=== PATIENT | male | born 1970 | race Two or more races ===

== ENCOUNTER → 2019-12-19 14:55 | Outpatient (BNVA) | payer MEDICAID, SELFPAY | PROVIDERS: PCP Family Medicine; Visit Provider Hospitalist | DX: J44.9 Chronic obstructive pulmonary disease, unspecified (principal); F17.200 Nicotine dependence, unspecified, uncomplicated; Z79.52 Long term (current) use of systemic steroids; Z71.6 Tobacco abuse counseling | CPT/HCPCS: 99214 ==

== ENCOUNTER 2019-12-23 08:29 | Day surgery (SDC) | payer MEDICAID, SELFPAY ==
[2019-12-16 11:11] VITALS: BMI 29.2
--- NOTE | 2019-12-22 15:33 | HO.ANESPROP2 ---
Documented by User: Ronit Oden 12/22/19 15:37 HPI - Anesthesia Eval Consult details Narrative: 49yo M for colonoscopy Cardiology cleared [facility] Past Medical History Medical History Anxiety Asthma Asthma-COPD overlap syndrome COPD (chronic obstructive pulmonary disease) Depression Elevated cholesterol GERD (gastroesophageal reflux disease) HTN (hypertension) Irritable bowel syndrome Osteoporosis Renal stones Tobacco dependence Family History Family History Father No problems noted. Mother No problems noted. Son No problems noted. Daughter No problems noted. Surgical History Surgical History Carpal tunnel syndrome H/O wrist surgery History of hydrocelectomy Hx of colonoscopy S/P carpal tunnel release S/P extracorporeal shock wave therapy Shoulder symptoms with history of shoulder arthroplasty Status post hip surgery Social History Social History Smoking Status: Current every day smoker Packs Per Day: 0.5 Cigarettes Per Day: 10.0 Years Smoked: 18 Smoked in Last 30 Days: Yes Patient Interested in Nicotine Replacement: No Patient Given Instructions on How to Stop Smoking: No Second Hand Smoke Exposure: No Use of substances other than those prescribed or required for medical reasons: No Advance Directives Information Provided: No Recently lost weight without trying: No Meds Allergies Allergy/AdvReac Type Severity Reaction Status Date / Time NSAIDS (Non-Steroidal Allergy Intermediate RASH Verified 12/21/19 21:52 Anti-Inflamma codeine [CODEINE] Allergy Unknown UNKNOWN Verified 12/21/19 21:52 Home Medications Medication Instructions Recorded Confirmed Type albuterol sulfate [ProAir HFA] 2 puff INHALATION Q6H PRN 12/16/19 12/21/19 History baclofen 20 mg PO TID 12/16/19 12/21/19 History bupropion HCl [Wellbutrin XL] 150 mg PO QAM 12/16/19 12/21/19 History cetirizine 10 mg PO DAILY 12/16/19 12/21/19 History cholecalciferol (vitamin D3) 50 mcg PO DAILY 12/16/19 12/21/19 History [Vitamin D3] famotidine [Pepcid] 20 mg PO DAILY 12/16/19 12/21/19 History gabapentin 300 mg PO DAILY 12/16/19 12/21/19 History ipratropium-albuterol 3 ml INHALATION Q4-6H PRN 12/16/19 12/21/19 History linaclotide [Linzess] 290 mcg PO DAILY 12/16/19 12/21/19 History zbnpyo-ujiysbiy-jxsjxug [Creon] 1 cap PO QID 12/16/19 12/21/19 History lisinopril 20 mg PO DAILY 12/16/19 12/21/19 History prednisone 10 mg PO DAILY 12/16/19 12/23/19 History tamsulosin 0.4 mg PO BEDTIME 12/16/19 12/21/19 History tramadol 50 mg PO Q6H PRN 12/16/19 12/21/19 History varenicline [Chantix] 1 mg PO BID 12/16/19 12/21/19 History zafirlukast [Accolate] 20 mg PO Q12H 12/16/19 12/23/19 History Exam Exam Date and Time: December 22, 2019 1533 Height,Weight and Vital Signs: Height 5 ft 8 in Weight 87.09 kg Pertinent Lab Results Pertinent Lab Results: EKG 11/2019: NSR @ 92 Laboratory Tests 09/16/19 09/16/19 00:24 00:24 WBC 18.2 H Hgb 14.3 Hct 43.1 Plt Count 303 Sodium 139 Potassium 3.7 Chloride 104 Bicarbonate 23 Anion Gap 16 BUN 21 H D Creatinine 0.80 Est GFR (Non-Af Amer) > 60 Assessment and Plan Assessment Anesthesia Assessment: Chart Reviewed Documented by User: Maye Stevenson 12/23/19 09:26 [facility] Past Medical History Medical History Anxiety Asthma Asthma-COPD overlap syndrome COPD (chronic obstructive pulmonary disease) Depression Elevated cholesterol GERD (gastroesophageal reflux disease) HTN (hypertension) Irritable bowel syndrome Osteoporosis Renal stones Tobacco dependence Family History Family History Father No problems noted. Mother No problems noted. Son No problems noted. Daughter No problems noted. Surgical History Surgical History Carpal tunnel syndrome H/O wrist surgery History of hydrocelectomy Hx of colonoscopy S/P carpal tunnel release S/P extracorporeal shock wave therapy Shoulder symptoms with history of shoulder arthroplasty Status post hip surgery Social History Social History Smoking Status: Current every day smoker Packs Per Day: 0.5 Cigarettes Per Day: 10.0 Years Smoked: 18 Smoked in Last 30 Days: Yes Patient Interested in Nicotine Replacement: No Patient Given Instructions on How to Stop Smoking: No Second Hand Smoke Exposure: No Use of substances other than those prescribed or required for medical reasons: No Advance Directives Information Provided: No Recently lost weight without trying: No Meds Allergies Allergy/AdvReac Type Severity Reaction Status Date / Time NSAIDS (Non-Steroidal Allergy Intermediate RASH Verified 12/21/19 21:52 Anti-Inflamma codeine [CODEINE] Allergy Unknown UNKNOWN Verified 12/21/19 21:52 Home Medications Medication Instructions Recorded Confirmed Type albuterol sulfate [ProAir HFA] 2 puff INHALATION Q6H PRN 12/16/19 12/21/19 History baclofen 20 mg PO TID 12/16/19 12/21/19 History bupropion HCl [Wellbutrin XL] 150 mg PO QAM 12/16/19 12/21/19 History cetirizine 10 mg PO DAILY 12/16/19 12/21/19 History cholecalciferol (vitamin D3) 50 mcg PO DAILY 12/16/19 12/21/19 History [Vitamin D3] famotidine [Pepcid] 20 mg PO DAILY 12/16/19 12/21/19 History gabapentin 300 mg PO DAILY 12/16/19 12/21/19 History ipratropium-albuterol 3 ml INHALATION Q4-6H PRN 12/16/19 12/21/19 History linaclotide [Linzess] 290 mcg PO DAILY 12/16/19 12/21/19 History uysrof-gvrgocyu-gnwbykh [Creon] 1 cap PO QID 12/16/19 12/21/19 History lisinopril 20 mg PO DAILY 12/16/19 12/21/19 History prednisone 10 mg PO DAILY 12/16/19 12/23/19 History tamsulosin 0.4 mg PO BEDTIME 12/16/19 12/21/19 History tramadol 50 mg PO Q6H PRN 12/16/19 12/21/19 History varenicline [Chantix] 1 mg PO BID 12/16/19 12/21/19 History zafirlukast [Accolate] 20 mg PO Q12H 12/16/19 12/23/19 History Assessment and Plan Final Anesthetic Review NPO: Yes ASA Class: III Final Preanesthetic Review: No Changes in Pt Med Stat, Meds & Allergies Reviewed, Consent Obtained/Reviewed, Med/Surg/Anes Hx Reviewed, Last Cigarette (If Appl.) and Anes Risks/Benef Reviewed Patient Risk: Intermediate Procedure Risk: Low Assessment/Block/Sedation in SS: Assess/Block/Sedation-SS Anesthetic Plan Anesthetic Plan: MAC: Disposition: Standard PACU
[2019-12-23 08:46] VITALS: BMI 28.8
[2019-12-23 08:48] VITALS: BP 128/89; PULSE 95; RESP 18; TEMP 36.1; O2SAT 96
[2019-12-23] MEDS: Lactated Ringers 1,000 ML 100 ML IVCONT (08:51)
[2019-12-23] MEDS: Albuterol Sulfate (0.083%) 2.5 MG/3 ML VIAL.NEB INHALE (08:59)
--- NOTE | 2019-12-23 09:05 | PM.OP ---
Brief Operative Note Date of procedure: 12/23/19 Pre-op diagnosis: Colon cancer screening, Heme positive stools, chronic constipation Post-op diagnosis: other (Multiple colon polyps, diverticulosis, hemorrhoids) Procedure: COLONOSCOPY PROCEDURE NOTE Consent: Indications for the procedure and potential complications of bleeding, perforation, reaction to medications and missed diagnosis were discussed with the patient with the help of a Wood Stock Blank Handler and informed consent was obtained. Instrument: Olympus PCF H 190 L variable stiffness pediatric colonoscope Monitoring: Vital signs and clinical assessment, intermittent blood pressure monitoring, continuous EKG monitoring, Pulse oximetry and Carbon Dioxide monitoring were done throughout the procedure. Colon withdrawl time was 40 minutes. Procedure: The patient was placed in the left lateral decubitis position and pre-procedure medications were administered. After a digital rectal examination of the ano-rectum, the video colonoscope was inserted into the rectum and advanced through the colon to the cecum. The colonoscope was slowly withdrawn in a retrograde panoramic fashion and the colon mucosa was carefully examined including a retroflexed view of the rectum. Findings and interventions are described below. Procedure Difficulty: Colon was long and there was spasm and some loop formation Findings: Terminal Ileum: Not evaluated Cecum: Partially evaluated due to sub-optimal prep. Mucosa appeared nodular and random biopsies were obtained. A 12-15 mm flat polyp raised with 5 cc of normal saline (submucosal injection) and removed with a hot snare. Polyp was not retrieved. Ascending Colon: Two 12-15 mm sessile polyps removed with a hot snare. Transverse Colon: Two 4-5 mm sessile polyps removed with a cold bx. Two 12-20 mm sessile polyps removed with a hot snare. Several additional polyps noted and not removed due to suboptimal prep with spasm and excessive length of the procedure. Descending Colon: Several additional polyps noted and not removed due to suboptimal prep with spasm and excessive length of the procedure. Sigmoid Colon: Several additional polyps noted and not removed due to suboptimal prep with spasm and excessive length of the procedure and moderate diverticulosis Rectum: Partially evaluated due to suboptimal prep. Ano-rectum: Moderate hemorrhoids and retroflexed exam was not performed. Colon preparation: Fair to poor despite copious irrigation. Pt did not finish his prep. Impression and Post Procedure Diagnosis: Colonoscopy Findings: Seven polyps removed - one polyp not retrieved. Several additional polyps noted and not removed due to suboptimal prep with spasm and excessive length of the procedure Moderate diverticulosis seen in the sigmoid colon Moderate hemorrhoids on antegrade exam. Fair to poor prep despite copious irrigation. (Pt reported taking 75% of his prep) Plan: Await pathology results Patient has an appointment on 12/31/19 in the [facility] with Gauri Garcia NP.. Repeat Colonoscopy in 3-4 months due to fair to poor prep - needs 2 day prep and Miralax twice daily the week before the procedure. Above findings were reviewed with the patient and colon polyps and diverticulosis handouts were given in the discharge area Of note, patient complained of 9/10 Rt flank pain prior to the procedure which became worse after the procedure. He was advised to go to [facility] after the procedure for further evaluation. Pt is planning to go to the ER tomorrow - just wanted to go home today. Anesthesia: MAC (Dr Mojica) Surgeon: Matt Michael Pathology: other (A. Cecal bx B. AC polyps x 2 C. TC polyps x 4) Condition: stable Disposition: PACU
--- NOTE | 2019-12-23 09:06 | MHC.SHP ---
Pre-Procedural Eval Section A The patient is an INPATIENT: No Section B Chief Complaint: SCREENING Medical History: Significant History (Abdominal aortic aneurysm. Asthma. Constipation. Depression. Anxiety. Osteoporosis. STATUS POST INTUBATION. LT SHOULDER PAIN. Renal stones. ) Allergies: Allergies Allergy/AdvReac Type Severity Reaction Status Date / Time NSAIDS (Non-Steroidal Allergy Intermediate RASH Verified 12/21/19 21:52 Anti-Inflamma codeine [CODEINE] Allergy Unknown UNKNOWN Verified 12/21/19 21:52 Plan Patient has been examined and remains a candidate for the planned procedure
--- NOTE | 2019-12-23 09:14 | MHC.SHP ---
Pre-Procedural Eval Section A Changes since office visit: Yes Patient answered all questions; No Cold of Flu in the past 2 weeks The History & Physical has been completed within 30 days and I have reviewed it.: No Section B Chief Complaint: SCREENING Details of Present Illness: Colon cancer screening, Heme + stools, chronic constipation, abdominal pain Relevant Family History (Specify if Yes): No Relevant Social History: Tobacco Use Present Medications: see Short Stay Collaborative assessment Medical History: Significant History (AAA, asthma - status post intubation, constipation, depression, anxiety, osteoporosis, renal stones) History of Previous Operations: No relevant previous surgery Allergies: Allergies Allergy/AdvReac Type Severity Reaction Status Date / Time NSAIDS (Non-Steroidal Allergy Intermediate RASH Verified 12/21/19 21:52 Anti-Inflamma codeine [CODEINE] Allergy Unknown UNKNOWN Verified 12/21/19 21:52 Review of Systems Sugical H&P ROS: Negative: Constitution, Cardiovascular, Neurological and Musculoskeletal and Yes, Specify: Respiratory (wheezing due to asthma), Psychiatric (anxiety and depression) and Genitourinary (Rt flank pain) Exam Surgical H&P Exam: Normal: Heart, Normal: Lungs, Normal: Extremities, Normal: Skin and Normal: Neurological and Significant Findings: Abdomen (Rt flank tenderness) Plan Diagnosis/Plan: Unchanged Patient has been examined and remains a candidate for the planned procedure
[2019-12-23 10:46] VITALS: BP 97/61; PULSE 94; RESP 16; TEMP 37.1; O2SAT 96
[2019-12-23 11:02] VITALS: BP 100/53; PULSE 81; RESP 16; O2SAT 96
[2019-12-23 11:17] VITALS: BP 100/68; PULSE 88; RESP 15; O2SAT 94
[2019-12-23 11:31] VITALS: BP 114/74; PULSE 81; RESP 15; TEMP 36.4; O2SAT 96
--- NOTE | 2019-12-23 12:15 | HO.POSTANES ---
Post Anesthesia Evaluation Post Anesthesia Evaluation Vital Signs: Vital Signs Temp Pulse Resp BP Pulse Ox 12/23/19 11:31 97.5 F 81 15 114/74 96 12/23/19 11:17 88 15 100/68 94 12/23/19 11:02 81 16 100/53 L 96 12/23/19 10:46 98.8 F 94 16 97/61 96 12/23/19 08:48 97.0 F 95 18 128/89 96 Anesthesia: Monitored Mental Status: Awake Pain Control: Satisfactory Nausea/Vomiting: None Hydration: Adequate Anesthesia-Related Issues: No Anes. Related Issues
== END 2019-12-23 12:35 | disposition home or self-care (01) ==
PROVIDERS: PCP Family Medicine; Visit Provider Internal Medicine Gastroenterology
PROC: 0DJD8ZZ Inspection of Lower Intestinal Tract, Via Natural or Artificial Opening Endoscopic (ICD-10-PCS; CPT 45378; principal; 2019-12-23 09:00)
DX: Z12.11 Encounter for screening for malignant neoplasm of colon (principal); D12.2 Benign neoplasm of ascending colon; K59.04 Chronic idiopathic constipation; D12.3 Benign neoplasm of transverse colon; K63.5 Polyp of colon; G89.18 Other acute postprocedural pain; R10.9 Unspecified abdominal pain; K57.30 Diverticulosis of large intestine without perforation or abscess without bleeding; K64.8 Other hemorrhoids; K21.9 Gastro-esophageal reflux disease without esophagitis; J44.9 Chronic obstructive pulmonary disease, unspecified; M81.0 Age-related osteoporosis without current pathological fracture; I10 Essential (primary) hypertension; F32.9 Major depressive disorder, single episode, unspecified; Z87.442 Personal history of urinary calculi; Z88.8 Allergy status to other drugs, medicaments and biological substances; Z79.899 Other long term (current) drug therapy; F17.210 Nicotine dependence, cigarettes, uncomplicated
CPT/HCPCS: 45385; 45380; 45381; 88305; 94640

== ENCOUNTER → 2019-12-31 13:25 | Outpatient (BNVA) | payer MEDICAID, SELFPAY | PROVIDERS: PCP Family Medicine; Referring Provider Family Medicine; Visit Provider Nurse Practitioner | DX: Z76.89 Persons encountering health services in other specified circumstances (principal) ==

== ENCOUNTER → 2020-03-18 13:17 | Outpatient (BNVA) | payer MEDICAID, SELFPAY | PROVIDERS: PCP Family Medicine; Visit Provider Nurse Practitioner | DX: Z76.89 Persons encountering health services in other specified circumstances (principal) ==

== ENCOUNTER 2020-03-25 09:00 | Outpatient (REF) | payer MEDICAID, SELFPAY ==
--- NOTE | 2020-03-25 09:05 | US_ITS ---
EXAMINATION: US ABDOMEN COMPLETE CLINICAL INFORMATION: Intra-abdominal and pelvic swelling, mass and lump, unspecified site. COMPARISON: CT abdomen and pelvis without contrast dated 04/14/2019. Limited abdominal ultrasound dated 04/11/2019. Ultrasound renals only dated 02/15/2019. KUB dated 12/25/2016. X-ray abdomen upright decubitus dated 01/24/2015. TECHNIQUE: Real-time imaging of the abdominal viscera. Technically difficult study secondary to bowel gas and body habitus. FINDINGS: PANCREAS: Most of the pancreas is obscured by overlying gas. ABDOMINAL AORTA: The mid and distal segments are normal in caliber. The proximal abdominal aorta is largely obscured by overlying gas. INFERIOR VENA CAVA: Visualized portions are normal. LIVER: The liver is diffusely echogenic, enlarged and normal contour. It measures 18.2 cm in length. There is focal fatty sparing adjacent to the gallbladder. There is no intrahepatic biliary duct dilatation seen. There is hepatopedal flow seen in the middle portal vein on Doppler exam. GALLBLADDER: The gallbladder wall thickness is 0.2 cm. The gallbladder is physiologically distended without evidence of stones, sludge, polyps, wall thickening or pericholecystic fluid. There is a focal echogenic calcification in the gallbladder wall without shadowing. COMMON BILE DUCT: Normal in caliber measuring 0.5 cm in diameter. RIGHT KIDNEY: A prominent right ureter is seen. No hydronephrosis. No renal calculi or focal parenchymal lesions. The kidney measures 12.7 cm in maximum dimension. LEFT KIDNEY: Normal. No hydronephrosis. No renal calculi or focal parenchymal lesions. The kidney measures 13.1 cm in maximum dimension. SPLEEN: Normal. The spleen measures 8.8 cm in maximum dimension. FREE FLUID: None. US/US abdomen complete IMPRESSION: Diffuse fatty infiltration of liver with focal fatty sparing adjacent to the gallbladder. No focal lesion seen. Mild hepatomegaly. Small calcification of the gallbladder wall without shadowing. No echogenic stones. The pancreas and proximal abdominal aorta is obscured by overlying gas. There is mild dilated right proximal ureter.
== END 2020-03-25 09:01 | disposition home or self-care (01) ==
LOC: HO.US 09:00
PROVIDERS: Visit Provider Nurse Practitioner
DX: R19.00 Intra-abdominal and pelvic swelling, mass and lump, unspecified site (principal)
CPT/HCPCS: 76700

== ENCOUNTER 2020-04-12 16:07 | Outpatient (REF) | payer MEDICAID, SELFPAY ==
[2020-04-12 17:52] LABS: Basophils Absolute Auto 0.1 X10*3/uL (0.0-0.2); Basophils Percent Auto 0.5 % (0-2); Eosinophils Absolute Auto 0.2 X10*3/uL (0.0-0.4); Hematocrit 46.7 % (42-52); Hemoglobin 15.4 g/dl (14.0-18.0); Lymphocytes Percent Auto 15.8 % (20-40); MANUAL DIFF FLAG SCAN; Mean Corpuscular Hemoglobin 30.6 pg (27.0-33.0); Mean Corpuscular Volume 92.7 fL (80-98); Mean Platelet Volume 8.8 fL (9.4-12.4); Monocytes Absolute Auto 1.6 X10*3/uL (0.1-1.2); Monocytes Percent Auto 8.1 % (2-11); Neutrophils Absolute Auto 14.1 X10*3/uL (2.0-8.3); Neutrophils Percent Auto 73.6 % (45-73); Platelet Count 370 X10*3/uL (160-400); Red Blood Count 5.04 X10*6/uL (4.60-5.80); Red Cell Distribution Width 13.2 % (11.0-16.0); SCAN SMEAR FLAG 1; White Blood Count 19.2 X10*3/uL (4.8-10.8)
[2020-04-12 17:55] LABS: Glucose Urine UA 100 MG/DL (NEG); Leukocyte Esterase Urine NEG (NEG); Nitrite Urine NEG (NEG); Specific Gravity - Urine 1.025 (1.005-1.025); Urine Blood 2+ (NEG); Urine Ketones NEG (NEG); Urine Protein NEG (NEG-TRACE)
[2020-04-12 18:08] LABS: Alanine Aminotransferase 24 U/L (0-40); Albumin Level 4.2 g/dL (3.5-5.0); Alkaline Phosphatase 93 U/L (39-117); Anion Gap 13 (12-20); Aspartate Amino Transferase 13 U/L (5-37); Bilirubin Total 0.5 mg/dL (0.0-1.0); Blood Urea Nitrogen 12 mg/dL (9-16); Calcium 9.9 mg/dL (8.4-10.2); Carbon Dioxide 29 mmol/L (22-29); Chloride 99 mmol/L (96-108); Estimated Glomerular Filt Rate > 60; Glucose Random 145 mg/dL (60-115); Potassium 4.2 mmol/l (3.3-5.1); Sodium 137 mmol/L (135-145); Total Protein 7.3 g/dL (6.5-8.0)
[2020-04-12 18:18] LABS: SLIDE REVIEW VERIFIED
[2020-04-12 18:21] LABS: Appearance Urine CLEAR; Color Urine YELLOW
[2020-04-12 18:26] LABS: WBC Urine 0-2 /HPF (0-4)
[2020-04-12 18:26] LABS: Syphilis Screen Nonreactive (Nonreactive)
[2020-04-14 19:02] LABS: C. trachomatis RNA TMA NOT DETECTED (NOT DETECTED); N. gonorrhoeae RNA TMA NOT DETECTED (NOT DETECTED)
== END 2020-04-12 16:08 | disposition home or self-care (01) ==
LOC: HO.LAB 16:07
PROVIDERS: PCP Family Medicine; Visit Provider Nurse Practitioner
DX: R19.00 Intra-abdominal and pelvic swelling, mass and lump, unspecified site (principal); R14.0 Abdominal distension (gaseous); K21.9 Gastro-esophageal reflux disease without esophagitis; K59.04 Chronic idiopathic constipation; R36.9 Urethral discharge, unspecified; R30.9 Painful micturition, unspecified; L02.91 Cutaneous abscess, unspecified; Z86.010 Personal history of colon polyps
CPT/HCPCS: 36415; 80053; 81001; 85025; 86780; 87491; 87591; 99212

== ENCOUNTER → 2020-04-26 14:46 | Outpatient (BNVA) | payer MEDICAID, SELFPAY | PROVIDERS: PCP Family Medicine; Visit Provider Nurse Practitioner | DX: Z13.89 Encounter for screening for other disorder (principal) | CPT/HCPCS: 99212 ==

== ENCOUNTER 2020-05-07 12:32 | Outpatient (REF) | payer MEDICAID, SELFPAY | END 2020-05-07 12:33 | disposition home or self-care (01) | LOC: HO.LAB 12:32 | PROVIDERS: Visit Provider Internal Medicine | DX: Z20.822 Contact with and (suspected) exposure to COVID-19 (principal) | CPT/HCPCS: 36415; C9803; U0003; U0005 ==

== ENCOUNTER → 2020-05-13 10:33 | Outpatient (BNVA) | payer MEDICAID, SELFPAY | PROVIDERS: PCP Family Medicine; Visit Provider Surgery | DX: R10.9 Unspecified abdominal pain (principal); G89.29 Other chronic pain | CPT/HCPCS: 99202 ==

== ENCOUNTER 2020-06-07 07:24 | Outpatient (REF) | payer MEDICAID, SELFPAY | END 2020-06-07 07:25 | disposition home or self-care (01) | LOC: HO.HOSX 07:24 | PROVIDERS: Visit Provider Orthopaedic Surgery | DX: Z13.89 Encounter for screening for other disorder (principal) ==

== ENCOUNTER 2020-06-09 12:49 | Outpatient (REF) | payer MEDICAID, SELFPAY ==
--- NOTE | ~2020-06-09 | CT_ITS ---
EXAMINATION: CT CHEST WITHOUT CONTRAST CLINICAL INFORMATION: Abnormal finding lung field. History of pulmonary nodules COMPARISON: Previous chest CT May 2018 and previous chest x-ray most recent August 2019 TECHNIQUE: Multidetector volumetric CT imaging of the chest was done. Axial MIP volume rendering provided. Sagittal and coronal reformatted images were obtained. This CT examination was performed using dose optimization techniques as appropriate, variously including the following: *Automated exposure control *Adjustment of mA and/or kV according to patient size (this includes techniques or standardized protocols for targeted exams where dose is matched to indication/reason for exam; i.e. extremities or head) *Use of iterative reconstruction technique DLP: 299 mGy-cm FINDINGS: LUNGS: There are new areas of bronchial wall thickening, bronchial soft tissue opacification and new peribronchial nodules. This is seen diffusely throughout the lungs but greatest at the lung bases. Largest new peribronchial nodules measure 5 mm in the right upper lobe axial image 222 series 4 and 6 x 8 mm in the right lower lobe axial image 288 series 4. The previously identified right middle lobe nodule measuring 3 x 5 measuring 4 mm axial image 347 series 4 is stable. The previously identified lingular nodule is not seen. There is minimal scarring or subsegmental atelectasis in the inferior segment of the lingula and both lower lobes that is stable. MEDIASTINUM: There is coronary artery calcification. The mediastinum is otherwise normal. PLEURA: There is no pleural effusion. No pleural mass or thickening. AXILLA: No lymphadenopathy. UPPER ABDOMEN: Unremarkable. OSSEOUS STRUCTURES: There are old bilateral rib fractures. There are degenerative changes of the spine. CT/CT chest wo con IMPRESSION: Extensive bronchial wall thickening, bronchial soft tissue opacification and peribronchial nodules increased from May 2018 exam. This probably represents an infectious or inflammatory process. Chest CT follow-up following treatment should be considered. Coronary artery calcification.
== END 2020-06-09 12:50 | disposition home or self-care (01) ==
LOC: HO.CT 12:49
PROVIDERS: Visit Provider Family Medicine
DX: R91.8 Other nonspecific abnormal finding of lung field (principal)
CPT/HCPCS: 71250

== ENCOUNTER 2020-06-11 15:53 | Emergency (ER) | payer MEDICAID, SELFPAY ==
[2020-06-11 16:23] VITALS: BP 144/84; PULSE 87; RESP 16; TEMP 37.1; O2SAT 96; BMI 34.9
[2020-06-11 16:27] LABS: COVID-19 Test Negative (Negative)
== END 2020-06-11 19:02 | disposition left against medical advice (07) ==
PROVIDERS: Emergency Provider Emergency Medicine; PCP Family Medicine
DX: Z20.822 Contact with and (suspected) exposure to COVID-19 (principal)
CPT/HCPCS: 36415; 87635; 99282

== ENCOUNTER 2020-06-13 12:57 | Emergency (ER) | payer MEDICAID, SELFPAY ==
[2020-06-13 14:49] VITALS: BP 137/85; PULSE 84; RESP 16; TEMP 36.8; O2SAT 95; BMI 62.0
--- NOTE | 2020-06-13 15:02 | ED_ITS ---
HPI - General Adult General Chief complaint: Recheck/Abnormal Lab/Rx Stated complaint: covid exposed Time Seen by Provider: 06/13/20 14:40 Source: patient Mode of arrival: ambulatory Limitations: no limitations History of Present Illness HPI narrative: 50-year-old male with a past medical history of hypertension, COPD, asthma, anxiety, depression and GERD presenting to the ED for a COVID swab after he tested negative approximately 5 days ago. Reports his tested positive 5 days ago. He was told by his PCP to return today for repeat COVID testing. He denies any symptoms. denies any additional complaints or concerns. Related Data Home Medications Medication Instructions Recorded Confirmed Chantix 1 mg PO BID 12/16/19 06/04/20 albuterol sulfate [ProAir HFA] 2 puff INHALATION Q6H PRN 12/16/19 06/04/20 baclofen 20 mg PO TID 12/16/19 06/04/20 bupropion HCl [Wellbutrin XL] 150 mg PO QAM 12/16/19 06/04/20 cetirizine 10 mg PO DAILY 12/16/19 06/04/20 cholecalciferol (vitamin D3) 50 mcg PO DAILY 12/16/19 06/04/20 [Vitamin D3] famotidine [Pepcid] 20 mg PO DAILY 12/16/19 06/04/20 ipratropium-albuterol 3 ml INHALATION Q4-6H PRN 12/16/19 06/04/20 lisinopril 20 mg PO DAILY 12/16/19 06/04/20 prednisone 10 mg PO DAILY 12/16/19 06/04/20 tamsulosin 0.4 mg PO BEDTIME 12/16/19 06/04/20 tramadol 50 mg PO Q6H PRN 12/16/19 06/04/20 zafirlukast [Accolate] 20 mg PO Q12H 12/16/19 06/04/20 docusate sodium 100 mg capsule 100 mg PO DAILY 12/30/19 06/04/20 acetaminophen [Arthritis Pain 1 tab PO Q8H PRN 06/04/20 06/04/20 Relief (acetam)] amlodipine 1 tab PO DAILY 06/04/20 06/04/20 atorvastatin 1 tab PO BEDTIME 06/04/20 06/04/20 budesonide-formoterol [Symbicort] 2 puff PO BID 06/04/20 06/04/20 calcium carbonate-vitamin D3 1 tab PO BID 06/04/20 06/04/20 gabapentin 2 cap PO TID 06/04/20 06/04/20 lidocaine 1 patch TOPICAL Q12H 06/04/20 06/04/20 mirtazapine mg PO 06/04/20 omeprazole 1 cap PO DAILY 06/04/20 06/04/20 Previous Rx's Medication Instructions Recorded fluticasone fur. 100 mcg-umeclid 1 inh INHALATION DAILY 30 Days #60 12/19/19 62.5 mcg-vilant 25 mcg ea inhalat.powder ipratropium 20 mcg-albuterol 100 2 puff INHALATION QID 30 Days #8 g 12/19/19 mcg/actuation mist for inhalation nystatin 500,000 unit tablet 500,000 unit PO TID 10 Days #30 tab 12/19/19 simethicone 180 mg capsule 180 mg PO QID 30 Days #120 cap 12/30/19 roflumilast 250 mcg tablet 250 mcg PO DAILY #28 tab 03/08/20 bnokuv-lehgnioz-ipnlges 1 cap PO QID #120 cap 03/09/20 24,000-76,000-120,000 unit capsule,delayed rel linaclotide 290 mcg capsule 290 mcg PO DAILY 30 Days #30 cap 04/12/20 magnesium citrate 150 ml PO DAILY #296 ml 04/12/20 nystatin 100,000 unit/gram topical 1 appl TOPICAL TID #30 g 04/12/20 ointment sulfamethoxazole 800 1 tab PO Q12H #14 tab 04/12/20 mg-trimethoprim 160 mg tablet bisacodyl 5 mg tablet,delayed 10 mg PO ONCE 1 Days #2 tab 04/29/20 release polyethylene glycol 3350 17 238 g PO ONCE 1 Days #238 g 04/29/20 gram/dose oral powder acetaminophen [Tylenol Extra 1,000 mg PO QID PRN #14 tab 06/13/20 Strength] albuterol sulfate 0.63 mg INHALATION QID PRN #75 ml 06/13/20 azithromycin See Rx Instructions .ROUTE 06/13/20 .COMPLEX #6 tab Allergies Allergy/AdvReac Type Severity Reaction Status Date / Time ibuprofen [From Motrin] Allergy Rash Verified 06/04/20 15:19 Review of Systems Review of Systems: Constitutional : No Fever, No Chills, No fatigue, No Malaise ENT/Mouth : No sore throat, No runny nose Eyes: No Discharge Cardiovascular : No Chest Pain, No SOB Respiratory : No Cough, No Sputum, No Wheezing, No Smoke Exposure, No Dyspnea Gastrointestinal : No Nausea, No Vomiting, No Diarrhea Genitourinary : No irregular bleeding, No Dysuria, No Urinary Frequency, No Hematuria, No Urinary Incontinence, No Urgency, No Flank Pain, Musculoskeletal : No Myalgia Skin : No rash Neuro : No Headache Yes all other systems are reviewed and are negative [facility] Past Medical History Attestation statement: The following information was validated with the patient. Medical History Anxiety and depression Arthritis Asthma Asthma-COPD overlap syndrome Back pain Chronic abdominal pain COPD (chronic obstructive pulmonary disease) Elevated cholesterol GERD (gastroesophageal reflux disease) History of kidney stones HTN (hypertension) Irritable bowel syndrome Osteoporosis Tobacco dependence Tubular adenoma of colon Surgical History Carpal tunnel syndrome (~08/2014) H/O wrist surgery History of hydrocelectomy Hx of colonoscopy S/P carpal tunnel release S/P extracorporeal shock wave therapy Shoulder symptoms with history of shoulder arthroplasty Status post hip surgery Family History Family History Father No problems noted. Mother No problems noted. Son No problems noted. Daughter No problems noted. Social History Social History Alcohol intake: current Alcohol intake frequency: does not drink Smoking Status: Current every day smoker Packs Per Day: 0.5 Cigarettes Per Day: 10.0 Years Smoked: 18 Second Hand Smoke Exposure: No Advance Directives: No Advance Directives Information Provided: No Physical Exam Vital Signs: Vital Signs: Last Vital Signs Temp 98.3 F 06/13/20 14:49 Pulse 84 06/13/20 14:49 Resp 16 06/13/20 14:49 BP 137/85 06/13/20 14:49 Pulse Ox 95 06/13/20 14:49 Body Mass Index 62.0 vital signs have been reviewed as normal and appeared to be correct. Blood pressure normal. Heart rate normal. Respiration rate normal. Temperature normal. Oxygen saturation normal. Appearance: Alert. Oriented X3. No acute distress. Head: Normal external exam. Normocephalic. Atraumatic. Eyes: PERRLA. EOMI. Conjunctiva and sclera normal. Eyelids normal. ENT: Pharynx normal. Uvula midline. Moist mucous membranes. Neck: Normal inspection. Neck supple. FROM. No adenopathy. Thyroid Normal. No meningeal signs. No neck mass noted. CVS: Normal heart rate and rhythm. Heart sound normal. No murmurs noted. Pulses normal throughout. Respiratory: No respiratory distress. Painless inspiration. Breath sounds normal. No wheezes/rales/rhonchi noted. Chest nontender. No accessory muscle usage noted or decreased air movement noted. Back: No CVA tenderness. Full range of motion noted. Skin: Skin warm and dry. Normal skin color. Normal skin turgor. No rashes/lesions/lacerations noted. Extremities: Extremities exhibit normal range of motion. Extremities nontender. Neuro: Oriented X 3. No motor deficit. No sensory deficit. Reflexes normal. Course Course Course Narrative: 50-year-old male presenting to the ED for COVID testing denies any symptoms close contacts was positive. Will test for COVID and DC home with symptomatic treatment instructions return if any new or worsening symptoms to follow up with primary care provider and to self isolate. Patient understands agrees with this plan. Medical Decision Making Medical Records Medical records reviewed: Yes I reviewed the patient's medical records. Discharge Plan Discharge Clinical Impression: Close exposure to COVID-19 virus Patient Disposition: Home, Self-Care Instructions: COVID-19 (Coronavirus Disease 2019) (ED) Additional Instructions: Based on your symptoms and history we have sent a COVID-19. Although your RESULT IS PENDING at this time. RESULTS should return within 2-4 hours. At this time you will be contacted with either NEGATIVE OR POSITIVE results. -Please wait until we contact you for your results. At this time you will be okay for discharge. Please plan for self quarantine for up to 14 days. Do not expose yourself to others. You may not go to work. If testing does come back negative you may return to activities as long as you are no longer having any symptoms for at least 3 days. Please continue to follow cold instructions and wash your hands frequently. You may take Tylenol as directed on the bottle for pain or fever. Patient seen in the emergency department on 06/13/2020 and should be excused from work until negative test results AND until 72 hours without any symptoms AND at least 10 days have passed since symptoms first appeared or since last exposure to COVID-19 positive patient CDC Guidelines for home isolation: - Stay away from others - WEAR A MASK if you are sick AND STAY HOME - Cover your mouth and nose with a tissue when you cough or sneeze. Dispose of tissues in a lined trash can and wash your hands immediately with soap and water for at least 20 seconds. If soap and water are not available, clean hands with alcohol-based hand banana carrier that contains at least 60% alcohol. - Clean your hands often with soap and water for at least 20 seconds - Avoid touching your eyes, nose and mouth with unwashed hands - Do not share dishes, drinking glasses, cups, eating utensils, towels, or bedding with other people in your home. After using these items, wash them thoroughly with soap and water or put in the [employer] clerk. - Clean high-touch surfaces in your isolation area ( sick room and bathroom) every day; let a caregiver clean and disinfect high-touch surfaces in other areas of the home. Clean the area or item with soap and water or another detergent if it is dirty. Then, use a household disinfectant. - Limit contact with pets and animals: If you must care for a pet, wash your hands before and after interacting with them). Prescriptions: New albuterol sulfate 0.63 mg/3 mL solution for nebulization 0.63 mg inhalation QID PRN (Reason: shortness of breath or wheezing) Qty: 75 RF: 0 azithromycin 250 mg tablet See Rx Instructions .ROUTE .COMPLEX Qty: 6 RF: 0 acetaminophen [Tylenol Extra Strength] 500 mg tablet 1,000 mg PO QID PRN (Reason: fever or pain) Qty: 14 RF: 0 No Action roflumilast [Daliresp] 250 mcg tablet 250 mcg PO DAILY Qty: 28 RF: 0 tkdtkq-twsaznoo-ivosrtn [Creon] 24,000-76,000 -120,000 unit capsule,delayed release(/EC) 1 cap PO QID Qty: 120 RF: 2 bisacodyl [Dulcolax (bisacodyl)] 5 mg tablet,delayed release (DR/EC) 10 mg PO ONCE 1 Days Qty: 2 RF: 0 polyethylene glycol 3350 [Miralax] 17 gram/dose powder 238 g PO ONCE 1 Days Qty: 238 RF: 0 prednisone 10 mg Tablet 10 mg PO DAILY RF: 0 ipratropium-albuterol 0.5 mg-3 mg(2.5 mg base)/3 mL Solution For Nebulization 3 ml INHALATION Q4-6H PRN (Reason: Shortness Of Breath) RF: 0 cetirizine 10 mg Tablet 10 mg PO DAILY RF: 0 lisinopril 20 mg Tablet 20 mg PO DAILY RF: 0 tramadol 50 mg Tablet 50 mg PO Q6H PRN (Reason: Pain) RF: 0 baclofen 20 mg Tablet 20 mg PO TID RF: 0 famotidine [Pepcid] 20 mg Tablet 20 mg PO DAILY RF: 0 tamsulosin 0.4 mg Capsule 0.4 mg PO BEDTIME RF: 0 zafirlukast [Accolate] 20 mg Tablet 20 mg PO Q12H RF: 0 albuterol sulfate [ProAir HFA] 90 mcg/actuation Hfa Aerosol Inhaler 2 puff INHALATION Q6H PRN (Reason: Shortness Of Breath) RF: 0 bupropion HCl [Wellbutrin XL] 150 mg Tablet Extended Release 24 Hr 150 mg PO QAM RF: 0 Chantix 1 mg Tablet 1 mg PO BID RF: 0 cholecalciferol (vitamin D3) [Vitamin D3] 50 mcg (2,000 unit) Tablet 50 mcg PO DAILY RF: 0 atorvastatin 10 mg tablet 1 tab PO BEDTIME RF: 0 amlodipine 5 mg tablet 1 tab PO DAILY RF: 0 acetaminophen [Arthritis Pain Relief (acetam)] 650 mg tablet extended release 1 tab PO Q8H PRN (Reason: Pain) RF: 0 mirtazapine 30 mg tablet PO RF: 0 lidocaine 5 % adhesive patch,medicated 1 patch topical Q12H RF: 0 gabapentin 300 mg capsule 2 cap PO TID RF: 0 omeprazole 20 mg capsule,delayed release(DR/EC) 1 cap PO DAILY RF: 0 calcium carbonate-vitamin D3 250-125 mg-unit tablet 1 tab PO BID RF: 0 budesonide-formoterol [Symbicort] 160-4.5 mcg/actuation HFA aerosol inhaler 2 puff PO BID RF: 0 docusate sodium [Colace] 100 mg capsule 100 mg PO DAILY RF: 0 simethicone 180 mg capsule 180 mg PO QID 30 Days Qty: 120 RF: 3 Linzess 290 mcg capsule 290 mcg PO DAILY 30 Days Qty: 30 RF: 6 magnesium citrate Solution 150 ml PO DAILY Qty: 296 RF: 0 sulfamethoxazole-trimethoprim [Bactrim DS] 800-160 mg tablet 1 tab PO Q12H Qty: 14 RF: 0 nystatin 100,000 unit/gram ointment 1 appl topical TID Qty: 30 RF: 3 Trelegy Ellipta 100-62.5-25 mcg blister with device 1 inh inhalation DAILY 30 Days Qty: 60 RF: 11 Combivent Respimat 20-100 mcg/actuation mist 2 puff inhalation QID 30 Days Qty: 8 RF: 11 nystatin 500,000 unit tablet 500,000 unit PO TID 10 Days Qty: 30 RF: 3 Referrals: Amna Richards DO [Primary Care Provider] - 2 days Discharge Date/Time: 06/13/20 15:08 Print Language: German
[2020-06-13 16:52] LABS: Influenza A PCR NEGATIVE (Negative); Influenza B PCR NEGATIVE (Negative); Resp Syncy Virus RNA Qual PCR NEGATIVE (Negative); SARS COV2 PCR INHOUSE POSITIVE (Negative)
== END 2020-06-13 15:08 | disposition home or self-care (01) ==
PROVIDERS: Physician Assistant Medical; Emergency Provider Emergency Medicine; PCP Family Medicine
DX: R50.9 Fever, unspecified (principal); R79.89 Other specified abnormal findings of blood chemistry; F17.210 Nicotine dependence, cigarettes, uncomplicated; Z71.6 Tobacco abuse counseling; Z20.822 Contact with and (suspected) exposure to COVID-19; Z79.899 Other long term (current) drug therapy
CPT/HCPCS: 0241U; 36415; 99283

== ENCOUNTER → 2020-06-17 15:05 | Outpatient (BNVA) | payer MEDICAID, SELFPAY | PROVIDERS: PCP Family Medicine; Visit Provider Hospitalist ==

== ENCOUNTER 2020-06-28 14:32 | Outpatient (REF) | payer MEDICAID, SELFPAY | END 2020-06-28 14:33 | disposition home or self-care (01) | LOC: HO.LAB 14:32 | PROVIDERS: Visit Provider Internal Medicine | DX: Z20.822 Contact with and (suspected) exposure to COVID-19 (principal) | CPT/HCPCS: C9803; U0003; U0005 ==

== ENCOUNTER → 2020-07-01 15:17 | Outpatient (BNVA) | payer MEDICAID, SELFPAY | PROVIDERS: PCP Family Medicine; Visit Provider Hospitalist ==

== ENCOUNTER 2020-07-05 11:04 | Outpatient (REF) | payer MEDICAID, SELFPAY ==
[2020-07-05 11:58] LABS: MANUAL DIFF FLAG NO
[2020-07-05 12:02] LABS: Basophils Absolute Auto 0.1 X10*3/uL (0.0-0.2); Basophils Percent Auto 0.4 % (0-2); Eosinophils Absolute Auto 0.1 X10*3/uL (0.0-0.4); Eosinophils Percent Auto 0.8 % (0-4); Hematocrit 42.4 % (42-52); Hemoglobin 14.3 g/dl (14.0-18.0); Imm Gran Abs Auto 0.24 X10*3/uL (0.00-0.03); Lymphocytes Absolute Auto 4.4 X10*3/uL (1.2-4.9); Lymphocytes Percent Auto 36.5 % (20-40); Mean Corpuscular HGB Conc 33.7 g/dl (31.0-36.0); Mean Corpuscular Hemoglobin 30.1 pg (27.0-33.0); Mean Corpuscular Volume 89.3 fL (80-98); Mean Platelet Volume 8.9 fL (9.4-12.4); Monocytes Absolute Auto 0.8 X10*3/uL (0.1-1.2); Monocytes Percent Auto 6.5 % (2-11); Neutrophils Absolute Auto 6.5 X10*3/uL (2.0-8.3); Neutrophils Percent Auto 53.8 % (45-73); Platelet Count 326 X10*3/uL (160-400); Red Blood Count 4.75 X10*6/uL (4.60-5.80); Red Cell Distribution Width 13.1 % (11.0-16.0); White Blood Count 12.1 X10*3/uL (4.8-10.8)
[2020-07-05 12:27] LABS: Anion Gap 13 (12-20); Blood Urea Nitrogen 10 mg/dL (9-16); Calcium 8.2 mg/dL (8.4-10.2); Carbon Dioxide 28 mmol/L (22-29); Chloride 100 mmol/L (96-108); Estimated Glomerular Filt Rate > 60; Glucose Random 253 mg/dL (60-115); Potassium 3.4 mmol/L (3.3-5.1); Sodium 138 mmol/L (135-145)
[2020-07-05 13:05] LABS: SARS COV2 IgG Positive (Negative)
[2020-07-05 13:09] LABS: Erythrocyte Sedimentation Rate 8 MM/HR (0-15)
[2020-07-06 11:47] LABS: Immunoglobulin E 760 kU/L (<OR=114)
== END 2020-07-05 11:05 | disposition home or self-care (01) ==
LOC: HO.LAB 11:04
PROVIDERS: PCP Family Medicine; Visit Provider Hospitalist
DX: U07.1 COVID-19 (principal); J41.8 Mixed simple and mucopurulent chronic bronchitis
CPT/HCPCS: 36415; 80048; 82785; 85025; 85652; 86769

== ENCOUNTER 2020-07-08 14:43 | Outpatient (REF) | payer MEDICAID, SELFPAY ==
[2020-07-08 15:22] LABS: COVID-19 Test Negative (Negative)
== END 2020-07-08 14:44 | disposition home or self-care (01) ==
LOC: HO.LAB 14:43
PROVIDERS: Visit Provider Internal Medicine
DX: Z20.822 Contact with and (suspected) exposure to COVID-19 (principal)
CPT/HCPCS: 36415; 87635; C9803

== ENCOUNTER 2020-08-20 09:01 | Day surgery (SDC) | payer MEDICAID, SELFPAY ==
[2020-08-13 16:01] VITALS: BMI 27.8
[2020-08-20] VITALS (7 sets, daily range): BP systolic 118–138; BP diastolic 78–88; PULSE 70–96; RESP 16–20; TEMP 36.6–37; O2SAT 94–97; BMI 28.8
[2020-08-20] MEDS: Lactated Ringers 1,000 ML 50 ML IVCONT (09:22)
[2020-08-20 10:00] LABS: Glucose, Whole Blood 152 mg/dL (60-115)
--- NOTE | 2020-08-20 10:00 | HO.ANESPROP2 ---
[facility] [place] Active Problems Active Problems: All Active Problems (Updated 06/17/20 @ 23:16 by Armaan Elizabeth MD) COVID-19 (Acute) Close exposure to COVID-19 virus (Acute) Tubular adenoma of colon (Acute) Irritable bowel syndrome (Acute) HTN (hypertension) (Acute) Asthma (Acute) COPD (chronic obstructive pulmonary disease) (Acute) Depression (Acute) Anxiety (Acute) GERD (gastroesophageal reflux disease) (Acute) Osteoporosis (Acute) Chronic idiopathic constipation (Acute) Nephrolithiasis (Acute) Abdominal bloating (Acute) Lump in the abdomen (Acute) Penile discharge (Acute) Pain with urination (Acute) Abscess (Acute) Chronic abdominal pain (Acute) Past Medical History Medical History Anxiety and depression Arthritis Asthma Asthma-COPD overlap syndrome Back pain Chronic abdominal pain COPD (chronic obstructive pulmonary disease) Elevated cholesterol GERD (gastroesophageal reflux disease) History of kidney stones HTN (hypertension) Irritable bowel syndrome Osteoporosis Tobacco dependence Tubular adenoma of colon Family History Family History Father No problems noted. Mother No problems noted. Son No problems noted. Daughter No problems noted. Surgical History Surgical History Carpal tunnel syndrome (~08/2014) H/O wrist surgery History of hydrocelectomy Hx of colonoscopy S/P carpal tunnel release S/P extracorporeal shock wave therapy Shoulder symptoms with history of shoulder arthroplasty Status post hip surgery Social History Social History Alcohol intake: current Alcohol intake frequency: does not drink Patient Tobacco Use Status: Current everyday Tobacco user Cigarette Packs Per Day: 0.5 Cigarettes Per Day: 10.0 Years Smoked: 18 Smoked in Last 30 Days: Yes Second Hand Smoke Exposure: No Use of substances other than those prescribed or required for medical reasons: No Are you DNR?: No Advance Directives: No Advance Directives Information Provided: Yes Meds Allergies Allergy/AdvReac Type Severity Reaction Status Date / Time ibuprofen [From Motrin] Allergy Rash Verified 07/01/20 15:21 Home Medications Medication Instructions Recorded Confirmed Last Taken Type Chantix 1 mg PO BID 12/16/19 06/17/20 Unknown History albuterol sulfate [ProAir HFA] 2 puff INHALATION Q6H PRN 12/16/19 06/17/20 Unknown History baclofen 20 mg PO TID 12/16/19 06/17/20 Unknown History bupropion HCl [Wellbutrin XL] 150 mg PO QAM 12/16/19 06/17/20 Unknown History cetirizine 10 mg PO DAILY 12/16/19 06/17/20 Unknown History cholecalciferol (vitamin D3) 50 mcg PO DAILY 12/16/19 06/17/20 Unknown History [Vitamin D3] famotidine [Pepcid] 20 mg PO DAILY 12/16/19 06/17/20 Unknown History ipratropium-albuterol 3 ml INHALATION Q4-6H PRN 12/16/19 06/17/20 Unknown History lisinopril 20 mg PO DAILY 12/16/19 06/17/20 Unknown History tamsulosin 0.4 mg PO BEDTIME 12/16/19 06/17/20 Unknown History tramadol 50 mg PO Q6H PRN 12/16/19 06/17/20 Unknown History zafirlukast [Accolate] 20 mg PO Q12H 12/16/19 06/17/20 12/23/19 07:00 History docusate sodium 100 mg capsule 100 mg PO DAILY 12/30/19 06/17/20 Unknown History acetaminophen [Arthritis Pain 1 tab PO Q8H PRN 06/04/20 06/17/20 Unknown History Relief (acetam)] amlodipine 1 tab PO DAILY 06/04/20 06/17/20 Unknown History atorvastatin 1 tab PO BEDTIME 06/04/20 06/17/20 Unknown History budesonide-formoterol [Symbicort] 2 puff PO BID 06/04/20 06/17/20 Unknown History calcium carbonate-vitamin D3 1 tab PO BID 06/04/20 06/17/20 Unknown History gabapentin 2 cap PO TID 06/04/20 06/17/20 Unknown History lidocaine 1 patch TOPICAL Q12H 06/04/20 06/17/20 Unknown History mirtazapine mg PO 06/04/20 06/17/20 Unknown History omeprazole 1 cap PO DAILY 06/04/20 06/17/20 Unknown History Exam Exam Date and Time: August 20, 2020 1000 Height,Weight and Vital Signs: Height 5 ft 8 in Weight 86.183 kg Last Vital Signs Temp 98.6 F 08/20/20 09:49 Pulse 96 08/20/20 09:49 Resp 16 08/20/20 09:49 BP 138/88 08/20/20 09:49 Pulse Ox 94 08/20/20 09:49 Pertinent Lab Results Pertinent Lab Results: Laboratory Tests 08/20/20 09:56 POC Glucose 152 H Airway Mallampati Class: III TM Dist: >3cm Neck ROM: Full Heart: RRR Lungs: scattered wheezes throughout Assessment and Plan Assessment Anesthesia Assessment: Anesthesia Plan Discussed and Chart Reviewed Final Anesthetic Review NPO: Yes ASA Class: III Final Preanesthetic Review: Meds/Allgs Chart Reviewed, Consent Obtained/Reviewed and Anes Risks/Benef Reviewed Patient Risk: Intermediate Procedure Risk: Low Anesthetic Plan Anesthetic Plan: MAC: Disposition: Standard PACU
--- NOTE | 2020-08-20 10:01 | P.OP_ITS ---
Operative Note Operative Note Date of Service: 08/20/20 Narrative: Pre-op diagnosis: Colon cancer screening, history of multiple colon polyps Post-op diagnosis: other (Colon polyps, diverticulosis, hemorrhoids) Procedure: COLONOSCOPY TILL CECUM WITH THE BIOPSY AND SNARE POLYPECTOMY Consent: Indications for the procedure and potential complications of bleeding, perforation, reaction to medications and missed diagnosis were discussed with the patient and informed consent was obtained. Instrument: Olympus CF H 190 L variable stiffness adult colonoscope Monitoring: Vital signs and clinical assessment, intermittent blood pressure monitoring, continuous EKG monitoring, Pulse oximetry and Carbon Dioxide monitoring were done throughout the procedure. Colon withdrawl time was 37 minutes. Procedure: The patient was placed in the left lateral decubitis position and pre-procedure medications were administered. After a digital rectal examination of the ano-rectum, the video colonoscope was inserted into the rectum and advanced through the colon to the cecum. The colonoscope was slowly withdrawn in a retrograde panoramic fashion and the colon mucosa was carefully examined including a retroflexed view of the rectum. Findings and interventions are described below. Procedure Difficulty: Without difficulty Findings: Terminal Ileum: Not evaluated Cecum: Partially evaluated due to poor prep with semisolid and liquid stools Ascending Colon: Partially evaluated due to poor prep with semisolid and liquid stools Transverse Colon: Fair after copious irrigation Descending Colon: A 4-5 mm sessile polyp removed with a cold biopsy. 10-12 mm sessile polyp removed with hot snare Sigmoid Colon: A 7-8 mm sessile polyp removed with a cold snare. A 1.5 to 2 cm sessile polyp removed with hot snare. Two 1.5 to 2 cms sessile polyps removed with a hot snare. Moderate diverticulosis Rectum: Normal Ano-rectum: Moderate internal hemorrhoids Colon preparation: Fair in the transverse and left colon after copious irrigation and fair to poor in the right colon. Impression and Post Procedure Diagnosis: Colonoscopy Findings: Six medium to large sized polyps removed Moderate diverticulosis seen in the sigmoid colon Moderate hemorrhoids on retroflexed exam. Plan: Await pathology results Patient has an appointment on 10/12/20 in the GI Clinic with Gauri Garcia NP. Repeat Colonoscopy interval based on path results - in 6-12 months with 2 day prep. Above findings were reviewed with the patient and colon polyps handout was given in the discharge area BIOPSIES SHOWED: A. Colon, descending, polypectomies: - Tubular adenoma; no high grade dysplasia or carcinoma seen - Hyperplastic mucosal polyp. B. Colon, sigmoid, polypectomies: Tubular adenomas (two); no high grade dyspla chris or carcinoma seen. C. Colon, sigmoid at 30 cm, polypectomies: Tubular and tubulovillous adenomas (fragments of); no high grade dysplasia or carcinoma seen. Surgeon: Matt Michael MD Anesthesia: MAC (Dr Waite) Was an Forest Fire Prevention Manager used for this Procedure?: Yes Forest Fire Prevention Manager: Henna Vickers Estimated blood loss (mL): 0 Pathology: other (A: DESCENDING COLON POLYPS B: SIGMOID COLON POLYPS C: SIGMOID COLON POLYPS AT 30 CM) Condition: stable Disposition: PACU
--- NOTE | 2020-08-20 10:01 | MHC.SHP ---
Pre-Procedural Eval Section A The patient is an INPATIENT: No The History & Physical has been completed within 30 days and I have reviewed it.: No Section B Chief Complaint: tubular adenoma of colon Details of Present Illness: Colon cancer screening, history of colon polyps, IBS with constipation Relevant Social History: Tobacco Use Present Medications: see Short Stay Collaborative assessment Medical History: Significant History (Hypertension, asthma, COPD) History of Previous Operations: Relevant previous surgery/procedure and date(s) (Carpal tunnel syndrome (~08/2014) H/O wrist surgery History of hydrocelectomy Hx of colonoscopy S/P carpal tunnel release S/P extracorporeal shock wave therapy Shoulder symptoms with history of shoulder arthroplasty Status post hip surgery) Allergies: Allergies Allergy/AdvReac Type Severity Reaction Status Date / Time ibuprofen [From Motrin] Allergy Rash Verified 07/01/20 15:21 Review of Systems Sugical H&P ROS: Negative: Constitution, Cardiovascular and Gastrointestinal and Yes, Specify: Respiratory (cough and wheezing due to COPD) Exam Surgical H&P Exam: Normal: Heart, Normal: Extremities and Normal: Abdomen and Significant Findings: Lungs (scattered wheezing) Plan Diagnosis/Plan: Unchanged I have reviewed the history and physical and performed a pertinent physical examination on my patient. No changes have occurred unless specified.
== END 2020-08-20 12:53 | disposition home or self-care (01) ==
PROVIDERS: PCP Family Medicine; Visit Provider Internal Medicine Gastroenterology
PROC: 0DJD8ZZ Inspection of Lower Intestinal Tract, Via Natural or Artificial Opening Endoscopic (ICD-10-PCS; CPT 45378; principal; 2020-08-20 09:40)
DX: Z12.11 Encounter for screening for malignant neoplasm of colon (principal); Z86.010 Personal history of colon polyps; D12.4 Benign neoplasm of descending colon; D12.5 Benign neoplasm of sigmoid colon; K57.30 Diverticulosis of large intestine without perforation or abscess without bleeding; K64.8 Other hemorrhoids; K21.9 Gastro-esophageal reflux disease without esophagitis; J44.9 Chronic obstructive pulmonary disease, unspecified; I10 Essential (primary) hypertension; K58.9 Irritable bowel syndrome, unspecified; M81.0 Age-related osteoporosis without current pathological fracture; Z79.899 Other long term (current) drug therapy; F17.210 Nicotine dependence, cigarettes, uncomplicated
CPT/HCPCS: 45385; 45380; 82947; 88305; J2405; J2765

== ENCOUNTER → 2020-10-12 09:56 | Outpatient (BNVA) | payer MEDICAID, SELFPAY | PROVIDERS: PCP Family Medicine; Visit Provider Nurse Practitioner ==

== ENCOUNTER 2020-11-19 03:14 | Emergency (ER) | payer MEDICAID, SELFPAY ==
--- NOTE | ~2020-11-19 | XR_ITS ---
EXAMINATION: XR CHEST CLINICAL INFORMATION: Shortness of breath COMPARISON: Chest x-ray 09/16/2019 TECHNIQUE: Frontal portable view of the chest was obtained. 3:52 AM FINDINGS: No significant abnormality is noted involving the heart, lungs, mediastinum, bony thorax or soft tissues. XR/XR chest 1V IMPRESSION: Unremarkable examination.
[2020-11-19 03:33] VITALS: BP 137/85; PULSE 102; RESP 26; TEMP 36.8; O2SAT 95; BMI 27.3
[2020-11-19] MEDS: Albuterol/Iprat 2.5/0.5MG 3 ML AMPUL.NEB INHALE (03:45)
[2020-11-19 03:48] VITALS: PULSE 93; O2SAT 95
--- NOTE | 2020-11-19 04:14 | ED_ITS ---
HPI - SOB/Dyspnea General Chief Complaint: Dyspnea Stated Complaint: asthma, SoB Time Seen by Provider: 11/19/20 04:14 Source: patient Mode of arrival: ambulatory Limitations: no limitations History of Present Illness HPI Narrative: 50 years old male came in for evaluation of wheezing and shortness of breath. 50-year-old male with long history of asthma, patient stated that he ran out of his inhaler for the past 5 days. Patient declined any runny nose or sneezing or coughing. Patient did not receive vaccination for COVID patient was advised to receive the vaccination, however patient has no sick contact, no fever, no chills. Related Data Home Medications Medication Instructions Recorded Confirmed albuterol sulfate 90 mcg/actuation 2 puff INHALATION Q6H PRN 12/16/19 06/17/20 aerosol inhaler (ProAir HFA) baclofen 20 mg tablet 20 mg PO TID 12/16/19 06/17/20 bupropion HCl 150 mg 24 hr tablet, 150 mg PO QAM 12/16/19 06/17/20 extended release (Wellbutrin XL) cetirizine 10 mg tablet 10 mg PO DAILY 12/16/19 06/17/20 cholecalciferol (vitamin D3) 50 50 mcg PO DAILY 12/16/19 06/17/20 mcg (2,000 unit) tablet (Vitamin D3) famotidine 20 mg tablet (Pepcid) 20 mg PO DAILY 12/16/19 06/17/20 ipratropium 0.5 mg-albuterol 3 mg 3 ml INHALATION Q4-6H PRN 12/16/19 06/17/20 (2.5 mg base)/3 mL nebulization soln lisinopril 20 mg tablet 20 mg PO DAILY 12/16/19 06/17/20 tamsulosin 0.4 mg capsule 0.4 mg PO BEDTIME 12/16/19 06/17/20 tramadol 50 mg tablet 50 mg PO Q6H PRN 12/16/19 06/17/20 varenicline 1 mg tablet (Chantix) 1 mg PO BID 12/16/19 06/17/20 docusate sodium 100 mg capsule 100 mg PO DAILY 12/30/19 06/17/20 (Colace) acetaminophen 650 mg 1 tab PO Q8H PRN 06/04/20 06/17/20 tablet,extended release (Arthritis Pain Relief (acetaminophen) ER) amlodipine 5 mg tablet 1 tab PO DAILY 06/04/20 06/17/20 atorvastatin 10 mg tablet 1 tab PO BEDTIME 06/04/20 06/17/20 budesonide-formoterol HFA 160 2 puff PO BID 06/04/20 06/17/20 mcg-4.5 mcg/actuation aerosol inhaler (Symbicort) calcium carbonate-vitamin D3 250 1 tab PO BID 06/04/20 06/17/20 mg-125 unit tablet gabapentin 300 mg capsule 2 cap PO TID 06/04/20 06/17/20 lidocaine 5 % topical patch 1 patch TOPICAL Q12H 06/04/20 06/17/20 mirtazapine 30 mg tablet mg PO 06/04/20 06/17/20 omeprazole 20 mg capsule,delayed 1 cap PO DAILY 06/04/20 06/17/20 release Previous Rx's Medication Instructions Recorded fluticasone fur. 100 mcg-umeclid 1 inh INHALATION DAILY 30 Days #60 12/19/19 62.5 mcg-vilant 25 mcg ea inhalat.powder (Trelegy Ellipta) ipratropium 20 mcg-albuterol 100 2 puff INHALATION QID 30 Days #8 g 12/19/19 mcg/actuation mist for inhalation (Combivent Respimat) nystatin 500,000 unit tablet 500,000 unit PO TID 10 Days #30 tab 12/19/19 simethicone 180 mg capsule 180 mg PO QID 30 Days #120 cap 12/30/19 roflumilast 250 mcg tablet 250 mcg PO DAILY #28 tab 03/08/20 (Daliresp) xeqdae-tzxeycpu-rmyelnk 1 cap PO QID #120 cap 03/09/20 24,000-76,000-120,000 unit capsule,delayed rel (Creon) linaclotide 290 mcg capsule 290 mcg PO DAILY 30 Days #30 cap 04/12/20 (Linzess) nystatin 100,000 unit/gram topical 1 appl TOPICAL TID #30 g 04/12/20 ointment sulfamethoxazole 800 1 tab PO Q12H #14 tab 04/12/20 mg-trimethoprim 160 mg tablet (Bactrim DS) acetaminophen 500 mg tablet 1,000 mg PO QID PRN #14 tab 06/13/20 (Tylenol Extra Strength) albuterol sulfate 0.63 mg/3 mL 0.63 mg INHALATION QID PRN #75 ml 06/13/20 solution for nebulization azithromycin 250 mg tablet See Rx Instructions .ROUTE 06/13/20 .COMPLEX #6 tab dexamethasone 6 mg tablet 6 mg PO DAILY 10 Days #10 tab 06/17/20 (Decadron) doxycycline hyclate 100 mg capsule 100 mg PO BID 10 Days #20 cap 06/17/20 melatonin 5 mg tablet 5 mg PO BEDTIME 30 Days #30 tab 06/17/20 multivitamin 1 tab PO DAILY 30 Days #30 tab 06/17/20 prednisone 10 mg tablet 10 mg PO DAILY 18 Days #63 tab 08/04/20 zafirlukast 20 mg tablet 20 mg PO BID #60 tab 10/28/20 prednisone 10 mg tablet 10 mg PO DAILY #63 tab 11/15/20 albuterol sulfate 2.5 mg INHALATION Q4-6H PRN #75 ml 11/19/20 albuterol sulfate 90 mcg/actuation 1 inh INHALATION QID PRN #8.5 g 11/19/20 aerosol inhaler (ProAir HFA) Allergies Allergy/AdvReac Type Severity Reaction Status Date / Time ibuprofen [From Motrin] Allergy Rash Verified 10/12/20 09:57 Review of Systems Review of Systems: All other systems are reviewed and are negative Constitutional: Reports as per HPI and Reports no additional constitutional complaints Eyes: Reports as per HPI and Reports no additional eye complaints Reports system reviewed and no additional complaints, except as documented Cardiovascular: Reports as per HPI and Reports no additional cardiovascular complaints Respiratory: Reports as per HPI and Reports no additional respiratory complaints Gastrointestinal: Reports as per HPI and Reports no additional gastrointestinal complaints Genitourinary: Reports no additional female genitourinary complaints Musculoskeletal: Reports no additional musculoskeletal complaints Skin/Breast: Reports system reviewed and no additional complaints, except as docu Psychiatric: Reports no additional psychiatric complaints Endocrine: Reports no additional endocrine complaints Hematologic/Lymphatic: Reports no additional hematologic/lymphatic complaints Allergic/Immunologic: Reports no additional allergic/immunologic complaints Reports system reviewed and no additional complaints, except as documented and Reports Abnormal speech present PMFSH Past Medical History Medical History Anxiety and depression Arthritis Asthma Asthma-COPD overlap syndrome Back pain Chronic abdominal pain COPD (chronic obstructive pulmonary disease) Elevated cholesterol GERD (gastroesophageal reflux disease) History of kidney stones HTN (hypertension) Irritable bowel syndrome Osteoporosis Tobacco dependence Tubular adenoma of colon Surgical History Carpal tunnel syndrome (~08/2014) H/O wrist surgery History of hydrocelectomy Hx of colonoscopy S/P carpal tunnel release S/P extracorporeal shock wave therapy Shoulder symptoms with history of shoulder arthroplasty Status post hip surgery Family History Family History Father No problems noted. Mother No problems noted. Son No problems noted. Daughter No problems noted. Social History Social History Alcohol intake: current Alcohol intake frequency: does not drink Patient Tobacco Use Status: Current everyday Tobacco user Cigarette Packs Per Day: 0.5 Cigarettes Per Day: 10.0 Years Smoked: 18 Second Hand Smoke Exposure: No Advance Directives: No Advance Directives Information Provided: Yes Physical Exam Vital Signs: Vital Signs: Last Vital Signs Temp 98.3 F 11/19/20 03:33 Pulse 93 11/19/20 03:48 Resp 26 H 11/19/20 03:33 BP 137/85 11/19/20 03:33 Pulse Ox 95 11/19/20 03:33 Body Mass Index 27.3 Vital signs have been reviewed as appeared to be correct. Blood pressure normal. Heart rate normal. Respiration rate tachypneic.Temperature normal. Oxygen saturation normal. Appearance: Alert. Oriented X3. No acute distress. Head: Normal external exam. Normocephalic. Atraumatic. No Mercer signs noted. No raccoon eyes noted Eyes: PERRLA. EOMI. Conjunctiva and sclera normal. Eyelids normal. ENT: TM's Normal. Pharynx normal. Uvula midline. Moist mucous membranes. No trismus noted. No drooling noted. No muffled voice noted. Neck: Normal inspection. Neck supple. FROM. No adenopathy. Thyroid Normal. No meningeal signs. No neck mass noted. CVS: Normal heart rate and rhythm. Heart sound normal. No murmurs noted. Pulses normal throughout. Respiratory: No respiratory distress. Painless inspiration. Breath sounds normal. Diffuse expiratory wheezing with prolonged expiration. No accessory muscle usage noted or decreased air movement noted. Abdomen: Soft and nontender. Bowel sounds normal in all 4 quadrants. No distention noted. No organomegaly noted. No visible injury noted. Back: No CVA tenderness. Full range of motion noted. Skin: Skin warm and dry. Normal skin color. Normal skin turgor. No rashes/lesions/lacerations noted. Extremities: No lower extremity edema. Extremities exhibit normal range of motion. Extremities nontender. Neuro: Oriented X 3. Cranial nerve exam: II-XII are grossly intact No motor deficit. No sensory deficit. Reflexes normal. Course Course Course Narrative: Assessment and plan. Acute asthma exacerbation due to running out of his inhaler. Patient received albuterol in the emergency department and now he feels better. Will discharge the patient with prescription of albuterol. MDM - SOB/Dyspnea Imaging Data Chest x-ray: Radiologist's impression: No acute pathology. Discharge Plan Discharge Clinical Impression: Asthma Qualifiers: Asthma severity: mild Asthma persistence: intermittent Asthma complication type: with acute exacerbation Qualified Code(s): J45.21 - Mild intermittent asthma with (acute) exacerbation Patient Disposition: Home, Self-Care Instructions: Bronchospasm (ED) Additional Instructions: Please consider taking COVID vaccination. Prescriptions: New albuterol sulfate 2.5 mg /3 mL (0.083 %) solution for nebulization 2.5 mg inhalation Q4-6H PRN (Reason: shortness of breath or wheezing) Qty: 75 RF: 0 albuterol sulfate [ProAir HFA] 90 mcg/actuation HFA aerosol inhaler 1 inh inhalation QID PRN (Reason: shortness of breath or wheezing) Qty: 8.5 RF: 0 No Action roflumilast [Daliresp] 250 mcg tablet 250 mcg PO DAILY Qty: 28 RF: 0 seuxly-aouxnwog-mqqjszi [Creon] 24,000-76,000 -120,000 unit capsule,delayed release(DR/EC) 1 cap PO QID Qty: 120 RF: 2 prednisone 10 mg tablet 10 mg PO DAILY 18 Days Qty: 63 RF: 0 zafirlukast 20 mg tablet 20 mg PO BID Qty: 60 RF: 10 prednisone 10 mg tablet 10 mg PO DAILY Qty: 63 RF: 2 albuterol sulfate 0.63 mg/3 mL solution for nebulization 0.63 mg inhalation QID PRN (Reason: shortness of breath or wheezing) Qty: 75 RF: 0 azithromycin 250 mg tablet See Rx Instructions .ROUTE .COMPLEX Qty: 6 RF: 0 acetaminophen [Tylenol Extra Strength] 500 mg tablet 1,000 mg PO QID PRN (Reason: fever or pain) Qty: 14 RF: 0 ipratropium-albuterol 0.5 mg-3 mg(2.5 mg base)/3 mL Solution For Nebulization 3 ml INHALATION Q4-6H PRN (Reason: Shortness Of Breath) RF: 0 cetirizine 10 mg Tablet 10 mg PO DAILY RF: 0 lisinopril 20 mg Tablet 20 mg PO DAILY RF: 0 tramadol 50 mg Tablet 50 mg PO Q6H PRN (Reason: Pain) RF: 0 baclofen 20 mg Tablet 20 mg PO TID RF: 0 famotidine [Pepcid] 20 mg Tablet 20 mg PO DAILY RF: 0 tamsulosin 0.4 mg Capsule 0.4 mg PO BEDTIME RF: 0 albuterol sulfate [ProAir HFA] 90 mcg/actuation Hfa Aerosol Inhaler 2 puff INHALATION Q6H PRN (Reason: Shortness Of Breath) RF: 0 bupropion HCl [Wellbutrin XL] 150 mg Tablet Extended Release 24 Hr 150 mg PO QAM RF: 0 Chantix 1 mg Tablet 1 mg PO BID RF: 0 cholecalciferol (vitamin D3) [Vitamin D3] 50 mcg (2,000 unit) Tablet 50 mcg PO DAILY RF: 0 atorvastatin 10 mg tablet 1 tab PO BEDTIME RF: 0 amlodipine 5 mg tablet 1 tab PO DAILY RF: 0 acetaminophen [Arthritis Pain Relief (acetam)] 650 mg tablet extended release 1 tab PO Q8H PRN (Reason: Pain) RF: 0 mirtazapine 30 mg tablet PO RF: 0 lidocaine 5 % adhesive patch,medicated 1 patch topical Q12H RF: 0 gabapentin 300 mg capsule 2 cap PO TID RF: 0 omeprazole 20 mg capsule,delayed release(DR/EC) 1 cap PO DAILY RF: 0 calcium carbonate-vitamin D3 250-125 mg-unit tablet 1 tab PO BID RF: 0 budesonide-formoterol [Symbicort] 160-4.5 mcg/actuation HFA aerosol inhaler 2 puff PO BID RF: 0 docusate sodium [Colace] 100 mg capsule 100 mg PO DAILY RF: 0 simethicone 180 mg capsule 180 mg PO QID 30 Days Qty: 120 RF: 3 Linzess 290 mcg capsule 290 mcg PO DAILY 30 Days Qty: 30 RF: 6 sulfamethoxazole-trimethoprim [Bactrim DS] 800-160 mg tablet 1 tab PO Q12H Qty: 14 RF: 0 nystatin 100,000 unit/gram ointment 1 appl topical TID Qty: 30 RF: 3 dexamethasone [Decadron] 6 mg tablet 6 mg PO DAILY 10 Days Qty: 10 RF: 0 doxycycline hyclate 100 mg capsule 100 mg PO BID 10 Days Qty: 20 RF: 0 multivitamin Tablet 1 tab PO DAILY 30 Days Qty: 30 RF: 11 melatonin 5 mg tablet 5 mg PO BEDTIME 30 Days Qty: 30 RF: 5 Trelegy Ellipta 100-62.5-25 mcg blister with device 1 inh inhalation DAILY 30 Days Qty: 60 RF: 11 Combivent Respimat 20-100 mcg/actuation mist 2 puff inhalation QID 30 Days Qty: 8 RF: 11 nystatin 500,000 unit tablet 500,000 unit PO TID 10 Days Qty: 30 RF: 3 Referrals: [facility] [Primary Care Provider] - 2 days
== END 2020-11-19 05:37 | disposition home or self-care (01) ==
PROVIDERS: Emergency Provider Emergency Medicine
DX: J45.21 Mild intermittent asthma with (acute) exacerbation (principal); F17.210 Nicotine dependence, cigarettes, uncomplicated; Z79.899 Other long term (current) drug therapy
CPT/HCPCS: 71045; 94640; 99284

== ENCOUNTER → 2020-12-24 13:47 | Outpatient (BNVA) | payer MEDICAID, SELFPAY | PROVIDERS: Visit Provider Nurse Practitioner | DX: K58.9 Irritable bowel syndrome, unspecified (principal); K59.04 Chronic idiopathic constipation; K21.9 Gastro-esophageal reflux disease without esophagitis; D12.6 Benign neoplasm of colon, unspecified | CPT/HCPCS: 99212 ==

== ENCOUNTER 2021-01-07 07:21 | Outpatient (REF) | payer MEDICAID, SELFPAY | END 2021-01-07 07:22 | disposition home or self-care (01) | LOC: HO.HOSX 07:21 | PROVIDERS: Visit Provider Physician Assistant | DX: Z13.89 Encounter for screening for other disorder (principal) ==

== ENCOUNTER 2021-03-31 10:13 | Outpatient (REF) | payer MEDICAID, SELFPAY ==
[2021-03-31 12:02] LABS: COVID-19 Test Positive (Negative)
== END 2021-03-31 10:14 | disposition home or self-care (01) ==
LOC: HO.LAB 10:13
PROVIDERS: Visit Provider Internal Medicine
DX: Z20.822 Contact with and (suspected) exposure to COVID-19 (principal)
CPT/HCPCS: 87635; C9803

== ENCOUNTER 2021-04-08 13:30 | Outpatient (REF) | payer MEDICAID, SELFPAY ==
[2021-04-08 13:51] LABS: Binax Internal Control QC Valid; Binax Now Covid-19 Ag Negative (Negative)
== END 2021-04-08 13:31 | disposition home or self-care (01) ==
LOC: HO.LAB 13:30
PROVIDERS: Visit Provider Internal Medicine
DX: Z20.822 Contact with and (suspected) exposure to COVID-19 (principal)
CPT/HCPCS: C9803

== ENCOUNTER → 2021-04-26 15:32 | Outpatient (BNVA) | payer MEDICAID, SELFPAY | PROVIDERS: PCP Family Medicine; Visit Provider Hospitalist ==

== ENCOUNTER 2021-05-28 01:01 | Inpatient (IN) | payer MEDICAID, SELFPAY ==
[2021-05-28] VITALS (9 sets, daily range): BP systolic 94–147; BP diastolic 54–95; PULSE 74–108; RESP 16–20; TEMP 36.6–36.7; O2SAT 93–98; BMI 27.3
--- NOTE | ~2021-05-28 | CT_ITS ---
EXAMINATION: CT RIGHT ELBOW WITHOUT CONTRAST CLINICAL INFORMATION: Right elbow pain COMPARISON: None TECHNIQUE: 85 MLO Omnipaque 350 intravenous contrast was utilized. Multidetector helical imaging was performed through the right elbow. Coronal and sagittal reformatted images were created. DOSE LOWERING TECHNIQUES: This CT examination was performed using dose optimization techniques as appropriate, variously including the following: - Automated exposure control - Adjustment of mA and/or kV according to patient size (this includes techniques or standardized protocols for targeted exams were dose is matched to indication/reason for exam; i.e. extremities or head) - Use of iterative reconstruction technique DLP: 121 mGy-cm FINDINGS: Osseous alignment is anatomic. No acute fracture is seen. There is subcutaneous edema along the dorsum of the elbow and proximal forearm. Focal fluid collection is suspected in the deep dorsal subcutaneous tissues overlying the elbow and olecranon, measuring approximately 3.3 x 0.5 x 4.4 cm. Included vasculature appears patent. No soft tissue gas is seen. No significant elbow effusion identified. CT/CT elbow RT w con IMPRESSION: Subcutaneous edema along the dorsum of the elbow and proximal forearm. Fluid collection suspected in the associated subcutaneous tissues measuring approximately 3.3 x 0.5 x 4.4 cm, concerning for developing abscess in the proper clinical setting.
--- NOTE | 2021-05-28 01:38 | ED_ITS ---
HPI - Extremity Problem General Chief complaint: Extremity Problem Stated complaint: left arm pain/swollen Time Seen by Provider: 05/28/21 01:11 Source: patient Mode of arrival: ambulatory Limitations: no limitations History of Present Illness HPI Narrative: Patient comes to the emergency room complaining of right-sided elbow pain. Three days ago, patient started having pain in the elbow, erythema. Tonight when patient was sleeping, patient woke up with pain, increased swelling. Patient denies any trauma, no IV drug use. Patient denies fever chills. Related Data Home Medications Medication Instructions Recorded Confirmed baclofen 20 mg tablet 20 mg PO TID 12/16/19 06/17/20 bupropion HCl 150 mg 24 hr tablet, 150 mg PO QAM 12/16/19 06/17/20 extended release (Wellbutrin XL) cetirizine 10 mg tablet 10 mg PO DAILY 12/16/19 06/17/20 famotidine 20 mg tablet (Pepcid) 20 mg PO DAILY 12/16/19 06/17/20 ipratropium 0.5 mg-albuterol 3 mg 3 ml INHALATION Q4-6H PRN 12/16/19 06/17/20 (2.5 mg base)/3 mL nebulization soln lisinopril 20 mg tablet 20 mg PO DAILY 12/16/19 06/17/20 tamsulosin 0.4 mg capsule 0.4 mg PO BEDTIME 12/16/19 06/17/20 tramadol 50 mg tablet 50 mg PO Q6H PRN 12/16/19 06/17/20 docusate sodium 100 mg capsule 100 mg PO DAILY 12/30/19 06/17/20 (Colace) acetaminophen 650 mg 1 tab PO Q8H PRN 06/04/20 06/17/20 tablet,extended release (Arthritis Pain Relief (acetaminophen) ER) amlodipine 5 mg tablet 1 tab PO DAILY 06/04/20 06/17/20 atorvastatin 10 mg tablet 1 tab PO BEDTIME 06/04/20 06/17/20 calcium carbonate 250 mg-vitamin 1 tab PO BID 06/04/20 06/17/20 D3 3.125 mcg (125 unit) tablet gabapentin 300 mg capsule 2 cap PO TID 06/04/20 06/17/20 lidocaine 5 % topical patch 1 patch TOPICAL Q12H 06/04/20 06/17/20 mirtazapine 30 mg tablet mg PO 06/04/20 06/17/20 omeprazole 20 mg capsule,delayed 1 cap PO DAILY 06/04/20 06/17/20 release Previous Rx's Medication Instructions Recorded fluticasone fur. 100 mcg-umeclid 1 inh INHALATION DAILY 30 Days #60 12/19/19 62.5 mcg-vilant 25 mcg ea inhalat.powder (Trelegy Ellipta) nystatin 500,000 unit tablet 500,000 unit PO TID 10 Days #30 tab 12/19/19 simethicone 180 mg capsule 180 mg PO QID 30 Days #120 cap 12/30/19 roflumilast 250 mcg tablet 250 mcg PO DAILY #28 tab 03/08/20 (Daliresp) zssilm-mcyucvmb-kylomld 1 cap PO QID #120 cap 03/09/20 24,000-76,000-120,000 unit capsule,delayed rel (Creon) linaclotide 290 mcg capsule 290 mcg PO DAILY 30 Days #30 cap 04/12/20 (Linzess) nystatin 100,000 unit/gram topical 1 appl TOPICAL TID #30 g 04/12/20 ointment acetaminophen 500 mg tablet 1,000 mg PO QID PRN #14 tab 06/13/20 (Tylenol Extra Strength) albuterol sulfate 0.63 mg/3 mL 0.63 mg (3 mL) INHALATION QID PRN 06/13/20 solution for nebulization #75 ml doxycycline hyclate 100 mg capsule 100 mg PO BID 10 Days #20 cap 06/17/20 melatonin 5 mg tablet 5 mg PO BEDTIME 30 Days #30 tab 06/17/20 multivitamin 1 tab PO DAILY 30 Days #30 tab 06/17/20 prednisone 10 mg tablet 10 mg PO DAILY 18 Days #63 tab 08/04/20 zafirlukast 20 mg tablet 20 mg PO BID #60 tab 10/28/20 albuterol sulfate 2.5 mg (3 mL) INHALATION Q4-6H PRN 11/19/20 #75 ml albuterol sulfate 90 mcg/actuation 1 inh INHALATION QID PRN #8.5 g 11/19/20 aerosol inhaler (ProAir HFA) albuterol sulfate 90 mcg/actuation 2 puff INHALATION Q6H PRN #8.5 g 04/26/21 aerosol inhaler (ProAir HFA) budesonide-formoterol HFA 160 2 puff PO BID #10.2 g 04/26/21 mcg-4.5 mcg/actuation aerosol inhaler (Symbicort) ipratropium 20 mcg-albuterol 100 1 puff INHALATION QID 30 Days #4 g 04/26/21 mcg/actuation mist for inhalation (Combivent Respimat) prednisone 10 mg tablet 20 mg PO DAILY 30 Days #60 tab 04/26/21 roflumilast 500 mcg tablet 500 mcg PO DAILY 30 Days #30 tab 04/26/21 (Daliresp) tiotropium bromide 2.5 2 puff INHALATION DAILY 30 Days #1 04/26/21 mcg/actuation mist for inhalation ea (Spiriva Respimat) Allergies Allergy/AdvReac Type Severity Reaction Status Date / Time ibuprofen [From Motrin] Allergy Rash Verified 05/28/21 01:12 Review of Systems Review of Systems: Constitutional : No Weight loss, No Fever, No Chills, No Night Sweats, No Fatigue, No Malaise ENT/Mouth : No Hearing loss, No Ear Pain, No Nasal Congestion, No Sinus Pain, No Hoarseness, No sore throat, No Rhinorrhea, No Swallowing Difficulty Eyes: No Eye Pain, No Swelling, No Redness, No Foreign Body, No Discharge, No Vision Changes Cardiovascular : No Chest Pain, No SOB, No Dyspnea on Exertion, No Orthopnea, No Edema, No Palpitations Respiratory : No Cough, No Sputum, No Wheezing, No Smoke Exposure, No Dyspnea Gastrointestinal : No Nausea, No Vomiting, No Diarrhea, No Constipation, No abdominal Pain, No Hematochezia, No Melena Genitourinary : no irregular bleeding, No Dysuria, No Urinary Frequency, No Hematuria, No Urinary Incontinence, No Urgency, No Flank Pain, No Urinary Flow Changes, No Hesitancy Musculoskeletal : Complaining of right elbow pain, swelling, erythema Skin : No Skin Lesions, No rash Neuro : No Weakness, No Numbness, No Paresthesias, No Loss of Consciousness, No Dizziness, No Headache Psych : No Anxiety/Panic, No Depression, No SI/HI/AH/VH, No Social Issues, Heme/Lymph: No Bruising, No Bleeding,No Lymphadenopathy Endocrine : No Polyuria, No Polydipsia, No Temperature Intolerance PMFSH Past Medical History Medical History Anxiety and depression Arthritis Asthma Asthma-COPD overlap syndrome Back pain Chronic abdominal pain COPD (chronic obstructive pulmonary disease) Elevated cholesterol GERD (gastroesophageal reflux disease) History of kidney stones HTN (hypertension) Irritable bowel syndrome Osteoporosis Tobacco dependence Tubular adenoma of colon Surgical History Carpal tunnel syndrome (~08/2014) H/O wrist surgery History of hydrocelectomy Hx of colonoscopy S/P carpal tunnel release S/P extracorporeal shock wave therapy Shoulder symptoms with history of shoulder arthroplasty Status post hip surgery Family History Family History Father No problems noted. Mother No problems noted. Son No problems noted. Daughter No problems noted. Social History Social History Alcohol intake: current Alcohol intake frequency: does not drink Patient Tobacco Use Status: Current everyday Tobacco user Cigarette Packs Per Day: 0.5 Cigarettes Per Day: 10.0 Years Smoked: 18 Second Hand Smoke Exposure: No Advance Directives: No Advance Directives Information Provided: Yes Physical Exam Vital Signs: Vital Signs: Last Vital Signs Temp 97.8 F 05/28/21 01:08 Pulse 95 05/28/21 03:24 Resp 18 05/28/21 03:24 BP 144/85 H 05/28/21 03:24 Pulse Ox 98 05/28/21 03:24 BMI result Body Mass Index 27.3 Const: Other: Appearance: Alert. Oriented X3. No acute distress. Eyes: Pupils equal, round and reactive to light. ENT: Pharynx normal. Neck: Normal inspection. Neck supple. No lymph nodes noted. No crepitus CVS: Normal heart rate and rhythm. Pulses normal. Normal S1 and S2 Respiratory: No respiratory distress. Breath sounds normal. No Wheezing. No rales Abdomen: Soft and nontender. No rigidity. No distention. good BS x4 Skin: Skin warm and dry. Normal skin color. Normal skin turgor. Extremities: No lower extremity edema. right elbow is swollen, tender to palpation, erythematous, no palpable effusion noted. Erythema extends down to the wrist. on bedside ultrasound, the patient has cobblestone pattern extending around the right elbow. No visualized abscess that could be easily drained at bedside Neuro: Oriented X 3. No motor deficit. No sensory deficit. Moving all extermities. No slurred speech. CN 2 through 12 grossly intact Course Course Course Narrative: patient has no fever, blood pressure normal. All the labs pending. Lactic acid is pending at this time, 03:21, patient's CT scan is suspicious fo r an abscess in the elbow on the right side. Sepsis not suspected. Patient is treated with IV fluids, vanco and Zosyn with bedside ultrasound, I could not visualize an abscess that could be easily drained at bedside. As mentioned above, patient is on IV antibiotics. I discussed the patient with Dr. Krishna [facility] - Extremity (Nontraumatic) Lab Data Result diagrams: 05/28/21 01:42 05/28/21 01:42 Labs: Lab Results 05/28/21 05/28/21 05/28/21 Range/Units 01:42 01:42 01:42 WBC 18.7 H (4.8-10.8) X10*3/uL RBC 4.51 L (4.60-5.80) X10*6/uL Hgb 13.9 L (14.0-18.0) g/dl Hct 41.8 L (42.0-52.0) % MCV 92.7 (80.0-98.0) fL MCH 30.8 (27.0-33.0) pg MCHC 33.3 (31.0-36.0) g/dl RDW 13.4 (11.0-16.0) % Plt Count 381 (160-400) X10*3/uL MPV 8.3 L (9.4-12.4) fL Immature Gran % (Auto) 0.8 H (0.0-0.4) % Neut % (Auto) 67.6 (45-73) % Lymph % (Auto) 21.5 (20-40) % [place] % (Auto) 8.5 (2-11) % Eos % (Auto) 1.2 (0-4) % Baso % (Auto) 0.4 (0-2) % Lymph # (Auto) 4.0 (1.2-4.9) X10*3/uL [place] # (Auto) 1.6 H (0.1-1.2) X10*3/uL Eos # (Auto) 0.2 (0.0-0.4) X10*3/uL Baso # (Auto) 0.1 (0.0-0.2) X10*3/uL Abs Immat Gran (auto) 0.15 H (0.00-0.03) X10*3/uL Absolute Neuts (auto) 12.6 H (2.0-8.3) x10*3/uL Absolute Nucleated RBC 0.000 (0.0-0.012) X10*3/uL Nucleated RBC % (auto) 0.0 (0.0-0.2) /100WBC Smear Tech's Comments VERIFIED ESR 23 H (0-15) MM/HR PT (9.9-13.0) SEC INR (0.9-1.1) Sodium 136 (135-145) mmol/L Potassium 4.0 (3.3-5.1) mmol/L Chloride 101 (96-108) mmol/L Carbon Dioxide 24 (22-29) mmol/L Anion Gap 15 (12-20) BUN 18 H (9-16) mg/dL Creatinine 0.95 (0.5-1.4) mg/dL Estim Creat Clear Calc 87.0 Estimated GFR > 60 Random Glucose 358 H* (60-115) mg/dL Uric Acid 4.3 (3.4-7.0) mg/dL Calcium 9.5 D (8.4-10.2) mg/dL Total Bilirubin 0.2 (0.0-1.0) mg/dL Direct Bilirubin < 0.2 (0.0-0.5) mg/dL AST 13 (5-37) U/L ALT 16 (0-40) U/L Alkaline Phosphatase 75 (39-117) U/L C-Reactive Protein 3.87 H (< or = 0.50) mg/dL Total Protein 6.9 (6.5-8.0) g/dL Albumin 3.9 (3.5-5.0) g/dL COVID-19 ([facility]) (Negative) COVID-19 Clin Com 05/28/21 05/28/21 Range/Units 01:42 01:43 WBC (4.8-10.8) X10*3/uL RBC (4.60-5.80) X10*6/uL Hgb (14.0-18.0) g/dl Hct (42.0-52.0) % MCV (80.0-98.0) fL MCH (27.0-33.0) pg MCHC (31.0-36.0) g/dl RDW (11.0-16.0) % Plt Count (160-400) X10*3/uL MPV (9.4-12.4) fL Immature Gran % (Auto) (0.0-0.4) % Neut % (Auto) (45-73) % Lymph % (Auto) (20-40) % [place] % (Auto) (2-11) % Eos % (Auto) (0-4) % Baso % (Auto) (0-2) % Lymph # (Auto) (1.2-4.9) X10*3/uL [place] # (Auto) (0.1-1.2) X10*3/uL Eos # (Auto) (0.0-0.4) X10*3/uL Baso # (Auto) (0.0-0.2) X10*3/uL Abs Immat Gran (auto) (0.00-0.03) X10*3/uL Absolute Neuts (auto) (2.0-8.3) x10*3/uL Absolute Nucleated RBC (0.0-0.012) X10*3/uL Nucleated RBC % (auto) (0.0-0.2) /100WBC Smear Tech's Comments ESR (0-15) MM/HR PT 11.2 (9.9-13.0) SEC INR 1.0 (0.9-1.1) Sodium (135-145) mmol/L Potassium (3.3-5.1) mmol/L Chloride (96-108) mmol/L Carbon Dioxide (22-29) mmol/L Anion Gap (12-20) BUN (9-16) mg/dL Creatinine (0.5-1.4) mg/dL Estim Creat Clear Calc Estimated GFR Random Glucose (60-115) mg/dL Uric Acid (3.4-7.0) mg/dL Calcium (8.4-10.2) mg/dL Total Bilirubin (0.0-1.0) mg/dL Direct Bilirubin (0.0-0.5) mg/dL AST (5-37) U/L ALT (0-40) U/L Alkaline Phosphatase (39-117) U/L C-Reactive Protein (< or = 0.50) mg/dL Total Protein (6.5-8.0) g/dL Albumin (3.5-5.0) g/dL COVID-19 ([facility]) Negative (Negative) COVID-19 Clin Com See Note Imaging Data elbow ct: Radiologist's impression: FINDINGS: Osseous alignment is anatomic. No acute fracture is seen. There is subcutaneous edema along the dorsum of the elbow and proximal forearm. Focal fluid collection is suspected in the deep dorsal subcutaneous tissues overlying the elbow and olecranon, measuring approximately 3.3 x 0.5 x 4.4 cm. Included vasculature appears patent. No soft tissue gas is seen. No significant elbow effusion identified. CT/CT elbow RT w con IMPRESSION: Subcutaneous edema along the dorsum of the elbow and proximal forearm. Fluid collection suspected in the associated subcutaneous tissues measuring approximately 3.3 x 0.5 x 4.4 cm, concerning for developing abscess in the proper clinical setting. Discharge Plan Discharge Clinical Impression: Cellulitis and abscess of upper extremity Patient Disposition: Admitted As Inpatient Prescriptions: No Action roflumilast [Daliresp] 250 mcg tablet 250 mcg PO DAILY Qty: 28 0RF tchaql-mvjswdne-phcnjpc [Creon] 24,000-76,000 -120,000 unit capsule,delayed release(DR/EC) 1 cap PO QID Qty: 120 2RF prednisone 10 mg tablet 10 mg PO DAILY 18 Days Qty: 63 0RF Rx Instructions: Take 6 tabs daily x 3 days, then 5 tabs x 3 days, then 4 tabs x 3 days, then 3 tabs x 3 days, then 2 tabs daily x 3 days, then 1 tab x 3 days to complete. zafirlukast 20 mg tablet 20 mg PO BID Qty: 60 10RF albuterol sulfate 0.63 mg/3 mL solution for nebulization 0.63 mg inhalation QID PRN (Reason: shortness of breath or wheezing) Qty: 75 0RF acetaminophen [Tylenol Extra Strength] 500 mg tablet 1,000 mg PO QID PRN (Reason: fever or pain) Qty: 14 0RF ipratropium-albuterol 0.5 mg-3 mg(2.5 mg base)/3 mL Solution For Nebulization 3 ml INHALATION Q4-6H PRN (Reason: Shortness Of Breath) 0RF cetirizine 10 mg Tablet 10 mg PO DAILY 0RF lisinopril 20 mg Tablet 20 mg PO DAILY 0RF tramadol 50 mg Tablet 50 mg PO Q6H PRN (Reason: Pain) 0RF baclofen 20 mg Tablet 20 mg PO TID 0RF famotidine [Pepcid] 20 mg Tablet 20 mg PO DAILY 0RF tamsulosin 0.4 mg Capsule 0.4 mg PO BEDTIME 0RF bupropion HCl [Wellbutrin XL] 150 mg Tablet Extended Release 24 Hr 150 mg PO QAM 0RF atorvastatin 10 mg tablet 1 tab PO BEDTIME 0RF amlodipine 5 mg tablet 1 tab PO DAILY 0RF acetaminophen [Arthritis Pain Relief (acetam)] 650 mg tablet extended release 1 tab PO Q8H PRN (Reason: Pain) 0RF mirtazapine 30 mg tablet PO 0RF lidocaine 5 % adhesive patch,medicated 1 patch topical Q12H 0RF gabapentin 300 mg capsule 2 cap PO TID 0RF omeprazole 20 mg capsule,delayed release(DR/EC) 1 cap PO DAILY 0RF calcium carbonate-vitamin D3 250-125 mg-unit tablet 1 tab PO BID 0RF albuterol sulfate 2.5 mg /3 mL (0.083 %) solution for nebulization 2.5 mg inhalation Q4-6H PRN (Reason: shortness of breath or wheezing) Qty: 75 0RF albuterol sulfate [ProAir HFA] 90 mcg/actuation HFA aerosol inhaler 1 inh inhalation QID PRN (Reason: shortness of breath or wheezing) Qty: 8.5 0RF docusate sodium [Colace] 100 mg capsule 100 mg PO DAILY 0RF simethicone 180 mg capsule 180 mg PO QID 30 Days Qty: 120 3RF Rx Instructions: after meals Linzess 290 mcg capsule 290 mcg PO DAILY 30 Days Qty: 30 6RF Rx Instructions: Take in the morning with a full glass of water nystatin 100,000 unit/gram ointment 1 appl topical TID Qty: 30 3RF doxycycline hyclate 100 mg capsule 100 mg PO BID 10 Days Qty: 20 0RF multivitamin Tablet 1 tab PO DAILY 30 Days Qty: 30 11RF melatonin 5 mg tablet 5 mg PO BEDTIME 30 Days Qty: 30 5RF Trelegy Ellipta 100-62.5-25 mcg blister with device 1 inh inhalation DAILY 30 Days Qty: 60 11RF nystatin 500,000 unit tablet 500,000 unit PO TID 10 Days Qty: 30 3RF Combivent Respimat 20-100 mcg/actuation mist 1 puff inhalation QID 30 Days Qty: 4 11RF Rx Instructions: space evenly during waking hours albuterol sulfate [ProAir HFA] 90 mcg/actuation HFA aerosol inhaler 2 puff INHALATION Q6H PRN (Reason: Shortness Of Breath) Qty: 8.5 11RF budesonide-formoterol [Symbicort] 160-4.5 mcg/actuation HFA aerosol inhaler 2 puff PO BID Qty: 10.2 11RF Spiriva Respimat 2.5 mcg/actuation mist 2 puff inhalation DAILY 30 Days Qty: 1 11RF Daliresp 500 mcg tablet 500 mcg PO DAILY 30 Days Qty: 30 11RF prednisone 10 mg tablet 20 mg PO DAILY 30 Days Qty: 60 4RF
[2021-05-28] MEDS: 0.9 % Sodium Chloride 1,000 ML 999 ML IVCONT ×2 (01:48→03:28)
[2021-05-28 01:50] LABS: Basophils Absolute Auto 0.1 X10*3/uL (0.0-0.2); Basophils Percent Auto 0.4 % (0-2); Eosinophils Absolute Auto 0.2 X10*3/uL (0.0-0.4); Eosinophils Percent Auto 1.2 % (0-4); Hematocrit 41.8 % (42.0-52.0); Hemoglobin 13.9 g/dl (14.0-18.0); Imm Gran Abs Auto 0.15 X10*3/uL (0.00-0.03); Imm Gran Pct Auto 0.8 % (0.0-0.4); Lymphocytes Percent Auto 21.5 % (20-40); MANUAL DIFF FLAG SCAN; Mean Corpuscular HGB Conc 33.3 g/dl (31.0-36.0); Mean Corpuscular Hemoglobin 30.8 pg (27.0-33.0); Mean Corpuscular Volume 92.7 fL (80.0-98.0); Mean Platelet Volume 8.3 fL (9.4-12.4); Monocytes Absolute Auto 1.6 X10*3/uL (0.1-1.2); Monocytes Percent Auto 8.5 % (2-11); Neutrophils Absolute Auto 12.6 x10*3/uL (2.0-8.3); Neutrophils Percent Auto 67.6 % (45-73); Platelet Count 381 X10*3/uL (160-400); Red Blood Count 4.51 X10*6/uL (4.60-5.80); Red Cell Distribution Width 13.4 % (11.0-16.0); SCAN SMEAR FLAG 1; White Blood Count 18.7 X10*3/uL (4.8-10.8)
--- NOTE | 2021-05-28 01:53 | PC.NURSE ---
IV established, IVF infusing. instructional media services technician at bedside for all labs and Covid swab. Pt aware of plan for CT.
[2021-05-28 01:56] LABS: Prothrombin Time 11.2 SEC (9.9-13.0)
[2021-05-28 02:03] LABS: COVID-19 Test Negative (Negative)
[2021-05-28 02:12] LABS: Alanine Aminotransferase 16 U/L (0-40); Albumin Level 3.9 g/dL (3.5-5.0); Alkaline Phosphatase 75 U/L (39-117); Anion Gap 15 (12-20); Aspartate Amino Transferase 13 U/L (5-37); Bilirubin Direct < 0.2 mg/dL (0.0-0.5); Bilirubin Total 0.2 mg/dL (0.0-1.0); Blood Urea Nitrogen 18 mg/dL (9-16); C Reactive Protein 3.87 mg/dL (< or = 0.50); Calcium 9.5 mg/dL (8.4-10.2); Carbon Dioxide 24 mmol/L (22-29); Chloride 101 mmol/L (96-108); Estimated Glomerular Filt Rate > 60; Glucose Random 358 mg/dL (60-115); Sodium 136 mmol/L (135-145); Total Protein 6.9 g/dL (6.5-8.0)
[2021-05-28 02:26] LABS: Erythrocyte Sedimentation Rate 23 MM/HR (0-15)
[2021-05-28 02:35] LABS: SLIDE REVIEW VERIFIED
[2021-05-28 02:42] LABS: Uric Acid 4.3 mg/dL (3.4-7.0)
[2021-05-28] MEDS: Insulin Regular, Human 100 UNIT/ML 3 ML VIAL 10 UNIT IVPUSH (02:50)
[2021-05-28] MEDS: iohexoL 350 MG/ML 100 ML INFUS..BTL 85 ML IV (02:52)
--- NOTE | 2021-05-28 02:52 | PC.NURSE ---
Pt returns from CT, medicated with Insulin per MAR.
--- NOTE | 2021-05-28 03:46 | PC.NURSE ---
food technician at bedside for second set of BCX. Plan for ABX after labs.
[2021-05-28] MEDS: Piperacillin Sodium/Tazobactam 3.375 GM in 0.9 % Sodium Chloride 50 ML IV ×2 (03:57→11:43)
[2021-05-28] MEDS: Morphine Sulfate 2 MG/ML CARTRIDGE IVPUSH (04:07)
[2021-05-28 04:08] LABS: Lactic Acid 1.6 mmol/L (0.5-2.0)
[2021-05-28] MEDS: vancomycin HCL 1,000 MG in 0.9 % Sodium Chloride 250 ML 270 MG IV (04:34)
[2021-05-28 07:53] LABS: Glucose, Whole Blood 103 mg/dL (60-115)
--- NOTE | 2021-05-28 07:57 | PM.CNGS ---
History of Present Illness Consult details Consult date: 05/28/21 Requesting physician: Ynes Collado Narrative: 51-year-old male patient presenting with a one-week history of swelling and redness in the right arm beginning at the elbow and extending down towards the wrist along the ulnar surface. He denies any injury to the elbow. He does report a history of diabetes, asthma, and hypertension. He denies a previous history of similar infections in the elbow denies any symptoms in the left arm. patient presented to the emergency department was noted to have an elevated WBC of 18.7. Ultrasound performed in the emergency department apparently showed no fluid collection however edema noted within the tissue. A CT of the right arm measuring approximately 3.3 x 0.5 x 4.4 cm concerning for developing abscess. He is admitted to the hospitalist service and placed on Zosyn and vancomycin. Review of Systems Constitutional: Constitutional: Denies chills, Denies fever(s), Denies headache(s) and Denies poor appetite ENT: Denies dizziness and Denies headache(s) Cardiovascular: Cardiovascular: Denies chest pain, Denies rapid heart rate, Denies palpitations and Denies slow heart rate Respiratory: Respiratory: Denies chest congestion, Denies cough, Denies pain on inspiration and Denies wheezing Gastrointestinal: Gastrointestinal: Denies abdominal pain, Denies bloating, Denies change in stool character, Denies constipation, Denies diarrhea, Denies nausea, Denies vomiting and Denies hematemesis Musculoskeletal: Musculoskeletal: Reports as per HPI, Denies back pain, Reports arthralgias, Reports joint swelling and Denies numbness Integumentary/Breasts: Skin/Breast: Denies change in pigmentation, Denies erythema and Denies rash Neurologic: Denies dizziness, Denies headache(s) and Denies numbness Psychiatric: Psychiatric: Denies anxiety and Denies depression Endocrine: Endocrine: Denies palpitations Hematologic/Lymphatic: Hematologic/Lymphatic: Denies easy bleeding, Denies easy bruising and Denies lymphadenopathy Allergic/Immunologic: Allergic/Immunologic: Denies wheezing PMFSH Past Medical History Medical History Anxiety and depression Arthritis Asthma Asthma-COPD overlap syndrome Back pain Chronic abdominal pain COPD (chronic obstructive pulmonary disease) Elevated cholesterol GERD (gastroesophageal reflux disease) History of kidney stones HTN (hypertension) Irritable bowel syndrome Osteoporosis Tobacco dependence Tubular adenoma of colon Family History Family History Father No problems noted. Mother No problems noted. Son No problems noted. Daughter No problems noted. Surgical History Surgical History Carpal tunnel syndrome (~08/2014) H/O wrist surgery History of hydrocelectomy Hx of colonoscopy S/P carpal tunnel release S/P extracorporeal shock wave therapy Shoulder symptoms with history of shoulder arthroplasty Status post hip surgery Social History Social History Alcohol intake: current Alcohol intake frequency: does not drink Patient Tobacco Use Status: Current everyday Tobacco user Cigarette Packs Per Day: 0.5 Cigarettes Per Day: 10.0 Years Smoked: 18 Second Hand Smoke Exposure: No Use of substances other than those prescribed or required for medical reasons: No Advance Directives: No Advance Directives Information Provided: Yes Meds Allergies Allergy/AdvReac Type Severity Reaction Status Date / Time ibuprofen [From Motrin] Allergy Rash Verified 05/28/21 01:12 Active Medications: Current Medications Acetaminophen (Acetaminophen 325 Mg Tablet) 650 mg PO Q6H PRN PRN Reason: Pain, Mild (Pain Scale 1-3) Albuterol Sulfate (Albuterol Sulfate 90 Mcg 8 Gm Inhaler) 2 puff INHALE Q6H PRN PRN Reason: dyspnea Albuterol/Ipratropium (Albuterol/Iprat 2.5/0.5mg 3 Ml Ampul.Neb) 3 ml INHALE RQID [facility] Amlodipine Besylate (Amlodipine Besylate 5 Mg Tablet) 5 mg PO DAILY [facility]; Protocol Atorvastatin Calcium (Atorvastatin Calcium 10 Mg Tablet) 10 mg PO BEDTIME [facility] Baclofen (Baclofen 20 Mg Tablet) 20 mg PO TID PRN PRN Reason: muscle spasm Calcium Carbonate/Cholecalciferol (Calcium + Vitamin D 250 Mg Tablet) 250 mg PO BID [facility] Dextrose (Dextrose 50 % 25 Gm/50 Ml Vial) 25 gm IVPUSH Q15M PRN; Protocol PRN Reason: per Hypoglycemia Standing Ord. Docusate Sodium (Docusate Sodium 100 Mg Capsule) 100 mg PO DAILY PRN PRN Reason: Constipation Enoxaparin Sodium (Enoxaparin Sodium 40 Mg/0.4 Ml Syringe) 40 mg SUBCUT Q24H [facility] Fluticasone/Vilanterol (Fluticasone/Vilanterol 200/25 Blst.W.Dev) 1 puff INHALE RDAILY [facility] Gabapentin (Gabapentin 300 Mg Capsule) 600 mg PO TID [facility] Glucose (Glucose Gel 15 Gm Gel..Gram.) 15 gm PO Q15M PRN; Protocol PRN Reason: per Hypoglycemia Standing Ord. Vancomycin HCl 1,250 mg/ (Sodium Chloride) 250 mls @ 166.667 mls/hr IV Q12H [facility] Piperacillin Sod/Tazobactam (Sod 3.375 gm/ Sodium Chloride) 50 mls @ 100 mls/hr IV Q6H [facility] Insulin Human Lispro (Insulin Lispro 100 Unit/Ml 3 Ml Vial) 0 unit SUBCUT QIDACHS [facility]; Protocol Last Admin: 05/28/21 07:45 Dose: Not Given Documented by: Lidocaine (Lidocaine 4 % Patch Adh..Patch) 1 patch TRANSDERMA DAILY [facility] Metoprolol Succinate (Metoprolol Succinate Er 25 Mg Tab.Er.24h) 25 mg PO DAILY [facility]; Protocol Mirtazapine (Mirtazapine 15 Mg Tablet) 15 mg PO BEDTIME [facility] Montelukast Sodium (Montelukast Sodium 10 Mg Tablet) 10 mg PO BEDTIME [facility] Ondansetron HCl (Ondansetron Hcl 4 Mg/2 Ml Vial) 4 mg IVPUSH Q8H PRN PRN Reason: Nausea and Vomiting Oxycodone HCl (Oxycodone Hcl Immed Release 5 Mg Tablet) 5 mg PO Q6H PRN PRN Reason: Pain, Severe (Pain Scale 7-10) Pharmacy Consult (Consult Rx Vancomycin Dosing) 1 each MISCELLANE DAILY PRN PRN Reason: Consult order Pharmacy Consult (Consult Rx Vancomycin Dosing) 1 each MISCELLANE DAILY PRN PRN Reason: Consult order Prednisone (Prednisone 10 Mg Tablet) 10 mg PO DAILY [facility] Sodium Chloride (0.9 % Sodium Chloride Flush 3 Ml Syringe) 3 ml IVFLUSH QSHIFT [facility] Tramadol HCl (Tramadol Hcl 50 Mg Tablet) 50 mg PO Q6H PRN PRN Reason: severe pain Vitamin D (Cholecalciferol (Vitamin D3) 25 Mcg Tablet) 50 mcg PO DAILY [facility] Home Medications Medication Instructions Recorded Confirmed Last Taken Type acetaminophen 650 mg 650 mg PO Q8H PRN 05/28/21 05/28/21 Unknown History tablet,extended release albuterol sulfate 90 mcg/actuation 2 puff PO Q6H PRN 05/28/21 05/28/21 Unknown History aerosol inhaler (ProAir HFA) amlodipine 5 mg tablet 5 mg PO DAILY 05/28/21 05/28/21 Unknown History atorvastatin 10 mg tablet 10 mg PO BEDTIME 05/28/21 05/28/21 Unknown History baclofen 20 mg tablet 20 mg PO TID PRN 05/28/21 05/28/21 Unknown History budesonide-formoterol HFA 160 2 puff PO BID 05/28/21 05/28/21 Unknown History mcg-4.5 mcg/actuation aerosol inhaler (Symbicort) bupropion HCl 150 mg tablet,12 hr 150 mg PO 05/28/21 Unknown History sustained-release calcium carbonate 500 mg-vitamin 1 tab PO BID 05/28/21 05/28/21 Unknown History D3 5 mcg (200 unit) tablet (Oyster Shell Calcium-Vitamin D3) cholecalciferol (vitamin D3) 50 2,000 unit PO DAILY 05/28/21 05/28/21 Unknown History mcg (2,000 unit) tablet fluconazole 150 mg tablet 150 mg PO DAILY 05/28/21 05/28/21 Unknown History gabapentin 300 mg capsule 600 mg PO TID 05/28/21 05/28/21 Unknown History ipratropium 20 mcg-albuterol 100 1 puff PO QID 05/28/21 05/28/21 Unknown History mcg/actuation mist for inhalation (Combivent Respimat) lidocaine 5 % topical patch 1 patch TOPICAL DAILY 05/28/21 05/28/21 Unknown History (Lidoderm) metformin 500 mg tablet 500 mg PO BID 05/28/21 Unknown History metoprolol succinate 25 mg 25 mg PO DAILY 05/28/21 05/28/21 Unknown History tablet,extended release 24 hr mirtazapine 30 mg tablet 15 mg PO BEDTIME 05/28/21 05/28/21 Unknown History prednisone 10 mg tablet 10 mg PO DAILY 05/28/21 05/28/21 Unknown History tiotropium bromide 2.5 2 puff PO DAILY 05/28/21 05/28/21 Unknown History mcg/actuation mist for inhalation (Spiriva Respimat) tramadol 50 mg tablet 50 mg PO Q6H PRN 05/28/21 05/28/21 Unknown History zafirlukast 20 mg tablet 20 mg PO BID 05/28/21 05/28/21 Unknown History Physical Exam Vital Signs: Vital Signs: Last Vital Signs Temp 98.0 F 05/28/21 07:42 Pulse 75 05/28/21 07:42 Resp 20 05/28/21 07:42 BP 111/62 05/28/21 07:42 Pulse Ox 95 05/28/21 07:42 BMI result Body Mass Index 27.3 Const: General: cooperative and well developed Nutritional Appearance: well nourished Orientation/consciousness: patient oriented x3 HENMT: Head: Yes normocephalic and Yes atraumatic Eyes: Sclerae: sclerae normal EOM: EOMs intact bilaterally Neck: Neck: Yes normal visual inspection Resp: Effort & Inspection: normal respiratory effort, no cough, no respiratory distress and no stridor Cardio: Jugular venous distension: no JVD GI: Inspection: Yes normal to inspection Palpation (GI): Soft to palpation, nontender, no guarding and not rigid Skin: Other: Reddened skin in the right forearm and elbow, see below Neuro: General: patient oriented x3 and no focal motor deficits Extrem: Other: area of swelling at the right elbow directly over the olecranon bursa suggestive of a bursitis. This area is tender to palpation in the skin is slightly reddened. Also redness extending along the ulnar surface of the right arm with no evidence of fluctuance tenderness. Several dilated veins are noted proximal to this the upper arm. There is no evidence of superficial thrombosis however. General: Yes full ROM and Yes no clubbing, cyanosis or edema Elbow/forearm/wrist images: 1. right elbow swelling, tenderness 2. area of redness Psych: Appearance: grossly normal Results Labs Result diagrams: 05/28/21 01:42 05/28/21 01:42 Labs: Abnormal lab results 05/28/21 05/28/21 05/28/21 Range/Units 01:42 01:42 01:42 WBC 18.7 H (4.8-10.8) X10*3/uL RBC 4.51 L (4.60-5.80) X10*6/uL Hgb 13.9 L (14.0-18.0) g/dl Hct 41.8 L (42.0-52.0) % MPV 8.3 L (9.4-12.4) fL Immature Gran % (Auto) 0.8 H (0.0-0.4) % Phillips # (Auto) 1.6 H (0.1-1.2) X10*3/uL Abs Immat Gran (auto) 0.15 H (0.00-0.03) X10*3/uL Absolute Neuts (auto) 12.6 H (2.0-8.3) x10*3/uL ESR 23 H (0-15) MM/HR BUN 18 H (9-16) mg/dL Random Glucose 358 H* (60-115) mg/dL C-Reactive Protein 3.87 H (< or = 0.50) mg/dL Short CBC 05/28/21 Range/Units 01:42 WBC 18.7 H (4.8-10.8) X10*3/uL Hgb 13.9 L (14.0-18.0) g/dl Hct 41.8 L (42.0-52.0) % Plt Count 381 (160-400) X10*3/uL BMP 05/28/21 01:42 Sodium 136 Potassium 4.0 Chloride 101 Carbon Dioxide 24 BUN 18 H Creatinine 0.95 Calcium 9.5 D Liver Function 05/28/21 Range/Units 01:42 Total Bilirubin 0.2 (0.0-1.0) mg/dL Direct Bilirubin < 0.2 (0.0-0.5) mg/dL AST 13 (5-37) U/L ALT 16 (0-40) U/L Alkaline Phosphatase 75 (39-117) U/L Albumin 3.9 (3.5-5.0) g/dL All other labs normal. Imaging Additional studies: reviewed CT right arm Assessment and Plan (1) Cellulitis and abscess of upper extremity: Status: Acute (2) Olecranon bursitis of right elbow: Status: Acute Plan 51 year old male patient found to have a swollen red elbow which is tender to palpation with redness extending down the arm but without significant tenderness. There is no history of injury or IV injection. CT does revealed a fluid collection at the elbow as noted above. This seems to be directly over the olecranon bursa. I would suggest orthopedic consultation for evaluation and possible drainage. Agree with current antibiotics for the surrounding cellulitis. Procedures Date of Service Date of Service: 05/28/21
--- NOTE | 2021-05-28 08:04 | P.HPHOSP_ITS ---
History of Present Illness Date of Service: 05/28/21 Chief Complaint: right elbow swelling this is a 51-year-old male with past medical history including sees asthma COPD overlap syndrome hyperlipidemia, hypertension IBS who presents to the hospital with complaints of redness, swelling of his right elbow. Patient reports the symptoms started 4-5 days ago, has 8 to 9/10 pain, radiating down to his wrist, the redness has increased over the last 2 days and has now covered all of his forearm. He denies any chills, no fever, no abdominal pain nausea or vomiting, no diarrhea constipation, no urinary symptoms and no lower extremity edema. No chest pain or shortness of breath. On arrival to the ED patient hemodynamically stable with no significant labs are significant for WBC count of 18.7, hemoglobin of 13.9, glucose of 358, CRP of 3.87, elbow CT shows subcutaneous edema along the dorsum of the elbow and proximal forearm. Fluid collection suspected in the associated subcutaneous tissue concerning for developing abscess ED physician attempted to drain the abscess but was unsuccessful therefore patient will need admission for surgical evaluation and possible I&D Review of Systems Review of Systems: Yes all other systems are reviewed and are negative [facility] Medical History Anxiety and depression Arthritis Asthma Asthma-COPD overlap syndrome Back pain Chronic abdominal pain COPD (chronic obstructive pulmonary disease) Elevated cholesterol GERD (gastroesophageal reflux disease) History of kidney stones HTN (hypertension) Irritable bowel syndrome Osteoporosis Tobacco dependence Tubular adenoma of colon Family History Father No problems noted. Mother No problems noted. Son No problems noted. Daughter No problems noted. Surgical History Carpal tunnel syndrome (~08/2014) H/O wrist surgery History of hydrocelectomy Hx of colonoscopy S/P carpal tunnel release S/P extracorporeal shock wave therapy Shoulder symptoms with history of shoulder arthroplasty Status post hip surgery Social History Alcohol intake: current Alcohol intake frequency: does not drink Patient Tobacco Use Status: Current everyday Tobacco user Cigarette Packs Per Day: 0.5 Cigarettes Per Day: 10.0 Years Smoked: 18 Second Hand Smoke Exposure: No Use of substances other than those prescribed or required for medical reasons: No Advance Directives: No Advance Directives Information Provided: Yes Meds Allergies Allergy/AdvReac Type Severity Reaction Status Date / Time ibuprofen [From Motrin] Allergy Rash Verified 05/28/21 01:12 Active Medications: Current Medications Acetaminophen (Acetaminophen 325 Mg Tablet) 650 mg PO Q6H PRN PRN Reason: Pain, Mild (Pain Scale 1-3) Albuterol Sulfate (Albuterol Sulfate 90 Mcg 8 Gm Inhaler) 2 puff INHALE Q6H PRN PRN Reason: dyspnea Albuterol/Ipratropium (Albuterol/Iprat 2.5/0.5mg 3 Ml Ampul.Neb) 3 ml INHALE RQID [facility] Amlodipine Besylate (Amlodipine Besylate 5 Mg Tablet) 5 mg PO DAILY [facility]; Protocol Atorvastatin Calcium (Atorvastatin Calcium 10 Mg Tablet) 10 mg PO BEDTIME [facility] Baclofen (Baclofen 20 Mg Tablet) 20 mg PO TID PRN PRN Reason: muscle spasm Calcium Carbonate/Cholecalciferol (Calcium + Vitamin D 250 Mg Tablet) 250 mg PO BID [facility] Dextrose (Dextrose 50 % 25 Gm/50 Ml Vial) 25 gm IVPUSH Q15M PRN; Protocol PRN Reason: per Hypoglycemia Standing Ord. Docusate Sodium (Docusate Sodium 100 Mg Capsule) 100 mg PO DAILY PRN PRN Reason: Constipation Enoxaparin Sodium (Enoxaparin Sodium 40 Mg/0.4 Ml Syringe) 40 mg SUBCUT Q24H [facility] Fluticasone/Vilanterol (Fluticasone/Vilanterol 200/25 Blst.W.Dev) 1 puff INHALE RDAILY [facility] Gabapentin (Gabapentin 300 Mg Capsule) 600 mg PO TID [facility] Glucose (Glucose Gel 15 Gm Gel..Gram.) 15 gm PO Q15M PRN; Protocol PRN Reason: per Hypoglycemia Standing Ord. Piperacillin Sod/Tazobactam (Sod 3.375 gm/ Sodium Chloride) 50 mls @ 100 mls/hr IV Q6H [facility] Vancomycin HCl 500 mg/ Sodium (Chloride) 110 mls @ 110 mls/hr IV NOW STA Stop: 05/28/21 08:58 Vancomycin HCl 1,000 mg/ (Sodium Chloride) 270 mls @ 270 mls/hr IV Q12H [facility] Insulin Human Lispro (Insulin Lispro 100 Unit/Ml 3 Ml Vial) 0 unit SUBCUT QIDACHS [facility]; Protocol Last Admin: 05/28/21 07:45 Dose: Not Given Documented by: Lidocaine (Lidocaine 4 % Patch Adh..Patch) 1 patch TRANSDERMA DAILY [facility] Metoprolol Succinate (Metoprolol Succinate Er 25 Mg Tab.Er.24h) 25 mg PO DAILY [facility]; Protocol Mirtazapine (Mirtazapine 15 Mg Tablet) 15 mg PO BEDTIME [facility] Montelukast Sodium (Montelukast Sodium 10 Mg Tablet) 10 mg PO BEDTIME [facility] Ondansetron HCl (Ondansetron Hcl 4 Mg/2 Ml Vial) 4 mg IVPUSH Q8H PRN PRN Reason: Nausea and Vomiting Oxycodone HCl (Oxycodone Hcl Immed Release 5 Mg Tablet) 5 mg PO Q6H PRN PRN Reason: Pain, Severe (Pain Scale 7-10) Pharmacy Consult (Consult Rx Vancomycin Dosing) 1 each MISCELLANE DAILY PRN PRN Reason: Consult order Pharmacy Consult (Consult Rx Vancomycin Dosing) 1 each MISCELLANE DAILY PRN PRN Reason: Consult order Prednisone (Prednisone 10 Mg Tablet) 10 mg PO DAILY [facility] Sodium Chloride (0.9 % Sodium Chloride Flush 3 Ml Syringe) 3 ml IVFLUSH QSHIFT [facility] Tramadol HCl (Tramadol Hcl 50 Mg Tablet) 50 mg PO Q6H PRN PRN Reason: severe pain Vitamin D (Cholecalciferol (Vitamin D3) 25 Mcg Tablet) 50 mcg PO DAILY [facility] Home Medications Medication Instructions Recorded Confirmed Last Taken Type acetaminophen 650 mg 650 mg PO Q8H PRN 05/28/21 05/28/21 Unknown History tablet,extended release albuterol sulfate 90 mcg/actuation 2 puff PO Q6H PRN 05/28/21 05/28/21 Unknown History aerosol inhaler (ProAir HFA) amlodipine 5 mg tablet 5 mg PO DAILY 05/28/21 05/28/21 Unknown History atorvastatin 10 mg tablet 10 mg PO BEDTIME 05/28/21 05/28/21 Unknown History baclofen 20 mg tablet 20 mg PO TID PRN 05/28/21 05/28/21 Unknown History budesonide-formoterol HFA 160 2 puff PO BID 05/28/21 05/28/21 Unknown History mcg-4.5 mcg/actuation aerosol inhaler (Symbicort) bupropion HCl 150 mg tablet,12 hr 150 mg PO 05/28/21 Unknown History sustained-release calcium carbonate 500 mg-vitamin 1 tab PO BID 05/28/21 05/28/21 Unknown History D3 5 mcg (200 unit) tablet (Oyster Shell Calcium-Vitamin D3) cholecalciferol (vitamin D3) 50 2,000 unit PO DAILY 05/28/21 05/28/21 Unknown History mcg (2,000 unit) tablet fluconazole 150 mg tablet 150 mg PO DAILY 05/28/21 05/28/21 Unknown History gabapentin 300 mg capsule 600 mg PO TID 05/28/21 05/28/21 Unknown History ipratropium 20 mcg-albuterol 100 1 puff PO QID 05/28/21 05/28/21 Unknown History mcg/actuation mist for inhalation (Combivent Respimat) lidocaine 5 % topical patch 1 patch TOPICAL DAILY 05/28/21 05/28/21 Unknown History (Lidoderm) metformin 500 mg tablet 500 mg PO BID 05/28/21 Unknown History metoprolol succinate 25 mg 25 mg PO DAILY 05/28/21 05/28/21 Unknown History tablet,extended release 24 hr mirtazapine 30 mg tablet 15 mg PO BEDTIME 05/28/21 05/28/21 Unknown History prednisone 10 mg tablet 10 mg PO DAILY 05/28/21 05/28/21 Unknown History tiotropium bromide 2.5 2 puff PO DAILY 05/28/21 05/28/21 Unknown History mcg/actuation mist for inhalation (Spiriva Respimat) tramadol 50 mg tablet 50 mg PO Q6H PRN 05/28/21 05/28/21 Unknown History zafirlukast 20 mg tablet 20 mg PO BID 05/28/21 05/28/21 Unknown History Physical Exam Vital Signs and Narrative: Vital Signs: Last Vital Signs Temp 98.0 F 05/28/21 07:42 Pulse 75 05/28/21 07:42 Resp 20 05/28/21 07:42 BP 111/62 05/28/21 07:42 Pulse Ox 95 05/28/21 07:42 BMI result Body Mass Index 27.3 Const: General: cooperative and no acute distress Orientation/consciousness: patient oriented x3 Eyes: General: appearance normal, both eyes and all related structures Pupils: Equal, round and reactive pupils present Resp: Effort & Inspection: normal respiratory effort Auscultation: clear to auscultation bilaterally Cardio: Rate: regular rate Rhythm: regular rhythm GI: Palpation (GI): Soft to palpation Auscultation: normal bowel sounds Skin: General skin exam: no rashes or lesions noted Neuro: General: patient oriented x3 Cranial nerves: Yes Equal, round and reactive pupils present Cognition (Neuro): normal cognition Extrem: Other: erythema, tenderness, edema, warmth around the medial aspect of the forearm extending to the wrist Results Labs CBC and Chem 7: 05/28/21 01:42 05/28/21 01:42 Labs: Laboratory Results - last 24 hr 05/28/21 05/28/21 05/28/21 01:42 01:42 01:42 MCV 92.7 MCH 30.8 MCHC 33.3 RDW 13.4 Plt Count 381 MPV 8.3 L Immature Gran % (Auto) 0.8 H Neut % (Auto) 67.6 Lymph % (Auto) 21.5 Catron % (Auto) 8.5 Eos % (Auto) 1.2 Baso % (Auto) 0.4 Lymph # (Auto) 4.0 Catron # (Auto) 1.6 H Eos # (Auto) 0.2 Baso # (Auto) 0.1 Abs Immat Gran (auto) 0.15 H Absolute Neuts (auto) 12.6 H Absolute Nucleated RBC 0.000 Nucleated RBC % (auto) 0.0 Smear Tech's Comments VERIFIED ESR 23 H PT INR Anion Gap 15 Estim Creat Clear Calc 87.0 Estimated GFR > 60 POC Glucose Random Glucose 358 H* Lactic Acid Uric Acid 4.3 Calcium 9.5 D Total Bilirubin 0.2 Direct Bilirubin < 0.2 AST 13 ALT 16 Alkaline Phosphatase 75 C-Reactive Protein 3.87 H Total Protein 6.9 Albumin 3.9 COVID-19 ([facility]) COVID-19 Clin Com 05/28/21 05/28/21 05/28/21 01:42 01:43 03:51 MCV MCH MCHC RDW Plt Count MPV Immature Gran % (Auto) Neut % (Auto) Lymph % (Auto) Catron % (Auto) Eos % (Auto) Baso % (Auto) Lymph # (Auto) Catron # (Auto) Eos # (Auto) Baso # (Auto) Abs Immat Gran (auto) Absolute Neuts (auto) Absolute Nucleated RBC Nucleated RBC % (auto) Smear Tech's Comments ESR PT 11.2 INR 1.0 Anion Gap Estim Creat Clear Calc Estimated GFR POC Glucose Random Glucose Lactic Acid 1.6 Uric Acid Calcium Total Bilirubin Direct Bilirubin AST ALT Alkaline Phosphatase C-Reactive Protein Total Protein Albumin COVID-19 ([facility]) Negative COVID-19 Clin Com See Note 05/28/21 07:39 MCV MCH MCHC RDW Plt Count MPV Immature Gran % (Auto) Neut % (Auto) Lymph % (Auto) Catron % (Auto) Eos % (Auto) Baso % (Auto) Lymph # (Auto) Catron # (Auto) Eos # (Auto) Baso # (Auto) Abs Immat Gran (auto) Absolute Neuts (auto) Absolute Nucleated RBC Nucleated RBC % (auto) Smear Tech's Comments ESR PT INR Anion Gap Estim Creat Clear Calc Estimated GFR POC Glucose 103 Random Glucose Lactic Acid Uric Acid Calcium Total Bilirubin Direct Bilirubin AST ALT Alkaline Phosphatase C-Reactive Protein Total Protein Albumin COVID-19 ([facility]) COVID-19 Clin Com Imaging Radiologist's Impressions: Impressions Elbow CT 05/28/21 02:40 IMPRESSION: Subcutaneous edema along the dorsum of the elbow and proximal forearm. Fluid collection suspected in the associated subcutaneous tissues measuring approximately 3.3 x 0.5 x 4.4 cm, concerning for developing abscess in the proper clinical setting. Assessment and Plan (1) Cellulitis and abscess of upper extremity: Status: Acute Plan 51-year-old male with past medical history as mentioned above presents to the hospital with complaints of redness and pain in his right elbow found to have cellulitis as well as developing abscess # cellulitis and abscess of right upper extremity - has leukocytosis, abscess formation, abscess drainage was attempted in the ED but was not successfu - given the presence of the abscess will treat with broad-spectrum IV antibiotics - this general surgery consulted for abscess evaluation possible I&D - follow cultures # history of diabetes - will place on low-dose sliding scale insulin - diabetic diet # COPD - not in exacerbation - continue inhalers will continue all his other medications DVT prophylaxis: lovenox Quality Stroke Does the patient have a stroke diagnosis?: No VTE Prior VTE?: No VTE Risk Level:: Medical - moderate - high VTE Device Contraindication: Treatment Not Indicated VTE Drug Contraindication: N/A - Med Ordered
--- NOTE | 2021-05-28 08:05 | PC.NURSE ---
this rn called the field radio technician to assist going over the pt medication pt getting extremely agitated with this rn because pt is stating that he is taking his medication a certain way for the last 35years and that he wants it this way and no other way. takes his prednisone in the morning and night if he feels like he needs another does, singular that he takes bid and other medications he does not want at all except his blood pressure meds. This rn attempts to explain the pt i can not give him medications that are not ordered that way but i can work on contacting the doctor that is taking care of him and try to change the orders, but at this moment this rn can not get things that are not ordered. The pt keeps getting more agitated/raising his voice/pushing the the side table to the side. medical interpreted at the bedside pt requesting a different nurse to take of him, charge nurse aware of this situation
--- NOTE | 2021-05-28 08:05 | PHA.PROG ---
Admission Date/Time: May 28, 2021 06:22 Indication: SKIN AND SKIN STRUCTURE Weight in k.647 kg Adjusted body weight in K.7 [place] body weight in K.4 Obesity Dosing Indication % IBW: Serum Creatinine - Last 168 Hours 05/28/21 01:42 Creatinine 0.95 Estimated CrCl and GFR - Last 168 Hours 05/28/21 01:42 Estim Creat Clear Calc 87.0 Estimated GFR > 60 Vancomycin Loading DOSE: 1500 MG Current Vancomycin Dosing Regimen:1000 MG Q 12 HOURS Vancomycin Monitoring using AUC goal of 400 - 600 range with trough as surrogate marker: Date and Time for next Vancomycin Level to be drawn: Pharmacist Comments on Vancomycin Plan:PREDICTED AUC OF 489 Vancomycin dosing will take advantage of [employer] as a clinical decision support tool that uses Bayesian modeling to calculate individual patient's pharmacokinetic parameters and forecast the patient's drug concentration time course with the target goal AUC 24 range of 400 - 600 mg/L/hr.
--- NOTE | 2021-05-28 08:06 | HO.PM.IMPN ---
Subjective Subjective Date of Service: 05/28/21 Interval History: elbow cellulitis/abcess Physical Exam Vital Signs: Vital Signs: Last Vital Signs Temp 98.0 F 05/28/21 07:42 Pulse 75 05/28/21 07:42 Resp 20 05/28/21 07:42 BP 111/62 05/28/21 07:42 Pulse Ox 95 05/28/21 07:42 BMI result Body Mass Index 27.3 Objective Data Active Medications Acetaminophen (Acetaminophen 325 Mg Tablet) 650 mg PO Q6H PRN PRN Reason: Pain, Mild (Pain Scale 1-3) Albuterol Sulfate (Albuterol Sulfate 90 Mcg 8 Gm Inhaler) 2 puff INHALE Q6H PRN PRN Reason: dyspnea Albuterol/Ipratropium (Albuterol/Iprat 2.5/0.5mg 3 Ml Ampul.Neb) 3 ml INHALE RQID RAHEL Amlodipine Besylate (Amlodipine Besylate 5 Mg Tablet) 5 mg PO DAILY RAHEL; Protocol Atorvastatin Calcium (Atorvastatin Calcium 10 Mg Tablet) 10 mg PO BEDTIME RAHEL Baclofen (Baclofen 20 Mg Tablet) 20 mg PO TID PRN PRN Reason: muscle spasm Calcium Carbonate/Cholecalciferol (Calcium + Vitamin D 250 Mg Tablet) 250 mg PO BID [facility] Dextrose (Dextrose 50 % 25 Gm/50 Ml Vial) 25 gm IVPUSH Q15M PRN; Protocol PRN Reason: per Hypoglycemia Standing Ord. Docusate Sodium (Docusate Sodium 100 Mg Capsule) 100 mg PO DAILY PRN PRN Reason: Constipation Enoxaparin Sodium (Enoxaparin Sodium 40 Mg/0.4 Ml Syringe) 40 mg SUBCUT Q24H [facility] Fluticasone/Vilanterol (Fluticasone/Vilanterol 200/25 Blst.W.Dev) 1 puff INHALE RDAILY [facility] Gabapentin (Gabapentin 300 Mg Capsule) 600 mg PO TID [facility] Glucose (Glucose Gel 15 Gm Gel..Gram.) 15 gm PO Q15M PRN; Protocol PRN Reason: per Hypoglycemia Standing Ord. Piperacillin Sod/Tazobactam (Sod 3.375 gm/ Sodium Chloride) 50 mls @ 100 mls/hr IV Q6H [facility] Vancomycin HCl 500 mg/ Sodium (Chloride) 110 mls @ 110 mls/hr IV NOW STA Stop: 05/28/21 08:58 Vancomycin HCl 1,000 mg/ (Sodium Chloride) 270 mls @ 270 mls/hr IV Q12H [facility] Insulin Human Lispro (Insulin Lispro 100 Unit/Ml 3 Ml Vial) 0 unit SUBCUT QIDACHS [facility]; Protocol Last Admin: 05/28/21 07:45 Dose: Not Given Documented by: SILVA Non-Admin Reason: poc 103 Lidocaine (Lidocaine 4 % Patch Adh..Patch) 1 patch TRANSDERMA DAILY [facility] Metoprolol Succinate (Metoprolol Succinate Er 25 Mg Tab.Er.24h) 25 mg PO DAILY [facility]; Protocol Mirtazapine (Mirtazapine 15 Mg Tablet) 15 mg PO BEDTIME RAHEL Montelukast Sodium (Montelukast Sodium 10 Mg Tablet) 10 mg PO BEDTIME [facility] Ondansetron HCl (Ondansetron Hcl 4 Mg/2 Ml Vial) 4 mg IVPUSH Q8H PRN PRN Reason: Nausea and Vomiting Oxycodone HCl (Oxycodone Hcl Immed Release 5 Mg Tablet) 5 mg PO Q6H PRN PRN Reason: Pain, Severe (Pain Scale 7-10) Pharmacy Consult (Consult Rx Vancomycin Dosing) 1 each MISCELLANE DAILY PRN PRN Reason: Consult order Pharmacy Consult (Consult Rx Vancomycin Dosing) 1 each MISCELLANE DAILY PRN PRN Reason: Consult order Prednisone (Prednisone 10 Mg Tablet) 10 mg PO DAILY [facility] Sodium Chloride (0.9 % Sodium Chloride Flush 3 Ml Syringe) 3 ml IVFLUSH QSHIFT [facility] Tramadol HCl (Tramadol Hcl 50 Mg Tablet) 50 mg PO Q6H PRN PRN Reason: severe pain Vitamin D (Cholecalciferol (Vitamin D3) 25 Mcg Tablet) 50 mcg PO DAILY [facility] Labs CBC & Chem 7: 05/28/21 01:42 05/28/21 01:42 Labs: Laboratory Results - last 24 hr 05/28/21 05/28/21 05/28/21 01:42 01:42 01:42 MCV 92.7 MCH 30.8 MCHC 33.3 RDW 13.4 Plt Count 381 MPV 8.3 L Immature Gran % (Auto) 0.8 H Neut % (Auto) 67.6 Lymph % (Auto) 21.5 [place] % (Auto) 8.5 Eos % (Auto) 1.2 Baso % (Auto) 0.4 Lymph # (Auto) 4.0 [place] # (Auto) 1.6 H Eos # (Auto) 0.2 Baso # (Auto) 0.1 Abs Immat Gran (auto) 0.15 H Absolute Neuts (auto) 12.6 H Absolute Nucleated RBC 0.000 Nucleated RBC % (auto) 0.0 Smear Tech's Comments VERIFIED ESR 23 H PT INR Anion Gap 15 Estim Creat Clear Calc 87.0 Estimated GFR > 60 POC Glucose Random Glucose 358 H* Lactic Acid Uric Acid 4.3 Calcium 9.5 D Total Bilirubin 0.2 Direct Bilirubin < 0.2 AST 13 ALT 16 Alkaline Phosphatase 75 C-Reactive Protein 3.87 H Total Protein 6.9 Albumin 3.9 COVID-19 ([facility]RIANO) COVID-[facility] 05/28/21 05/28/21 05/28/21 01:42 01:43 03:51 MCV MCH MCHC RDW Plt Count MPV Immature Gran % (Auto) Neut % (Auto) Lymph % (Auto) [place] % (Auto) Eos % (Auto) Baso % (Auto) Lymph # (Auto) [place] # (Auto) Eos # (Auto) Baso # (Auto) Abs Immat Gran (auto) Absolute Neuts (auto) Absolute Nucleated RBC Nucleated RBC % (auto) Smear Tech's Comments ESR PT 11.2 INR 1.0 Anion Gap Estim Creat Clear Calc Estimated GFR POC Glucose Random Glucose Lactic Acid 1.6 Uric Acid Calcium Total Bilirubin Direct Bilirubin AST ALT Alkaline Phosphatase C-Reactive Protein Total Protein Albumin COVID-19 (ADRIANO) Negative [facility] See Note 05/28/21 07:39 MCV MCH MCHC RDW Plt Count MPV Immature Gran % (Auto) Neut % (Auto) Lymph % (Auto) [place] % (Auto) Eos % (Auto) Baso % (Auto) Lymph # (Auto) [place] # (Auto) Eos # (Auto) Baso # (Auto) Abs Immat Gran (auto) Absolute Neuts (auto) Absolute Nucleated RBC Nucleated RBC % (auto) Smear Tech's Comments ESR PT INR Anion Gap Estim Creat Clear Calc Estimated GFR POC Glucose 103 Random Glucose Lactic Acid Uric Acid Calcium Total Bilirubin Direct Bilirubin AST ALT Alkaline Phosphatase C-Reactive Protein Total Protein Albumin COVID-19 (ADRIANO) COVID-yoone Quality VTE VTE Risk Level:: Medical - moderate - high VTE Device Contraindication: Treatment Not Indicated VTE Drug Contraindication: N/A - Med Ordered
[2021-05-28] MEDS: amLODIPine Besylate 5 MG TABLET PO (08:17)
[2021-05-28] MEDS: Metoprolol Succinate ER 25 MG TAB.ER.24H PO (08:17)
[2021-05-28] MEDS: traMADoL HCL 50 MG TABLET PO ×2 (08:18→17:27)
[2021-05-28] MEDS: predniSONE 10 MG TABLET PO (08:18)
--- NOTE | 2021-05-28 08:50 | PHA.MEDREC ---
Pharmacy Consult ? Medication Reconciliation Nursing has completed the medication reconciliation and pharmacy has reviewed.
[2021-05-28] MEDS: oxyCODONE HCl Immed Release 5 MG TABLET PO (08:58)
[2021-05-28] MEDS: vancomycin HCL 500 MG in 0.9 % Sodium Chloride 100 ML 110 MG IV (08:58)
--- NOTE | 2021-05-28 09:00 | PC.NURSE ---
report given to jeramie duran
[2021-05-28] MEDS: 0.9 % Sodium Chloride Flush 3 ML SYRINGE IVFLUSH (09:12)
--- NOTE | 2021-05-28 11:05 | PM.DS ---
DS: Providers Provider Date of Service: 05/29/21 Date of admission: 05/28/21 06:22 Primary care physician: [facility] Consults: 05/28/21 06:20 Consult to General Surgery Routine Consulting Provider: Lam Nguyen Reason for consultation: abscess 05/28/21 14:05 Consult to Orthopedics Routine Consulting Provider: [facility] Reason for consultation: right olecrenon collection(? abcess),cellulitis Has provider been notified: No DS: Diagnosis Discharge Diagnosis (1) Cellulitis and abscess of upper extremity: Status: Acute (2) Olecranon bursitis of right elbow: Status: Acute DS: Summary Hospital Course Hospital Course: 51-year-old male with past medical history including sees asthma COPD overlap syndrome hyperlipidemia, hypertension IBS? who presents to the hospital with complaints of redness, swelling of his right elbow.? Patient reports the symptoms started 4-5 days ago, has 8 to 9/10 pain, radiating down to his wrist, the redness has increased over the last 2 days and has now covered all of his forearm.? He denies any chills, no fever, no abdominal pain nausea or vomiting, no diarrhea constipation, no urinary symptoms and no lower extremity edema.? No chest pain or shortness of breath.? On arrival to the ED patient hemodynamically stable with no significant labs are significant for? WBC count of 18.7, hemoglobin of 13.9, glucose of 358, CRP of 3.87, elbow CT shows subcutaneous edema along the dorsum of the elbow and proximal forearm.? Fluid collection suspected in the associated subcutaneous tissue concerning for developing abscess ?ED physician attempted to drain the abscess but was unsuccessful therefore patient will need admission for surgical evaluation and possible I&D. Hospital course: Patient came with right elbow olecranon cellulitis/concern developing abscess: Started on IV antibiotics, -patient eloped, did not wait for position to see him, added p.o. antibiotics-sent to his pharmacy today. Called patient's phone number available in the chart and his mother: Patient did not general supervisor-message left, situation was explained to the mother( with welder apprentice arc miss goodson)-risks explained and advised that he needs to go to nearest emergency room for IV antibiotic and further management of above cellulitis. also told that we sent p.o. antibiotics to his pharmacy. Time Spent with Patient Time attestation: Total time spent providing and/or coordinating discharge services: Discharge coordination time: Greater than 30 minutes Quality: Stroke Does the patient have a stroke diagnosis?: No Physical Exam Vital Signs: Vital Signs: Last Vital Signs Temp 97.8 F 05/28/21 09:40 Pulse 74 05/28/21 15:58 Resp 20 05/28/21 15:58 BP 119/79 05/28/21 09:40 Pulse Ox 95 05/28/21 09:40 BMI result Body Mass Index 27.3 Patient Eloped DS: Data Data Completed and Pending Labs on day of discharge: Laboratory Results - last 24 hr 05/28/21 13:13 POC Glucose 167 H Preliminary micro results at discharge 05/28/21 03:51 Blood Culture - Preliminary Blood - Venous No growth after 24 hours. 05/28/21 01:42 Blood Culture - Preliminary Blood - Venous No growth after 24 hours. Additional Comments Additional comments: CT/CT elbow RT w con IMPRESSION: Subcutaneous edema along the dorsum of the elbow and proximal forearm. Fluid collection suspected in the associated subcutaneous tissues measuring approximately 3.3 x 0.5 x 4.4 cm, concerning for developing abscess in the proper clinical setting. Discharge Plan Discharge Patient Disposition: Left Against Medical Advice Discharge Diagnosis: olecrenon cellulitis Referrals: [facility] [Primary Care Provider] - 1 Week Discharge Medications: New doxycycline hyclate 100 mg capsule 100 mg PO BID Qty: 14 0RF amoxicillin-pot clavulanate [Augmentin] 500-125 mg tablet 1 tab PO BID Qty: 14 0RF Continued metformin 500 mg tablet 500 mg PO BID 0RF bupropion HCl 150 mg tablet sustained-release 12 hr 150 mg PO BID 0RF prednisone 10 mg tablet 10 mg PO DAILY 0RF atorvastatin 10 mg tablet 10 mg PO BEDTIME 0RF fluconazole 150 mg tablet 150 mg PO DAILY 0RF amlodipine 5 mg tablet 5 mg PO DAILY 0RF tramadol 50 mg tablet 50 mg PO Q6H PRN (Reason: severe pain) 0RF acetaminophen 650 mg tablet extended release 650 mg PO Q8H PRN (Reason: Pain) 0RF baclofen 20 mg tablet 20 mg PO TID PRN (Reason: muscle spasm) 0RF mirtazapine 30 mg tablet 15 mg PO BEDTIME 0RF lidocaine [Lidoderm] 5 % adhesive patch,medicated 1 patch topical DAILY 0RF zafirlukast 20 mg tablet 20 mg PO BID 0RF gabapentin 300 mg capsule 600 mg PO TID 0RF metoprolol succinate 25 mg tablet extended release 24 hr 25 mg PO DAILY 0RF albuterol sulfate [ProAir HFA] 90 mcg/actuation HFA aerosol inhaler 2 puff PO Q6H PRN (Reason: dyspnea) 0RF calcium carbonate-vitamin D3 [Oyster Shell Calcium-Vit D3] 500 mg-5 mcg (200 unit) tablet 1 tab PO BID 0RF budesonide-formoterol [Symbicort] 160-4.5 mcg/actuation HFA aerosol inhaler 2 puff PO BID 0RF cholecalciferol (vitamin D3) 50 mcg (2,000 unit) tablet 2,000 unit PO DAILY 0RF Spiriva Respimat 2.5 mcg/actuation mist 2 puff PO DAILY 0RF Combivent Respimat 20-100 mcg/actuation mist 1 puff PO QID 0RF Discharge Orders: Discharge Order (Routine); Ordered 05/29/21 Ordered By: Ynes Collado Diet: advance to usual diet Activity on Discharge: As tolerated Care Plan Goals: Patient came with right elbow olecranon cellulitis/concern developing abscess: Started on IV antibiotics, - left against medical advice yesterday, did not wait for position to see him, added p.o. antibiotics-sent to his pharmacy today. Called patient's phone number available in the chart and his mother: Patient did not general supervisor-message left, situation was explained to the mother-and advised that he needs to go to nearest emergency room for IV antibiotic and further management of above cellulitis. also told that we sent p.o. antibiotics to his pharmacy. Health Concerns: As above. Plan of Treatment: As above. Assessment: As above. Discharge Date/Time: 05/28/21 16:45
[2021-05-28] MEDS: Enoxaparin Sodium 40 MG/0.4 ML SYRINGE SUBCUT (11:44)
[2021-05-28] MEDS: Albuterol/Iprat 2.5/0.5MG 3 ML AMPUL.NEB INHALE ×2 (11:57→15:57)
--- NOTE | 2021-05-28 12:33 | PC.NURSE ---
this sports book writer assumed care of this pt at 1030. pt alert and oriented, vss, denies pain. meds given as documented. pt resting quietly, no complaints.
[2021-05-28 13:16] LABS: Glucose, Whole Blood 167 mg/dL (60-115)
--- NOTE | 2021-05-28 13:16 | PC.NURSE ---
sleeping and easily woken, declined lunch, poc 167 , insulin held
--- NOTE | 2021-05-28 15:22 | PM.EVENT ---
Event Note Date of Service: 05/28/21 Event Note: Patient was admitted for right cellulitis/abscess. Patient still has pain erythema and swelling in the olecranon area. Physical exam: Unchanged from H&P Assessment and plan: Continue IV antibiotics for cellulitis Seen by surgery: Recommended orthopedic consult which is added.
[2021-05-28] MEDS: Gabapentin 300 MG CAPSULE 600 MG PO (17:28)
--- NOTE | 2021-05-28 17:48 | PM.EVENT ---
Event Note Date of Service: 05/28/21 Event Note: Left AMA Patient asked the nurse to remove the IV line and he walked out of the unit without waiting to talk to the MD. reported to me around 1645.
== END 2021-05-28 16:45 | disposition left against medical advice (07) | DRG 383 ==
LOC: HO.ED 03:50 → HO.EDOVER 06:26
PROVIDERS: Admitting Provider Internal Medicine; Emergency Provider Emergency Medicine; Visit Provider Internal Medicine
DX: L02.413 Cutaneous abscess of right upper limb (principal); E11.9 Type 2 diabetes mellitus without complications; F17.210 Nicotine dependence, cigarettes, uncomplicated; L03.113 Cellulitis of right upper limb; I10 Essential (primary) hypertension; M70.21 Olecranon bursitis, right elbow; Z71.6 Tobacco abuse counseling; Z20.822 Contact with and (suspected) exposure to COVID-19; Z79.4 Long term (current) use of insulin; Z88.6 Allergy status to analgesic agent; Z79.52 Long term (current) use of systemic steroids; Z79.84 Long term (current) use of oral hypoglycemic drugs; Z79.899 Other long term (current) drug therapy
CPT/HCPCS: 36415; 73201; 80048; 80076; 82947; 83605; 84550; 85025; 85610; 85652; 86140; 87040; 87635; 94640; 96361; 96365; 96367; 96375; 99285; J1650; J2270; J2543; J3370; Q9967

== ENCOUNTER 2021-05-29 20:17 | Inpatient (IN) | payer MEDICAID, SELFPAY ==
[2021-05-29 20:20] VITALS: BP 155/89; PULSE 108; RESP 20; TEMP 36.7; O2SAT 97; BMI 27.3
[2021-05-29 20:31] LABS: MANUAL DIFF FLAG NO
[2021-05-29 20:40] LABS: Basophils Absolute Auto 0.1 X10*3/uL (0.0-0.2); Basophils Percent Auto 0.6 % (0-2); Eosinophils Absolute Auto 0.2 X10*3/uL (0.0-0.4); Eosinophils Percent Auto 1.2 % (0-4); Hematocrit 43.1 % (42.0-52.0); Hemoglobin 14.1 g/dl (14.0-18.0); Imm Gran Abs Auto 0.14 X10*3/uL (0.00-0.03); Imm Gran Pct Auto 0.8 % (0.0-0.4); Lymphocytes Absolute Auto 3.4 X10*3/uL (1.2-4.9); Lymphocytes Percent Auto 19.2 % (20-40); Mean Corpuscular HGB Conc 32.7 g/dl (31.0-36.0); Mean Corpuscular Hemoglobin 30.9 pg (27.0-33.0); Mean Corpuscular Volume 94.5 fL (80.0-98.0); Mean Platelet Volume 8.4 fL (9.4-12.4); Monocytes Absolute Auto 1.2 X10*3/uL (0.1-1.2); Monocytes Percent Auto 6.8 % (2-11); Neutrophils Absolute Auto 12.7 x10*3/uL (2.0-8.3); Neutrophils Percent Auto 71.4 % (45-73); Platelet Count 399 X10*3/uL (160-400); Red Blood Count 4.56 X10*6/uL (4.60-5.80); Red Cell Distribution Width 13.3 % (11.0-16.0); White Blood Count 17.8 X10*3/uL (4.8-10.8)
[2021-05-29 20:55] LABS: Anion Gap 15 (12-20); Blood Urea Nitrogen 13 mg/dL (9-16); Calcium 9.8 mg/dL (8.4-10.2); Carbon Dioxide 26 mmol/L (22-29); Chloride 101 mmol/L (96-108); Creatinine Clr Calc Pharmacy 99.5; Estimated Glomerular Filt Rate > 60; Glucose Random 200 mg/dL (60-115); Potassium 3.9 mmol/L (3.3-5.1); Sodium 138 mmol/L (135-145)
--- NOTE | 2021-05-29 21:24 | ED.SKABFB ---
HPI - Skin/Abscess/Foreign Bdy General Chief complaint: Skin/Abscess/Foreign Body Stated complaint: abscess? Time Seen by Provider: 05/29/21 20:46 Source: patient Mode of arrival: ambulatory Limitations: no limitations History of Present Illness HPI narrative: Patient comes to the emergency room for right elbow pain. Patient was admitted yesterday to the hospitalist service. Patient had a surgery consult, recommendations were to have orthopedics see the patient for possible I and D for a possible growing abscess in the olecranon bursa on the right elbow. Patient eloped from the hospital yesterday. Patient states that he is not doing well at home, has localized pain and is worsening. He still able to flex the elbow but is very painful. Patient denies fever or chills. Patient agrees to stay in the hospital the Related Data Home Medications Medication Instructions Recorded Confirmed acetaminophen 650 mg 650 mg PO Q8H PRN 05/28/21 05/29/21 tablet,extended release albuterol sulfate 90 mcg/actuation 2 puff PO Q6H PRN 05/28/21 05/29/21 aerosol inhaler (ProAir HFA) amlodipine 5 mg tablet 5 mg PO DAILY 05/28/21 05/29/21 atorvastatin 10 mg tablet 10 mg PO BEDTIME 05/28/21 05/29/21 baclofen 20 mg tablet 20 mg PO TID PRN 05/28/21 05/29/21 budesonide-formoterol HFA 160 2 puff PO BID 05/28/21 05/29/21 mcg-4.5 mcg/actuation aerosol inhaler (Symbicort) bupropion HCl 150 mg tablet,12 hr 150 mg PO BID 05/28/21 05/29/21 sustained-release calcium carbonate 500 mg-vitamin 1 tab PO BID 05/28/21 05/29/21 D3 5 mcg (200 unit) tablet (Oyster Shell Calcium-Vitamin D3) cholecalciferol (vitamin D3) 50 2,000 unit PO DAILY 05/28/21 05/29/21 mcg (2,000 unit) tablet gabapentin 300 mg capsule 600 mg PO TID 05/28/21 05/29/21 ipratropium 20 mcg-albuterol 100 1 puff PO QID 05/28/21 05/29/21 mcg/actuation mist for inhalation (Combivent Respimat) lidocaine 5 % topical patch 1 patch TOPICAL DAILY 05/28/21 05/29/21 (Lidoderm) metformin 500 mg tablet 500 mg PO BID 05/28/21 05/29/21 metoprolol succinate 25 mg 25 mg PO DAILY 05/28/21 05/29/21 tablet,extended release 24 hr mirtazapine 30 mg tablet 15 mg PO BEDTIME 05/28/21 05/29/21 prednisone 10 mg tablet 10 mg PO DAILY 05/28/21 05/29/21 tiotropium bromide 2.5 2 puff PO DAILY 05/28/21 05/29/21 mcg/actuation mist for inhalation (Spiriva Respimat) tramadol 50 mg tablet 50 mg PO Q6H PRN 05/28/21 05/29/21 zafirlukast 20 mg tablet 20 mg PO BID 05/28/21 05/29/21 Allergies Allergy/AdvReac Type Severity Reaction Status Date / Time ibuprofen [From Motrin] Allergy Rash Verified 05/28/21 01:12 Review of Systems Review of Systems: Constitutional : No Weight loss, No Fever, No Chills, No Night Sweats, No Fatigue, No Malaise ENT/Mouth : No Hearing loss, No Ear Pain, No Nasal Congestion, No Sinus Pain, No Hoarseness, No sore throat, No Rhinorrhea, No Swallowing Difficulty Eyes: No Eye Pain, No Swelling, No Redness, No Foreign Body, No Discharge, No Vision Changes Cardiovascular : No Chest Pain, No SOB, No Dyspnea on Exertion, No Orthopnea, No Edema, No Palpitations Respiratory : No Cough, No Sputum, No Wheezing, No Smoke Exposure, No Dyspnea Gastrointestinal : No Nausea, No Vomiting, No Diarrhea, No Constipation, No abdominal Pain, No Hematochezia, No Melena Genitourinary : no irregular bleeding, No Dysuria, No Urinary Frequency, No Hematuria, No Urinary Incontinence, No Urgency, No Flank Pain, No Urinary Flow Changes, No Hesitancy Musculoskeletal : Patient complaining of right arm pain from the elbow to the wrist. Erythema, pain in the elbow. Skin : No Skin Lesions, No rash, redness in the right forearm the ulnar aspect Neuro : No Weakness, No Numbness, No Paresthesias, No Loss of Consciousness, No Dizziness, No Headache Psych : No Anxiety/Panic, No Depression, No SI/HI/AH/VH, No Social Issues, Heme/Lymph: No Bruising, No Bleeding,No Lymphadenopathy Endocrine : No Polyuria, No Polydipsia, No Temperature Intolerance [facility] Past Medical History Medical History Anxiety and depression Arthritis Asthma Asthma-COPD overlap syndrome Back pain Chronic abdominal pain COPD (chronic obstructive pulmonary disease) Elevated cholesterol GERD (gastroesophageal reflux disease) History of kidney stones HTN (hypertension) Irritable bowel syndrome Osteoporosis Tobacco dependence Tubular adenoma of colon Surgical History Carpal tunnel syndrome (~08/2014) H/O wrist surgery History of hydrocelectomy Hx of colonoscopy S/P carpal tunnel release S/P extracorporeal shock wave therapy Shoulder symptoms with history of shoulder arthroplasty Status post hip surgery Family History Family History Father No problems noted. Mother No problems noted. Son No problems noted. Daughter No problems noted. Social History Social History Alcohol intake: current Alcohol intake frequency: does not drink Patient Tobacco Use Status: Current everyday Tobacco user Cigarette Packs Per Day: 0.5 Cigarettes Per Day: 10.0 Years Smoked: 18 Second Hand Smoke Exposure: No Advance Directives: No Advance Directives Information Provided: Yes Physical Exam Vital Signs: Vital Signs: Last Vital Signs Temp 98.1 F 05/29/21 20:20 Pulse 108 H 05/29/21 20:20 Resp 20 05/29/21 20:20 BP 155/89 H 05/29/21 20:20 Pulse Ox 97 05/29/21 20:20 BMI result Body Mass Index 27.3 Const: Other: Appearance: Alert. Oriented X3. No acute distress. Eyes: Pupils equal, round and reactive to light. ENT: Pharynx normal. Neck: Normal inspection. Neck supple. No lymph nodes noted. No crepitus CVS: Normal heart rate and rhythm. Pulses normal. Normal S1 and S2 Respiratory: No respiratory distress. Breath sounds normal. No Wheezing. No rales Abdomen: Soft and nontender. No rigidity. No distention. Skin: Skin warm and dry. Normal skin color. Normal skin turgor. Extremities: Erythema and swelling around the right olecranon, erythema running down the ulnar aspect from the elbow down to the wrist. Patient is able to flex and extend elbow but with pain. Neuro: Oriented X 3. No motor deficit. No sensory deficit. Moving all extremities. No slurred speech. CN 2 through 12 grossly intact Psych: calm, cooperative, normal affect Course Course Course Narrative: Patient needs orthopedics consult. patient may need surgical I & D. patient agrees to stay in the hospital this time. I discussed the patient with Dr. Krishna, patient being admitted MDM - Skin/Abscess/Foreign Bdy Lab Data Result diagrams: 05/29/21 20:27 05/29/21 20:27 Labs: Lab Results 05/29/21 05/29/21 Range/Units 20:27 20:27 WBC 17.8 H (4.8-10.8) X10*3/uL RBC 4.56 L (4.60-5.80) X10*6/uL Hgb 14.1 (14.0-18.0) g/dl Hct 43.1 (42.0-52.0) % MCV 94.5 (80.0-98.0) fL MCH 30.9 (27.0-33.0) pg MCHC 32.7 (31.0-36.0) g/dl RDW 13.3 (11.0-16.0) % Plt Count 399 (160-400) X10*3/uL MPV 8.4 L (9.4-12.4) fL Immature Gran % (Auto) 0.8 H (0.0-0.4) % Neut % (Auto) 71.4 (45-73) % Lymph % (Auto) 19.2 L (20-40) % Divide % (Auto) 6.8 (2-11) % Eos % (Auto) 1.2 (0-4) % Baso % (Auto) 0.6 (0-2) % Lymph # (Auto) 3.4 (1.2-4.9) X10*3/uL Divide # (Auto) 1.2 (0.1-1.2) X10*3/uL Eos # (Auto) 0.2 (0.0-0.4) X10*3/uL Baso # (Auto) 0.1 (0.0-0.2) X10*3/uL Abs Immat Gran (auto) 0.14 H (0.00-0.03) X10*3/uL Absolute Neuts (auto) 12.7 H (2.0-8.3) x10*3/uL Absolute Nucleated RBC 0.000 (0.0-0.012) X10*3/uL Nucleated RBC % (auto) 0.0 (0.0-0.2) /100WBC Sodium 138 (135-145) mmol/L Potassium 3.9 (3.3-5.1) mmol/L Chloride 101 (96-108) mmol/L Carbon Dioxide 26 (22-29) mmol/L Anion Gap 15 (12-20) BUN 13 (9-16) mg/dL Creatinine 0.83 (0.5-1.4) mg/dL Estim Creat Clear Calc 99.5 Estimated GFR > 60 Random Glucose 200 H D (60-115) mg/dL Calcium 9.8 (8.4-10.2) mg/dL Discharge Plan Discharge Clinical Impression: Cellulitis and abscess of upper extremity Patient Disposition: Admitted As Inpatient
[2021-05-29 22:24] LABS: Erythrocyte Sedimentation Rate 18 MM/HR (0-15)
--- NOTE | 2021-05-29 22:24 | PM.IMHP ---
History of Present Illness Date of Service: 05/29/21 Chief Complaint: elbow pain 51-year-old male with past medical history of /COPD overlap syndrome, hyperlipidemia, hypertension, IBS who initially presented to the hospital on 05/28 with elbow cellulitis/abscess formation, that time patient was on antibiotics, and was scheduled to be seen by Orthopedic surgery for possible abscess drainage but patient eloped. He returns today stating that he still has significant pain and is worried that he might lose his elbow. He reports that he left the hospital because he was in lot of pain and his pain was not being well treated. Patient reports that he did not order picker his p.o. antibiotics and he continued to have significant 8/10 pain in the elbow, redness, and swelling. He denies all other review of system. Including no headache, change in vision, no chest pain, no abdominal pain nausea or vomiting, no diarrhea constipation, no urinary symptoms and no lower extremity edema. No shortness of breath fever chills. On arrival to the ED patient hemodynamically stable with no significant abnormal vitals Labs are significant for WBC count of 17.8, CRP of 1.23, COVID-19 positive- was negative on the patient will be admitted for further management Review of Systems Review of Systems: Yes all other systems are reviewed and are negative [facility] Medical History Anxiety and depression Arthritis Asthma Asthma-COPD overlap syndrome Back pain Chronic abdominal pain COPD (chronic obstructive pulmonary disease) Elevated cholesterol GERD (gastroesophageal reflux disease) History of kidney stones HTN (hypertension) Irritable bowel syndrome Osteoporosis Tobacco dependence Tubular adenoma of colon Family History Father No problems noted. Mother No problems noted. Son No problems noted. Daughter No problems noted. Surgical History Carpal tunnel syndrome (~08/2014) H/O wrist surgery History of hydrocelectomy Hx of colonoscopy S/P carpal tunnel release S/P extracorporeal shock wave therapy Shoulder symptoms with history of shoulder arthroplasty Status post hip surgery Social History Alcohol intake: current Alcohol intake frequency: does not drink Patient Tobacco Use Status: Current everyday Tobacco user Cigarette Packs Per Day: 0.5 Cigarettes Per Day: 10.0 Years Smoked: 18 Second Hand Smoke Exposure: No Advance Directives: No Advance Directives Information Provided: Yes Meds Allergies Allergy/AdvReac Type Severity Reaction Status Date / Time ibuprofen [From Motrin] Allergy Rash Verified 05/28/21 01:12 Active Medications: Current Medications Acetaminophen (Acetaminophen 325 Mg Tablet) 650 mg PO Q6H PRN PRN Reason: Pain, Mild (Pain Scale 1-3) Albuterol Sulfate (Albuterol Sulfate 90 Mcg 8 Gm Inhaler) 2 puff INHALE Q6H PRN PRN Reason: dyspnea Albuterol/Ipratropium (Albuterol/Iprat 2.5/0.5mg 3 Ml Ampul.Neb) 3 ml INHALE RQID [facility] Amlodipine Besylate (Amlodipine Besylate 5 Mg Tablet) 5 mg PO DAILY RAHEL; Protocol Atorvastatin Calcium (Atorvastatin Calcium 10 Mg Tablet) 10 mg PO BEDTIME RAHEL Baclofen (Baclofen 20 Mg Tablet) 20 mg PO TID PRN PRN Reason: muscle spasm Bupropion HCl (Bupropion Hcl Xl 300 Mg Tab.Er.24h) 300 mg PO DAILY [facility] Calcium Carbonate/Cholecalciferol (Calcium + Vitamin D 250 Mg Tablet) 500 mg PO BID [facility] Dextrose (Dextrose 50 % 25 Gm/50 Ml Vial) 25 gm IVPUSH Q15M PRN; Protocol PRN Reason: per Hypoglycemia Standing Ord. Docusate Sodium (Docusate Sodium 100 Mg Capsule) 100 mg PO DAILY PRN PRN Reason: Constipation Enoxaparin Sodium (Enoxaparin Sodium 40 Mg/0.4 Ml Syringe) 40 mg SUBCUT Q24H [facility] Fluticasone/Vilanterol (Fluticasone/Vilanterol 200/25 Blst.W.Dev) 1 puff INHALE RDAILY [facility] Gabapentin (Gabapentin 300 Mg Capsule) 600 mg PO TID [facility] Glucose (Glucose Gel 15 Gm Gel..Gram.) 15 gm PO Q15M PRN; Protocol PRN Reason: per Hypoglycemia Standing Ord. Piperacillin Sod/Tazobactam (Sod 3.375 gm/ Sodium Chloride) 50 mls @ 100 mls/hr IV Q6H [facility] Vancomycin HCl 1,500 mg/ (Sodium Chloride) 500 mls @ 333.333 mls/hr IV ONCE ONE Stop: 05/30/21 01:29 Vancomycin HCl 1,000 mg/ (Sodium Chloride) 270 mls @ 270 mls/hr IV Q12H [facility] Insulin Human Lispro (Insulin Lispro 100 Unit/Ml 3 Ml Vial) 0 unit SUBCUT QIDACHS [facility]; Protocol Lidocaine (Lidocaine 4 % Patch Adh..Patch) 1 patch TRANSDERMA DAILY [facility] Metoprolol Succinate (Metoprolol Succinate Er 25 Mg Tab.Er.24h) 25 mg PO DAILY [facility]; Protocol Mirtazapine (Mirtazapine 15 Mg Tablet) 15 mg PO BEDTIME [facility] Montelukast Sodium (Montelukast Sodium 10 Mg Tablet) 10 mg PO BEDTIME [facility] Morphine Sulfate (Morphine Sulfate 4 Mg/Ml Cartridge) 4 mg IVPUSH Q4H PRN; Protocol PRN Reason: Pain, Severe (Pain Scale 7-10) Ondansetron HCl (Ondansetron Hcl 4 Mg/2 Ml Vial) 4 mg IVPUSH Q8H PRN PRN Reason: Nausea and Vomiting Pharmacy Consult (Consult Rx Perform Med Rec) 1 each MISCELLANE ONCE PRN PRN Reason: Consult order Pharmacy Consult (Consult Rx Vancomycin Dosing) 1 each MISCELLANE DAILY PRN PRN Reason: Consult order Prednisone (Prednisone 10 Mg Tablet) 10 mg PO DAILY [facility] Sodium Chloride (0.9 % Sodium Chloride Flush 3 Ml Syringe) 3 ml IVFLUSH QSHIFT [facility] Tiotropium Seymour (Tiotropium Seymour 18 Mcg Cap.W.Dev) 2 puff INHALE RDAILY [facility] Tramadol HCl (Tramadol Hcl 50 Mg Tablet) 50 mg PO Q6H PRN PRN Reason: severe pain Vitamin D (Cholecalciferol (Vitamin D3) 25 Mcg Tablet) 50 mcg PO DAILY [facility] Home Medications Medication Instructions Recorded Confirmed Last Taken Type acetaminophen 650 mg 650 mg PO Q8H PRN 05/28/21 05/29/21 Unknown History tablet,extended release albuterol sulfate 90 mcg/actuation 2 puff PO Q6H PRN 05/28/21 05/29/21 Unknown History aerosol inhaler (ProAir HFA) amlodipine 5 mg tablet 5 mg PO DAILY 05/28/21 05/29/21 Unknown History atorvastatin 10 mg tablet 10 mg PO BEDTIME 05/28/21 05/29/21 Unknown History baclofen 20 mg tablet 20 mg PO TID PRN 05/28/21 05/29/21 Unknown History budesonide-formoterol HFA 160 2 puff PO BID 05/28/21 05/29/21 Unknown History mcg-4.5 mcg/actuation aerosol inhaler (Symbicort) bupropion HCl 150 mg tablet,12 hr 150 mg PO BID 05/28/21 05/29/21 Unknown History sustained-release calcium carbonate 500 mg-vitamin 1 tab PO BID 05/28/21 05/29/21 Unknown History D3 5 mcg (200 unit) tablet (Oyster Shell Calcium-Vitamin D3) cholecalciferol (vitamin D3) 50 2,000 unit PO DAILY 05/28/21 05/29/21 Unknown History mcg (2,000 unit) tablet gabapentin 300 mg capsule 600 mg PO TID 05/28/21 05/29/21 Unknown History ipratropium 20 mcg-albuterol 100 1 puff PO QID 05/28/21 05/29/21 Unknown History mcg/actuation mist for inhalation (Combivent Respimat) lidocaine 5 % topical patch 1 patch TOPICAL DAILY 05/28/21 05/29/21 Unknown History (Lidoderm) metformin 500 mg tablet 500 mg PO BID 05/28/21 05/29/21 Unknown History metoprolol succinate 25 mg 25 mg PO DAILY 05/28/21 05/29/21 Unknown History tablet,extended release 24 hr mirtazapine 30 mg tablet 15 mg PO BEDTIME 05/28/21 05/29/21 Unknown History prednisone 10 mg tablet 10 mg PO DAILY 05/28/21 05/29/21 Unknown History tiotropium bromide 2.5 2 puff PO DAILY 05/28/21 05/29/21 Unknown History mcg/actuation mist for inhalation (Spiriva Respimat) tramadol 50 mg tablet 50 mg PO Q6H PRN 05/28/21 05/29/21 Unknown History zafirlukast 20 mg tablet 20 mg PO BID 05/28/21 05/29/21 Unknown History Physical Exam Vital Signs and Narrative: Vital Signs: Last Vital Signs Temp 98.1 F 05/29/21 20:20 Pulse 108 H 05/29/21 20:20 Resp 20 05/29/21 20:20 BP 155/89 H 05/29/21 20:20 Pulse Ox 97 05/29/21 20:20 BMI result Body Mass Index 27.3 Const: General: cooperative and no acute distress Orientation/consciousness: patient oriented x3 Eyes: General: appearance normal, both eyes and all related structures Pupils: Equal, round and reactive pupils present Resp: Effort & Inspection: normal respiratory effort Auscultation: clear to auscultation bilaterally Cardio: Rate: regular rate Rhythm: regular rhythm GI: Palpation (GI): Soft to palpation Auscultation: normal bowel sounds Skin: General skin exam: no rashes or lesions noted Neuro: General: patient oriented x3 Cranial nerves: Yes Equal, round and reactive pupils present Cognition (Neuro): normal cognition Extrem: Other: mild erythema, tenderness, mild swelling along the medial aspect of left elbow extending to the med for are I have seen the patient on 05/28 and examined him, erythema and edema appears to have improved General: Yes no pedal edema Results Labs CBC and Chem 7: 05/29/21 20:27 05/29/21 20:27 Labs: Laboratory Results - last 24 hr 05/29/21 05/29/21 05/29/21 20:27 20:27 20:27 MCV 94.5 MCH 30.9 MCHC 32.7 RDW 13.3 Plt Count 399 MPV 8.4 L Immature Gran % (Auto) 0.8 H Neut % (Auto) 71.4 Lymph % (Auto) 19.2 L Porter % (Auto) 6.8 Eos % (Auto) 1.2 Baso % (Auto) 0.6 Lymph # (Auto) 3.4 Porter # (Auto) 1.2 Eos # (Auto) 0.2 Baso # (Auto) 0.1 Abs Immat Gran (auto) 0.14 H Absolute Neuts (auto) 12.7 H Absolute Nucleated RBC 0.000 Nucleated RBC % (auto) 0.0 ESR 18 H Anion Gap 15 Estim Creat Clear Calc 99.5 Estimated GFR > 60 Random Glucose 200 H D Calcium 9.8 Assessment and Plan (1) Cellulitis and abscess of upper extremity: Status: Acute (2) Olecranon bursitis of right elbow: Status: Acute (3) COVID-19: Status: Acute Plan 61-year-old male with past medical history as mentioned above presents to the hospital with complaints of continuing pain and swelling of his right elbow # cellulitis and abscess of all olecranon process - leukocytosis, afebrile - patient was evaluated by surgery and previous visit who recommended consulting orthopedic surgery - will consult orthopedic surgery, continue IV antibiotics - follow blood cultures # COVID-19 infection - patient states vaccinated x2 - no respiratory symptoms - monitor - of note patient was negative on 05/28 #? history of diabetes -? will place on low-dose sliding scale insulin -? diabetic diet #? COPD/ashtma overlap syndrome -? not in exacerbation -? continue inhalers DVT prophylaxis: Lovenox given abscess, cellulitis, and need for possible drainage patient will need admitted for further evaluation Quality Stroke Does the patient have a stroke diagnosis?: No VTE Prior VTE?: No VTE Risk Level:: Medical - moderate - high VTE Device Contraindication: Treatment Not Indicated VTE Drug Contraindication: N/A - Med Ordered
[2021-05-29 22:43] LABS: Lactic Acid 1.7 mmol/L (0.5-2.0)
[2021-05-29 22:46] LABS: C Reactive Protein 1.23 mg/dL (< or = 0.50)
[2021-05-29 22:58] LABS: Amphetamine Screen Urine Not Detected (Not Detect); Barbiturates, Urine Not Detected (Not Detect); Benzodiazepines Screen Urine Not Detected (Not Detect); Cannabinoid Screen Urine Not Detected (Not Detect); Cocaine Screen Urine Not Detected (Not Detect); Fentanyl, urine Not Detected (Not Detect); Opiate Screen Urine Not Detected (Not Detect); Phencyclidine Screen Urine Not Detected (Not Detect)
[2021-05-29] MEDS: Piperacillin Sodium/Tazobactam 3.375 GM in 0.9 % Sodium Chloride 50 ML IV (23:11)
[2021-05-29] MEDS: 0.9 % Sodium Chloride 1,000 ML 999 ML IVCONT (23:11)
[2021-05-29] MEDS: Enoxaparin Sodium 40 MG/0.4 ML SYRINGE SUBCUT (23:12)
[2021-05-29] MEDS: Ketorolac Tromethamine 30 MG/ML VIAL IVPUSH (23:15)
[2021-05-29 23:43] LABS: COVID-19 Test Positive (Negative)
[2021-05-30] MEDS: vancomycin HCL 1,500 MG in 0.9 % Sodium Chloride 500 ML 333.33 MG IV (00:26)
[2021-05-30] MEDS: 0.9 % Sodium Chloride Flush 3 ML SYRINGE IVFLUSH ×2 (00:31→09:35)
[2021-05-30 06:04] VITALS: BP 134/72; PULSE 76; RESP 12; TEMP 36.6; O2SAT 92
[2021-05-30] MEDS: Piperacillin Sodium/Tazobactam 3.375 GM in 0.9 % Sodium Chloride 50 ML IV ×3 (06:13→18:24)
[2021-05-30 06:30] LABS: MANUAL DIFF FLAG NO
[2021-05-30 06:51] LABS: Anion Gap 12 (12-20); Blood Urea Nitrogen 16 mg/dL (9-16); Calcium 8.7 mg/dL (8.4-10.2); Carbon Dioxide 27 mmol/L (22-29); Chloride 107 mmol/L (96-108); Creatinine Clr Calc Pharmacy 98.3; Estimated Glomerular Filt Rate > 60; Glucose Random 269 mg/dL (60-115); Potassium 4.7 mmol/L (3.3-5.1); Sodium 141 mmol/L (135-145)
[2021-05-30 06:54] LABS: Basophils Absolute Auto 0.1 X10*3/uL (0.0-0.2); Basophils Percent Auto 0.7 % (0-2); Eosinophils Absolute Auto 0.3 X10*3/uL (0.0-0.4); Eosinophils Percent Auto 2.4 % (0-4); Hematocrit 41.4 % (42.0-52.0); Hemoglobin 12.9 g/dl (14.0-18.0); Imm Gran Abs Auto 0.15 X10*3/uL (0.00-0.03); Imm Gran Pct Auto 1.1 % (0.0-0.4); Lymphocytes Absolute Auto 4.1 X10*3/uL (1.2-4.9); Lymphocytes Percent Auto 30.3 % (20-40); Mean Corpuscular HGB Conc 31.2 g/dl (31.0-36.0); Mean Corpuscular Hemoglobin 30.1 pg (27.0-33.0); Mean Corpuscular Volume 96.5 fL (80.0-98.0); Mean Platelet Volume 8.5 fL (9.4-12.4); Monocytes Absolute Auto 1.4 X10*3/uL (0.1-1.2); Monocytes Percent Auto 10.1 % (2-11); Neutrophils Absolute Auto 7.5 x10*3/uL (2.0-8.3); Neutrophils Percent Auto 55.4 % (45-73); Platelet Count 371 X10*3/uL (160-400); Red Blood Count 4.29 X10*6/uL (4.60-5.80); Red Cell Distribution Width 13.5 % (11.0-16.0); White Blood Count 13.5 X10*3/uL (4.8-10.8)
[2021-05-30 07:18] LABS: Glucose, Whole Blood 225 mg/dL (60-115)
[2021-05-30] MEDS: Insulin Lispro 100 UNIT/ML 3 ML VIAL SUBCUT ×3 (07:31→18:23)
--- NOTE | 2021-05-30 07:47 | P.PNIM_ITS ---
Subjective Subjective Date of Service: 05/31/21 Interval History: Right elbow cellulitis/abscess Review of Systems Still has right elbow pain Physical Exam Vital Signs: Vital Signs: Last Vital Signs Temp 97.9 F 05/30/21 06:04 Pulse 76 05/30/21 06:04 Resp 12 05/30/21 06:04 BP 134/72 05/30/21 06:04 Pulse Ox 92 05/30/21 06:04 BMI result Body Mass Index 27.3 Appearance: Alert.? Oriented X3.? not in distress.? Eyes: Pupils equal, round and reactive to light.? Sclera nonicteric.? ENT: Pharynx normal.? Moist mucous membranes. cvs: rrr, [id number] , no murmur res: air entry diminshed ,wheezing abd: no rebound or guarding ,nt, bs present. ext pulses present , no cyanosis . right elbow: right cellulitis/abscess-has pain and swelling in the olecranon area( more solid sensation). neuro: axo3 , nonfocal. Objective Data Active Medications Acetaminophen (Acetaminophen 325 Mg Tablet) 650 mg PO Q6H PRN PRN Reason: Pain, Mild (Pain Scale 1-3) Albuterol Sulfate (Albuterol Sulfate 90 Mcg 8 Gm Inhaler) 2 puff INHALE Q6H PRN PRN Reason: dyspnea Albuterol/Ipratropium (Albuterol/Iprat 2.5/0.5mg 3 Ml Ampul.Neb) 3 ml INHALE RQID [facility] Amlodipine Besylate (Amlodipine Besylate 5 Mg Tablet) 5 mg PO DAILY [facility]; Protocol Atorvastatin Calcium (Atorvastatin Calcium 10 Mg Tablet) 10 mg PO BEDTIME [facility] Baclofen (Baclofen 20 Mg Tablet) 20 mg PO TID PRN PRN Reason: muscle spasm Bupropion HCl (Bupropion Hcl Xl 300 Mg Tab.Er.24h) 300 mg PO DAILY [facility] Calcium Carbonate/Cholecalciferol (Calcium + Vitamin D 250 Mg Tablet) 500 mg PO BID [facility] Dextrose (Dextrose 50 % 25 Gm/50 Ml Vial) 25 gm IVPUSH Q15M PRN; Protocol PRN Reason: per Hypoglycemia Standing Ord. Docusate Sodium (Docusate Sodium 100 Mg Capsule) 100 mg PO DAILY PRN PRN Reason: Constipation Enoxaparin Sodium (Enoxaparin Sodium 40 Mg/0.4 Ml Syringe) 40 mg SUBCUT Q24H [facility] Last Admin: 05/29/21 23:12 Dose: 40 mg Documented by: MIKHAIL Fluticasone/Vilanterol (Fluticasone/Vilanterol 200/25 Blst.W.Dev) 1 puff INHALE RDAILY [facility] Gabapentin (Gabapentin 300 Mg Capsule) 600 mg PO TID [facility] Glucose (Glucose Gel 15 Gm Gel..Gram.) 15 gm PO Q15M PRN; Protocol PRN Reason: per Hypoglycemia Standing Ord. Piperacillin Sod/Tazobactam (Sod 3.375 gm/ Sodium Chloride) 50 mls @ 100 mls/hr IV Q6H [facility] Last Infusion: 05/30/21 07:07 Dose: 0 mls/hr Documented by: FRANKIE Vancomycin HCl 1,000 mg/ (Sodium Chloride) 270 mls @ 270 mls/hr IV Q12H [facility] Insulin Human Lispro (Insulin Lispro 100 Unit/Ml 3 Ml Vial) 0 unit SUBCUT QIDACHS [facility]; Protocol Last Admin: 05/30/21 07:31 Dose: 4 unit Documented by: FRANKIE Lidocaine (Lidocaine 4 % Patch Adh..Patch) 1 patch TRANSDERMA DAILY [facility] Metoprolol Succinate (Metoprolol Succinate Er 25 Mg Tab.Er.24h) 25 mg PO DAILY [facility]; Protocol Mirtazapine (Mirtazapine 15 Mg Tablet) 15 mg PO BEDTIME [facility] Montelukast Sodium (Montelukast Sodium 10 Mg Tablet) 10 mg PO BEDTIME [facility] Morphine Sulfate (Morphine Sulfate 4 Mg/Ml Cartridge) 4 mg IVPUSH Q4H PRN; Protocol PRN Reason: Pain, Severe (Pain Scale 7-10) Ondansetron HCl (Ondansetron Hcl 4 Mg/2 Ml Vial) 4 mg IVPUSH Q8H PRN PRN Reason: Nausea and Vomiting Pharmacy Consult (Consult Rx Perform Med Rec) 1 each MISCELLANE ONCE PRN PRN Reason: Consult order Pharmacy Consult (Consult Rx Vancomycin Dosing) 1 each MISCELLANE DAILY PRN PRN Reason: Consult order Prednisone (Prednisone 10 Mg Tablet) 10 mg PO DAILY [facility] Sodium Chloride (0.9 % Sodium Chloride Flush 3 Ml Syringe) 3 ml IVFLUSH QSHIFT [facility] Last Admin: 05/30/21 00:31 Dose: 3 ml Documented by: MIKHAIL Tiotropium [place] (Tiotropium [place] 18 Mcg Cap.W.Dev) 2 puff INHALE RDAILY [facility] Tramadol HCl (Tramadol Hcl 50 Mg Tablet) 50 mg PO Q6H PRN PRN Reason: severe pain Vitamin D (Cholecalciferol (Vitamin D3) 25 Mcg Tablet) 50 mcg PO DAILY [facility] Labs CBC & Chem 7: 05/31/21 06:08 05/31/21 06:08 Labs: Laboratory Results - last 24 hr 05/29/21 05/29/21 05/29/21 20:27 20:27 20:27 MCV 94.5 MCH 30.9 MCHC 32.7 RDW 13.3 Plt Count 399 MPV 8.4 L Immature Gran % (Auto) 0.8 H Neut % (Auto) 71.4 Lymph % (Auto) 19.2 L Dillon % (Auto) 6.8 Eos % (Auto) 1.2 Baso % (Auto) 0.6 Lymph # (Auto) 3.4 Dillon # (Auto) 1.2 Eos # (Auto) 0.2 Baso # (Auto) 0.1 Abs Immat Gran (auto) 0.14 H Absolute Neuts (auto) 12.7 H Absolute Nucleated RBC 0.000 Nucleated RBC % (auto) 0.0 ESR 18 H Anion Gap 15 Estim Creat Clear Calc 99.5 Estimated GFR > 60 POC Glucose Random Glucose 200 H D Lactic Acid Calcium 9.8 C-Reactive Protein Urine Opiates Screen Urine Fentanyl Screen Ur Barbiturates Screen Ur Phencyclidine Scrn Ur Amphetamines Screen U Benzodiazepines Scrn Urine Cocaine Screen U Marijuana (THC) Screen COVID-19 ([facility]) COVID-19 Clin Com 05/29/21 05/29/21 05/29/21 22:21 22:22 22:38 MCV MCH MCHC RDW Plt Count MPV Immature Gran % (Auto) Neut % (Auto) Lymph % (Auto) Dillon % (Auto) Eos % (Auto) Baso % (Auto) Lymph # (Auto) Dillon # (Auto) Eos # (Auto) Baso # (Auto) Abs Immat Gran (auto) Absolute Neuts (auto) Absolute Nucleated RBC Nucleated RBC % (auto) ESR Anion Gap Estim Creat Clear Calc Estimated GFR POC Glucose Random Glucose Lactic Acid 1.7 Calcium C-Reactive Protein 1.23 H Urine Opiates Screen Not Detected Urine Fentanyl Screen Not Detected Ur Barbiturates Screen Not Detected Ur Phencyclidine Scrn Not Detected Ur Amphetamines Screen Not Detected U Benzodiazepines Scrn Not Detected Urine Cocaine Screen Not Detected U Marijuana (THC) Screen Not Detected COVID-19 ([facility]) COVID-19 Clin Com 05/29/21 05/30/21 05/30/21 23:20 06:25 06:25 MCV 96.5 MCH 30.1 MCHC 31.2 RDW 13.5 Plt Count 371 MPV 8.5 L Immature Gran % (Auto) 1.1 H Neut % (Auto) 55.4 Lymph % (Auto) 30.3 Dillon % (Auto) 10.1 Eos % (Auto) 2.4 Baso % (Auto) 0.7 Lymph # (Auto) 4.1 Dillon # (Auto) 1.4 H Eos # (Auto) 0.3 Baso # (Auto) 0.1 Abs Immat Gran (auto) 0.15 H Absolute Neuts (auto) 7.5 Absolute Nucleated RBC 0.000 Nucleated RBC % (auto) 0.0 ESR Anion Gap 12 Estim Creat Clear Calc 98.3 Estimated GFR > 60 POC Glucose Random Glucose 269 H Lactic Acid Calcium 8.7 D C-Reactive Protein Urine Opiates Screen Urine Fentanyl Screen Ur Barbiturates Screen Ur Phencyclidine Scrn Ur Amphetamines Screen U Benzodiazepines Scrn Urine Cocaine Screen U Marijuana (THC) Screen COVID-19 ([facility]) Positive A COVID-19 Clin Com See Note 05/30/21 07:14 MCV MCH MCHC RDW Plt Count MPV Immature Gran % (Auto) Neut % (Auto) Lymph % (Auto) Dillon % (Auto) Eos % (Auto) Baso % (Auto) Lymph # (Auto) Dillon # (Auto) Eos # (Auto) Baso # (Auto) Abs Immat Gran (auto) Absolute Neuts (auto) Absolute Nucleated RBC Nucleated RBC % (auto) ESR Anion Gap Estim Creat Clear Calc Estimated GFR POC Glucose 225 H Random Glucose Lactic Acid Calcium C-Reactive Protein Urine Opiates Screen Urine Fentanyl Screen Ur Barbiturates Screen Ur Phencyclidine Scrn Ur Amphetamines Screen U Benzodiazepines Scrn Urine Cocaine Screen U Marijuana (THC) Screen COVID-19 ([facility]) COVID-19 Clin Com Assessment and Plan (1) Cellulitis and abscess of upper extremity: Status: Acute (2) COPD (chronic obstructive pulmonary disease): Status: Acute Plan 61-year-old male with past medical history as mentioned above presents to the hospital with complaints of continuing pain and swelling of his right elbow 1.? cellulitis and abscess of all? olecranon? process has ? leukocytosis, afebrile -? patient was evaluated by surgery and previous visit who recommended consulting orthopedic surgery orthopedic surgery-recomended to moniter and continue IV antibiotics, follow blood cultures Gamal gonzáles 2.? COVID-19 infection -? patient states vaccinated. -? of note patient was negative on 05/28 currently on steriods possible has copd excerebation moniter respiratory status. 3.? history of diabetes -? will place on low-dose sliding scale insulin -? diabetic diet 4. COPD execerebation/ashtma overlap syndrome: has sob /wheezing added nebs , steriods ?DVT prophylaxis: Lovenox patient is inpatient-Patient has right elbow cellulitis/possible abscess-on IV antibiotic, also COPD exacerbation Quality Stroke Does the patient have a stroke diagnosis?: No VTE Prior VTE?: No VTE Risk Level:: Medical - moderate - high VTE Device Contraindication: Treatment Not Indicated VTE Drug Contraindication: N/A - Med Ordered
--- NOTE | 2021-05-30 08:40 | PM.CNOR ---
History of Present Illness HPI Consult date: 05/30/21 Chief complaint: Cellulitis, abscess Narrative: This is a 51-year-old gentleman who presents to the emergency department for right elbow pain. About 5 days ago he noticed some pain and swelling in the elbow which was worsening therefore he presented to the emergency department. Initially he came in was admitted to the medical service and started on IV antibiotics in the knee lobe. He returned last night and also tested positive for COVID he does not have any respiratory symptoms. He was again admitted to the hospital for IV antibiotics and Orthopedics was consulted. Review of Systems Review of Systems: per [facility] Past Medical History Medical History Anxiety and depression Arthritis Asthma Asthma-COPD overlap syndrome Back pain Chronic abdominal pain COPD (chronic obstructive pulmonary disease) Elevated cholesterol GERD (gastroesophageal reflux disease) History of kidney stones HTN (hypertension) Irritable bowel syndrome Osteoporosis Tobacco dependence Tubular adenoma of colon Family History Family History Father No problems noted. Mother No problems noted. Son No problems noted. Daughter No problems noted. Surgical History Surgical History Carpal tunnel syndrome (~08/2014) H/O wrist surgery History of hydrocelectomy Hx of colonoscopy S/P carpal tunnel release S/P extracorporeal shock wave therapy Shoulder symptoms with history of shoulder arthroplasty Status post hip surgery Social History Social History Alcohol intake: current Alcohol intake frequency: does not drink Patient Tobacco Use Status: Current everyday Tobacco user Cigarette Packs Per Day: 0.5 Cigarettes Per Day: 10.0 Years Smoked: 18 Second Hand Smoke Exposure: No Advance Directives: No Advance Directives Information Provided: Yes Meds Allergies Allergy/AdvReac Type Severity Reaction Status Date / Time ibuprofen [From Motrin] Allergy Rash Verified 05/28/21 01:12 Active Medications: Current Medications Acetaminophen (Acetaminophen 325 Mg Tablet) 650 mg PO Q6H PRN PRN Reason: Pain, Mild (Pain Scale 1-3) Albuterol Sulfate (Albuterol Sulfate 90 Mcg 8 Gm Inhaler) 2 puff INHALE Q6H PRN PRN Reason: dyspnea Albuterol/Ipratropium (Albuterol/Iprat 2.5/0.5mg 3 Ml Ampul.Neb) 3 ml INHALE RQID [facility] Last Admin: 05/30/21 07:59 Dose: Not Given Documented by: Amlodipine Besylate (Amlodipine Besylate 5 Mg Tablet) 5 mg PO DAILY [facility]; Protocol Atorvastatin Calcium (Atorvastatin Calcium 10 Mg Tablet) 10 mg PO BEDTIME [facility] Baclofen (Baclofen 20 Mg Tablet) 20 mg PO TID PRN PRN Reason: muscle spasm Bupropion HCl (Bupropion Hcl Xl 300 Mg Tab.Er.24h) 300 mg PO DAILY [facility] Calcium Carbonate/Cholecalciferol (Calcium + Vitamin D 250 Mg Tablet) 500 mg PO BID [facility] Dextrose (Dextrose 50 % 25 Gm/50 Ml Vial) 25 gm IVPUSH Q15M PRN; Protocol PRN Reason: per Hypoglycemia Standing Ord. Docusate Sodium (Docusate Sodium 100 Mg Capsule) 100 mg PO DAILY PRN PRN Reason: Constipation Enoxaparin Sodium (Enoxaparin Sodium 40 Mg/0.4 Ml Syringe) 40 mg SUBCUT Q24H [facility] Last Admin: 05/29/21 23:12 Dose: 40 mg Documented by: Fluticasone/Vilanterol (Fluticasone/Vilanterol 200/25 Blst.W.Dev) 1 puff INHALE RDAILY [facility] Last Admin: 05/30/21 08:00 Dose: Not Given Documented by: Gabapentin (Gabapentin 300 Mg Capsule) 600 mg PO TID [facility] Glucose (Glucose Gel 15 Gm Gel..Gram.) 15 gm PO Q15M PRN; Protocol PRN Reason: per Hypoglycemia Standing Ord. Piperacillin Sod/Tazobactam (Sod 3.375 gm/ Sodium Chloride) 50 mls @ 100 mls/hr IV Q6H [facility] Last Infusion: 05/30/21 07:07 Dose: Infused Documented by: Vancomycin HCl 1,000 mg/ (Sodium Chloride) 270 mls @ 270 mls/hr IV Q12H [facility] Insulin Human Lispro (Insulin Lispro 100 Unit/Ml 3 Ml Vial) 0 unit SUBCUT QIDACHS [facility]; Protocol Last Admin: 05/30/21 07:31 Dose: 4 unit Documented by: Lidocaine (Lidocaine 4 % Patch Adh..Patch) 1 patch TRANSDERMA DAILY [facility] Metoprolol Succinate (Metoprolol Succinate Er 25 Mg Tab.Er.24h) 25 mg PO DAILY [facility]; Protocol Mirtazapine (Mirtazapine 15 Mg Tablet) 15 mg PO BEDTIME [facility] Montelukast Sodium (Montelukast Sodium 10 Mg Tablet) 10 mg PO BEDTIME [facility] Morphine Sulfate (Morphine Sulfate 4 Mg/Ml Cartridge) 4 mg IVPUSH Q4H PRN; Protocol PRN Reason: Pain, Severe (Pain Scale 7-10) Ondansetron HCl (Ondansetron Hcl 4 Mg/2 Ml Vial) 4 mg IVPUSH Q8H PRN PRN Reason: Nausea and Vomiting Pharmacy Consult (Consult Rx Perform Med Rec) 1 each MISCELLANE ONCE PRN PRN Reason: Consult order Pharmacy Consult (Consult Rx Vancomycin Dosing) 1 each MISCELLANE DAILY PRN PRN Reason: Consult order Prednisone (Prednisone 10 Mg Tablet) 10 mg PO DAILY [facility] Sodium Chloride (0.9 % Sodium Chloride Flush 3 Ml Syringe) 3 ml IVFLUSH QSHIFT [facility] Last Admin: 05/30/21 00:31 Dose: 3 ml Documented by: Tiotropium [place] (Tiotropium [place] 18 Mcg Cap.W.Dev) 1 puff INHALE RDAILY [facility] Last Admin: 05/30/21 08:00 Dose: Not Given Documented by: Tramadol HCl (Tramadol Hcl 50 Mg Tablet) 50 mg PO Q6H PRN PRN Reason: severe pain Vitamin D (Cholecalciferol (Vitamin D3) 25 Mcg Tablet) 50 mcg PO DAILY [facility] Home Medications Medication Instructions Recorded Confirmed Last Taken Type acetaminophen 650 mg 650 mg PO Q8H PRN 05/28/21 05/29/21 Unknown History tablet,extended release albuterol sulfate 90 mcg/actuation 2 puff PO Q6H PRN 05/28/21 05/29/21 Unknown History aerosol inhaler (ProAir HFA) amlodipine 5 mg tablet 5 mg PO DAILY 05/28/21 05/29/21 Unknown History atorvastatin 10 mg tablet 10 mg PO BEDTIME 05/28/21 05/29/21 Unknown History baclofen 20 mg tablet 20 mg PO TID PRN 05/28/21 05/29/21 Unknown History budesonide-formoterol HFA 160 2 puff PO BID 05/28/21 05/29/21 Unknown History mcg-4.5 mcg/actuation aerosol inhaler (Symbicort) bupropion HCl 150 mg tablet,12 hr 150 mg PO BID 05/28/21 05/29/21 Unknown History sustained-release calcium carbonate 500 mg-vitamin 1 tab PO BID 05/28/21 05/29/21 Unknown History D3 5 mcg (200 unit) tablet (Oyster Shell Calcium-Vitamin D3) cholecalciferol (vitamin D3) 50 2,000 unit PO DAILY 05/28/21 05/29/21 Unknown History mcg (2,000 unit) tablet gabapentin 300 mg capsule 600 mg PO TID 05/28/21 05/29/21 Unknown History ipratropium 20 mcg-albuterol 100 1 puff PO QID 05/28/21 05/29/21 Unknown History mcg/actuation mist for inhalation (Combivent Respimat) lidocaine 5 % topical patch 1 patch TOPICAL DAILY 05/28/21 05/29/21 Unknown History (Lidoderm) metformin 500 mg tablet 500 mg PO BID 05/28/21 05/29/21 Unknown History metoprolol succinate 25 mg 25 mg PO DAILY 05/28/21 05/29/21 Unknown History tablet,extended release 24 hr mirtazapine 30 mg tablet 15 mg PO BEDTIME 05/28/21 05/29/21 Unknown History prednisone 10 mg tablet 10 mg PO DAILY 05/28/21 05/29/21 Unknown History tiotropium bromide 2.5 2 puff PO DAILY 05/28/21 05/29/21 Unknown History mcg/actuation mist for inhalation (Spiriva Respimat) tramadol 50 mg tablet 50 mg PO Q6H PRN 05/28/21 05/29/21 Unknown History zafirlukast 20 mg tablet 20 mg PO BID 05/28/21 05/29/21 Unknown History Physical Exam Vital Signs: Vital Signs: Last Vital Signs Temp 97.9 F 05/30/21 06:04 Pulse 76 05/30/21 06:04 Resp 12 05/30/21 06:04 BP 134/72 05/30/21 06:04 Pulse Ox 92 05/30/21 06:04 BMI result Body Mass Index 27.3 Const: General: cooperative, comfortable and no acute distress Extrem: Other: Right elbow has small amount of swelling over the olecranon. There is no redness. He has full range of motion of the elbow he can supinate and pronate without pain. There is some tenderness to palpation. The area does feel firm. No notable abscess present. Results Labs Result Diagrams: 05/30/21 06:25 05/30/21 06:25 Labs: Abnormal lab results 05/29/21 05/29/21 05/29/21 Range/Units 20:27 20:27 20:27 WBC 17.8 H (4.8-10.8) X10*3/uL RBC 4.56 L (4.60-5.80) X10*6/uL Hgb (14.0-18.0) g/dl Hct (42.0-52.0) % MPV 8.4 L (9.4-12.4) fL Immature Gran % (Auto) 0.8 H (0.0-0.4) % Lymph % (Auto) 19.2 L (20-40) % Ness # (Auto) (0.1-1.2) X10*3/uL Abs Immat Gran (auto) 0.14 H (0.00-0.03) X10*3/uL Absolute Neuts (auto) 12.7 H (2.0-8.3) x10*3/uL ESR 18 H (0-15) MM/HR POC Glucose (60-115) mg/dL Random Glucose 200 H D (60-115) mg/dL C-Reactive Protein (< or = 0.50) mg/dL COVID-19 ([facility]O) (Negative) 05/29/21 05/29/21 05/30/21 Range/Units 22:22 23:20 06:25 WBC 13.5 H (4.8-10.8) X10*3/uL RBC 4.29 L (4.60-5.80) X10*6/uL Hgb 12.9 L (14.0-18.0) g/dl Hct 41.4 L (42.0-52.0) % MPV 8.5 L (9.4-12.4) fL Immature Gran % (Auto) 1.1 H (0.0-0.4) % Lymph % (Auto) (20-40) % Ness # (Auto) 1.4 H (0.1-1.2) X10*3/uL Abs Immat Gran (auto) 0.15 H (0.00-0.03) X10*3/uL Absolute Neuts (auto) (2.0-8.3) x10*3/uL ESR (0-15) MM/HR POC Glucose (60-115) mg/dL Random Glucose (60-115) mg/dL C-Reactive Protein 1.23 H (< or = 0.50) mg/dL COVID-19 ([facility]O) Positive A (Negative) 05/30/21 05/30/21 Range/Units 06:25 07:14 WBC (4.8-10.8) X10*3/uL RBC (4.60-5.80) X10*6/uL Hgb (14.0-18.0) g/dl Hct (42.0-52.0) % MPV (9.4-12.4) fL Immature Gran % (Auto) (0.0-0.4) % Lymph % (Auto) (20-40) % Ness # (Auto) (0.1-1.2) X10*3/uL Abs Immat Gran (auto) (0.00-0.03) X10*3/uL Absolute Neuts (auto) (2.0-8.3) x10*3/uL ESR (0-15) MM/HR POC Glucose 225 H (60-115) mg/dL Random Glucose 269 H (60-115) mg/dL C-Reactive Protein (< or = 0.50) mg/dL COVID-19 ([facility]) (Negative) H & H 05/29/21 05/30/21 Range/Units 20:27 06:25 Hgb 14.1 12.9 L (14.0-18.0) g/dl Hct 43.1 41.4 L (42.0-52.0) % All other labs normal. Assessment and Plan (1) Olecranon bursitis of right elbow: Status: Acute Plan This does appear to be a septic olecranon bursitis. He does not have any redness or pain with motion. There is no significant fluctuance. I would recommend continuing symptomatic treatment and IV antibiotics if he continues to have cellulitis. No further intervention warranted at this time. Procedures Date of Service Date of Service: 05/30/21
[2021-05-30 09:27] VITALS: BP 128/72; PULSE 82; RESP 14; O2SAT 95
[2021-05-30] MEDS: buPROPion HCl XL 300 MG TAB.ER.24H PO (09:34)
[2021-05-30] MEDS: predniSONE 10 MG TABLET PO (09:34)
[2021-05-30] MEDS: amLODIPine Besylate 5 MG TABLET PO (09:34)
[2021-05-30] MEDS: Metoprolol Succinate ER 25 MG TAB.ER.24H PO (09:34)
--- NOTE | 2021-05-30 09:38 | PC.NURSE ---
while giving pt his morning medications, pt became very agitated, began hitting himself in the chest, abruptly stood from the bed and flipped his blankets off the bed, threw his pillow across the room. pt reported that he came here to get his arm checked out and all were doing is making him more sick and more depressed . historical interpreter at bedside explained to pt that t/w had his morning meds, which were the meds he was asking for. pt reported he didn't want to hear anymore that he just wanted to go he was going to call his ride now and just fucking leave . t/w offered pt his breathing treatment Breo which was at bedside and he refused it though he was actively reporting having difficulty breathing because he was getting worked uP. Dr. Collado notified and will be down to eval pt
--- NOTE | 2021-05-30 10:22 | PC.NURSE ---
dr jacobson down to see pt, with sales training representative - pt wanting to sign out but agreed to stay in the hospital, pt moved to overflow bed 12
[2021-05-30 10:43] VITALS: BP 142/91; PULSE 80; RESP 20; O2SAT 95
--- NOTE | 2021-05-30 11:25 | PC.NURSE ---
Pt arrives from the main ED. VSS, resting in the hospital bed. Verbalizing no issues at this time. Pt is independent in the room. Callbell and belongings within reach.
[2021-05-30 12:00] LABS: Glucose, Whole Blood 176 mg/dL (60-115)
--- NOTE | 2021-05-30 13:24 | PHA.PROG ---
Admission Date/Time: May 29, 2021 21:40 Indication: skin and soft tissue Weight in k.647 kg Adjusted body weight in Kg: Elkins body weight in K.4 kg Obesity Dosing Indication % IBW: Serum Creatinine - Last 168 Hours 05/29/21 05/30/21 20:27 06:25 Creatinine 0.83 0.84 Estimated CrCl and GFR - Last 168 Hours 05/29/21 05/30/21 20:27 06:25 Estim Creat Clear Calc 99.5 98.3 Estimated GFR > 60 > 60 Vancomycin Loading Dose: 1500mg Current Vancomycin Dosing Regimen: 1000mg Q12H Vancomycin Monitoring using AUC goal of 400 - 600 range with trough as surrogate marker: Date and Time for next Vancomycin Level to be drawn: 05/31/21 @1000 Pharmacist Comments on Vancomycin Plan: Vancomycin was started early this morning @0000, current regimen is 1000mg Q12H. Model predicting AUC of 444mg/L and trough of 13.6mg/L. Will continue to monitor renal function and next trough set to be drawn on 05/31/21 @1000 Vancomycin dosing will take advantage of [employer] as a clinical decision support tool that uses Bayesian modeling to calculate individual patient's pharmacokinetic parameters and forecast the patient's drug concentration time course with the target goal AUC 24 range of 400 - 600 mg/L/hr.
[2021-05-30] MEDS: Acetaminophen 325 MG TABLET 650 MG PO ×2 (13:46→19:45)
[2021-05-30] MEDS: methylPREDNISolone Sod Succ 40 MG/ML VIAL IVPUSH (14:16)
[2021-05-30] MEDS: Albuterol/Iprat 2.5/0.5MG 3 ML AMPUL.NEB INHALE (14:25)
[2021-05-30 14:26] VITALS: PULSE 78; RESP 18; O2SAT 94
[2021-05-30] MEDS: vancomycin HCL 1,000 MG in 0.9 % Sodium Chloride 250 ML 270 MG IV (15:42)
[2021-05-30 18:21] LABS: Glucose, Whole Blood 270 mg/dL (60-115)
[2021-05-30] MEDS: clonazePAM 0.5 MG TABLET PO (19:45)
[2021-05-30] MEDS: Montelukast Sodium 10 MG TABLET PO (22:51)
[2021-05-30] MEDS: Mirtazapine 15 MG TABLET PO (22:51)
[2021-05-30] MEDS: Gabapentin 300 MG CAPSULE 600 MG PO (22:51)
[2021-05-30] MEDS: Nicotine Polacrilex 2 MG GUM BUCCAL (22:51)
[2021-05-30] MEDS: Zolpidem Tartrate 5 MG TABLET PO (22:51)
[2021-05-30] MEDS: Calcium + Vitamin D 250 MG TABLET 500 MG PO (22:51)
[2021-05-30] MEDS: Atorvastatin Calcium 10 MG TABLET PO (22:52)
[2021-05-30 22:56] LABS: Glucose, Whole Blood 273 mg/dL (60-115)
[2021-05-31] VITALS (9 sets, daily range): BP systolic 115–136; BP diastolic 71–82; PULSE 77–92; RESP 16–20; TEMP 36.4–37.1; O2SAT 93–97
[2021-05-31] MEDS: 0.9 % Sodium Chloride Flush 3 ML SYRINGE IVFLUSH ×3 (01:48→17:25)
[2021-05-31] MEDS: vancomycin HCL 1,000 MG in 0.9 % Sodium Chloride 250 ML 270 MG IV (01:48)
[2021-05-31] MEDS: Piperacillin Sodium/Tazobactam 3.375 GM in 0.9 % Sodium Chloride 50 ML IV ×4 (01:52→19:37)
[2021-05-31] MEDS: methylPREDNISolone Sod Succ 40 MG/ML VIAL IVPUSH ×2 (01:54→14:25)
[2021-05-31 06:15] LABS: Hematocrit 41.5 % (42.0-52.0); Hemoglobin 13.8 g/dl (14.0-18.0); Mean Corpuscular HGB Conc 33.3 g/dl (31.0-36.0); Mean Corpuscular Hemoglobin 30.6 pg (27.0-33.0); Mean Platelet Volume 8.3 fL (9.4-12.4); Platelet Count 379 X10*3/uL (160-400); Red Blood Count 4.51 X10*6/uL (4.60-5.80); Red Cell Distribution Width 13.1 % (11.0-16.0); White Blood Count 21.3 X10*3/uL (4.8-10.8)
[2021-05-31 06:39] LABS: Anion Gap 10 (12-20); Blood Urea Nitrogen 11 mg/dL (9-16); Calcium 9.8 mg/dL (8.4-10.2); Carbon Dioxide 26 mmol/L (22-29); Chloride 104 mmol/L (96-108); Creatinine Clr Calc Pharmacy 108.7; Estimated Glomerular Filt Rate > 60; Glucose Random 214 mg/dL (60-115); Potassium 4.4 mmol/L (3.3-5.1); Sodium 136 mmol/L (135-145)
[2021-05-31 07:22] LABS: Glucose, Whole Blood 215 mg/dL (60-115)
[2021-05-31] MEDS: Insulin Lispro 100 UNIT/ML 3 ML VIAL SUBCUT ×2 (07:51→21:37)
[2021-05-31] MEDS: Fluticasone/Vilanterol 200/25 BLST.W.DEV 1 PUFF INHALE (08:14)
[2021-05-31] MEDS: Albuterol/Iprat 2.5/0.5MG 3 ML AMPUL.NEB INHALE ×4 (08:15→20:45)
--- NOTE | 2021-05-31 09:08 | HE.PHANOTE ---
VANCOMYCIN DOSING ADDENDUM: Patient Scr is 0.76, will continue current regimen of 1000 mg Q12H, the model is predicting a AUC of 418 and a trough of 12.5.
--- NOTE | 2021-05-31 09:23 | MHC.CDI.CONC ---
CDI Concurrent Query Documentation Clarification: PHYSICIAN'S DOCUMENTATION REQUEST Date of Query: 05/31/21 0923 Patient Name: Aldo Breaux Admit Date: 05/29/21 Dear Doctor, A review of the medical record indicates additional documentation may be needed. Please review below and update the documentation accordingly. Clinical Indicators: SIRS is documented in the medical record. Other clinical indicators include: Risk Factors/Clinical Indicators/Treatments Skin abscess/celluitis elbow. Patient had left ama and returned with elbow pain. WBC 17.8 21.3 RR 20 BP 155/89 H HR 108 IV Vancomycin and Zosyn Ortho noted septic bursitis - continue IV antibiotics and symptomatic treatment for the cellullitis. Please clarify which of the following most accurately describes the above abnormalities: SIRS/Sepsis or other etiology: Sepsis Systemic manifestations of infection, with 2 or more SIRS criteria which include: -Fever > 100.4F or hypothermia < 96.8 F -Leukocytosis - WBC > 12,000 or leukopenia, WBC < 4,000 or > 10% bands -Tachycardia > 90 beats/minute -Tachypnea - RR > 20 breaths/minute or PaCO2 < 32mmHg SIRS due to a non-infectious source SIRS due to infection source Indicate the known or suspected etiology Indicate if there is associated organ dysfunction, such as renal or respiratory failure Other Unable to determine Use of terms such as suspected, likely, concern for, or probable (associated with a specific diagnosis that is being evaluated, monitored, or treated as if it exists) are acceptable and can be coded in the inpatient setting, when documented at the time of discharge. Thank you, Inna Rico [facility], CDIS Extension: [phone] Please use your independent medical judgment in providing your response. THIS QUERY IS PART OF THE PERMANENT MEDICAL RECORD Provider Response: Other Other Diagnosis: no sepsis
[2021-05-31 10:44] LABS: Vancomycin Trough 6.6 mcg/mL (10.0-20.0)
--- NOTE | 2021-05-31 10:52 | HE.PHANOTE ---
VANCOMYCIN DOSING ADDENDUM: Scr is 0.76 today and trough came back at 6.6. Changed regimen to 1500 mg Q12H, model predicts a AUC of 448 and a trough of 10.6. Next trough is set to be drawn 06/01 @ 2200.
--- NOTE | 2021-05-31 11:34 | P.PNIM_ITS ---
Subjective Subjective Date of Service: 05/31/21 Review of Systems follow-up olecranon bursitis No pain, swelling much improved Physical Exam Vital Signs: Vital Signs: Last Vital Signs Temp 98.4 F 05/31/21 06:10 Pulse 78 05/31/21 08:15 Resp 16 05/31/21 08:15 BP 128/80 05/31/21 06:10 Pulse Ox 95 05/31/21 06:10 BMI result Body Mass Index 27.3 Appearing in no acute distress lung sounds are clear to auscultation heart regular rate rhythm, clear S1, S2 positive bowel sounds, abdomen is soft, nontender neuro patient is alert x3, no focal deficits Some swelling noted to right elbow area Objective Data Active Medications Acetaminophen (Acetaminophen 325 Mg Tablet) 650 mg PO Q6H PRN PRN Reason: Pain, Mild (Pain Scale 1-3) Last Admin: 05/30/21 19:45 Dose: 650 mg Documented by: SRAVANTHI Albuterol Sulfate (Albuterol Sulfate 90 Mcg 8 Gm Inhaler) 2 puff INHALE Q6H PRN PRN Reason: dyspnea Albuterol/Ipratropium (Albuterol/Iprat 2.5/0.5mg 3 Ml Ampul.Neb) 3 ml INHALE RQID [facility] Last Admin: 05/31/21 08:15 Dose: 3 ml Documented by: KATHERINE Amlodipine Besylate (Amlodipine Besylate 5 Mg Tablet) 5 mg PO DAILY [facility]; Protocol Last Admin: 05/31/21 10:16 Dose: Not Given Documented by: VIJAYA Non-Admin Reason: Patient Refused Atorvastatin Calcium (Atorvastatin Calcium 10 Mg Tablet) 10 mg PO BEDTIME [facility] Last Admin: 05/30/21 22:52 Dose: 10 mg Documented by: SRAVANTHI Baclofen (Baclofen 20 Mg Tablet) 20 mg PO TID PRN PRN Reason: muscle spasm Bupropion HCl (Bupropion Hcl Xl 300 Mg Tab.Er.24h) 300 mg PO DAILY [facility] Last Admin: 05/31/21 10:17 Dose: Not Given Documented by: VIJAYA Non-Admin Reason: Patient Refused Calcium Carbonate/Cholecalciferol (Calcium + Vitamin D 250 Mg Tablet) 500 mg PO BID [facility] Last Admin: 05/31/21 10:17 Dose: Not Given Documented by: VIJAYA Non-Admin Reason: Patient Refused Dextrose (Dextrose 50 % 25 Gm/50 Ml Vial) 25 gm IVPUSH Q15M PRN; Protocol PRN Reason: per Hypoglycemia Standing Ord. Docusate Sodium (Docusate Sodium 100 Mg Capsule) 100 mg PO DAILY PRN PRN Reason: Constipation Enoxaparin Sodium (Enoxaparin Sodium 40 Mg/0.4 Ml Syringe) 40 mg SUBCUT Q24H [facility] Last Admin: 05/30/21 23:00 Dose: Not Given Documented by: SRAVANTHI Non-Admin Reason: Patient Refused Fluticasone/Vilanterol (Fluticasone/Vilanterol 200/25 Blst.W.Dev) 1 puff INHALE RDAILY [facility] Last Admin: 05/31/21 08:14 Dose: 1 puff Documented by: KATHERINE Gabapentin (Gabapentin 300 Mg Capsule) 600 mg PO TID [facility] Last Admin: 05/31/21 10:17 Dose: Not Given Documented by: VIJAYA Non-Admin Reason: Patient Refused Glucose (Glucose Gel 15 Gm Gel..Gram.) 15 gm PO Q15M PRN; Protocol PRN Reason: per Hypoglycemia Standing Ord. Piperacillin Sod/Tazobactam (Sod 3.375 gm/ Sodium Chloride) 50 mls @ 100 mls/hr IV Q6H [facility] Last Infusion: 05/31/21 07:32 Dose: 0 mls/hr Documented by: VIJAYA Vancomycin HCl 1,500 mg/ (Sodium Chloride) 500 mls @ 333.333 mls/hr IV Q12H [facility] Insulin Human Lispro (Insulin Lispro 100 Unit/Ml 3 Ml Vial) 0 unit SUBCUT QIDACHS [facility]; Protocol Last Admin: 05/31/21 07:51 Dose: 4 unit Documented by: VIJAYA Lidocaine (Lidocaine 4 % Patch Adh..Patch) 1 patch TRANSDERMA DAILY [facility] Last Admin: 05/31/21 10:18 Dose: Not Given Documented by: VIJAYA Non-Admin Reason: Patient Refused Methylprednisolone Sodium Succinate (Methylprednisolone Sod Succ 40 Mg/Ml Vial) 40 mg IVPUSH Q12H [facility] Last Admin: 05/31/21 01:54 Dose: 40 mg Documented by: HUA Metoprolol Succinate (Metoprolol Succinate Er 25 Mg Tab.Er.24h) 25 mg PO DAILY [facility]; Protocol Last Admin: 05/31/21 10:18 Dose: Not Given Documented by: VIJAYA Non-Admin Reason: Patient Refused Mirtazapine (Mirtazapine 15 Mg Tablet) 15 mg PO BEDTIME [facility] Last Admin: 05/30/21 22:51 Dose: 15 mg Documented by: SRAVANTHI Montelukast Sodium (Montelukast Sodium 10 Mg Tablet) 10 mg PO BEDTIME [facility] Last Admin: 05/30/21 22:51 Dose: 10 mg Documented by: SRAVANTHI Morphine Sulfate (Morphine Sulfate 4 Mg/Ml Cartridge) 4 mg IVPUSH Q4H PRN; Protocol PRN Reason: Pain, Severe (Pain Scale 7-10) Nicotine Polacrilex (Nicotine Polacrilex 2 Mg Gum) 2 mg BUCCAL Q2H PRN PRN Reason: Smoking Cessation Last Admin: 05/30/21 22:51 Dose: 2 mg Documented by: SRAVANTHI Ondansetron HCl (Ondansetron Hcl 4 Mg/2 Ml Vial) 4 mg IVPUSH Q8H PRN PRN Reason: Nausea and Vomiting Pharmacy Consult (Consult Rx Perform Med Rec) 1 each MISCELLANE ONCE PRN PRN Reason: Consult order Pharmacy Consult (Consult Rx Vancomycin Dosing) 1 each MISCELLANE DAILY PRN PRN Reason: Consult order Prednisone (Prednisone 10 Mg Tablet) 10 mg PO DAILY [facility] Last Admin: 05/30/21 09:34 Dose: 10 mg Documented by: FRANKIE Sodium Chloride (0.9 % Sodium Chloride Flush 3 Ml Syringe) 3 ml IVFLUSH QSHIFT [facility] Last Admin: 05/31/21 07:51 Dose: 3 ml Documented by: VIJAYA Tiotropium [place] (Tiotropium [place] 18 Mcg Cap.W.Dev) 1 puff INHALE RDAILY [facility] Last Admin: 05/31/21 08:14 Dose: 1 puff Documented by: KATHERINE Tramadol HCl (Tramadol Hcl 50 Mg Tablet) 50 mg PO Q6H PRN PRN Reason: severe pain Vitamin D (Cholecalciferol (Vitamin D3) 25 Mcg Tablet) 50 mcg PO DAILY [facility] Last Admin: 05/31/21 10:17 Dose: Not Given Documented by: VIJAYA Non-Admin Reason: Patient Refused Zolpidem Tartrate (Zolpidem Tartrate 5 Mg Tablet) 5 mg PO BEDTIME [facility] Last Admin: 05/30/21 22:51 Dose: 5 mg Documented by: SRAVANTHI Labs CBC & Chem 7: 05/31/21 06:08 05/31/21 06:08 Labs: Laboratory Results - last 24 hr 05/30/21 05/30/21 05/30/21 11:56 18:16 22:52 MCV MCH MCHC RDW Plt Count MPV Absolute Nucleated RBC Nucleated RBC % (auto) Anion Gap Estim Creat Clear Calc Estimated GFR POC Glucose 176 H 270 H 273 H Random Glucose Calcium Vancomycin Trough 05/31/21 05/31/21 05/31/21 06:08 06:08 07:18 MCV 92.0 MCH 30.6 MCHC 33.3 RDW 13.1 Plt Count 379 MPV 8.3 L Absolute Nucleated RBC 0.000 Nucleated RBC % (auto) 0.0 Anion Gap 10 L Estim Creat Clear Calc 108.7 Estimated GFR > 60 POC Glucose 215 H Random Glucose 214 H Calcium 9.8 D Vancomycin Trough 05/31/21 10:01 MCV MCH MCHC RDW Plt Count MPV Absolute Nucleated RBC Nucleated RBC % (auto) Anion Gap Estim Creat Clear Calc Estimated GFR POC Glucose Random Glucose Calcium Vancomycin Trough 6.6 L Microbiology Microbiology Results: Microbiology 05/29/21 22:22 Blood Culture - Preliminary Blood - Venous No growth after 24 hours. 05/29/21 22:22 Blood Culture - Preliminary Blood - Venous No growth after 24 hours. Assessment and Plan (1) Cellulitis and abscess of upper extremity: Status: Acute (2) COPD (chronic obstructive pulmonary disease): Status: Acute Plan 61-year-old male with past medical history as mentioned above presents to the hospital with complaints of continuing pain and swelling of his right elbow Cellulitis and abscess of olecranon? process has leukocytosis, afebrile orthopedic surgery-recomended to moniter and continue IV antibiotics, follow blood cultures Id eval pending Vancomycin and Zosyn COVID-19 infection. Asymptomatic patient states vaccinated. of note patient was negative on 05/[address] of [address] on low-dose sliding scale insulin diabetic diet DVT prophylaxis: Lovenox attending Dr. Posadas Patient requires continued hospitalization due to necessity for IV antibiotics for septic olecranon bursitis still with some erythema and edema pending infectious disease consultation disposition possible discharge tomorrow when medically cleared Quality Stroke Does the patient have a stroke diagnosis?: No VTE Prior VTE?: No VTE Risk Level:: Medical - moderate - high VTE Device Contraindication: Treatment Not Indicated VTE Drug Contraindication: N/A - Med Ordered
--- NOTE | 2021-05-31 13:21 | MHC.CM.PN ---
Addendum entered by Ivone Stone 05/31/21 13:23: Patient was positive for Covid in March. Test positive again on 05/31. Original Note: Attempted to meet with patient in regards to discharge planning. Nursing care currently being provided. Case management assessment completed using medical record. Patient lives alone and is primarily Italian speaking. Patient was admitted but left AMA. Patient returned with cellulitis. PCP is Dr Richards. Copy of HCP verified to be on file. Patient received 2 vaccine but not a booster. No services anticipated to be needed at discharge. Continue to monitor for d/c needs.
[2021-05-31 13:28] LABS: Glucose, Whole Blood 141 mg/dL (60-115)
[2021-05-31] MEDS: vancomycin HCL 1,500 MG in 0.9 % Sodium Chloride 500 ML 333.33 MG IV (15:14)
[2021-05-31] MEDS: Acetaminophen 325 MG TABLET 650 MG PO (15:14)
--- NOTE | 2021-05-31 18:20 | PC.NURSE ---
Addendum entered by Jessika Stoner RN 05/31/21 18:34: COVID reswab done and sent to lab. awaiting results Original Note: pt refused PO medications this morning. Najma Elizabeth made aware. Pt AOx3 . Pt requested another COVID test stating he feels fine and doesnt believe he has it. Najma Elizabeth made aware.
[2021-05-31 18:26] LABS: Glucose, Whole Blood 274 mg/dL (60-115)
[2021-05-31 18:58] LABS: COVID-19 Test Negative (Negative)
[2021-05-31 21:04] LABS: Glucose, Whole Blood 355 mg/dL (60-115)
[2021-05-31] MEDS: Calcium + Vitamin D 250 MG TABLET 500 MG PO (21:25)
[2021-05-31] MEDS: Atorvastatin Calcium 10 MG TABLET PO (21:25)
[2021-05-31] MEDS: Zolpidem Tartrate 5 MG TABLET PO (21:25)
[2021-05-31] MEDS: Mirtazapine 15 MG TABLET PO (21:26)
[2021-05-31] MEDS: Montelukast Sodium 10 MG TABLET PO (21:26)
[2021-06-01] MEDS: vancomycin HCL 1,500 MG in 0.9 % Sodium Chloride 500 ML 333.33 MG IV ×2 (00:27→11:44)
[2021-06-01] MEDS: Piperacillin Sodium/Tazobactam 3.375 GM in 0.9 % Sodium Chloride 50 ML IV ×3 (00:27→11:06)
[2021-06-01] MEDS: methylPREDNISolone Sod Succ 40 MG/ML VIAL IVPUSH ×2 (00:27→11:16)
[2021-06-01] MEDS: 0.9 % Sodium Chloride Flush 3 ML SYRINGE IVFLUSH ×2 (00:33→08:22)
[2021-06-01] MEDS: Baclofen 20 MG TABLET PO (02:17)
[2021-06-01 03:47] VITALS: BP 113/63; PULSE 73; RESP 16; TEMP 36.7; O2SAT 92
--- NOTE | 2021-06-01 05:55 | PC.NURSE ---
This nurse took over patient's care at 0030, patient alert and oriented, offers no complaints at this time. Reports feeling tired and wants to sleep, vss, l/s clear, abd soft. Call brooke within reach.
[2021-06-01] MEDS: Albuterol/Iprat 2.5/0.5MG 3 ML AMPUL.NEB INHALE ×2 (07:52→11:40)
[2021-06-01] MEDS: Fluticasone/Vilanterol 200/25 BLST.W.DEV 1 PUFF INHALE (07:54)
--- NOTE | 2021-06-01 07:56 | P.CDIC_ITS ---
CDI Concurrent Query Documentation Clarification: PHYSICIAN'S DOCUMENTATION REQUEST Date of Query: 06/01/21 0756 Patient Name: Aldo Breaux Admit Date: 05/29/21 Dear Doctor, A review of the medical record indicates additional documentation may be needed. Please review below and update the documentation accordingly. Clinical Indicators: Risk Factors/Clinical Indicators/Treatments Diabetes mellitus Type 2 POC glucose - 274 H 355 H Humalog Please clarify the following regarding Diabetes Mellitus (DM): Complications of DM: * Hypoglycemia * Hyperglycemia * Uncontrolled * Poorlly controlled * No complications of DM * Other complication ? please specify * Unable to determine Use of terms such as suspected, likely, concern for, or probable (associated with a specific diagnosis that is being evaluated, monitored, or treated as if it exists) are acceptable and can be coded in the inpatient setting, when documented at the time of discharge. Thank you, Inna Rico [facility], CDIS Extension: [phone] Please use your independent medical judgment in providing your response. THIS QUERY IS PART OF THE PERMANENT MEDICAL RECORD Other Diagnosis: No complications
[2021-06-01 07:57] LABS: Glucose, Whole Blood 258 mg/dL (60-115)
[2021-06-01 07:59] VITALS: PULSE 74; RESP 20; O2SAT 96
[2021-06-01] MEDS: Acetaminophen 325 MG TABLET 650 MG PO (08:18)
[2021-06-01] MEDS: amLODIPine Besylate 5 MG TABLET PO (08:19)
[2021-06-01] MEDS: buPROPion HCl XL 300 MG TAB.ER.24H PO (08:19)
[2021-06-01] MEDS: Cholecalciferol (Vitamin D3) 25 MCG TABLET 50 MCG PO (08:19)
[2021-06-01] MEDS: Metoprolol Succinate ER 25 MG TAB.ER.24H PO (08:19)
[2021-06-01] MEDS: Calcium + Vitamin D 250 MG TABLET 500 MG PO (08:19)
[2021-06-01 08:37] LABS: Creatinine Clr Calc Pharmacy 92.8; Estimated Glomerular Filt Rate > 60
[2021-06-01 08:41] VITALS: BP 133/78; PULSE 85; RESP 18; TEMP 36.5; O2SAT 96
[2021-06-01 08:52] LABS: Hematocrit 43.8 % (42.0-52.0); Hemoglobin 14.4 g/dl (14.0-18.0); Mean Corpuscular HGB Conc 32.9 g/dl (31.0-36.0); Mean Corpuscular Hemoglobin 30.8 pg (27.0-33.0); Mean Corpuscular Volume 93.8 fL (80.0-98.0); Mean Platelet Volume 8.4 fL (9.4-12.4); Platelet Count 448 X10*3/uL (160-400); Red Blood Count 4.67 X10*6/uL (4.60-5.80); Red Cell Distribution Width 13.2 % (11.0-16.0); White Blood Count 25.1 X10*3/uL (4.8-10.8)
[2021-06-01] MEDS: Insulin Lispro 100 UNIT/ML 3 ML VIAL SUBCUT (09:07)
--- NOTE | 2021-06-01 10:52 | P.DS_ITS ---
DS: Providers Provider Date of Service: 06/01/21 Date of admission: 05/29/21 21:40 Primary care physician: [facility] Consults: 05/29/21 21:43 Consult to Orthopedics Routine Consulting Provider: Bahman Palacio Reason for consultation: olecranon abscess Has provider been notified: No 05/30/21 11:51 Consult to Infectious Diseases Routine Consulting Provider: Yaima Blake Reason for consultation: elbow cellulitis /abcess Has provider been notified: No Attending physician on discharge: Mike Posadas Discharging clinician: Najma Elizabeth DS: Diagnosis Discharge Diagnosis (1) Cellulitis and abscess of upper extremity: Status: Acute DS: Summary Hospital Course Hospital Course: HP as per admitting provider 51-year-old male with past medical history of /COPD overlap syndrome, hyperlipidemia, hypertension, IBS who? initially presented to the hospital on 05/28 with elbow cellulitis/abscess formation, that time patient was on antibiotics, and was scheduled to be seen by Orthopedic surgery for possible abscess drainage but patient eloped.? He returns today stating that he still has significant pain and is worried that he might lose his elbow.? He reports that he left the hospital because he was in lot of pain and his pain was not being well treated. 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 He denies all other review of system.? Including no headache, change in vision, no chest pain, no abdominal pain nausea or vomiting, no diarrhea constipation, no urinary symptoms and no lower extremity edema.? No shortness of breath fever chills .? Cellulitis and abscess of olecranon? process . Did not necessitate drainage by the orthopedic surgery team. Treated with vancomycin and Zosyn. Seen by Infectious Disease provider with recommendation for Augmentin for 10 days and will continue steroid for total of 7 days COVID-19 infection.? Completely asymptomatic. He reports being fully vaccinated. History of diabetes. Treated with sliding scale and diabetic diet while inpatient. Can continue home medication. Leukocytosis. Secondary to steroid use, no fever noted. He can follow-up with his primary care provider if further labs are required. Hypertension. Stable blood pressure. Continue all home medications Hyperlipidemia. Continue statin COPD. No exacerbation. Continue home medications Mental health. Continue medications Time Spent with Patient Time attestation: Total time spent providing and/or coordinating discharge services: Discharge coordination time: Greater than 30 minutes Quality: Stroke Does the patient have a stroke diagnosis?: No Physical Exam Vital Signs: Vital Signs: Last Vital Signs Temp 97.7 F 06/01/21 08:41 Pulse 85 06/01/21 08:41 Resp 18 06/01/21 08:41 BP 133/78 06/01/21 08:41 Pulse Ox 96 06/01/21 08:41 BMI result Body Mass Index 27.3 Appearing in no acute distress head is normocephalic atraumatic eyes pupils are PERRLA sclera is anicteric mouth throat mucous membranes are intact and moist neck is supple no lymphadenopathy, no JVD noted lung sounds are clear to auscultation heart regular rate rhythm, clear S1, S2 positive bowel sounds, abdomen is soft, nontender neuro patient is alert x3, no focal deficits Right elbow edema significantly decreased, no erythema, no pain on palpation DS: Data Data Completed and Pending Labs on day of discharge: Laboratory Results - last 24 hr 05/31/21 05/31/21 05/31/21 13:25 18:21 18:31 WBC RBC Hgb Hct MCV MCH MCHC RDW Plt Count MPV Absolute Nucleated RBC Nucleated RBC % (auto) Creatinine Estim Creat Clear Calc Estimated GFR POC Glucose 141 H 274 H COVID-19 ([facility]) Negative COVID-19 Clin Com See Note 05/31/21 06/01/21 06/01/21 20:52 07:52 08:17 WBC RBC Hgb Hct MCV MCH MCHC RDW Plt Count MPV Absolute Nucleated RBC Nucleated RBC % (auto) Creatinine 0.89 Estim Creat Clear Calc 92.8 Estimated GFR > 60 POC Glucose 355 H* 258 H COVID-19 ([facility]) COVID-19 Clin Com 06/01/21 08:17 WBC 25.1 H RBC 4.67 Hgb 14.4 Hct 43.8 MCV 93.8 MCH 30.8 MCHC 32.9 RDW 13.2 Plt Count 448 H MPV 8.4 L Absolute Nucleated RBC 0.000 Nucleated RBC % (auto) 0.0 Creatinine Estim Creat Clear Calc Estimated GFR POC Glucose COVID-19 ([facility]) COVID-19 Clin Com Preliminary micro results at discharge 05/29/21 22:22 Blood Culture - Preliminary Blood - Venous No growth after 48 hours. 05/29/21 22:22 Blood Culture - Preliminary Blood - Venous No growth after 48 hours. Discharge Plan Discharge Anticipated Discharge Date/Time: 06/01/21 10:58 Patient Disposition: Home, Self-Care Discharge Diagnosis: olecranon bursitis COVID-19 Leukocytosis Referrals: [facility] [Primary Care Provider] - 1 Week Discharge Medications: New prednisone 10 mg tablet 40 mg PO DAILY Qty: 16 0RF amoxicillin-pot clavulanate 875-125 mg tablet 1 tab PO BID Qty: 20 0RF doxycycline hyclate 100 mg tablet 100 mg PO BID Qty: 20 0RF Continued metformin 500 mg tablet 500 mg PO BID 0RF bupropion HCl 150 mg tablet sustained-release 12 hr 150 mg PO BID 0RF prednisone 10 mg tablet 10 mg PO DAILY 0RF atorvastatin 10 mg tablet 10 mg PO BEDTIME 0RF amlodipine 5 mg tablet 5 mg PO DAILY 0RF tramadol 50 mg tablet 50 mg PO Q6H PRN (Reason: severe pain) 0RF acetaminophen 650 mg tablet extended release 650 mg PO Q8H PRN (Reason: Pain) 0RF baclofen 20 mg tablet 20 mg PO TID PRN (Reason: muscle spasm) 0RF mirtazapine 30 mg tablet 15 mg PO BEDTIME 0RF lidocaine [Lidoderm] 5 % adhesive patch,medicated 1 patch topical DAILY 0RF zafirlukast 20 mg tablet 20 mg PO BID 0RF gabapentin 300 mg capsule 600 mg PO TID 0RF metoprolol succinate 25 mg tablet extended release 24 hr 25 mg PO DAILY 0RF albuterol sulfate [ProAir HFA] 90 mcg/actuation HFA aerosol inhaler 2 puff PO Q6H PRN (Reason: dyspnea) 0RF calcium carbonate-vitamin D3 [Oyster Shell Calcium-Vit D3] 500 mg-5 mcg (200 unit) tablet 1 tab PO BID 0RF budesonide-formoterol [Symbicort] 160-4.5 mcg/actuation HFA aerosol inhaler 2 puff PO BID 0RF cholecalciferol (vitamin D3) 50 mcg (2,000 unit) tablet 2,000 unit PO DAILY 0RF Spiriva Respimat 2.5 mcg/actuation mist 2 puff PO DAILY 0RF Combivent Respimat 20-100 mcg/actuation mist 1 puff PO QID 0RF Discharge Orders: Discharge Order (Routine); Ordered 06/01/21 Ordered By: Najma Elizabeth Diet: advance to usual diet Activity on Discharge: As tolerated Stand Alone Forms: Patient Portal Discharge page Care Plan Goals: complete resolution of symptoms Health Concerns: olecranon bursitis COVID-19 Leukocytosis Plan of Treatment: continue medications as prescribed Follow-up with primary care provider as needed Assessment: see discharge summary
[2021-06-01 11:40] VITALS: PULSE 85; RESP 20; O2SAT 96
--- NOTE | 2021-06-01 11:53 | MHC.CM.PN ---
Received notification patient will be discharge home without services. Patient will arrange his own transportation. Tate JAMES aware. Continue to monitor for d/c needs.
--- NOTE | 2021-06-01 12:08 | PC.NURSE ---
nad, states pain in elboww is gone, had minor reza earlier and apap given w good effect, skin wpd, nad. ate breakfast. has [employer] running and will go home after that
--- NOTE | 2021-06-01 14:35 | P.CNID_ITS ---
History of Present Illness Data of Consult Service Date: 05/31/21 Requesting physician: Najma Elizabeth Primary Care Provider: [facility] Reason for consult: right elbow swelling,positive COVID He presents with right elbow pain and swelling for last three days. He has redness at area as well. He has no fever or chills He has positive COVID testing and has tested positive 05/3030 and 03/2021 as well He has no respiratory symptoms Review of Systems Review of Systems: Yes all other systems are reviewed and are negative [facility] Past Medical History Medical History Anxiety and depression Arthritis Asthma Asthma-COPD overlap syndrome Back pain Chronic abdominal pain COPD (chronic obstructive pulmonary disease) Elevated cholesterol GERD (gastroesophageal reflux disease) History of kidney stones HTN (hypertension) Irritable bowel syndrome Osteoporosis Tobacco dependence Tubular adenoma of colon Family History Family History Father No problems noted. Mother No problems noted. Son No problems noted. Daughter No problems noted. Surgical History Surgical History Carpal tunnel syndrome (~08/2014) H/O wrist surgery History of hydrocelectomy Hx of colonoscopy S/P carpal tunnel release S/P extracorporeal shock wave therapy Shoulder symptoms with history of shoulder arthroplasty Status post hip surgery Social History Social History Alcohol intake: current Alcohol intake frequency: does not drink Patient Tobacco Use Status: Current everyday Tobacco user Cigarette Packs Per Day: 0.5 Cigarettes Per Day: 10.0 Years Smoked: 18 Second Hand Smoke Exposure: No Advance Directives Date on File: 05/30/21 service: No Current occupational status: disabled Meds Allergies Allergy/AdvReac Type Severity Reaction Status Date / Time ibuprofen [From Motrin] Allergy Rash Verified 05/28/21 01:12 Active Medications: Current Medications Acetaminophen (Acetaminophen 325 Mg Tablet) 650 mg PO Q6H PRN PRN Reason: Pain, Mild (Pain Scale 1-3) Last Admin: 06/01/21 08:18 Dose: 650 mg Documented by: Albuterol Sulfate (Albuterol Sulfate 90 Mcg 8 Gm Inhaler) 2 puff INHALE Q6H PRN PRN Reason: dyspnea Albuterol/Ipratropium (Albuterol/Iprat 2.5/0.5mg 3 Ml Ampul.Neb) 3 ml INHALE RQID [facility] Last Admin: 06/01/21 11:40 Dose: 3 ml Documented by: Amlodipine Besylate (Amlodipine Besylate 5 Mg Tablet) 5 mg PO DAILY [facility]; Protocol Last Admin: 06/01/21 08:19 Dose: 5 mg Documented by: Atorvastatin Calcium (Atorvastatin Calcium 10 Mg Tablet) 10 mg PO BEDTIME [facility] Last Admin: 05/31/21 21:25 Dose: 10 mg Documented by: Baclofen (Baclofen 20 Mg Tablet) 20 mg PO TID PRN PRN Reason: muscle spasm Last Admin: 06/01/21 02:17 Dose: 20 mg Documented by: Bupropion HCl (Bupropion Hcl Xl 300 Mg Tab.Er.24h) 300 mg PO DAILY [facility] Last Admin: 06/01/21 08:19 Dose: 300 mg Documented by: Calcium Carbonate/Cholecalciferol (Calcium + Vitamin D 250 Mg Tablet) 500 mg PO BID [facility] Last Admin: 06/01/21 08:19 Dose: 500 mg Documented by: Dextrose (Dextrose 50 % 25 Gm/50 Ml Vial) 25 gm IVPUSH Q15M PRN; Protocol PRN Reason: per Hypoglycemia Standing Ord. Docusate Sodium (Docusate Sodium 100 Mg Capsule) 100 mg PO DAILY PRN PRN Reason: Constipation Enoxaparin Sodium (Enoxaparin Sodium 40 Mg/0.4 Ml Syringe) 40 mg SUBCUT Q24H [facility] Last Admin: 05/31/21 21:26 Dose: Not Given Documented by: Fluticasone/Vilanterol (Fluticasone/Vilanterol 200/25 Blst.W.Dev) 1 puff INHALE RDAILY [facility] Last Admin: 06/01/21 07:54 Dose: 1 puff Documented by: Gabapentin (Gabapentin 300 Mg Capsule) 600 mg PO TID [facility] Last Admin: 06/01/21 08:26 Dose: Not Given Documented by: Glucose (Glucose Gel 15 Gm Gel..Gram.) 15 gm PO Q15M PRN; Protocol PRN Reason: per Hypoglycemia Standing Ord. Piperacillin Sod/Tazobactam (Sod 3.375 gm/ Sodium Chloride) 50 mls @ 100 mls/hr IV Q6H [facility] Last Admin: 06/01/21 11:06 Dose: 100 mls/hr Documented by: Vancomycin HCl 1,500 mg/ (Sodium Chloride) 500 mls @ 333.333 mls/hr IV Q12H [facility] Last Admin: 06/01/21 11:44 Dose: 333.33 mls/hr Documented by: Insulin Human Lispro (Insulin Lispro 100 Unit/Ml 3 Ml Vial) 0 unit SUBCUT QIDACHS [facility]; Protocol Last Admin: 06/01/21 09:07 Dose: 6 unit Documented by: Lidocaine (Lidocaine 4 % Patch Adh..Patch) 1 patch TRANSDERMA DAILY [facility] Last Admin: 06/01/21 08:22 Dose: Not Given Documented by: Methylprednisolone Sodium Succinate (Methylprednisolone Sod Succ 40 Mg/Ml Vial) 40 mg IVPUSH Q12H [facility] Last Admin: 06/01/21 11:16 Dose: 40 mg Documented by: Metoprolol Succinate (Metoprolol Succinate Er 25 Mg Tab.Er.24h) 25 mg PO DAILY [facility]; Protocol Last Admin: 06/01/21 08:19 Dose: 25 mg Documented by: Mirtazapine (Mirtazapine 15 Mg Tablet) 15 mg PO BEDTIME [facility] Last Admin: 05/31/21 21:26 Dose: 15 mg Documented by: Montelukast Sodium (Montelukast Sodium 10 Mg Tablet) 10 mg PO BEDTIME [facility] Last Admin: 05/31/21 21:26 Dose: 10 mg Documented by: Morphine Sulfate (Morphine Sulfate 4 Mg/Ml Cartridge) 4 mg IVPUSH Q4H PRN; Protocol PRN Reason: Pain, Severe (Pain Scale 7-10) Nicotine Polacrilex (Nicotine Polacrilex 2 Mg Gum) 2 mg BUCCAL Q2H PRN PRN Reason: Smoking Cessation Last Admin: 05/30/21 22:51 Dose: 2 mg Documented by: Ondansetron HCl (Ondansetron Hcl 4 Mg/2 Ml Vial) 4 mg IVPUSH Q8H PRN PRN Reason: Nausea and Vomiting Pharmacy Consult (Consult Rx Perform Med Rec) 1 each MISCELLANE ONCE PRN PRN Reason: Consult order Pharmacy Consult (Consult Rx Vancomycin Dosing) 1 each MISCELLANE DAILY PRN PRN Reason: Consult order Prednisone (Prednisone 10 Mg Tablet) 10 mg PO DAILY [facility] Last Admin: 05/30/21 09:34 Dose: 10 mg Documented by: Sodium Chloride (0.9 % Sodium Chloride Flush 3 Ml Syringe) 3 ml IVFLUSH QSHIFT [facility] Last Admin: 06/01/21 08:22 Dose: 3 ml Documented by: Tiotropium Milner (Tiotropium Milner 18 Mcg Cap.W.Dev) 1 puff INHALE RDAILY [facility] Last Admin: 06/01/21 07:54 Dose: 1 puff Documented by: Tramadol HCl (Tramadol Hcl 50 Mg Tablet) 50 mg PO Q6H PRN PRN Reason: severe pain Vitamin D (Cholecalciferol (Vitamin D3) 25 Mcg Tablet) 50 mcg PO DAILY [facility] Last Admin: 06/01/21 08:19 Dose: 50 mcg Documented by: Zolpidem Tartrate (Zolpidem Tartrate 5 Mg Tablet) 5 mg PO BEDTIME [facility] Last Admin: 05/31/21 21:25 Dose: 5 mg Documented by: Home Medications Medication Instructions Recorded Confirmed Last Taken Type acetaminophen 650 mg 650 mg PO Q8H PRN 05/28/21 05/29/21 Unknown History tablet,extended release albuterol sulfate 90 mcg/actuation 2 puff PO Q6H PRN 05/28/21 05/29/21 Unknown History aerosol inhaler (ProAir HFA) amlodipine 5 mg tablet 5 mg PO DAILY 05/28/21 05/29/21 Unknown History atorvastatin 10 mg tablet 10 mg PO BEDTIME 05/28/21 05/29/21 Unknown History baclofen 20 mg tablet 20 mg PO TID PRN 05/28/21 05/29/21 Unknown History budesonide-formoterol HFA 160 2 puff PO BID 05/28/21 05/29/21 Unknown History mcg-4.5 mcg/actuation aerosol inhaler (Symbicort) bupropion HCl 150 mg tablet,12 hr 150 mg PO BID 05/28/21 05/29/21 Unknown History sustained-release calcium carbonate 500 mg-vitamin 1 tab PO BID 05/28/21 05/29/21 Unknown History D3 5 mcg (200 unit) tablet (Oyster Shell Calcium-Vitamin D3) cholecalciferol (vitamin D3) 50 2,000 unit PO DAILY 05/28/21 05/29/21 Unknown History mcg (2,000 unit) tablet gabapentin 300 mg capsule 600 mg PO TID 05/28/21 05/29/21 Unknown History ipratropium 20 mcg-albuterol 100 1 puff PO QID 05/28/21 05/29/21 Unknown History mcg/actuation mist for inhalation (Combivent Respimat) lidocaine 5 % topical patch 1 patch TOPICAL DAILY 05/28/21 05/29/21 Unknown History (Lidoderm) metformin 500 mg tablet 500 mg PO BID 05/28/21 05/29/21 Unknown History metoprolol succinate 25 mg 25 mg PO DAILY 05/28/21 05/29/21 Unknown History tablet,extended release 24 hr mirtazapine 30 mg tablet 15 mg PO BEDTIME 05/28/21 05/29/21 Unknown History prednisone 10 mg tablet 10 mg PO DAILY 05/28/21 05/29/21 Unknown History tiotropium bromide 2.5 2 puff PO DAILY 05/28/21 05/29/21 Unknown History mcg/actuation mist for inhalation (Spiriva Respimat) tramadol 50 mg tablet 50 mg PO Q6H PRN 05/28/21 05/29/21 Unknown History zafirlukast 20 mg tablet 20 mg PO BID 05/28/21 05/29/21 Unknown History Physical Exam Vital Signs: Vital Signs: Last Vital Signs Temp 97.7 F 06/01/21 08:41 Pulse 85 06/01/21 11:40 Resp 20 06/01/21 11:40 BP 133/78 06/01/21 08:41 Pulse Ox 96 06/01/21 08:41 BMI result Body Mass Index 27.3 Const: General: cooperative Eyes: General: appearance normal, both eyes and all related structures Resp: Effort & Inspection: normal respiratory effort Cardio: Rate: regular rate Rhythm: regular rhythm GI: Palpation (GI): Soft to palpation and nontender Extrem: Other: right elbow swelling,erythema Results Labs CBC & Chem 7: 06/01/21 08:17 06/01/21 08:17 Labs: Short CBC 06/01/21 Range/Units 08:17 WBC 25.1 H (4.8-10.8) X10*3/uL Hgb 14.4 (14.0-18.0) g/dl Hct 43.8 (42.0-52.0) % Plt Count 448 H (160-400) X10*3/uL BMP 06/01/21 08:17 Creatinine 0.89 Microbiology Microbiology Results: Microbiology 05/29/21 22:22 Blood - Venous Blood Culture - Preliminary No growth after 48 hours. 05/29/21 22:22 Blood - Venous Blood Culture - Preliminary No growth after 48 hours. Assessment and Plan (1) Cellulitis and abscess of upper extremity: Status: Acute He has redness possible staph or strep Po Augmentin and Doxycycline for ten days (2) Olecranon bursitis of right elbow: Status: Acute (3) COVID-19: Status: Acute Patient with three COVID presentations Unusual case,may be unusually susceptible. There is no need to give COVID treatment,not hypoxic.
== END 2021-06-01 16:10 | disposition home or self-care (01) | DRG 383 ==
LOC: HO.ED 21:08 → HO.EDOVER 22:08
PROVIDERS: Internal Medicine; Admitting Provider Internal Medicine; Emergency Provider Emergency Medicine; PCP Family Medicine; Visit Provider Nurse Practitioner Acute Care
DX: L02.413 Cutaneous abscess of right upper limb (principal); U07.1 COVID-19; J44.1 Chronic obstructive pulmonary disease with (acute) exacerbation; M70.21 Olecranon bursitis, right elbow; D72.829 Elevated white blood cell count, unspecified; L03.113 Cellulitis of right upper limb; F17.210 Nicotine dependence, cigarettes, uncomplicated; Z71.6 Tobacco abuse counseling; Z88.6 Allergy status to analgesic agent; Z79.84 Long term (current) use of oral hypoglycemic drugs; Z79.899 Other long term (current) drug therapy
CPT/HCPCS: 36415; 80048; 80202; 80307; 82565; 82947; 83605; 85025; 85027; 85652; 86140; 87040; 87635; 99285; J1650; J1885; J2543; J2920; J3370

== ENCOUNTER 2021-07-19 07:17 | Outpatient (REF) | payer MEDICAID, SELFPAY | END 2021-07-19 07:18 | disposition home or self-care (01) | LOC: HO.HOSX 07:17 | PROVIDERS: Visit Provider Physician Assistant | DX: Z13.89 Encounter for screening for other disorder (principal) ==

== ENCOUNTER → 2021-07-26 13:39 | Outpatient (BNVA) | payer MEDICAID, SELFPAY | PROVIDERS: PCP Family Medicine; Referring Provider Family Medicine; Visit Provider Nurse Practitioner | DX: K59.04 Chronic idiopathic constipation (principal); K21.9 Gastro-esophageal reflux disease without esophagitis; N48.1 Balanitis; D12.6 Benign neoplasm of colon, unspecified | CPT/HCPCS: 99212 ==

== ENCOUNTER 2021-08-02 09:21 | Outpatient (REF) | payer MEDICAID, SELFPAY ==
--- NOTE | 2021-08-02 16:10 | PFT_ITS ---
INDICATION: COPD. SPIROMETRY: FEV1 to FVC of 41% with an FEV1 of 1.72 L, which is 48% predicted, FVC of 4.2 L, which is 92% predicted. No significant response to bronchodilators noted. To note, the [id number] down to 19% predicted consistent with severe small airways disease. Maximum voluntary ventilation 32% predicted. LUNG VOLUMES: Total lung capacity 91% predicted with residual volume 86% predicted. DIFFUSION CAPACITY: DLCO 51% predicted. COMPARISONS: PFTs from 2014. INTERPRETATION: There is an obstructive ventilatory defect consistent with severe COPD. No significant response to bronchodilators noted. The patient also has severe small airways disease, likely asthma COPD overlap syndrome. Maximum voluntary ventilation 32% predicted, which is a severe decrease likely secondary to deconditioning. Lung volumes are within normal limits, although low normal for somebody with significant COPD and also has a moderate diffusion impairment. When compared to 2014, there is a significant decrease in the FVC, trend decrease in the FEV1, no significant change in the total lung capacity, but a significant decrease in the diffusion capacity. Clinical correlation warranted. MD SHANTA Sanchez/MODL / [id number]
== END 2021-08-02 09:22 | disposition home or self-care (01) ==
LOC: HO.RESP 09:21
PROVIDERS: PCP Family Medicine; Visit Provider Hospitalist
DX: R91.8 Other nonspecific abnormal finding of lung field (principal); J44.9 Chronic obstructive pulmonary disease, unspecified
CPT/HCPCS: 94060; 94727; 94729

== ENCOUNTER → 2021-08-08 10:05 | Outpatient (BNVA) | payer MEDICAID, SELFPAY | PROVIDERS: PCP Family Medicine; Visit Provider Hospitalist | DX: J45.21 Mild intermittent asthma with (acute) exacerbation (principal); J41.8 Mixed simple and mucopurulent chronic bronchitis; F17.210 Nicotine dependence, cigarettes, uncomplicated | CPT/HCPCS: 99212 ==

== ENCOUNTER 2021-09-16 01:35 | Emergency (ER) | payer MEDICAID, SELFPAY ==
--- NOTE | 2021-09-16 | ECG_ITS ---
Test Reason : cp Blood Pressure : / mmHG Vent. Rate : 103 BPM Atrial Rate : 103 BPM P-R Int : 138 ms QRS Dur : 068 ms QT Int : 318 ms P-R-T Axes : 065 033 071 degrees QTc Int : 416 ms Sinus tachycardia Nonspecific ST and T wave abnormality Borderline ECG When compared with ECG of 16-SEP-2019 00:15, No significant change was found Referred By: Generic ED Physician Electronically Signed By:LORI VERDIN
[2021-09-16 01:54] VITALS: BP 151/91; PULSE 104; RESP 22; TEMP 36.9; O2SAT 95; BMI 26.9
[2021-09-16 02:06] LABS: Basophils Absolute Auto 0.1 X10*3/uL (0.0-0.2); Basophils Percent Auto 0.4 % (0-2); Eosinophils Absolute Auto 0.2 X10*3/uL (0.0-0.4); Hematocrit 44.2 % (42.0-52.0); Hemoglobin 14.8 g/dl (14.0-18.0); Imm Gran Abs Auto 0.15 X10*3/uL (0.00-0.03); Imm Gran Pct Auto 0.8 % (0.0-0.4); Lymphocytes Absolute Auto 4.5 X10*3/uL (1.2-4.9); Lymphocytes Percent Auto 24.3 % (20-40); MANUAL DIFF FLAG SCAN; Mean Corpuscular HGB Conc 33.5 g/dl (31.0-36.0); Mean Corpuscular Hemoglobin 30.1 pg (27.0-33.0); Mean Corpuscular Volume 89.8 fL (80.0-98.0); Mean Platelet Volume 8.3 fL (9.4-12.4); Monocytes Absolute Auto 1.8 X10*3/uL (0.1-1.2); Monocytes Percent Auto 9.5 % (2-11); Neutrophils Absolute Auto 11.9 x10*3/uL (2.0-8.3); Platelet Count 358 X10*3/uL (160-400); Red Blood Count 4.92 X10*6/uL (4.60-5.80); Red Cell Distribution Width 13.6 % (11.0-16.0); SCAN SMEAR FLAG 1; White Blood Count 18.6 X10*3/uL (4.8-10.8)
[2021-09-16 02:12] LABS: COVID-19 Test Negative (Negative)
[2021-09-16 02:24] LABS: Alanine Aminotransferase 22 U/L (0-40); Albumin Level 4.3 g/dL (3.5-5.0); Alkaline Phosphatase 95 U/L (39-117); Anion Gap 14 (12-20); Aspartate Amino Transferase 20 U/L (5-37); Bilirubin Total 0.3 mg/dL (0.0-1.0); Blood Urea Nitrogen 18 mg/dL (9-16); Calcium 9.4 mg/dL (8.4-10.2); Carbon Dioxide 26 mmol/L (22-29); Chloride 100 mmol/L (96-108); Creatinine Clr Calc Pharmacy 75.8; Estimated Glomerular Filt Rate > 60; Glucose Random 171 mg/dL (60-115); Potassium 3.6 mmol/L (3.3-5.1); Sodium 136 mmol/L (135-145); Total Protein 7.1 g/dL (6.5-8.0)
[2021-09-16 02:30] LABS: Troponin-I High Sensitivity 4.9 ng/L (<3.5-35.0)
[2021-09-16 02:32] LABS: SLIDE REVIEW VERIFIED
--- NOTE | 2021-09-16 02:36 | ED.CHESTPAIN ---
HPI - Chest Pain General Chief Complaint: Chest Pain Stated Complaint: chest pain, L arm tingling up tp neck Time Seen by Provider: 09/16/21 02:36 Source: patient Mode of arrival: ambulatory History of Present Illness HPI narrative: Patient with history of COPD asthma overlap syndrome, hyperlipidemia, hypertension, IBS comes here for left-sided chest pain for last 3 days today prior to arrival patient noticed pain left-sided got worse with pain on the left side of the neck and tingling sensation on the left arm no shortness of breath no diaphoresis no nausea no vomiting patient never had similar pain in the past pain feels like pressure Related Data Home Medications Medication Instructions Recorded Confirmed acetaminophen 650 mg 650 mg PO Q8H PRN Pain 05/28/21 05/29/21 tablet,extended release albuterol sulfate 90 mcg/actuation 2 puff PO Q6H PRN dyspnea 05/28/21 05/29/21 aerosol inhaler (ProAir HFA) amlodipine 5 mg tablet 5 mg PO DAILY 05/28/21 05/29/21 atorvastatin 10 mg tablet 10 mg PO BEDTIME 05/28/21 05/29/21 baclofen 20 mg tablet 20 mg PO TID PRN muscle spasm 05/28/21 05/29/21 budesonide-formoterol HFA 160 2 puff PO BID 05/28/21 05/29/21 mcg-4.5 mcg/actuation aerosol inhaler (Symbicort) bupropion HCl 150 mg tablet,12 hr 150 mg PO BID 05/28/21 05/29/21 sustained-release calcium carbonate 500 mg-vitamin 1 tab PO BID 05/28/21 05/29/21 D3 5 mcg (200 unit) tablet (Oyster Shell Calcium-Vitamin D3) cholecalciferol (vitamin D3) 50 2,000 unit PO DAILY 05/28/21 05/29/21 mcg (2,000 unit) tablet gabapentin 300 mg capsule 600 mg PO TID 05/28/21 05/29/21 lidocaine 5 % topical patch 1 patch topical DAILY 05/28/21 05/29/21 (Lidoderm) metformin 500 mg tablet 500 mg PO BID 05/28/21 05/29/21 metoprolol succinate 25 mg 25 mg PO DAILY 05/28/21 05/29/21 tablet,extended release 24 hr mirtazapine 30 mg tablet 15 mg PO BEDTIME 05/28/21 05/29/21 tiotropium bromide 2.5 2 puff PO DAILY 05/28/21 05/29/21 mcg/actuation mist for inhalation (Spiriva Respimat) tramadol 50 mg tablet 50 mg PO Q6H PRN severe pain 05/28/21 05/29/21 zafirlukast 20 mg tablet 20 mg PO BID 05/28/21 05/29/21 clotrimazole 1 % topical cream appl topical 07/26/21 Previous Rx's Medication Instructions Recorded famotidine 40 mg tablet (Pepcid) 40 mg PO BEDTIME #30 tabs 07/26/21 linaclotide 290 mcg capsule 290 mcg PO QAM 30 days #30 caps 07/26/21 (Linzess) qoalde-spjoumjh-cfcipwz 1 cap PO QID 30 days #120 caps 07/26/21 24,000-76,000-120,000 unit capsule,delayed rel (Creon) magnesium citrate 296 ml PO DAILY 2 days #592 mL 07/26/21 nystatin 100,000 unit/gram topical 1 appl topical TID #15 grams 07/26/21 cream omeprazole 40 mg capsule,delayed 40 mg PO DAILY 30 days #30 caps 07/26/21 release peg 3350-electrolytes 236 240 ml PO Q10M 1 day #4,000 mL 07/26/21 gram-22.74 gram-6.74 gram-5.86 gram solution (Golytely) fluticasone fur. 200 mcg-umeclid 1 inh inhalation DAILY 30 days #60 08/08/21 62.5 mcg-vilant 25 mcg ea inhalat.powder (Trelegy Ellipta) fluticasone furoate 200 1 inh inhalation DAILY 30 days #60 08/08/21 mcg-vilanterol 25 mcg/dose ea inhalation powder (Breo Ellipta) nicotine 10 mg inhalation 1 inh inhalation Q2-4H PRN 08/08/21 cartridge (Nicotrol) nicotine cravings 30 days #168 ea prednisone 10 mg tablet 10 mg PO BID #60 tabs 08/08/21 umeclidinium 62.5 mcg/actuation 1 inh inhalation DAILY 30 days #30 08/08/21 blister powder for inhalation ea (Incruse Ellipta) ipratropium 20 mcg-albuterol 100 1 puff PO QID #4 grams 08/19/21 mcg/actuation mist for inhalation (Combivent Respimat) ipratropium 20 mcg-albuterol 100 1 puff inhalation Q6H 30 days #4 09/14/21 mcg/actuation mist for inhalation grams (Combivent Respimat) aspirin 81 mg capsule 81 mg PO DAILY #30 caps 09/16/21 Allergies Allergy/AdvReac Type Severity Reaction Status Date / Time ibuprofen [From Motrin] Allergy Rash Verified 08/08/21 10:28 Review of Systems Review of Systems: Yes all other systems are reviewed and are negative [facility] Past Medical History Medical History Anxiety and depression Arthritis Asthma Asthma-COPD overlap syndrome Back pain Chronic abdominal pain COPD (chronic obstructive pulmonary disease) COPD (chronic obstructive pulmonary disease) Elevated cholesterol GERD (gastroesophageal reflux disease) History of kidney stones HTN (hypertension) Irritable bowel syndrome Osteoporosis Tobacco dependence Tubular adenoma of colon Surgical History Carpal tunnel syndrome (~08/2014) H/O wrist surgery History of hydrocelectomy Hx of colonoscopy S/P carpal tunnel release S/P extracorporeal shock wave therapy Shoulder symptoms with history of shoulder arthroplasty Status post hip surgery Family History Family History Father No problems noted. Mother No problems noted. Son No problems noted. Daughter No problems noted. Social History Social History Alcohol intake: current Alcohol intake frequency: does not drink Patient Tobacco Use Status: Current everyday Tobacco user Cigarette Packs Per Day: 0.5 Cigarettes Per Day: 10.0 Years Smoked: 18 Second Hand Smoke Exposure: No Advance Directives: Yes Advance Directives on File: Yes Advance Directives Date on File: 05/30/21 service: No Current occupational status: disabled Physical Exam Vital Signs: Vital Signs: Last Vital Signs Temp 97.8 F 09/16/21 03:46 Pulse 86 09/16/21 05:42 Resp 14 09/16/21 05:42 BP 117/77 09/16/21 05:42 Pulse Ox 97 09/16/21 05:42 O2 Del Method 09/16/21 05:42 BMI result Body Mass Index 26.9 Appearance: Alert. Oriented X3. No acute distress. Eyes: PERRLA, No Nystagmus ENT: Pharynx normal. Oral Mucosa moist Neck: Normal inspection. Neck supple. CVS: Normal heart rate and rhythm. Pulses normal. No rub or gallop Respiratory: No respiratory distress. Equal air entry bilateral, no wheezing/rales/rhonchi Abdomen: Soft and nontender. Bowel sounds are present, no mass palpable, no CVA tenderness Skin: Skin warm and dry. Normal skin color. Normal skin turgor. Extremities: No lower extremity edema. No calf tenderness Neuro: Oriented X 3. No motor deficit. No sensory deficit.No cerebellar signs , cranial nerves II-XII intact MDM - Chest Pain MDM Narrative Medical decision making narrative: . Patient with Atypical chest pain without any ischemic changes 2 sets of troponin negative EKG without ischemic changes discharge patient home advised to follow up with telephone instrument supervisor/PCP for further evaluation patient is sleeping during stay in the ER without any distress Medical Records Data Attestation: I reviewed the patient's medical records. Lab Data Attestation: I reviewed the patient's lab results. Result diagrams: 09/16/21 01:44 09/16/21 01:44 Labs: Lab Results 09/16/21 09/16/21 09/16/21 Range/Units 01:44 01:44 01:44 WBC 18.6 H (4.8-10.8) X10*3/uL RBC 4.92 (4.60-5.80) X10*6/uL Hgb 14.8 (14.0-18.0) g/dl Hct 44.2 (42.0-52.0) % MCV 89.8 (80.0-98.0) fL MCH 30.1 (27.0-33.0) pg MCHC 33.5 (31.0-36.0) g/dl RDW 13.6 (11.0-16.0) % Plt Count 358 (160-400) X10*3/uL MPV 8.3 L (9.4-12.4) fL Immature Gran % (Auto) 0.8 H (0.0-0.4) % Neut % (Auto) 64.0 (45-73) % Lymph % (Auto) 24.3 (20-40) % Dodge % (Auto) 9.5 (2-11) % Eos % (Auto) 1.0 (0-4) % Baso % (Auto) 0.4 (0-2) % Lymph # (Auto) 4.5 (1.2-4.9) X10*3/uL Dodge # (Auto) 1.8 H (0.1-1.2) X10*3/uL Eos # (Auto) 0.2 (0.0-0.4) X10*3/uL Baso # (Auto) 0.1 (0.0-0.2) X10*3/uL Abs Immat Gran (auto) 0.15 H (0.00-0.03) X10*3/uL Absolute Neuts (auto) 11.9 H (2.0-8.3) x10*3/uL Absolute Nucleated RBC 0.000 (0.0-0.012) X10*3/uL Nucleated RBC % (auto) 0.0 (0.0-0.2) /100WBC Smear Tech's Comments VERIFIED Sodium 136 (135-145) mmol/L Potassium 3.6 (3.3-5.1) mmol/L Chloride 100 (96-108) mmol/L Carbon Dioxide 26 (22-29) mmol/L Anion Gap 14 (12-20) BUN 18 H D (9-16) mg/dL Creatinine 1.09 (0.5-1.4) mg/dL Estim Creat Clear Calc 75.8 Estimated GFR > 60 Random Glucose 171 H (60-115) mg/dL Calcium 9.4 (8.4-10.2) mg/dL Total Bilirubin 0.3 (0.0-1.0) mg/dL AST 20 D (5-37) U/L ALT 22 (0-40) U/L Alkaline Phosphatase 95 D (39-117) U/L Troponin I High Sens 4.9 (<3.5-35.0) ng/L Total Protein 7.1 (6.5-8.0) g/dL Albumin 4.3 (3.5-5.0) g/dL COVID-19 (ADRIANO) (Negative) COVID-19 Clin Com 09/16/21 09/16/21 Range/Units 01:44 04:29 WBC (4.8-10.8) X10*3/uL RBC (4.60-5.80) X10*6/uL Hgb (14.0-18.0) g/dl Hct (42.0-52.0) % MCV (80.0-98.0) fL MCH (27.0-33.0) pg MCHC (31.0-36.0) g/dl RDW (11.0-16.0) % Plt Count (160-400) X10*3/uL MPV (9.4-12.4) fL Immature Gran % (Auto) (0.0-0.4) % Neut % (Auto) (45-73) % Lymph % (Auto) (20-40) % Dodge % (Auto) (2-11) % Eos % (Auto) (0-4) % Baso % (Auto) (0-2) % Lymph # (Auto) (1.2-4.9) X10*3/uL Dodge # (Auto) (0.1-1.2) X10*3/uL Eos # (Auto) (0.0-0.4) X10*3/uL Baso # (Auto) (0.0-0.2) X10*3/uL Abs Immat Gran (auto) (0.00-0.03) X10*3/uL Absolute Neuts (auto) (2.0-8.3) x10*3/uL Absolute Nucleated RBC (0.0-0.012) X10*3/uL Nucleated RBC % (auto) (0.0-0.2) /100WBC Smear Tech's Comments Sodium (135-145) mmol/L Potassium (3.3-5.1) mmol/L Chloride (96-108) mmol/L Carbon Dioxide (22-29) mmol/L Anion Gap (12-20) BUN (9-16) mg/dL Creatinine (0.5-1.4) mg/dL Estim Creat Clear Calc Estimated GFR Random Glucose (60-115) mg/dL Calcium (8.4-10.2) mg/dL Total Bilirubin (0.0-1.0) mg/dL AST (5-37) U/L ALT (0-40) U/L Alkaline Phosphatase (39-117) U/L Troponin I High Sens 5.2 (<3.5-35.0) ng/L Total Protein (6.5-8.0) g/dL Albumin (3.5-5.0) g/dL COVID-19 (ADRIANO) Negative (Negative) COVID-19 Clin Com See Note ECG Data ECG #1: Attestation: I personally reviewed and interpreted this ECG as follows: Interpretation: Sinus tachycardia heart rate 103 beats per minute normal interval normal axis no acute ST wave changes no acute ischemia Discharge Plan Discharge Clinical Impression: Chest pain Patient Disposition: Home, Self-Care Instructions: Chest Pain (ED) Additional Instructions: Take baby aspirin daily Follow with PCP /telephone instrument supervisor for further evaluation Report to the ER if worsening of the pain Prescriptions: New aspirin 81 mg capsule 81 mg PO DAILY Qty: 30 0RF No Action magnesium citrate Solution 296 ml PO DAILY 2 Days Qty: 592 0RF Rx Instructions: DIspense 2 296mL bottles Breo Ellipta 200-25 mcg/dose blister with device 1 inh inhalation DAILY 30 Days Qty: 60 11RF Incruse Ellipta 62.5 mcg/actuation blister with device 1 inh inhalation DAILY 30 Days Qty: 30 11RF Combivent Respimat 20-100 mcg/actuation mist 1 puff PO QID Qty: 4 0RF Combivent Respimat 20-100 mcg/actuation mist 1 puff inhalation Q6H 30 Days Qty: 4 1RF metformin 500 mg tablet 500 mg PO BID bupropion HCl 150 mg tablet sustained-release 12 hr 150 mg PO BID atorvastatin 10 mg tablet 10 mg PO BEDTIME amlodipine 5 mg tablet 5 mg PO DAILY tramadol 50 mg tablet 50 mg PO Q6H PRN (Reason: severe pain) acetaminophen 650 mg tablet extended release 650 mg PO Q8H PRN (Reason: Pain) baclofen 20 mg tablet 20 mg PO TID PRN (Reason: muscle spasm) mirtazapine 30 mg tablet 15 mg PO BEDTIME lidocaine [Lidoderm] 5 % adhesive patch,medicated 1 patch topical DAILY zafirlukast 20 mg tablet 20 mg PO BID gabapentin 300 mg capsule 600 mg PO TID metoprolol succinate 25 mg tablet extended release 24 hr 25 mg PO DAILY albuterol sulfate [ProAir HFA] 90 mcg/actuation HFA aerosol inhaler 2 puff PO Q6H PRN (Reason: dyspnea) calcium carbonate-vitamin D3 [Oyster Shell Calcium-Vit D3] 500 mg-5 mcg (200 unit) tablet 1 tab PO BID budesonide-formoterol [Symbicort] 160-4.5 mcg/actuation HFA aerosol inhaler 2 puff PO BID cholecalciferol (vitamin D3) 50 mcg (2,000 unit) tablet 2,000 unit PO DAILY Spiriva Respimat 2.5 mcg/actuation mist 2 puff PO DAILY Trelegy Ellipta 200-62.5-25 mcg blister with device 1 inh inhalation DAILY 30 Days Qty: 60 12RF prednisone 10 mg tablet 10 mg PO BID Qty: 60 3RF Nicotrol 10 mg cartridge 1 inh inhalation Q2-4H PRN (Reason: nicotine cravings) 30 Days Qty: 168 0RF clotrimazole 1 % cream topical peg 3350-electrolytes [Golytely] 236-22.74-6.74 -5.86 gram recon soln 240 ml PO Q10M 1 Days Qty: 4000 0RF Rx Instructions: until fecal effluent is clear; do not exceed a total volume of 2,000 mL Linzess 290 mcg capsule 290 mcg PO QAM 30 Days Qty: 30 0RF omeprazole 40 mg capsule,delayed release(DR/EC) 40 mg PO DAILY 30 Days Qty: 30 3RF Creon 24,000-76,000 -120,000 unit capsule,delayed release(DR/EC) 1 cap PO QID 30 Days Qty: 120 1RF Rx Instructions: administer with meals and/or snacks famotidine [Pepcid] 40 mg tablet 40 mg PO BEDTIME Qty: 30 6RF nystatin 100,000 unit/gram cream 1 appl topical TID Qty: 15 0RF Referrals: Joe Rao MD [Physician] - 1 week Interventions: ED Discharge Assessment Last Done: 09/16/21 05:45 Discharge Date/Time: 09/16/21 05:45
[2021-09-16] MEDS: Aspirin Enteric Coated 81 MG TABLET.DR 162 MG PO (03:05)
[2021-09-16] MEDS: Nitroglycerin 2 % Oint 1 GM Packet 1 INCH TRANSDERMA (03:05)
[2021-09-16 03:46] VITALS: BP 139/81; PULSE 88; RESP 14; TEMP 36.6; O2SAT 92
[2021-09-16 04:57] LABS: Troponin-I High Sensitivity 5.2 ng/L (<3.5-35.0)
[2021-09-16 05:42] VITALS: BP 117/77; PULSE 86; RESP 14; O2SAT 97
== END 2021-09-16 05:45 | disposition home or self-care (01) ==
PROVIDERS: Emergency Provider Internal Medicine; PCP Family Medicine
DX: R07.89 Other chest pain (principal); M54.2 Cervicalgia; I10 Essential (primary) hypertension; F17.210 Nicotine dependence, cigarettes, uncomplicated; Z71.6 Tobacco abuse counseling; Z20.822 Contact with and (suspected) exposure to COVID-19; Z79.899 Other long term (current) drug therapy
CPT/HCPCS: 36415; 80053; 84484; 85025; 87635; 93005; 99283; 99284

== ENCOUNTER → 2021-11-14 10:02 | Outpatient (BNVA) | payer MEDICAID, SELFPAY | PROVIDERS: PCP Family Medicine; Visit Provider Hospitalist | DX: J41.8 Mixed simple and mucopurulent chronic bronchitis (principal); J45.50 Severe persistent asthma, uncomplicated; F17.210 Nicotine dependence, cigarettes, uncomplicated | CPT/HCPCS: 99212 ==

== ENCOUNTER → 2021-11-24 09:11 | Outpatient (BNVA) | payer MEDICAID, SELFPAY | PROVIDERS: PCP Family Medicine; Referring Provider Family Medicine; Visit Provider Internal Medicine | DX: R07.2 Precordial pain (principal); I25.10 Atherosclerotic heart disease of native coronary artery without angina pectoris | CPT/HCPCS: 99212 ==

== ENCOUNTER 2021-12-16 15:03 | Outpatient (REF) | payer MEDICAID, SELFPAY ==
--- NOTE | ~2021-12-16 | CT_ITS ---
EXAMINATION: CT CHEST SCREENING CLINICAL INFORMATION: Current smoker. 45 pack year history. COMPARISON: Previous chest CT May 2020 TECHNIQUE: This CT examination was performed using dose optimization techniques as appropriate, variously including the following: *Automated exposure control *Adjustment of mA and/or kV according to patient size (this includes techniques or standardized protocols for targeted exams where dose is matched to indication/reason for exam; i.e. extremities or head) *Use of iterative reconstruction technique DLP: 46 mGy-cm FINDINGS: LUNGS: There are multiple areas of bronchial wall thickening and bronchial soft tissue opacification. This is greatest in the left lower lobe. There is a 3 x 5 mm right middle lobe nodule axial image 280 series 5 that is stable and may be related to bronchial soft tissue opacification. No central bronchial or endotracheal lesion is seen. MEDIASTINUM: There is atherosclerotic disease. The mediastinum is otherwise normal. CORONARY ARTERY CALCIFICATION: Mild PLEURA: There is no pleural effusion. No pleural mass or thickening. AXILLA: No lymphadenopathy. UPPER ABDOMEN: Unremarkable OSSEOUS STRUCTURES: Degenerative changes of the spine and left shoulder. Old rib fractures. CT/CT lung screening IMPRESSION: Scattered areas of bronchial wall thickening and soft tissue opacification suggestive of airways disease. This appears similar to May 2020 exam. Mild coronary artery calcification. ASSESSMENT: Lung-RADS category 2: Benign RECOMMENDATION: Annual low-dose chest CT follow-up recommended.
== END 2021-12-16 15:04 | disposition home or self-care (01) ==
LOC: HO.CT 15:03
PROVIDERS: PCP Family Medicine; Visit Provider Physician Assistant Medical
DX: Z12.2 Encounter for screening for malignant neoplasm of respiratory organs (principal); F17.210 Nicotine dependence, cigarettes, uncomplicated
CPT/HCPCS: 71271; G0296

== ENCOUNTER → 2022-01-18 11:05 | Day surgery (SDC) | payer MEDICAID, SELFPAY ==
--- NOTE | 2022-01-17 11:57 | HO.ANESPROP2 ---
HPI - Anesthesia Eval Consult details Narrative: 51yo M for Colonoscopy [facility] Active Problems Active Problems: All Active Problems (Updated 12/16/21 @ 15:01 by Shayy Valladares PA-C) Nicotine dependence, cigarettes, uncomplicated (Acute) Coronary artery calcification seen on CT scan (Acute) Precordial chest pain (Acute) Asthma-COPD overlap syndrome (Acute) Asthma (Acute) Pulmonary nodules (Acute) Personal history of nicotine dependence (Acute) HTN (hypertension) (Acute) Hyperlipidemia (Acute) Leukocytosis (Acute) Osteoporosis (Acute ~2001) GERD (gastroesophageal reflux disease) (Acute) Irritable bowel syndrome (Acute) Chronic idiopathic constipation (Acute) Tubular adenoma of colon (Acute ~2019) Abdominal bloating (Acute) Chronic abdominal pain (Acute) Lump in the abdomen (Acute) Balanitis (Acute) Penile discharge (Acute) Pain with urination (Acute) Abscess (Acute) Cellulitis and abscess of upper extremity (Acute) Olecranon bursitis of right elbow (Acute) Past Medical History Medical History (Updated 12/16/21 @ 15:01 by Shayy Valladares PA-C) Anxiety and depression Arthritis Asthma Asthma-COPD overlap syndrome Back pain Chronic abdominal pain COPD (chronic obstructive pulmonary disease) GERD (gastroesophageal reflux disease) History of COVID-19 History of kidney stones HTN (hypertension) Hyperlipidemia Irritable bowel syndrome Leukocytosis Osteoporosis (~2001) Personal history of nicotine dependence Tubular adenoma of colon (~2019) Family History Family History Father No problems noted. Mother No problems noted. Son No problems noted. Daughter No problems noted. Surgical History Surgical History History of bilateral hip replacements History of colonoscopy (~2005) History of colonoscopy with polypectomy (~2020) History of hip surgery (~2001) History of hydrocelectomy History of surgery on right wrist (~2014) S/P extracorporeal shock wave therapy (~2013) Shoulder symptoms with history of shoulder arthroplasty Social History Social History (Updated 12/16/21 @ 15:02 by Shayy Valladares PA-C) Alcohol intake: current Alcohol intake frequency: does not drink Patient Tobacco Use Status: Current everyday Tobacco user Tobacco use type: Cigarette Cigarette Packs Per Day: 0.5 Years Smoked: (onset 14yo, 1/2-3/4ppd x 37yrs, 23pyh) Second Hand Smoke Exposure: No Advance Directives Date on File: 05/30/21 service: No Current occupational status: disabled Meds Allergies Allergy/AdvReac Type Severity Reaction Status Date / Time ibuprofen [From Motrin] Allergy Rash Verified 11/24/21 09:24 Home Medications Medication Instructions Recorded Confirmed Last Taken Type acetaminophen 650 mg 650 mg PO Q8H PRN Pain 05/28/21 01/13/22 Unknown History tablet,extended release albuterol sulfate 90 mcg/actuation 2 puff PO Q6H PRN dyspnea 05/28/21 01/13/22 Unknown History aerosol inhaler (ProAir HFA) amlodipine 5 mg tablet 5 mg PO DAILY 05/28/21 01/13/22 Unknown History atorvastatin 10 mg tablet 10 mg PO BEDTIME 05/28/21 01/13/22 Unknown History baclofen 20 mg tablet 20 mg PO TID PRN muscle spasm 05/28/21 01/13/22 Unknown History calcium carbonate 500 mg-vitamin 1 tab PO BID 05/28/21 01/13/22 Unknown History D3 5 mcg (200 unit) tablet (Oyster Shell Calcium-Vitamin D3) cholecalciferol (vitamin D3) 50 2,000 unit PO DAILY 05/28/21 01/13/22 Unknown History mcg (2,000 unit) tablet gabapentin 300 mg capsule 600 mg PO TID 05/28/21 01/13/22 Unknown History lidocaine 5 % topical patch 1 patch topical DAILY 05/28/21 01/13/22 Unknown History (Lidoderm) metformin 500 mg tablet 500 mg PO BID 05/28/21 01/13/22 Unknown History metoprolol succinate 25 mg 25 mg PO DAILY 05/28/21 01/13/22 Unknown History tablet,extended release 24 hr mirtazapine 30 mg tablet 15 mg PO BEDTIME 05/28/21 01/13/22 Unknown History tiotropium bromide 2.5 2 puff PO DAILY 05/28/21 01/13/22 Unknown History mcg/actuation mist for inhalation (Spiriva Respimat) tramadol 50 mg tablet 50 mg PO Q6H PRN severe pain 05/28/21 01/13/22 Unknown History clotrimazole 1 % topical cream appl topical 07/26/21 11/24/21 Unknown History Exam Exam Date and Time: January 17, 2022 1157 Pertinent Lab Results Pertinent Lab Results: Laboratory Tests 09/16/21 09/16/21 01:44 01:44 WBC 18.6 H Hgb 14.8 Hct 44.2 Plt Count 358 Sodium 136 Potassium 3.6 Chloride 100 Carbon Dioxide 26 BUN 18 H D Creatinine 1.09
== END ==
PROVIDERS: PCP Family Medicine; Visit Provider Internal Medicine
DX: K59.04 Chronic idiopathic constipation (principal); Z53.20 Procedure and treatment not carried out because of patient's decision for unspecified reasons

== ENCOUNTER 2022-02-13 12:51 | Outpatient (REF) | payer MEDICAID, SELFPAY ==
[2022-02-13 13:00] LABS: MANUAL DIFF FLAG NO
[2022-02-13 13:19] LABS: Basophils Absolute Auto 0.1 X10*3/uL (0.0-0.2); Basophils Percent Auto 0.6 % (0-2); Eosinophils Absolute Auto 0.1 X10*3/uL (0.0-0.4); Eosinophils Percent Auto 0.5 % (0-4); Hematocrit 45.5 % (42.0-52.0); Hemoglobin 14.8 g/dl (14.0-18.0); Imm Gran Abs Auto 0.13 X10*3/uL (0.00-0.03); Imm Gran Pct Auto 0.8 % (0.0-0.4); Lymphocytes Absolute Auto 3.9 X10*3/uL (1.2-4.9); Lymphocytes Percent Auto 24.7 % (20-40); Mean Corpuscular HGB Conc 32.5 g/dl (31.0-36.0); Mean Corpuscular Hemoglobin 29.8 pg (27.0-33.0); Mean Corpuscular Volume 91.5 fL (80.0-98.0); Mean Platelet Volume 8.6 fL (9.4-12.4); Monocytes Absolute Auto 1.3 X10*3/uL (0.1-1.2); Monocytes Percent Auto 8.2 % (2-11); Neutrophils Absolute Auto 10.3 x10*3/uL (2.0-8.3); Neutrophils Percent Auto 65.2 % (45-73); Platelet Count 340 X10*3/uL (160-400); Red Blood Count 4.97 X10*6/uL (4.60-5.80); Red Cell Distribution Width 13.2 % (11.0-16.0); White Blood Count 15.9 X10*3/uL (4.8-10.8)
[2022-02-13 14:20] LABS: Erythrocyte Sedimentation Rate 6 MM/HR (0-15)
== END 2022-02-13 12:52 | disposition home or self-care (01) ==
LOC: HO.LAB 12:51
PROVIDERS: PCP Family Medicine; Visit Provider Hospitalist
DX: J45.51 Severe persistent asthma with (acute) exacerbation (principal)
CPT/HCPCS: 36415; 82785; 85025; 85652

== ENCOUNTER → 2022-02-20 09:54 | Outpatient (BNVA) | payer MEDICAID, SELFPAY | PROVIDERS: PCP Family Medicine; Visit Provider Hospitalist | DX: J41.8 Mixed simple and mucopurulent chronic bronchitis (principal); J45.50 Severe persistent asthma, uncomplicated; F17.210 Nicotine dependence, cigarettes, uncomplicated; Z79.52 Long term (current) use of systemic steroids | CPT/HCPCS: 99212 ==

== ENCOUNTER → 2022-03-09 14:25 | Outpatient (BNVA) | payer MEDICAID, SELFPAY | PROVIDERS: PCP Family Medicine; Visit Provider Nurse Practitioner | DX: K59.04 Chronic idiopathic constipation (principal); K21.9 Gastro-esophageal reflux disease without esophagitis; D12.6 Benign neoplasm of colon, unspecified; N48.1 Balanitis; F17.210 Nicotine dependence, cigarettes, uncomplicated | CPT/HCPCS: 99212 ==

== ENCOUNTER → 2022-03-30 09:55 | Outpatient (REF) | payer MEDICAID, SELFPAY ==
--- NOTE | ~2022-03-30 | NM_ITS ---
Myocardial perfusion study Indication: Precordial chest pain to evaluate for myocardial ischemia Technique: The patient was brought in for a Lexiscan perfusion study on 03/30/2022. Patient performed low-level exercise and was injected 0.4 mg of Lexiscan intravenously. Within a minute of injection, 25 mCi of sestamibi was given intravenously. Images were obtained using the SPECT gamma camera interlaced with the gating device. Images were obtained in supine position. Resting perfusion study was performed on 03/31/2022. Patient was administered 25 mCi of sestamibi intravenously at rest. Images were then obtained in supine position. Images obtained with and without CT attenuation. Total DLP 98 mGy-cm. Images were processed with the software and compared side to side in short axis, horizontal long axis and vertical long axis views. Findings: The stress perfusion study showed non attenuated images show mildly to moderately reduced uptake in the basal inferior wall of the LV myocardium. Remainder of the LV myocardium is normally perfused. Attenuation corrected images show normal uptake of myocardium. The gated study shows normal LV systolic function with calculated LVEF of 65%. LV cavity is normal in size. The gated study shows normal systolic wall thickening and contraction of segments. Resting study shows no change in perfusion pattern compared to stress perfusion study. Gating at rest reveals normal systolic wall motion with ejection fraction at 65%. The findings are consistent with normal myocardial perfusion. NM/NM cardiolite stress test Impression: 1. Myocardial perfusion imaging study shows normal myocardial perfusion 2. Gated LVEF is 65% 3. Transient ischemic dilatation not present EKG is nondiagnostic for ischemia
--- NOTE | 2022-03-30 09:57 | CA_ITS ---
Acquisition Time: 2022-03-30 10:08:56 Total Exercise Time: 00:03:21 Test Indications: CHEST PAIN Medications: Protocol: CHARISMA Max HR: 129 BPM 77% of Pred: 166 BPM Max BP: 132/080 mmHG Max Work Load: 5.0 METS Exercise stress test with exercise 3 min 21 sec of Charisma protocol, achieving 74% MPHR, with moderate to severe SOB with request to stop, no chest discomfort, with EKG showing frequent PACs. Treadmill stopped and pt assisted to sitting position. Breathing quickly improved with rest. Testing changed to pharmacological stress test with Lexiscan injection, while sitting and kicking his legs, with recurrent sob, coughing, no chest discomfort, with isolated PAC and rare PVC, with normotensive response to injection, with nondiagnostic EKG for ischemia. In recovery he continued to have sob with expiratory wheezes that were treated with Aminophylline 75mg IVP and caffinated cola to reverse Lexiscan with resolution of symptoms. Nuclear images pending. Test reviewed with Dr Thomas. Referred By: Matthew Luque Overread By: KALA GAMINO
== END ==
LOC: HO.CARD 09:55
PROVIDERS: PCP Family Medicine; Visit Provider Internal Medicine
DX: R07.2 Precordial pain (principal)
CPT/HCPCS: 78452; 93017; A9500; J0280; J2785

== ENCOUNTER 2022-04-08 18:23 | Emergency (ER) | payer MEDICAID, SELFPAY ==
[2022-04-08 18:37] VITALS: PULSE 97; RESP 16; TEMP 36.9; O2SAT 96; BMI 27.3
--- NOTE | 2022-04-08 18:37 | ED.EYEPROB ---
HPI - Eye Problem General Chief complaint: Eye Problems Stated complaint: something in eye? Time Seen by Provider: 04/08/22 21:05 Related Data Home Medications Medication Instructions Recorded Confirmed acetaminophen 650 mg 650 mg PO Q8H PRN Pain 05/28/21 01/13/22 tablet,extended release albuterol sulfate 90 mcg/actuation 2 puff PO Q6H PRN dyspnea 05/28/21 01/13/22 aerosol inhaler (ProAir HFA) amlodipine 5 mg tablet 5 mg PO DAILY 05/28/21 01/13/22 atorvastatin 10 mg tablet 10 mg PO BEDTIME 05/28/21 01/13/22 baclofen 20 mg tablet 20 mg PO TID PRN muscle spasm 05/28/21 01/13/22 calcium carbonate 500 mg-vitamin 1 tab PO BID 05/28/21 01/13/22 D3 5 mcg (200 unit) tablet (Oyster Shell Calcium-Vitamin D3) cholecalciferol (vitamin D3) 50 2,000 unit PO DAILY 05/28/21 01/13/22 mcg (2,000 unit) tablet lidocaine 5 % topical patch 1 patch topical DAILY 05/28/21 01/13/22 (Lidoderm) metformin 500 mg tablet 500 mg PO BID 05/28/21 01/13/22 metoprolol succinate 25 mg 25 mg PO DAILY 05/28/21 01/13/22 tablet,extended release 24 hr mirtazapine 30 mg tablet 15 mg PO BEDTIME 05/28/21 01/13/22 tiotropium bromide 2.5 2 puff PO DAILY 05/28/21 01/13/22 mcg/actuation mist for inhalation (Spiriva Respimat) tramadol 50 mg tablet 50 mg PO Q6H PRN severe pain 05/28/21 01/13/22 clotrimazole 1 % topical cream appl topical 07/26/21 11/24/21 Previous Rx's Medication Instructions Recorded magnesium citrate 296 ml PO DAILY 2 days #592 mL 07/26/21 nystatin 100,000 unit/gram topical 1 appl topical TID #15 grams 07/26/21 cream fluticasone furoate 200 1 inh inhalation DAILY 30 days #60 08/08/21 mcg-vilanterol 25 mcg/dose ea inhalation powder (Breo Ellipta) aspirin 81 mg capsule 81 mg PO DAILY #30 caps 09/16/21 zafirlukast 20 mg tablet 20 mg PO BID 30 days #60 tabs 10/10/21 prednisone 10 mg tablet 10 mg PO BID #60 tabs 11/09/21 budesonide-formoterol HFA 160 2 puff inhalation BID 30 days 11/14/21 mcg-4.5 mcg/actuation aerosol #10.2 grams inhaler (Symbicort) ipratropium 20 mcg-albuterol 100 1 puff inhalation Q6H 30 days #4 11/14/21 mcg/actuation mist for inhalation grams (Combivent Respimat) varenicline 1 mg tablet (Chantix 1 mg PO BID 28 days #56 tabs 02/20/22 Continuing Month Box) bisacodyl 5 mg tablet,delayed 10 mg PO BEDTIME 2 days #4 tabs 03/09/22 release (Dulcolax (bisacodyl)) linaclotide 290 mcg capsule 290 mcg PO QAM #30 caps 03/09/22 (Linzess) pbaclu-vmcuzqhu-glyagrf 1 cap PO QID 30 days #120 caps 03/09/22 24,000-76,000-120,000 unit capsule,delayed rel (Creon) peg 3350-electrolytes 236 240 ml PO Q10M 1 day #4,000 mL 03/09/22 gram-22.74 gram-6.74 gram-5.86 gram solution (Golytely) famotidine 40 mg tablet (Pepcid) 40 mg PO BEDTIME 90 days #90 tabs 03/17/22 omeprazole 40 mg capsule,delayed 40 mg PO DAILY 90 days #90 caps 03/17/22 release varenicline 0.5 mg (11)-1 mg (42) See Rx Instructions .Route 03/21/22 tablets in a dose pack DIRECTED #53 ea oxycodone 5 mg capsule 5 mg PO Q8H PRN pain #12 caps 04/09/22 Allergies Allergy/AdvReac Type Severity Reaction Status Date / Time ibuprofen [From Motrin] Allergy Rash Verified 02/20/22 10:07 [facility] Past Medical History Medical History Anxiety and depression Arthritis Asthma Asthma-COPD overlap syndrome Back pain Chronic abdominal pain COPD (chronic obstructive pulmonary disease) GERD (gastroesophageal reflux disease) History of COVID-19 History of kidney stones HTN (hypertension) Hyperlipidemia Irritable bowel syndrome Leukocytosis Osteoporosis (~2001) Personal history of nicotine dependence Tubular adenoma of colon (~2019) Surgical History History of bilateral hip replacements History of colonoscopy (~2005) History of colonoscopy with polypectomy (~2020) History of hip surgery (~2001) History of hydrocelectomy History of surgery on right wrist (~2014) S/P extracorporeal shock wave therapy (~2013) Shoulder symptoms with history of shoulder arthroplasty Family History Family History Father No problems noted. Mother No problems noted. Son No problems noted. Daughter No problems noted. Social History Social History Alcohol intake: current Alcohol intake frequency: does not drink Patient Tobacco Use Status: Current everyday Tobacco user Tobacco use type: Cigarette Cigarette Packs Per Day: 0.5 Years Smoked: (onset 14yo, 1/2-3/4ppd x 37yrs, 23pyh) Second Hand Smoke Exposure: No Advance Directives: Yes Advance Directives on File: Yes Advance Directives Date on File: 05/30/21 service: No Current occupational status: disabled Physical Exam Vital Signs: Vital Signs: Last Vital Signs Temp 98.4 F 04/08/22 18:37 Pulse 97 04/08/22 18:37 Resp 16 04/08/22 18:37 Pulse Ox 96 04/08/22 18:37 O2 Del Method 04/08/22 18:37 BMI result Body Mass Index 27.3 Course Course Course Narrative: This is an RME: Additional HPI, ROS, PE not included below will be deferred to primary provider. Patient is a 52 old male presents emergency department for evaluation of eye problem. Yesterday believes he got something in the left eye yesterday, states it was very windy and believes something blew into the eye. The eye is very painful, blurred vision, watering. Denies contact lenses. Denies headache, dizziness. Plan: Visual acuity, will require further inspection, fluorescein examination Medications Administered Discontinued Medications Generic Name Dose Route Start Last Admin Trade Name Freq PRN Reason Stop Dose Admin Fluorescein Sodium 1 strip 04/08/22 21:06 04/08/22 21:16 Fluorescein Sodium Strip EYE-BOTH 04/08/22 21:07 Not Given ONCE ONE Tetracaine HCl 1 drop 04/08/22 21:06 04/08/22 21:16 Tetracaine Hcl/Pf 0.5% Oph Maria Teresa 4 Ml Drops EYE-BOTH 04/08/22 21:07 Not Given ONCE ONE Discharge Plan Discharge Clinical Impression: Sensation of foreign body in eye Patient Disposition: Elopement Prescriptions: No Action magnesium citrate Solution 296 ml PO DAILY 2 Days Qty: 592 0RF Rx Instructions: DIspense 2 296mL bottles Breo Ellipta 200-25 mcg/dose blister with device 1 inh inhalation DAILY 30 Days Qty: 60 11RF zafirlukast 20 mg tablet 20 mg PO BID 30 Days Qty: 60 6RF prednisone 10 mg tablet 10 mg PO BID Qty: 60 3RF famotidine [Pepcid] 40 mg tablet 40 mg PO BEDTIME 90 Days Qty: 90 1RF omeprazole 40 mg capsule,delayed release(DR/EC) 40 mg PO DAILY 90 Days Qty: 90 1RF varenicline 0.5 mg (11)- 1 mg (42) tablets,dose pack See Rx Instructions .ROUTE DIRECTED Qty: 53 0RF Rx Instructions: as directed; metformin 500 mg tablet 500 mg PO BID atorvastatin 10 mg tablet 10 mg PO BEDTIME amlodipine 5 mg tablet 5 mg PO DAILY tramadol 50 mg tablet 50 mg PO Q6H PRN (Reason: severe pain) acetaminophen 650 mg tablet extended release 650 mg PO Q8H PRN (Reason: Pain) baclofen 20 mg tablet 20 mg PO TID PRN (Reason: muscle spasm) mirtazapine 30 mg tablet 15 mg PO BEDTIME lidocaine [Lidoderm] 5 % adhesive patch,medicated 1 patch topical DAILY metoprolol succinate 25 mg tablet extended release 24 hr 25 mg PO DAILY albuterol sulfate [ProAir HFA] 90 mcg/actuation HFA aerosol inhaler 2 puff PO Q6H PRN (Reason: dyspnea) calcium carbonate-vitamin D3 [Oyster Shell Calcium-Vit D3] 500 mg-5 mcg (200 unit) tablet 1 tab PO BID cholecalciferol (vitamin D3) 50 mcg (2,000 unit) tablet 2,000 unit PO DAILY Spiriva Respimat 2.5 mcg/actuation mist 2 puff PO DAILY aspirin 81 mg capsule 81 mg PO DAILY Qty: 30 0RF oxycodone 5 mg capsule 5 mg PO Q8H PRN (Reason: pain) Qty: 12 0RF Rx Instructions: Partial Fill upon patient request. clotrimazole 1 % cream topical nystatin 100,000 unit/gram cream 1 appl topical TID Qty: 15 0RF Combivent Respimat 20-100 mcg/actuation mist 1 puff inhalation Q6H 30 Days Qty: 4 11RF budesonide-formoterol [Symbicort] 160-4.5 mcg/actuation HFA aerosol inhaler 2 puff inhalation BID 30 Days Qty: 10.2 11RF varenicline [Chantix Continuing Month Box] 1 mg tablet 1 mg PO BID 28 Days Qty: 56 3RF peg 3350-electrolytes [Golytely] 236-22.74-6.74 -5.86 gram recon soln 240 ml PO Q10M 1 Days Qty: 4000 0RF Rx Instructions: until fecal effluent is clear; do not exceed a total volume of 2,000 mL bisacodyl [Dulcolax (bisacodyl)] 5 mg tablet,delayed release (DR/EC) 10 mg PO BEDTIME 2 Days Qty: 4 0RF Linzess 290 mcg capsule 290 mcg PO QAM Qty: 30 6RF Creon 24,000-76,000 -120,000 unit capsule,delayed release(DR/EC) 1 cap PO QID 30 Days Qty: 120 6RF Rx Instructions: administer with meals and/or snacks Interventions: ED Discharge Assessment Last Done: 04/08/22 21:53 Discharge Date/Time: 04/08/22 21:45
--- NOTE | 2022-04-08 21:50 | PC.NURSE ---
pt was upset about his wait time. pt was the next pt the provider was going to be seen, eye drops pulled not received by provider yet. pt was aware of this information put proceeded to yell at staff, security present and pt left on his own with his spouse.
== END 2022-04-08 21:45 | disposition left against medical advice (07) ==
PROVIDERS: Emergency Provider Emergency Medicine Emergency Medical Services; PCP Family Medicine
DX: H57.10 Ocular pain, unspecified eye (principal); S05.92XA Unspecified injury of left eye and orbit, initial encounter; X58.XXXA Exposure to other specified factors, initial encounter; Y93.9 Activity, unspecified; Y92.9 Unspecified place or not applicable; Y99.9 Unspecified external cause status; H57.12 Ocular pain, left eye; F17.210 Nicotine dependence, cigarettes, uncomplicated
CPT/HCPCS: 99282

== ENCOUNTER 2022-04-09 05:36 | Emergency (ER) | payer MEDICAID, SELFPAY ==
[2022-04-09 06:03] VITALS: BP 137/85; PULSE 75; RESP 14; TEMP 36.7; O2SAT 95; BMI 27.3
--- NOTE | 2022-04-09 06:13 | PC.NURSE ---
Pt aox4. Reports left eye discomfort/painful/itchy. Pain 10/10. Light sensitivity. Left eye appears red and tearful. Pending MD evaluation.
[2022-04-09] MEDS: Tetracaine HCl/PF 0.5% Oph Sol 4 ML DROPS 1 DROP EYE-LEFT (06:43)
[2022-04-09] MEDS: Fluorescein Sodium STRIP 1 STRIP EYE-LEFT (06:44)
--- NOTE | 2022-04-09 06:59 | ED.EYEPROB ---
HPI - Eye Problem General Chief complaint: Eye Problems Stated complaint: eye issues Time Seen by Provider: 04/09/22 06:46 Source: patient Mode of arrival: ambulatory Limitations: no limitations History of Present Illness HPI Narrative: FB sensation left eye since Sunday,unable to sleep chief complaint: eye pain Onset (ago): day(s) (2) Onset description: sudden Duration: constant Location: left eye Eye Symptoms: burning, redness, pain and foreign body sensation Mechanism: other (states wind ) Severity: moderate If Pain, Quality: sharp Associated symptoms: none Related Data Home Medications Medication Instructions Recorded Confirmed acetaminophen 650 mg 650 mg PO Q8H PRN Pain 05/28/21 01/13/22 tablet,extended release albuterol sulfate 90 mcg/actuation 2 puff PO Q6H PRN dyspnea 05/28/21 01/13/22 aerosol inhaler (ProAir HFA) amlodipine 5 mg tablet 5 mg PO DAILY 05/28/21 01/13/22 atorvastatin 10 mg tablet 10 mg PO BEDTIME 05/28/21 01/13/22 baclofen 20 mg tablet 20 mg PO TID PRN muscle spasm 05/28/21 01/13/22 calcium carbonate 500 mg-vitamin 1 tab PO BID 05/28/21 01/13/22 D3 5 mcg (200 unit) tablet (Oyster Shell Calcium-Vitamin D3) cholecalciferol (vitamin D3) 50 2,000 unit PO DAILY 05/28/21 01/13/22 mcg (2,000 unit) tablet lidocaine 5 % topical patch 1 patch topical DAILY 05/28/21 01/13/22 (Lidoderm) metformin 500 mg tablet 500 mg PO BID 05/28/21 01/13/22 metoprolol succinate 25 mg 25 mg PO DAILY 05/28/21 01/13/22 tablet,extended release 24 hr mirtazapine 30 mg tablet 15 mg PO BEDTIME 05/28/21 01/13/22 tiotropium bromide 2.5 2 puff PO DAILY 05/28/21 01/13/22 mcg/actuation mist for inhalation (Spiriva Respimat) tramadol 50 mg tablet 50 mg PO Q6H PRN severe pain 05/28/21 01/13/22 clotrimazole 1 % topical cream appl topical 07/26/21 11/24/21 Previous Rx's Medication Instructions Recorded magnesium citrate 296 ml PO DAILY 2 days #592 mL 07/26/21 nystatin 100,000 unit/gram topical 1 appl topical TID #15 grams 07/26/21 cream fluticasone furoate 200 1 inh inhalation DAILY 30 days #60 08/08/21 mcg-vilanterol 25 mcg/dose ea inhalation powder (Breo Ellipta) aspirin 81 mg capsule 81 mg PO DAILY #30 caps 09/16/21 zafirlukast 20 mg tablet 20 mg PO BID 30 days #60 tabs 10/10/21 prednisone 10 mg tablet 10 mg PO BID #60 tabs 11/09/21 budesonide-formoterol HFA 160 2 puff inhalation BID 30 days 11/14/21 mcg-4.5 mcg/actuation aerosol #10.2 grams inhaler (Symbicort) ipratropium 20 mcg-albuterol 100 1 puff inhalation Q6H 30 days #4 11/14/21 mcg/actuation mist for inhalation grams (Combivent Respimat) varenicline 1 mg tablet (Chantix 1 mg PO BID 28 days #56 tabs 02/20/22 Continuing Month Box) bisacodyl 5 mg tablet,delayed 10 mg PO BEDTIME 2 days #4 tabs 03/09/22 release (Dulcolax (bisacodyl)) linaclotide 290 mcg capsule 290 mcg PO QAM #30 caps 03/09/22 (Linzess) [id number]-[id number]-tprinaj 1 cap PO QID 30 days #120 caps 03/09/22 24,000-76,000-120,000 unit capsule,delayed rel (Creon) peg 3350-electrolytes 236 240 ml PO Q10M 1 day #4,000 mL 03/09/22 gram-22.74 gram-6.74 gram-5.86 gram solution (Golytely) famotidine 40 mg tablet (Pepcid) 40 mg PO BEDTIME 90 days #90 tabs 03/17/22 omeprazole 40 mg capsule,delayed 40 mg PO DAILY 90 days #90 caps 03/17/22 release varenicline 0.5 mg (11)-1 mg (42) See Rx Instructions .Route 03/21/22 tablets in a dose pack DIRECTED #53 ea oxycodone 5 mg capsule 5 mg PO Q8H PRN pain #12 caps 04/09/22 Allergies Allergy/AdvReac Type Severity Reaction Status Date / Time ibuprofen [From Motrin] Allergy Rash Verified 02/20/22 10:07 Review of Systems Constitutional: Constitutional: Reports no additional constitutional complaints Eyes: Eyes: Reports irritation Endocrine: Endocrine: Reports no additional endocrine complaints [facility] Past Medical History Medical History Anxiety and depression Arthritis Asthma Asthma-COPD overlap syndrome Back pain Chronic abdominal pain COPD (chronic obstructive pulmonary disease) GERD (gastroesophageal reflux disease) History of COVID-19 History of kidney stones HTN (hypertension) Hyperlipidemia Irritable bowel syndrome Leukocytosis Osteoporosis (~2001) Personal history of nicotine dependence Tubular adenoma of colon (~2019) Surgical History History of bilateral hip replacements History of colonoscopy (~2005) History of colonoscopy with polypectomy (~2020) History of hip surgery (~2001) History of hydrocelectomy History of surgery on right wrist (~2014) S/P extracorporeal shock wave therapy (~2013) Shoulder symptoms with history of shoulder arthroplasty Family History Family History Father No problems noted. Mother No problems noted. Son No problems noted. Daughter No problems noted. Social History Social History Alcohol intake: current Alcohol intake frequency: does not drink Patient Tobacco Use Status: Current everyday Tobacco user Tobacco use type: Cigarette Cigarette Packs Per Day: 0.5 Years Smoked: (onset 14yo, 1/2-3/4ppd x 37yrs, 23pyh) Second Hand Smoke Exposure: No Advance Directives Date on File: 05/30/21 service: No Current occupational status: disabled Physical Exam Vital Signs: Vital Signs: Last Vital Signs Temp 98.0 F 04/09/22 06:03 Pulse 75 04/09/22 06:03 Resp 14 04/09/22 06:03 BP 137/85 04/09/22 06:03 Pulse Ox 95 04/09/22 06:03 O2 Del Method 04/09/22 06:03 BMI result Body Mass Index 27.3 Const: General: cooperative and alert Nutritional Appearance: average body habitus Orientation/consciousness: patient oriented x3 HEENT: Head: Yes normal to inspection General nose exam: Normal external nose present Teeth and gingiva: dentition normal Eyes: Other: left eye examined with fluorosceine,FB in the cornea in the middle Visual Martinez: normal visual martinez by confrontation Eyelids: Yes eyelids normal Conjunctivae: conjunctival abnormal (left conjunctiva irritation) left and other Corneas: other (FC in the middle of cornea) EOM: EOMs intact bilaterally Resp: Effort & Inspection: normal respiratory effort Cardio: Rate: regular rate Rhythm: regular rhythm GI: Inspection: Yes normal to inspection Neuro: General: patient oriented x3 and gait normal Medications Administered Discontinued Medications Generic Name Dose Route Start Last Admin Trade Name Freq PRN Reason Stop Dose Admin Erythromycin 1 cm 04/09/22 06:58 04/09/22 07:03 Erythromycin Base 0.5% Oph Oin 1 Gm Tube EYE-LEFT 04/09/22 06:59 1 cm ONCE ONE Administration Fluorescein Sodium 1 strip 04/09/22 06:39 04/09/22 06:44 Fluorescein Sodium Strip EYE-LEFT 04/09/22 06:40 1 strip ONCE ONE Administration Tetracaine HCl 1 drop 04/09/22 06:38 04/09/22 06:43 Tetracaine Hcl/Pf 0.5% Oph Maria Teresa 4 Ml Drops EYE-LEFT 04/09/22 06:39 1 drop ONCE ONE Administration Medical Decision Making Medical Decision Making MDM Narrative: PT presented with FB OS ,FB was removed by me Differential Diagnosis Differential Diagnoses: The differential diagnosis associated with the presentation includes conjunctivitis/FB/ Procedures Procedure Narrative Procedure Narrative: FOREIGN BODY REMOVAL CORNEA: after tetracain placed removed foreign body left cornea,there is a small defect in the cornea,ilotycine applied Discharge Plan Discharge Clinical Impression: Foreign body in cornea, left eye, initial encounter Patient Disposition: Home, Self-Care Instructions: Eye Foreign Body (ED) Additional Instructions: follow up with eye Doctor ,applied Ilotycin antibiotic in left eye 3 times Day Prescriptions: New oxycodone 5 mg capsule 5 mg PO Q8H PRN (Reason: pain) Qty: 12 0RF Rx Instructions: Partial Fill upon patient request. No Action magnesium citrate Solution 296 ml PO DAILY 2 Days Qty: 592 0RF Rx Instructions: DIspense 2 296mL bottles Breo Ellipta 200-25 mcg/dose blister with device 1 inh inhalation DAILY 30 Days Qty: 60 11RF zafirlukast 20 mg tablet 20 mg PO BID 30 Days Qty: 60 6RF prednisone 10 mg tablet 10 mg PO BID Qty: 60 3RF famotidine [Pepcid] 40 mg tablet 40 mg PO BEDTIME 90 Days Qty: 90 1RF omeprazole 40 mg capsule,delayed release(DR/EC) 40 mg PO DAILY 90 Days Qty: 90 1RF varenicline 0.5 mg (11)- 1 mg (42) tablets,dose pack See Rx Instructions .ROUTE DIRECTED Qty: 53 0RF Rx Instructions: as directed; metformin 500 mg tablet 500 mg PO BID atorvastatin 10 mg tablet 10 mg PO BEDTIME amlodipine 5 mg tablet 5 mg PO DAILY tramadol 50 mg tablet 50 mg PO Q6H PRN (Reason: severe pain) acetaminophen 650 mg tablet extended release 650 mg PO Q8H PRN (Reason: Pain) baclofen 20 mg tablet 20 mg PO TID PRN (Reason: muscle spasm) mirtazapine 30 mg tablet 15 mg PO BEDTIME lidocaine [Lidoderm] 5 % adhesive patch,medicated 1 patch topical DAILY metoprolol succinate 25 mg tablet extended release 24 hr 25 mg PO DAILY albuterol sulfate [ProAir HFA] 90 mcg/actuation HFA aerosol inhaler 2 puff PO Q6H PRN (Reason: dyspnea) calcium carbonate-vitamin D3 [Oyster Shell Calcium-Vit D3] 500 mg-5 mcg (200 unit) tablet 1 tab PO BID cholecalciferol (vitamin D3) 50 mcg (2,000 unit) tablet 2,000 unit PO DAILY Spiriva Respimat 2.5 mcg/actuation mist 2 puff PO DAILY aspirin 81 mg capsule 81 mg PO DAILY Qty: 30 0RF clotrimazole 1 % cream topical nystatin 100,000 unit/gram cream 1 appl topical TID Qty: 15 0RF Combivent Respimat 20-100 mcg/actuation mist 1 puff inhalation Q6H 30 Days Qty: 4 11RF budesonide-formoterol [Symbicort] 160-4.5 mcg/actuation HFA aerosol inhaler 2 puff inhalation BID 30 Days Qty: 10.2 11RF varenicline [Chantix Continuing Month Box] 1 mg tablet 1 mg PO BID 28 Days Qty: 56 3RF peg 3350-electrolytes [Golytely] 236-22.74-6.74 -5.86 gram recon soln 240 ml PO Q10M 1 Days Qty: 4000 0RF Rx Instructions: until fecal effluent is clear; do not exceed a total volume of 2,000 mL bisacodyl [Dulcolax (bisacodyl)] 5 mg tablet,delayed release (DR/EC) 10 mg PO BEDTIME 2 Days Qty: 4 0RF Linzess 290 mcg capsule 290 mcg PO QAM Qty: 30 6RF Creon 24,000-76,000 -120,000 unit capsule,delayed release(DR/EC) 1 cap PO QID 30 Days Qty: 120 6RF Rx Instructions: administer with meals and/or snacks Referrals: Yemi Potter [Physician] - 1 day Interventions: ED Discharge Assessment Last Done: 04/09/22 07:21 Discharge Date/Time: 04/09/22 07:22
[2022-04-09] MEDS: Erythromycin Base 0.5% Oph Oin 1 GM TUBE 1 CM EYE-LEFT (07:03)
== END 2022-04-09 07:22 | disposition home or self-care (01) ==
PROVIDERS: Emergency Provider Emergency Medicine
DX: T15.02XA Foreign body in cornea, left eye, initial encounter (principal); H57.12 Ocular pain, left eye; X58.XXXA Exposure to other specified factors, initial encounter; Y93.9 Activity, unspecified; Y92.9 Unspecified place or not applicable; Y99.9 Unspecified external cause status; Z79.899 Other long term (current) drug therapy
CPT/HCPCS: 65220; 99283; 99284

== ENCOUNTER 2022-04-09 08:23 | Emergency (ER) | payer MEDICAID, SELFPAY ==
[2022-04-09 08:28] VITALS: BMI 27.3
[2022-04-09] MEDS: Tetracaine HCl/PF 0.5% Oph Sol 4 ML DROPS 1 DROP EYE-LEFT (08:46)
--- NOTE | 2022-04-09 09:15 | ED.EYEPROB ---
HPI - Eye Problem General Chief complaint: Eye Problems Stated complaint: eye issue Time Seen by Provider: 04/09/22 08:49 Source: patient Mode of arrival: ambulatory Limitations: no limitations History of Present Illness HPI Narrative: Seen earlier with Ever OS FB was removed he return because pain MD chief complaint: eye pain (OS) Onset (ago): day(s) (2 pain since Sunday) Onset description: gradual Duration: constant Location: left eye Eye Symptoms: redness, pain and foreign body sensation Severity: moderate If Pain, Quality: sharp Related Data Home Medications Medication Instructions Recorded Confirmed acetaminophen 650 mg 650 mg PO Q8H PRN Pain 05/28/21 01/13/22 tablet,extended release albuterol sulfate 90 mcg/actuation 2 puff PO Q6H PRN dyspnea 05/28/21 01/13/22 aerosol inhaler (ProAir HFA) amlodipine 5 mg tablet 5 mg PO DAILY 05/28/21 01/13/22 atorvastatin 10 mg tablet 10 mg PO BEDTIME 05/28/21 01/13/22 baclofen 20 mg tablet 20 mg PO TID PRN muscle spasm 05/28/21 01/13/22 calcium carbonate 500 mg-vitamin 1 tab PO BID 05/28/21 01/13/22 D3 5 mcg (200 unit) tablet (Oyster Shell Calcium-Vitamin D3) cholecalciferol (vitamin D3) 50 2,000 unit PO DAILY 05/28/21 01/13/22 mcg (2,000 unit) tablet lidocaine 5 % topical patch 1 patch topical DAILY 05/28/21 01/13/22 (Lidoderm) metformin 500 mg tablet 500 mg PO BID 05/28/21 01/13/22 metoprolol succinate 25 mg 25 mg PO DAILY 05/28/21 01/13/22 tablet,extended release 24 hr mirtazapine 30 mg tablet 15 mg PO BEDTIME 05/28/21 01/13/22 tiotropium bromide 2.5 2 puff PO DAILY 05/28/21 01/13/22 mcg/actuation mist for inhalation (Spiriva Respimat) tramadol 50 mg tablet 50 mg PO Q6H PRN severe pain 05/28/21 01/13/22 clotrimazole 1 % topical cream appl topical 07/26/21 11/24/21 Previous Rx's Medication Instructions Recorded magnesium citrate 296 ml PO DAILY 2 days #592 mL 07/26/21 nystatin 100,000 unit/gram topical 1 appl topical TID #15 grams 07/26/21 cream fluticasone furoate 200 1 inh inhalation DAILY 30 days #60 08/08/21 mcg-vilanterol 25 mcg/dose ea inhalation powder (Breo Ellipta) aspirin 81 mg capsule 81 mg PO DAILY #30 caps 09/16/21 zafirlukast 20 mg tablet 20 mg PO BID 30 days #60 tabs 10/10/21 prednisone 10 mg tablet 10 mg PO BID #60 tabs 11/09/21 budesonide-formoterol HFA 160 2 puff inhalation BID 30 days 11/14/21 mcg-4.5 mcg/actuation aerosol #10.2 grams inhaler (Symbicort) ipratropium 20 mcg-albuterol 100 1 puff inhalation Q6H 30 days #4 11/14/21 mcg/actuation mist for inhalation grams (Combivent Respimat) varenicline 1 mg tablet (Chantix 1 mg PO BID 28 days #56 tabs 02/20/22 Continuing Month Box) bisacodyl 5 mg tablet,delayed 10 mg PO BEDTIME 2 days #4 tabs 03/09/22 release (Dulcolax (bisacodyl)) linaclotide 290 mcg capsule 290 mcg PO QAM #30 caps 03/09/22 (Linzess) [id number]-hnczgve 1 cap PO QID 30 days #120 caps 03/09/22 24,000-76,000-120,000 unit capsule,delayed rel (Creon) peg 3350-electrolytes 236 240 ml PO Q10M 1 day #4,000 mL 03/09/22 gram-22.74 gram-6.74 gram-5.86 gram solution (Golytely) famotidine 40 mg tablet (Pepcid) 40 mg PO BEDTIME 90 days #90 tabs 03/17/22 omeprazole 40 mg capsule,delayed 40 mg PO DAILY 90 days #90 caps 03/17/22 release varenicline 0.5 mg (11)-1 mg (42) See Rx Instructions .Route 03/21/22 tablets in a dose pack DIRECTED #53 ea oxycodone 5 mg capsule 5 mg PO Q8H PRN pain #12 caps 04/09/22 Allergies Allergy/AdvReac Type Severity Reaction Status Date / Time ibuprofen [From Motrin] Allergy Rash Verified 02/20/22 10:07 Review of Systems Constitutional: Constitutional: Reports no additional constitutional complaints Eyes: Eyes: Reports as per HPI and Reports other (pain OS) [facility] Past Medical History Medical History Anxiety and depression Arthritis Asthma Asthma-COPD overlap syndrome Back pain Chronic abdominal pain COPD (chronic obstructive pulmonary disease) GERD (gastroesophageal reflux disease) History of COVID-19 History of kidney stones HTN (hypertension) Hyperlipidemia Irritable bowel syndrome Leukocytosis Osteoporosis (~2001) Personal history of nicotine dependence Tubular adenoma of colon (~2019) Surgical History History of bilateral hip replacements History of colonoscopy (~2005) History of colonoscopy with polypectomy (~2020) History of hip surgery (~2001) History of hydrocelectomy History of surgery on right wrist (~2014) S/P extracorporeal shock wave therapy (~2013) Shoulder symptoms with history of shoulder arthroplasty Family History Family History Father No problems noted. Mother No problems noted. Son No problems noted. Daughter No problems noted. Social History Social History Alcohol intake: current Alcohol intake frequency: does not drink Patient Tobacco Use Status: Current everyday Tobacco user Tobacco use type: Cigarette Cigarette Packs Per Day: 0.5 Years Smoked: (onset 14yo, 1/2-3/4ppd x 37yrs, 23pyh) Second Hand Smoke Exposure: No Advance Directives: Yes Advance Directives on File: Yes Advance Directives Date on File: 05/30/21 service: No Current occupational status: disabled Physical Exam Vital Signs: Vital Signs: Last Vital Signs Pulse 93 04/09/22 09:54 Resp 18 04/09/22 09:54 BP 148/99 H 04/09/22 09:54 Pulse Ox 98 04/09/22 09:54 O2 Del Method 04/09/22 09:54 BMI result Body Mass Index 27.3 Const: General: well developed, alert and awake Nutritional Appearance: average body habitus HEENT: Head: Yes normal to inspection General nose exam: Normal external nose present Mouth: Normal oral and palatal mucosa present Eyes: Other: OS he has small corneal ulcer where the FC was located Eyelids: Yes eyelids normal Conjunctivae: conjunctival abnormal (red conjuntiva) left (left) Corneas: other (small ulcer OS middle cornea) Resp: Effort & Inspection: normal respiratory effort Auscultation: clear to auscultation bilaterally Cardio: Jugular venous distension: no JVD Rhythm: regular rhythm GI: Inspection: Yes normal to inspection Skin: General skin exam: no rashes or lesions noted Course Reevaluation(s) Reevaluation #1: I sent a text message to Ophtalmologist Dr Potter he is in [place] but will see pt in AM Time: 10:09 Medications Administered Discontinued Medications Generic Name Dose Route Start Last Admin Trade Name Freq PRN Reason Stop Dose Admin Acetaminophen 975 mg 04/09/22 09:20 04/09/22 09:29 Acetaminophen 325 Mg Tablet PO 04/09/22 09:21 975 mg ONCE ONE Administration Tetracaine HCl 1 drop 04/09/22 08:34 04/09/22 08:46 Tetracaine Hcl/Pf 0.5% Oph Maria Teresa 4 Ml Drops EYE-LEFT 04/09/22 08:35 1 drop ONCE ONE Administration Medical Decision Making Medical Decision Making [facility] Narrative: Pt presented with FB eye that was removed earlie he still has residual pain,likely from the corneal ulceration ,he will call Dari Potter in AM,he has Ilotycine AB and oxycodone for pain.Visual acuity was recorded earlier and was normal Discharge Plan Discharge Clinical Impression: Foreign body in eye, Corneal abrasion Patient Disposition: Home, Self-Care Instructions: Eye Foreign Body (ED) Additional Instructions: take oxycodon for pain,see eye doctor in AM,place Ilotycin antibiotic as we told you earlier.Also we called oxycodon for pain Prescriptions: No Action magnesium citrate Solution 296 ml PO DAILY 2 Days Qty: 592 0RF Rx Instructions: DIspense 2 296mL bottles Breo Ellipta 200-25 mcg/dose blister with device 1 inh inhalation DAILY 30 Days Qty: 60 11RF zafirlukast 20 mg tablet 20 mg PO BID 30 Days Qty: 60 6RF prednisone 10 mg tablet 10 mg PO BID Qty: 60 3RF famotidine [Pepcid] 40 mg tablet 40 mg PO BEDTIME 90 Days Qty: 90 1RF omeprazole 40 mg capsule,delayed release(DR/EC) 40 mg PO DAILY 90 Days Qty: 90 1RF varenicline 0.5 mg (11)- 1 mg (42) tablets,dose pack See Rx Instructions .ROUTE DIRECTED Qty: 53 0RF Rx Instructions: as directed; metformin 500 mg tablet 500 mg PO BID atorvastatin 10 mg tablet 10 mg PO BEDTIME amlodipine 5 mg tablet 5 mg PO DAILY tramadol 50 mg tablet 50 mg PO Q6H PRN (Reason: severe pain) acetaminophen 650 mg tablet extended release 650 mg PO Q8H PRN (Reason: Pain) baclofen 20 mg tablet 20 mg PO TID PRN (Reason: muscle spasm) mirtazapine 30 mg tablet 15 mg PO BEDTIME lidocaine [Lidoderm] 5 % adhesive patch,medicated 1 patch topical DAILY metoprolol succinate 25 mg tablet extended release 24 hr 25 mg PO DAILY albuterol sulfate [ProAir HFA] 90 mcg/actuation HFA aerosol inhaler 2 puff PO Q6H PRN (Reason: dyspnea) calcium carbonate-vitamin D3 [Oyster Shell Calcium-Vit D3] 500 mg-5 mcg (200 unit) tablet 1 tab PO BID cholecalciferol (vitamin D3) 50 mcg (2,000 unit) tablet 2,000 unit PO DAILY Spiriva Respimat 2.5 mcg/actuation mist 2 puff PO DAILY aspirin 81 mg capsule 81 mg PO DAILY Qty: 30 0RF oxycodone 5 mg capsule 5 mg PO Q8H PRN (Reason: pain) Qty: 12 0RF Rx Instructions: Partial Fill upon patient request. clotrimazole 1 % cream topical nystatin 100,000 unit/gram cream 1 appl topical TID Qty: 15 0RF Combivent Respimat 20-100 mcg/actuation mist 1 puff inhalation Q6H 30 Days Qty: 4 11RF budesonide-formoterol [Symbicort] 160-4.5 mcg/actuation HFA aerosol inhaler 2 puff inhalation BID 30 Days Qty: 10.2 11RF varenicline [Chantix Continuing Month Box] 1 mg tablet 1 mg PO BID 28 Days Qty: 56 3RF peg 3350-electrolytes [Golytely] 236-22.74-6.74 -5.86 gram recon soln 240 ml PO Q10M 1 Days Qty: 4000 0RF Rx Instructions: until fecal effluent is clear; do not exceed a total volume of 2,000 mL bisacodyl [Dulcolax (bisacodyl)] 5 mg tablet,delayed release (DR/EC) 10 mg PO BEDTIME 2 Days Qty: 4 0RF Linzess 290 mcg capsule 290 mcg PO QAM Qty: 30 6RF Creon 24,000-76,000 -120,000 unit capsule,delayed release(DR/EC) 1 cap PO QID 30 Days Qty: 120 6RF Rx Instructions: administer with meals and/or snacks Referrals: Yemi Potter [Physician] - 1 day Interventions: ED Discharge Assessment Last Done: 04/09/22 10:32 Discharge Date/Time: 04/09/22 10:32
[2022-04-09] MEDS: Acetaminophen 325 MG TABLET 975 MG PO (09:29)
[2022-04-09 09:54] VITALS: BP 148/99; PULSE 93; RESP 18; O2SAT 98
== END 2022-04-09 10:32 | disposition home or self-care (01) ==
PROVIDERS: Emergency Provider Emergency Medicine; PCP Family Medicine
DX: T15.02XA Foreign body in cornea, left eye, initial encounter (principal); X58.XXXA Exposure to other specified factors, initial encounter; Y93.9 Activity, unspecified; Y92.9 Unspecified place or not applicable; Y99.9 Unspecified external cause status; F17.210 Nicotine dependence, cigarettes, uncomplicated; Z71.6 Tobacco abuse counseling; Z79.899 Other long term (current) drug therapy
CPT/HCPCS: 65220; 99284

== ENCOUNTER → 2022-04-28 12:46 | Outpatient (REF) | payer MEDICAID, SELFPAY ==
--- NOTE | 2022-04-28 12:49 | CA_ITS ---
Transthoracic Echocardiogram Patient (Last, First, Middle): Aldo Breaux G Gender: Male Date of : 1970 Age: 52 Procedure Date: 04/28/2022 Procedure Type: Transthoracic Echocardiogram Location: OP Height: 172.72 cm Weight: 81.65 kg BSA: 1.95 m2 Heart Rate: bpm BP: 128 / 60 mmHg Mechanical Artist: Referring MD: Matthew Luque MD [employer]ograph Press Operator: Joe Rao MD Symptoms: I25.10 - Atherosclerotic heart disease of [place] coronary artery without... Study Quality: Good ECG Rhythm: Sinus Conclusions: - 1. Normal LV systolic function with impaired relaxation filling pattern 2. Mitral annular calcification with normal cardiac valves with Doppler 3. Normal RV systolic pressure 4. No gross pericardial effusion Findings Left Ventricle Normal left ventricular size, thickness, and systolic function. The visually estimated ejection fraction is between 60-65%. Spectral Doppler is indicative of an impaired relaxation filling pattern. E/E prime ratio is between 8 and 15 consistent with indeterminate filling pressures. Right Ventricle Normal right ventricular cavity size and systolic function. Atria Both atria are normal in size. Interatrial shunt cannot be excluded. Aortic Valve There is mild calcification of the aortic valve. There is no aortic valve stenosis. There is no aortic valve regurgitation. Mitral Valve There is mild anterior and posterior mitral leaflet thickening. There is moderate mitral annular calcification. There is trace mitral valve regurgitation. There is no mitral valve stenosis. Pulmonic Valve The pulmonic valve was not well visualized. Tricuspid Valve Likely normal tricuspid valve structure and function. There is trace tricuspid valve regurgitation. The right ventricular systolic pressure is normal. The right ventricular systolic pressure is 16 mmHg. Normal right atrial pressure. There is no evidence of pulmonary hypertension. Great Vessels All visible segments of the aorta are normal in size. The pulmonary artery was not well visualized. Venous The inferior vena cava is normal in size and collapses greater than 50% with inspiration. Pericardium/Pleural There is no evidence of pericardial effusion. Prior Study Comparison No prior study available for comparison. Measurements 2D Linear Measurements RVIDd: 1.71 RVIDd Index: 0.88 IVSd: 1.09 0.6-0.9/0.6-1.0 cm LVIDd: 4.73 3.9-5.3/4.2-5.9 cm LVIDd Index: 2.43 2.4-3.2/2.2-3.1 cm/m2 LVIDs: 2.67 2.0-3.6 cm LVPWd: 1.10 0.7-1.1 cm Ao Root: 3.30 2.1-3.5 cm LA Diam: 3.60 2.7-3.8/3.0-4.0 cm LAIDs Index: 1.85 1.5-2.3 cm/m2 LV Mass: 234.57 67-162/88-224 g LV Mass Index: 120.29 43-95/49-115 g/m2 LVOT Diam: 2.20 3.0+(-)1.3 cm 2D Systolic Function EF 4C: 60.20 >55% EF 2C: 63.00 >55% EF BiP: 61.30 >55% Mitral Valve MV Pk E: 0.86 MV PK A: 1.01 MV Decel Time: 209.00 E/A: 0.80 E'Lateral: 6.53 E'Medial: 8.50 E/E' Med: 10.10 E/E' Lat: 13.10 PHT: 61.00 MVA PHT: 3.61 Decel [place]: 4.10 Aortic Valve AoV Pk Chris: 1.35 AoV Mn Chris: 0.82 AoV VTI: 0.25 AoV Pk Grad: 7.00 Aov Mn Grad: 3.00 RANDALL Cont.VTI: 3.32 LVOT LVOT Pk Chris: 1.01 LVOT Mn Chris: 0.66 LVOT VTI: 0.22 LVOT Pk Grad: 4.00 LVOT Mn Grad: 2.00 LVOT Diam: 2.20 LVOT Area: 3.80 Diastolic Function MV Pk E: 0.86 MV Pk A: 1.01 E/A: 0.80 E'Medial: 8.50 E/E' Med: 10.10 E' Laterial: 6.53 E/E' Lat: 13.10 Right Ventricle TAPSE (mm): 25.00 TVS' Chris: 12.00 Tricuspid Valve TR Pk Chris: 1.81 TR Pk Grad: 13.00 RA Press: 3.00 RVSP: 16.00 Great Vessels Aorta Ao Root-2D: 3.30 2.0-3.7 cm Ao Asc: 3.60 2.1-3.4 cm Pulmonary Valve PV Pk Chris: 0.96 Peak PV Grad: 4.00 Updated in Other Vendor System with Status of Final Joe Rao MD electronically signed on 04/29/2022 2:23:56 PM with status of Final
== END ==
LOC: HO.CARD 12:46
PROVIDERS: PCP Family Medicine; Visit Provider Internal Medicine
DX: R07.2 Precordial pain (principal); I25.10 Atherosclerotic heart disease of native coronary artery without angina pectoris
CPT/HCPCS: 93306

== ENCOUNTER 2022-05-05 16:51 | Outpatient (REF) | payer MEDICAID, SELFPAY ==
--- NOTE | ~2022-05-05 | XR_ITS ---
EXAMINATION: XR RIBS, LEFT CLINICAL INFORMATION: Rib pain COMPARISON: Previous chest x-ray November [address] February 2022 TECHNIQUE: 3 views of the left ribs and one view of were obtained. FINDINGS: The cardiac and mediastinal contours are stable. There is scarring or subsegmental atelectasis at the left lung base. The lungs are otherwise clear. There are old left fifth and sixth rib fractures. No acute rib fracture is seen. There is no pleural effusion or pneumothorax. There are degenerative changes of the spine and left shoulder. XR/XR ribs LT min 3V w CXR1V IMPRESSION: Subsegmental atelectasis at the left lung base. Old left rib fractures.
== END 2022-05-05 16:52 | disposition home or self-care (01) ==
LOC: HO.XRAY 16:51
PROVIDERS: Visit Provider Family Medicine
DX: R07.81 Pleurodynia (principal)
CPT/HCPCS: 71101

== ENCOUNTER 2022-05-27 17:28 | Emergency (ER) | payer MEDICAID, SELFPAY ==
--- NOTE | 2022-05-27 | ECG_ITS ---
Test Reason : CHEST PAIN Blood Pressure : / mmHG Vent. Rate : 087 BPM Atrial Rate : 087 BPM P-R Int : 136 ms QRS Dur : 068 ms QT Int : 342 ms P-R-T Axes : 055 036 070 degrees QTc Int : 411 ms Normal sinus rhythm Nonspecific T wave abnormality Borderline ECG When compared with ECG of 16-SEP-2021 01:46, No significant change was found Referred By: Generic ED Physician Electronically Signed By:LORI VERDIN
--- NOTE | ~2022-05-27 | XR_ITS ---
EXAMINATION: XR CHEST CLINICAL INFORMATION: Chest pain COMPARISON: Chest x-ray 05/05/2022. TECHNIQUE: 2 views of the chest were obtained. FINDINGS: The lungs are hyperinflated but clear of acute process. Heart size and pulmonary vascularity is normal. No gross bony abnormality seen. XR/XR chest 2V IMPRESSION: Hyperinflated lungs without acute process.
[2022-05-27 17:43] VITALS: BP 142/85; PULSE 92; RESP 22; TEMP 36.6; O2SAT 96; BMI 27.0
[2022-05-27 18:00] VITALS: BP 130/84; PULSE 93; RESP 16; TEMP 36.9; O2SAT 96
[2022-05-27 18:01] LABS: MANUAL DIFF FLAG NO
[2022-05-27 18:03] LABS: Basophils Absolute Auto 0.1 X10*3/uL (0.0-0.2); Basophils Percent Auto 0.3 % (0-2); Eosinophils Percent Auto 0.2 % (0-4); Hematocrit 42.7 % (42.0-52.0); Hemoglobin 14.3 g/dl (14.0-18.0); Imm Gran Abs Auto 0.16 X10*3/uL (0.00-0.03); Imm Gran Pct Auto 0.8 % (0.0-0.4); Lymphocytes Absolute Auto 3.7 X10*3/uL (1.2-4.9); Lymphocytes Percent Auto 18.1 % (20-40); Mean Corpuscular HGB Conc 33.5 g/dl (31.0-36.0); Mean Corpuscular Hemoglobin 30.2 pg (27.0-33.0); Mean Corpuscular Volume 90.1 fL (80.0-98.0); Mean Platelet Volume 8.4 fL (9.4-12.4); Monocytes Absolute Auto 1.5 X10*3/uL (0.1-1.2); Monocytes Percent Auto 7.1 % (2-11); Neutrophils Percent Auto 73.5 % (45-73); Platelet Count 334 X10*3/uL (160-400); Red Blood Count 4.74 X10*6/uL (4.60-5.80); Red Cell Distribution Width 13.3 % (11.0-16.0); White Blood Count 20.5 X10*3/uL (4.8-10.8)
--- NOTE | 2022-05-27 18:05 | ED_ITS ---
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 He denies any fevers, chills. He reports a history of asthma and states that he has been using his inhalers without any improvement. Denies any sick contacts. Patient reports that his chest pain is described as a tightness it is worse with coughing or stretching. His chest pain is unrelated to exertion. Currently he states this has worsened his back, 8/10 and stabbing denies any leg swelling or recent travel <Nadir Espinal - Last Filed: 05/27/22 22:44> Related Data Home Medications: Home Medications Medication Instructions Recorded Confirmed acetaminophen 650 mg 650 mg PO Q8H PRN Pain 05/28/21 01/13/22 tablet,extended release amlodipine 5 mg tablet 5 mg PO DAILY 05/28/21 01/13/22 atorvastatin 10 mg tablet 10 mg PO BEDTIME 05/28/21 01/13/22 baclofen 20 mg tablet 20 mg PO TID PRN muscle spasm 05/28/21 01/13/22 calcium carbonate 500 mg-vitamin 1 tab PO BID 05/28/21 01/13/22 D3 5 mcg (200 unit) tablet (Oyster Shell Calcium-Vitamin D3) cholecalciferol (vitamin D3) 50 2,000 unit PO DAILY 05/28/21 01/13/22 mcg (2,000 unit) tablet lidocaine 5 % topical patch 1 patch topical DAILY 05/28/21 01/13/22 (Lidoderm) metformin 500 mg tablet 500 mg PO BID 05/28/21 01/13/22 metoprolol succinate 25 mg 25 mg PO DAILY 05/28/21 01/13/22 tablet,extended release 24 hr mirtazapine 30 mg tablet 15 mg PO BEDTIME 05/28/21 01/13/22 tiotropium bromide 2.5 2 puff PO DAILY 05/28/21 01/13/22 mcg/actuation mist for inhalation (Spiriva Respimat) tramadol 50 mg tablet 50 mg PO Q6H PRN severe pain 05/28/21 01/13/22 clotrimazole 1 % topical cream appl topical 07/26/21 11/24/21 Previous Rx's Medication Instructions Recorded magnesium citrate 296 ml PO DAILY 2 days #592 mL 07/26/21 nystatin 100,000 unit/gram topical 1 appl topical TID #15 grams 07/26/21 cream fluticasone furoate 200 1 inh inhalation DAILY 30 days #60 08/08/21 mcg-vilanterol 25 mcg/dose ea inhalation powder (Breo Ellipta) aspirin 81 mg capsule 81 mg PO DAILY #30 caps 09/16/21 prednisone 10 mg tablet 10 mg PO BID #60 tabs 11/09/21 budesonide-formoterol HFA 160 2 puff inhalation BID 30 days 11/14/21 mcg-4.5 mcg/actuation aerosol #10.2 grams inhaler (Symbicort) ipratropium 20 mcg-albuterol 100 1 puff inhalation Q6H 30 days #4 11/14/21 mcg/actuation mist for inhalation grams (Combivent Respimat) varenicline 1 mg tablet (Chantix 1 mg PO BID 28 days #56 tabs 02/20/22 Continuing Month Box) bisacodyl 5 mg tablet,delayed 10 mg PO BEDTIME 2 days #4 tabs 03/09/22 release (Dulcolax (bisacodyl)) zeislk-fufunuzz-eflddyh 1 cap PO QID 30 days #120 caps 03/09/22 24,000-76,000-120,000 unit capsule,delayed rel (Creon) peg 3350-electrolytes 236 240 ml PO Q10M 1 day #4,000 mL 03/09/22 gram-22.74 gram-6.74 gram-5.86 gram solution (Golytely) famotidine 40 mg tablet (Pepcid) 40 mg PO BEDTIME 90 days #90 tabs 03/17/22 omeprazole 40 mg capsule,delayed 40 mg PO DAILY 90 days #90 caps 03/17/22 release varenicline 0.5 mg (11)-1 mg (42) See Rx Instructions .Route 03/21/22 tablets in a dose pack DIRECTED #53 ea oxycodone 5 mg capsule 5 mg PO Q8H PRN pain #12 caps 04/09/22 linaclotide 290 mcg capsule 290 mcg PO QAM #30 caps 04/18/22 (Linzess) albuterol sulfate 90 mcg/actuation 2 puff PO Q6H PRN for dyspnea #18 04/28/22 aerosol inhaler (Ventolin HFA) ea zafirlukast 20 mg tablet 20 mg PO BID 90 days #180 tabs 05/02/22 benzonatate 200 mg capsule 200 mg PO TID PRN cough #10 caps 05/27/22 cyclobenzaprine 10 mg tablet 10 mg PO TID PRN muscle spasm #10 05/27/22 tabs prednisone 20 mg tablet 40 mg PO DAILY #10 tabs 05/27/22 <KAITY Mcgovern - Last Filed: 05/27/22 18:06> Allergies/Adverse Reactions: Allergies Allergy/AdvReac Type Severity Reaction Status Date / Time ibuprofen [From Motrin] Allergy Rash Verified 05/27/22 17:43 <KAITY Mcgovern - Last Filed: 05/27/22 18:06> Review of Systems Constitutional: Constitutional: Reports as per HPI, Denies chills, Denies fatigue, Denies fever(s) and Denies headache(s) <Nadir Espinal - Last Filed : 05/27/22 22:44> ENT: Denies headache(s) and Denies sore throat <Nadir Espinal - Last Filed: 05/27/22 22:44> Cardiovascular: Cardiovascular: Reports chest pain and Reports dyspnea <Nadir Espinal - Last Filed: 05/27/22 22:44> Respiratory: Respiratory: Denies cough, Reports pain with cough and Reports dyspnea <Nadir Espinal - Last Filed: 05/27/22 22:44> Gastrointestinal: Gastrointestinal: Denies abdominal pain, Denies constipation and Denies vomiting <Nadir Espinal - Last Filed: 05/27/22 22:44> Genitourinary: Genitourinary: Denies difficulty urinating and Denies dysuria <Nadir Espinal - Last Filed: 05/27/22 22:44> Neurologic: Denies headache(s) and Denies focal weakness <Nadir Espinal - Last Filed: 05/27/22 22:44> Endocrine: Endocrine: Denies fatigue <Nadir Espinal - Last Filed: 05/27/22 22:44> PMF Past Medical History Medical History: Medical History Anxiety and depression Arthritis Asthma Asthma-COPD overlap syndrome Back pain Chronic abdominal pain COPD (chronic obstructive pulmonary disease) GERD (gastroesophageal reflux disease) History of COVID-19 History of kidney stones HTN (hypertension) Hyperlipidemia Irritable bowel syndrome Leukocytosis Osteoporosis (~2001) Personal history of nicotine dependence Tubular adenoma of colon (~2019) <KAITY Mcgovern - Last Filed: 05/27/22 18:06> Surgical History: Surgical History History of bilateral hip replacements History of colonoscopy (~2005) History of colonoscopy with polypectomy (~2020) History of hip surgery (~2001) History of hydrocelectomy History of surgery on right wrist (~2014) S/P extracorporeal shock wave therapy (~2013) Shoulder symptoms with history of shoulder arthroplasty <KAITY Mcgovern - Last Filed: 05/27/22 18:06> Family History Family History: Family History Father No problems noted. Mother No problems noted. Son No problems noted. Daughter No problems noted. <KAITY Mcgovern - Last Filed: 05/27/22 18:06> Social History Social History: Social History Alcohol intake: unknown Patient Tobacco Use Status: Current everyday Tobacco user Tobacco use type: Cigarette Cigarette Packs Per Day: 0.5 Years Smoked: (onset 14yo, 1/2-3/4ppd x 37yrs, 23pyh) Smoked in Last 30 Days: Yes Second Hand Smoke Exposure: No Use of substances other than those prescribed or required for medical reasons: Unknown Advance Directives: Yes Advance Directives on File: Yes Advance Directives Date on File: 05/30/21 service: No Current occupational status: disabled <KAITY Mcgovern - Last Filed: 05/27/22 18:06> Physical Exam Vital Signs: Vital Signs: Last Vital Signs Temp 98.5 F 05/27/22 18:00 Pulse 93 05/27/22 18:00 Resp 16 05/27/22 18:00 BP 130/84 05/27/22 18:00 Pulse Ox 96 05/27/22 18:00 O2 Del Method 05/27/22 18:00 BMI result Body Mass Index 27.0 <KAITY Mcgovern - Last Filed: 05/27/22 18:06> Vital Signs: Last Vital Signs Temp 98.5 F 05/27/22 18:00 Pulse 93 05/27/22 18:00 Resp 16 05/27/22 18:00 BP 130/84 05/27/22 18:00 Pulse Ox 96 05/27/22 18:00 O2 Del Method 05/27/22 18:00 BMI result Body Mass Index 27.0 <Nadir Espinal - Last Filed: 05/27/22 22:44> Const: General: healthy appearing, comfortable, no acute distress, alert and awake <Nadir Espinal - Last Filed: 05/27/22 22:44> Nutritional Appearance: well nourished <Nadir Espinal - Last Filed: 05/27/22 22:44> Orientation/consciousness: patient oriented x3 <Nadir Espinal - Last Filed: 05/27/22 22:44> HEENT: Head: Yes normocephalic and Yes atraumatic <Nadir Espinal - Last Filed: 05/27/22 22:44> Throat: Yes posterior oropharynx normal <Nadir Espinal - Last Filed: 05/27/22 22:44> Eyes: Eyelids: Yes eyelids normal < Last Filed: 05/27/22 22:44> Conjunctivae: conjunctivae normal < Last Filed: 05/27/22 22:44> Sclerae: sclerae normal < Last Filed: 05/27/22 22:44> Corneas: corneas normal < Last Filed: 05/27/22 22:44> Pupils: Equal, round and reactive pupils present < Last Filed: 05/27/22 22:44> EOM: EOMs intact bilaterally < Last Filed: 05/27/22 22:44> Neck: Neck: Yes full ROM < Last Filed: 05/27/22 22:44> Resp: Other: diminished breath sounds bilaterally with expiratory wheeze < Last Filed: 05/27/22 22:44> Effort & Inspection: abnormal respiratory effort, audible wheezes, Actively coughing, labored and nasal flaring < Last Filed: 05/27/22 22:44> Cardio: Rate: regular rate < Last Filed: 05/27/22 22:44> Rhythm: regular rhythm < Last Filed: 05/27/22 22:44> Back/Spine/Pelvis: Thoracic/Lumbar Spine: paraspinal muscle tenderness ( thoracic region bilaterally) < Last Filed: 05/27/22 22:44> Skin: General skin exam: no rashes or lesions noted and elasticity normal < Last Filed: 05/27/22 22:44> Neuro: General: patient oriented x3 < Last Filed: 05/27/22 22:44> Cranial nerves: Yes CN's II-XII intact bilaterally, Yes Equal, round and reactive pupils present and Yes Bilaterally intact EOM present < Last Filed: 05/27/22 22:44> Cognition (Neuro): normal cognition < Last Filed: 05/27/22 22:44> Course Course Course Narrative: RME performed by Claire roth PA-C. Patient is a 52 year old male presenting to the emergency department with chest pain. Labs, EKG, chest XR ordered. Patient placed back in the waiting room pending room availability and results. <KAITY Mcgovern - Last Filed: 05/27/22 18:06> Reevaluation(s) Reevaluation #1: patient reports feeling much better, his breathing has improved. He does continue to complain of chest pain as well he is coughing. He is very adamant that he is trying to cough up phlegm but nothing is coming out an acute given the back pain and chest pain when I cough. Patient is requesting something stronger for his pain. He was previously given fentanyl without improvement discomfort. I discussed trying Toradol with him. He does have an adverse reaction to ibuprofen last night was a rash. He states he has had Toradol before without any issues <Nadir Espinal - Last Filed: 05/27/22 22:44> Time: 22:17 <Nadir Espinal - Last Filed: 05/27/22 22:44> Reevaluation #2: Patient demanding discharge after receiving his Toradol, his vital signs are stable, he appears well, he is not in respiratory distress. He will be discharged <Nadir Espinal - Last Filed: 05/27/22 22:44> Time: 22:40 <Nadir Espinal - Last Filed: 05/27/22 22:44> Medications Administered Discontinued Medications Generic Name Dose Route Start Last Admin Trade Name Santanaq PRN Reason Stop Dose Admin Albuterol Sulfate 10 mg/ 0 mg 05/27/22 20:51 05/27/22 21:02 Ipratropium Willard 0.5 mg INHALE 05/27/22 20:52 1 each ONCE ONE Administration Fentanyl 50 mcg 05/27/22 20:51 05/27/22 21:00 Fentanyl Citrate/Pf 100 Mcg/2 Ml Vial IVPUSH 05/27/22 20:52 50 mcg ONCE ONE Administration Protocol Magnesium Sulfate/Dextrose 1 gm in 100 mls @ 100 mls/hr 05/27/22 20:51 05/27/22 22:29 Magnesium Sulfate/D5w IV 05/27/22 21:50 Infused ONCE ONE Infusion Ketorolac Tromethamine 15 mg 05/27/22 22:15 05/27/22 22:28 Ketorolac Tromethamine 15 Mg/Ml Vial IVPUSH 05/27/22 22:16 15 mg ONCE ONE Administration Methylprednisolone Sodium Succinate 125 mg 05/27/22 20:51 05/27/22 21:01 Methylprednisolone Sod Succ 125 Mg/2 Ml Vial IVPUSH 05/27/22 20:52 125 mg ONCE ONE Administration <KAITY Mcgovern - Last Filed: 05/27/22 18:06> Medications Administered Discontinued Medications Generic Name Dose Route Start Last Admin Trade Name Loc PRN Reason Stop Dose Admin Albuterol Sulfate 10 mg/ 0 mg 05/27/22 20:51 05/27/22 21:02 Ipratropium Willard 0.5 mg INHALE 05/27/22 20:52 1 each ONCE ONE Administration Fentanyl 50 mcg 05/27/22 20:51 05/27/22 21:00 Fentanyl Citrate/Pf 100 Mcg/2 Ml Vial IVPUSH 05/27/22 20:52 50 mcg ONCE ONE Administration Protocol Magnesium Sulfate/Dextrose 1 gm in 100 mls @ 100 mls/hr 05/27/22 20:51 05/27/22 22:29 Magnesium Sulfate/D5w IV 05/27/22 21:50 Infused ONCE ONE Infusion Ketorolac Tromethamine 15 mg 05/27/22 22:15 05/27/22 22:28 Ketorolac Tromethamine 15 Mg/Ml Vial IVPUSH 05/27/22 22:16 15 mg ONCE ONE Administration Methylprednisolone Sodium Succinate 125 mg 05/27/22 20:51 05/27/22 21:01 Methylprednisolone Sod Succ 125 Mg/2 Ml Vial IVPUSH 05/27/22 20:52 125 mg ONCE ONE Administration <Nadir Espinal - Last Filed: 05/27/22 22:44> Medical Decision Making Medical Decision Making MDM Narrative: patient arrives complaining of chest pain and back pain that started after coughing having increased shortness of breath. Four days ago. His vitals are stable on arrival though he does appear to have increased respiratory drive. On exam he has diminished breath sounds with expiratory wheeze, consistent with asthma exacerbation. will treat with Solu-Medrol, magnesium, low-dose fentanyl, And a DuoNeb. patient will watch closely and re-evaluate <Nadir Kylie - Last Filed: 05/27/22 22:44> Differential Diagnosis acute asthma exacerbation upper respiratory infection Bronchitis Pneumonia Viral syndrome <Nadir Kylie - Last Filed: 05/27/22 22:44> Lab Data Result Diagrams: 05/27/22 17:57 05/27/22 17:57 <KAITY Mcgovern - Last Filed: 05/27/22 18:06> Labs: Lab Results 05/27/22 05/27/22 05/27/22 Range/Units 17:57 17:57 17:57 WBC 20.5 H (4.8-10.8) X10*3/uL RBC 4.74 (4.60-5.80) X10*6/uL Hgb 14.3 (14.0-18.0) g/dl Hct 42.7 (42.0-52.0) % MCV 90.1 (80.0-98.0) fL MCH 30.2 (27.0-33.0) pg MCHC 33.5 (31.0-36.0) g/dl RDW 13.3 (11.0-16.0) % Plt Count 334 (160-400) X10*3/uL MPV 8.4 L (9.4-12.4) fL Immature Gran % (Auto) 0.8 H (0.0-0.4) % Neut % (Auto) 73.5 H (45-73) % Lymph % (Auto) 18.1 L (20-40) % [place] % (Auto) 7.1 (2-11) % Eos % (Auto) 0.2 (0-4) % Baso % (Auto) 0.3 (0-2) % Lymph # (Auto) 3.7 (1.2-4.9) X10*3/uL [place] # (Auto) 1.5 H (0.1-1.2) X10*3/uL Eos # (Auto) 0.0 (0.0-0.4) X10*3/uL Baso # (Auto) 0.1 (0.0-0.2) X10*3/uL Abs Immat Gran (auto) 0.16 H (0.00-0.03) X10*3/uL Absolute Neuts (auto) 15.0 H (2.0-8.3) x10*3/uL Absolute Nucleated RBC 0.000 (0.0-0.012) X10*3/uL Nucleated RBC % (auto) 0.0 (0.0-0.2) /100WBC APTT (26.0-36.4) SEC Sodium 139 (135-145) mmol/L Potassium 4.0 (3.3-5.1) mmol/L Chloride 104 (96-108) mmol/L Carbon Dioxide 23 (22-29) mmol/L Anion Gap 16 (12-20) BUN 8 L (9-16) mg/dL Creatinine 0.72 (0.5-1.4) mg/dL Estim Creat Clear Calc 113.4 Estimated GFR > 60 Random Glucose 147 H (60-115) mg/dL Calcium 9.2 (8.4-10.2) mg/dL Magnesium 2.0 (1.6-2.6) mg/dL Total Bilirubin 0.4 (0.0-1.0) mg/dL AST 11 (5-37) U/L ALT 19 (0-40) U/L Alkaline Phosphatase 85 (39-117) U/L Troponin I High Sens 4.3 (<3.5-35.0) ng/L B-Natriuretic Peptide (<100) pg/mL Total Protein 6.7 (6.5-8.0) g/dL Albumin 4.0 (3.5-5.0) g/dL COVID-19 ([facility]) (Negative) COVID-19 Clin Com 05/27/22 05/27/22 05/27/22 Range/Units 18:18 18:27 18:27 WBC (4.8-10.8) X10*3/uL RBC (4.60-5.80) X10*6/uL Hgb (14.0-18.0) g/dl Hct (42.0-52.0) % MCV (80.0-98.0) fL MCH (27.0-33.0) pg MCHC (31.0-36.0) g/dl RDW (11.0-16.0) % Plt Count (160-400) X10*3/uL MPV (9.4-12.4) fL Immature Gran % (Auto) (0.0-0.4) % Neut % (Auto) (45-73) % Lymph % (Auto) (20-40) % [place] % (Auto) (2-11) % Eos % (Auto) (0-4) % Baso % (Auto) (0-2) % Lymph # (Auto) (1.2-4.9) X10*3/uL [place] # (Auto) (0.1-1.2) X10*3/uL Eos # (Auto) (0.0-0.4) X10*3/uL Baso # (Auto) (0.0-0.2) X10*3/uL Abs Immat Gran (auto) (0.00-0.03) X10*3/uL Absolute Neuts (auto) (2.0-8.3) x10*3/uL Absolute Nucleated RBC (0.0-0.012) X10*3/uL Nucleated RBC % (auto) (0.0-0.2) /100WBC APTT 26.0 (26.0-36.4) SEC Sodium (135-145) mmol/L Potassium (3.3-5.1) mmol/L Chloride (96-108) mmol/L Carbon Dioxide (22-29) mmol/L Anion Gap (12-20) BUN (9-16) mg/dL Creatinine (0.5-1.4) mg/dL Estim Creat Clear Calc Estimated GFR Random Glucose (60-115) mg/dL Calcium (8.4-10.2) mg/dL Magnesium (1.6-2.6) mg/dL Total Bilirubin (0.0-1.0) mg/dL AST (5-37) U/L ALT (0-40) U/L Alkaline Phosphatase (39-117) U/L Troponin I High Sens (<3.5-35.0) ng/L B-Natriuretic Peptide 20 (<100) pg/mL Total Protein (6.5-8.0) g/dL Albumin (3.5-5.0) g/dL COVID-19 ([facility]) Negative (Negative) COVID-19 Clin Com See Note <KAITY Mcgovern - Last Filed: 05/27/22 18:06> Lab Results 05/27/22 05/27/22 05/27/22 Range/Units 17:57 17:57 17:57 WBC 20.5 H (4.8-10.8) X10*3/uL RBC 4.74 (4.60-5.80) X10*6/uL Hgb 14.3 (14.0-18.0) g/dl Hct 42.7 (42.0-52.0) % MCV 90.1 (80.0-98.0) fL MCH 30.2 (27.0-33.0) pg MCHC 33.5 (31.0-36.0) g/dl RDW 13.3 (11.0-16.0) % Plt Count 334 (160-400) X10*3/uL MPV 8.4 L (9.4-12.4) fL Immature Gran % (Auto) 0.8 H (0.0-0.4) % Neut % (Auto) 73.5 H (45-73) % Lymph % (Auto) 18.1 L (20-40) % [place] % (Auto) 7.1 (2-11) % Eos % (Auto) 0.2 (0-4) % Baso % (Auto) 0.3 (0-2) % Lymph # (Auto) 3.7 (1.2-4.9) X10*3/uL [place] # (Auto) 1.5 H (0.1-1.2) X10*3/uL Eos # (Auto) 0.0 (0.0-0.4) X10*3/uL Baso # (Auto) 0.1 (0.0-0.2) X10*3/uL Abs Immat Gran (auto) 0.16 H (0.00-0.03) X10*3/uL Absolute Neuts (auto) 15.0 H (2.0-8.3) x10*3/uL Absolute Nucleated RBC 0.000 (0.0-0.012) X10*3/uL Nucleated RBC % (auto) 0.0 (0.0-0.2) /100WBC APTT (26.0-36.4) SEC Sodium 139 (135-145) mmol/L Potassium 4.0 (3.3-5.1) mmol/L Chloride 104 (96-108) mmol/L Carbon Dioxide 23 (22-29) mmol/L Anion Gap 16 (12-20) BUN 8 L (9-16) mg/dL Creatinine 0.72 (0.5-1.4) mg/dL Estim Creat Clear Calc 113.4 Estimated GFR > 60 Random Glucose 147 H (60-115) mg/dL Calcium 9.2 (8.4-10.2) mg/dL Magnesium 2.0 (1.6-2.6) mg/dL Total Bilirubin 0.4 (0.0-1.0) mg/dL AST 11 (5-37) U/L ALT 19 (0-40) U/L Alkaline Phosphatase 85 (39-117) U/L Troponin I High Sens 4.3 (<3.5-35.0) ng/L B-Natriuretic Peptide (<100) pg/mL Total Protein 6.7 (6.5-8.0) g/dL Albumin 4.0 (3.5-5.0) g/dL COVID-19 ([facility]) (Negative) COVID-19 Clin Com 05/27/22 05/27/22 05/27/22 Range/Units 18:18 18:27 18:27 WBC (4.8-10.8) X10*3/uL RBC (4.60-5.80) X10*6/uL Hgb (14.0-18.0) g/dl Hct (42.0-52.0) % MCV (80.0-98.0) fL MCH (27.0-33.0) pg MCHC (31.0-36.0) g/dl RDW (11.0-16.0) % Plt Count (160-400) X10*3/uL MPV (9.4-12.4) fL Immature Gran % (Auto) (0.0-0.4) % Neut % (Auto) (45-73) % Lymph % (Auto) (20-40) % [place] % (Auto) (2-11) % Eos % (Auto) (0-4) % Baso % (Auto) (0-2) % Lymph # (Auto) (1.2-4.9) X10*3/uL [place] # (Auto) (0.1-1.2) X10*3/uL Eos # (Auto) (0.0-0.4) X10*3/uL Baso # (Auto) (0.0-0.2) X10*3/uL Abs Immat Gran (auto) (0.00-0.03) X10*3/uL Absolute Neuts (auto) (2.0-8.3) x10*3/uL Absolute Nucleated RBC (0.0-0.012) X10*3/uL Nucleated RBC % (auto) (0.0-0.2) /100WBC APTT 26.0 (26.0-36.4) SEC Sodium (135-145) mmol/L Potassium (3.3-5.1) mmol/L Chloride (96-108) mmol/L Carbon Dioxide (22-29) mmol/L Anion Gap (12-20) BUN (9-16) mg/dL Creatinine (0.5-1.4) mg/dL Estim Creat Clear Calc Estimated GFR Random Glucose (60-115) mg/dL Calcium (8.4-10.2) mg/dL Magnesium (1.6-2.6) mg/dL Total Bilirubin (0.0-1.0) mg/dL AST (5-37) U/L ALT (0-40) U/L Alkaline Phosphatase (39-117) U/L Troponin I High Sens (<3.5-35.0) ng/L B-Natriuretic Peptide 20 (<100) pg/mL Total Protein (6.5-8.0) g/dL Albumin (3.5-5.0) g/dL COVID-19 ([facility]) Negative (Negative) COVID-19 Clin Com See Note <Nadir Espinal - Last Filed: 05/27/22 22:44> Discharge Plan Discharge Clinical Impression: Acute asthma exacerbation <KAITY Mcgovern - Last Filed: 05/27/22 18:06> Patient Disposition: Home, Self-Care <KAITY Mcgovern - Last Filed: 05/27/22 18:06> Instructions: Asthma (ED) <KAITY Mcgovern - Last Filed: 05/27/22 18:06> Additional Instructions: your chest pain and back pain is most likely related to your asthma exacerbation. take prednisone 40 mg daily for the next 5 days use Tessalon Perles as needed for cough and congestion take Flexeril as needed for muscle spasms this may make you sleepy, do not drink alcohol or drive after taking it <KAITY Mcgovern - Last Filed: 05/27/22 18:06> Prescriptions: New prednisone 20 mg tablet 40 mg PO DAILY Qty: 10 0RF benzonatate 200 mg capsule 200 mg PO TID PRN (Reason: cough) Qty: 10 0RF cyclobenzaprine 10 mg tablet 10 mg PO TID PRN (Reason: muscle spasm) Qty: 10 0RF No Action magnesium citrate Solution 296 ml PO DAILY 2 Days Qty: 592 0RF Rx Instructions: DIspense 2 296mL bottles Breo Ellipta 200-25 mcg/dose blister with device 1 inh inhalation DAILY 30 Days Qty: 60 11RF prednisone 10 mg tablet 10 mg PO BID Qty: 60 3RF famotidine [Pepcid] 40 mg tablet 40 mg PO BEDTIME 90 Days Qty: 90 1RF omeprazole 40 mg capsule,delayed release(DR/EC) 40 mg PO DAILY 90 Days Qty: 90 1RF varenicline 0.5 mg (11)- 1 mg (42) tablets,dose pack See Rx Instructions .ROUTE DIRECTED Qty: 53 0RF Rx Instructions: as directed; Linzess 290 mcg capsule 290 mcg PO QAM Qty: 30 6RF albuterol sulfate [Ventolin HFA] 90 mcg/actuation HFA aerosol inhaler 2 puff PO Q6H PRN (Reason: for dyspnea) Qty: 18 5RF zafirlukast 20 mg tablet 20 mg PO BID 90 Days Qty: 180 0RF metformin 500 mg tablet 500 mg PO BID atorvastatin 10 mg tablet 10 mg PO BEDTIME amlodipine 5 mg tablet 5 mg PO DAILY tramadol 50 mg tablet 50 mg PO Q6H PRN (Reason: severe pain) acetaminophen 650 mg tablet extended release 650 mg PO Q8H PRN (Reason: Pain) baclofen 20 mg tablet 20 mg PO TID PRN (Reason: muscle spasm) mirtazapine 30 mg tablet 15 mg PO BEDTIME lidocaine [Lidoderm] 5 % adhesive patch,medicated 1 patch topical DAILY metoprolol succinate 25 mg tablet extended release 24 hr 25 mg PO DAILY calcium carbonate-vitamin D3 [Oyster Shell Calcium-Vit D3] 500 mg-5 mcg (200 unit) tablet 1 tab PO BID cholecalciferol (vitamin D3) 50 mcg (2,000 unit) tablet 2,000 unit PO DAILY Spiriva Respimat 2.5 mcg/actuation mist 2 puff PO DAILY aspirin 81 mg capsule 81 mg PO DAILY Qty: 30 0RF oxycodone 5 mg capsule 5 mg PO Q8H PRN (Reason: pain) Qty: 12 0RF Rx Instructions: Partial Fill upon patient request. clotrimazole 1 % cream topical nystatin 100,000 unit/gram cream 1 appl topical TID Qty: 15 0RF Combivent Respimat 20-100 mcg/actuation mist 1 puff inhalation Q6H 30 Days Qty: 4 11RF budesonide-formoterol [Symbicort] 160-4.5 mcg/actuation HFA aerosol inhaler 2 puff inhalation BID 30 Days Qty: 10.2 11RF varenicline [Chantix Continuing Month Box] 1 mg tablet 1 mg PO BID 28 Days Qty: 56 3RF peg 3350-electrolytes [Golytely] 236-22.74-6.74 -5.86 gram recon soln 240 ml PO Q10M 1 Days Qty: 4000 0RF Rx Instructions: until fecal effluent is clear; do not exceed a total volume of 2,000 mL bisacodyl [Dulcolax (bisacodyl)] 5 mg tablet,delayed release (DR/EC) 10 mg PO BEDTIME 2 Days Qty: 4 0RF Creon 24,000-76,000 -120,000 unit capsule,delayed release(DR/EC) 1 cap PO QID 30 Days Qty: 120 6RF Rx Instructions: administer with meals and/or snacks <KAITY Mcgovern - Last Filed: 05/27/22 18:06>
[2022-05-27 18:20] LABS: Alanine Aminotransferase 19 U/L (0-40); Alkaline Phosphatase 85 U/L (39-117); Anion Gap 16 (12-20); Aspartate Amino Transferase 11 U/L (5-37); Bilirubin Total 0.4 mg/dL (0.0-1.0); Blood Urea Nitrogen 8 mg/dL (9-16); Calcium 9.2 mg/dL (8.4-10.2); Carbon Dioxide 23 mmol/L (22-29); Chloride 104 mmol/L (96-108); Creatinine Clr Calc Pharmacy 113.4; Estimated Glomerular Filt Rate > 60; Glucose Random 147 mg/dL (60-115); Sodium 139 mmol/L (135-145); Total Protein 6.7 g/dL (6.5-8.0)
[2022-05-27 18:27] LABS: Troponin-I High Sensitivity 4.3 ng/L (<3.5-35.0)
[2022-05-27 18:30] VITALS: PULSE 90
[2022-05-27 18:59] LABS: COVID-19 Test Negative (Negative); IDNOW Serial# 9DB6401D
[2022-05-27 19:29] LABS: B Type Natriuretic Peptide 20 pg/mL (<100)
--- NOTE | 2022-05-27 20:49 | PC.NURSE ---
Assumed care of pt. at 1900. Pt. reporting pain in the chest/back area at 12/26. Pt. waiting to be picked up by ED provider. Explained i couldn't give anything for pain until he'd been seen by a provider and an order went in for pain meds. Pt. upset and wanting to leave. This RN explained through an inside sales account executive that a provider would be in shortly as they had just picked up the pt. and he was next to be seen. Provider in to see pt. and orders now pending. Respiratory called for a breathing treatment as provider also putting in an order for this.
[2022-05-27] MEDS: fentaNYL citrate/PF 100 MCG/2 ML VIAL 50 MCG IVPUSH (21:00)
[2022-05-27] MEDS: methylPREDNISolone Sod Succ 125 MG/2 ML VIAL IVPUSH (21:01)
[2022-05-27] MEDS: Magnesium Sulfate/D5W 1 GM/100 ML PIGGYBACK IV (21:01)
[2022-05-27 21:05] VITALS: O2SAT 96
[2022-05-27] MEDS: Ketorolac Tromethamine 15 MG/ML VIAL IVPUSH (22:28)
[2022-05-27 22:55] VITALS: BP 131/79; PULSE 85; RESP 20; O2SAT 95
== END 2022-05-27 23:04 | disposition home or self-care (01) ==
PROVIDERS: Physician Assistant Medical; Emergency Provider Student in an Organized Health Care Education/Training Program; PCP Family Medicine
DX: J45.901 Unspecified asthma with (acute) exacerbation (principal); R06.02 Shortness of breath; Z20.822 Contact with and (suspected) exposure to COVID-19; I10 Essential (primary) hypertension; E78.5 Hyperlipidemia, unspecified; F17.210 Nicotine dependence, cigarettes, uncomplicated; Z79.899 Other long term (current) drug therapy; Z79.02 Long term (current) use of antithrombotics/antiplatelets
CPT/HCPCS: 36415; 71046; 80053; 83735; 83880; 84484; 85025; 85730; 87635; 93005; 94640; 96365; 96375; 99284; 99285; J1885; J2930; J3010; J3475

== ENCOUNTER → 2022-06-14 09:09 | Outpatient (BNVA) | payer MEDICAID, SELFPAY | PROVIDERS: PCP Family Medicine; Visit Provider Hospitalist | DX: J44.1 Chronic obstructive pulmonary disease with (acute) exacerbation (principal); B34.9 Viral infection, unspecified; F17.210 Nicotine dependence, cigarettes, uncomplicated | CPT/HCPCS: 94640; 96372; 99212; J2930 ==

== ENCOUNTER 2022-06-21 13:51 | Outpatient (REF) | payer MEDICAID, SELFPAY ==
--- NOTE | ~2022-06-21 | US_ITS ---
EXAMINATION: US VENOUS ULTRASOUND WITH DOPPLER LOWER EXTREMITY, RIGHT CLINICAL INFORMATION: Right leg swelling COMPARISON: None available. TECHNIQUE: Ultrasound of the deep veins is performed from the hip to the calf with compression sonography and color and pulse Doppler assessment. Spectral analysis with color-flow imaging is performed. FINDINGS: There is normal venous compression and respiratory variation and augmented flow. The visualized common femoral vein, superficial femoral vein, profunda femoral vein, popliteal vein, and the trifurcation region shows no evidence of deep venous thrombosis. There is evidence of atherosclerotic disease. There is no significant popliteal fossa cyst. US/US venous duplex LE RT IMPRESSION: No DVT demonstrated in the right lower extremity.
== END 2022-06-21 13:52 | disposition home or self-care (01) ==
LOC: HO.US 13:51
PROVIDERS: Visit Provider General Practice
DX: R60.0 Localized edema (principal)
CPT/HCPCS: 93971

== ENCOUNTER 2022-07-12 01:44 | Emergency (ER) | payer MEDICAID, SELFPAY ==
--- NOTE | ~2022-07-12 | CT_ITS ---
EXAMINATION: CT ANGIOGRAM OF THE CHEST WITH AND WITHOUT CONTRAST (CT PULMONARY ANGIOGRAM FOR PE) CT ABDOMEN AND PELVIS WITH CONTRAST CLINICAL INFORMATION: Chest pain. Abdominal pain. COMPARISON: 12/16/2021 TECHNIQUE: Prior to contrast administration, noncontrast localization images were obtained. Subsequently, multidetector volumetric imaging was performed from the thoracic inlet to the pubic symphysis following the administration of 85 mL Omnipaque 350 intravenous contrast. This was followed by multidetector acquisition of the abdomen and pelvis. No contrast reaction reported Sagittal, coronal, and MIP oblique sagittal reformatted images were obtained on the CT workstation, uploaded to PACS, and reviewed. This CT examination was performed using dose optimization techniques as appropriate, variously including the following: *Automated exposure control *Adjustment of mA and/or kV according to patient size (this includes techniques or standardized protocols for targeted exams where dose is matched to indication/reason for exam; i.e. extremities or head) *Use of iterative reconstruction technique Total exam dose-length product 986 mGy-cm FINDINGS: QUALITY OF STUDY/CONTRAST BOLUS: Satisfactory. PULMONARY ARTERIES: No central or segmental pulmonary emboli. THORACIC AORTA: No aneurysm or dissection. LUNG: The central airways are patent. Mild bronchial wall thickening with scattered bronchial filling defects. Dependent consolidation in the left upper lobe along the fissure. A few small nodules are identified. For instance left upper lobe 0.3 cm nodule on series 8 image 216. 0.2 cm right lower lobe nodule on series 8 image 224. Right middle lobe 0.4 cm nodule on series 8 image 325. This is unchanged. PLEURA: No pleural effusion or pneumothorax. MEDIASTINUM: Normal heart size. Mild coronary artery calcification. No pericardial effusion. No hilar or mediastinal lymphadenopathy. No evidence of septal bowing or right heart strain. CHEST WALL/AXILLA: No axillary or internal mammary lymphadenopathy. LIVER, GALLBLADDER, AND BILIARY TREE: The liver is normal in size, shape, and attenuation. No focal hepatic lesion or biliary ductal dilatation is present. The gallbladder is contracted with no evidence of radiopaque gallstones, gallbladder wall thickening, or obvious pericholecystic inflammatory changes. PANCREAS: Unremarkable. SPLEEN: Unremarkable. ADRENAL GLANDS: Unremarkable. KIDNEYS AND URETERS: The kidneys are normal in size, shape, and attenuation. No hydronephrosis, hydroureter, or calculi seen. No perinephric stranding. BLADDER: Unremarkable. GASTROINTESTINAL TRACT: The stomach is unremarkable. Normal caliber small bowel. No obstruction. Normal appendix. No colonic wall thickening or inflammation. No free air or free fluid. ABDOMINAL WALL: No significant hernia is appreciated. LYMPH NODES: Normal. VASCULAR: Normal caliber aorta with mild atherosclerotic calcification. PELVIC VISCERA: Evaluation limited due to artifact from bilateral hip arthroplasty hardware. OSSEOUS STRUCTURES: Bilateral total hip arthroplasties. No evidence of failure. Degenerative changes throughout the spine. Compression deformity of the T5 vertebral body approximately 70% loss of anterior vertebral body height. This is new compared to 12/16/2021. This also appears to be new compared to 05/27/2022. CT/CT angio chest PE protocol IMPRESSION: 1. No pulmonary embolism. 2. Bronchial wall thickening with scattered bronchial filling defects. This could be associated with a small airways process such as asthma or atypical/viral infection. 3. No acute finding in the abdomen or pelvis. 4. T5 vertebral body compression deformity is new from 12/16/2021 and likely from 05/27/2022. VTE: negative
[2022-07-12 01:46] VITALS: BP 144/90; PULSE 116; RESP 20; TEMP 36.1; O2SAT 95; BMI 27.8
[2022-07-12 02:00] VITALS: BP 133/81; PULSE 96; RESP 16; TEMP 36.7; O2SAT 95
--- NOTE | 2022-07-12 02:16 | ECG_ITS ---
Test Reason : DYSPNEA Blood Pressure : / mmHG Vent. Rate : 096 BPM Atrial Rate : 096 BPM P-R Int : 142 ms QRS Dur : 070 ms QT Int : 334 ms P-R-T Axes : 051 007 044 degrees QTc Int : 421 ms Normal sinus rhythm Normal ECG When compared with ECG of 27-MAY-2022 17:49, No significant change was found Referred By: Natividad Ross Electronically Signed By:Sherwin Thomas
--- NOTE | 2022-07-12 02:18 | ED.SOB ---
HPI - SOB/Dyspnea General Chief Complaint: Dyspnea Stated Complaint: Respiratory Distress? Time Seen by Provider: 07/12/22 02:04 History of Present Illness HPI Narrative: Patient is a 52-year-old male with a history of COPD. History of diabetes. Recently discharged from [facility] 2 weeks ago. Patient presented today with having 2 month history of chest tightness. Abdominal tightness. No good bowel movement. Pain everywhere. Patient is passing gas. No pain on urination. No coughing or congestion or upper respiratory symptoms. No diaphoresis. No leg swelling. Related Data Home Medications Medication Instructions Recorded Confirmed acetaminophen 650 mg 650 mg PO Q8H PRN Pain 05/28/21 01/13/22 tablet,extended release amlodipine 5 mg tablet 5 mg PO DAILY 05/28/21 01/13/22 atorvastatin 10 mg tablet 10 mg PO BEDTIME 05/28/21 01/13/22 baclofen 20 mg tablet 20 mg PO TID PRN muscle spasm 05/28/21 01/13/22 calcium carbonate 500 mg-vitamin 1 tab PO BID 05/28/21 01/13/22 D3 5 mcg (200 unit) tablet (Oyster Shell Calcium-Vitamin D3) cholecalciferol (vitamin D3) 50 2,000 unit PO DAILY 05/28/21 01/13/22 mcg (2,000 unit) tablet lidocaine 5 % topical patch 1 patch topical DAILY 05/28/21 01/13/22 (Lidoderm) metformin 500 mg tablet 500 mg PO BID 05/28/21 01/13/22 metoprolol succinate 25 mg 25 mg PO DAILY 05/28/21 01/13/22 tablet,extended release 24 hr mirtazapine 30 mg tablet 15 mg PO BEDTIME 05/28/21 01/13/22 tiotropium bromide 2.5 2 puff PO DAILY 05/28/21 01/13/22 mcg/actuation mist for inhalation (Spiriva Respimat) tramadol 50 mg tablet 50 mg PO Q6H PRN severe pain 05/28/21 01/13/22 clotrimazole 1 % topical cream appl topical 07/26/21 11/24/21 nebulizers 06/14/22 Previous Rx's Medication Instructions Recorded magnesium citrate 296 ml PO DAILY 2 days #592 mL 07/26/21 nystatin 100,000 unit/gram topical 1 appl topical TID #15 grams 07/26/21 cream fluticasone furoate 200 1 inh inhalation DAILY 30 days #60 08/08/21 mcg-vilanterol 25 mcg/dose ea inhalation powder (Breo Ellipta) aspirin 81 mg capsule 81 mg PO DAILY #30 caps 09/16/21 budesonide-formoterol HFA 160 2 puff inhalation BID 30 days 11/14/21 mcg-4.5 mcg/actuation aerosol #10.2 grams inhaler (Symbicort) ipratropium 20 mcg-albuterol 100 1 puff inhalation Q6H 30 days #4 11/14/21 mcg/actuation mist for inhalation grams (Combivent Respimat) varenicline 1 mg tablet (Chantix 1 mg PO BID 28 days #56 tabs 02/20/22 Continuing Month Box) bisacodyl 5 mg tablet,delayed 10 mg PO BEDTIME 2 days #4 tabs 03/09/22 release (Dulcolax (bisacodyl)) [id number] 1 cap PO QID 30 days #120 caps 03/09/22 24,000-76,000-120,000 unit capsule,delayed rel (Creon) peg 3350-electrolytes 236 240 ml PO Q10M 1 day #4,000 mL 03/09/22 gram-22.74 gram-6.74 gram-5.86 gram solution (Golytely) famotidine 40 mg tablet (Pepcid) 40 mg PO BEDTIME 90 days #90 tabs 03/17/22 omeprazole 40 mg capsule,delayed 40 mg PO DAILY 90 days #90 caps 03/17/22 release varenicline 0.5 mg (11)-1 mg (42) See Rx Instructions .Route 03/21/22 tablets in a dose pack DIRECTED #53 ea oxycodone 5 mg capsule 5 mg PO Q8H PRN pain #12 caps 04/09/22 linaclotide 290 mcg capsule 290 mcg PO QAM #30 caps 04/18/22 (Linzess) albuterol sulfate 90 mcg/actuation 2 puff PO Q6H PRN for dyspnea #18 04/28/22 aerosol inhaler (Ventolin HFA) ea zafirlukast 20 mg tablet 20 mg PO BID 90 days #180 tabs 05/02/22 benzonatate 200 mg capsule 200 mg PO TID PRN cough #10 caps 05/27/22 cyclobenzaprine 10 mg tablet 10 mg PO TID PRN muscle spasm #10 05/27/22 tabs prednisone 20 mg tablet 40 mg PO DAILY #10 tabs 05/27/22 codeine 10 mg-guaifenesin 100 mg/5 10 ml PO Q6H PRN cough 10 days 06/14/22 mL oral liquid #300 mL doxycycline monohydrate 100 mg 100 mg PO BID 14 days #28 tabs 06/14/22 tablet prednisone 20 mg tablet See Rx Instructions PO DAILY 10 06/14/22 days #15 tabs prednisone 10 mg tablet 10 mg PO BID #60 tabs 07/10/22 Allergies Allergy/AdvReac Type Severity Reaction Status Date / Time ibuprofen [From Motrin] Allergy Rash Verified 06/14/22 09:23 Review of Systems Review of Systems: No fever no chills no cough no congestion Yes all other systems are reviewed and are negative PMFSH Past Medical History Attestation statement: The following information was validated with the patient. Medical History Anxiety and depression Arthritis Asthma Asthma-COPD overlap syndrome Back pain Chronic abdominal pain COPD (chronic obstructive pulmonary disease) GERD (gastroesophageal reflux disease) History of COVID-19 History of kidney stones HTN (hypertension) Hyperlipidemia Irritable bowel syndrome Leukocytosis Osteoporosis (~2001) Personal history of nicotine dependence Tubular adenoma of colon (~2019) Viral syndrome Surgical History History of bilateral hip replacements History of colonoscopy (~2005) History of colonoscopy with polypectomy (~2020) History of hip surgery (~2001) History of hydrocelectomy History of surgery on right wrist (~2014) S/P extracorporeal shock wave therapy (~2013) Shoulder symptoms with history of shoulder arthroplasty Family History Family History Father No problems noted. Mother No problems noted. Son No problems noted. Daughter No problems noted. Social History Social History Alcohol intake: unknown Patient Tobacco Use Status: Current everyday Tobacco user Tobacco use type: Cigarette Cigarette Packs Per Day: 0.5 Years Smoked: (onset 14yo, 1/2-3/4ppd x 37yrs, 23pyh) Second Hand Smoke Exposure: No Advance Directives: Yes Advance Directives on File: Yes Advance Directives Date on File: 05/30/21 service: No Current occupational status: disabled Physical Exam Vital Signs: Vital Signs: Last Vital Signs Temp 97.8 F 07/12/22 04:27 Pulse 100 07/12/22 04:27 Resp 20 07/12/22 04:27 BP 120/72 07/12/22 04:27 Pulse Ox 94 07/12/22 04:27 O2 Del Method Room Air 07/12/22 04:27 BMI result Body Mass Index 27.8 Appearance: Alert. Oriented X3. No acute distress. Eyes: Pupils equal, round and reactive to light. ENT: Pharynx normal. Neck: Normal inspection. Neck supple. No lymph nodes noted. No crepitus CVS: Normal heart rate and rhythm. Pulses normal. Normal S1 and S2 Respiratory: No respiratory distress. Breath sounds normal. No Wheezing. No rales Abdomen: Soft and nontender. No rigidity. No distention. good BS x4 Skin: Skin warm and dry. Normal skin color. Normal skin turgor. Extremities: No lower extremity edema. Neurovascular intact to all extremities. No Lacerations. No Rash Neuro: Oriented X 3. No motor deficit. No sensory deficit. Moving all extermities. No slurred speech Medications Administered Discontinued Medications Generic Name Dose Route Start Last Admin Trade Name Freq PRN Reason Stop Dose Admin Hydromorphone HCl 0.5 mg 07/12/22 02:16 07/12/22 03:05 Hydromorphone Hcl 0.5 Mg/0.5 Ml Syringe IVPUSH 07/12/22 02:17 0.5 mg ONCE ONE Administration Protocol Sodium Chloride 1,000 mls @ 999 mls/hr 07/12/22 02:30 07/12/22 04:11 Ns IV 07/12/22 03:30 Infused .Q1H1M RAHEL Infusion Insulin Human Regular 8 unit 07/12/22 03:30 07/12/22 03:43 Insulin Regular, Human 100 Unit/Ml 3 Ml Vial 0.1 unit/kg (8 unit) 07/12/22 03:31 8 unit IVPUSH Administration ONCE ONE Iohexol 85 ml 07/12/22 04:13 07/12/22 04:18 Iohexol 350 Mg/Ml 100 Ml Infus..Btl IV 07/12/22 04:14 85 ml ONCE ONE Administration Medical Decision Making Medical Decision Making [facility] Narrative: Patient is complaining of nonspecific chest tightness that has been ongoing for months. He was admitted to [facility] for COPD recently. He is on steroids for COPD. Presented today with having shortness of breath chest tightness. Patient's troponin was negative. My interpretation of patient's EKG showed a sinus pattern heart rate is 100 RI QRS QT within normal limits. Patient's BMP was 18. There is no at evidence for congestive heart failure. CTA of the chest was done. There is no evidence for pulmonary emboli. There is no large pneumonia. There is no rib fracture. There is no pneumothorax. CT scan of the abdomen pelvis was done. There is no bird obstruction, abscess, perforation. There is no diverticulitis. There is no appendicitis. COVID flu RSV withdrawn. They are all negative. Patient's sugar was over 400. Given insulin monitor in the emergency department sugars down to 150. Patient's urine showed no signs of infection. Differential Diagnosis Differential Diagnoses: The differential diagnosis associated with the presentation includes Hyperglycemia, COPD, chest pain, constipation, Lab Data [facility] Lab Attestation statement: I reviewed the patient's lab results. 07/12/22 02:54 07/12/22 02:54 Labs: Lab Results 07/12/22 07/12/22 07/12/22 Range/Units 02:54 02:54 02:54 WBC 21.5 H (4.8-10.8) X10*3/uL RBC 4.36 L (4.60-5.80) X10*6/uL Hgb 13.6 L (14.0-18.0) g/dl Hct 39.9 L (42.0-52.0) % MCV 91.5 (80.0-98.0) fL MCH 31.2 (27.0-33.0) pg MCHC 34.1 (31.0-36.0) g/dl RDW 14.0 (11.0-16.0) % Plt Count 417 H (160-400) X10*3/uL MPV 8.7 L (9.4-12.4) fL Immature Gran % (Auto) Cancelled Neut % (Auto) Cancelled Lymph % (Auto) Cancelled Real % (Auto) Cancelled Eos % (Auto) Cancelled Baso % (Auto) Cancelled Lymph # (Auto) Cancelled Real # (Auto) Cancelled Eos # (Auto) Cancelled Baso # (Auto) Cancelled Abs Immat Gran (auto) Cancelled Absolute Neuts (auto) Cancelled Absolute Nucleated RBC 0.000 (0.0-0.012) X10*3/uL Nucleated RBC % (auto) 0.0 (0.0-0.2) /100WBC Neutrophils % (Manual) 82 H (45-73) % Band Neutrophils % 1 L (3-5) % Lymphocytes % (Manual) 12 L (20-40) % Monocytes % (Manual) 4 (2-11) % Promyelocytes % 1 % Abs Neuts (Manual) 17.8 H (2.0-8.3) X10*3/uL Lymphocytes # (Manual) 2.6 (1.2-4.9) X10*3/uL Monocytes # (Manual) 0.9 (0.1-1.2) X10*3/uL Promyelocytes # 0.2 X10*3/uL Smudge Cells PRESENT Toxic Vacuolation PRESENT Platelet Estimate NORMAL (NORMAL) Large Platelets PRESENT Plt Morphology Comment NORMAL RBC Morphology NORMAL PT (10.0-13.1) SEC INR (0.9-1.1) Sodium 134 L (135-145) mmol/L Potassium 4.6 (3.3-5.1) mmol/L Chloride 97 (96-108) mmol/L Carbon Dioxide 26 (22-29) mmol/L Anion Gap 16 (12-20) BUN 15 (9-16) mg/dL Creatinine 1.09 (0.5-1.4) mg/dL Estim Creat Clear Calc 78.8 Estimated GFR > 60 Random Glucose 435 H* (60-115) mg/dL Calcium 9.6 (8.4-10.2) mg/dL Total Bilirubin 0.4 (0.0-1.0) mg/dL Direct Bilirubin 0.1 (0.0-0.5) mg/dL AST 9 (5-37) U/L ALT 18 (0-40) U/L Alkaline Phosphatase 105 (39-117) U/L Troponin I High Sens 4.0 (<3.5-35.0) ng/L B-Natriuretic Peptide (<100) pg/mL Total Protein 6.4 L (6.5-8.0) g/dL Albumin 3.9 (3.5-5.0) g/dL Lipase 69 (8-78) U/L Urine Color Urine Appearance Urine pH (5.0-9.0) Ur Specific [place] (1.005-1.025) Urine Protein (Neg-Trace) mg/dL Urine Glucose (UA) (Negative) mg/dL Urine Ketones (Negative) mg/dL Urine Blood (Negative) Urine Nitrite (Negative) Ur Leukocyte Esterase (Negative) Urine RBC (0-2) /HPF Urine WBC (0-5) /HPF Ur Squamous Epith Cells (0-2) /HPF Urine Bacteria (None Seen) Hyaline Casts (0-2) /LPF Influenza Type A (PCR) (Negative) Influenza Type B (PCR) (Negative) RSV RNA Qual (PCR) (Negative) SARS-CoV-2 RNA (RT-PCR) (Negative) 07/12/22 07/12/22 07/12/22 Range/Units 02:54 02:54 02:54 WBC (4.8-10.8) X10*3/uL RBC (4.60-5.80) X10*6/uL Hgb (14.0-18.0) g/dl Hct (42.0-52.0) % MCV (80.0-98.0) fL MCH (27.0-33.0) pg MCHC (31.0-36.0) g/dl RDW (11.0-16.0) % Plt Count (160-400) X10*3/uL MPV (9.4-12.4) fL Immature Gran % (Auto) Neut % (Auto) Lymph % (Auto) Real % (Auto) Eos % (Auto) Baso % (Auto) Lymph # (Auto) Real # (Auto) Eos # (Auto) Baso # (Auto) Abs Immat Gran (auto) Absolute Neuts (auto) Absolute Nucleated RBC (0.0-0.012) X10*3/uL Nucleated RBC % (auto) (0.0-0.2) /100WBC Neutrophils % (Manual) (45-73) % Band Neutrophils % (3-5) % Lymphocytes % (Manual) (20-40) % Monocytes % (Manual) (2-11) % Promyelocytes % % Abs Neuts (Manual) (2.0-8.3) X10*3/uL Lymphocytes # (Manual) (1.2-4.9) X10*3/uL Monocytes # (Manual) (0.1-1.2) X10*3/uL Promyelocytes # X10*3/uL Smudge Cells Toxic Vacuolation Platelet Estimate (NORMAL) Large Platelets Plt Morphology Comment RBC Morphology PT 10.4 (10.0-13.1) SEC INR 0.9 (0.9-1.1) Sodium (135-145) mmol/L Potassium (3.3-5.1) mmol/L Chloride (96-108) mmol/L Carbon Dioxide (22-29) mmol/L Anion Gap (12-20) BUN (9-16) mg/dL Creatinine (0.5-1.4) mg/dL Estim Creat Clear Calc Estimated GFR Random Glucose (60-115) mg/dL Calcium (8.4-10.2) mg/dL Total Bilirubin (0.0-1.0) mg/dL Direct Bilirubin (0.0-0.5) mg/dL AST (5-37) U/L ALT (0-40) U/L Alkaline Phosphatase (39-117) U/L Troponin I High Sens (<3.5-35.0) ng/L B-Natriuretic Peptide 18 (<100) pg/mL Total Protein (6.5-8.0) g/dL Albumin (3.5-5.0) g/dL Lipase (8-78) U/L Urine Color Urine Appearance Urine pH (5.0-9.0) Ur Specific [place] (1.005-1.025) Urine Protein (Neg-Trace) mg/dL Urine Glucose (UA) (Negative) mg/dL Urine Ketones (Negative) mg/dL Urine Blood (Negative) Urine Nitrite (Negative) Ur Leukocyte Esterase (Negative) Urine RBC (0-2) /HPF Urine WBC (0-5) /HPF Ur Squamous Epith Cells (0-2) /HPF Urine Bacteria (None Seen) Hyaline Casts (0-2) /LPF Influenza Type A (PCR) NEGATIVE (Negative) Influenza Type B (PCR) NEGATIVE (Negative) RSV RNA Qual (PCR) NEGATIVE (Negative) SARS-CoV-2 RNA (RT-PCR) NEGATIVE (Negative) 07/12/22 Range/Units 02:54 WBC (4.8-10.8) X10*3/uL RBC (4.60-5.80) X10*6/uL Hgb (14.0-18.0) g/dl Hct (42.0-52.0) % MCV (80.0-98.0) fL MCH (27.0-33.0) pg MCHC (31.0-36.0) g/dl RDW (11.0-16.0) % Plt Count (160-400) X10*3/uL MPV (9.4-12.4) fL Immature Gran % (Auto) Neut % (Auto) Lymph % (Auto) Real % (Auto) Eos % (Auto) Baso % (Auto) Lymph # (Auto) Real # (Auto) Eos # (Auto) Baso # (Auto) Abs Immat Gran (auto) Absolute Neuts (auto) Absolute Nucleated RBC (0.0-0.012) X10*3/uL Nucleated RBC % (auto) (0.0-0.2) /100WBC Neutrophils % (Manual) (45-73) % Band Neutrophils % (3-5) % Lymphocytes % (Manual) (20-40) % Monocytes % (Manual) (2-11) % Promyelocytes % % Abs Neuts (Manual) (2.0-8.3) X10*3/uL Lymphocytes # (Manual) (1.2-4.9) X10*3/uL Monocytes # (Manual) (0.1-1.2) X10*3/uL Promyelocytes # X10*3/uL Smudge Cells Toxic Vacuolation Platelet Estimate (NORMAL) Large Platelets Plt Morphology Comment RBC Morphology PT (10.0-13.1) SEC INR (0.9-1.1) Sodium (135-145) mmol/L Potassium (3.3-5.1) mmol/L Chloride (96-108) mmol/L Carbon Dioxide (22-29) mmol/L Anion Gap (12-20) BUN (9-16) mg/dL Creatinine (0.5-1.4) mg/dL Estim Creat Clear Calc Estimated GFR Random Glucose (60-115) mg/dL Calcium (8.4-10.2) mg/dL Total Bilirubin (0.0-1.0) mg/dL Direct Bilirubin (0.0-0.5) mg/dL AST (5-37) U/L ALT (0-40) U/L Alkaline Phosphatase (39-117) U/L Troponin I High Sens (<3.5-35.0) ng/L B-Natriuretic Peptide (<100) pg/mL Total Protein (6.5-8.0) g/dL Albumin (3.5-5.0) g/dL Lipase (8-78) U/L Urine Color Yellow Urine Appearance Clear Urine pH 5.5 (5.0-9.0) Ur Specific [place] >= 1.030 H (1.005-1.025) Urine Protein Negative (Neg-Trace) mg/dL Urine Glucose (UA) >=1000 H (Negative) mg/dL Urine Ketones Trace (Negative) mg/dL Urine Blood Small (1+) H (Negative) Urine Nitrite Negative (Negative) Ur Leukocyte Esterase Negative (Negative) Urine RBC 6-10 H (0-2) /HPF Urine WBC 0-5 (0-5) /HPF Ur Squamous Epith Cells 0-2 (0-2) /HPF Urine Bacteria None Seen (None Seen) Hyaline Casts 0-2 (0-2) /LPF Influenza Type A (PCR) (Negative) Influenza Type B (PCR) (Negative) RSV RNA Qual (PCR) (Negative) SARS-CoV-2 RNA (RT-PCR) (Negative) Discharge Plan Discharge Clinical Impression: Chest pain, Abdominal pain Patient Disposition: Home, Self-Care Instructions: Chest Pain (DC), Acute Abdominal Pain (DC), Diabetic Hyperglycemia (ED) Additional Instructions: Hold metformin for 24 hours. Drink lots of fluids. Prescriptions: No Action magnesium citrate Solution 296 ml PO DAILY 2 Days Qty: 592 0RF Rx Instructions: DIspense 2 296mL bottles Breo Ellipta 200-25 mcg/dose blister with device 1 inh inhalation DAILY 30 Days Qty: 60 11RF famotidine [Pepcid] 40 mg tablet 40 mg PO BEDTIME 90 Days Qty: 90 1RF omeprazole 40 mg capsule,delayed release(DR/EC) 40 mg PO DAILY 90 Days Qty: 90 1RF varenicline 0.5 mg (11)- 1 mg (42) tablets,dose pack See Rx Instructions .ROUTE DIRECTED Qty: 53 0RF Rx Instructions: as directed; Linzess 290 mcg capsule 290 mcg PO QAM Qty: 30 6RF albuterol sulfate [Ventolin HFA] 90 mcg/actuation HFA aerosol inhaler 2 puff PO Q6H PRN (Reason: for dyspnea) Qty: 18 5RF zafirlukast 20 mg tablet 20 mg PO BID 90 Days Qty: 180 0RF prednisone 10 mg tablet 10 mg PO BID Qty: 60 6RF metformin 500 mg tablet 500 mg PO BID atorvastatin 10 mg tablet 10 mg PO BEDTIME amlodipine 5 mg tablet 5 mg PO DAILY tramadol 50 mg tablet 50 mg PO Q6H PRN (Reason: severe pain) acetaminophen 650 mg tablet extended release 650 mg PO Q8H PRN (Reason: Pain) baclofen 20 mg tablet 20 mg PO TID PRN (Reason: muscle spasm) mirtazapine 30 mg tablet 15 mg PO BEDTIME lidocaine [Lidoderm] 5 % adhesive patch,medicated 1 patch topical DAILY metoprolol succinate 25 mg tablet extended release 24 hr 25 mg PO DAILY calcium carbonate-vitamin D3 [Oyster Shell Calcium-Vit D3] 500 mg-5 mcg (200 unit) tablet 1 tab PO BID cholecalciferol (vitamin D3) 50 mcg (2,000 unit) tablet 2,000 unit PO DAILY Spiriva Respimat 2.5 mcg/actuation mist 2 puff PO DAILY aspirin 81 mg capsule 81 mg PO DAILY Qty: 30 0RF oxycodone 5 mg capsule 5 mg PO Q8H PRN (Reason: pain) Qty: 12 0RF Rx Instructions: Partial Fill upon patient request. prednisone 20 mg tablet 40 mg PO DAILY Qty: 10 0RF benzonatate 200 mg capsule 200 mg PO TID PRN (Reason: cough) Qty: 10 0RF cyclobenzaprine 10 mg tablet 10 mg PO TID PRN (Reason: muscle spasm) Qty: 10 0RF clotrimazole 1 % cream topical nystatin 100,000 unit/gram cream 1 appl topical TID Qty: 15 0RF Combivent Respimat 20-100 mcg/actuation mist 1 puff inhalation Q6H 30 Days Qty: 4 11RF budesonide-formoterol [Symbicort] 160-4.5 mcg/actuation HFA aerosol inhaler 2 puff inhalation BID 30 Days Qty: 10.2 11RF varenicline [Chantix Continuing Month Box] 1 mg tablet 1 mg PO BID 28 Days Qty: 56 3RF peg 3350-electrolytes [Golytely] 236-22.74-6.74 -5.86 gram recon soln 240 ml PO Q10M 1 Days Qty: 4000 0RF Rx Instructions: until fecal effluent is clear; do not exceed a total volume of 2,000 mL bisacodyl [Dulcolax (bisacodyl)] 5 mg tablet,delayed release (DR/EC) 10 mg PO BEDTIME 2 Days Qty: 4 0RF Creon 24,000-76,000 -120,000 unit capsule,delayed release(DR/EC) 1 cap PO QID 30 Days Qty: 120 6RF Rx Instructions: administer with meals and/or snacks (DME) [place] [facility] [place] .ROUTE Rx Instructions: As directed prednisone 20 mg tablet See Rx Instructions PO DAILY 10 Days Qty: 15 0RF Rx Instructions: PO daily; Take 2 tabs daily x 5 days, then 1 tablet daily x 5 days doxycycline monohydrate 100 mg tablet 100 mg PO BID 14 Days Qty: 28 0RF codeine-guaifenesin 10-100 mg/5 mL liquid 10 ml PO Q6H PRN (Reason: cough) 10 Days Qty: 300 0RF Referrals: Physician,Unknown J [Primary Care Provider] - 07/14/22 Print Language: Malawian
[2022-07-12 03:05] VITALS: RESP 16
[2022-07-12] MEDS: HYDROmorphone HCl 0.5 MG/0.5 ML SYRINGE IVPUSH (03:05)
[2022-07-12] MEDS: 0.9 % Sodium Chloride 1,000 ML 999 ML IV (03:05)
[2022-07-12 03:07] LABS: Hematocrit 39.9 % (42.0-52.0); Hemoglobin 13.6 g/dl (14.0-18.0); Mean Corpuscular HGB Conc 34.1 g/dl (31.0-36.0); Mean Corpuscular Hemoglobin 31.2 pg (27.0-33.0); Mean Corpuscular Volume 91.5 fL (80.0-98.0); Mean Platelet Volume 8.7 fL (9.4-12.4); Platelet Count 417 X10*3/uL (160-400); Red Blood Count 4.36 X10*6/uL (4.60-5.80)
[2022-07-12 03:10] LABS: WBC ABN SCTR FOR CBC 1; White Blood Count 21.5 X10*3/uL (4.8-10.8)
[2022-07-12 03:13] LABS: Appearance Urine Clear; Color Urine Yellow; Glucose Urine UA >=1000 mg/dL (Negative); Leukocyte Esterase Urine Negative (Negative); Nitrite Urine Negative (Negative); PH 5.5 (5.0-9.0); Specific Gravity - Urine >= 1.030 (1.005-1.025); UMIC TRIGGER UACC YES; Urine Blood Small (1+) (Negative); Urine Ketones Trace mg/dL (Negative); Urine Protein Negative (Neg-Trace)
[2022-07-12 03:14] LABS: INTERNATIONAL NORM RATIO 0.9 (0.9-1.1); Prothrombin Time 10.4 SEC (10.0-13.1)
[2022-07-12 03:15] LABS: Bacteria Urine None Seen (None Seen); Hyaline Casts Urine 0-2 /LPF (0-2); Squamous Epithelial Cell Urine 0-2 /HPF (0-2); WBC Urine 0-5 /HPF (0-5)
[2022-07-12 03:29] LABS: Alanine Aminotransferase 18 U/L (0-40); Albumin Level 3.9 g/dL (3.5-5.0); Alkaline Phosphatase 105 U/L (39-117); Anion Gap 16 (12-20); Aspartate Amino Transferase 9 U/L (5-37); B Type Natriuretic Peptide 18 pg/mL (<100); Band Neutrophils Percent 1 % (3-5); Bilirubin Direct 0.1 mg/dL (0.0-0.5); Bilirubin Total 0.4 mg/dL (0.0-1.0); Blood Urea Nitrogen 15 mg/dL (9-16); Calcium 9.6 mg/dL (8.4-10.2); Carbon Dioxide 26 mmol/L (22-29); Chloride 97 mmol/L (96-108); Creatinine Clr Calc Pharmacy 78.8; Estimated Glomerular Filt Rate > 60; Glucose Random 435 mg/dL (60-115); Large Platelet PRESENT; Lipase 69 U/L (8-78); Lymphocytes Absolute Manual 2.6 X10*3/uL (1.2-4.9); Lymphocytes Percent Manual 12 % (20-40); Monocytes Absolute Manual 0.9 X10*3/uL (0.1-1.2); Monocytes Percent Manual 4 % (2-11); Neutrophils Absolute Manual 17.8 X10*3/uL (2.0-8.3); Neutrophils Percent Manual 82 % (45-73); Platelet Estimate NORMAL (NORMAL); Platelet Morphology Comment NORMAL; Potassium 4.6 mmol/L (3.3-5.1); Promyelocytes Absolute 0.2 X10*3/uL; Promyelocytes Percent 1 %; RBC Morphology NORMAL; Smudge Cells PRESENT; Sodium 134 mmol/L (135-145); Total Protein 6.4 g/dL (6.5-8.0); Toxic Vacuolation PRESENT
[2022-07-12] MEDS: Insulin Regular, Human 100 UNIT/ML 3 ML VIAL 8 UNIT IVPUSH (03:43)
[2022-07-12 03:44] LABS: Influenza A PCR NEGATIVE (Negative); Influenza B PCR NEGATIVE (Negative); Resp Syncy Virus RNA Qual PCR NEGATIVE (Negative); SARS COV2 PCR INHOUSE NEGATIVE (Negative)
[2022-07-12] MEDS: iohexoL 350 MG/ML 100 ML INFUS..BTL 85 ML IV (04:18)
[2022-07-12 04:27] VITALS: BP 120/72; PULSE 100; RESP 20; TEMP 36.6; O2SAT 94
[2022-07-12 04:57] LABS: Glucose, Whole Blood 151 mg/dL (60-115)
--- NOTE | 2022-07-12 05:32 | PC.NURSE ---
Upon discharge, pt was upset with ED provider's evaluation and decision to discharge. This RN had a discussion with the provider about the pt's disposition and affirmed that we conducted a complete and thorough assessment of the pt's chief complaints. Pt agreed to be discharged but requested a copy of all his scan results. Copies provided to the pt prior to being discharged.
== END 2022-07-12 06:09 | disposition home or self-care (01) ==
PROVIDERS: Emergency Provider Emergency Medicine Emergency Medical Services
DX: R06.02 Shortness of breath (principal); R10.30 Lower abdominal pain, unspecified; R10.2 Pelvic and perineal pain; R07.89 Other chest pain; Z20.822 Contact with and (suspected) exposure to COVID-19; Z20.828 Contact with and (suspected) exposure to other viral communicable diseases; F17.210 Nicotine dependence, cigarettes, uncomplicated; Z71.6 Tobacco abuse counseling
CPT/HCPCS: 0241U; 36415; 71275; 74177; 80048; 80076; 81001; 82947; 83690; 83880; 84484; 85007; 85027; 85610; 93005; 96361; 96374; 96375; 99284; J1170; Q9967

== ENCOUNTER 2022-07-25 12:49 | Outpatient (REF) | payer MEDICAID, SELFPAY ==
--- NOTE | ~2022-07-25 | MM_ITS ---
EXAMINATION: BONE DENSITOMETRY CLINICAL INDICATION: Other osteoporosis without current pathological fracture. COMPARISON: Previous BD dated 06/27/2018 and baseline BD dated 08/18/2010. TECHNIQUE: Using a [employer] DXA System (software version: 13.1) manufactured by [employer], dual-energy x-ray absorptiometry was performed of the lumbar spine and left forearm radius 33%. There are bilateral hip replacements precluding bone density measurement of the hip. The images are of good technical quality. Summary results are attached. FINDINGS: AP SPINE L1-L4: Current: BMD 0.759 g/cm2, Z-score -3.4, T-score -3.8, osteoporosis, 8.7% increase from previous, 2.7% increase from baseline (<5% change is not significant). Prior: BMD 0.698 g/cm2. Baseline: BMD 0.739 g/cm2. LEFT FOREARM RADIUS 33%: There is fusiform contour of mid ulnar shaft similar to prior densitometry image from 2019, possibly related to old healed fracture. BMD 0.843 g/cm2, Z-score -1.3, T-score -1.5, osteopenia, 5.5% increase from previous, 0.2% increase from baseline (<5% change is not significant). Prior: BMD 0.799 g/cm2. Baseline: BMD 0.841 g/cm2. IDENTIFIED RISK FACTORS: Height loss, glucocorticoids (chronic), history of fracture (adult), osteoporosis, secondary osteoporosis, tobacco use (current smoker). HISTORY OF FRACTURE: Spine. MEDICATIONS: Calcium supplements or multivitamin, vitamin D. MM/XR DEXA axial skeleton IMPRESSION: 1. DIAGNOSIS: Osteoporosis based on the lowest T-score value of -3.8 in the lumbar spine applying World Health Organization criteria. 2. 10-YEAR FRACTURE RISK PREDICTION, FRAX: According to the guidelines, FRAX calculation should only be performed on patients in the osteopenia bone density category. Therefore, FRAX was not performed on this patient. 3. Treatment Recommendations: NOF guidelines recommend consideration for treatment in postmenopausal women and men age 50 and older presenting with the following: -A hip or vertebral (clinical or morphometric) fracture. -T-score less than or equal to -2.5 at the femoral neck or spine after appropriate evaluation to exclude secondary causes. -Low bone mass at the hip or spine and a 10-year fracture probability by FRAX of greater than or equal to 3% for hip fracture or greater than or equal to 20% for major osteoporotic fracture based on the [place] adapted WHO algorithm. 4. Other Recommendations: All treatment decisions require clinical judgment and consideration of individual patient factors, including patient preferences, comorbidities, previous drug use, risk factors not captured in the FRAX model (e.g. frailty, falls, vitamin D deficiency, increased bone turnover, interval significant decline in bone density) and possible under or overestimation of fracture risk by FRAX. Additional medical evaluation for secondary cause of low bone mineral density may be appropriate. FUTURE SCAN RECOMMENDATION: People with diagnosed cases of osteoporosis or at high risk for fracture should have regular bone mineral density tests. For patients eligible for Medicare, routine testing is allowed once every 2 years. The testing frequency can be increased to one year for patients who have rapidly progressing disease, those who are receiving or discontinuing medical therapy to restore bone mass, or have additional risk factors.
== END 2022-07-25 12:50 | disposition home or self-care (01) ==
LOC: HO.MAMMO 12:49
PROVIDERS: Visit Provider Student in an Organized Health Care Education/Training Program
DX: Z13.820 Encounter for screening for osteoporosis (principal); M81.8 Other osteoporosis without current pathological fracture
CPT/HCPCS: 77080

== ENCOUNTER → 2022-08-11 09:14 | Outpatient (BNVA) | payer MEDICAID, SELFPAY | PROVIDERS: PCP Student in an Organized Health Care Education/Training Program; Visit Provider Physician Assistant | DX: S22.000A Wedge compression fracture of unspecified thoracic vertebra, initial encounter for closed fracture (principal) | CPT/HCPCS: 99202 ==

== ENCOUNTER → 2022-08-28 08:53 | Outpatient (BNVA) | payer MEDICAID, SELFPAY | PROVIDERS: PCP Student in an Organized Health Care Education/Training Program; Visit Provider Hospitalist | DX: J44.1 Chronic obstructive pulmonary disease with (acute) exacerbation (principal); F17.210 Nicotine dependence, cigarettes, uncomplicated | CPT/HCPCS: 99212 ==

== ENCOUNTER → 2022-09-04 08:01 | Outpatient (BNVA) | payer MEDICAID, SELFPAY | PROVIDERS: PCP Student in an Organized Health Care Education/Training Program; Visit Provider Internal Medicine | DX: M80.88XA Other osteoporosis with current pathological fracture, vertebra(e), initial encounter for fracture (principal); S22.000A Wedge compression fracture of unspecified thoracic vertebra, initial encounter for closed fracture; F17.210 Nicotine dependence, cigarettes, uncomplicated; Z71.6 Tobacco abuse counseling | CPT/HCPCS: 99202 ==

== ENCOUNTER 2022-09-04 10:14 | Outpatient (REF) | payer MEDICAID, SELFPAY ==
--- NOTE | ~2022-09-04 | MR_ITS ---
MR THORACIC SPINE WITHOUT CONTRAST CLINICAL INFORMATION: Wedge compression fracture. COMPARISON: Chest CT 07/12/2022. TECHNIQUE: MRI of the thoracic spine was obtained using routine sequences without contrast. FINDINGS: There is an acute edematous severe compression fracture at T7 exhibiting up to 80% vertebral body height loss and no significant retropulsion. There are T2 signal changes within the T6 spinous process tip that may be degenerative, inflammatory, or posttraumatic and can be followed with CT. There is a chronic compression fracture at T5. Chronic endplate Schmorl's nodes at the T4, T6, T8, T9, T10, T11, and T12 levels. Multilevel endplate osteophytes. Midthoracic kyphosis. Conus terminates at the L1 level. No significant extraspinal soft tissue findings. Bone marrow edema within the T5-T6 facets bilaterally and the right T7-T8 facets is most likely degenerative/inflammatory. Disc osteophyte and facet arthropathy result in moderate to severe bilateral foraminal stenosis at T5-T6, severe left-sided foraminal stenosis at T6-T7, severe bilateral foraminal stenosis at T7-T8, and severe bilateral foraminal stenosis at T9-T10. Small disc protrusions mildly narrow the central canal at and below the T4-T5 level. There is no severe central canal stenosis within the thoracic spine. MR/MR thoracic spine wo con IMPRESSION: - There is an acute edematous severe compression fracture at T7 exhibiting up to 80% vertebral body height loss and no significant retropulsion. There are T2 signal changes within the T6 spinous process tip that may be degenerative, inflammatory, or posttraumatic and that can be followed with CT. - There is a chronic compression fracture at T5. - Disc osteophyte and facet arthropathy result in moderate to severe bilateral foraminal stenosis at T5-T6, severe left-sided foraminal stenosis at T6-T7, severe bilateral foraminal stenosis at T7-T8, and severe bilateral foraminal stenosis at T9-T10. Small disc protrusions mildly narrow the central canal at and below the T4-T5 level. There is no severe central canal stenosis within the thoracic spine.
== END 2022-09-04 10:15 | disposition home or self-care (01) ==
LOC: HO.MRI 10:14
PROVIDERS: PCP Internal Medicine; Visit Provider Internal Medicine
DX: S22.000A Wedge compression fracture of unspecified thoracic vertebra, initial encounter for closed fracture (principal)
CPT/HCPCS: 72146

== ENCOUNTER 2022-09-06 11:38 | Day surgery (SDC) | payer MEDICAID, SELFPAY ==
[2022-09-06] VITALS (9 sets, daily range): BP systolic 126–152; BP diastolic 77–97; PULSE 72–92; RESP 12–18; TEMP 36.1–36.8; O2SAT 88–96; BMI 26.3
--- NOTE | ~2022-09-06 | FL_ITS ---
EXAMINATION: XR FLUOROSCOPY WITH IMAGES CLINICAL INFORMATION: Kyphoplasty. COMPARISON: None available. TECHNIQUE: Fluoroscopy Supervised By: Dr. Guy. Fluoroscopy Time: 3.2. Cumulative Dose: 221 mGy. DAP: 15.9 Gycm2. Images: 2. FINDINGS: Intraoperative fluoroscopy guidance provided for T7 kyphoplasty. AP and lateral views of the thoracic spine demonstrate cannulas in the bilateral pedicles and cement in the vertebral body. FL/FL guidance in OR IMPRESSION: Intraoperative fluoroscopy guidance for kyphoplasty.
--- NOTE | 2022-09-06 11:46 | MHC.SHP ---
Pre-Procedural Eval Section A Date of Service: 09/06/22 The patient is an INPATIENT: No Changes since office visit: Yes Patient answered all questions The History & Physical has been completed within 30 days and I have reviewed it.: No Section B Chief Complaint: Other osteoporosis with current pathological Details of Present Illness: as above Relevant Family History (Specify if Yes): No Relevant Social History: Other (specify) Present Medications: None Medical History: Significant History (COPD, Osteoporosis) History of Previous Operations: No relevant previous surgery Allergies: Allergies Allergy/AdvReac Type Severity Reaction Status Date / Time ibuprofen [From Motrin] Allergy Rash Verified 09/04/22 08:10 Review of Systems Sugical H&P ROS: Negative: Constitution, Cardiovascular, Neurological, Psychiatric, Hem-Onc, Allergic/Immunologic, Gastrointestinal, Genitourinary, Integumentary, Endocrine and Eyes/Ears/Nose/Throat and Yes, Specify: Respiratory (COPD) and Musculoskeletal (Osteoporosis) Exam Surgical H&P Exam: Normal: HEENT, Normal: Heart, Normal: Lungs, Normal: Extremities, Normal: Abdomen, Normal: Skin and Normal: Neurological Plan Diagnosis/Plan: Change I have reviewed the history and physical and performed a pertinent physical examination on my patient. T5 vertebral fracture is old however the patient has fresh T7 compression fracture without retropulsion on which we will perform kyphoplasty today. Time Spent With Patient Time: Total time managing care of this patient today ____ minutes.
--- NOTE | 2022-09-06 11:50 | W.PM.OPN ---
Operative Note Operative Note Date of Service: 09/06/22 Narrative: Kyphoplasty T7 The patient was brought to the operating room andPositioned prone on operating table. [place] [employer] monitors were applied general anesthesia was induced and LMA was inserted. Time-out was performed delineating name and date of of the patient, nature of the procedure, site and side of the procedure, risk of fire need of antibiotics, patient received 2 g of cefazolin preoperatively approximately 20 minutes before onset of the procedure. The entire back was prepped and draped. The image intensifier (C-arm) was brought into position and the T7 pedicles were identified and marked with a skin marker. In view of the collapse of T7, a retropedicular approach to the vertebral body was appropriate. An 22-gauge Spinal needle was advanced through the pedicle to the junction of the pedicle and vertebral body on the right side. Positioning was confirmed on the AP and lateral plane. injection of the local anesthetic mixture of lidocaine 2% and a ropivacaine 0.5% was performed 1-2 cc at the area. The needle was removed and the osteointroducer was placed to the same position, under anterior posterior and lateral views it was advanced and advanced through the pedicle to the vertebral body. Once I was at the junction of the pedicle and the vertebral body, a lateral image was taken to ensure that the cannula was positioned approximately 1cm past the vertebral body wall. Through the cannula, a drill was advanced into the vertebral body under fluoroscopic guidance toward the anterior cortex, creating a channel. The anterior cortex was probed with the guide pin to ensure no perforations in the anterior cortex. after that the same procedure was performed on the left side, care was taken to direct both of the heels to the center of the vertebral body. The advancement of the introducer was performed by Dr. Hartley on the right and by on the left. After completing the entry into the vertebral body ilaterally, a 15 mm inflatable balloons were inserted through the cannula and advanced under fluoroscopic guidance into the vertebral body near the anterior cortex. The radiopaque marker bands on the baloons were identified using AP and lateral images. Once baloons were in position, they were inflated to 0.5 cc and 50 psi. Inftation of the baloon on the left side was performed by Dr. Hartley and on the left side it was done by me. Expansion of the baloons was done sequentially in increments of 0.25 to 0.5 cc of contrast, with careful attention being paid to the inflation pressures and balloon position. The inflation was monitored with AP and lateral imaging. The final balloon volume was 3.5 cc on the right side and 3 cc on the left. There was no breach of the lateral wall or anterior cortex of the vertebral body. Retropulsion also was not noted . Direct reduction of the fracture was achieved, end plate movement was noted and approximately 4 mm of height cheondoism was achieved. Under fluoroscopic imaging, and the use of the bone void fillers, internal fixation was achieved through a low-pressure injection of KYPHON HV-R bone cement (methyl methacrylate). The cavity was filled with a total volume of 3.5 cc on the right side and 3 cc on the left side. Once the bone cement had hardened, the cannulas were then removed. two silk sutures were Applied to close the entrance to the skin. Sterile dressing with bacitracin was applied to the level of the skin. Patient tolerated procedure well he was awaken extubated and transferred stable to PACU.
--- NOTE | 2022-09-06 11:53 | PM.OP ---
Brief Operative Note Date of Service: 09/06/22 Pre-op diagnosis: Compression fracture of T7 vertebra Post-op diagnosis: same Procedure: T7 kyphoplasty Surgeon: Francisco Guy MD Anesthesia: GLMA Was an Injection Molding Supervisor used for this Procedure?: No Estimated blood loss (mL): 9 Pathology: none sent Condition: stable Disposition: PACU
[2022-09-06 12:02] LABS: Glucose, Whole Blood 125 mg/dL (60-115)
[2022-09-06] MEDS: Lactated Ringers 1,000 ML 100 ML IVCONT (12:11)
--- NOTE | 2022-09-06 12:22 | P.CONAN_ITS ---
HPI - Anesthesia Eval Consult details Narrative: for kyphoplasty FORMERLY [facility], 1928–1983 Active Problems Active Problems: All Active Problems (Updated 08/11/22 @ 09:57 by KAITY Meeks) Compression fracture of body of thoracic vertebra (Acute) Viral syndrome (Acute) Nicotine dependence, cigarettes, uncomplicated (Acute) Coronary artery calcification seen on CT scan (Acute) Precordial chest pain (Acute) Asthma-COPD overlap syndrome (Acute) Asthma (Acute) Pulmonary nodules (Acute) Personal history of nicotine dependence (Acute) HTN (hypertension) (Acute) Hyperlipidemia (Acute) Leukocytosis (Acute) Osteoporosis (Acute ~2001) GERD (gastroesophageal reflux disease) (Acute) Irritable bowel syndrome (Acute) Chronic idiopathic constipation (Acute) Tubular adenoma of colon (Acute ~2019) Abdominal bloating (Acute) Chronic abdominal pain (Acute) Lump in the abdomen (Acute) Balanitis (Acute) Penile discharge (Acute) Pain with urination (Acute) Abscess (Acute) Cellulitis and abscess of upper extremity (Acute) Olecranon bursitis of right elbow (Acute) Past Medical History Medical History Anxiety and depression Arthritis Asthma Asthma-COPD overlap syndrome Back pain Chronic abdominal pain COPD (chronic obstructive pulmonary disease) GERD (gastroesophageal reflux disease) History of COVID-19 History of kidney stones HTN (hypertension) Hyperlipidemia Irritable bowel syndrome Leukocytosis Osteoporosis (~2001) Personal history of nicotine dependence Tubular adenoma of colon (~2019) Viral syndrome Family History Family History Father No problems noted. Mother No problems noted. Son No problems noted. Daughter No problems noted. Family history of problems with anesthesia: No Surgical History Surgical History History of bilateral hip replacements History of colonoscopy (~2005) History of colonoscopy with polypectomy (~2020) History of hip surgery (~2001) History of hydrocelectomy History of surgery on right wrist (~2014) S/P extracorporeal shock wave therapy (~2013) Shoulder symptoms with history of shoulder arthroplasty History of Problems with Anesthesia: No Social History Social History Alcohol intake: unknown Patient Tobacco Use Status: Current everyday Tobacco user Tobacco use type: Cigarette Cigarette Packs Per Day: 0.5 Cigarettes Per Day: 5 Years Smoked: (onset 14yo, 1/2-3/4ppd x 37yrs, 23pyh) Second Hand Smoke Exposure: No Use of substances other than those prescribed or required for medical reasons: No Are you DNR?: No Advance Directives: No Advance Directives Information Provided: Yes Advance Directives Date on File: 05/30/21 service: No Current occupational status: disabled Meds Allergies Allergy/AdvReac Type Severity Reaction Status Date / Time ibuprofen [From Motrin] Allergy Rash Verified 09/06/22 12:18 Active Medications: Current Medications Cefazolin Sodium/Dextrose (Ancef) 2 gm in 50 mls @ 100 mls/hr IV PREOP ONE Stop: 09/06/22 12:24 Lactated Ringer's (Lr) 1,000 mls @ 100 mls/hr IVCONT .Q10H RAHEL Last Admin: 09/06/22 12:11 Dose: 100 mls/hr Home Medications Medication Instructions Recorded Confirmed Last Taken Type acetaminophen 650 mg 650 mg PO Q8H PRN Pain 05/28/21 09/04/22 Unknown History tablet,extended release amlodipine 5 mg tablet 5 mg PO DAILY 05/28/21 09/04/22 Unknown History atorvastatin 10 mg tablet 10 mg PO BEDTIME 05/28/21 09/04/22 Unknown History baclofen 20 mg tablet 20 mg PO TID PRN muscle spasm 05/28/21 09/04/22 Unknown History calcium carbonate 500 mg-vitamin 1 tab PO BID 05/28/21 09/04/22 Unknown History D3 5 mcg (200 unit) tablet (Oyster Shell Calcium-Vitamin D3) cholecalciferol (vitamin D3) 50 2,000 unit PO DAILY 05/28/21 09/04/22 Unknown History mcg (2,000 unit) tablet lidocaine 5 % topical patch 1 patch topical DAILY 05/28/21 09/04/22 Unknown History (Lidoderm) metformin 500 mg tablet 500 mg PO BID 05/28/21 09/04/22 Unknown History metoprolol succinate 25 mg 25 mg PO DAILY 05/28/21 09/04/22 09/06/22 07:00 History tablet,extended release 24 hr tramadol 50 mg tablet 50 mg PO Q6H PRN severe pain 05/28/21 09/04/22 Unknown History clotrimazole 1 % topical cream appl topical 07/26/21 09/04/22 Unknown History nebulizers 06/14/22 09/04/22 Unknown History prednisone 10 mg tablet 10 mg PO DAILY 09/04/22 Unknown History Exam Exam Date and Time: September 06, 2022 1222 Height,Weight and Vital Signs: Height 5 ft 6 in Weight 73.936 kg Last Vital Signs Temp 97.0 F 09/06/22 11:56 Pulse 92 09/06/22 11:56 Resp 18 09/06/22 11:56 BP 126/82 09/06/22 11:56 Pulse Ox 95 09/06/22 11:56 O2 Del Method Room Air 09/06/22 11:56 Pertinent Lab Results Pertinent Lab Results: Laboratory Tests 09/06/22 11:59 POC Glucose 125 H Airway Mallampati Class: I TM Dist: >3cm Neck ROM: Full Loose/Missing/Broken Teeth: Yes and Lower (B tooth in back) Heart: ok Lungs: severe COPD; Sat 95% room air Assessment and Plan Final Anesthetic Review Family History of Problems with Anesthesia: No History of Problems with Anesthesia: No NPO: Yes ASA Class: IV Final Preanesthetic Review: No Changes in Pt Med Stat, Meds/Allgs Chart Reviewed, Consent Obtained/Reviewed and Anes Risks/Benef Reviewed Patient Risk: High Procedure Risk: Intermediate Anesthetic Plan Anesthetic Plan: GA and Agree w/ Assess. and Plan Disposition: Standard PACU
[2022-09-06] MEDS: Acetaminophen 325 MG TABLET 650 MG PO (16:06)
== END 2022-09-06 16:51 | disposition home or self-care (01) ==
PROVIDERS: PCP Internal Medicine; Visit Provider Anesthesiology
PROC: (CPT 22513; principal; 2022-09-06 11:40)
DX: M80.88XA Other osteoporosis with current pathological fracture, vertebra(e), initial encounter for fracture (principal); S22.060A Wedge compression fracture of T7-T8 vertebra, initial encounter for closed fracture; S22.050A Wedge compression fracture of T5-T6 vertebra, initial encounter for closed fracture; T38.0X5A Adverse effect of glucocorticoids and synthetic analogues, initial encounter; Z79.52 Long term (current) use of systemic steroids; J44.9 Chronic obstructive pulmonary disease, unspecified; Z87.01 Personal history of pneumonia (recurrent); I10 Essential (primary) hypertension; E78.00 Pure hypercholesterolemia, unspecified; K21.9 Gastro-esophageal reflux disease without esophagitis; E11.9 Type 2 diabetes mellitus without complications; F41.8 Other specified anxiety disorders; D72.829 Elevated white blood cell count, unspecified; Z79.51 Long term (current) use of inhaled steroids; Z79.84 Long term (current) use of oral hypoglycemic drugs; Z79.899 Other long term (current) drug therapy; Z88.8 Allergy status to other drugs, medicaments and biological substances; F17.210 Nicotine dependence, cigarettes, uncomplicated; Z86.16 Personal history of COVID-19; Z96.643 Presence of artificial hip joint, bilateral
CPT/HCPCS: 22513; 82947; C1713; J0690; J2250; J2795; J3010; Q9967

== ENCOUNTER → 2022-09-15 08:04 | Outpatient (BNVA) | payer MEDICAID, SELFPAY | PROVIDERS: PCP Internal Medicine; Visit Provider Internal Medicine | DX: M79.18 Myalgia, other site (principal); S16.1XXA Strain of muscle, fascia and tendon at neck level, initial encounter; M47.812 Spondylosis without myelopathy or radiculopathy, cervical region; S22.000A Wedge compression fracture of unspecified thoracic vertebra, initial encounter for closed fracture | CPT/HCPCS: 20553; 99212; J2795 ==

== ENCOUNTER 2022-10-13 09:40 | Outpatient (REF) | payer MEDICAID, SELFPAY ==
--- NOTE | ~2022-10-13 | US_ITS ---
EXAMINATION: US ABDOMEN COMPLETE CLINICAL INFORMATION: Abdominal pain. COMPARISON: CT abdomen and pelvis 07/12/2022. Ultrasound abdomen complete 03/25/2020. Ultrasound abdomen limited 04/11/2019. TECHNIQUE: Real-time imaging of the abdominal viscera. FINDINGS: PANCREAS: Normal. ABDOMINAL AORTA: Abdominal aorta is atherosclerotic without aneurysm. INFERIOR VENA CAVA: Visualized portions are normal. LIVER: The liver is normal in size. The liver contour is normal. There is diffuse increased liver parenchymal echogenicity, consistent with hepatic steatosis. No focal hepatic lesion. There is no intrahepatic biliary duct dilatation seen. GALLBLADDER: Cholesterol crystal artifact in the gallbladder wall consistent with adenomyomatosis. No cholelithiasis or gallbladder wall mass. COMMON BILE DUCT: Normal in caliber measuring 0.5 cm in diameter. RIGHT KIDNEY: Normal. No hydronephrosis. No renal calculi or focal parenchymal lesions. The kidney measures 12.6 cm in maximum dimension. LEFT KIDNEY: 0.8 cm simple cyst in the mid kidney. No follow-up imaging is recommended. No hydronephrosis or renal calculi. The kidney measures 12.8 cm in maximum dimension. SPLEEN: Normal. The spleen measures 10.3 cm in maximum dimension. FREE FLUID: None. US/US abdomen complete IMPRESSION: No explanation for abdominal pain. Hepatic steatosis.
== END 2022-10-13 09:41 | disposition home or self-care (01) ==
LOC: HO.US 09:40
PROVIDERS: PCP Internal Medicine; Visit Provider Student in an Organized Health Care Education/Training Program
DX: R10.9 Unspecified abdominal pain (principal)
CPT/HCPCS: 76700

== ENCOUNTER 2022-10-30 14:26 | Outpatient (AMB) | payer MEDICAID, SELFPAY ==
--- NOTE | 2022-10-30 14:35 | MHC.OFFVIS ---
Intake Vital Signs 10/30/22 14:37 Height 5 ft 7 in Weight 163 lb 12.855 oz BMI 25.7 BP 142/70 H Blood Pressure Location Rt brachial Position Sitting Pulse 89 Pulse Source Pulse Oximeter Pulse Oximetry (%) 95 Oxygen Delivery Method Room Air Intake Visit Reasons: Shortness of Breath Hat Checker Required: No Allergies ibuprofen [From Motrin] Allergy (Verified 10/30/22 14:40) Rash HPI HPI Comments History of Present Illness Details The patient is a 52-year-old gentleman with known tobacco dependency since asthma COPD overlap syndrome. The patient continues to have significant shortness of breath and wheezing. Moderate severity. But, overall better. he has been on chronic steroids. He has not been able to go below 20 mg. he does have productive sputum, which is whitish in color. Associated with shortness of breath. He has gained some weight due to the prednisone. At this point the patient will be a good candidate for Daliresp. We also talked about smoking cessation and the importance to quit. He has been on Chantix and appears to be working. he is going to continue on Chantix at this time. 08/08/2021 the patient is here for pulmonary follow-up visit. Overall he is trying to stay healthy. He has been trying to cut down the smoking. Although has been very hard for him to quit. He has been losing weight which is reassuring. He continues uses respiratory therapy. Unfortunately the inhalers are not sufficient and he is still taking 10 mg prednisone the morning and sometimes he needs 10 mg at nighttime otherwise he wakes up short of breath with chest tightness. He has already demonstrating some evidence of lower extremity edema explained to him that using the prednisone will help with his breathing but worsened a lot although conditions. Therefore we need to work on getting off these prednisone as much as possible. The patient does have an asthma phenotype. He had asthma as a child and also had an elevated IgE level and significant allergies including mold allergies. The patient is IgE was around 700. The patient will be a good candidate for Xolair at this time. Hopefully with starting biologic therapy will get him off the prednisone and ultimately decrease his adverse effects and complications from chronic prednisone use. 11/14/2021 the patient is here for a pulmonary follow-up visit. The patient has been feeling a little better. He is trying to cut down on the smoking. He started taking some old Chantix that he had because he would like to try to quit. He still struggles with about half a pack of cigarettes. The patient has been using his respiratory therapy. He tried Trelegy but was not effective in therefore he went back on Symbicort and Combivent. Unfortunately he still struggling on time mg of prednisone. Sometimes he takes 20. He now developed diabetes and he understands that this is due to the prednisone. He needs to cut down. the patient may be a good candidate for Daliresp. However, does have significant side effects. The patient is already developing some depression and also has significant GI symptoms. Therefore we will reassess during the next visit. He is scheduled to have a lung cancer screening program next week. Will follow up after those results. We did go over his inhalers. He needs to make sure to use Symbicort twice a day. This is initial with adherence. I believe he does understand now that he needs to use it as prescribed. 02/20/2022 the patient is here for a pulmonary follow-up visit. He continues to require the prednisone. He continues to have shortness of breath and chest tightness. But overall he is doing a little better. He is motivated to trying to quit smoking. He did well with Chantix in the past but then he was concerned with a recall and potentially causing cancer. I reassured him that this is not the case. In addition to that the smoking is definitely worse than the medication itself. The patient is willing to try. I will send to the pharmacy. He understands that he is going to be monitoring closely for any depression. If the patient develops any depression he is to stop the medication immediately and call. He tolerated the past had on for see that he will run into any difficulties. Patient also continues on the prednisone. He also at this ultimately is initial. He does have significant allergies and significant eosinophilia. He did have also blood work done demonstrating significant allergens an elevated IgE level. The patient would benefit from biologic therapy but also would benefit from stopping smoking. We will monitor him closely to see how he response to therapy. We did try to start him on Xolair during the last visit but the patient really is not compliant. therefore hold off on further biologic evaluation. He did undergo a CT scan of the chest as part of the lung cancer screening program. He does have evidence of bronchitis with a rads score of 2. 06/14/2022 the patient is here for sick visit. It started developing worsening cough and shortness of breath as well as chest discomfort. He was evaluated initially here at [place] in that he went to [facility] where he was admitted for 3 days. It appears that his respiratory viral panel was positive likely for RSV although we do not have the confirmations at this time. He was given prednisone antibiotics. He was also given pain medications. The patient has not been any better. Every time he coughs it hurts him. In the office we did do 2 treatments of nebulized therapy that did help. He did expectorate some phlegm. The patient has significant wheezing. After the treatments he did feel better he did receive 125 mg Solu-Medrol. In addition to that will restart him on the prednisone and antibiotics. Also provide him with cough medication. If his symptoms worsen he may need to go back to the ER if he fails outpatient therapy. Unfortunately, he continues to smoke cigarettes. Will try to get the reports from [facility] to get more details of his hospitalization. 08/28/2022 the patient is here for pulmonary follow-up visit. Overall he is doing a little better from a respiratory status. However, patient developed some compression fractures. He has significant osteoporosis due to his chronic prednisone use. We tried decreasing his prednisone dose however, the patient has frequent exacerbations. He is also on chronic prednisone likely prednisone dependent. We did try Xolair but the patient did not want to take the sections. We can have him start Daliresp to see if this helps decrease the need for prednisone. However, really what is going to be most important for him to quit smoking and the patient is not willing to quit altogether. He did cut down which is good. I did provide him with 1 mg prednisone tablets. He can decrease by 1 mg every 1 week to try to come down to at least 10 mg daily. At that point will try to get him a little lower if possible although likely will require chronic dose. He is going to continue his respiratory therapy. Will try to simplify his regimen by placing him on Trelegy. He needs to be careful not to over medicate with inhalers. a [id number] the patient is here for pulmonary follow-up visit. He is complaining of significant chest congestion. Difficult to expectorate. Moderate severity. Unfortunately when he tries to cough he started developing significant abdominal discomfort. Then, this results in significant discomfort and pain and sometimes he can even sleep. Sometimes he has to cry. The patient is uncomfortable overall. Unfortunately he continues to smoke cigarettes. He has been trying to cut down although is still very difficult for him. Otherwise been using nebulized therapy. We did review his imaging studies. His last CT scan was back in March demonstrating evidence of bronchitis and some bronchiectatic changes at the bases. All some some mosaic pattern. We did talk about considering bronchoscopy to further address his underlying chronic bronchitis and assess for any smoldering infections. In addition to this the patient does complaint of significant abdominal distention. He does have diabetes and is at risk for gastroparesis. Therefore we will increase his pulmonary toilet he agent to 500 mg 3 times a week. [facility] Medical History Anxiety and depression Arthritis Asthma Asthma-COPD overlap syndrome Back pain Chronic abdominal pain COPD (chronic obstructive pulmonary disease) GERD (gastroesophageal reflux disease) History of COVID-19 History of kidney stones HTN (hypertension) Hyperlipidemia Irritable bowel syndrome Leukocytosis Osteoporosis (~2001) Personal history of nicotine dependence Tubular adenoma of colon (~2019) Viral syndrome Surgical History History of bilateral hip replacements History of colonoscopy (~2005) History of colonoscopy with polypectomy (~2020) History of hip surgery (~2001) History of hydrocelectomy History of surgery on right wrist (~2014) S/P extracorporeal shock wave therapy (~2013) Shoulder symptoms with history of shoulder arthroplasty Family History Father No problems noted. Mother No problems noted. Son No problems noted. Daughter No problems noted. Social History Alcohol intake: unknown Patient Tobacco Use Status: Current everyday Tobacco user Tobacco use type: Cigarette Cigarette Packs Per Day: 0.5 Cigarettes Per Day: 5 Years Smoked: (onset 14yo, 1/2-3/4ppd x 37yrs, 23pyh) Second Hand Smoke Exposure: No Advance Directives Date on File: 05/30/21 service: No Current occupational status: disabled Review of Systems Const Denies chills, Denies difficulty sleeping, Reports fatigue, Denies fever(s), Reports headache(s) and Denies night sweats ENT Denies change in voice, Reports headache(s), Denies lip swelling, Denies mouth pain, Reports nasal congestion, Reports nasal discharge and Denies tongue swelling Card Reports leg edema and Reports dyspnea on exertion Resp Reports cough, Denies hemoptysis, Reports dyspnea on exertion and Reports wheezing GI Reports abdominal pain and Reports bloating Musc Reports as per HPI and Reports back pain Neuro Denies Neuro-related abnormal movements and Reports headache(s) Psych Denies no additional complaints Endo Reports fatigue Jamie/Lymph Denies easy bleeding and Denies lymphadenopathy Aller/Immun Denies lip swelling, Denies tongue swelling and Reports wheezing Physical Exam Vital Signs: Last Vital Signs Pulse 89 10/30/22 14:37 BP 142/70 H 10/30/22 14:37 Pulse Ox 95 10/30/22 14:37 Oxygen Delivery Method Room Air 10/30/22 14:37 BMI result Body Mass Index 25.7 Const General: alert and in distress mild and respiratory Neck Neck: Yes normal visual inspection, Yes full ROM and Yes no lymphadenopathy Chest Chest palpation & inspection: normal inspection of the chest Resp Auscultation: crackles, wheezes and diminished lung sounds Cardio Rate: regular rate Rhythm: regular rhythm Heart sounds: S1 normal heart sound present and S2 normal heart sound present GI Inspection: Yes distended Palpation (GI): nontender Skin General skin exam: rashes and/or lesions noted Assessment & Plan Assessment & Plan (1) COPD (chronic obstructive pulmonary disease): Code(s): J44.9 - Chronic obstructive pulmonary disease, unspecified Qualifiers: COPD type: COPD with acute exacerbation Qualified Code(s): J44.1 - Chronic obstructive pulmonary disease with (acute) exacerbation (2) Tobacco dependence: Code(s): F17.200 - Nicotine dependence, unspecified, uncomplicated Plan stopped Daliresp cough suppressant Smoking cessation: Will retry Chantix stop singulair continue Accolate 20mg BID stop Incruse start Trelegy continue Combivent LDCT program plan for bronchosdpy short-acting beta agonist as needed slow taper to prednisone 10mg baseline follow-up 2-3 months Medications: New azithromycin Sunday, Sunday, Sunday 500 mg PO 3XW 28 days 12 tabs 6RF ewvtpwvuchm-pfgumtjlh-efrugffn 200-62.5-25 mcg (Trelegy Ellipta) 1 inh inhalation DAILY 30 days 60 ea 12RF codeine-guaifenesin 10-100 mg/5 mL 10 mL PO Q6H 10 days PRN 300 mL 0RF cough Refilled zafirlukast must be taken on empty stomach, at least 1 hr before or 2 hrs after a meal/food 20 mg PO BID 30 days 60 tabs 11RF Quality Reporting (2019) Adult ([facility] ) Smoking risk assessment performed?: Yes Patient Tobacco Use Status: Current everyday Tobacco user Coding Level of Care Code Est Pt Level 4 (75898) Diagnoses COPD (chronic obstructive pulmonary disease) J44.1 COPD type: COPD with acute exacerbation Tobacco dependence F17.200 Time Spent (min) 18
[2022-10-30 14:37] VITALS: BP 142/70; PULSE 89; O2SAT 95; BMI 25.7
== END 2022-10-30 14:52 | disposition home or self-care (01) ==
PROVIDERS: PCP Student in an Organized Health Care Education/Training Program; Visit Provider Hospitalist
DX: J44.1 Chronic obstructive pulmonary disease with (acute) exacerbation (principal); F17.200 Nicotine dependence, unspecified, uncomplicated
CPT/HCPCS: 99214

== ENCOUNTER → 2022-10-30 14:26 | Outpatient (BNVA) | payer MEDICAID, SELFPAY | PROVIDERS: PCP Student in an Organized Health Care Education/Training Program; Visit Provider Hospitalist | DX: J44.1 Chronic obstructive pulmonary disease with (acute) exacerbation (principal); R06.02 Shortness of breath; R63.5 Abnormal weight gain; F17.210 Nicotine dependence, cigarettes, uncomplicated; Z79.52 Long term (current) use of systemic steroids | CPT/HCPCS: 99212 ==

== ENCOUNTER → 2022-10-31 09:43 | Day surgery (SDC) | payer MEDICAID, SELFPAY ==
--- NOTE | 2022-10-30 10:25 | HO.ANESPROP2 ---
Documented by User: Ronit Oden NP 10/30/22 10:28 HPI - Anesthesia Eval Consult details Narrative: 52yo M for Colonoscopy PMFSH Active Problems Active Problems: All Active Problems (Updated 09/15/22 @ 08:31 by Dayday Hartley MD) Cervical myofascial strain (Acute) Cervical spondylosis (Acute) Compression fracture of body of thoracic vertebra (Acute) Viral syndrome (Acute) Nicotine dependence, cigarettes, uncomplicated (Acute) Coronary artery calcification seen on CT scan (Acute) Precordial chest pain (Acute) Asthma-COPD overlap syndrome (Acute) Asthma (Acute) Pulmonary nodules (Acute) Personal history of nicotine dependence (Acute) HTN (hypertension) (Acute) Hyperlipidemia (Acute) Leukocytosis (Acute) Osteoporosis (Acute ~2001) GERD (gastroesophageal reflux disease) (Acute) Irritable bowel syndrome (Acute) Chronic idiopathic constipation (Acute) Tubular adenoma of colon (Acute ~2019) Abdominal bloating (Acute) Chronic abdominal pain (Acute) Lump in the abdomen (Acute) Balanitis (Acute) Penile discharge (Acute) Pain with urination (Acute) Abscess (Acute) Cellulitis and abscess of upper extremity (Acute) Olecranon bursitis of right elbow (Acute) Past Medical History Medical History Anxiety and depression Arthritis Asthma Asthma-COPD overlap syndrome Back pain Chronic abdominal pain COPD (chronic obstructive pulmonary disease) GERD (gastroesophageal reflux disease) History of COVID-19 History of kidney stones HTN (hypertension) Hyperlipidemia Irritable bowel syndrome Leukocytosis Osteoporosis (~2001) Personal history of nicotine dependence Tubular adenoma of colon (~2019) Viral syndrome Family History Family History Father No problems noted. Mother No problems noted. Son No problems noted. Daughter No problems noted. Family history of problems with anesthesia: No Surgical History Surgical History History of bilateral hip replacements History of colonoscopy (~2005) History of colonoscopy with polypectomy (~2020) History of hip surgery (~2001) History of hydrocelectomy History of surgery on right wrist (~2014) S/P extracorporeal shock wave therapy (~2013) Shoulder symptoms with history of shoulder arthroplasty History of Problems with Anesthesia: No Social History Social History Alcohol intake: unknown Patient Tobacco Use Status: Current everyday Tobacco user Tobacco use type: Cigarette Cigarette Packs Per Day: 0.5 Cigarettes Per Day: 5 Years Smoked: (onset 14yo, 1/2-3/4ppd x 37yrs, 23pyh) Second Hand Smoke Exposure: No Use of substances other than those prescribed or required for medical reasons: No Are you DNR?: No Advance Directives: No Advance Directives Information Provided: Yes Advance Directives Date on File: 05/30/21 service: No Current occupational status: disabled Meds Allergies Allergy/AdvReac Type Severity Reaction Status Date / Time ibuprofen [From Motrin] Allergy Rash Verified 10/30/22 14:40 Home Medications Medication Instructions Recorded Confirmed Last Taken Type acetaminophen 650 mg 650 mg PO Q8H PRN Pain 05/28/21 09/15/22 Unknown History tablet,extended release amlodipine 5 mg tablet 5 mg PO DAILY 05/28/21 09/15/22 Unknown History atorvastatin 10 mg tablet 10 mg PO BEDTIME 05/28/21 09/15/22 Unknown History baclofen 20 mg tablet 20 mg PO TID PRN muscle spasm 05/28/21 09/15/22 Unknown History calcium carbonate 500 mg-vitamin 1 tab PO BID 05/28/21 09/15/22 Unknown History D3 5 mcg (200 unit) tablet (Oyster Shell Calcium-Vitamin D3) cholecalciferol (vitamin D3) 50 2,000 unit PO DAILY 05/28/21 09/15/22 Unknown History mcg (2,000 unit) tablet metformin 500 mg tablet 500 mg PO BID 05/28/21 09/15/22 Unknown History metoprolol succinate 25 mg 25 mg PO DAILY 05/28/21 09/15/22 09/06/22 07:00 History tablet,extended release 24 hr clotrimazole 1 % topical cream appl topical 07/26/21 09/15/22 Unknown History nebulizers 06/14/22 09/04/22 Unknown History prednisone 10 mg tablet 10 mg PO DAILY 09/04/22 09/15/22 Unknown History Exam Exam Date and Time: October 30, 2022 1025 Pertinent Lab Results Pertinent Lab Results: Laboratory Tests 07/12/22 07/12/22 02:54 02:54 WBC 21.5 H Hgb 13.6 L Hct 39.9 L Plt Count 417 H Sodium 134 L Potassium 4.6 Chloride 97 Carbon Dioxide 26 BUN 15 Creatinine 1.09 Narrative Narrative: EKG 06/2022 Vent. Rate : 096 BPM ? ? Atrial Rate : 096 BPM ?? P-R Int : 142 ms? QRS Dur : 070 ms ? ? QT Int : 334 ms ? ? ? P-R-T Axes : 051 007 044 degrees ?? QTc Int : 421 ms ? Normal sinus rhythm Normal ECG When compared with ECG of 27-MAY-2022 17:49, No significant change was found ECHO 04/2022 Conclusions: - 1. Normal LV systolic function with impaired relaxation filling pattern? 2. Mitral? annular calcification with normal cardiac valves with Doppler? 3. Normal RV systolic pressure ? 4. No gross pericardial effusion? NM cardiolite stress test 03/2022 Impression: ? 1.? Myocardial perfusion imaging study shows normal myocardial perfusion 2.? Gated LVEF is 65% 3. Transient ischemic dilatation not present ? EKG is nondiagnostic for ischemia Assessment and Plan Assessment Anesthesia Assessment: Chart Reviewed Final Anesthetic Review Family History of Problems with Anesthesia: No History of Problems with Anesthesia: No Documented by User: Devi Cadet MD 10/31/22 10:22 [facility] Past Medical History Medical History Anxiety and depression Arthritis Asthma Asthma-COPD overlap syndrome Back pain Chronic abdominal pain COPD (chronic obstructive pulmonary disease) GERD (gastroesophageal reflux disease) History of COVID-19 History of kidney stones HTN (hypertension) Hyperlipidemia Irritable bowel syndrome Leukocytosis Osteoporosis (~2001) Personal history of nicotine dependence Tubular adenoma of colon (~2019) Viral syndrome Family History Family History Father No problems noted. Mother No problems noted. Son No problems noted. Daughter No problems noted. Surgical History Surgical History History of bilateral hip replacements History of colonoscopy (~2005) History of colonoscopy with polypectomy (~2020) History of hip surgery (~2001) History of hydrocelectomy History of surgery on right wrist (~2014) S/P extracorporeal shock wave therapy (~2013) Shoulder symptoms with history of shoulder arthroplasty Social History Social History Alcohol intake: unknown Patient Tobacco Use Status: Current everyday Tobacco user Tobacco use type: Cigarette Cigarette Packs Per Day: 0.5 Cigarettes Per Day: 5 Years Smoked: (onset 14yo, 1/2-3/4ppd x 37yrs, 23pyh) Second Hand Smoke Exposure: No Use of substances other than those prescribed or required for medical reasons: No Are you DNR?: No Advance Directives: No Advance Directives Information Provided: Yes Advance Directives Date on File: 05/30/21 service: No Current occupational status: disabled Meds Allergies Allergy/AdvReac Type Severity Reaction Status Date / Time ibuprofen [From Motrin] Allergy Rash Verified 10/30/22 14:40 Home Medications Medication Instructions Recorded Confirmed Last Taken Type acetaminophen 650 mg 650 mg PO Q8H PRN Pain 05/28/21 09/15/22 Unknown History tablet,extended release amlodipine 5 mg tablet 5 mg PO DAILY 05/28/21 09/15/22 Unknown History atorvastatin 10 mg tablet 10 mg PO BEDTIME 05/28/21 09/15/22 Unknown History baclofen 20 mg tablet 20 mg PO TID PRN muscle spasm 05/28/21 09/15/22 Unknown History calcium carbonate 500 mg-vitamin 1 tab PO BID 05/28/21 09/15/22 Unknown History D3 5 mcg (200 unit) tablet (Oyster Shell Calcium-Vitamin D3) cholecalciferol (vitamin D3) 50 2,000 unit PO DAILY 05/28/21 09/15/22 Unknown History mcg (2,000 unit) tablet metformin 500 mg tablet 500 mg PO BID 05/28/21 09/15/22 Unknown History metoprolol succinate 25 mg 25 mg PO DAILY 05/28/21 09/15/22 09/06/22 07:00 History tablet,extended release 24 hr clotrimazole 1 % topical cream appl topical 07/26/21 09/15/22 Unknown History nebulizers 06/14/22 09/04/22 Unknown History prednisone 10 mg tablet 10 mg PO DAILY 09/04/22 09/15/22 Unknown History Exam Airway Mallampati Class: II TM Dist: >3cm Neck ROM: Full Heart: rrr Lungs: cta Assessment and Plan Assessment Anesthesia Assessment: Anesthesia Plan Discussed and Chart Reviewed (pt still with dark stool. angel aware , ordered 2 fleets enema ) Final Anesthetic Review NPO: Yes ASA Class: III Final Preanesthetic Review: No Changes in Pt Med Stat, Meds/Allgs Chart Reviewed, Consent Obtained/Reviewed and Anes Risks/Benef Reviewed Patient Risk: Intermediate Procedure Risk: Low Anesthetic Plan Anesthetic Plan: MAC: Disposition: Standard PACU
[2022-10-31 10:05] VITALS: BMI 23.6
--- NOTE | 2022-10-31 10:10 | MHC.SHP ---
Pre-Procedural Eval Section A Date of Service: 10/31/22 Section B Chief Complaint: Benign neoplasm of colon,chronic idiopathic consti Present Medications: see Short Stay Collaborative assessment Medical History: Significant History Allergies: Allergies Allergy/AdvReac Type Severity Reaction Status Date / Time ibuprofen [From Motrin] Allergy Rash Verified 10/30/22 14:40 Plan I have reviewed the history and physical and performed a pertinent physical examination on my patient. No changes have occurred unless specified. Time Spent With Patient Time: Total time managing care of this patient today ____ minutes.
[2022-10-31 10:12] LABS: Glucose, Whole Blood 128 mg/dL (60-115)
[2022-10-31 10:20] VITALS: BP 128/83; PULSE 85; RESP 16; TEMP 36.5; O2SAT 93
[2022-10-31] MEDS: Sodium Phosphate,Mono-Dibasic 133 ML ENEMA PR ×2 (10:29→10:55)
--- NOTE | 2022-10-31 10:33 | PC.NURSE ---
patient lio procedure poor. laying on left side for fleet enema. patient agreed to procedure. explained to patient with dry house attendant.
--- NOTE | 2022-10-31 10:51 | PC.NURSE ---
output for bowel movement is yellow,cloudy with some sediment. md ortiz wants a second fleet to be given
--- NOTE | 2022-10-31 10:59 | PC.NURSE ---
second fleet enema performed lio second admin alot better. laying on left lateral position. awaiting for output results.
== END ==
PROVIDERS: PCP Internal Medicine; Visit Provider Internal Medicine Gastroenterology
DX: K59.04 Chronic idiopathic constipation (principal); Z53.8 Procedure and treatment not carried out for other reasons; Z86.010 Personal history of colon polyps; J44.9 Chronic obstructive pulmonary disease, unspecified; I10 Essential (primary) hypertension; F17.210 Nicotine dependence, cigarettes, uncomplicated
CPT/HCPCS: 82947

== ENCOUNTER 2022-11-13 11:00 | Outpatient (RCR) | payer MEDICAID, SELFPAY | END 2023-01-12 09:20 | disposition home or self-care (01) | LOC: HO.PT 11:00 | PROVIDERS: PCP Internal Medicine; Visit Provider Internal Medicine | DX: M47.812 Spondylosis without myelopathy or radiculopathy, cervical region (principal); S16.1XXD Strain of muscle, fascia and tendon at neck level, subsequent encounter | CPT/HCPCS: 97140; 97161 ==

== ENCOUNTER 2022-11-28 10:26 | Outpatient (AMB) | payer MEDICAID, SELFPAY ==
[2022-11-28 10:31] VITALS: BP 128/70; PULSE 90; O2SAT 95; BMI 24.4
--- NOTE | 2022-11-28 10:31 | A.OFFVIS_ITS ---
Intake Vital Signs 11/28/22 10:31 Height 5 ft 7 in Weight 155 lb 13.869 oz BMI 24.4 BP 128/70 Blood Pressure Location Lt brachial Position Sitting Pulse 90 Pulse Source Pulse Oximeter Pulse Oximetry (%) 95 Oxygen Delivery Method Room Air Intake Visit Reasons: COPD Allergies ibuprofen [From Motrin] Allergy (Verified 11/28/22 10:34) Rash HPI HPI Comments History of Present Illness Details The patient is a 52-year-old gentleman with known tobacco dependency since asthma COPD overlap syndrome. The patient continues to have significant shortness of breath and wheezing. Moderate severity. But, overall better. he has been on chronic steroids. He has not been able to go below 20 mg. he does have productive sputum, which is whitish in color. Associated with shortness of breath. He has gained some weight due to the prednisone. At this point the patient will be a good candidate for Daliresp. We also talked about smoking cessation and the importance to quit. He has been on Chantix and appears to be working. he is going to continue on Chantix at this time. 08/08/2021 the patient is here for pulmonary follow-up visit. Overall he is trying to stay healthy. He has been trying to cut down the smoking. Although has been very hard for him to quit. He has been losing weight which is reassuring. He continues uses respiratory therapy. Unfortunately the inhalers are not sufficient and he is still taking 10 mg prednisone the morning and sometimes he needs 10 mg at nighttime otherwise he wakes up short of breath with chest tightness. He has already demonstrating some evidence of lower extremity edema explained to him that using the prednisone will help with his breathing but worsened a lot although conditions. Therefore we need to work on getting off these prednisone as much as possible. The patient does have an asthma phenotype. He had asthma as a child and also had an elevated IgE level and significant allergies including mold allergies. The patient is IgE was around 700. The patient will be a good candidate for Xolair at this time. Hopefully with starting biologic therapy will get him off the prednisone and ultimately decrease his adverse effects and complications from chronic prednisone use. 06/14/2022 the patient is here for sick v isit. It started developing worsening cough and shortness of breath as well as chest discomfort. He was evaluated initially here at [place] in that he went to [facility] where he was admitted for 3 days. It appears that his respiratory viral panel was positive likely for RSV although we do not have the confirmations at this time. He was given prednisone antibiotics. He was also given pain medications. The patient has not been any better. Every time he coughs it hurts him. In the office we did do 2 treatments of nebulized therapy that did help. He did expectorate some phlegm. The patient has significant wheezing. After the treatments he did feel better he did receive 125 mg Solu-Medrol. In addition to that will restart him on the prednisone and antibiotics. Also provide him with cough medication. If his symptoms worsen he may need to go back to the ER if he fails outpatient therapy. Unfortunately, he continues to smoke cigarettes. Will try to get the reports from [facility] to get more details of his hospitalization. 08/28/2022 the patient is here for pulmon axel follow-up visit. Overall he is doing a little better from a respiratory status. However, patient developed some compression fractures. He has significant osteoporosis due to his chronic prednisone use. We tried decreasing his prednisone dose however, the patient has frequent exacerbations. He is also on chronic prednisone likely prednisone dependent. We did try Xolair but the patient did not want to take the sections. We can have him start Daliresp to see if this helps decrease the need for prednisone. However, really what is going to be most important for him to quit smoking and the patient is not willing to quit altogether. He did cut down which is good. I did provide him with 1 mg prednisone tablets. He can decrease by 1 mg every 1 week to try to come down to at least 10 mg daily. At that point will try to get him a little lower if possible although likely will require chronic dose. He is going to continue his respiratory therapy. Will try to simplify his regimen by placing him on Trelegy. He needs to be careful not to over medicate with inhalers. a [id number] the patient is here for pulmonary follow-up visit. He is complaining of significant chest congestion. Difficult to expectorate. Moderate severity. Unfortunately when he tries to cough he started developing significant abdominal discomfort. Then, this results in significant discomfort and pain and sometimes he can even sleep. Sometimes he has to cry. The patient is uncomfortable overall. Unfortunately he continues to smoke cigarettes. He has been trying to cut down although is still very difficult for him. Otherwise been using nebulized therapy. We did review his imaging studies. His last CT scan was back in March demonstrating evidence of bronchitis and some bronchiectatic changes at the bases. All some some mosaic pattern. We did talk about considering bronchoscopy to further address his underlying chronic bronchitis and assess for any smoldering infections. In addition to this the patient does complaint of significant abdominal distention. He does have diabetes and is at risk for gastroparesis. Therefore we will increase his pulmonary toilet he agent to 500 mg 3 times a week. 11/28/2022 the patient is here for a pulm onary follow-up visit. She feels a little better. Less congestion. He has been on the azithromycin 3 times a week. Seems to be helping. She did not get the Trelegy inhaler as it was not covered. Therefore will go ahead and send Breo and Incruse that he can take daily. The patient still having some chest congestion. Will given MAC spectrum for him to take. Unfortunately does smoke cigarettes. He has been struggling to quit. I did send Chantix for him. He can consider starting Chantix if he is ready to quit. Otherwise he notes that he will continue waiting worse. We had talked about a bronchoscopy but the patient failed to show up. This point will hold off any bronchoscopy set this time. The patient needs to do a better job with adherence. He still continues to be on prednisone. Will follow-up in 3-4 months. [facility] Medical History Anxiety and depression Arthritis Asthma Asthma-COPD overlap syndrome Back pain Chronic abdominal pain COPD (chronic obstructive pulmonary disease) GERD (gastroesophageal reflux disease) History of COVID-19 History of kidney stones HTN (hypertension) Hyperlipidemia Irritable bowel syndrome Leukocytosis Osteoporosis (~2001) Personal history of nicotine dependence Tubular adenoma of colon (~2019) Viral syndrome Surgical History History of bilateral hip replacements History of colonoscopy (~2005) History of colonoscopy with polypectomy (~2020) History of hip surgery (~2001) History of hydrocelectomy History of surgery on right wrist (~2014) S/P extracorporeal shock wave therapy (~2013) Shoulder symptoms with history of shoulder arthroplasty Family History Father No problems noted. Mother No problems noted. Son No problems noted. Daughter No problems noted. Social History Alcohol intake: unknown Patient Tobacco Use Status: Current everyday Tobacco user Tobacco use type: Cigarette Cigarette Packs Per Day: 0.5 Cigarettes Per Day: 5 Years Smoked: (onset 14yo, 1/2-3/4ppd x 37yrs, 23pyh) Second Hand Smoke Exposure: No Advance Directives Date on File: 05/30/21 service: No Current occupational status: disabled Review of Systems Const Denies chills, Denies difficulty sleeping, Reports fatigue, Denies fever(s), Reports headache(s) and Denies night sweats ENT Denies change in voice, Reports headache(s), Denies lip swelling, Denies mouth pain, Reports nasal congestion, Reports nasal discharge and Denies tongue swelling Card Reports leg edema and Reports dyspnea on exertion Resp Reports chest congestion, Reports cough, Denies hemoptysis, Reports dyspnea on exertion and Reports wheezing GI Reports abdominal pain and Reports bloating Musc Reports as per HPI and Reports back pain Neuro Denies Neuro-related abnormal movements and Reports headache(s) Psych Denies no additional complaints Endo Reports fatigue Jamie/Lymph Denies easy bleeding and Denies lymphadenopathy Aller/Immun Denies lip swelling, Denies tongue swelling and Reports wheezing Physical Exam Vital Signs: Last Vital Signs Pulse 90 11/28/22 10:31 BP 128/70 11/28/22 10:31 Pulse Ox 95 11/28/22 10:31 Oxygen Delivery Method Room Air 11/28/22 10:31 BMI result Body Mass Index 24.4 Const General: alert and in distress mild and respiratory Neck Neck: Yes normal visual inspection, Yes full ROM and Yes no lymphadenopathy Chest Chest palpation & inspection: normal inspection of the chest Resp Effort & Inspection: prolonged expiratory phase Auscultation: no crackles, no wheezes and diminished lung sounds Cardio Rate: regular rate Rhythm: regular rhythm Heart sounds: S1 normal heart sound present and S2 normal heart sound present GI Inspection: Yes distended Palpation (GI): nontender Skin General skin exam: rashes and/or lesions noted Assessment & Plan Assessment & Plan (1) COPD (chronic obstructive pulmonary disease): Code(s): J44.9 - Chronic obstructive pulmonary disease, unspecified Qualifiers: COPD type: COPD with acute exacerbation Qualified Code(s): J44.1 - Chronic obstructive pulmonary disease with (acute) exacerbation (2) Tobacco dependence: Code(s): F17.200 - Nicotine dependence, unspecified, uncomplicated Plan continue Accolate 20mg BID continue Incruse start Breo continue Combivent continue Azithromycin 500mg MWF LDCT program short-acting beta agonist as needed prednisone 10mg baseline start chantix for tobacco cessation follow-up 3-4 months Medications: New varenicline (Chantix Starting Month Box) PO PER PKG DIR 48 ea 0RF guaifenesin 200 mg (10 mL) PO Q4H 14 days PRN 473 mL 4RF cough umeclidinium 62.5 mcg/actuation (Incruse Ellipta) 1 inh inhalation DAILY 30 days 30 ea 11RF J45.909 - Unspecified asthma, uncomplicated fluticasone furoate-vilanterol 200-25 mcg/dose (Breo Ellipta) 1 inh inhalation DAILY 30 days 60 ea 11RF J45.909 - Unspecified asthma, uncomplicated Refilled azithromycin Sunday, Sunday, Sunday 500 mg PO 3XW 28 days 12 tabs 6RF Quality Reporting (2019) Adult ([facility] 13805/10/68) Smoking risk assessment performed?: Yes Patient Tobacco Use Status: Current everyday Tobacco user Coding Level of Care Code Est Pt Level 4 (19197) Diagnoses Chronic obstructive pulmonary disease with acute exacerbation J44.1 COPD type: COPD with acute exacerbation Tobacco dependence F17.200 Time Spent (min) 17
== END 2022-11-28 11:08 | disposition home or self-care (01) ==
PROVIDERS: PCP Internal Medicine; Visit Provider Hospitalist
DX: J44.1 Chronic obstructive pulmonary disease with (acute) exacerbation (principal); F17.200 Nicotine dependence, unspecified, uncomplicated
CPT/HCPCS: 99214

== ENCOUNTER → 2022-11-28 10:26 | Outpatient (BNVA) | payer MEDICAID, SELFPAY | PROVIDERS: PCP Internal Medicine; Visit Provider Hospitalist | DX: J44.1 Chronic obstructive pulmonary disease with (acute) exacerbation (principal); F17.210 Nicotine dependence, cigarettes, uncomplicated; Z79.899 Other long term (current) drug therapy | CPT/HCPCS: 99212 ==

== ENCOUNTER 2022-12-01 11:47 | Outpatient (REF) | payer MEDICAID, SELFPAY ==
[2022-12-01 14:56] LABS: MANUAL DIFF FLAG NO
[2022-12-01 15:12] LABS: Basophils Absolute Auto 0.1 X10*3/uL (0.0-0.2); Basophils Percent Auto 0.6 % (0-2); Eosinophils Percent Auto 0.2 % (0-4); Hematocrit 45.5 % (42.0-52.0); Hemoglobin 14.8 g/dl (14.0-18.0); Imm Gran Abs Auto 0.14 X10*3/uL (0.00-0.03); Lymphocytes Absolute Auto 2.4 X10*3/uL (1.2-4.9); Lymphocytes Percent Auto 17.3 % (20-40); Mean Corpuscular HGB Conc 32.5 g/dl (31.0-36.0); Mean Corpuscular Hemoglobin 30.1 pg (27.0-33.0); Mean Corpuscular Volume 92.5 fL (80.0-98.0); Monocytes Percent Auto 7.5 % (2-11); Neutrophils Absolute Auto 10.2 x10*3/uL (2.0-8.3); Neutrophils Percent Auto 73.4 % (45-73); Platelet Count 342 X10*3/uL (160-400); Red Blood Count 4.92 X10*6/uL (4.60-5.80); Red Cell Distribution Width 14.6 % (11.0-16.0); White Blood Count 13.9 X10*3/uL (4.8-10.8)
[2022-12-01 15:39] LABS: Estimated Average Glucose 134 mg/dL; Hemoglobin A1c % 6.3 % (<6.0)
[2022-12-01 15:57] LABS: Syphilis Screen Nonreactive (Nonreactive)
[2022-12-01 16:10] LABS: Amphetamine Screen Urine Not Detected (Not Detect); Barbiturates, Urine Not Detected (Not Detect); Benzodiazepines Screen Urine Not Detected (Not Detect); Cannabinoid Screen Urine Not Detected (Not Detect); Cocaine Screen Urine Not Detected (Not Detect); Fentanyl, urine Not Detected (Not Detect); Opiate Screen Urine Not Detected (Not Detect); Phencyclidine Screen Urine Not Detected (Not Detect)
[2022-12-01 16:11] LABS: Creatinine Urine 134.93 mg/dL; Microalbum/Creatinine Ratio Ur 52.6 ug/mg cr (<30)
[2022-12-01 16:23] LABS: Alanine Aminotransferase 13 U/L (0-40); Albumin Level 4.2 g/dL (3.5-5.0); Alkaline Phosphatase 60 U/L (39-117); Anion Gap 13 (12-20); Aspartate Amino Transferase 14 U/L (5-37); Bilirubin Total 0.6 mg/dL (0.0-1.0); Blood Urea Nitrogen 8 mg/dL (9-16); Calcium 8.9 mg/dL (8.4-10.2); Carbon Dioxide 28 mmol/L (22-29); Chloride 104 mmol/L (96-108); Cholesterol 178 mg/dL (<200); Estimated Glomerular Filt Rate > 60; Glucose Random 95 mg/dL (60-115); HDL Cholesterol 63 mg/dL (>40); LDL Cholesterol Calculated 100 mg/dL (<100); Sodium 141 mmol/L (135-145); TSH reflex Free T4 0.59 uIU/mL (0.32-4.0); Triglycerides 79 mg/dL (<150)
[2022-12-01 16:43] LABS: Folate 10.2 ng/mL (> or = 4.0); Vitamin B12 414 pg/mL (200-900)
[2022-12-02 04:12] LABS: ~HepC Num1 0.08 S/CO (0.00-0.79); ~Hepatitis C Antibody Nonreactive (Nonreactive)
[2022-12-02 04:34] LABS: HBS Num1 0.34 mIU/mL (0-7.99); HBc Num1 0.08 S/CO (0.00-0.79); HIV AB/AG Nonreactive (Nonreactive); HIV Num 1 0.06 S/CO (0.00-0.99); Hepatitis B Core Antibody Nonreactive (Nonreactive); Hepatitis B Surface Antigen Negative (Negative); ~Hepatitis B Surface Antibody NONREACTIVE (Nonreactive)
[2022-12-02 05:49] LABS: CT PCR NOT DETECTED (Not Detect.); NG PCR NOT DETECTED (Not Detect.)
[2022-12-09 00:44] LABS: VITAMIN D (1,25 OH) D3 17 pg/mL; Vit D (1,25-Dihydroxy) Total 98 pg/mL (18-72); Vitamin D (1,25 OH) D2 81 pg/mL
== END 2022-12-01 11:48 | disposition home or self-care (01) ==
LOC: HO.HHCL 11:47
PROVIDERS: Visit Provider Student in an Organized Health Care Education/Training Program
DX: M80.08XS Age-related osteoporosis with current pathological fracture, vertebra(e), sequela (principal); E11.9 Type 2 diabetes mellitus without complications; I10 Essential (primary) hypertension; Z11.59 Encounter for screening for other viral diseases; Z11.3 Encounter for screening for infections with a predominantly sexual mode of transmission
CPT/HCPCS: 0353U; 80053; 80061; 80307; 82043; 82570; 82607; 82652; 82746; 83036; 84443; 85025; 86704; 86706; 86780; 86803; 87340; 87389

== ENCOUNTER 2023-01-03 11:32 | Outpatient (REF) | payer MEDICAID, SELFPAY ==
--- NOTE | ~2023-01-03 | XR_ITS ---
EXAMINATION: XR CHEST CLINICAL INFORMATION: Cough COMPARISON: 05/27/2022 TECHNIQUE: 2 views of the chest were obtained. FINDINGS: No significant abnormality is noted involving the heart, lungs, mediastinum, bony thorax. Patient is status post T7 kyphoplasty, new since May 2019 XR/XR chest 2V IMPRESSION: No active cardiopulmonary disease
== END 2023-01-03 11:33 | disposition home or self-care (01) ==
LOC: HO.HHCX 11:32
PROVIDERS: Visit Provider Student in an Organized Health Care Education/Training Program
DX: J44.9 Chronic obstructive pulmonary disease, unspecified (principal)
CPT/HCPCS: 71046

== ENCOUNTER 2023-01-04 11:22 | Outpatient (REF) | payer MEDICAID, SELFPAY ==
--- NOTE | ~2023-01-04 | CT_ITS ---
EXAMINATION: CT THORACIC SPINE WITHOUT CONTRAST CLINICAL INFORMATION: Back pain. Recent T7 kyphoplasty. COMPARISON: MRI thoracic spine 09/04/2022. TECHNIQUE: Axial 1.5 mm thin and reformatted 2 mm thin sagittal and coronal images of thoracic spine were obtained. This CT examination was performed using dose optimization techniques as appropriate, variously including the following: *Automated exposure control *Adjustment of mA and/or kV according to patient size (this includes techniques or standardized protocols for targeted exams where dose is matched to indication/reason for exam; i.e. extremities or head) *Use of iterative reconstruction technique DLP: 510 mGy-cm FINDINGS: On sagittal reconstructed images there is normal thoracic kyphosis. There is loss of T5 and T7 vertebral height consistent with compression fractures. There is cement augmentation of T7 vertebra. The T5 compression fracture is still visualized and similar to previous MRI 09/04/2022. Rest of the vertebral heights and alignment is normal. There are mild degenerative disc bulge/osteophyte complex T5-T6, T6-T7, T7-T8, T10-T11 and T11-T12 disc levels. There is an eccentric right disc bulge/osteophyte complex is seen at T9-T10. There is known T7 fracture with cement augmentation with cement extending to left costovertebral junction. Punctate symmetric is seen in the left spinal canal and left proximal neural foramina. Correlate with clinical exam if patient has left ventricle atrophy. No new compression fracture seen since previous MRI. There are endplate changes at several thoracic disc levels. There is diffuse osteopenia. CT/CT thoracic spine wo IV con IMPRESSION: Old compression fractures T5 and T7 vertebra. There is cement augmentation of T7 vertebra with punctate extravasation in left costovertebral junction, left proximal neural foramina and left lateral spinal canal. There may are may not be left-sided radiculopathy involving T7 nerve root. There is no new compression fracture seen. There is diffuse osteopenia. Fleischner guidelines were followed.
== END 2023-01-04 11:23 | disposition home or self-care (01) ==
LOC: HO.CT 11:22
PROVIDERS: PCP Student in an Organized Health Care Education/Training Program; Visit Provider Student in an Organized Health Care Education/Training Program
DX: M80.08XS Age-related osteoporosis with current pathological fracture, vertebra(e), sequela (principal)
CPT/HCPCS: 72128

== ENCOUNTER 2023-01-07 18:59 | Emergency (ER) | payer MEDICAID, SELFPAY ==
--- NOTE | ~2023-01-07 | XR_ITS ---
EXAMINATION: XR CHEST CLINICAL INFORMATION: Shortness of breath COMPARISON: 01/03/2023 TECHNIQUE: Frontal view of the chest was obtained. FINDINGS: Mild bibasilar atelectasis. No consolidation, pneumothorax, or pleural effusion. Perihilar bronchial thickening. Cardiac and mediastinal contours are normal. Calcific atherosclerosis in the thoracic aorta. Osteoarthritis is present in the acromioclavicular and glenohumeral joints. Vertebral cement is noted in the thoracic spine. XR/XR chest 1V IMPRESSION: Bronchial wall thickening can be seen with a small airways process such as asthma or atypical/viral infection. No focal airspace consolidation.
--- NOTE | 2023-01-07 19:01 | ECG_ITS ---
Test Reason : SOB Blood Pressure : / mmHG Vent. Rate : 114 BPM Atrial Rate : 114 BPM P-R Int : 118 ms QRS Dur : 068 ms QT Int : 310 ms P-R-T Axes : 104 046 114 degrees QTc Int : 427 ms Poor data quality Sinus tachycardia Nonspecific ST and T wave abnormality Abnormal ECG When compared with ECG of 12-JUL-2022 02:27, T wave amplitude has decreased in Lateral leads Referred By: Ally Parrish Electronically Signed By:MAKENZIE JACKSON MD
[2023-01-07 19:03] VITALS: BP 148/70; PULSE 116; RESP 20; TEMP 36.6; O2SAT 96; BMI 25.8
--- NOTE | 2023-01-07 19:04 | ED.GENADULT ---
HPI - General Adult General Chief complaint: Asthma Stated complaint: asthma / sob / chest pain Time Seen by Provider: 01/07/23 19:09 Source: patient Mode of arrival: EMS Limitations: no limitations History of Present Illness HPI narrative: Patient history of COPD/asthma, hypertension, anxiety and depressed been coughing and increased shortness of breath for last 3 -4 days does not have any inhaler about used nebulizing machine which are much response does a cough with muco-purulent phlegm no fever no chills no leg swelling on arrival patient with tachypnea which saturation 96% room air Related Data Home Medications Medication Instructions Recorded Confirmed acetaminophen 650 mg 650 mg PO Q8H PRN Pain 05/28/21 09/15/22 tablet,extended release amlodipine 5 mg tablet 5 mg PO DAILY 05/28/21 09/15/22 atorvastatin 10 mg tablet 10 mg PO BEDTIME 05/28/21 09/15/22 baclofen 20 mg tablet 20 mg PO TID PRN muscle spasm 05/28/21 09/15/22 calcium carbonate 500 mg-vitamin 1 tab PO BID 05/28/21 09/15/22 D3 5 mcg (200 unit) tablet (Oyster Shell Calcium-Vitamin D3) cholecalciferol (vitamin D3) 50 2,000 unit PO DAILY 05/28/21 09/15/22 mcg (2,000 unit) tablet metformin 500 mg tablet 500 mg PO BID 05/28/21 09/15/22 metoprolol succinate 25 mg 25 mg PO DAILY 05/28/21 09/15/22 tablet,extended release 24 hr clotrimazole 1 % topical cream appl topical 07/26/21 09/15/22 nebulizers 06/14/22 09/04/22 prednisone 10 mg tablet 10 mg PO DAILY 09/04/22 09/15/22 Previous Rx's Medication Instructions Recorded nystatin 100,000 unit/gram topical 1 appl topical TID #15 grams 07/26/21 cream bisacodyl 5 mg tablet,delayed 10 mg (2 x 5 mg) PO BEDTIME 2 days 03/09/22 release (Dulcolax (bisacodyl)) #4 tabs fgyxze-[id number]-owhdoyq 1 cap PO QID 30 days #120 caps 03/09/22 24,000-76,000-120,000 unit capsule,delayed rel (Creon) linaclotide 290 mcg capsule 290 mcg PO QAM #30 caps 04/18/22 (Linzess) roflumilast 250 mcg tablet 250 mcg PO DAILY 30 days #30 tabs 08/28/22 (Daliresp) tramadol 50 mg tablet 50 mg PO Q8H PRN postoperative 09/06/22 pain 3 days #10 tabs ipratropium 20 mcg-albuterol 100 1 puff inhalation Q6H 30 days #4 10/20/22 mcg/actuation mist for inhalation grams (Combivent Respimat) codeine 10 mg-guaifenesin 100 mg/5 10 ml PO Q6H PRN cough 10 days 10/30/22 mL oral liquid #300 mL fluticasone fur. 200 mcg-umeclid 1 inh inhalation DAILY 30 days #60 10/30/22 62.5 mcg-vilant 25 mcg ea inhalat.powder (Trelegy Ellipta) zafirlukast 20 mg tablet 20 mg PO BID 30 days #60 tabs 10/30/22 peg 3350-electrolytes 236 240 ml PO Q10M #4,000 mL 11/21/22 gram-22.74 gram-6.74 gram-5.86 gram solution azithromycin 500 mg tablet 500 mg PO 3XW 28 days #12 tabs 11/28/22 fluticasone furoate 200 1 inh inhalation DAILY 30 days #60 11/28/22 mcg-vilanterol 25 mcg/dose ea inhalation powder (Breo Ellipta) guaifenesin 100 mg/5 mL oral liquid 200 mg (10 mL) PO Q4H PRN cough 14 11/28/22 days #473 mL umeclidinium 62.5 mcg/actuation 1 inh inhalation DAILY 30 days #30 11/28/22 blister powder for inhalation ea (Incruse Ellipta) varenicline 0.5 mg (11)-1 mg (42) See Rx Instructions PO PER PKG DIR 11/28/22 tablets in a dose pack (Chantix #48 ea Starting Month Box) famotidine 40 mg tablet 40 mg PO BEDTIME #90 tabs 11/29/22 omeprazole 40 mg capsule,delayed 40 mg PO DAILY #90 caps 12/08/22 release varenicline 1 mg tablet (Chantix) 1 mg PO BID 30 days #60 tabs 01/03/23 ipratropium 20 mcg-albuterol 100 1 puff inhalation Q6H #4 grams 01/07/23 mcg/actuation mist for inhalation (Combivent Respimat) prednisone 20 mg tablet 40 mg (2 x 20 mg) PO DAILY #10 tabs 01/07/23 albuterol sulfate 90 mcg/actuation 2 puff PO Q6H PRN for dyspnea #18 01/09/23 aerosol inhaler (Ventolin HFA) ea ipratropium bromide 17 2 puff inhalation QID 30 days 01/09/23 mcg/actuation HFA aerosol inhaler #12.9 grams (Atrovent HFA) Allergies Allergy/AdvReac Type Severity Reaction Status Date / Time ibuprofen [From Motrin] Allergy Rash Verified 11/28/22 10:34 [facility] Past Medical History Medical History Viral syndrome History of COVID-19 Leukocytosis Hyperlipidemia Personal history of nicotine dependence Back pain Arthritis Anxiety and depression Asthma History of kidney stones Chronic abdominal pain Tubular adenoma of colon (~2019) Asthma-COPD overlap syndrome Osteoporosis (~2001) Irritable bowel syndrome GERD (gastroesophageal reflux disease) COPD (chronic obstructive pulmonary disease) HTN (hypertension) Surgical History History of bilateral hip replacements History of colonoscopy with polypectomy (~2020) History of colonoscopy (~2005) History of surgery on right wrist (~2014) History of hip surgery (~2001) S/P extracorporeal shock wave therapy (~2013) History of hydrocelectomy Shoulder symptoms with history of shoulder arthroplasty Family History Family History Father No problems noted. Mother No problems noted. Son No problems noted. Daughter No problems noted. Social History Social History Alcohol intake: unknown Patient Tobacco Use Status: Current everyday Tobacco user Tobacco use type: Cigarette Cigarette Packs Per Day: 0.5 Cigarettes Per Day: 5 Years Smoked: (onset 14yo, 1/2-3/4ppd x 37yrs, 23pyh) Smoked in Last 30 Days: Yes Second Hand Smoke Exposure: No Use of substances other than those prescribed or required for medical reasons: No Advance Directives: No Advance Directives Information Provided: No Advance Directives Date on File: 05/30/21 service: No Current occupational status: disabled Physical Exam ED Vital Signs: Vital Signs - 24 hr 01/07/23 19:03 01/07/23 19:25 01/07/23 21:59 Temperature 97.8 F Pulse Rate 116 H 105 H 93 Respiratory Rate 20 26 H 16 Blood Pressure 148/70 H Pulse Oximetry 96 Oxygen Delivery Method Room Air BMI result Body Mass Index 25.8 Appearance: Alert. Oriented X3. No acute distress. Eyes: No pallor or icterus ENT: Pharynx normal. Oral Mucosa moist Neck: Normal inspection. Neck supple. CVS: Normal heart rate and rhythm. Pulses normal. Respiratory: Moderate respiratory distress. Equal air entry bilateral, bilateral wheezing Abdomen: Soft and nontender. Bowel sounds are present, no mass palpable, no CVA tenderness Skin: Skin warm and dry. Normal skin color. Normal skin turgor. Extremities: 2+ lower extremity edema. No calf tenderness Neuro: Oriented X 3. No motor deficit. No sensory deficit.No cerebellar signs , cranial nerves II-XII intact Course Course Course Narrative: This is a rapid medical exam: Additional HPI, ROS, PE not included below will be deferred to primary provider. Patient is a 52-year-old male with history of asthma presenting to the emergency department with complaint of shortness of breath, chest pain and wheezing. [facility] has had symptoms for 3 days but symptoms worsened today. Patient with increased work of breathing, tachypneic in triage, tachycardic, O2 95-97% on room air, inspiratory and expiratory wheezing throughout with diminished LS. [facility] does not have inhalers at home. Patient brought directly back to main ED. Medications Administered Discontinued Medications Generic Name Dose Route Start Last Admin Trade Name Freq PRN Reason Stop Dose Admin Albuterol Sulfate 5 mg 01/07/23 21:52 01/07/23 21:56 Albuterol Sulfate (0.083%) 2.5 Mg/3 Ml Vial.Neb INHALE 01/07/23 21:53 5 mg ONCE ONE Administration Albuterol Sulfate 5 mg/ 0 mg 01/07/23 19:18 01/07/23 19:24 Albuterol/Ipratropium 3 ml INHALE 01/07/23 19:19 7.5 each ONCE ONE Administration Magnesium Sulfate 2 gm in 50 mls @ 25 mls/hr 01/07/23 19:09 01/07/23 21:20 Magnesium Sulfate/H2o IV 01/07/23 21:08 Infused ONCE ONE Infusion Insulin Human Lispro 5 unit 01/07/23 21:57 01/07/23 22:04 Insulin Lispro 100 Unit/Ml 3 Ml Vial SUBCUT 01/07/23 21:58 5 unit ONCE ONE Administration Methylprednisolone Sodium Succinate 125 mg 01/07/23 19:09 01/07/23 19:18 Methylprednisolone Sod Succ 125 Mg/2 Ml Vial IVPUSH 01/07/23 19:10 125 mg ONCE ONE Administration Medical Decision Making Medical Decision Making [facility] Narrative: Patient's asthma improved after nebulizing treatment and steroids are patient home saturating 96% on room air Differential Diagnosis Differential Diagnoses: The differential diagnosis associated with the presentation includes Asthma exacerbation/status asthmaticus/pneumothorax/pneumonia/CHF Lab Data [facility] Lab Attestation statement: I reviewed the patient's lab results. 01/07/23 19:12 01/07/23 19:12 Labs: Lab Results 01/07/23 01/07/23 01/07/23 Range/Units 19:12 19:21 21:56 WBC 19.7 H (4.8-10.8) X10*3/uL RBC 5.00 (4.60-5.80) X10*6/uL Hgb 15.3 (14.0-18.0) g/dl Hct 46.4 (42.0-52.0) % MCV 92.8 (80.0-98.0) fL MCH 30.6 (27.0-33.0) pg MCHC 33.0 (31.0-36.0) g/dl RDW 13.9 (11.0-16.0) % Plt Count 348 (160-400) X10*3/uL MPV 8.4 L (9.4-12.4) fL Immature Gran % (Auto) Cancelled Neut % (Auto) Cancelled Lymph % (Auto) Cancelled [place] % (Auto) Cancelled Eos % (Auto) Cancelled Baso % (Auto) Cancelled Lymph # (Auto) Cancelled [place] # (Auto) Cancelled Eos # (Auto) Cancelled Baso # (Auto) Cancelled Abs Immat Gran (auto) Cancelled Absolute Neuts (auto) Cancelled Absolute Nucleated RBC 0.000 (0.0-0.012) X10*3/uL Nucleated RBC % (auto) 0.0 (0.0-0.2) /100WBC Neutrophils % (Manual) 83 H (45-73) % Band Neutrophils % 0 L (3-5) % Lymphocytes % (Manual) 9 L (20-40) % Atypical Lymphs % (Man) 1 (0-6) % Monocytes % (Manual) 7 (2-11) % Abs Neuts (Manual) 16.4 H (2.0-8.3) X10*3/uL Lymphocytes # (Manual) 1.8 (1.2-4.9) X10*3/uL Atyp Lymphs # (Manual) 0.2 x10*3/uL Monocytes # (Manual) 1.4 H (0.1-1.2) X10*3/uL Platelet Estimate NORMAL (NORMAL) Plt Morphology Comment NORMAL RBC Morphology NORMAL VBG pH 7.41 (7.32-7.43) VBG pCO2 42 mmHg VBG pO2 37 mmHg VBG HCO3 27 H (22-26) mmol/L VBG O2 Saturation 63.0 % VBG Base Excess 2.6 mmol/L Sodium 140 (135-145) mmol/L Potassium 4.0 (3.3-5.1) mmol/L Chloride 101 (96-108) mmol/L Carbon Dioxide 23 (22-29) mmol/L Anion Gap 20 (12-20) BUN 15 (9-16) mg/dL Creatinine 0.88 (0.5-1.4) mg/dL Estim Creat Clear Calc 89.7 Estimated GFR > 60 POC Glucose 249 H (60-115) mg/dL Random Glucose 311 H (60-115) mg/dL Calcium 10.2 D (8.4-10.2) mg/dL Discharge Plan Discharge Clinical Impression: Asthma-COPD overlap syndrome Patient Disposition: Home, Self-Care Instructions: COPD (Chronic Obstructive Pulmonary Disease) (ED) Additional Instructions: Stop smoking Continue nebulizing treatment every 6 hour as needed Prednisone as prescribed Your blood sugar will increase after prednisone increase the dose of insulin according to the scale Drink plenty of fluid Follow with PCP if not better Prescriptions: New Combivent Respimat 20-100 mcg/actuation mist 1 puff inhalation Q6H Qty: 4 0RF prednisone 20 mg tablet 40 mg PO DAILY Qty: 10 0RF No Action Linzess 290 mcg capsule 290 mcg PO QAM Qty: 30 6RF Combivent Respimat 20-100 mcg/actuation mist 1 puff inhalation Q6H 30 Days Qty: 4 11RF peg 3350-electrolytes 236-22.74-6.74 -5.86 gram recon soln 240 ml PO Q10M Qty: 4000 0RF Rx Instructions: Refer to prep instructions given/ mailed to you from GI OFFICE. until fecal effluent is clear famotidine 40 mg tablet 40 mg PO BEDTIME Qty: 90 1RF omeprazole 40 mg capsule,delayed release(DR/EC) 40 mg PO DAILY Qty: 90 1RF varenicline [Chantix] 1 mg tablet 1 mg PO BID 30 Days Qty: 60 3RF albuterol sulfate [Ventolin HFA] 90 mcg/actuation HFA aerosol inhaler 2 puff PO Q6H PRN (Reason: for dyspnea) Qty: 18 5RF Atrovent HFA 17 mcg/actuation HFA aerosol inhaler 2 puff inhalation QID 30 Days Qty: 12.9 11RF metformin 500 mg tablet 500 mg PO BID atorvastatin 10 mg tablet 10 mg PO BEDTIME amlodipine 5 mg tablet 5 mg PO DAILY acetaminophen 650 mg tablet extended release 650 mg PO Q8H PRN (Reason: Pain) baclofen 20 mg tablet 20 mg PO TID PRN (Reason: muscle spasm) metoprolol succinate 25 mg tablet extended release 24 hr 25 mg PO DAILY calcium carbonate-vitamin D3 [Oyster Shell Calcium-Vit D3] 500 mg-5 mcg (200 unit) tablet 1 tab PO BID cholecalciferol (vitamin D3) 50 mcg (2,000 unit) tablet 2,000 unit PO DAILY tramadol 50 mg tablet 50 mg PO Q8H PRN (Reason: postoperative pain) 3 Days Qty: 10 0RF Rx Instructions: do not take this medicine within 2 hours of HS. instead OTC Tylenol 500 1-2 tabs p.o. can be taken at night if his pain is severe. clotrimazole 1 % cream topical nystatin 100,000 unit/gram cream 1 appl topical TID Qty: 15 0RF bisacodyl [Dulcolax (bisacodyl)] 5 mg tablet,delayed release (DR/EC) 10 mg PO BEDTIME 2 Days Qty: 4 0RF Creon 24,000-76,000 -120,000 unit capsule,delayed release(DR/EC) 1 cap PO QID 30 Days Qty: 120 6RF Rx Instructions: administer with meals and/or snacks (DME) nebulizers Misc See Rx Instructions .Route Rx Instructions: As directed prednisone 10 mg tablet 10 mg PO DAILY zafirlukast 20 mg tablet 20 mg PO BID 30 Days Qty: 60 11RF Rx Instructions: must be taken on empty stomach, at least 1 hr before or 2 hrs after a meal/food Trelegy Ellipta 200-62.5-25 mcg blister with device 1 inh inhalation DAILY 30 Days Qty: 60 12RF codeine-guaifenesin 10-100 mg/5 mL liquid 10 ml PO Q6H PRN (Reason: cough) 10 Days Qty: 300 0RF Incruse Ellipta 62.5 mcg/actuation blister with device 1 inh inhalation DAILY 30 Days Qty: 30 11RF fluticasone furoate-vilanterol [Breo Ellipta] 200-25 mcg/dose blister with device 1 inh inhalation DAILY 30 Days Qty: 60 11RF azithromycin 500 mg tablet 500 mg PO 3XW 28 Days Qty: 12 6RF Rx Instructions: Sunday, Sunday, Sunday varenicline [Chantix Starting Month Box] 0.5 mg (11)- 1 mg (42) tablets,dose pack See Rx Instructions PO PER PKG DIR Qty: 48 0RF Rx Instructions: PO PER PKG DIR guaifenesin 100 mg/5 mL liquid 200 mg PO Q4H PRN (Reason: cough) 14 Days Qty: 473 4RF roflumilast [Daliresp] 250 mcg tablet 250 mcg PO DAILY 30 Days Qty: 30 11RF Interventions: ED Discharge Assessment Last Done: 01/07/23 23:14 Discharge Date/Time: 01/07/23 23:15
[2023-01-07] MEDS: Magnesium Sulfate/H2O 2 GM/50 ML PIGGYBACK IV (19:18)
[2023-01-07] MEDS: methylPREDNISolone Sod Succ 125 MG/2 ML VIAL IVPUSH (19:18)
[2023-01-07 19:24] LABS: Hematocrit 46.4 % (42.0-52.0); Hemoglobin 15.3 g/dl (14.0-18.0); Mean Corpuscular Hemoglobin 30.6 pg (27.0-33.0); Mean Corpuscular Volume 92.8 fL (80.0-98.0); Mean Platelet Volume 8.4 fL (9.4-12.4); Platelet Count 348 X10*3/uL (160-400); Red Cell Distribution Width 13.9 % (11.0-16.0)
[2023-01-07 19:24] LABS: Venous Blood Gas Refer to POC result
[2023-01-07] MEDS: Albuterol Sulfate 5 MG, Albuterol/Iprat 2.5/0.5MG 3 ML 3 ML INHALE (19:24)
[2023-01-07 19:25] VITALS: PULSE 105; RESP 26; O2SAT 97
[2023-01-07 19:27] LABS: VBG Base Excess 2.6 mmol/L; VBG HCO3 27 mmol/L (22-26); VBG pCO2 42 mmHg; VBG pH 7.41 (7.32-7.43); VBG pO2 37 mmHg
[2023-01-07 19:28] LABS: WBC ABN SCTR FOR CBC 1
--- NOTE | 2023-01-07 19:32 | PC.NURSE ---
Pt medicated per may. Pt ca&ox4. Resp placed pt on treatment. Provider in with pt. Pt citizen of [place] speaking only. Plan of care ongoing.
[2023-01-07 19:39] LABS: Anion Gap 20 (12-20); Blood Urea Nitrogen 15 mg/dL (9-16); Calcium 10.2 mg/dL (8.4-10.2); Carbon Dioxide 23 mmol/L (22-29); Chloride 101 mmol/L (96-108); Creatinine Clr Calc Pharmacy 89.7; Estimated Glomerular Filt Rate > 60; Glucose Random 311 mg/dL (60-115); Sodium 140 mmol/L (135-145)
[2023-01-07 20:06] LABS: Atypical Lymphs Percent Manual 1 % (0-6); Lymphocytes Percent Manual 9 % (20-40); Monocytes Percent Manual 7 % (2-11); Neutrophils Percent Manual 83 % (45-73)
[2023-01-07 20:07] LABS: Band Neutrophils Percent 0 % (3-5); Platelet Estimate NORMAL (NORMAL); Platelet Morphology Comment NORMAL
[2023-01-07 20:08] LABS: RBC Morphology NORMAL
[2023-01-07 21:55] LABS: Atypical Lymph Absolute Manual 0.2 x10*3/uL; Lymphocytes Absolute Manual 1.8 X10*3/uL (1.2-4.9); Monocytes Absolute Manual 1.4 X10*3/uL (0.1-1.2); Neutrophils Absolute Manual 16.4 X10*3/uL (2.0-8.3); White Blood Count 19.7 X10*3/uL (4.8-10.8)
[2023-01-07] MEDS: Albuterol Sulfate (0.083%) 2.5 MG/3 ML VIAL.NEB 5 MG INHALE (21:56)
[2023-01-07 21:59] VITALS: PULSE 93; RESP 16; O2SAT 96
[2023-01-07 22:02] LABS: Glucose, Whole Blood 249 mg/dL (60-115)
[2023-01-07] MEDS: Insulin Lispro 100 UNIT/ML 3 ML VIAL SUBCUT (22:04)
--- NOTE | 2023-01-07 22:06 | PC.NURSE ---
Pt medicated per may. Plan of care ongoing.
== END 2023-01-07 23:15 | disposition home or self-care (01) ==
PROVIDERS: Emergency Provider Internal Medicine; PCP Student in an Organized Health Care Education/Training Program
DX: J45.909 Unspecified asthma, uncomplicated (principal); J44.9 Chronic obstructive pulmonary disease, unspecified; R06.02 Shortness of breath; R05.9 Cough, unspecified; R07.89 Other chest pain; F17.210 Nicotine dependence, cigarettes, uncomplicated; Z71.6 Tobacco abuse counseling; Z79.899 Other long term (current) drug therapy
CPT/HCPCS: 36415; 71045; 80048; 82803; 82947; 85007; 85027; 93005; 94640; 96365; 96366; 96375; 99284; 99285; J2930; J3475

== ENCOUNTER 2023-01-11 12:28 | Outpatient (AMB) | payer MEDICAID, SELFPAY ==
--- NOTE | 2023-01-11 12:30 | MHC.OFFVIS ---
Intake Vital Signs 01/11/23 12:49 Height 5 ft 7 in Weight 185 lb 3.013 oz BMI 29.0 BP 134/77 Blood Pressure Location Lt brachial Position Sitting Pulse 104 H Intake Visit Reasons: PT request/abd bloating after eating Intake Note: Aldo presents in the office as a follow up for bloating after eating. CC: Constipation and everything he eats he feels like his stomach is bloated. Provider Relations Specialist Required: Yes Provider Relations Specialist Name: Herson Espinal166 Allergies ibuprofen [From Motrin] Allergy (Verified 02/07/23 13:42) Rash HPI PT request/abd bloating after eating HPI Details Assessment & Plan (1) GERD (gastroesophageal reflux disease): ?Code(s): K21.9 - Gastro-esophageal reflux disease without esophagiti Jordanian #LIve S He says that his GI medications continue to work well for him. He says that he prepped, but since I didn't get the papers in the mail so they didn't do the colonoscopy. This is confusing to me until I do a little research into the chart. Apparently there was also confusion re: cardiac clearance, he was to have a stress test and echo via Dr. Luque, but this never happened. I ask him to go and schedule a follow up with them to have this attended to. I walked him over to the cardiac pot and get him scheduled with a follow-up with Dr. Luque so that these tests can be attended to.? In the meantime he continues on his Linzess 290 micro g with good control of his constipation and has bisacodyl as a backup, he is on Creon for his bloating which she continues, omeprazole in the morning and famotidine at night with good control of his GERD, and also has Colace and simethicone.? He remains satisfied with this regimen and I will renew all the medications.? At this point I will see him after the colonoscopy since this likely will recur for 6 months or even longer.? (2) Chronic idiopathic constipation: ?Code(s): K59.04 - Chronic idiopathic constipation ? ? ? Medications: New peg 3350-electroly ubaldo 236-22.74-6.74 -5.86 gram (Golyt josephine) ?? until feca l effluent is angelina r; do not exceed a total volume of 2 ,000 mL 240 mL? PO Q10M 1 day 4,000 mL 0RF Z12.11 - Encounter for screening for malignant neoplas m of colon ? bisacodyl (Dulcola x (bisacodyl)) 10 mg (2 x 5 mg) P O BEDTIME 2 days 4 tabs 0RF ? ? Refilled famotidine (Pepcid ) 40 mg? PO BEDTIME 30 tabs 6RF ? ? linaclotide (Linze ss) 290 mcg? PO QAM 30 caps 6RF ? ? omeprazole 40 mg? PO DAILY 30 days 30 caps 6RF D ? ? murgju-cpcoawcr-yo ylase 24,000-76,00 0 -120,000 unit (C reon) ?? administe r with meals and/o r snacks 1 cap? PO QID 30 d ays 120 caps 6RF K58.9 - Irritable bowel syndrome wit hout diarrhea ? COLONOSCOPY RESCHEDULED TO 01/24/2023 BIOPSY TODAYS VISIT Jordanian #[id number], Alma He tells me that his stomach has been getting very hard and he feels a burning. HE was seen at [facility] and they did an xray (not available to me) and he was told I had a lot of air in there. He continues on the Linzess 290, but he is not moving his bowels well, he will go 3 days w/o any BM. He also has a lot of left sided pain and pressure. He is not eating well. He had a recent normal TSH and abd US so this is not ascites or thyroid dysfunction. Review of the meds reveals that he does not have the bisacodyl as I thought, so he was just taking the LInzess. I will resend this but also advise him that he may need to buy this OTC depending on insruance. I am also sending simethicone. I write out all instructions in Jordanian using Google Translate. IF we determine that Fat is the problem then he will need to see if his PCP wants to send him to [facility]. ROV 2 weeks. REPLACED BY [facility] Medical History Viral syndrome History of COVID-19 Leukocytosis Hyperlipidemia Personal history of nicotine dependence Back pain Arthritis Anxiety and depression Asthma History of kidney stones Chronic abdominal pain Tubular adenoma of colon (~2019) Asthma-COPD overlap syndrome Osteoporosis (~2001) Irritable bowel syndrome GERD (gastroesophageal reflux disease) COPD (chronic obstructive pulmonary disease) HTN (hypertension) Surgical History History of bilateral hip replacements History of colonoscopy with polypectomy (~2020) History of colonoscopy (~2005) History of surgery on right wrist (~2014) History of hip surgery (~2001) S/P extracorporeal shock wave therapy (~2013) History of hydrocelectomy Shoulder symptoms with history of shoulder arthroplasty Family History Father No problems noted. Mother No problems noted. Son No problems noted. Daughter No problems noted. Social History Alcohol intake: unknown Patient Tobacco Use Status: Current everyday Tobacco user Tobacco use type: Cigarette Cigarette Packs Per Day: 0.5 Cigarettes Per Day: 7 Years Smoked: (onset 14yo, 1/2-3/4ppd x 37yrs, 23pyh) Second Hand Smoke Exposure: No Advance Directives Date on File: 05/30/21 service: No Current occupational status: disabled Review of Systems Const Denies fatigue, Denies fever(s), Denies night sweats, Denies poor appetite and Denies weight loss ENT Reports Normal hearing present, Denies dental pain, Denies dysphagia, Denies hearing loss, Denies mouth pain, Denies odynophagia, Denies throat swelling, Denies tongue swelling and Reports other (Dentition adequate) Card Reports no additional complaints Resp Reports no additional complaints GI Reports abdominal pain, Denies melena, Reports bloating, Denies hematochezia, Reports constipation, Denies GI cramping, Denies dysphagia, Denies excessive flatus, Denies early satiety, Reports heartburn, Denies diarrhea, Denies nausea, Denies odynophagia, Denies vomiting and Denies hematemesis Skin/Breast Denies pruritus, Denies lesions, Denies rash and Denies jaundice Neuro Reports Normal hearing present and Denies Abnormal speech present Endo Denies fatigue Aller/Immun Denies throat swelling and Denies tongue swelling Physical Exam Vital Signs: Last Vital Signs Pulse 104 H 01/11/23 12:49 BP 134/77 01/11/23 12:49 BMI result Body Mass Index 29.0 Const General: cooperative, no acute distress, well developed and well groomed Nutritional Appearance: well nourished and overweight Orientation/consciousness: oriented to person, oriented to place and oriented to time Limitations: language barrier HEENT Head: Yes normocephalic and Yes atraumatic Eyes General: appearance normal, both eyes and all related structures Pupils: Equal, round and reactive pupils present Neck Neck: Yes normal visual inspection and Yes no lymphadenopathy Thyroid: Thyroid normal Resp Effort & Inspection: normal respiratory effort and able to speak in complete sentences Auscultation: clear to auscultation bilaterally Cardio Rate: regular rate Rhythm: regular rhythm Heart sounds: Normal, physiologic split S2 sound present Peripheral pulses: radial pulses present and posterior tibial pulses present GI Inspection: Yes distended, No Abdominal panniculus present and Yes obesity Palpation (GI): Soft to palpation, nontender, no guarding, not rigid and No hepatosplenomegaly present Percussion: Yes normal to percussion Auscultation: normal bowel sounds Rectal Exam - Male: Yes deferred Skin General skin exam: no rashes or lesions noted, turgor normal, skin not dry, no jaundice, No spider nevi and no striae Rashes: no rashes Nails: normal Neuro General: oriented to person, oriented to place and oriented to time Cranial nerves: Yes Equal, round and reactive pupils present and Yes Normal hearing present Speech: No Abnormal speech present Extrem General: Yes normal to inspection, No clubbing, No cyanosis and No edema Psych Appearance: grossly normal and well kempt Mental Status: mental status grossly normal Speech and movement: Normal speech and movement present Affect: normal affect Attitude: cooperative Thought process: Normal thought process present and not confabulating Thought content: Normal thought content present Insight: Limited insight present (Psych) Judgement: Limited judgement present (Psych) Assessment & Plan Assessment & Plan (1) GERD (gastroesophageal reflux disease): Code(s): K21.9 - Gastro-esophageal reflux disease without esophagitis (2) Chronic idiopathic constipation: Code(s): K59.04 - Chronic idiopathic constipation (3) Abdominal bloating: Code(s): R14.0 - Abdominal distension (gaseous) (4) Irritable bowel syndrome: Code(s): K58.9 - Irritable bowel syndrome without diarrhea (5) Tubular adenoma of colon: Onset Date: ~2019 Comment: 2022= 2 polyps repeat in 5 years: 2020=multiple large polyps and poor prep, was to be repeated in 6-12 months but pt keeps cancelling. Code(s): D12.6 - Benign neoplasm of colon, unspecified Plan Jordanian #[id number], Alma He tells me that his stomach has been getting very hard and he feels a burning. HE was seen at [facility] and they did an xray (not available to me) and he was told I had a lot of air in there. He continues on the Linzess 290, but he is not moving his bowels well, he will go 3 days w/o any BM. He also has a lot of left sided pain and pressure. He is not eating well. He had a recent normal TSH and abd US so this is not ascites or thyroid dysfunction. Review of the meds reveals that he does not have the bisacodyl as I thought, so he was just taking the LInzess. I will resend this but also advise him that he may need to buy this OTC depending on insurance. I am also sending simethicone. I write out all instructions in Jordanian using Google Translate. IF we determine that Fat is the problem then he will need to see if his PCP wants to send him to [facility]. He continues on omeprazole in the morning and famotidine at night for his GERD and of no he is on alendronate which can exacerbate GERD. ROV 2 weeks. Medications: New simethicone after meals 180 mg PO QID 120 caps 3RF 30 days Changed From bisacodyl 10 mg (2 x 5 mg) PO BEDTIME 2 days 4 tabs 0RF K59.04 - Chronic idiopathic constipation To bisacodyl (Dulcolax (bisacodyl)) 10 mg (2 x 5 mg) PO BEDTIME 60 tabs 6RF 30 days K59.04 - Chronic idiopathic constipation Patient Instructions: Contin?e con LInzess todas las ma?anas con un vaso lleno de agua. Tambi?n agrego tabletas de bisacodilo 2 por la noche y warren pastilla para gases llamada simeticona para ayudar a executive admin el gas. Es posible que tengas que comprar simeticona y bisacodilo sin receta si el seguro no los cubre, juju no son caros. Quiero verte en 2 semanas para becky c?mo est?s. Quality Reporting (2019) Adult ([facility] 138/05/10/68) Smoking risk assessment performed?: Yes Patient Tobacco Use Status: Current everyday Tobacco user Coding Level of Care Code Est Pt Level 3 (50712) Diagnoses GERD (gastroesophageal reflux disease) K21.9 Chronic idiopathic constipation K59.04 Abdominal bloating R14.0 Irritable bowel syndrome K58.9 Tubular adenoma of colon D12.6
[2023-01-11 12:49] VITALS: BP 134/77; PULSE 104; BMI 29.0
== END 2023-01-11 13:44 | disposition home or self-care (01) ==
PROVIDERS: PCP Student in an Organized Health Care Education/Training Program; Visit Provider Nurse Practitioner
DX: K21.9 Gastro-esophageal reflux disease without esophagitis (principal); K59.04 Chronic idiopathic constipation; R14.0 Abdominal distension (gaseous); K58.9 Irritable bowel syndrome, unspecified; D12.6 Benign neoplasm of colon, unspecified
CPT/HCPCS: 99213

== ENCOUNTER → 2023-01-11 12:28 | Outpatient (BNVA) | payer MEDICAID, SELFPAY | PROVIDERS: PCP Student in an Organized Health Care Education/Training Program; Visit Provider Nurse Practitioner | DX: R14.0 Abdominal distension (gaseous) (principal); K21.9 Gastro-esophageal reflux disease without esophagitis; K59.04 Chronic idiopathic constipation; K58.9 Irritable bowel syndrome, unspecified; D12.6 Benign neoplasm of colon, unspecified | CPT/HCPCS: 99212 ==

== ENCOUNTER 2023-01-22 10:07 | Outpatient (AMB) | payer MEDICAID, SELFPAY ==
[2023-01-22 10:08] VITALS: BP 134/82; PULSE 99; BMI 25.4
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
[2023-01-22 10:24] LABS: Glucose, Whole Blood 162 mg/dL (60-115)
== END 2023-01-22 11:07 | disposition home or self-care (01) ==
PROVIDERS: PCP Student in an Organized Health Care Education/Training Program; Visit Provider Internal Medicine Endocrinology, Diabetes & Metabolism
DX: M81.0 Age-related osteoporosis without current pathological fracture (principal)
CPT/HCPCS: 99204

== ENCOUNTER → 2023-01-22 10:07 | Outpatient (BNVA) | payer MEDICAID, SELFPAY | PROVIDERS: PCP Student in an Organized Health Care Education/Training Program; Visit Provider Internal Medicine Endocrinology, Diabetes & Metabolism | DX: M81.0 Age-related osteoporosis without current pathological fracture (principal) | CPT/HCPCS: 82947; 99202 ==

== ENCOUNTER 2023-01-24 09:58 | Day surgery (SDC) | payer MEDICAID, SELFPAY ==
[2023-01-22 10:49] VITALS: BMI 25.4
--- NOTE | 2023-01-23 09:45 | P.CONAN_ITS ---
Documented by User: Ronit Oden NP 01/23/23 09:46 HPI - Anesthesia Eval Consult details Narrative: 52yo M for Colonoscopy [facility] Active Problems Active Problems: All Active Problems (Updated 01/11/23 @ 12:34 by DELROY Ramirez) Cervical myofascial strain (Acute) Cervical spondylosis (Acute) Compression fracture of body of thoracic vertebra (Acute) Viral syndrome (Acute) Nicotine dependence, cigarettes, uncomplicated (Acute) Coronary artery calcification seen on CT scan (Acute) Precordial chest pain (Acute) Asthma-COPD overlap syndrome (Acute) Asthma (Acute) Pulmonary nodules (Acute) Personal history of nicotine dependence (Acute) HTN (hypertension) (Acute) Hyperlipidemia (Acute) Leukocytosis (Acute) Osteoporosis (Acute ~2001) GERD (gastroesophageal reflux disease) (Acute) Irritable bowel syndrome (Acute) Chronic idiopathic constipation (Acute) Tubular adenoma of colon (Acute ~2019) Abdominal bloating (Acute) Chronic abdominal pain (Acute) Lump in the abdomen (Acute) Balanitis (Acute) Penile discharge (Acute) Pain with urination (Acute) Abscess (Acute) Cellulitis and abscess of upper extremity (Acute) Olecranon bursitis of right elbow (Acute) Past Medical History Medical History Viral syndrome History of COVID-19 Leukocytosis Hyperlipidemia Personal history of nicotine dependence Back pain Arthritis Anxiety and depression Asthma History of kidney stones Chronic abdominal pain Tubular adenoma of colon (~2019) Asthma-COPD overlap syndrome Osteoporosis (~2001) Irritable bowel syndrome GERD (gastroesophageal reflux disease) COPD (chronic obstructive pulmonary disease) HTN (hypertension) Family History Family History Father No problems noted. Mother No problems noted. Son No problems noted. Daughter No problems noted. Surgical History Surgical History History of bilateral hip replacements History of colonoscopy with polypectomy (~2020) History of colonoscopy (~2005) History of surgery on right wrist (~2014) History of hip surgery (~2001) S/P extracorporeal shock wave therapy (~2013) History of hydrocelectomy Shoulder symptoms with history of shoulder arthroplasty Social History Social History Alcohol intake: unknown Patient Tobacco Use Status: Current everyday Tobacco user Tobacco use type: Cigarette Cigarette Packs Per Day: 0.5 Cigarettes Per Day: 7 Years Smoked: (onset 14yo, 1/2-3/4ppd x 37yrs, 23pyh) Second Hand Smoke Exposure: No Use of substances other than those prescribed or required for medical reasons: No Are you DNR?: No Advance Directives: No Advance Directives Information Provided: Yes Advance Directives Date on File: 05/30/21 service: No Current occupational status: disabled Meds Allergies Allergy/AdvReac Type Severity Reaction Status Date / Time ibuprofen [From Motrin] Allergy Rash Verified 01/22/23 10:15 Home Medications Medication Instructions Recorded Confirmed Last Taken Type amlodipine 5 mg tablet 5 mg PO DAILY 05/28/21 09/15/22 Unknown History atorvastatin 10 mg tablet 10 mg PO BEDTIME 05/28/21 09/15/22 Unknown History baclofen 20 mg tablet 20 mg PO TID PRN muscle spasm 05/28/21 09/15/22 Unknown History calcium carbonate 500 mg-vitamin 1 tab PO BID 05/28/21 09/15/22 Unknown History D3 5 mcg (200 unit) tablet (Oyster Shell Calcium-Vitamin D3) cholecalciferol (vitamin D3) 50 2,000 unit PO DAILY 05/28/21 09/15/22 Unknown History mcg (2,000 unit) tablet metoprolol succinate 25 mg 25 mg PO DAILY 05/28/21 09/15/22 09/06/22 07:00 History tablet,extended release 24 hr clotrimazole 1 % topical cream appl topical 07/26/21 09/15/22 Unknown History nebulizers 06/14/22 09/04/22 Unknown History alendronate 70 mg tablet mg PO 01/11/23 Unknown History codeine 10 mg-guaifenesin 100 mg/5 10 ml PO Q6H PRN cough 01/11/23 Unknown History mL oral liquid ergocalciferol (vitamin D2) 1,250 1,250 mcg PO QWEEK 01/11/23 Unknown History mcg (50,000 unit) capsule insulin glargine 100 unit/mL (3 7 unit subcut BEDTIME 01/11/23 Unknown History mL) subcutaneous pen (Lantus Solostar U-100 Insulin) losartan 25 mg tablet 25 mg PO QAM 01/11/23 Unknown History metformin 1,000 mg tablet 1,000 mg PO 01/11/23 Unknown History montelukast 10 mg tablet 10 mg PO BEDTIME 01/11/23 Unknown History roflumilast 250 mcg tablet 250 mcg PO DAILY 01/11/23 Unknown History (Daliresp) sitagliptin phosphate 25 mg tablet 25 mg PO QAM 01/11/23 Unknown History (Januvia) zafirlukast 20 mg tablet 20 mg PO BID 01/11/23 Unknown History Exam Exam Date and Time: January 23, 2023 0945 Height,Weight and Vital Signs: Height 5 ft 7 in Weight 73.6 kg Pertinent Lab Results Pertinent Lab Results: Laboratory Tests 01/07/23 19:12 WBC 19.7 H Hgb 15.3 Hct 46.4 Plt Count 348 Sodium 140 Potassium 4.0 Chloride 101 Carbon Dioxide 23 BUN 15 Creatinine 0.88 Assessment and Plan Assessment Anesthesia Assessment: Chart Reviewed Documented by User: Hossein Lamar MD 01/24/23 11:03 [facility] Past Medical History Medical History Viral syndrome History of COVID-19 Leukocytosis Hyperlipidemia Personal history of nicotine dependence Back pain Arthritis Anxiety and depression Asthma History of kidney stones Chronic abdominal pain Tubular adenoma of colon (~2019) Asthma-COPD overlap syndrome Osteoporosis (~2001) Irritable bowel syndrome GERD (gastroesophageal reflux disease) COPD (chronic obstructive pulmonary disease) HTN (hypertension) Family History Family History Father No problems noted. Mother No problems noted. Son No problems noted. Daughter No problems noted. Family history of problems with anesthesia: No Surgical History Surgical History History of bilateral hip replacements History of colonoscopy with polypectomy (~2020) History of colonoscopy (~2005) History of surgery on right wrist (~2014) History of hip surgery (~2001) S/P extracorporeal shock wave therapy (~2013) History of hydrocelectomy Shoulder symptoms with history of shoulder arthroplasty History of Problems with Anesthesia: No Social History Social History Alcohol intake: unknown Patient Tobacco Use Status: Current everyday Tobacco user Tobacco use type: Cigarette Cigarette Packs Per Day: 0.5 Cigarettes Per Day: 7 Years Smoked: (onset 14yo, 1/2-3/4ppd x 37yrs, 23pyh) Second Hand Smoke Exposure: No Use of substances other than those prescribed or required for medical reasons: No Are you DNR?: No Advance Directives: No Advance Directives Information Provided: Yes Advance Directives Date on File: 05/30/21 service: No Current occupational status: disabled Meds Allergies Allergy/AdvReac Type Severity Reaction Status Date / Time ibuprofen [From Motrin] Allergy Rash Verified 01/22/23 10:15 Home Medications Medication Instructions Recorded Confirmed Last Taken Type amlodipine 5 mg tablet 5 mg PO DAILY 05/28/21 09/15/22 Unknown History atorvastatin 10 mg tablet 10 mg PO BEDTIME 05/28/21 09/15/22 Unknown History baclofen 20 mg tablet 20 mg PO TID PRN muscle spasm 05/28/21 09/15/22 Unknown History calcium carbonate 500 mg-vitamin 1 tab PO BID 05/28/21 09/15/22 Unknown History D3 5 mcg (200 unit) tablet (Oyster Shell Calcium-Vitamin D3) cholecalciferol (vitamin D3) 50 2,000 unit PO DAILY 05/28/21 09/15/22 Unknown History mcg (2,000 unit) tablet metoprolol succinate 25 mg 25 mg PO DAILY 05/28/21 09/15/22 09/06/22 07:00 History tablet,extended release 24 hr clotrimazole 1 % topical cream appl topical 07/26/21 09/15/22 Unknown History nebulizers 06/14/22 09/04/22 Unknown History alendronate 70 mg tablet mg PO 01/11/23 Unknown History codeine 10 mg-guaifenesin 100 mg/5 10 ml PO Q6H PRN cough 01/11/23 Unknown History mL oral liquid ergocalciferol (vitamin D2) 1,250 1,250 mcg PO QWEEK 01/11/23 Unknown History mcg (50,000 unit) capsule insulin glargine 100 unit/mL (3 7 unit subcut BEDTIME 01/11/23 Unknown History mL) subcutaneous pen (Lantus Solostar U-100 Insulin) losartan 25 mg tablet 25 mg PO QAM 01/11/23 Unknown History metformin 1,000 mg tablet 1,000 mg PO 01/11/23 Unknown History montelukast 10 mg tablet 10 mg PO BEDTIME 01/11/23 Unknown History roflumilast 250 mcg tablet 250 mcg PO DAILY 01/11/23 Unknown History (Daliresp) sitagliptin phosphate 25 mg tablet 25 mg PO QAM 01/11/23 Unknown History (Januvia) zafirlukast 20 mg tablet 20 mg PO BID 01/11/23 Unknown History Exam Airway Mallampati Class: II TM Dist: <=3cm Neck ROM: Full Loose/Missing/Broken Teeth: No Heart: ok Lungs: ok Assessment and Plan Assessment Anesthesia Assessment: Anesthesia Plan Discussed Final Anesthetic Review Family History of Problems with Anesthesia: No History of Problems with Anesthesia: No NPO: Yes ASA Class: III Final Preanesthetic Review: No Changes in Pt Med Stat, Meds/Allgs Chart Reviewed, Consent Obtained/Reviewed and Anes Risks/Benef Reviewed Patient Risk: Intermediate Procedure Risk: Low Anesthetic Plan Anesthetic Plan: MAC: and Agree w/ Assess. and Plan Disposition: Standard PACU
[2023-01-24 10:23] VITALS: BMI 25.4
--- NOTE | 2023-01-24 10:31 | MHC.SHP ---
Pre-Procedural Eval Section A Date of Service: 01/24/23 Section B Chief Complaint: hx of colon polyps Relevant Family History (Specify if Yes): No Relevant Social History: Tobacco Use Present Medications: see Short Stay Collaborative assessment Medical History: Significant History (Viral syndrome History of COVID-19 Leukocytosis Hyperlipidemia Personal history of nicotine dependence Back pain Arthritis Anxiety and depression Asthma History of kidney stones Chronic abdominal pain Tubular adenoma of colon (~2019) Asthma-COPD overlap syndrome Osteoporosis (~2001) Irritable bowel ) History of Previous Operations: Relevant previous surgery/procedure and date(s) (History of bilateral hip replacements History of colonoscopy with polypectomy (~2020) History of colonoscopy (~2005) History of surgery on right wrist (~2014) History of hip surgery (~2001) S/P extracorporeal shock wave therapy (~2013) History of hydrocelectomy Shoulder symptoms with history of shou) Allergies: Allergies Allergy/AdvReac Type Severity Reaction Status Date / Time ibuprofen [From Motrin] Allergy Rash Verified 01/22/23 10:15 Review of Systems Sugical H&P ROS: Negative: Constitution, Cardiovascular, Respiratory, Neurological, Psychiatric, Hem-Onc, Allergic/Immunologic, Gastrointestinal, Genitourinary, Musculoskeletal, Integumentary, Endocrine and Eyes/Ears/Nose/Throat Exam Surgical H&P Exam: Normal: HEENT, Normal: Heart, Normal: Lungs, Normal: Extremities, Normal: Abdomen, Normal: Skin and Normal: Neurological Plan Diagnosis/Plan: Unchanged I have reviewed the history and physical and performed a pertinent physical examination on my patient. No changes have occurred unless specified. Time Spent With Patient Time: Total time managing care of this patient today ____ minutes.
[2023-01-24 10:51] VITALS: BP 126/88; PULSE 93; RESP 18; TEMP 36.6; O2SAT 98
[2023-01-24 10:54] LABS: Glucose, Whole Blood 144 mg/dL (60-115)
--- NOTE | 2023-01-24 11:06 | PC.NURSE ---
Patient now states via Medical Affairs Director that he had a hamburger at 3:30 pm yesterday then liquids po thereafter. Completed colon prep with liquid results, light yellow and clear.
[2023-01-24] MEDS: Lactated Ringers 1,000 ML 100 ML IVCONT (11:08)
--- NOTE | 2023-01-24 11:43 | P.OP_ITS ---
Operative Note Operative Note Date of Service: 01/24/23 Narrative: Operative Information Procedure Description: Colonoscopy Indication: screening Anesthesia: MAC COLONOSCOPY Instrument: Olympus variable stiffness pediatric scope 190L Colonoscopy Monitoring: Vital signs and clinical assessment, continuous EKG monitoring, Pulse oximetry, Carbon Dioxide monitoring and blood pressure monitoring were done throughout the procedure. Colon withdrawal time was 13 minutes. Procedure: The patient was placed in the left lateral decubitis position and pre-procedure medications were administered. After a digital rectal examination of the ano-rectum, the video colonoscope was inserted into the rectum and advanced through the colon to the cecum/TI. The colonoscope was slowly withdrawn in a retrograde panoramic fashion and the colon mucosa was carefully examined including a retroflexed view of the rectum. Findings and interventions are described below. Procedure Difficulty: moderate due to poor prep Findings: Terminal Ileum-not intubated Cecum:normal Ascending Colon: x 4 sessile polyps 6-9 mm removed with cold snare, x2 of these were lifted with eleview injection Transverse Colon -normal Descending Colon:normal Sigmoid Colon:mild diverticulosis Rectum: Retroflexion with small internal hemorrhoids, grade I Anorectum - normal Colon preparation: [place] Bowel Preparation Scale Right colon; 1 Transverse colon: 1-2 Left colon; 1 (0 = Unprepared colon segment with mucosa not seen due to solid stool that cannot be cleared. 1 = Portion of mucosa of the colon segment seen, but other areas of the colon segment not well seen due to staining, residual stool and/or opaque liquid. 2 = Minor amount of residual staining, small fragments of stool and/or opaque liquid, but mucosa of colon segment seen well. 3 = Entire mucosa of colon segment seen well with no residual staining, small fragments of stool or opaque liquid) Impression and Post Procedure Diagnosis: poor prep polyps internal hemorrhoids diverticular disease Plan: High fiber diet leaflet Avoid straining at stool, epsom salts and sitz bath, anusol supps or cream Repeat Colonoscopy in 3-6 month or earlier if clinically indicated-complaince to prep next time Above findings were reviewed with the patient and relevant handouts were provided if indicated.
[2023-01-24 11:53] VITALS: BP 99/64; PULSE 98; RESP 15; TEMP 36.7; O2SAT 97
[2023-01-24 12:08] VITALS: BP 114/74; PULSE 86; RESP 15; O2SAT 96
[2023-01-24 12:23] VITALS: BP 118/79; PULSE 83; RESP 16; TEMP 36.7; O2SAT 95
== END 2023-01-24 14:33 | disposition home or self-care (01) ==
PROVIDERS: PCP Internal Medicine; Visit Provider Internal Medicine Gastroenterology
PROC: 0DJD8ZZ Inspection of Lower Intestinal Tract, Via Natural or Artificial Opening Endoscopic (ICD-10-PCS; CPT 45378; principal; 2023-01-24 12:00)
DX: Z12.11 Encounter for screening for malignant neoplasm of colon (principal); Z86.010 Personal history of colon polyps; D12.2 Benign neoplasm of ascending colon; K57.30 Diverticulosis of large intestine without perforation or abscess without bleeding; K64.0 First degree hemorrhoids; K59.04 Chronic idiopathic constipation; K58.9 Irritable bowel syndrome, unspecified; D72.829 Elevated white blood cell count, unspecified; B34.9 Viral infection, unspecified; G89.29 Other chronic pain; R10.9 Unspecified abdominal pain; I10 Essential (primary) hypertension; E78.5 Hyperlipidemia, unspecified; J44.9 Chronic obstructive pulmonary disease, unspecified; M19.90 Unspecified osteoarthritis, unspecified site; M81.0 Age-related osteoporosis without current pathological fracture; F41.8 Other specified anxiety disorders; Z87.442 Personal history of urinary calculi; Z79.899 Other long term (current) drug therapy; Z88.8 Allergy status to other drugs, medicaments and biological substances; F17.210 Nicotine dependence, cigarettes, uncomplicated; Z86.16 Personal history of COVID-19; Z98.890 Other specified postprocedural states
CPT/HCPCS: 45385; 45381; 82947; 88305

== ENCOUNTER → 2023-01-24 09:58 | Outpatient (BNV) | payer MEDICAID, SELFPAY | PROVIDERS: PCP Internal Medicine; Visit Provider Internal Medicine Gastroenterology | DX: Z12.11 Encounter for screening for malignant neoplasm of colon (principal); D12.2 Benign neoplasm of ascending colon; K57.30 Diverticulosis of large intestine without perforation or abscess without bleeding; Z91.199 Patient's noncompliance with other medical treatment and regimen due to unspecified reason | CPT/HCPCS: 45381; 45385 ==

== ENCOUNTER 2023-01-25 17:49 | Outpatient (REF) | payer MEDICAID, SELFPAY | END 2023-01-25 17:50 | disposition home or self-care (01) | LOC: HO.HHCLNP 17:49 | PROVIDERS: Visit Provider Student in an Organized Health Care Education/Training Program | DX: M80.08XS Age-related osteoporosis with current pathological fracture, vertebra(e), sequela (principal) | CPT/HCPCS: 80307 ==

== ENCOUNTER 2023-02-07 13:29 | Outpatient (AMB) | payer MEDICAID, SELFPAY ==
--- NOTE | 2023-02-07 13:31 | MHC.OFFVIS ---
Intake Vital Signs 02/07/23 13:34 Height 5 ft 2 in Weight 163 lb 2.273 oz BMI 29.8 BP 140/96 H Blood Pressure Location Lt brachial Position Sitting Pulse 118 H Intake Visit Reasons: s/p colon Meza Intake Note: Aldo presents in the office today in follow up of colonoscopy. CC: Patient underwent colonoscopy on 01/24/23. He reports he has been having bilateral ribs pain for about one year. 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 HE was seen at [facility] and they did an xray (not available to me) and he was told I had a lot of air in there. He continues ont he Linzess 290, but he is not moving his bowels well, he will go 3 days w/o any BM. He also has a lot of left sided pain and pressure. He is not eating well. He had a recent normal TSH and abd US so this is not ascites or thyroid dysfunction. Review of the meds reveals taht he does not have the bisacodyl as I thought, so he was just taking the LInzess. I will resend this but also advise him that he may need to buy this OTC depending on insruance. I am also sending simethicone. I write out all instructions in [place] using Google Translate. IF we determine that Fat is the problem then he will need to see if his PCP wants to send him to [facility]. ROV 2 weeks. Assessment & Plan (1) GERD (gastroesophageal reflux disease): Code(s): K21.9 - Gastro-esophageal reflux disease without esophagitis (2) Chronic idiopathic constipation: Code(s): K59.04 - Chronic idiopathic constipation (3) Abdominal bloating: Code(s): R14.0 - Abdominal distension (gaseous) (4) Irritable bowel syndrome: Code(s): K58.9 - Irritable bowel syndrome without diarrhea (5) Tubular adenoma of colon: Onset Date: ~2019 Comment: 2020=multiple large polyps and poor prep, was to be repeated in 6-12 months but pt keeps cancelling. Code(s): D12.6 - Benign neoplasm of colon, unspecified Medications: New simethicone aft er meals 180 mg PO QID 30 days 120 caps 3RF Changed From bisacodyl (Dulcola x (bisacodyl)) 10 mg (2 x 5 mg) P O BEDTIME 2 days 4 tabs 0RF K59.04 - Chronic i diopathic constipa tion To bisacodyl (Dulcola x (bisacodyl)) 10 mg (2 x 5 mg) P O BEDTIME 30 days 60 tabs 6RF K59.04 - Chronic i diopathic constipa tion Patient Instructions: Contin?e con LInzess todas las ma?anas con un vaso lleno de agua. Tambi?n agrego tabletas de bisacodilo 2 por la noche y warren pastilla para gases llamada simeticona para ayudar a gizzard skin remover el gas. Es posible que tengas que comprar simeticona y bisacodilo sin receta si el seguro no los cubre, juju no son caros. Quiero verte en 2 semanas para becky c?mo est?s. Follow LInzess every morning with a full glass of water. I also add bisacodyl 2 tablets at night and a gas pill called simethicone to help move the gas. You may have to buy simethicone and bisacodyl over the counter if insurance doesn't cover them, but they aren't expensive. I want to see you in 2 weeks to see how you are. COLONOSCOPY 01/24/23 Findings: Terminal Ileum-not intubated Cecum:normal Ascending Colon: x 4 sessile polyps 6-9 mm removed with cold snare, x2 of these were lifted with eleview injection Transverse Colon -normal Descending Colon:normal Sigmoid Colon:mild diverticulosis Rectum: Retroflexion with small internal hemorrhoids, grade I Anorectum - normal Impression and Post Procedure Diagnosis: poor prep polyps internal hemorrhoids diverticular disease Plan: High fiber diet leaflet Avoid straining at stool, epsom salts and sitz bath, anusol supps or cream Repeat Colonoscopy in 3-6 month or earlier if clinically indicated-complaince to prep next time BIOPSY Received: 01/24/23 Diagnosis Colon, ascending, polypectomies: - Fragments of tubular adenomata; negative for high-grade dysplasia or carcinoma. - Fragments of sessile serrated lesion/polyp(s); negative for cytologic dysplasia TODAYS VISIT [place] #Alma Jain The needs to repeated in 6 mos r/t poor prep and the of tubular. The procedure was well tolerated. The results were explained and the patient is agreeable to the follow-up interval as stated. The bowel pattern has returned to normal. Education was provided to tell any 1st degree relatives about their findings to be sure that they are screened by age 45. Educated that they will be put on a recall list when it is time for their repeat scope but should they move out of state or away from the hospital they will need to remember along with their primary to repeat the procedure in a timely fashion to avoid any adverse complications. He is moving his bowels better, but still having days of extreme bloating. BUT he is only taking 1 bisacodyl qhs and I had wanted him to take 2. He is educated. I think he is having incomplete evacuation. He also is taking the simethicone but is not finding that it helps with the bloating. This may be, again, to incomplete evacuation. HOWEVER, further conversation uncovers that he is asking about liposuction, so we are again back to the question of adipose tissue vs bloating of the internal GI tract. He wants liposuction, but while this could be possible, it would likely not be covered by his insurance. ROV 5 weeks. [facility] Medical History Viral syndrome History of COVID-19 Leukocytosis Hyperlipidemia Personal history of nicotine dependence Back pain Arthritis Anxiety and depression Asthma History of kidney stones Chronic abdominal pain Tubular adenoma of colon (~2019) Asthma-COPD overlap syndrome Osteoporosis (~2001) Irritable bowel syndrome GERD (gastroesophageal reflux disease) COPD (chronic obstructive pulmonary disease) HTN (hypertension) Surgical History History of bilateral hip replacements History of colonoscopy with polypectomy (~2020) History of colonoscopy (~2005) History of surgery on right wrist (~2014) History of hip surgery (~2001) S/P extracorporeal shock wave therapy (~2013) History of hydrocelectomy Shoulder symptoms with history of shoulder arthroplasty Family History Father No problems noted. Mother No problems noted. Son No problems noted. Daughter No problems noted. Social History Unable to assess alcohol history related to: Unknown Alcohol intake: unknown Patient Tobacco Use Status: Current everyday Tobacco user Tobacco use type: Cigarette Cigarette Packs Per Day: 0.5 Cigarettes Per Day: 7 Years Smoked: (onset 14yo, 1/2-3/4ppd x 37yrs, 23pyh) Second Hand Smoke Exposure: No Advance Directives Date on File: 05/30/21 service: No Current occupational status: disabled Review of Systems Const Denies fatigue, Denies fever(s), Denies night sweats, Denies poor appetite and Denies weight loss ENT Reports Normal hearing present, Denies dental pain, Denies dysphagia, Denies hearing loss, Denies mouth pain, Denies odynophagia, Denies throat swelling, Denies tongue swelling and Reports other (Dentition adequate) Card Reports no additional complaints Resp Reports no additional complaints GI Denies abdominal pain, Denies melena, Reports bloating, Denies hematochezia, Reports constipation, Denies GI cramping, Denies dysphagia, Denies excessive flatus, Denies early satiety, Reports heartburn, Denies diarrhea, Denies nausea, Denies odynophagia, Denies vomiting and Denies hematemesis Skin/Breast Denies pruritus, Denies lesions, Denies rash and Denies jaundice Neuro Reports Normal hearing present and Denies Abnormal speech present Endo Denies fatigue Aller/Immun Denies throat swelling and Denies tongue swelling Physical Exam Vital Signs: Last Vital Signs Pulse 118 H 02/07/23 13:34 BP 140/96 H 02/07/23 13:34 BMI result Body Mass Index 29.8 Const General: cooperative, no acute distress, well developed and well groomed Nutritional Appearance: well nourished and overweight Orientation/consciousness: oriented to person, oriented to place and oriented to time Limitations: language barrier HEENT Head: Yes normocephalic and Yes atraumatic Eyes General: appearance normal, both eyes and all related structures Pupils: Equal, round and reactive pupils present Neck Neck: Yes normal visual inspection and Yes no lymphadenopathy Thyroid: Thyroid normal Resp Effort & Inspection: normal respiratory effort and able to speak in complete sentences Auscultation: clear to auscultation bilaterally Cardio Rate: regular rate Rhythm: regular rhythm Heart sounds: Normal, physiologic split S2 sound present Peripheral pulses: radial pulses present and posterior tibial pulses present GI Inspection: No distended, No Abdominal panniculus present and Yes obesity Palpation (GI): Soft to palpation, nontender, no guarding, not rigid and No hepatosplenomegaly present Percussion: Yes normal to percussion Auscultation: normal bowel sounds Rectal Exam - Male: Yes deferred Skin General skin exam: no rashes or lesions noted, turgor normal, skin not dry, no jaundice, No spider nevi and no striae Rashes: no rashes Nails: normal Neuro General: oriented to person, oriented to place and oriented to time Cranial nerves: Yes Equal, round and reactive pupils present and Yes Normal hearing present Speech: No Abnormal speech present Extrem General: Yes normal to inspection, No clubbing, No cyanosis and No edema Psych Appearance: grossly normal and well kempt Mental Status: mental status grossly normal Speech and movement: Normal speech and movement present Attitude: cooperative Thought process: Normal thought process present and not confabulating Thought content: Normal thought content present Insight: Limited insight present (Psych) Judgement: Limited judgement present (Psych) Results Reviewed Results Reviewed: COLONOSCOPY 01/24/23 Findings: Terminal Ileum-not intubated Cecum:normal Ascending Colon: x 4 sessile polyps 6-9 mm removed with cold snare, x2 of these were lifted with eleview injection Transverse Colon -normal Descending Colon:normal Sigmoid Colon:mild diverticulosis Rectum: Retroflexion with small internal hemorrhoids, grade I Anorectum - normal Impression and Post Procedure Diagnosis: poor prep polyps internal hemorrhoids diverticular disease Plan: High fiber diet leaflet Avoid straining at stool, epsom salts and sitz bath, anusol supps or cream Repeat Colonoscopy in 3-6 month or earlier if clinically indicated-complaince to prep next time BIOPSY Received: 01/24/23 Diagnosis Colon, ascending, polypectomies: - Fragments of tubular adenomata; negative for high-grade dysplasia or carcinoma. - Fragments of sessile serrated lesion/polyp(s); negative for cytologic dysplasia Assessment & Plan Assessment & Plan (1) Tubular adenoma of colon: Onset Date: ~2019 Comment: 2022= 2 polyps repeat in 5 years: 2020=multiple large polyps and poor prep, was to be repeated in 6-12 months but pt keeps cancelling. Code(s): D12.6 - Benign neoplasm of colon, unspecified (2) Early satiety: Code(s): R68.81 - Early satiety Plan [place] #Alma Live The needs to repeated in 6 mos r/t poor prep and the of tubular. The procedure was well tolerated. The results were explained and the patient is agreeable to the follow-up interval as stated. The bowel pattern has returned to normal. Education was provided to tell any 1st degree relatives about their findings to be sure that they are screened by age 45. Educated that they will be put on a recall list when it is time for their repeat scope but should they move out of state or away from the hospital they will need to remember along with their primary to repeat the procedure in a timely fashion to avoid any adverse complications. He is moving his bowels better, but still having days of extreme bloating. BUT he is only taking 1 bisacodyl qhs and I had wanted him to take 2. He is educated. I think he is having incomplete evacuation. He also is taking the simethicone but is not finding that it helps with the bloating. This may be, again, to incomplete evacuation. HOWEVER, further conversation uncovers that he is asking about liposuction, so we are again back to the question of adipose tissue vs bloating of the internal GI tract. He wants liposuction, but while this could be possible, it would likely not be covered by his insurance. AMINA 5 weeks. Orders: Orders NM gastric emptying study 02/07/23 R68.81 - Early satiety Colonoscopy - GI Use Only 02/07/23 Medications: New magnesium citrate 150 mL PO DAILY 300 mL 0RF 2 days Z12.11 - Encounter for screening for malignant neoplasm of colon peg 3350-electrolytes 236-22.74-6.74 -5.86 gram (Golytely) until fecal effluent is clear; do not exceed a total volume of 2,000 mL 240 mL PO Q10M 4,000 mL 0RF 1 day Z12.11 - Encounter for screening for malignant neoplasm of colon Patient Instructions: Aldo Breaux Fordoche dane medicamentos de la siguiente manera: 1. Linzess por la ma?jarad 2. 2 DOS bisacodilo antes de acostarse 3. simeticona antes de cada comida Me bell? un estudio de vaciado g?strico para becky si álvarez est?jeannie se est? vaciando correctamente. Quiero verte en 5 semanas. Quality Reporting (2019) Adult ([facility] ) Smoking risk assessment performed?: Yes Patient Tobacco Use Status: Current everyday Tobacco user Coding Level of Care Code Est Pt Level 3 (43482) Diagnoses Tubular adenoma of colon D12.6 Early satiety R68.81
[2023-02-07 13:34] VITALS: BP 140/96; PULSE 118; BMI 29.8
== END 2023-02-07 14:14 | disposition home or self-care (01) ==
PROVIDERS: PCP Internal Medicine; Visit Provider Nurse Practitioner
DX: D12.2 Benign neoplasm of ascending colon (principal); R68.81 Early satiety
CPT/HCPCS: 99213

== ENCOUNTER → 2023-02-07 13:29 | Outpatient (BNVA) | payer MEDICAID, SELFPAY | PROVIDERS: PCP Internal Medicine; Visit Provider Nurse Practitioner | DX: D12.6 Benign neoplasm of colon, unspecified (principal); R68.81 Early satiety | CPT/HCPCS: 99212 ==

== ENCOUNTER 2023-02-22 13:56 | Outpatient (REF) | payer MEDICAID, SELFPAY ==
--- NOTE | ~2023-02-22 | XR_ITS ---
EXAMINATION: XR KNEE, RIGHT CLINICAL INFORMATION: Right knee COMPARISON: Right knee x-rays on 08/30/2018 TECHNIQUE: Four views of the right knee. FINDINGS: BONES: Bony structures are intact. Persistent serpentine sclerotic lesion is seen in distal right femoral shaft. There is no focal bone destruction or periosteal reaction seen. JOINTS: Alignment of joints is normal. SOFT TISSUE: Right suprapatellar fat pad shows mild increase in density. No radiopaque foreign body or abnormal air collection is seen. XR/XR knee RT 3V IMPRESSION: 1. Unchanged serpentine sclerotic lesion in the distal right femoral shaft, compatible with stable bone infarct. 2. Possible interval development of mild right knee effusion.
== END 2023-02-22 13:57 | disposition home or self-care (01) ==
LOC: HO.XRAY 13:56
PROVIDERS: PCP Student in an Organized Health Care Education/Training Program; Visit Provider Student in an Organized Health Care Education/Training Program
DX: M17.11 Unilateral primary osteoarthritis, right knee (principal)
CPT/HCPCS: 73562

== ENCOUNTER 2023-02-28 08:50 | Outpatient (REF) | payer MEDICAID, SELFPAY ==
[2023-02-28 11:10] LABS: Prostate Specific Antigen 0.54 ng/mL (<0.05-4.0)
[2023-02-28 11:11] LABS: Vitamin D 25-OH Total 29.8 ng/mL (>30)
[2023-03-01 22:23] LABS: Prot Elec - Alpha1 0.4 g/dL (0.2-0.3); Prot Elec - Alpha2 0.9 g/dL (0.5-0.9); Prot Elec - Beta 1 0.4 g/dL (0.4-0.6); Prot Elec - Beta 2 0.5 g/dL (0.2-0.5); Prot Elec - Gamma 0.8 g/dL (0.8-1.7)
[2023-03-06 15:29] LABS: Testosterone, Free 65.7 pg/mL (35.0-155.0); Testosterone, Total 494 ng/dL (250-1100)
== END 2023-02-28 08:51 | disposition home or self-care (01) ==
LOC: HO.LAB 08:50
PROVIDERS: PCP Student in an Organized Health Care Education/Training Program; Visit Provider Internal Medicine Endocrinology, Diabetes & Metabolism
DX: Z12.5 Encounter for screening for malignant neoplasm of prostate (principal); M81.0 Age-related osteoporosis without current pathological fracture
CPT/HCPCS: 82306; 84100; 84153; 84165; 84402; 84403; 86335

== ENCOUNTER 2023-03-01 16:08 | Outpatient (REF) | payer MEDICAID, SELFPAY ==
[2023-03-02 16:42] LABS: Total Volume 24 Hour Urine 775 mL
[2023-03-02 18:45] LABS: Creatinine, 24Hr Urine 0.9 G/Day (1.0-2.0); Creatinine, mg/dL 113.74
[2023-03-05 19:53] LABS: Calcium, 24 Hr Urine 375 mg/24 h; Calcium/Creatinine Ratio 428 mg/g creat (30-210); Creatinine 24Hr Urine 0.88 g/24 h (0.50-2.15)
== END 2023-03-01 16:09 | disposition home or self-care (01) ==
LOC: HO.LNP 16:08
PROVIDERS: Visit Provider Internal Medicine Endocrinology, Diabetes & Metabolism
DX: M81.0 Age-related osteoporosis without current pathological fracture (principal)
CPT/HCPCS: 82340; 82570

== ENCOUNTER 2023-03-02 14:12 | Outpatient (AMB) | payer MEDICAID, SELFPAY ==
[2023-03-02 14:16] VITALS: BP 130/70; PULSE 107; O2SAT 94; BMI 30.4
--- NOTE | 2023-03-02 14:16 | MHC.OFFVIS ---
Intake Vital Signs 03/02/23 14:16 Height 5 ft 2 in Weight 166 lb BMI 30.4 BP 130/70 Blood Pressure Location Lt brachial Position Sitting Pulse 107 H Pulse Source Pulse Oximeter Pulse Oximetry (%) 94 Oxygen Delivery Method Room Air Intake Visit Reasons: COPD Intake Note: pt is here for follow up Allergies ibuprofen [From Motrin] Allergy (Verified 03/02/23 14:18) Rash HPI HPI Comments History of Present Illness Details The patient is a 53-year-old gentleman with known tobacco dependency since asthma COPD overlap syndrome. The patient continues to have significant shortness of breath and wheezing. Moderate severity. But, overall better. he has been on chronic steroids. He has not been able to go below 20 mg. he does have productive sputum, which is whitish in color. Associated with shortness of breath. He has gained some weight due to the prednisone. At this point the patient will be a good candidate for Daliresp. We also talked about smoking cessation and the importance to quit. He has been on Chantix and appears to be working. he is going to continue on Chantix at this time. 08/28/2022 the patient is here for pulmonary follow-up visit. Overall he is doing a little better from a respiratory status. However, patient developed some compression fractures. He has significant osteoporosis due to his chronic prednisone use. We tried decreasing his prednisone dose however, the patient has frequent exacerbations. He is also on chronic prednisone likely prednisone dependent. We did try Xolair but the patient did not want to take the sections. We can have him start Daliresp to see if this helps decrease the need for prednisone. However, really what is going to be most important for him to quit smoking and the patient is not willing to quit altogether. He did cut down which is good. I did provide him with 1 mg prednisone tablets. He can decrease by 1 mg every 1 week to try to come down to at least 10 mg daily. At that point will try to get him a little lower if possible although likely will require chronic dose. He is going to continue his respiratory therapy. Will try to simplify his regimen by placing him on Trelegy. He needs to be careful not to over medicate with inhalers. 10/20/2022 the patient is here for pulmonary follow-up visit. He is complaining of significant chest congestion. Difficult to expectorate. Moderate severity. Unfortunately when he tries to cough he started developing significant abdominal discomfort. Then, this results in significant discomfort and pain and sometimes he can even sleep. Sometimes he has to cry. The patient is uncomfortable overall. Unfortunately he continues to smoke cigarettes. He has been trying to cut down although is still very difficult for him. Otherwise been using nebulized therapy. We did review his imaging studies. His last CT scan was back in March demonstrating evidence of bronchitis and some bronchiectatic changes at the bases. All some some mosaic pattern. We did talk about considering bronchoscopy to further address his underlying chronic bronchitis and assess for any smoldering infections. In addition to this the patient does complaint of significant abdominal distention. He does have diabetes and is at risk for gastroparesis. Therefore we will increase his pulmonary toilet he agent to 500 mg 3 times a week. 03/02/2013 The patient is here for a pulmonary follow-up visit. Still complaining of chest tightness and wheezing. Has been using the combivent too much.. He has been on the azithromycin 3 times a week. She did not get the Trelegy inhaler as it was not covered. Therefore will had sent for Breo and Incruse that he can take daily. But he was only using the Incruse. Unfortunately does smoke cigarettes. He did have some success with the chantix, but, them stopped it due to adverse side effects including headache. He will go ahaed and retry it at a lower dose. Otherwise if it is not better, he will start Wellbutrim.He has been struggling to quit. We had talked about a bronchoscopy but the patient failed to show up. This point will hold off any bronchoscopy set this time. The patient needs to do a better job with adherence. He still continues to be on prednisone. In the meantime, he did tell me he is having some SSCP with exertion. No CP at this time. Has not had a recent cardiac workup. Will follow-up in 3-4 months. [facility] Medical History Viral syndrome History of COVID-19 Leukocytosis Hyperlipidemia Personal history of nicotine dependence Back pain Arthritis Anxiety and depression Asthma History of kidney stones Chronic abdominal pain Tubular adenoma of colon (~2019) Asthma-COPD overlap syndrome Osteoporosis (~2001) Irritable bowel syndrome GERD (gastroesophageal reflux disease) COPD (chronic obstructive pulmonary disease) HTN (hypertension) Surgical History History of bilateral hip replacements History of colonoscopy with polypectomy (~2020) History of colonoscopy (~2005) History of surgery on right wrist (~2014) History of hip surgery (~2001) S/P extracorporeal shock wave therapy (~2013) History of hydrocelectomy Shoulder symptoms with history of shoulder arthroplasty Family History Father No problems noted. Mother No problems noted. Son No problems noted. Daughter No problems noted. Social History Unable to assess alcohol history related to: Unknown Alcohol intake: unknown Patient Tobacco Use Status: Current everyday Tobacco user Tobacco use type: Cigarette Cigarette Packs Per Day: 0.5 Cigarettes Per Day: 7 Years Smoked: (onset 14yo, 1/2-3/4ppd x 37yrs, 23pyh) Second Hand Smoke Exposure: No Use of substances other than those prescribed or required for medical reasons: No Advance Directives: No Advance Directives Information Provided: No Advance Directives Date on File: 05/30/21 service: No Current occupational status: disabled Review of Systems Const Denies chills, Denies difficulty sleeping, Reports fatigue, Denies fever(s), Reports headache(s) and Denies night sweats ENT Denies change in voice, Reports headache(s), Denies lip swelling, Denies mouth pain, Reports nasal congestion, Reports nasal discharge and Denies tongue swelling Card Reports leg edema and Reports dyspnea on exertion Resp Reports chest congestion, Reports cough, Denies hemoptysis, Reports dyspnea on exertion and Reports wheezing GI Reports abdominal pain and Reports bloating Musc Reports as per HPI and Reports back pain Neuro Denies Neuro-related abnormal movements and Reports headache(s) Psych Denies no additional complaints Endo Reports fatigue Jamie/Lymph Denies easy bleeding and Denies lymphadenopathy Aller/Immun Denies lip swelling, Denies tongue swelling and Reports wheezing Physical Exam Vital Signs: Last Vital Signs Pulse 107 H 03/02/23 14:16 BP 130/70 03/02/23 14:16 Pulse Ox 94 03/02/23 14:16 Oxygen Delivery Method Room Air 03/02/23 14:16 BMI result Body Mass Index 30.4 Const General: alert and in distress mild and respiratory Neck Neck: Yes normal visual inspection, Yes full ROM and Yes no lymphadenopathy Chest Chest palpation & inspection: normal inspection of the chest Resp Effort & Inspection: prolonged expiratory phase Auscultation: no crackles, no wheezes and diminished lung sounds Cardio Rate: regular rate Rhythm: regular rhythm Heart sounds: S1 normal heart sound present and S2 normal heart sound present GI Inspection: Yes distended Palpation (GI): nontender Skin General skin exam: rashes and/or lesions noted Assessment & Plan Assessment & Plan (1) COPD (chronic obstructive pulmonary disease): Code(s): J44.9 - Chronic obstructive pulmonary disease, unspecified Qualifiers: COPD type: COPD with acute exacerbation Qualified Code(s): J44.1 - Chronic obstructive pulmonary disease with (acute) exacerbation (2) Tobacco dependence: Code(s): F17.200 - Nicotine dependence, unspecified, uncomplicated (3) Chest pain: Code(s): R07.9 - Chest pain, unspecified Qualifiers: Chest pain type: unspecified Qualified Code(s): R07.9 - Chest pain, unspecified Plan continue Accolate 20mg BID continue Incruse start Breo continue Combivent continue Azithromycin 500mg MWF LDCT program short-acting beta agonist as needed prednisone 10mg baseline trial chantix for tobacco cessation, if not tolerated then stop and begin Wellbutrin Doxycycline x 10 days Stress ECHO to assess the CP follow-up 3-4 months Orders: Orders CA echo stress exercise 03/02/23 R07.9 - Chest pain, unspecified Medications: New bupropion HCl 150 mg (2 x 75 mg) PO BID 30 days 120 tabs 6RF doxycycline monohydrate 100 mg PO BID 14 days 28 tabs 0RF Quality Reporting (2019) Adult ([facility] 138/05/10/68) Smoking risk assessment performed?: Yes Patient Tobacco Use Status: Current everyday Tobacco user Coding Level of Care Code Est Pt Level 4 (54488) Diagnoses Chronic obstructive pulmonary disease with acute exacerbation J44.1 COPD type: COPD with acute exacerbation Tobacco dependence F17.200 Chest pain, unspecified type R07.9 Chest pain type: unspecified Time Spent (min) 17
== END 2023-03-02 14:47 | disposition home or self-care (01) ==
PROVIDERS: PCP Internal Medicine; Visit Provider Hospitalist
DX: J44.1 Chronic obstructive pulmonary disease with (acute) exacerbation (principal); F17.200 Nicotine dependence, unspecified, uncomplicated; R07.9 Chest pain, unspecified
CPT/HCPCS: 99214

== ENCOUNTER → 2023-03-02 14:12 | Outpatient (BNVA) | payer MEDICAID, SELFPAY | PROVIDERS: PCP Internal Medicine; Visit Provider Hospitalist | DX: J44.1 Chronic obstructive pulmonary disease with (acute) exacerbation (principal); R07.9 Chest pain, unspecified; F17.210 Nicotine dependence, cigarettes, uncomplicated | CPT/HCPCS: 99212 ==

== ENCOUNTER 2023-03-06 23:48 | Emergency (ER) | payer MEDICAID, SELFPAY ==
--- NOTE | 2023-03-06 | ECG_ITS ---
Test Reason : chest pain Blood Pressure : / mmHG Vent. Rate : 095 BPM Atrial Rate : 095 BPM P-R Int : 138 ms QRS Dur : 066 ms QT Int : 320 ms P-R-T Axes : 058 018 063 degrees QTc Int : 402 ms Normal sinus rhythm Normal ECG When compared with ECG of 07-JAN-2023 19:12, Non-specific change in ST segment in Inferior leads ST no longer depressed in Lateral leads Referred By: Generic ED Physician Electronically Signed By:CRISTOBAL ANDERSON MD
--- NOTE | ~2023-03-06 | US_ITS ---
EXAMINATION: US VENOUS ULTRASOUND WITH DOPPLER LOWER EXTREMITY, RIGHT CLINICAL INFORMATION: Right lower extremity pain. Question DVT. COMPARISON: 06/21/2022 TECHNIQUE: Ultrasound of the deep veins is performed from the hip to the calf with compression sonography and color and pulse Doppler assessment. Spectral analysis with color-flow imaging is performed. FINDINGS: There is normal venous compression and respiratory variation and augmented flow. The visualized common femoral vein, profunda femoral vein, popliteal vein, and the trifurcation region shows no evidence of deep venous thrombosis. Small amount of nonocclusive thrombus present in the mid superficial femoral vein.. There is no significant popliteal fossa cyst. If the patient's symptoms persist, followup ultrasound in 5 days 7 days might be of value to exclude proximal propagation from a non-visualized calf vein. US/US venous duplex LE RT IMPRESSION: * No acute DVT demonstrated in the right lower extremity. * Small amount of nonocclusive thrombus present within the mid superficial femoral vein, likely chronic. This critical result was discussed with Dr Aguilar at 03/07/2023 2:44 AM and it was ascertained that the content and urgency of the report was understood at the time of direct communication.
--- NOTE | ~2023-03-06 | CT_ITS ---
EXAMINATION: CT ANGIOGRAM OF THE CHEST WITH AND WITHOUT CONTRAST (CT PULMONARY ANGIOGRAM FOR PE) CLINICAL INFORMATION: Reason for Exam chest pain + DVT study COMPARISON: 07.12.2022 TECHNIQUE: Prior to contrast administration, noncontrast localization images were obtained. Subsequently, multidetector volumetric imaging was performed from the thoracic inlet to below the diaphragms following the administration of 75 mL Omnipaque 350 intravenous contrast. No contrast reaction reported Sagittal, coronal, and MIP oblique sagittal reformatted images were obtained on the CT workstation, uploaded to PACS, and reviewed. This CT examination was performed using dose optimization techniques as appropriate, variously including the following: *Automated exposure control *Adjustment of mA and/or kV according to patient size (this includes techniques or standardized protocols for targeted exams where dose is matched to indication/reason for exam; i.e. extremities or head) *Use of iterative reconstruction technique Total exam dose-length product 232 mGy-cm FINDINGS: QUALITY OF STUDY/CONTRAST BOLUS: Satisfactory. PULMONARY ARTERIES: No pulmonary emboli. THORACIC AORTA: No aneurysm. LUNG: Diffuse moderate bronchial wall thickening with scattered subsegmental endobronchial secretions predominating in the lower lungs bilaterally. Subsegmental atelectasis in the dependent lingula and platelike atelectasis in the right lower lobe. No acute pneumonitis. No suspicious pulmonary nodules. PLEURA: No pleural effusion or pneumothorax. MEDIASTINUM: Normal heart size. No pericardial effusion. No hilar or mediastinal lymphadenopathy. No evidence of septal bowing or right heart strain. CORONARY ARTERY CALCIFICATION: Present. CHEST WALL/AXILLA: No axillary or internal mammary lymphadenopathy. OSSEOUS STRUCTURES: Stable compression fracture at T5 resulting in 75% height loss anteriorly, and 50% height loss posteriorly. New but chronic appearing mild compression deformity at T4. New but chronic appearing inferior endplate compression deformity at T6. Interval vertebroplasty within a T7 vertebral body fracture, also new from prior. UPPER ABDOMEN: Unremarkable. CT/CT angio chest PE protocol IMPRESSION: * No evidence of pulmonary embolism. * Diffuse moderate bronchial wall thickening with scattered subsegmental endobronchial secretions predominating in the lower lungs bilaterally compatible with bronchitis, similar to the prior exam. * No acute pneumonitis or parenchymal consolidation. * Stable compression fracture at T5. New, but chronic appearing mild compression fractures at T4, T6 and T7, status post vertebroplasty at T7. VTE: NEGATIVE.
[2023-03-06 23:49] VITALS: BP 148/95; PULSE 100; RESP 18; TEMP 36.7; O2SAT 94; BMI 26.0
[2023-03-07 00:17] LABS: Basophils Absolute Auto 0.1 X10*3/uL (0.0-0.2); Basophils Percent Auto 0.5 % (0-2); Eosinophils Absolute Auto 0.1 X10*3/uL (0.0-0.4); Eosinophils Percent Auto 0.5 % (0-4); Hematocrit 42.6 % (42.0-52.0); Hemoglobin 13.9 g/dl (14.0-18.0); Imm Gran Abs Auto 0.19 X10*3/uL (0.00-0.03); Lymphocytes Percent Auto 26.3 % (20-40); MANUAL DIFF FLAG SCAN; Mean Corpuscular HGB Conc 32.6 g/dl (31.0-36.0); Mean Corpuscular Hemoglobin 30.5 pg (27.0-33.0); Mean Corpuscular Volume 93.4 fL (80.0-98.0); Mean Platelet Volume 8.2 fL (9.4-12.4); Monocytes Absolute Auto 1.8 X10*3/uL (0.1-1.2); Monocytes Percent Auto 9.3 % (2-11); Neutrophils Absolute Auto 11.8 x10*3/uL (2.0-8.3); Neutrophils Percent Auto 62.4 % (45-73); Platelet Count 382 X10*3/uL (160-400); Red Blood Count 4.56 X10*6/uL (4.60-5.80); Red Cell Distribution Width 13.8 % (11.0-16.0); SCAN SMEAR FLAG 1; White Blood Count 18.8 X10*3/uL (4.8-10.8)
[2023-03-07 00:32] LABS: Alanine Aminotransferase 11 U/L (0-40); Alkaline Phosphatase 56 U/L (39-117); Anion Gap 12 (12-20); Aspartate Amino Transferase 12 U/L (5-37); Bilirubin Total 0.4 mg/dL (0.0-1.0); Blood Urea Nitrogen 16 mg/dL (9-16); Calcium 9.1 mg/dL (8.4-10.2); Carbon Dioxide 27 mmol/L (22-29); Chloride 108 mmol/L (96-108); Creatinine Clr Calc Pharmacy 116.4; Estimated Glomerular Filt Rate > 60; Glucose Random 117 mg/dL (60-115); Potassium 4.1 mmol/L (3.3-5.1); Sodium 143 mmol/L (135-145)
[2023-03-07 00:35] LABS: SLIDE REVIEW VERIFIED
[2023-03-07 00:36] LABS: Troponin-I High Sensitivity 6.9 ng/L (<3.5-35.0)
[2023-03-07 00:40] LABS: B Type Natriuretic Peptide 23 pg/mL (<100)
--- NOTE | 2023-03-07 03:23 | ED.CHESTPAIN ---
HPI - Chest Pain General Chief Complaint: Chest Pain Stated Complaint: CP, leg swelling, history of COPD Time Seen by Provider: 03/07/23 02:57 Source: patient Mode of arrival: ambulatory Limitations: no limitations History of Present Illness HPI narrative: 53 yo male with PMH of HTN, HLD, GERD, IBS here with c/o 2 weeks of R leg pain and swelling after walking and pulling/tearing calf then started to have mild L sided intermittent chest pain. No hx of VTE, no travel, procedures, no hx of internal bleeding. MD complaint: chest pain (leg pain) Onset (ago): week(s) (2) Timing of current episode: episodic and constant Prior episodes: No Pain location: left chest and other (R calf) Pain radiation: none Severity: mild Quality: aching and sharp Relieving factors: nothing Exacerbating factors: nothing Context: other (started after calf injury while walking) Associated symptoms: dyspnea Treatment prior to arrival: none Related Data Home Medications Medication Instructions Recorded Confirmed amlodipine 5 mg tablet 5 mg PO DAILY 05/28/21 09/15/22 atorvastatin 10 mg tablet 10 mg PO BEDTIME 05/28/21 09/15/22 baclofen 20 mg tablet 20 mg PO TID PRN muscle spasm 05/28/21 09/15/22 calcium carbonate 500 mg-vitamin 1 tab PO BID 05/28/21 09/15/22 D3 5 mcg (200 unit) tablet (Oyster Shell Calcium-Vitamin D3) cholecalciferol (vitamin D3) 50 2,000 unit PO DAILY 05/28/21 09/15/22 mcg (2,000 unit) tablet metoprolol succinate 25 mg 25 mg PO DAILY 05/28/21 09/15/22 tablet,extended release 24 hr clotrimazole 1 % topical cream appl topical 07/26/21 09/15/22 nebulizers 06/14/22 09/04/22 codeine 10 mg-guaifenesin 100 mg/5 10 ml PO Q6H PRN cough 01/11/23 mL oral liquid ergocalciferol (vitamin D2) 1,250 1,250 mcg PO QWEEK 01/11/23 mcg (50,000 unit) capsule insulin glargine 100 unit/mL (3 7 unit subcut BEDTIME 01/11/23 mL) subcutaneous pen (Lantus Solostar U-100 Insulin) losartan 25 mg tablet 25 mg PO QAM 01/11/23 metformin 1,000 mg tablet 1,000 mg PO 01/11/23 montelukast 10 mg tablet 10 mg PO BEDTIME 01/11/23 roflumilast 250 mcg tablet 250 mcg PO DAILY 01/11/23 (Daliresp) sitagliptin phosphate 25 mg tablet 25 mg PO QAM 01/11/23 (Januvia) zafirlukast 20 mg tablet 20 mg PO BID 01/11/23 alendronate 70 mg tablet 70 mg PO QWEEK 02/07/23 calcium carbonate 600 mg calcium 600 mg PO BID 02/07/23 (1,500 mg) tablet Previous Rx's Medication Instructions Recorded nystatin 100,000 unit/gram topical 1 appl topical TID #15 grams 07/26/21 cream ivgsug-zzzfdhas-qfbdmuz 1 cap PO QID 30 days #120 caps 03/09/22 24,000-76,000-120,000 unit capsule,delayed rel (Creon) linaclotide 290 mcg capsule 290 mcg PO QAM #30 caps 04/18/22 (Linzess) tramadol 50 mg tablet 50 mg PO Q8H PRN postoperative 09/06/22 pain 3 days #10 tabs fluticasone furoate 200 1 inh inhalation DAILY 30 days #60 11/28/22 mcg-vilanterol 25 mcg/dose ea inhalation powder (Breo Ellipta) guaifenesin 100 mg/5 mL oral liquid 200 mg (10 mL) PO Q4H PRN cough 14 11/28/22 days #473 mL umeclidinium 62.5 mcg/actuation 1 inh inhalation DAILY 30 days #30 11/28/22 blister powder for inhalation ea (Incruse Ellipta) varenicline 0.5 mg (11)-1 mg (42) See Rx Instructions PO PER PKG DIR 11/28/22 tablets in a dose pack ([employer] #48 ea Starting Month Box) famotidine 40 mg tablet 40 mg PO BEDTIME #90 tabs 11/29/22 omeprazole 40 mg capsule,delayed 40 mg PO DAILY #90 caps 12/08/22 release ipratropium 20 mcg-albuterol 100 1 puff inhalation Q6H #4 grams 01/07/23 mcg/actuation mist for inhalation (Combivent Respimat) albuterol sulfate 90 mcg/actuation 2 puff PO Q6H PRN for dyspnea #18 01/09/23 aerosol inhaler (Ventolin HFA) ea ipratropium bromide 17 2 puff inhalation QID 30 days 01/09/23 mcg/actuation HFA aerosol inhaler #12.9 grams (Atrovent HFA) bisacodyl 5 mg tablet,delayed 10 mg (2 x 5 mg) PO BEDTIME 30 01/11/23 release (Dulcolax (bisacodyl)) days #60 tabs simethicone 180 mg capsule 180 mg PO QID 30 days #120 caps 01/11/23 varenicline 1 mg tablet (Chantix) 1 mg PO BID 30 days #60 tabs 01/24/23 magnesium citrate 150 ml PO DAILY 2 days #300 mL 02/07/23 peg 3350-electrolytes 236 240 ml PO Q10M 1 day #4,000 mL 02/07/23 gram-22.74 gram-6.74 gram-5.86 gram solution (Golytely) bupropion HCl 75 mg tablet 150 mg (2 x 75 mg) PO BID 30 days 03/02/23 #120 tabs doxycycline monohydrate 100 mg 100 mg PO BID 14 days #28 tabs 03/02/23 tablet apixaban 5 mg (74 tabs) tablets in 5 mg PO BID #74 ea 03/07/23 a dose pack ([employer] DVT-PE Treat 30D Start) azithromycin 250 mg tablet See Rx Instructions PO .COMPLEX #6 03/07/23 tabs Allergies Allergy/AdvReac Type Severity Reaction Status Date / Time ibuprofen [From Motrin] Allergy Rash Verified 03/02/23 14:18 Review of Systems Review of Systems: Constitutional : No Weight loss, No Fever, No Chills ENT/Mouth : No sore throat, No Rhinorrhea Eyes: No Eye Pain, No Swelling Cardiovascular : pos Chest Pain, pos SOB, no Dyspnea on Exertion, No Orthopnea, No Edema, No Palpitations, pos calf pain Respiratory : No Cough, No Sputum Gastrointestinal : no Nausea, No Vomiting, No Diarrhea, No abdominal Pain, No Hematochezia, No Melena Genitourinary : No Dysuria, No Urinary Frequency Musculoskeletal : No joint pain, No Myalgias, No Joint Swelling Skin : No Skin Lesions, No rash Neuro : No Weakness, No Numbness, No Dizziness, No Headache Psych : No Anxiety/Panic, No Depression Heme/Lymph: No Bruising, No Lymphadenopathy Endocrine : No Polyuria, No Polydipsia All other systems reviewed and are negative [facility] Past Medical History Attestation statement: The following information was validated with the patient. Source: old records reviewed Medical History Viral syndrome History of COVID-19 Leukocytosis Hyperlipidemia Personal history of nicotine dependence Back pain Arthritis Anxiety and depression Asthma History of kidney stones Chronic abdominal pain Tubular adenoma of colon (~2019) Asthma-COPD overlap syndrome Osteoporosis (~2001) Irritable bowel syndrome GERD (gastroesophageal reflux disease) COPD (chronic obstructive pulmonary disease) HTN (hypertension) Surgical History History of bilateral hip replacements History of colonoscopy with polypectomy (~2020) History of colonoscopy (~2005) History of surgery on right wrist (~2014) History of hip surgery (~2001) S/P extracorporeal shock wave therapy (~2013) History of hydrocelectomy Shoulder symptoms with history of shoulder arthroplasty Family History Family History Father No problems noted. Mother No problems noted. Son No problems noted. Daughter No problems noted. Social History Social History Unable to assess alcohol history related to: Unknown Alcohol intake: unknown Patient Tobacco Use Status: Current everyday Tobacco user Tobacco use type: Cigarette Cigarette Packs Per Day: 0.5 Cigarettes Per Day: 7 Years Smoked: (onset 14yo, 1/2-3/4ppd x 37yrs, 23pyh) Second Hand Smoke Exposure: No Use of substances other than those prescribed or required for medical reasons: No Advance Directives: No Advance Directives Information Provided: No Advance Directives Date on File: 05/30/21 service: No Current occupational status: disabled Physical Exam Vital Signs: Vital Signs: Last Vital Signs Temp 98.0 F 03/06/23 23:49 Pulse 88 03/07/23 05:01 Resp 12 03/07/23 05:01 BP 114/71 03/07/23 05:01 Pulse Ox 94 03/07/23 05:01 O2 Del Method Room Air 03/07/23 05:01 BMI result Body Mass Index 26.0 Appearance: Alert. Oriented X3. No acute distress. Eyes: Pupils equal, round and reactive to light. ENT: Pharynx normal. Neck: Normal inspection. Neck supple. CVS: Normal heart rate and rhythm. Pulses normal. Respiratory: No respiratory distress. Breath sounds normal. Abdomen: Soft and nontender. Skin: Skin warm and dry. Normal skin color. Normal skin turgor. Extremities: No lower extremity edema. R calf contusion noted posteriorly distal pulses intact pitting edema 1+ noted Neuro: Oriented X 3. No motor deficit. No sensory deficit. Course Course Course Narrative: chronic leukocytosis Medications Administered Discontinued Medications Generic Name Dose Route Start Last Admin Trade Name Santanaq PRN Reason Stop Dose Admin Iohexol 75 ml 03/07/23 03:26 03/07/23 03:27 Iohexol 350 Mg/Ml 100 Ml Infus..Btl IV 03/07/23 03:27 75 ml ONCE ONE Administration Morphine Sulfate 4 mg 03/07/23 03:34 03/07/23 03:52 Morphine Sulfate 4 Mg/Ml Cartridge IVPUSH 03/07/23 03:35 4 mg ONCE ONE Administration Protocol Ondansetron HCl 4 mg 03/07/23 03:34 03/07/23 03:52 Ondansetron Hcl 4 Mg/2 Ml Vial IVPUSH 03/07/23 03:35 4 mg ONCE ONE Administration Medical Decision Making Medical Decision Making [facility] Narrative: 53 yo male with PMH of HTN, HLD, GERD, IBS here with R calf pain post walking injury and L chest pain - at this time no hx of VTE will need DVT study and CTA labs, EKG. VS are stable. He denies any prior bleeding issues or hx of bleeding/internal bleeding, no contraindications to anticoagulation of positive. Differential Diagnosis Differential Diagnoses: The differential diagnosis associated with the presentation includes VTE, MSK pain Admission/Observation Consideration of admission/observation: Escalation of care including admission/observation considered no VTE stable for DC Lab Data [facility] Lab Attestation statement: I reviewed the patient's lab results. 03/07/23 00:00 03/07/23 00:00 Labs: Lab Results 03/07/23 Range/Units 00:00 WBC 18.8 H (4.8-10.8) X10*3/uL RBC 4.56 L (4.60-5.80) X10*6/uL Hgb 13.9 L (14.0-18.0) g/dl Hct 42.6 (42.0-52.0) % MCV 93.4 (80.0-98.0) fL MCH 30.5 (27.0-33.0) pg MCHC 32.6 (31.0-36.0) g/dl RDW 13.8 (11.0-16.0) % Plt Count 382 (160-400) X10*3/uL MPV 8.2 L (9.4-12.4) fL Immature Gran % (Auto) 1.0 H (0.0-0.4) % Neut % (Auto) 62.4 (45-73) % Lymph % (Auto) 26.3 (20-40) % [place] % (Auto) 9.3 (2-11) % Eos % (Auto) 0.5 (0-4) % Baso % (Auto) 0.5 (0-2) % Lymph # (Auto) 5.0 H (1.2-4.9) X10*3/uL [place] # (Auto) 1.8 H (0.1-1.2) X10*3/uL Eos # (Auto) 0.1 (0.0-0.4) X10*3/uL Baso # (Auto) 0.1 (0.0-0.2) X10*3/uL Abs Immat Gran (auto) 0.19 H (0.00-0.03) X10*3/uL Absolute Neuts (auto) 11.8 H (2.0-8.3) x10*3/uL Absolute Nucleated RBC 0.000 (0.0-0.012) X10*3/uL Nucleated RBC % (auto) 0.0 (0.0-0.2) /100WBC Smear Tech's Comments VERIFIED Sodium 143 (135-145) mmol/L Potassium 4.1 (3.3-5.1) mmol/L Chloride 108 (96-108) mmol/L Carbon Dioxide 27 (22-29) mmol/L Anion Gap 12 (12-20) BUN 16 (9-16) mg/dL Creatinine 0.67 (0.5-1.4) mg/dL Estim Creat Clear Calc 116.4 Estimated GFR > 60 Random Glucose 117 H (60-115) mg/dL Calcium 9.1 D (8.4-10.2) mg/dL Total Bilirubin 0.4 (0.0-1.0) mg/dL AST 12 (5-37) U/L ALT 11 (0-40) U/L Alkaline Phosphatase 56 (39-117) U/L Troponin I High Sens 6.9 D (<3.5-35.0) ng/L B-Natriuretic Peptide 23 (<100) pg/mL Total Protein 7.0 (6.5-8.0) g/dL Albumin 4.0 (3.5-5.0) g/dL Independent Interpretation I performed an independent interpretation of an: EKG, Ultrasound (+ mid SFA chronic nonocclusive thrombus) and CT Scan Interpretation: Rate: 95 Rhythm: NSR Sawyer: normal Normal P waves. Normal JUSTINA. Normal QRS complex. ST T wave : normal no RACHNA qTC: normal prior studies: no acute ischemia The study has been interpreted contemporaneously by me. . Radiology Impression Discussion of test interpretation with radiology: I discussed test interpretation with the radiologist and I have reviewed the radiologist's reading. External Record Review External record reviewed: Inpatient record Prescription Management I considered prescription management with: Other Discharge Plan Discharge Clinical Impression: Atypical chest pain, Bronchitis DVT (deep venous thrombosis) Qualifiers: DVT location: lower extremity Affected thrombotic vein of extremity: femoral Chronicity: chronic Laterality: right Qualified Code(s): I82.511 - Chronic embolism and thrombosis of right femoral vein Patient Disposition: Home, Self-Care Instructions: Chest Pain (ED), Deep Vein Thrombosis (ED), Blood Thinners (ED) Additional Instructions: return for black or bloody stools, bleeding that will not stop, falls with hitting head. do not take aspirin, motrin, ibuprofen, TYLENOL is okay. you need to follow up with your doctor. regresa por heces negras o con tricia, sangrado que no para, ca?lind que se golpean la thuy. no tome aspirina, motrin, ibuprofeno, TYLENOL est? lisa. necesita hacer un seguimiento con álvarez m?dico. Prescriptions: [employer] DVT-PE Treat 30D Start 5 mg (74 tabs) tablets,dose pack 5 mg PO BID Qty: 74 0RF Rx Instructions: 10mg BID for 7 days followed by 5mg BID azithromycin 250 mg tablet See Rx Instructions .ROUTE .COMPLEX Qty: 6 0RF Rx Instructions: For 250 mg dose pack: take 500 mg today (day 1), then 250 mg for 4 days (days 2-5) No Action Linzess 290 mcg capsule 290 mcg PO QAM Qty: 30 6RF famotidine 40 mg tablet 40 mg PO BEDTIME Qty: 90 1RF omeprazole 40 mg capsule,delayed release(DR/EC) 40 mg PO DAILY Qty: 90 1RF albuterol sulfate [Ventolin HFA] 90 mcg/actuation HFA aerosol inhaler 2 puff PO Q6H PRN (Reason: for dyspnea) Qty: 18 5RF Atrovent HFA 17 mcg/actuation HFA aerosol inhaler 2 puff inhalation QID 30 Days Qty: 12.9 11RF varenicline [Chantix] 1 mg tablet 1 mg PO BID 30 Days Qty: 60 3RF atorvastatin 10 mg tablet 10 mg PO BEDTIME amlodipine 5 mg tablet 5 mg PO DAILY baclofen 20 mg tablet 20 mg PO TID PRN (Reason: muscle spasm) metoprolol succinate 25 mg tablet extended release 24 hr 25 mg PO DAILY calcium carbonate-vitamin D3 [Oyster Shell Calcium-Vit D3] 500 mg-5 mcg (200 unit) tablet 1 tab PO BID cholecalciferol (vitamin D3) 50 mcg (2,000 unit) tablet 2,000 unit PO DAILY Combivent Respimat 20-100 mcg/actuation mist 1 puff inhalation Q6H Qty: 4 0RF tramadol 50 mg tablet 50 mg PO Q8H PRN (Reason: postoperative pain) 3 Days Qty: 10 0RF Rx Instructions: do not take this medicine within 2 hours of HS. instead OTC Tylenol 500 1-2 tabs p.o. can be taken at night if his pain is severe. clotrimazole 1 % cream topical nystatin 100,000 unit/gram cream 1 appl topical TID Qty: 15 0RF Creon 24,000-76,000 -120,000 unit capsule,delayed release(DR/EC) 1 cap PO QID 30 Days Qty: 120 6RF Rx Instructions: administer with meals and/or snacks (DME) nebulizers Misc See Rx Instructions .Route Rx Instructions: As directed calcium carbonate 600 mg calcium (1,500 mg) tablet 600 mg PO BID peg 3350-electrolytes [Golytely] 236-22.74-6.74 -5.86 gram recon soln 240 ml PO Q10M 1 Days Qty: 4000 0RF Rx Instructions: until fecal effluent is clear; do not exceed a total volume of 2,000 mL magnesium citrate Solution 150 ml PO DAILY 2 Days Qty: 300 0RF Incruse Ellipta 62.5 mcg/actuation blister with device 1 inh inhalation DAILY 30 Days Qty: 30 11RF fluticasone furoate-vilanterol [Breo Ellipta] 200-25 mcg/dose blister with device 1 inh inhalation DAILY 30 Days Qty: 60 11RF varenicline [Chantix Starting Month Box] 0.5 mg (11)- 1 mg (42) tablets,dose pack See Rx Instructions PO PER PKG DIR Qty: 48 0RF Rx Instructions: PO PER PKG DIR guaifenesin 100 mg/5 mL liquid 200 mg PO Q4H PRN (Reason: cough) 14 Days Qty: 473 4RF ergocalciferol (vitamin D2) 1,250 mcg (50,000 unit) capsule 1,250 mcg PO QWEEK Januvia 25 mg tablet 25 mg PO QAM codeine-guaifenesin 10-100 mg/5 mL liquid 10 ml PO Q6H PRN (Reason: cough) losartan 25 mg tablet 25 mg PO QAM insulin glargine [Lantus Solostar U-100 Insulin] 100 unit/mL (3 mL) insulin pen 7 unit subcut BEDTIME metformin 1,000 mg tablet 1,000 mg PO roflumilast [Daliresp] 250 mcg tablet 250 mcg PO DAILY zafirlukast 20 mg tablet 20 mg PO BID Rx Instructions: must be taken on empty stomach, at least 1 hr before or 2 hrs after a meal/food montelukast 10 mg tablet 10 mg PO BEDTIME bisacodyl [Dulcolax (bisacodyl)] 5 mg tablet,delayed release (DR/EC) 10 mg PO BEDTIME 30 Days Qty: 60 6RF simethicone 180 mg capsule 180 mg PO QID 30 Days Qty: 120 3RF Rx Instructions: after meals alendronate 70 mg tablet 70 mg PO QWEEK bupropion HCl 75 mg tablet 150 mg PO BID 30 Days Qty: 120 6RF doxycycline monohydrate 100 mg tablet 100 mg PO BID 14 Days Qty: 28 0RF Referrals: Candace Quiñones MD [Primary Care Provider] - 1 week Interventions: ED Discharge Assessment Last Done: 03/07/23 05:36 Discharge Date/Time: 03/07/23 05:38 Print Language: Barbadian
[2023-03-07] MEDS: iohexoL 350 MG/ML 100 ML INFUS..BTL 75 ML IV (03:27)
[2023-03-07] MEDS: ondansetron HCL 4 MG/2 ML VIAL IVPUSH (03:52)
[2023-03-07] MEDS: Morphine Sulfate 4 MG/ML CARTRIDGE IVPUSH (03:52)
[2023-03-07 05:01] VITALS: BP 114/71; PULSE 88; RESP 12; O2SAT 94
== END 2023-03-07 05:38 | disposition home or self-care (01) ==
PROVIDERS: Emergency Provider Emergency Medicine; PCP Student in an Organized Health Care Education/Training Program
DX: R07.89 Other chest pain (principal); I82.511 Chronic embolism and thrombosis of right femoral vein; J40 Bronchitis, not specified as acute or chronic; R60.0 Localized edema; R06.02 Shortness of breath; Z79.899 Other long term (current) drug therapy
CPT/HCPCS: 36415; 71275; 80053; 83880; 84484; 85025; 93005; 93971; 96374; 96376; 99284; J2270; J2405; Q9967

== ENCOUNTER → 2023-03-06 23:53 | Outpatient (BNV) | payer MEDICAID, SELFPAY | PROVIDERS: Emergency Provider Emergency Medicine; PCP Student in an Organized Health Care Education/Training Program; Visit Provider Internal Medicine Cardiovascular Disease | DX: R07.9 Chest pain, unspecified (principal) | CPT/HCPCS: 93010 ==

== ENCOUNTER 2023-03-09 19:59 | Emergency (ER) | payer MEDICAID, SELFPAY ==
--- NOTE | ~2023-03-09 | US_ITS ---
EXAMINATION: US ARTERIAL DUPLEX LE RT CLINICAL INFORMATION: Reason for Exam Claudication cold extremity. Hypertension. History of smoking. Diabetes and dyslipidemia. COMPARISON: None TECHNIQUE: Grayscale and color Doppler sonographic evaluation of the right lower extremity arterial vasculature with spectral analysis FINDINGS: Atherosclerotic plaque noted in the common femoral artery. Minimal plaque evident in the remaining lower extremity arterial vasculature. RIGHT (PSV/Waveform): * COMPACTING MACHINE OPERATOR/TENDER: 113 cm/s, triphasic * PFA: 78 cm/s, triphasic * Proximal SFA: 114 cm/s, triphasic * Mid SFA: 113 cm/s, triphasic * Distal SFA: 110 cm/s, triphasic * Popliteal: 41 cm/s, triphasic * OBSTETRICS TECH: 64 cm/s, triphasic US/US arterial duplex LE RT IMPRESSION: No evidence of hemodynamically significant stenosis within the right lower extremity arterial vasculature.
[2023-03-09 20:31] VITALS: BP 151/102; PULSE 99; RESP 18; TEMP 36.6; O2SAT 96; BMI 29.8
--- NOTE | 2023-03-09 20:36 | ED.GENADULT ---
HPI - General Adult General Chief complaint: Recheck/Abnormal Lab/Rx Stated complaint: ?Clots in R leg Time Seen by Provider: 03/09/23 23:47 Source: patient Mode of arrival: ambulatory Limitations: no limitations History of Present Illness HPI narrative: Patient with history of hypertension hyperlipidemia IBS smoker was seen here yesterday for right leg pain for last 2 weeks venous Doppler was done showed superficial femoral vein thrombosis started on Eliquis patient comes back as still having the pain in the right leg and noticed discoloration of the right foot since early today. Patient does have claudication history for last 2 3 months whenever he walks short distances which is getting worse now having resting pain in the right leg which is radiating from right calf all the way to the foot and since early today patient noticed if more bluish and cold than the left foot denied any significant shortness of breath Related Data Home Medications Medication Instructions Recorded Confirmed amlodipine 5 mg tablet 5 mg PO DAILY 05/28/21 09/15/22 atorvastatin 10 mg tablet 10 mg PO BEDTIME 05/28/21 09/15/22 baclofen 20 mg tablet 20 mg PO TID PRN muscle spasm 05/28/21 09/15/22 calcium carbonate 500 mg-vitamin 1 tab PO BID 05/28/21 09/15/22 D3 5 mcg (200 unit) tablet (Oyster Shell Calcium-Vitamin D3) cholecalciferol (vitamin D3) 50 2,000 unit PO DAILY 05/28/21 09/15/22 mcg (2,000 unit) tablet metoprolol succinate 25 mg 25 mg PO DAILY 05/28/21 09/15/22 tablet,extended release 24 hr clotrimazole 1 % topical cream appl topical 07/26/21 09/15/22 nebulizers 06/14/22 09/04/22 codeine 10 mg-guaifenesin 100 mg/5 10 ml PO Q6H PRN cough 01/11/23 mL oral liquid ergocalciferol (vitamin D2) 1,250 1,250 mcg PO QWEEK 01/11/23 mcg (50,000 unit) capsule insulin glargine 100 unit/mL (3 7 unit subcut BEDTIME 01/11/23 mL) subcutaneous pen (Lantus Solostar U-100 Insulin) losartan 25 mg tablet 25 mg PO QAM 01/11/23 metformin 1,000 mg tablet 1,000 mg PO 01/11/23 montelukast 10 mg tablet 10 mg PO BEDTIME 01/11/23 roflumilast 250 mcg tablet 250 mcg PO DAILY 01/11/23 (Daliresp) sitagliptin phosphate 25 mg tablet 25 mg PO QAM 01/11/23 (Januvia) zafirlukast 20 mg tablet 20 mg PO BID 01/11/23 alendronate 70 mg tablet 70 mg PO QWEEK 02/07/23 calcium carbonate 600 mg calcium 600 mg PO BID 02/07/23 (1,500 mg) tablet Previous Rx's Medication Instructions Recorded nystatin 100,000 unit/gram topical 1 appl topical TID #15 grams 07/26/21 cream [id number]-rpsdtkwg-[id number] 1 cap PO QID 30 days #120 caps 03/09/22 24,000-76,000-120,000 unit capsule,delayed rel (Creon) linaclotide 290 mcg capsule 290 mcg PO QAM #30 caps 04/18/22 (Linzess) tramadol 50 mg tablet 50 mg PO Q8H PRN postoperative 09/06/22 pain 3 days #10 tabs fluticasone furoate 200 1 inh inhalation DAILY 30 days #60 11/28/22 mcg-vilanterol 25 mcg/dose ea inhalation powder (Breo Ellipta) guaifenesin 100 mg/5 mL oral liquid 200 mg (10 mL) PO Q4H PRN cough 14 11/28/22 days #473 mL umeclidinium 62.5 mcg/actuation 1 inh inhalation DAILY 30 days #30 11/28/22 blister powder for inhalation ea (Incruse Ellipta) varenicline 0.5 mg (11)-1 mg (42) See Rx Instructions PO PER PKG DIR 11/28/22 tablets in a dose pack (Chantix #48 ea Starting Month Box) famotidine 40 mg tablet 40 mg PO BEDTIME #90 tabs 11/29/22 omeprazole 40 mg capsule,delayed 40 mg PO DAILY #90 caps 12/08/22 release ipratropium 20 mcg-albuterol 100 1 puff inhalation Q6H #4 grams 01/07/23 mcg/actuation mist for inhalation (Combivent Respimat) albuterol sulfate 90 mcg/actuation 2 puff PO Q6H PRN for dyspnea #18 01/09/23 aerosol inhaler (Ventolin HFA) ea ipratropium bromide 17 2 puff inhalation QID 30 days 01/09/23 mcg/actuation HFA aerosol inhaler #12.9 grams (Atrovent HFA) bisacodyl 5 mg tablet,delayed 10 mg (2 x 5 mg) PO BEDTIME 30 01/11/23 release (Dulcolax (bisacodyl)) days #60 tabs simethicone 180 mg capsule 180 mg PO QID 30 days #120 caps 01/11/23 varenicline 1 mg tablet (Chantix) 1 mg PO BID 30 days #60 tabs 01/24/23 magnesium citrate 150 ml PO DAILY 2 days #300 mL 02/07/23 peg 3350-electrolytes 236 240 ml PO Q10M 1 day #4,000 mL 02/07/23 gram-22.74 gram-6.74 gram-5.86 gram solution (Golytely) bupropion HCl 75 mg tablet 150 mg (2 x 75 mg) PO BID 30 days 03/02/23 #120 tabs doxycycline monohydrate 100 mg 100 mg PO BID 14 days #28 tabs 03/02/23 tablet apixaban 5 mg (74 tabs) tablets in 5 mg PO BID #74 ea 03/07/23 a dose pack ([employer] DVT-PE Treat 30D Start) azithromycin 250 mg tablet See Rx Instructions PO .COMPLEX #6 03/07/23 tabs Allergies Allergy/AdvReac Type Severity Reaction Status Date / Time ibuprofen [From Motrin] Allergy Rash Verified 03/02/23 14:18 Review of Systems Review of Systems: Yes all other systems are reviewed and are negative [facility] Past Medical History Medical History Viral syndrome History of COVID-19 Leukocytosis Hyperlipidemia Personal history of nicotine dependence Back pain Arthritis Anxiety and depression Asthma History of kidney stones Chronic abdominal pain Tubular adenoma of colon (~2019) Asthma-COPD overlap syndrome Osteoporosis (~2001) Irritable bowel syndrome GERD (gastroesophageal reflux disease) COPD (chronic obstructive pulmonary disease) HTN (hypertension) Surgical History History of bilateral hip replacements History of colonoscopy with polypectomy (~2020) History of colonoscopy (~2005) History of surgery on right wrist (~2014) History of hip surgery (~2001) S/P extracorporeal shock wave therapy (~2013) History of hydrocelectomy Shoulder symptoms with history of shoulder arthroplasty Family History Family History Father No problems noted. Mother No problems noted. Son No problems noted. Daughter No problems noted. Social History Social History Unable to assess alcohol history related to: Unknown Alcohol intake: unknown Patient Tobacco Use Status: Current everyday Tobacco user Tobacco use type: Cigarette Cigarette Packs Per Day: 0.5 Cigarettes Per Day: 7 Years Smoked: (onset 14yo, 1/2-3/4ppd x 37yrs, 23pyh) Second Hand Smoke Exposure: No Advance Directives: No Advance Directives Information Provided: No Advance Directives Date on File: 05/30/21 service: No Current occupational status: disabled Physical Exam ED Vital Signs: Vital Signs - 24 hr 03/09/23 20:31 03/10/23 00:18 Temperature 97.9 F 97.8 F Pulse Rate 99 74 Respiratory Rate 18 16 Blood Pressure 151/102 H 128/70 Pulse Oximetry 96 94 Oxygen Delivery Method Room Air Room Air BMI result Body Mass Index 29.8 Appearance: Alert. Oriented X3. No acute distress. ENT: Pharynx normal. Oral Mucosa moist Neck: Normal inspection. Neck supple. CVS: Normal heart rate and rhythm. Pulses normal. Respiratory: No respiratory distress. Equal air entry bilateral, no wheezing/rales/rhonchi Abdomen: Soft and nontender. Bowel sounds are present, Extremities: Right lower extremity slightly colder than the left dorsal pedal edema was present dorsalis pedis 2+ b/l, popliteal artery 2+ bilateral Neuro: Oriented X 3. No motor deficit. No sensory deficit.No cerebellar signs , cranial nerves II-XII intact Course Course Course Narrative: RME performed by Claire Retana PA-C. Patient is a 53 year old assigned male at presenting to the emergency department with worsening right lower leg pain. Patient states that he has a blood clot in his right leg, was given Eliquis, and now his leg hurts worse. Labs ordered. Patient placed back in the waiting room pending room availability and results. Medical Decision Making Medical Decision Making [facility] Narrative: Patient is smoker with claudication history ? arterial occlusion causing increased pain last 2 days in right leg which got worse today will do arterial Doppler patient already on Eliquis Arterial Doppler negative will discharge patient home advised to continue his tramadol Differential Diagnosis Differential Diagnoses: The differential diagnosis associated with the presentation includes Claudication/arterial occlusion/DVT Lab Data [facility] Lab Attestation statement: I reviewed the patient's lab results. 03/09/23 21:12 03/09/23 21:12 Labs: Lab Results 03/09/23 Range/Units 21:12 WBC 17.1 H (4.8-10.8) X10*3/uL RBC 4.68 (4.60-5.80) X10*6/uL Hgb 14.2 (14.0-18.0) g/dl Hct 42.8 (42.0-52.0) % MCV 91.5 (80.0-98.0) fL MCH 30.3 (27.0-33.0) pg MCHC 33.2 (31.0-36.0) g/dl RDW 13.9 (11.0-16.0) % Plt Count 379 (160-400) X10*3/uL MPV 8.0 L (9.4-12.4) fL Immature Gran % (Auto) 0.8 H (0.0-0.4) % Neut % (Auto) 73.9 H (45-73) % Lymph % (Auto) 18.3 L (20-40) % [place] % (Auto) 6.4 (2-11) % Eos % (Auto) 0.2 (0-4) % Baso % (Auto) 0.4 (0-2) % Lymph # (Auto) 3.1 (1.2-4.9) X10*3/uL [place] # (Auto) 1.1 (0.1-1.2) X10*3/uL Eos # (Auto) 0.0 (0.0-0.4) X10*3/uL Baso # (Auto) 0.1 (0.0-0.2) X10*3/uL Abs Immat Gran (auto) 0.13 H (0.00-0.03) X10*3/uL Absolute Neuts (auto) 12.7 H (2.0-8.3) x10*3/uL Absolute Nucleated RBC 0.000 (0.0-0.012) X10*3/uL Nucleated RBC % (auto) 0.0 (0.0-0.2) /100WBC PT 11.4 (11.1-13.3) SEC INR 0.9 (0.9-1.1) APTT 30.4 (26.0-36.4) SEC Sodium 138 (135-145) mmol/L Potassium 4.0 (3.3-5.1) mmol/L Chloride 101 (96-108) mmol/L Carbon Dioxide 28 (22-29) mmol/L Anion Gap 13 (12-20) BUN 13 (9-16) mg/dL Creatinine 0.69 (0.5-1.4) mg/dL Estim Creat Clear Calc 114.6 Estimated GFR > 60 Random Glucose 108 (60-115) mg/dL Calcium 9.5 (8.4-10.2) mg/dL Magnesium 2.2 (1.6-2.6) mg/dL Total Bilirubin 0.3 (0.0-1.0) mg/dL AST 16 (5-37) U/L ALT 15 (0-40) U/L Alkaline Phosphatase 60 (39-117) U/L Total Protein 7.3 (6.5-8.0) g/dL Albumin 4.2 (3.5-5.0) g/dL Independent Interpretation I performed an independent interpretation of an: Ultrasound Radiology Impression Discussion of test interpretation with radiology: I have reviewed the radiologist's reading. Radiologist Impression: US/US arterial duplex LE RT IMPRESSION: No evidence of hemodynamically significant stenosis within the right lower extremity arterial vasculature. Prescription Management I considered prescription management with: Pain Medication Discharge Plan Discharge Clinical Impression: Leg pain, right Patient Disposition: Home, Self-Care Instructions: Leg Pain (ED) Additional Instructions: Your pain in right leg is from resolving DVT blood , your circulation in the right leg is good Keep right leg elevated Continue taking medication Tramadol for pain Stop smoking Webster dolor en la pierna derecha se debe a la resoluci?n de la tricia de la TVP, webster circulaci?n en la pierna derecha es buena. Mantenga la pierna derecha elevada Continuar tomando medicaci?n tramadol para el dolor Torri de fumar Prescriptions: No Action Linzess 290 mcg capsule 290 mcg PO QAM Qty: 30 6RF famotidine 40 mg tablet 40 mg PO BEDTIME Qty: 90 1RF omeprazole 40 mg capsule,delayed release(DR/EC) 40 mg PO DAILY Qty: 90 1RF albuterol sulfate [Ventolin HFA] 90 mcg/actuation HFA aerosol inhaler 2 puff PO Q6H PRN (Reason: for dyspnea) Qty: 18 5RF Atrovent HFA 17 mcg/actuation HFA aerosol inhaler 2 puff inhalation QID 30 Days Qty: 12.9 11RF varenicline [Chantix] 1 mg tablet 1 mg PO BID 30 Days Qty: 60 3RF atorvastatin 10 mg tablet 10 mg PO BEDTIME amlodipine 5 mg tablet 5 mg PO DAILY baclofen 20 mg tablet 20 mg PO TID PRN (Reason: muscle spasm) metoprolol succinate 25 mg tablet extended release 24 hr 25 mg PO DAILY calcium carbonate-vitamin D3 [Oyster Shell Calcium-Vit D3] 500 mg-5 mcg (200 unit) tablet 1 tab PO BID cholecalciferol (vitamin D3) 50 mcg (2,000 unit) tablet 2,000 unit PO DAILY Combivent Respimat 20-100 mcg/actuation mist 1 puff inhalation Q6H Qty: 4 0RF Eliquis DVT-PE Treat 30D Start 5 mg (74 tabs) tablets,dose pack 5 mg PO BID Qty: 74 0RF Rx Instructions: 10mg BID for 7 days followed by 5mg BID azithromycin 250 mg tablet See Rx Instructions .ROUTE .COMPLEX Qty: 6 0RF Rx Instructions: For 250 mg dose pack: take 500 mg today (day 1), then 250 mg for 4 days (days 2-5) tramadol 50 mg tablet 50 mg PO Q8H PRN (Reason: postoperative pain) 3 Days Qty: 10 0RF Rx Instructions: do not take this medicine within 2 hours of HS. instead OTC Tylenol 500 1-2 tabs p.o. can be taken at night if his pain is severe. clotrimazole 1 % cream topical nystatin 100,000 unit/gram cream 1 appl topical TID Qty: 15 0RF Creon 24,000-76,000 -120,000 unit capsule,delayed release(DR/EC) 1 cap PO QID 30 Days Qty: 120 6RF Rx Instructions: administer with meals and/or snacks (DME) nebulizers Misc See Rx Instructions .Route Rx Instructions: As directed calcium carbonate 600 mg calcium (1,500 mg) tablet 600 mg PO BID peg 3350-electrolytes [Golytely] 236-22.74-6.74 -5.86 gram recon soln 240 ml PO Q10M 1 Days Qty: 4000 0RF Rx Instructions: until fecal effluent is clear; do not exceed a total volume of 2,000 mL magnesium citrate Solution 150 ml PO DAILY 2 Days Qty: 300 0RF Incruse Ellipta 62.5 mcg/actuation blister with device 1 inh inhalation DAILY 30 Days Qty: 30 11RF fluticasone furoate-vilanterol [Breo Ellipta] 200-25 mcg/dose blister with device 1 inh inhalation DAILY 30 Days Qty: 60 11RF varenicline [Chantix Starting Month Box] 0.5 mg (11)- 1 mg (42) tablets,dose pack See Rx Instructions PO PER PKG DIR Qty: 48 0RF Rx Instructions: PO PER PKG DIR guaifenesin 100 mg/5 mL liquid 200 mg PO Q4H PRN (Reason: cough) 14 Days Qty: 473 4RF ergocalciferol (vitamin D2) 1,250 mcg (50,000 unit) capsule 1,250 mcg PO QWEEK Januvia 25 mg tablet 25 mg PO QAM codeine-guaifenesin 10-100 mg/5 mL liquid 10 ml PO Q6H PRN (Reason: cough) losartan 25 mg tablet 25 mg PO QAM insulin glargine [Lantus Solostar U-100 Insulin] 100 unit/mL (3 mL) insulin pen 7 unit subcut BEDTIME metformin 1,000 mg tablet 1,000 mg PO roflumilast [Daliresp] 250 mcg tablet 250 mcg PO DAILY zafirlukast 20 mg tablet 20 mg PO BID Rx Instructions: must be taken on empty stomach, at least 1 hr before or 2 hrs after a meal/food montelukast 10 mg tablet 10 mg PO BEDTIME bisacodyl [Dulcolax (bisacodyl)] 5 mg tablet,delayed release (DR/EC) 10 mg PO BEDTIME 30 Days Qty: 60 6RF simethicone 180 mg capsule 180 mg PO QID 30 Days Qty: 120 3RF Rx Instructions: after meals alendronate 70 mg tablet 70 mg PO QWEEK bupropion HCl 75 mg tablet 150 mg PO BID 30 Days Qty: 120 6RF doxycycline monohydrate 100 mg tablet 100 mg PO BID 14 Days Qty: 28 0RF Print Language: Bulgarian
[2023-03-09 21:15] LABS: MANUAL DIFF FLAG NO
[2023-03-09 21:18] LABS: Basophils Absolute Auto 0.1 X10*3/uL (0.0-0.2); Basophils Percent Auto 0.4 % (0-2); Eosinophils Percent Auto 0.2 % (0-4); Hematocrit 42.8 % (42.0-52.0); Hemoglobin 14.2 g/dl (14.0-18.0); Imm Gran Abs Auto 0.13 X10*3/uL (0.00-0.03); Imm Gran Pct Auto 0.8 % (0.0-0.4); Lymphocytes Absolute Auto 3.1 X10*3/uL (1.2-4.9); Lymphocytes Percent Auto 18.3 % (20-40); Mean Corpuscular HGB Conc 33.2 g/dl (31.0-36.0); Mean Corpuscular Hemoglobin 30.3 pg (27.0-33.0); Mean Corpuscular Volume 91.5 fL (80.0-98.0); Monocytes Absolute Auto 1.1 X10*3/uL (0.1-1.2); Monocytes Percent Auto 6.4 % (2-11); Neutrophils Absolute Auto 12.7 x10*3/uL (2.0-8.3); Neutrophils Percent Auto 73.9 % (45-73); Platelet Count 379 X10*3/uL (160-400); Red Blood Count 4.68 X10*6/uL (4.60-5.80); Red Cell Distribution Width 13.9 % (11.0-16.0); White Blood Count 17.1 X10*3/uL (4.8-10.8)
[2023-03-09 21:44] LABS: INTERNATIONAL NORM RATIO 0.9 (0.9-1.1); Prothrombin Time 11.4 SEC (11.1-13.3)
[2023-03-09 21:47] LABS: Partial Thromboplastin Time 30.4 SEC (26.0-36.4)
[2023-03-09 21:49] LABS: Alanine Aminotransferase 15 U/L (0-40); Albumin Level 4.2 g/dL (3.5-5.0); Alkaline Phosphatase 60 U/L (39-117); Anion Gap 13 (12-20); Aspartate Amino Transferase 16 U/L (5-37); Bilirubin Total 0.3 mg/dL (0.0-1.0); Blood Urea Nitrogen 13 mg/dL (9-16); Calcium 9.5 mg/dL (8.4-10.2); Carbon Dioxide 28 mmol/L (22-29); Chloride 101 mmol/L (96-108); Creatinine Clr Calc Pharmacy 114.6; Estimated Glomerular Filt Rate > 60; Glucose Random 108 mg/dL (60-115); Magnesium 2.2 mg/dL (1.6-2.6); Sodium 138 mmol/L (135-145); Total Protein 7.3 g/dL (6.5-8.0)
--- NOTE | 2023-03-10 00:05 | PC.NURSE ---
pt came in for swelling/redness/pain of R. leg seen 03/07/23 for same; pt states not worsened just pain increased. +pulses. Dr. Contreras at bedside for primary eval.
[2023-03-10 00:18] VITALS: BP 128/70; PULSE 74; RESP 16; TEMP 36.6; O2SAT 94
--- NOTE | 2023-03-10 00:18 | PC.NURSE ---
pt to u/s at this time.
== END 2023-03-10 03:15 | disposition home or self-care (01) ==
PROVIDERS: Physician Assistant Medical; Emergency Provider Internal Medicine; PCP Student in an Organized Health Care Education/Training Program
DX: M79.604 Pain in right leg (principal); I10 Essential (primary) hypertension; E78.5 Hyperlipidemia, unspecified; J44.9 Chronic obstructive pulmonary disease, unspecified; F17.210 Nicotine dependence, cigarettes, uncomplicated; Z86.718 Personal history of other venous thrombosis and embolism; Z79.01 Long term (current) use of anticoagulants; Z79.02 Long term (current) use of antithrombotics/antiplatelets; Z79.899 Other long term (current) drug therapy
CPT/HCPCS: 36415; 80053; 83735; 85025; 85610; 85730; 93926; 99282; 99284

== ENCOUNTER → 2023-03-15 08:01 | Outpatient (REF) | payer MEDICAID, SELFPAY ==
--- NOTE | ~2023-03-15 | NM_ITS ---
EXAMINATION: RADIONUCLIDE SOLID FOOD GASTRIC EMPTYING 4-HOUR STUDY CLINICAL INFORMATION: Early satiety. COMPARISON: The previous study dated 10/31/2017 is available for comparison. TECHNIQUE: A standard meal consisting of 4 oz of Egg Beaters brand tagged with 950 microcuries Tc-99m Sulfur Colloid, 8 oz water and 2 slices of toast with jelly was administered orally to the patient. Images were obtained using a dual head gamma camera in the anterior and posterior projections over of the stomach immediately post ingestion and at hourly intervals up to 3 hours post ingestion. Images were not obtained at 4 hours due to the minimal retention at 3 hours. The anterior and posterior counts at each time interval were averaged using the geometric mean and expressed as percentage of the immediate post ingestion counts. FINDINGS: There is good visualization of activity in the stomach immediately post ingestion. As the study progresses, there is good clearance of activity from the stomach and visualization of progressively increasing small bowel activity. By the end of the study, there is almost no retention noted in the stomach. Retention in the stomach at each time interval was: 1 hour 30% (normal 37%-90%) 2 hours 10% (normal 30%-60%) 3 hours 2% 4 hours (Not Obtained) (normal 0%-10%) Compared to the previous study dated 10/31/2017, there has not been a significant change. NM/NM gastric emptying study IMPRESSION: Normal solid food gastric emptying study.
== END ==
LOC: HO.NUCMED 08:01
PROVIDERS: PCP Internal Medicine; Visit Provider Nurse Practitioner
DX: R68.81 Early satiety (principal)
CPT/HCPCS: 78264; A9541

== ENCOUNTER 2023-03-21 13:25 | Outpatient (AMB) | payer MEDICAID, SELFPAY ==
[2023-03-21 13:51] VITALS: BP 151/98; PULSE 87; BMI 27.6
--- NOTE | 2023-03-21 13:51 | MHC.OFFVIS ---
Intake Vital Signs 03/21/23 13:51 Height 5 ft 4 in Weight 161 lb BMI 27.6 BP 151/98 H Blood Pressure Location Rt brachial Position Sitting Pulse 87 Intake Visit Reasons: 5 week follow up Intake Note: Aldo presents in the office today in follow up of gastric emptying. CC: Patient doing well but continues to have pain from bilateral ribs. Denies having any new GI symptoms. Accompanied by: Self / Same As Patient Allergies ibuprofen [From Motrin] Allergy (Verified 03/26/23 14:15) Rash HPI 5 week follow up HPI Details Assessment & Plan (1) Tubular adenoma of colon: Onset Date: ~2019 Comment: 2022= 2 polyps repeat in 5 years: 2020=multiple large polyps and poor prep, was to be repeated in 6-12 months but pt keeps cancelling. Code(s): D12.6 - Benign neoplasm of colon, unspecified (2) Early satiety: Code(s): R68.81 - Early satiety Orders: Orders NM gastric emptyin g study Today R68.81 - Early sat iety Colonoscopy - GI U se Only Today Medications: New magnesium citrate 150 mL PO DAILY 2 days 300 mL 0RF Z12.11 - Encounter for screening for malignant neoplas m of colon peg 3350-electroly ubaldo 236-22.74-6.74 -5.86 gram (Golyt josephine) until feca l effluent is angelina r; do not exceed a total volume of 2 ,000 mL 240 mL PO Q10M 1 day 4,000 mL 0RF Z12.11 - Encounter for screening for malignant neoplas m of colon Patient Instructions: Aldo Breaux [place] dane medicamentos de la siguiente manera: 1. Linzess por la ma?jarad 2. 2 DOS bisacodilo antes de acostarse 3. simeticona antes de cada comida Me bell? un estudio de vaciado g?strico para becky si álvarez est?jeannie se est? vaciando correctamente. Quiero verte en 5 semanas. GASTRIC EMPTYING STUDY 03/15/23 FINDINGS: There is good visualization of activity in the stomach immediately post ingestion. As the study progresses, there is good clearance of activity from the stomach and visualization of progressively increasing small bowel activity. By the end of the study, there is almost no retention noted in the stomach. Retention in the stomach at each time interval was: 1 hour 30% (normal 37%-90%) 2 hours 10% (normal 30%-60%) 3 hours 2% 4 hours (Not Obtained) (normal 0%-10%) Compared to the previous study dated 10/31/2017, there has not been a significant change. NM/NM gastric emptying study IMPRESSION: Normal solid food gastric emptying study. COLONOSCOPY 01/24/23 Findings: Terminal Ileum-not intubated Cecum:normal Ascending Colon: x 4 sessile polyps 6-9 mm removed with cold snare, x2 of these were lifted with eleview injection Transverse Colon -normal Descending Colon:normal Sigmoid Colon:mild diverticulosis Rectum: Retroflexion with small internal hemorrhoids, grade I Anorectum - normal Impression and Post Procedure Diagnosis: poor prep polyps internal hemorrhoids diverticular disease Plan: High fiber diet leaflet Avoid straining at stool, epsom salts and sitz bath, anusol supps or cream Repeat Colonoscopy in 3-6 month or earlier if clinically indicated-complaince to prep next time BIOPSY Received: 01/24/23 Diagnosis Colon, ascending, polypectomies: - Fragments of tubular adenomata; negative for high-grade dysplasia or carcinoma. - Fragments of sessile serrated lesion/polyp(s); negative for cytologic dysplasia TODAYS VISIT [place] [facility] We review the prep and procedure, and it turns out he was eating the day of the prep and this is the reason he has (likely) failed to clear. I EMPHASIZE no solid foods, just clear liquids 24 hours before the procedure. He first says he had breakfast the prep day but it was at 7am, and then says he was eating throughout the day but nothing after the prep. Again I emphasize the instructions and we have him repeat verbalize this. Despite taking Linzess 290 in 2 bisacodyl in the evening he still not moving his bowels consistently and still has quite a bit of bloating. This is limiting his appetite. He sometimes will go 2 days without a bowel movement. At this point were going to have him take 3 bisacodyl at night, continue his Linzess and add Colace twice a day to see if we can get better affect. Return office visit in 6 months but also after the colonoscopy. [facility] Medical History Viral syndrome History of COVID-19 Leukocytosis Hyperlipidemia Personal history of nicotine dependence Back pain Arthritis Anxiety and depression Asthma History of kidney stones Chronic abdominal pain Tubular adenoma of colon (~2019) Asthma-COPD overlap syndrome Osteoporosis (~2001) Irritable bowel syndrome GERD (gastroesophageal reflux disease) COPD (chronic obstructive pulmonary disease) HTN (hypertension) Surgical History History of bilateral hip replacements History of colonoscopy with polypectomy (~2020) History of colonoscopy (~2005) History of surgery on right wrist (~2014) History of hip surgery (~2001) S/P extracorporeal shock wave therapy (~2013) History of hydrocelectomy Shoulder symptoms with history of shoulder arthroplasty Family History Father No problems noted. Mother No problems noted. Son No problems noted. Daughter No problems noted. Social History Unable to assess alcohol history related to: Unknown Alcohol intake: unknown Patient Tobacco Use Status: Current everyday Tobacco user Tobacco use type: Cigarette Cigarette Packs Per Day: 0.5 Cigarettes Per Day: 7 Years Smoked: (onset 14yo, 1/2-3/4ppd x 37yrs, 23pyh) Second Hand Smoke Exposure: No Advance Directives Date on File: 05/30/21 service: No Current occupational status: disabled Review of Systems Const Denies fatigue, Denies fever(s), Denies night sweats, Denies poor appetite and Denies weight loss ENT Reports Normal hearing present, Denies dental pain, Denies dysphagia, Denies hearing loss, Denies mouth pain, Denies odynophagia, Denies throat swelling, Denies tongue swelling and Reports other (Dentition adequate) Card Reports no additional complaints Resp Reports no additional complaints GI Denies abdominal pain, Denies melena, Denies bloating, Denies hematochezia, Reports constipation, Denies GI cramping, Denies dysphagia, Denies excessive flatus, Denies early satiety, Reports heartburn, Denies diarrhea, Denies nausea, Denies odynophagia, Denies vomiting and Denies hematemesis Skin/Breast Denies pruritus, Denies lesions, Denies rash and Denies jaundice Neuro Reports Normal hearing present and Denies Abnormal speech present Endo Denies fatigue Aller/Immun Denies throat swelling and Denies tongue swelling Physical Exam Vital Signs: Last Vital Signs Pulse 87 03/21/23 13:51 BP 151/98 H 03/21/23 13:51 BMI result Body Mass Index 27.6 Const General: cooperative, no acute distress, well developed and well groomed Nutritional Appearance: average body habitus and well nourished Orientation/consciousness: oriented to person, oriented to place and oriented to time Limitations: language barrier and wheelchair HEENT Head: Yes normocephalic and Yes atraumatic Eyes General: appearance normal, both eyes and all related structures Pupils: Equal, round and reactive pupils present Neck Neck: Yes normal visual inspection and Yes no lymphadenopathy Thyroid: Thyroid normal Resp Effort & Inspection: normal respiratory effort and able to speak in complete sentences Auscultation: clear to auscultation bilaterally Cardio Rate: regular rate Rhythm: regular rhythm Heart sounds: Normal, physiologic split S2 sound present Peripheral pulses: radial pulses present and posterior tibial pulses present GI Inspection: No distended and No Abdominal panniculus present Palpation (GI): Soft to palpation, nontender, no guarding, not rigid and No hepatosplenomegaly present Percussion: Yes normal to percussion Auscultation: normal bowel sounds Rectal Exam - Male: Yes deferred Skin General skin exam: no rashes or lesions noted, turgor normal, skin not dry, no jaundice, No spider nevi and no striae Rashes: no rashes Nails: normal Neuro General: oriented to person, oriented to place and oriented to time Cranial nerves: Yes Equal, round and reactive pupils present and Yes Normal hearing present Speech: No Abnormal speech present Extrem General: Yes normal to inspection, No clubbing, No cyanosis and No edema Psych Appearance: grossly normal and well kempt Mental Status: mental status grossly normal Speech and movement: Normal speech and movement present Affect: normal affect Attitude: cooperative Thought process: Normal thought process present and not confabulating Thought content: Normal thought content present Insight: Limited insight present (Psych) Judgement: Limited judgement present (Psych) Assessment & Plan Assessment & Plan (1) Tubular adenoma of colon: Onset Date: ~2019 Comment: 2022= 2 polyps repeat in 5 years: 2020=multiple large polyps and poor prep, was to be repeated in 6-12 months but pt keeps cancelling. Code(s): D12.6 - Benign neoplasm of colon, unspecified (2) GERD (gastroesophageal reflux disease): Code(s): K21.9 - Gastro-esophageal reflux disease without esophagitis (3) Chronic idiopathic constipation: Code(s): K59.04 - Chronic idiopathic constipation Plan [place] [employer] [employer] We review the prep and procedure, and it turns out he was eating the day of the prep and this is the reason he has (likely) failed to clear. I EMPHASIZE no solid foods, just clear liquids 24 hours before the procedure. He first says he had breakfast the prep day but it was at 7am, and then says he was eating throughout the day but nothing after the prep. Again I emphasize the instructions and we have him repeat verbalize this. Despite taking Linzess 290 in 2 bisacodyl in the evening he still not moving his bowels consistently and still has quite a bit of bloating. This is limiting his appetite. He sometimes will go 2 days without a bowel movement. At this point were going to have him take 3 bisacodyl at night, continue his Linzess and add Colace twice a day to see if we can get better affect. Return office visit in 6 months but also after the colonoscopy Orders: Orders Colonoscopy - GI Use Only 03/21/23 D12.6 - Benign neoplasm of colon, unspecified Medications: New docusate sodium (Colace) 100 mg PO .bid with food 60 caps 6RF 30 days Changed From bisacodyl 10 mg (2 x 5 mg) PO BEDTIME 30 days 60 tabs 6RF K59.04 - Chronic idiopathic constipation To bisacodyl (Dulcolax (bisacodyl)) 15 mg (3 x 5 mg) PO BEDTIME 120 tabs 6RF 30 days K59.04 - Chronic idiopathic constipation Refilled famotidine 40 mg PO BEDTIME 90 tabs 1RF linaclotide (Linzess) 290 mcg PO QAM 30 caps 6RF simethicone after meals 180 mg PO QID 120 caps 3RF 30 days peg 3350-electrolytes 236-22.74-6.74 -5.86 gram (Golytely) until fecal effluent is clear; do not exceed a total volume of 2,000 mL 240 mL PO Q10M 4,000 mL 0RF 1 day Z12.11 - Encounter for screening for malignant neoplasm of colon bisacodyl (Dulcolax (bisacodyl)) 10 mg (2 x 5 mg) PO BEDTIME 60 tabs 6RF 30 days K59.04 - Chronic idiopathic constipation akgfip-owuaxofm-siaehoa 24,000-76,000 -120,000 unit (Creon) administer with meals and/or snacks 1 cap PO QID 120 caps 6RF 30 days K58.9 - Irritable bowel syndrome without diarrhea Quality Reporting (2019) Adult ([facility] 13805/10/68) Smoking risk assessment performed?: Yes Patient Tobacco Use Status: Current everyday Tobacco user Coding Level of Care Code Est Pt Level 3 (81709) Diagnoses Tubular adenoma of colon D12.6 GERD (gastroesophageal reflux disease) K21.9 Chronic idiopathic constipation K59.04
== END 2023-03-21 14:29 | disposition home or self-care (01) ==
PROVIDERS: PCP Internal Medicine; Visit Provider Nurse Practitioner
DX: D12.6 Benign neoplasm of colon, unspecified (principal); K21.9 Gastro-esophageal reflux disease without esophagitis; K59.04 Chronic idiopathic constipation
CPT/HCPCS: 99213

== ENCOUNTER → 2023-03-21 13:25 | Outpatient (BNVA) | payer MEDICAID, SELFPAY | PROVIDERS: PCP Internal Medicine; Visit Provider Nurse Practitioner | DX: K59.04 Chronic idiopathic constipation (principal); K21.9 Gastro-esophageal reflux disease without esophagitis; D12.6 Benign neoplasm of colon, unspecified | CPT/HCPCS: 99212 ==

== ENCOUNTER 2023-03-26 13:42 | Outpatient (AMB) | payer MEDICAID, SELFPAY ==
[2023-03-26 14:12] VITALS: BMI 27.6
--- NOTE | 2023-03-26 14:12 | MHC.OFFVIS ---
Intake Vital Signs 03/26/23 14:12 Height 5 ft 4 in Weight 161 lb BMI 27.6 Handedness Right Intake Visit Reasons: NPatient Left hand numbness&tingling Intake Note: Aldo is a 53 year old male who presents today as a new patient for a evaluation of his left hand numbness and tingling. Patient reports ongoing numbness for 3 + months. He states that his middle finger doesn't bend like the other fingers. Patient states that his numbness is all over his hand not in specific areas. Allergies ibuprofen [From Motrin] Allergy (Verified 03/26/23 14:15) Rash HPI NPatient Left hand numbness&tingling HPI Details 53-year-old male, who is [place] speaking, presents in the office today, as a new patient, for an evaluation of left hand numbness and tingling. The patient reports having ongoing numbness for over 3 months. He states his middle finger does not bend like his other digits. He claims to have numbness over his entire left hand. [facility] Medical History Viral syndrome History of COVID-19 Leukocytosis Hyperlipidemia Personal history of nicotine dependence Back pain Arthritis Anxiety and depression Asthma History of kidney stones Chronic abdominal pain Tubular adenoma of colon (~2019) Asthma-COPD overlap syndrome Osteoporosis (~2001) Irritable bowel syndrome GERD (gastroesophageal reflux disease) COPD (chronic obstructive pulmonary disease) HTN (hypertension) Surgical History History of bilateral hip replacements History of colonoscopy with polypectomy (~2020) History of colonoscopy (~2005) History of surgery on right wrist (~2014) History of hip surgery (~2001) S/P extracorporeal shock wave therapy (~2013) History of hydrocelectomy Shoulder symptoms with history of shoulder arthroplasty Family History Father No problems noted. Mother No problems noted. Son No problems noted. Daughter No problems noted. Social History Unable to assess alcohol history related to: Unknown Alcohol intake: unknown Patient Tobacco Use Status: Current everyday Tobacco user Tobacco use type: Cigarette Cigarette Packs Per Day: 0.5 Cigarettes Per Day: 7 Years Smoked: (onset 14yo, 1/2-3/4ppd x 37yrs, 23pyh) Second Hand Smoke Exposure: No Advance Directives Date on File: 05/30/21 service: No Current occupational status: disabled Review of Systems Const All systems reviewed & are unremarkable except as noted in HPI and below Physical Exam Vital Signs: BMI result Body Mass Index 27.6 Const General: cooperative and no acute distress Orientation/consciousness: patient oriented x3 Resp Effort & Inspection: normal respiratory effort and able to speak in complete sentences Cardio Peripheral pulses: Peripheral pulses 2+ throughout Skin General skin exam: no rashes or lesions noted Neuro General: patient oriented x3 Extrem Other: Left hand: Normal to inspection. No ecchymosis, erythema, or edema. Able to make a full fist with abduction, adduction, and finger cross. Mild flattening with okay sign and thumbs up. Reports intermittent numbness throughout all digits on the volar aspect of the left hand. Capillary refill is brisk. Assessment & Plan Assessment & Plan (1) Carpal tunnel syndrome of left wrist: Code(s): G56.02 - Carpal tunnel syndrome, left upper limb Plan Mr. Breaux is a 53-year-old male, who is [place] speaking, presents in the office today, as a new patient, for an evaluation of left hand numbness and tingling. The patient reports having ongoing numbness for over 3 months. He states his middle finger does not bend like his other digits. He claims to have numbness over his entire left hand. The patient will be referred for an EMG for further evaluation of the numbness and tingling in the left hand. Follow up will be after the EMG is obtained, or sooner if needed. Orders: Orders NE electromyogram (EMG) 03/26/23 G56.02 - Carpal tunnel syndrome, left upper limb Patient Instructions: Scribed for April Pritchett PA-C by Beverly Brennan medical assistant secretary, on 03/26/2023 at 1:49 pm, EST. Quality Reporting (2019) Adult ([facility] 138/05/10/68) Smoking risk assessment performed?: Yes Patient Tobacco Use Status: Current everyday Tobacco user Coding Level of Care Code New Pt Level 4 (69679) Diagnoses Carpal tunnel syndrome of left wrist G56.02
== END 2023-03-26 14:32 | disposition home or self-care (01) ==
PROVIDERS: PCP Internal Medicine; Visit Provider Physician Assistant
DX: G56.02 Carpal tunnel syndrome, left upper limb (principal)
CPT/HCPCS: 99203

== ENCOUNTER → 2023-03-26 13:42 | Outpatient (BNVA) | payer MEDICAID, SELFPAY | PROVIDERS: PCP Internal Medicine; Visit Provider Physician Assistant | DX: G56.02 Carpal tunnel syndrome, left upper limb (principal) | CPT/HCPCS: 99212 ==

== ENCOUNTER 2023-06-14 14:08 | Outpatient (AMB) | payer MEDICAID, SELFPAY ==
[2023-06-14 14:11] VITALS: PULSE 90; O2SAT 93; BMI 27.6
--- NOTE | 2023-06-14 14:11 | MHC.OFFVIS ---
Intake Vital Signs 06/14/23 14:11 Height 5 ft 4 in Weight 160 lb 14.999 oz BMI 27.6 Pulse 90 Pulse Source Pulse Oximeter Pulse Oximetry (%) 93 Oxygen Delivery Method Room Air Intake Visit Reasons: COPD Code Enforcement Officer Required: No Allergies ibuprofen [From Motrin] Allergy (Verified 06/14/23 14:12) Rash HPI HPI Comments History of Present Illness Details The patient is a 53-year-old gentleman with known tobacco dependency since asthma COPD overlap syndrome. The patient continues to have significant shortness of breath and wheezing. Moderate severity. But, overall better. he has been on chronic steroids. He has not been able to go below 20 mg. he does have productive sputum, which is whitish in color. Associated with shortness of breath. He has gained some weight due to the prednisone. At this point the patient will be a good candidate for Daliresp. We also talked about smoking cessation and the importance to quit. He has been on Chantix and appears to be working. he is going to continue on Chantix at this time. 08/28/2022 the patient is here for pulmonary follow-up visit. Overall he is doing a little better from a respiratory status. However, patient developed some compression fractures. He has significant osteoporosis due to his chronic prednisone use. We tried decreasing his prednisone dose however, the patient has frequent exacerbations. He is also on chronic prednisone likely prednisone dependent. We did try Xolair but the patient did not want to take the sections. We can have him start Daliresp to see if this helps decrease the need for prednisone. However, really what is going to be most important for him to quit smoking and the patient is not willing to quit altogether. He did cut down which is good. I did provide him with 1 mg prednisone tablets. He can decrease by 1 mg every 1 week to try to come down to at least 10 mg daily. At that point will try to get him a little lower if possible although likely will require chronic dose. He is going to continue his respiratory therapy. Will try to simplify his regimen by placing him on Trelegy. He needs to be careful not to over medicate with inhalers. 10/20/2022 the patient is here for pulmonary follow-up visit. He is complaining of significant chest congestion. Difficult to expectorate. Moderate severity. Unfortunately when he tries to cough he started developing significant abdominal discomfort. Then, this results in significant discomfort and pain and sometimes he can even sleep. Sometimes he has to cry. The patient is uncomfortable overall. Unfortunately he continues to smoke cigarettes. He has been trying to cut down although is still very difficult for him. Otherwise been using nebulized therapy. We did review his imaging studies. His last CT scan was back in March demonstrating evidence of bronchitis and some bronchiectatic changes at the bases. All some some mosaic pattern. We did talk about considering bronchoscopy to further address his underlying chronic bronchitis and assess for any smoldering infections. In addition to this the patient does complaint of significant abdominal distention. He does have diabetes and is at risk for gastroparesis. Therefore we will increase his pulmonary toilet he agent to 500 mg 3 times a week. 03/02/2013 The patient is here for a pulmonary follow-up visit. Still complaining of chest tightness and wheezing. Has been using the combivent too much.. He has been on the azithromycin 3 times a week. She did not get the Trelegy inhaler as it was not covered. Therefore will had sent for Breo and Incruse that he can take daily. But he was only using the Incruse. Unfortunately does smoke cigarettes. He did have some success with the chantix, but, them stopped it due to adverse side effects including headache. He will go ahaed and retry it at a lower dose. Otherwise if it is not better, he will start Wellbutrim.He has been struggling to quit. We had talked about a bronchoscopy but the patient failed to show up. This point will hold off any bronchoscopy set this time. The patient needs to do a better job with adherence. He still continues to be on prednisone. In the meantime, he did tell me he is having some SSCP with exertion. No CP at this time. Has not had a recent cardiac workup. Will follow-up in 3-4 months. 06/14/2023 the patient is here for pulmonary follow-up visit. He continues to complain of the cough which is productive in nature. Moderate severity. Associated with left-sided pleuritic pain. Not sure where the pain is coming from. We did review his CTA that he had back in February demonstrating no pleural-based disease or anything to explain the left-sided discomfort. He does have significant bronchitis with mucus plugging in does have an area of atelectasis in the lingular area. We had scheduled him for bronchoscopy a couple times in the past but he would no-show to the procedures. Therefore we no longer schedule him for bronchoscopy. Since the patient is having worsening symptoms will give him 1 more opportunity to have the bronchoscopy. The patient also should continue with the lung cancer screening program. Right now he has not due till the winter of 2023. regards his medications the patient had been on Breo and Incruse. He feels the Spiriva had been working better than Incruse. Therefore we can switch him over this time. Still, explained to him that the inhalers not going to work if he continues to smoke cigarettes. He is also having significant back pain. Likely due to his significant bone disease from his chronic prednisone use. He is going to try to cut down some. [facility] Medical History (Updated 06/14/23 @ 23:15 by Armaan Elizabeth MD) Atelectasis Viral syndrome History of COVID-19 Leukocytosis Hyperlipidemia Personal history of nicotine dependence Back pain Arthritis Anxiety and depression Asthma History of kidney stones Chronic abdominal pain Tubular adenoma of colon (~2019) Asthma-COPD overlap syndrome Osteoporosis (~2001) Irritable bowel syndrome GERD (gastroesophageal reflux disease) COPD (chronic obstructive pulmonary disease) HTN (hypertension) Surgical History History of bilateral hip replacements History of colonoscopy with polypectomy (~2020) History of colonoscopy (~2005) History of surgery on right wrist (~2014) History of hip surgery (~2001) S/P extracorporeal shock wave therapy (~2013) History of hydrocelectomy Shoulder symptoms with history of shoulder arthroplasty Family History Father No problems noted. Mother No problems noted. Son No problems noted. Daughter No problems noted. Social History Unable to assess alcohol history related to: Unknown Alcohol intake: unknown Patient Tobacco Use Status: Current everyday Tobacco user Tobacco use type: Cigarette Cigarette Packs Per Day: 0.5 Cigarettes Per Day: 7 Years Smoked: (onset 14yo, 1/2-3/4ppd x 37yrs, 23pyh) Second Hand Smoke Exposure: No Advance Directives Date on File: 05/30/21 service: No Current occupational status: disabled Review of Systems Const Denies chills, Denies difficulty sleeping, Reports fatigue, Denies fever(s), Reports headache(s) and Denies night sweats ENT Denies change in voice, Reports headache(s), Denies lip swelling, Denies mouth pain, Reports nasal congestion, Reports nasal discharge and Denies tongue swelling Card Reports leg edema and Reports dyspnea on exertion Resp Reports chest congestion, Reports cough, Denies hemoptysis, Reports dyspnea on exertion and Reports wheezing GI Reports abdominal pain and Reports bloating Musc Reports as per HPI and Reports back pain Neuro Denies Neuro-related abnormal movements and Reports headache(s) Psych Denies no additional complaints Endo Reports fatigue Jamie/Lymph Denies easy bleeding and Denies lymphadenopathy Aller/Immun Denies lip swelling, Denies tongue swelling and Reports wheezing Physical Exam Vital Signs: Last Vital Signs Pulse 90 06/14/23 14:11 Pulse Ox 93 06/14/23 14:11 Oxygen Delivery Method Room Air 06/14/23 14:11 BMI result Body Mass Index 27.6 Const General: alert and in distress mild and respiratory Neck Neck: Yes normal visual inspection, Yes full ROM and Yes no lymphadenopathy Chest Chest palpation & inspection: normal inspection of the chest Resp Effort & Inspection: prolonged expiratory phase Auscultation: no crackles, no wheezes and diminished lung sounds Cardio Rate: regular rate Rhythm: regular rhythm Heart sounds: S1 normal heart sound present and S2 normal heart sound present GI Inspection: Yes distended Palpation (GI): nontender Skin General skin exam: rashes and/or lesions noted Assessment & Plan Assessment & Plan (1) COPD (chronic obstructive pulmonary disease): Code(s): J44.9 - Chronic obstructive pulmonary disease, unspecified Qualifiers: COPD type: COPD with acute exacerbation Qualified Code(s): J44.1 - Chronic obstructive pulmonary disease with (acute) exacerbation (2) Tobacco dependence: Code(s): F17.200 - Nicotine dependence, unspecified, uncomplicated (3) Chest pain: Code(s): R07.9 - Chest pain, unspecified Qualifiers: Chest pain type: unspecified Qualified Code(s): R07.9 - Chest pain, unspecified (4) Atelectasis: Code(s): J98.11 - Atelectasis Plan continue Accolate 20mg BID stop Incruse start Spiriva handihaler continue Breo continue Combivent continue Azithromycin 500mg MWF LDCT program short-acting beta agonist as needed start Gabapentin at night restart Daliresp 250mcg prednisone 10mg baseline, will cut down Plan for bronchoscopy to assess atelectasis and chronic bronchitis. He will need to stop the Eliquis 3 days prior follow-up 3-4 months Medications: New tiotropium bromide (Spiriva with HandiHaler) puncture 1 cap using device; one dose = 2 inhalations 1 cap inhalation DAILY 30 days 30 inhalations 11RF gabapentin 300 mg PO BEDTIME 30 days 30 caps 11RF Changed From roflumilast (Daliresp) 250 mcg PO DAILY J44.9 - Chronic obstructive pulmonary disease, unspecified To roflumilast (Daliresp) 250 mcg PO DAILY 30 days 30 tabs 5RF J44.9 - Chronic obstructive pulmonary disease, unspecified Quality Reporting (2019) Adult ([facility] 138/05/10/68) Smoking risk assessment performed?: Yes Patient Tobacco Use Status: Current everyday Tobacco user Coding Level of Care Code Est Pt Level 4 (61656) Diagnoses Chronic obstructive pulmonary disease with acute exacerbation J44.1 COPD type: COPD with acute exacerbation Tobacco dependence F17.200 Chest pain, unspecified type R07.9 Chest pain type: unspecified Atelectasis J98.11 Time Spent (min) 18
== END 2023-06-14 14:26 | disposition home or self-care (01) ==
PROVIDERS: PCP Student in an Organized Health Care Education/Training Program; Referring Provider Student in an Organized Health Care Education/Training Program; Visit Provider Hospitalist
DX: J44.1 Chronic obstructive pulmonary disease with (acute) exacerbation (principal); F17.200 Nicotine dependence, unspecified, uncomplicated; R07.9 Chest pain, unspecified; J98.11 Atelectasis
CPT/HCPCS: 99214

== ENCOUNTER → 2023-06-14 14:08 | Outpatient (BNVA) | payer MEDICAID, SELFPAY | PROVIDERS: PCP Student in an Organized Health Care Education/Training Program; Visit Provider Hospitalist | DX: J44.1 Chronic obstructive pulmonary disease with (acute) exacerbation (principal); J98.11 Atelectasis; R07.9 Chest pain, unspecified; F17.210 Nicotine dependence, cigarettes, uncomplicated | CPT/HCPCS: 99212 ==

== ENCOUNTER 2023-06-21 13:01 | Outpatient (AMB) | payer MEDICAID, SELFPAY ==
[2023-06-21 13:21] VITALS: BP 150/80; PULSE 91; BMI 29.6
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
== END 2023-06-21 13:40 | disposition home or self-care (01) ==
PROVIDERS: PCP Internal Medicine; Visit Provider Internal Medicine Endocrinology, Diabetes & Metabolism
DX: M81.0 Age-related osteoporosis without current pathological fracture (principal)
CPT/HCPCS: 99213

== ENCOUNTER → 2023-06-21 13:01 | Outpatient (BNVA) | payer MEDICAID, SELFPAY | PROVIDERS: PCP Internal Medicine; Visit Provider Internal Medicine Endocrinology, Diabetes & Metabolism | DX: G56.02 Carpal tunnel syndrome, left upper limb (principal); M81.0 Age-related osteoporosis without current pathological fracture | CPT/HCPCS: 99212 ==

== ENCOUNTER 2023-06-21 14:16 | Outpatient (AMB) | payer MEDICAID, SELFPAY ==
--- NOTE | 2023-06-21 14:53 | A.OFFVIS_ITS ---
Intake Intake Visit Reasons: ov-Carpal tunnel syndrome of left wrist Intake Note: Pt presents to the office today for carpal tunnel syndrome of left wrist. Pt states he has pain in his fingers and has numbness and tingling in his hand and fingers. Allergies ibuprofen [From Motrin] Allergy (Verified 06/21/23 14:53) Rash HPI ov-Carpal tunnel syndrome of left wrist HPI Details 53-year-old male, who is Latvian speakin g, presents in the office today for a follow up of left wrist pain. I last saw the patient in the office on 03/26/2023. He was ordered for an EMG study for further evaluation of possible carpal tunnel. The EMG study has not been obtained at this time. While in the office today that patient reports numbness and tingling in his left hand and fingers. [facility] Medical History Atelectasis Viral syndrome History of COVID-19 Leukocytosis Hyperlipidemia Personal history of nicotine dependence Back pain Arthritis Anxiety and depression Asthma History of kidney stones Chronic abdominal pain Tubular adenoma of colon (~2019) Asthma-COPD overlap syndrome Osteoporosis (~2001) Irritable bowel syndrome GERD (gastroesophageal reflux disease) COPD (chronic obstructive pulmonary disease) HTN (hypertension) Surgical History History of bilateral hip replacements History of colonoscopy with polypectomy (~2020) History of colonoscopy (~2005) History of surgery on right wrist (~2014) History of hip surgery (~2001) S/P extracorporeal shock wave therapy (~2013) History of hydrocelectomy Shoulder symptoms with history of shoulder arthroplasty Family History Father No problems noted. Mother No problems noted. Son No problems noted. Daughter No problems noted. Social History Unable to assess alcohol history related to: Unknown Alcohol intake: unknown Patient Tobacco Use Status: Current everyday Tobacco user Tobacco use type: Cigarette Cigarette Packs Per Day: 0.5 Cigarettes Per Day: 7 Years Smoked: (onset 14yo, 1/2-3/4ppd x 37yrs, 23pyh) Second Hand Smoke Exposure: No Advance Directives Date on File: 05/30/21 service: No Current occupational status: disabled Review of Systems Const All systems reviewed & are unremarkable except as noted in HPI and below Physical Exam Const General: cooperative and no acute distress Orientation/consciousness: patient oriented x3 Resp Effort & Inspection: normal respiratory effort and able to speak in complete sentences Cardio Peripheral pulses: Peripheral pulses 2+ throughout Skin General skin exam: no rashes or lesions noted Neuro General: patient oriented x3 Extrem Other: Left hand: Normal to inspection. No ecchymosis, erythema, or edema. Able to make a full fist with abduction, adduction, and finger cross. Mild flattening with okay sign and thumbs up. Reports intermittent numbness throughout all digits on the volar aspect of the left hand. Capillary refill is brisk. Assessment & Plan Assessment & Plan (1) Carpal tunnel syndrome of left wrist: Code(s): G56.02 - Carpal tunnel syndrome, left upper limb Plan Mr. Breaux is a 53-year-old male, who is Latvian speaking, presents in the of [facility] today for a follow up of left wrist pain. I last saw the patient in the office on 03/26/2023. He was ordered for an EMG study for further evaluation of possible carpal tunnel. The EMG study has not been obtained at this time. While in the office today that patient reports numbness and tingling in his left hand and fingers. A new referral for an EMG study was placed while in the office today. Follow up will be after the EMG is obtained, or sooner if needed. Orders: Orders NE electromyogram (EMG) 06/21/23 G56.02 - Carpal tunnel syndrome, left upper limb Patient Instructions: Scribed by Beverly Brennan medical legal investigator, for April Pritchett PA-C on 06/21/2023 at 2:59 pm, EST. Quality Reporting (2019) Adult ([facility] 138/05/10/68) Smoking risk assessment performed?: Yes Patient Tobacco Use Status: Current everyday Tobacco user Coding Level of Care Code Est Pt Level 3 (71773) Diagnoses Carpal tunnel syndrome of left wrist G56.02
== END 2023-06-21 15:06 | disposition home or self-care (01) ==
LOC: HO.HOS 14:17
PROVIDERS: PCP Internal Medicine; Visit Provider Physician Assistant
DX: G56.02 Carpal tunnel syndrome, left upper limb (principal)
CPT/HCPCS: 99213

== ENCOUNTER 2023-06-26 15:02 | Outpatient (REF) | payer MEDICAID, SELFPAY ==
[2023-06-27 21:43] LABS: Creatinine, 24Hr Urine 1.1 G/Day (1.0-2.0); Total Volume 24 Hour Urine 2050 mL
[2023-06-28 21:23] LABS: Calcium, 24 Hr Urine 336 mg/24 h; Calcium/Creatinine Ratio 288 mg/g creat (30-210); Creatinine 24Hr Urine 1.17 g/24 h (0.50-2.15)
== END 2023-06-26 15:03 | disposition home or self-care (01) ==
LOC: HO.LNP 15:02
PROVIDERS: Visit Provider Internal Medicine Endocrinology, Diabetes & Metabolism
DX: M81.0 Age-related osteoporosis without current pathological fracture (principal)
CPT/HCPCS: 82340; 82570

== ENCOUNTER 2023-07-10 09:45 | Outpatient (REF) | payer MEDICAID, SELFPAY ==
--- NOTE | 2023-07-10 09:54 | EMG_ITS ---
Left median and ulnar motor and sensory studies were performed. Left radial and median and lateral antecubital brachial sensory studies were performed and paraspinal muscles were tested with a needle. IMPRESSION: 1. [id number] left median neuropathy across carpal tunnel. 2. 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 MD REBEKAH Chapman/GEOFF / [id number]
== END 2023-07-10 09:46 | disposition home or self-care (01) ==
LOC: HO.NEURO 09:45
PROVIDERS: PCP Internal Medicine; Visit Provider Physician Assistant
DX: G56.02 Carpal tunnel syndrome, left upper limb (principal)
CPT/HCPCS: 95886; 95910

== ENCOUNTER → 2023-07-19 10:53 | Outpatient (REF) | payer MEDICAID, SELFPAY ==
--- NOTE | 2023-07-19 10:56 | CA_ITS ---
Acquisition Time: 2023-07-19 11:02:10 Total Exercise Time: 00:04:34 Test Indications: CP, SOB Medications: SEE H Protocol: CHARISMA Max HR: 130 BPM 78% of Pred: 165 BPM Max BP: 168/082 mmHG Max Work Load: 6.4 METS Exericse stress test exercise 4 min 34 sec of Charisma protocol achieving 78% MPHR, with moderate SOB, 5/10 chest pressure at baseline no change, with isolated PACs, with normtensive resposne to exercise, with out EKG changes at achieved workload. Wire from stress machine to amphlifier box connector broke as patient transfered to bed, Echo images obtained by tech at rest and immedialtely post peak exercise. Definity contrast used. Test reviewed with Dr. Luque. 5.5 min recovery blood pressure 132/78. heart rate 100 bpm. Sinus rhythm by ausculation. mild SOB. 5/10 chest pressure 11 minutes recovery blood pressure 112/78 heart rate 88 bpm. Sinus rhythm by ausculation. mild SOB. 5/10 chest pressure. Breathing at baseline Referred By: Armaan Elizabeth Overread By: Erin Lima
== END ==
LOC: HO.CARD 10:53
PROVIDERS: PCP Student in an Organized Health Care Education/Training Program; Visit Provider Hospitalist
DX: R07.9 Chest pain, unspecified (principal)
CPT/HCPCS: 93350; Q9957

== ENCOUNTER → 2023-07-19 10:56 | Outpatient (BNV) | payer MEDICAID, SELFPAY | PROVIDERS: PCP Student in an Organized Health Care Education/Training Program; Visit Provider Nurse Practitioner | DX: R07.9 Chest pain, unspecified (principal); R06.02 Shortness of breath | CPT/HCPCS: 93016; 93018; 93350; 93352 ==

== ENCOUNTER 2023-07-26 12:20 | Outpatient (REF) | payer MEDICAID, SELFPAY ==
--- NOTE | ~2023-07-26 | XR_ITS ---
EXAMINATION: XR RIBS, BILATERAL CLINICAL INFORMATION: Rib pain for one year COMPARISON: None available. TECHNIQUE: 3 views of the bilateral ribs were obtained. FINDINGS: Lungs are clear. No consolidation, pneumothorax, or pleural effusion. The cardiomediastinal silhouette and pulmonary vasculature are normal. Osseous structures are unremarkable. Ribs are intact. No fractures are identified. Vertebral body cement is noted. Partially visualized left shoulder joint osteoarthritis. XR/XR ribs BI min 4V w CXR1V IMPRESSION: * No acute cardiopulmonary disease. * No displaced rib fractures.
== END 2023-07-26 12:21 | disposition home or self-care (01) ==
LOC: HO.HHCX 12:20
PROVIDERS: Visit Provider Family Medicine
DX: R07.81 Pleurodynia (principal)
CPT/HCPCS: 71111

== ENCOUNTER → 2023-07-27 15:31 | Outpatient (REF) | payer MEDICAID, SELFPAY ==
--- NOTE | 2023-07-27 15:44 | ECG_ITS ---
Test Reason : PREOP Blood Pressure : / mmHG Vent. Rate : 092 BPM Atrial Rate : 092 BPM P-R Int : 132 ms QRS Dur : 066 ms QT Int : 330 ms P-R-T Axes : 066 043 076 degrees QTc Int : 408 ms Normal sinus rhythm Nonspecific T wave abnormality Abnormal ECG When compared with ECG of 06-MAR-2023 23:53, No significant change was found Referred By: Bong Sahni Electronically Signed By:Sherwin Thomas
[2023-07-27 18:30] LABS: Basophils Absolute Auto 0.1 X10*3/uL (0.0-0.2); Basophils Percent Auto 0.4 % (0-2); Eosinophils Absolute Auto 0.1 X10*3/uL (0.0-0.4); Eosinophils Percent Auto 0.3 % (0-4); Hematocrit 44.3 % (42.0-52.0); Hemoglobin 14.7 g/dl (14.0-18.0); Imm Gran Abs Auto 0.23 X10*3/uL (0.00-0.03); Imm Gran Pct Auto 1.1 % (0.0-0.4); Lymphocytes Absolute Auto 2.9 X10*3/uL (1.2-4.9); Lymphocytes Percent Auto 14.1 % (20-40); MANUAL DIFF FLAG SCAN; Mean Corpuscular HGB Conc 33.2 g/dl (31.0-36.0); Mean Corpuscular Hemoglobin 30.9 pg (27.0-33.0); Mean Corpuscular Volume 93.3 fL (80.0-98.0); Mean Platelet Volume 9.1 fL (9.4-12.4); Monocytes Absolute Auto 1.9 X10*3/uL (0.1-1.2); Monocytes Percent Auto 9.5 % (2-11); Neutrophils Absolute Auto 15.2 x10*3/uL (2.0-8.3); Neutrophils Percent Auto 74.6 % (45-73); Platelet Count 354 X10*3/uL (160-400); Red Blood Count 4.75 X10*6/uL (4.60-5.80); Red Cell Distribution Width 13.9 % (11.0-16.0); SCAN SMEAR FLAG 1; White Blood Count 20.4 X10*3/uL (4.8-10.8)
[2023-07-27 18:35] LABS: INTERNATIONAL NORM RATIO 0.9 (0.9-1.1); Prothrombin Time 10.7 SEC (11.1-13.3)
[2023-07-27 18:37] LABS: Partial Thromboplastin Time 29.4 SEC (26.0-36.8)
[2023-07-27 18:51] LABS: SLIDE REVIEW VERIFIED
[2023-07-27 18:54] LABS: Anion Gap 17 (12-20); Blood Urea Nitrogen 14 mg/dL (9-16); Calcium 9.7 mg/dL (8.4-10.2); Carbon Dioxide 28 mmol/L (22-29); Chloride 100 mmol/L (96-108); Estimated Glomerular Filt Rate > 60; Glucose Random 98 mg/dL (60-115); Potassium 3.9 mmol/L (3.3-5.1); Sodium 141 mmol/L (135-145)
== END ==
LOC: HO.CARD 15:31
PROVIDERS: PCP Family Medicine; Visit Provider Family Medicine
DX: Z01.818 Encounter for other preprocedural examination (principal)
CPT/HCPCS: 36415; 80048; 85025; 85610; 85730; 93005

== ENCOUNTER → 2023-07-27 15:44 | Outpatient (BNV) | payer MEDICAID, SELFPAY | PROVIDERS: PCP Family Medicine; Visit Provider Internal Medicine Cardiovascular Disease | DX: R94.31 Abnormal electrocardiogram [ECG] [EKG] (principal); Z01.810 Encounter for preprocedural cardiovascular examination | CPT/HCPCS: 93010 ==

== ENCOUNTER 2023-08-10 17:15 | Emergency (ER) | payer MEDICAID, SELFPAY ==
--- NOTE | ~2023-08-10 | XR_ITS ---
EXAMINATION: XR CHEST CLINICAL INFORMATION: Chest pain. COMPARISON: Chest radiograph dated 07/26/2023. TECHNIQUE: Frontal view of the chest was obtained. FINDINGS: The cardiac silhouette remains stable in size. There is calcific atherosclerosis of the aorta. There is a linear opacity within the right lower lung felt to represent linear atelectasis. There is probably linear atelectasis at the left lung base. There is no consolidation. There is blunting of the left costophrenic angle. A small left pleural effusion cannot be excluded. No pneumothorax. There are degenerative changes of the left glenohumeral joint. XR/XR chest 1V IMPRESSION: No consolidation. There is bibasilar linear atelectasis. There may be a small left pleural effusion.
--- NOTE | ~2023-08-10 | US_ITS ---
EXAMINATION: US VENOUS ULTRASOUND WITH DOPPLER LOWER EXTREMITY, BILATERAL CLINICAL INFORMATION: Swelling, history of DVT COMPARISON: Prior ultrasound February 2023 TECHNIQUE: Ultrasound of the deep veins is performed from the hip to the calf with compression sonography and color and pulse Doppler assessment. Spectral analysis with color-flow imaging is performed. FINDINGS: RIGHT: Redemonstration of echogenic material in the mid right femoral vein compatible with deep venous thrombosis other veins in the right leg otherwise are patent including the common femoral, popliteal and visualized veins below the knee. LEFT: There is normal venous compression and respiratory variation and augmented flow. The visualized common femoral vein, superficial femoral vein, profunda femoral vein, popliteal vein, and the trifurcation region shows no evidence of deep venous thrombosis. There is no significant popliteal fossa cyst. If the patient's symptoms persist, followup ultrasound in 5 days 7 days might be of value to exclude proximal propagation from a non-visualized calf vein. US/US venous duplex LE BI IMPRESSION: Positive DVT, chronic partial occlusive thrombus in the mid right femoral vein.
--- NOTE | ~2023-08-10 | CT_ITS ---
EXAMINATION: CT ANGIOGRAM OF THE CHEST WITH AND WITHOUT CONTRAST (CT PULMONARY ANGIOGRAM FOR PE) CLINICAL INFORMATION: Reason for Exam dvt r femoral COMPARISON: 03/07/2023 and 05/22/2018 TECHNIQUE: Prior to contrast administration, noncontrast localization images were obtained. Subsequently, multidetector volumetric imaging was performed from the thoracic inlet to below the diaphragms following the administration of 65 mL Omnipaque 350 intravenous contrast. No contrast reaction reported Sagittal, coronal, and MIP oblique sagittal reformatted images were obtained on the CT workstation, uploaded to PACS, and reviewed. This CT examination was performed using dose optimization techniques as appropriate, variously including the following: *Automated exposure control *Adjustment of mA and/or kV according to patient size (this includes techniques or standardized protocols for targeted exams where dose is matched to indication/reason for exam; i.e. extremities or head) *Use of iterative reconstruction technique Total exam dose-length product 347 mGy-cm FINDINGS: QUALITY OF STUDY/CONTRAST BOLUS: Satisfactory. PULMONARY ARTERIES: No pulmonary emboli. THORACIC AORTA: Atherosclerotic calcifications are present in the thoracic aorta. No aneurysmal dilatation, dissection, or intramural hematoma. LUNG: Central airways are patent. Mild bronchial wall thickening is again noted. Linear bands of platelike atelectasis are present within the right middle lobe and the posterior aspect of both lower lobes. There is a fat-containing nodule in the right middle lobe (image 3 9 of series 6) which is solid and round and unchanged from 2019. No new or suspicious pulmonary nodules are identified. No airspace consolidation. PLEURA: No pleural effusion or pneumothorax MEDIASTINUM: Normal heart size. Calcification is present at the mitral annulus. No pericardial effusion. No hilar or mediastinal lymphadenopathy. No evidence of septal bowing or right heart strain. CORONARY ARTERY CALCIFICATION: Present CHEST WALL/AXILLA: No axillary or internal mammary lymphadenopathy. Multiple healed rib fractures are evident bilaterally. OSSEOUS STRUCTURES: Multiple healed bilateral rib fractures. Bones are osteopenic. Status post vertebral augmentation at T7. Multiple compression fractures are evident in the thoracic spine including at T4, T5, T6, and T7, not appreciable change as compared to prior. Bones are osteopenic. Moderate to severe multilevel degenerative disc disease. UPPER ABDOMEN: Unremarkable. No reflux of contrast into the hepatic veins to suggest elevated right heart pressures. CT/CT angio chest PE protocol IMPRESSION: 1. No evidence of pulmonary emboli. No acute pulmonary findings. 2. Bronchial wall thickening as can be seen with small airways process such as asthma or atypical/viral infection. 3. Multiple compression fractures in the thoracic spine, unchanged. VTE: negative.
[2023-08-10 17:22] VITALS: BP 120/68; PULSE 103; RESP 18; TEMP 36.4; O2SAT 90; BMI 25.1
[2023-08-10 17:28] VITALS: O2SAT 93
--- NOTE | 2023-08-10 17:30 | ECG_ITS ---
Test Reason : CP/Hx OF DVT Blood Pressure : / mmHG Vent. Rate : 096 BPM Atrial Rate : 096 BPM P-R Int : 134 ms QRS Dur : 072 ms QT Int : 308 ms P-R-T Axes : 041 022 066 degrees QTc Int : 389 ms Normal sinus rhythm Normal ECG When compared with ECG of 27-JUL-2023 15:45, No significant change was found Referred By: Generic ED Physician Electronically Signed By:Sherwin Thomas
[2023-08-10 17:59] LABS: MANUAL DIFF FLAG NO
[2023-08-10 18:08] LABS: Basophils Absolute Auto 0.1 X10*3/uL (0.0-0.2); Basophils Percent Auto 0.8 % (0-2); Eosinophils Absolute Auto 0.1 X10*3/uL (0.0-0.4); Eosinophils Percent Auto 0.8 % (0-4); Hematocrit 43.7 % (42.0-52.0); Hemoglobin 15.1 g/dl (14.0-18.0); Imm Gran Abs Auto 0.18 X10*3/uL (0.00-0.03); Lymphocytes Absolute Auto 1.4 X10*3/uL (1.2-4.9); Mean Corpuscular HGB Conc 34.6 g/dl (31.0-36.0); Mean Corpuscular Hemoglobin 31.5 pg (27.0-33.0); Mean Platelet Volume 8.6 fL (9.4-12.4); Monocytes Absolute Auto 1.2 X10*3/uL (0.1-1.2); Monocytes Percent Auto 6.9 % (2-11); Neutrophils Absolute Auto 14.8 x10*3/uL (2.0-8.3); Neutrophils Percent Auto 82.5 % (45-73); Platelet Count 322 X10*3/uL (160-400); Red Cell Distribution Width 13.6 % (11.0-16.0); White Blood Count 17.9 X10*3/uL (4.8-10.8)
[2023-08-10 18:15] LABS: Lactic Acid 1.4 mmol/L (0.5-2.0)
[2023-08-10 18:18] LABS: Anion Gap 13 (12-20); Blood Urea Nitrogen 13 mg/dL (9-16); Calcium 9.6 mg/dL (8.4-10.2); Carbon Dioxide 28 mmol/L (22-29); Chloride 99 mmol/L (96-108); Creatinine Clr Calc Pharmacy 88.7; Estimated Glomerular Filt Rate > 60; Glucose Random 322 mg/dL (60-115); INTERNATIONAL NORM RATIO 0.9 (0.9-1.1); Potassium 3.8 mmol/L (3.3-5.1); Prothrombin Time 11.3 SEC (11.1-13.3); Sodium 136 mmol/L (135-145)
[2023-08-10 18:27] LABS: Troponin-I High Sensitivity 6.1 ng/L (<3.5-35.0)
--- NOTE | 2023-08-10 19:14 | ED_ITS ---
HPI - General Adult General Chief complaint: General Medical Stated complaint: blood clot? Time Seen by Provider: 08/10/23 20:04 Source: patient Mode of arrival: ambulatory Limitations: no limitations History of Present Illness HPI narrative: Patient's history of hypertension hyperlipidemia asthma right femoral DVT diagnosed in 03/10 patient took only 1 month of treatment did not have any follow-up comes here for still having pain in the right leg off and along with having cough and shortness of breath for last 2 months was seen at [facility] in the patient here for further management cough is mostly dry does have some mucopurulent phlegm time no fever no chills patient had Doppler done prior to my evaluation which showed mid right femoral vein thrombosis Related Data Home Medications ?Medication ?Instructions ?Recorded ?Confirmed amlodipine 5 mg tablet 5 mg PO DAILY 05/28/21 09/15/22 atorvastatin 10 mg tablet 10 mg PO BEDTIME 05/28/21 09/15/22 baclofen 20 mg tablet 20 mg PO TID PRN muscle spasm 05/28/21 09/15/22 cholecalciferol (vitamin D3) 50 2,000 unit PO DAILY 05/28/21 09/15/22 mcg (2,000 unit) tablet metoprolol succinate 25 mg 25 mg PO DAILY 05/28/21 09/15/22 tablet,extended release 24 hr clotrimazole 1 % topical cream appl topical 07/26/21 09/15/22 nebulizers 06/14/22 09/04/22 codeine 10 mg-guaifenesin 100 mg/5 10 ml PO Q6H PRN cough 01/11/23 mL oral liquid ergocalciferol (vitamin D2) 1,250 1,250 mcg PO QWEEK 01/11/23 mcg (50,000 unit) capsule insulin glargine 100 unit/mL (3 7 unit subcut BEDTIME 01/11/23 mL) subcutaneous pen (Lantus Solostar U-100 Insulin) losartan 25 mg tablet 25 mg PO QAM 01/11/23 metformin 1,000 mg tablet 1,000 mg PO 01/11/23 montelukast 10 mg tablet 10 mg PO BEDTIME 01/11/23 sitagliptin phosphate 25 mg tablet 25 mg PO QAM 01/11/23 (Januvia) zafirlukast 20 mg tablet 20 mg PO BID 01/11/23 alendronate 70 mg tablet 70 mg PO QWEEK 02/07/23 Previous Rx's ?Medication ?Instructions ?Recorded nystatin 100,000 unit/gram topical 1 appl topical TID #15 grams 07/26/21 cream tramadol 50 mg tablet 50 mg PO Q8H PRN postoperative 09/06/22 pain 3 days #10 tabs fluticasone furoate 200 1 inh inhalation DAILY 30 days #60 11/28/22 mcg-vilanterol 25 mcg/dose ea inhalation powder (Breo Ellipta) guaifenesin 100 mg/5 mL oral liquid 200 mg (10 mL) PO Q4H PRN cough 14 11/28/22 days #473 mL umeclidinium 62.5 mcg/actuation 1 inh inhalation DAILY 30 days #30 11/28/22 blister powder for inhalation ea (Incruse Ellipta) ipratropium 20 mcg-albuterol 100 1 puff inhalation Q6H #4 grams 01/07/23 mcg/actuation mist for inhalation (Combivent Respimat) albuterol sulfate 90 mcg/actuation 2 puff PO Q6H PRN for dyspnea #18 01/09/23 aerosol inhaler (Ventolin HFA) ea ipratropium bromide 17 2 puff inhalation QID 30 days 01/09/23 mcg/actuation HFA aerosol inhaler #12.9 grams (Atrovent HFA) magnesium citrate 150 ml PO DAILY 2 days #300 mL 02/07/23 bupropion HCl 75 mg tablet 150 mg (2 x 75 mg) PO BID 30 days 03/02/23 #120 tabs apixaban 5 mg (74 tabs) tablets in 5 mg PO BID #74 ea 03/07/23 a dose pack (Tribliois DVT-PE Treat 30D Start) bisacodyl 5 mg tablet,delayed 15 mg (3 x 5 mg) PO BEDTIME 30 03/21/23 release (Dulcolax (bisacodyl)) days #120 tabs docusate sodium 100 mg capsule 100 mg PO .bid with food 30 days 03/21/23 (Colace) #60 caps famotidine 40 mg tablet 40 mg PO BEDTIME #90 tabs 03/21/23 linaclotide 290 mcg capsule 290 mcg PO QAM #30 caps 01/03/24 (Linzess) hbzhgd-loqymbba-cojehes 1 cap PO QID 30 days #120 caps 03/21/23 24,000-76,000-120,000 unit capsule,delayed rel (Creon) peg 3350-electrolytes 236 240 ml PO Q10M 1 day #4,000 mL 03/21/23 gram-22.74 gram-6.74 gram-5.86 gram solution (Golytely) simethicone 180 mg capsule 180 mg PO QID 30 days #120 caps 03/21/23 omeprazole 40 mg capsule,delayed 40 mg PO DAILY #90 caps 06/04/23 release roflumilast 250 mcg tablet 250 mcg PO DAILY 30 days #30 tabs 06/14/23 (Daliresp) tiotropium bromide 18 mcg capsule 1 cap inhalation DAILY 30 days #30 06/14/23 with inhalation device (Spiriva inhalations with HandiHaler) hydrochlorothiazide 12.5 mg tablet 12.5 mg PO DAILY #30 tabs 07/02/23 prednisone 10 mg tablet 20 mg (2 x 10 mg) PO DAILY 30 days 08/09/23 #60 tabs apixaban 5 mg (74 tabs) tablets in 5 mg PO BID #74 ea 08/11/23 a dose pack (Eliquis DVT-PE Treat 30D Start) apixaban 5 mg tablet (Eliquis) 5 mg PO BID #120 tabs 08/11/23 cefuroxime axetil 500 mg tablet 500 mg PO BID 7 days #14 tabs 08/11/23 Allergies Allergy/AdvReac Type Severity Reaction Status Date / Time ibuprofen [From Motrin] Allergy Intermediate Rash Verified 08/10/23 17:25 Review of Systems 2 Review of Systems: Yes all other systems are reviewed and are negative [facility] Past Medical History Medical History Atelectasis Viral syndrome History of COVID-19 Leukocytosis Hyperlipidemia Personal history of nicotine dependence Back pain Arthritis Anxiety and depression Asthma History of kidney stones Chronic abdominal pain Tubular adenoma of colon (~2019) Asthma-COPD overlap syndrome Osteoporosis (~2001) Irritable bowel syndrome GERD (gastroesophageal reflux disease) COPD (chronic obstructive pulmonary disease) HTN (hypertension) Surgical History History of bilateral hip replacements History of colonoscopy with polypectomy (~2020) History of colonoscopy (~2005) History of surgery on right wrist (~2014) History of hip surgery (~2001) S/P extracorporeal shock wave therapy (~2013) History of hydrocelectomy Shoulder symptoms with history of shoulder arthroplasty Family History Family History Father No problems noted. Mother No problems noted. Son No problems noted. Daughter No problems noted. Social History Social History Unable to assess alcohol history related to: Unknown Alcohol intake: unknown Patient Tobacco Use Status: Current everyday Tobacco user Tobacco use type: Cigarette Cigarette Packs Per Day: 0.5 Cigarettes Per Day: 7 Years Smoked: (onset 14yo, 1/2-3/4ppd x 37yrs, 23pyh) Smoked in Last 30 Days: Yes Second Hand Smoke Exposure: No Use of substances other than those prescribed or required for medical reasons: No Advance Directives: No Advance Directives Information Provided: No Advance Directives Date on File: 05/30/21 service: No Current occupational status: disabled Physical Exam ED Vital Signs: Vital Signs - 24 hr 08/10/23 17:22 08/10/23 17:28 08/10/23 20:03 Temperature 97.5 F 98.4 F Pulse Rate 103 H 88 Respiratory Rate 18 17 Blood Pressure 120/68 128/79 Pulse Oximetry 90 L 93 92 Oxygen Delivery Method Room Air Room Air Room Air 08/10/23 21:17 08/10/23 22:39 08/11/23 00:30 Temperature 98.8 F 98.8 F Pulse Rate 89 94 94 Respiratory Rate 18 19 19 Blood Pressure 121/65 121/65 Pulse Oximetry 92 92 Oxygen Delivery Method Room Air Room Air BMI result Body Mass Index 25.1 Appearance: Alert. Oriented X3. No acute distress. Eyes: PERRLA, No Nystagmus ENT: Pharynx normal. Oral Mucosa moist Neck: Normal inspection. Neck supple. CVS: Normal heart rate and rhythm. Pulses normal. Respiratory: No respiratory distress. Equal air entry bilateral, bilateral wheezing occasional crackles Abdomen: Soft and nontender. Bowel sounds are present, no mass palpable, no CVA tenderness Skin: Skin warm and dry. Normal skin color. Normal skin turgor. Extremities: No lower extremity edema. No calf tenderness diffuse tenderness right thigh Neuro: Oriented X 3. No motor deficit. No sensory deficit.No cerebellar signs , cranial nerves II-XII intact Const Other: Appearance: Alert. Oriented X3. No acute distress. Eyes: No pallor or icterus ENT: Pharynx normal. Oral Mucosa moist Neck: Normal inspection. Neck supple. CVS: Normal heart rate and rhythm. Pulses normal. Respiratory: No respiratory distress. Equal air entry bilateral, bilateral prolonged expiration Abdomen: Soft and nontender. Bowel sounds are present, no mass palpable, no CVA tenderness Skin: Skin warm and dry. Normal skin color. Normal skin turgor. Extremities: No lower extremity edema. No calf tenderness right thigh tenderness no significant swelling noticed Neuro: Oriented X 3. No motor deficit. Course Course Course Narrative: This is an RME: Additional HPI, ROS, PE not included below will be deferred to primary provider. RME assessment and note performed by: Leslie Montiel PA-C This is a 7-tnfe-[age]-male, with a hx of HTN, HLD, GERD, IBS here with complaints of bilateral leg pain, pleuritic chest pain, right bicep redness/pain swelling x 5 days. He was previously anticoagulated due to chronic DVT however has not been taking this. Plan: labs, US, ekg, chest xray Medications Administered Discontinued Medications Generic Name Dose Route Start Last Admin Trade Name Freq PRN Reason Stop Dose Admin Apixaban 10 mg 08/10/23 20:55 08/10/23 21:45 Apixaban 5 Mg Tablet PO 08/10/23 20:56 10 mg ONCE ONE Administration Cefuroxime Axetil 500 mg 08/11/23 00:03 08/11/23 00:16 Cefuroxime Axetil 500 Mg Tablet PO 08/11/23 00:04 500 mg ONCE ONE Administration Albuterol Sulfate 2.5 mg/ 0 mg 08/10/23 20:54 08/10/23 21:14 Albuterol/Ipratropium 3 ml INHALE 08/10/23 20:55 5 dose ONCE ONE Administration Iohexol 65 ml 08/10/23 21:20 08/10/23 21:22 Iohexol 350 Mg/Ml 100 Ml Infus..Btl IV 08/10/23 21:21 65 ml ONCE ONE Administration Medical Decision Making Medical Decision Making [facility] Narrative: Patient with right lower extremity DVT not treated CTA chest negative for PE will start him on Eliquis also patient been coughing a lot likely bronchitis rx Ceftin Differential Diagnosis Differential Diagnoses: The differential diagnosis associated with the presentation includes PE/DVT/bronchitis Admission/Observation Consideration of admission/observation: Escalation of care including admission/observation considered Lab Data [facility] Lab Attestation statement: I reviewed the patient's lab results. 08/10/23 17:53 08/10/23 17:53 Labs: Lab Results 08/10/23 08/10/23 08/10/23 Range/Units 17:53 18:36 19:50 WBC 17.9 H (4.8-10.8) X10*3/uL RBC 4.80 (4.60-5.80) X10*6/uL Hgb 15.1 (14.0-18.0) g/dl Hct 43.7 (42.0-52.0) % MCV 91.0 (80.0-98.0) fL MCH 31.5 (27.0-33.0) pg MCHC 34.6 (31.0-36.0) g/dl RDW 13.6 (11.0-16.0) % Plt Count 322 (160-400) X10*3/uL MPV 8.6 L (9.4-12.4) fL Immature Gran % (Auto) 1.0 H (0.0-0.4) % Neut % (Auto) 82.5 H (45-73) % Lymph % (Auto) 8.0 L (20-40) % [place] % (Auto) 6.9 (2-11) % Eos % (Auto) 0.8 (0-4) % Baso % (Auto) 0.8 (0-2) % Lymph # (Auto) 1.4 (1.2-4.9) X10*3/uL [place] # (Auto) 1.2 (0.1-1.2) X10*3/uL Eos # (Auto) 0.1 (0.0-0.4) X10*3/uL Baso # (Auto) 0.1 (0.0-0.2) X10*3/uL Abs Immat Gran (auto) 0.18 H (0.00-0.03) X10*3/uL Absolute Neuts (auto) 14.8 H (2.0-8.3) x10*3/uL Absolute Nucleated RBC 0.000 (0.0-0.012) X10*3/uL Nucleated RBC % (auto) 0.0 (0.0-0.2) /100WBC PT 11.3 (11.1-13.3) SEC INR 0.9 (0.9-1.1) APTT 31.1 (26.0-36.8) SEC Sodium 136 (135-145) mmol/L Potassium 3.8 (3.3-5.1) mmol/L Chloride 99 (96-108) mmol/L Carbon Dioxide 28 (22-29) mmol/L Anion Gap 13 (12-20) BUN 13 (9-16) mg/dL Creatinine 0.91 (0.5-1.4) mg/dL Estim Creat Clear Calc 88.7 Estimated GFR > 60 Random Glucose 322 H (60-115) mg/dL Lactic Acid 1.4 (0.5-2.0) mmol/L Calcium 9.6 (8.4-10.2) mg/dL Troponin I High Sens 6.1 (<3.5-35.0) ng/L Urine Color Dark Yellow Urine Appearance Clear Urine pH 5.5 (5.0-9.0) Ur Specific [place] 1.025 (1.005-1.025) Urine Protein 30 (1+) H (Neg-Trace) mg/dL Urine Glucose (UA) 500 H (Negative) mg/dL Urine Ketones Trace (Negative) mg/dL Urine Blood Small (1+) H (Negative) Urine Nitrite Negative (Negative) Ur Leukocyte Esterase Negative (Negative) Urine RBC 0-2 (0-2) /HPF Urine WBC 0-5 (0-5) /HPF Ur Squamous Epith Cells 0-2 (0-2) /HPF Calcium Oxalate Crystal Present Urine Bacteria None Seen (None Seen) Hyaline Casts 3-5 (0-2) /LPF Influenza Type A (PCR) NEGATIVE (Negative) Influenza Type B (PCR) NEGATIVE (Negative) RSV RNA Qual (PCR) NEGATIVE (Negative) SARS-CoV-2 RNA (RT-PCR) NEGATIVE (Negative) Independent Interpretation I performed an independent interpretation of an: EKG and CT Scan Interpretation: Normal sinus rhythm heart rate [address]-T changes no acute ischemia Radiology Impression Discussion of test interpretation with radiology: I have reviewed the radiologist's reading. Radiologist Impression: Negative for PE Discharge Plan Discharge Clinical Impression: Deep vein thrombosis (DVT) of femoral vein of right lower extremity, Acute bronchitis Patient Disposition: Home, Self-Care Instructions: Deep Vein Thrombosis (ED), Acute Bronchitis (ED) Additional Instructions: You have blood clot in the right leg and you need to be on Eliquis for at least 6 months Take antibiotics for bronchitis as prescribed Continue prednisone and inhaler Follow-up with your PCP Prescriptions: New cefuroxime axetil 500 mg tablet 500 mg PO BID 7 Days Qty: 14 0RF Eliquis DVT-PE Treat 30D Start 5 mg (74 tabs) tablets,dose pack 5 mg PO BID Qty: 74 0RF Eliquis 5 mg tablet 5 mg PO BID Qty: 120 0RF Rx Instructions: Start after finishing starter package No Action albuterol sulfate [Ventolin HFA] 90 mcg/actuation HFA aerosol inhaler 2 puff PO Q6H PRN (Reason: for dyspnea) Qty: 18 5RF Atrovent HFA 17 mcg/actuation HFA aerosol inhaler 2 puff inhalation QID 30 Days Qty: 12.9 11RF omeprazole 40 mg capsule,delayed release(DR/EC) 40 mg PO DAILY Qty: 90 1RF hydrochlorothiazide 12.5 mg tablet 12.5 mg PO DAILY Qty: 30 4RF prednisone 10 mg tablet 20 mg PO DAILY 30 Days Qty: 60 2RF atorvastatin 10 mg tablet 10 mg PO BEDTIME amlodipine 5 mg tablet 5 mg PO DAILY baclofen 20 mg tablet 20 mg PO TID PRN (Reason: muscle spasm) metoprolol succinate 25 mg tablet extended release 24 hr 25 mg PO DAILY cholecalciferol (vitamin D3) 50 mcg (2,000 unit) tablet 2,000 unit PO DAILY Combivent Respimat 20-100 mcg/actuation mist 1 puff inhalation Q6H Qty: 4 0RF Eliquis DVT-PE Treat 30D Start 5 mg (74 tabs) tablets,dose pack 5 mg PO BID Qty: 74 0RF Rx Instructions: 10mg BID for 7 days followed by 5mg BID tramadol 50 mg tablet 50 mg PO Q8H PRN (Reason: postoperative pain) 3 Days Qty: 10 0RF Rx Instructions: do not take this medicine within 2 hours of HS. instead OTC Tylenol 500 1-2 tabs p.o. can be taken at night if his pain is severe. clotrimazole 1 % cream topical nystatin 100,000 unit/gram cream 1 appl topical TID Qty: 15 0RF (DME) nebulizers Misc See Rx Instructions .Route Rx Instructions: As directed magnesium citrate Solution 150 ml PO DAILY 2 Days Qty: 300 0RF Incruse Ellipta 62.5 mcg/actuation blister with device 1 inh inhalation DAILY 30 Days Qty: 30 11RF fluticasone furoate-vilanterol [Breo Ellipta] 200-25 mcg/dose blister with device 1 inh inhalation DAILY 30 Days Qty: 60 11RF guaifenesin 100 mg/5 mL liquid 200 mg PO Q4H PRN (Reason: cough) 14 Days Qty: 473 4RF ergocalciferol (vitamin D2) 1,250 mcg (50,000 unit) capsule 1,250 mcg PO QWEEK Januvia 25 mg tablet 25 mg PO QAM codeine-guaifenesin 10-100 mg/5 mL liquid 10 ml PO Q6H PRN (Reason: cough) losartan 25 mg tablet 25 mg PO QAM insulin glargine [Lantus Solostar U-100 Insulin] 100 unit/mL (3 mL) insulin pen 7 unit subcut BEDTIME metformin 1,000 mg tablet 1,000 mg PO zafirlukast 20 mg tablet 20 mg PO BID Rx Instructions: must be taken on empty stomach, at least 1 hr before or 2 hrs after a meal/food montelukast 10 mg tablet 10 mg PO BEDTIME alendronate 70 mg tablet 70 mg PO QWEEK bupropion HCl 75 mg tablet 150 mg PO BID 30 Days Qty: 120 6RF peg 3350-electrolytes [Golytely] 236-22.74-6.74 -5.86 gram recon soln 240 ml PO Q10M 1 Days Qty: 4000 0RF Rx Instructions: until fecal effluent is clear; do not exceed a total volume of 2,000 mL famotidine 40 mg tablet 40 mg PO BEDTIME Qty: 90 1RF Linzess 290 mcg capsule 290 mcg PO QAM Qty: 30 6RF Creon 24,000-76,000 -120,000 unit capsule,delayed release(DR/EC) 1 cap PO QID 30 Days Qty: 120 6RF Rx Instructions: administer with meals and/or snacks simethicone 180 mg capsule 180 mg PO QID 30 Days Qty: 120 3RF Rx Instructions: after meals bisacodyl [Dulcolax (bisacodyl)] 5 mg tablet,delayed release (DR/EC) 15 mg PO BEDTIME 30 Days Qty: 120 6RF docusate sodium [Colace] 100 mg capsule 100 mg PO .bid with food 30 Days Qty: 60 6RF tiotropium bromide [Spiriva with HandiHaler] 18 mcg capsule, w/inhalation device 1 cap inhalation DAILY 30 Days Qty: 30 11RF Rx Instructions: puncture 1 cap using device; one dose = 2 inhalations roflumilast [Daliresp] 250 mcg tablet 250 mcg PO DAILY 30 Days Qty: 30 5RF Interventions: ED Discharge Assessment Last Done: 08/11/23 00:30 Discharge Date/Time: 08/11/23 00:31 Print Language: [place]
[2023-08-10 19:23] LABS: Influenza A PCR NEGATIVE (Negative); Influenza B PCR NEGATIVE (Negative); Resp Syncy Virus RNA Qual PCR NEGATIVE (Negative); SARS COV2 PCR INHOUSE NEGATIVE (Negative)
[2023-08-10 20:03] VITALS: BP 128/79; PULSE 88; RESP 17; TEMP 36.9; O2SAT 92
[2023-08-10 20:09] LABS: Appearance Urine Clear; Color Urine Dark Yellow; Glucose Urine UA 500 mg/dL (Negative); Leukocyte Esterase Urine Negative (Negative); Nitrite Urine Negative (Negative); PH 5.5 (5.0-9.0); Specific Gravity - Urine 1.025 (1.005-1.025); UMIC TRIGGER UACC YES; Urine Blood Small (1+) (Negative); Urine Ketones Trace mg/dL (Negative); Urine Protein 30 (1+) mg/dL (Neg-Trace)
[2023-08-10 20:27] LABS: Bacteria Urine None Seen (None Seen); Calcium Oxalate Crystals Urine Present; RBC Urine 0-2 /HPF (0-2); Squamous Epithelial Cell Urine 0-2 /HPF (0-2); WBC Urine 0-5 /HPF (0-5)
[2023-08-10 21:02] LABS: Partial Thromboplastin Time 31.1 SEC (26.0-36.8)
[2023-08-10] MEDS: Albuterol Sulfate 2.5 MG, Albuterol/Iprat 2.5/0.5MG 3 ML 3 ML INHALE (21:14)
[2023-08-10 21:17] VITALS: PULSE 89; RESP 18; O2SAT 90
[2023-08-10] MEDS: iohexoL 350 MG/ML 100 ML INFUS..BTL 65 ML IV (21:22)
[2023-08-10] MEDS: Apixaban 5 MG TABLET 10 MG PO (21:45)
[2023-08-10 22:39] VITALS: BP 121/65; PULSE 94; RESP 19; TEMP 37.1; O2SAT 92
[2023-08-11] MEDS: cefuroxime axetiL 500 MG TABLET PO (00:16)
[2023-08-11 00:30] VITALS: BP 121/65; PULSE 94; RESP 19; TEMP 37.1; O2SAT 92
== END 2023-08-11 00:31 | disposition home or self-care (01) ==
PROVIDERS: Emergency Provider Internal Medicine; PCP Family Medicine
DX: I82.501 Chronic embolism and thrombosis of unspecified deep veins of right lower extremity (principal); J40 Bronchitis, not specified as acute or chronic; M79.604 Pain in right leg; M79.605 Pain in left leg; R05.9 Cough, unspecified; R06.02 Shortness of breath; I10 Essential (primary) hypertension; J44.9 Chronic obstructive pulmonary disease, unspecified; K21.9 Gastro-esophageal reflux disease without esophagitis; E78.5 Hyperlipidemia, unspecified
CPT/HCPCS: 0241U; 36415; 71045; 71275; 80048; 81001; 83605; 84484; 85025; 85610; 85730; 87040; 93005; 93970; 94640; 99285; Q9967

== ENCOUNTER → 2023-08-10 17:30 | Outpatient (BNV) | payer MEDICAID, SELFPAY | PROVIDERS: Emergency Provider Internal Medicine; PCP Family Medicine; Visit Provider Internal Medicine Cardiovascular Disease | DX: R07.9 Chest pain, unspecified (principal) | CPT/HCPCS: 93010 ==

== ENCOUNTER 2023-08-25 16:25 | Emergency (ER) | payer MEDICAID, SELFPAY ==
--- NOTE | ~2023-08-25 | XR_ITS ---
EXAMINATION: XR ELBOW, LEFT CLINICAL INFORMATION: Pain and swelling COMPARISON: None available. TECHNIQUE: AP, lateral, and oblique views of the left elbow. FINDINGS: There is marked edema and soft tissue prominence overlying the olecranon. There is a expansile area with periosteal reaction seen ulna which I suspect is related to healing of an old fracture. These correlate with history. No other underlying bony abnormality is seen. No joint effusion is present. XR/XR elbow LT min 3V IMPRESSION: 1. Marked soft tissue swelling overlying the olecranon. 2. Expansile area with periosteal reaction in the ulna which I suspect is related to healing of an old fracture.
[2023-08-25 17:17] VITALS: BP 148/86; PULSE 93; RESP 16; TEMP 36.8; O2SAT 93; BMI 24.8
--- NOTE | 2023-08-25 17:19 | ED_ITS ---
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 Denies trauma. He states the pain is worse when he tries to flex the elbow. Denies any redness or warmth to the elbow but it is bruised. Does not recall hitting head against anything yesterday. He denies any pain in his forearm, wrist, hand. MD complaint: injury to: left and elbow Onset (ago): hour(s) Other injuries: none Place: home Severity: moderate Relieving factors: immobilization Exacerbating factors: movement of extremity Associated symptoms: denies other symptoms Related Data Home Medications ?Medication ?Instructions ?Recorded ?Confirmed amlodipine 5 mg tablet 5 mg PO DAILY 05/28/21 09/15/22 atorvastatin 10 mg tablet 10 mg PO BEDTIME 05/28/21 09/15/22 baclofen 20 mg tablet 20 mg PO TID PRN muscle spasm 05/28/21 09/15/22 cholecalciferol (vitamin D3) 50 2,000 unit PO DAILY 05/28/21 09/15/22 mcg (2,000 unit) tablet metoprolol succinate 25 mg 25 mg PO DAILY 05/28/21 09/15/22 tablet,extended release 24 hr clotrimazole 1 % topical cream appl topical 07/26/21 09/15/22 nebulizers 06/14/22 09/04/22 codeine 10 mg-guaifenesin 100 mg/5 10 ml PO Q6H PRN cough 01/11/23 mL oral liquid ergocalciferol (vitamin D2) 1,250 1,250 mcg PO QWEEK 01/11/23 mcg (50,000 unit) capsule insulin glargine 100 unit/mL (3 7 unit subcut BEDTIME 01/11/23 mL) subcutaneous pen (Lantus Solostar U-100 Insulin) losartan 25 mg tablet 25 mg PO QAM 01/11/23 metformin 1,000 mg tablet 1,000 mg PO 01/11/23 montelukast 10 mg tablet 10 mg PO BEDTIME 01/11/23 sitagliptin phosphate 25 mg tablet 25 mg PO QAM 01/11/23 (Januvia) zafirlukast 20 mg tablet 20 mg PO BID 01/11/23 alendronate 70 mg tablet 70 mg PO QWEEK 02/07/23 Previous Rx's ?Medication ?Instructions ?Recorded nystatin 100,000 unit/gram topical 1 appl topical TID #15 grams 07/26/21 cream tramadol 50 mg tablet 50 mg PO Q8H PRN postoperative 09/06/22 pain 3 days #10 tabs fluticasone furoate 200 1 inh inhalation DAILY 30 days #60 11/28/22 mcg-vilanterol 25 mcg/dose ea inhalation powder (Breo Ellipta) guaifenesin 100 mg/5 mL oral liquid 200 mg (10 mL) PO Q4H PRN cough 14 11/28/22 days #473 mL umeclidinium 62.5 mcg/actuation 1 inh inhalation DAILY 30 days #30 11/28/22 blister powder for inhalation ea (Incruse Ellipta) albuterol sulfate 90 mcg/actuation 2 puff PO Q6H PRN for dyspnea #18 01/09/23 aerosol inhaler (Ventolin HFA) ea ipratropium bromide 17 2 puff inhalation QID 30 days 01/09/23 mcg/actuation HFA aerosol inhaler #12.9 grams (Atrovent HFA) magnesium citrate 150 ml PO DAILY 2 days #300 mL 02/07/23 bupropion HCl 75 mg tablet 150 mg (2 x 75 mg) PO BID 30 days 03/02/23 #120 tabs apixaban 5 mg (74 tabs) tablets in 5 mg PO BID #74 ea 03/07/23 a dose pack (Eliquis DVT-PE Treat 30D Start) bisacodyl 5 mg tablet,delayed 15 mg (3 x 5 mg) PO BEDTIME 30 03/21/23 release (Dulcolax (bisacodyl)) days #120 tabs docusate sodium 100 mg capsule 100 mg PO .bid with food 30 days 03/21/23 (Colace) #60 caps famotidine 40 mg tablet 40 mg PO BEDTIME #90 tabs 03/21/23 linaclotide 290 mcg capsule 290 mcg PO QAM #30 caps 03/21/23 (Linzess) lggwen-mcobhtda-ddwmjvr 1 cap PO QID 30 days #120 caps 03/21/23 24,000-76,000-120,000 unit capsule,delayed rel (Creon) peg 3350-electrolytes 236 240 ml PO Q10M 1 day #4,000 mL 03/21/23 gram-22.74 gram-6.74 gram-5.86 gram solution (Golytely) simethicone 180 mg capsule 180 mg PO QID 30 days #120 caps 03/21/23 omeprazole 40 mg capsule,delayed 40 mg PO DAILY #90 caps 06/04/23 release roflumilast 250 mcg tablet 250 mcg PO DAILY 30 days #30 tabs 06/14/23 (Daliresp) tiotropium bromide 18 mcg capsule 1 cap inhalation DAILY 30 days #30 06/14/23 with inhalation device (Spiriva inhalations with HandiHaler) hydrochlorothiazide 12.5 mg tablet 12.5 mg PO DAILY #30 tabs 07/02/23 prednisone 10 mg tablet 20 mg (2 x 10 mg) PO DAILY 30 days 08/09/23 #60 tabs apixaban 5 mg (74 tabs) tablets in 5 mg PO BID #74 ea 08/11/23 a dose pack (Eliquis DVT-PE Treat 30D Start) apixaban 5 mg tablet (Eliquis) 5 mg PO BID #120 tabs 08/11/23 cefuroxime axetil 500 mg tablet 500 mg PO BID 7 days #14 tabs 08/11/23 ipratropium 20 mcg-albuterol 100 1 puff inhalation Q6H #4 grams 08/16/23 mcg/actuation mist for inhalation (Combivent Respimat) oxycodone 5 mg tablet 5 mg PO Q8H PRN severe pain (scale 08/25/23 score 7-10) #5 tabs Allergies Allergy/AdvReac Type Severity Reaction Status Date / Time ibuprofen [From Motrin] Allergy Intermediate Rash Verified 08/25/23 17:19 Review of Systems Review of Systems: Yes all other systems are reviewed and are negative PMFSH Past Medical History Medical History Atelectasis Viral syndrome History of COVID-19 Leukocytosis Hyperlipidemia Personal history of nicotine dependence Back pain Arthritis Anxiety and depression Asthma History of kidney stones Chronic abdominal pain Tubular adenoma of colon (~2019) Asthma-COPD overlap syndrome Osteoporosis (~2001) Irritable bowel syndrome GERD (gastroesophageal reflux disease) COPD (chronic obstructive pulmonary disease) HTN (hypertension) Surgical History History of bilateral hip replacements History of colonoscopy with polypectomy (~2020) History of colonoscopy (~2005) History of surgery on right wrist (~2014) History of hip surgery (~2001) S/P extracorporeal shock wave therapy (~2013) History of hydrocelectomy Shoulder symptoms with history of shoulder arthroplasty Family History Family History Father No problems noted. Mother No problems noted. Son No problems noted. Daughter No problems noted. Social History Social History Unable to assess alcohol history related to: Unknown Alcohol intake: unknown Patient Tobacco Use Status: Current everyday Tobacco user Tobacco use type: Cigarette Cigarette Packs Per Day: 0.5 Cigarettes Per Day: 7 Years Smoked: (onset 14yo, 1/2-3/4ppd x 37yrs, 23pyh) Second Hand Smoke Exposure: No Advance Directives: No Advance Directives Information Provided: No Advance Directives Date on File: 05/30/21 service: No Current occupational status: disabled Physical Exam Vital Signs: Vital Signs: Last Vital Signs Temp 98.2 F 08/25/23 19:14 Pulse 93 08/25/23 19:14 Resp 16 08/25/23 19:14 BP 148/86 H 08/25/23 19:14 Pulse Ox 93 08/25/23 19:14 O2 Del Method Room Air 08/25/23 19:14 BMI result Body Mass Index 24.8 Appearance: Alert. Oriented X3. No acute distress. HEENT: normal inspection CVS: Normal heart rate and rhythm. Pulses normal. Respiratory: No respiratory distress. Skin: Skin warm and dry. Normal skin color. Normal skin turgor. No rashes. Extremities: Left elbow with significant soft tissue swelling and ecchymosis over the elbow, area is soft, mildly tender, no warmth. Limited flexion of the elbow due to pain. Neurovascularly intact distally. Neuro: Oriented X 3. No motor deficit. No sensory deficit. Medications Administered Discontinued Medications Generic Name Dose Route Start Last Admin Trade Name Santanaq PRN Reason Stop Dose Admin Oxycodone HCl 5 mg 08/25/23 18:43 08/25/23 19:07 Oxycodone Hcl Immed Release 5 Mg Tablet PO 08/25/23 18:44 5 mg ONCE ONE Administration Medical Decision Making Medical Decision Making [facility] Narrative: 53-year-old male on Eliquis presents to the ER for evaluation of left elbow swelling, pain, bruising that started this morning when he woke up. No known trauma. Exam is consistent with traumatic bursitis. He is requesting drainage today however he is on anticoagulation and he was counseled that this is contraindicated at this time. No role for drainage today. Patient was placed in an Terence wrap for compression and support. He will follow up with his primary care doctor and referred to orthopedics for further evaluation and treatment. He reports significant pain, short course of oxycodone was prescribed. He was also encouraged to take Tylenol for [id number] pain. Stable for discharge home with outpatient follow-up Differential Diagnosis Differential Diagnoses: The differential diagnosis associated with the presentation includes Traumatic bursitis, hemarthrosis, elbow fracture, gout, septic joint Independent Interpretation I performed an independent interpretation of an: Plain X-Ray Interpretation: No acute fracture, significant soft tissue swelling. Agree with radiology read Radiology Impression Discussion of test interpretation with radiology: I have reviewed the radiologist's reading. Radiologist Impression: CLINICAL INFORMATION: Pain and swelling COMPARISON: None available. TECHNIQUE: AP, lateral, and oblique views of the left elbow. FINDINGS: There is marked edema and soft tissue prominence overlying the olecranon. There is a expansile area with periosteal reaction seen ulna which I suspect is related to healing of an old fracture. These correlate with history. No other underlying bony abnormality is seen. No joint effusion is present. XR/XR elbow LT min 3V IMPRESSION: 1. Marked soft tissue swelling overlying the olecranon. 2. Expansile area with periosteal reaction in the ulna which I suspect is related to healing of an old fracture. Independent Historian Clinical information obtained from an independent historian. History obtained from or confirmed by: Spouse External Record Review External record reviewed: Outpatient record, Prior outpatient labs and Prior outpatient radiology Prescription Management I considered prescription management with: Pain Medication and Antibiotic Chronic Conditions Patient?s care impacted by: Other (DVT) Procedures Orthopedic Splinting/Casting Injury #1: Side: left Upper Extremity Injury Location: elbow Upper Extremity Immobilizer: Terence wrap Discharge Plan Discharge Clinical Impression: Bursitis Patient Disposition: Home, Self-Care Instructions: Elbow Bursitis (ED) Additional Instructions: Wear your TERENCE wrap on the elbow unless bathing. Elevate when possible Take Tylenol 1000 mg every 8 hours. Take the prescribed medication as needed for severe pain only. Do not drive after taking this medication Follow up with Orthopedics for further evaluation and treatment If you develop new or worsening symptoms call 911 or come back to the ER for further evaluation. Prescriptions: New oxycodone 5 mg tablet 5 mg PO Q8H PRN (Reason: severe pain (scale score 7-10)) Qty: 5 0RF Rx Instructions: Partial Fill upon patient request. No Action albuterol sulfate [Ventolin HFA] 90 mcg/actuation HFA aerosol inhaler 2 puff PO Q6H PRN (Reason: for dyspnea) Qty: 18 5RF Atrovent HFA 17 mcg/actuation HFA aerosol inhaler 2 puff inhalation QID 30 Days Qty: 12.9 11RF omeprazole 40 mg capsule,delayed release(DR/EC) 40 mg PO DAILY Qty: 90 1RF hydrochlorothiazide 12.5 mg tablet 12.5 mg PO DAILY Qty: 30 4RF prednisone 10 mg tablet 20 mg PO DAILY 30 Days Qty: 60 2RF Combivent Respimat 20-100 mcg/actuation mist 1 puff inhalation Q6H Qty: 4 11RF atorvastatin 10 mg tablet 10 mg PO BEDTIME amlodipine 5 mg tablet 5 mg PO DAILY baclofen 20 mg tablet 20 mg PO TID PRN (Reason: muscle spasm) metoprolol succinate 25 mg tablet extended release 24 hr 25 mg PO DAILY cholecalciferol (vitamin D3) 50 mcg (2,000 unit) tablet 2,000 unit PO DAILY Shahriar DVT-PE Treat 30D Start 5 mg (74 tabs) tablets,dose pack 5 mg PO BID Qty: 74 0RF Rx Instructions: 10mg BID for 7 days followed by 5mg BID cefuroxime axetil 500 mg tablet 500 mg PO BID 7 Days Qty: 14 0RF Eliquis DVT-PE Treat 30D Start 5 mg (74 tabs) tablets,dose pack 5 mg PO BID Qty: 74 0RF Eliquis 5 mg tablet 5 mg PO BID Qty: 120 0RF Rx Instructions: Start after finishing starter package tramadol 50 mg tablet 50 mg PO Q8H PRN (Reason: postoperative pain) 3 Days Qty: 10 0RF Rx Instructions: do not take this medicine within 2 hours of HS. instead OTC Tylenol 500 1-2 tabs p.o. can be taken at night if his pain is severe. clotrimazole 1 % cream topical nystatin 100,000 unit/gram cream 1 appl topical TID Qty: 15 0RF (DME) nebulizers Misc See Rx Instructions .Route Rx Instructions: As directed magnesium citrate Solution 150 ml PO DAILY 2 Days Qty: 300 0RF Incruse Ellipta 62.5 mcg/actuation blister with device 1 inh inhalation DAILY 30 Days Qty: 30 11RF fluticasone furoate-vilanterol [Breo Ellipta] 200-25 mcg/dose blister with device 1 inh inhalation DAILY 30 Days Qty: 60 11RF guaifenesin 100 mg/5 mL liquid 200 mg PO Q4H PRN (Reason: cough) 14 Days Qty: 473 4RF ergocalciferol (vitamin D2) 1,250 mcg (50,000 unit) capsule 1,250 mcg PO QWEEK Januvia 25 mg tablet 25 mg PO QAM codeine-guaifenesin 10-100 mg/5 mL liquid 10 ml PO Q6H PRN (Reason: cough) losartan 25 mg tablet 25 mg PO QAM insulin glargine [Lantus Solostar U-100 Insulin] 100 unit/mL (3 mL) insulin pen 7 unit subcut BEDTIME metformin 1,000 mg tablet 1,000 mg PO zafirlukast 20 mg tablet 20 mg PO BID Rx Instructions: must be taken on empty stomach, at least 1 hr before or 2 hrs after a meal/food montelukast 10 mg tablet 10 mg PO BEDTIME alendronate 70 mg tablet 70 mg PO QWEEK bupropion HCl 75 mg tablet 150 mg PO BID 30 Days Qty: 120 6RF peg 3350-electrolytes [Golytely] 236-22.74-6.74 -5.86 gram recon soln 240 ml PO Q10M 1 Days Qty: 4000 0RF Rx Instructions: until fecal effluent is clear; do not exceed a total volume of 2,000 mL famotidine 40 mg tablet 40 mg PO BEDTIME Qty: 90 1RF Linzess 290 mcg capsule 290 mcg PO QAM Qty: 30 6RF Creon 24,000-76,000 -120,000 unit capsule,delayed release(DR/EC) 1 cap PO QID 30 Days Qty: 120 6RF Rx Instructions: administer with meals and/or snacks simethicone 180 mg capsule 180 mg PO QID 30 Days Qty: 120 3RF Rx Instructions: after meals bisacodyl [Dulcolax (bisacodyl)] 5 mg tablet,delayed release (DR/EC) 15 mg PO BEDTIME 30 Days Qty: 120 6RF docusate sodium [Colace] 100 mg capsule 100 mg PO .bid with food 30 Days Qty: 60 6RF tiotropium bromide [Spiriva with HandiHaler] 18 mcg capsule, w/inhalation device 1 cap inhalation DAILY 30 Days Qty: 30 11RF Rx Instructions: puncture 1 cap using device; one dose = 2 inhalations roflumilast [Daliresp] 250 mcg tablet 250 mcg PO DAILY 30 Days Qty: 30 5RF Interventions: ED Discharge Assessment Last Done: 08/25/23 19:14 Discharge Date/Time: 08/25/23 19:15 Print Language: Nauruan
[2023-08-25] MEDS: oxyCODONE HCl Immed Release 5 MG TABLET PO (19:07)
[2023-08-25 19:14] VITALS: BP 148/86; PULSE 93; RESP 16; TEMP 36.8; O2SAT 93
== END 2023-08-25 19:15 | disposition home or self-care (01) ==
PROVIDERS: Emergency Provider Student in an Organized Health Care Education/Training Program; PCP Student in an Organized Health Care Education/Training Program
DX: M70.32 Other bursitis of elbow, left elbow (principal); Y93.9 Activity, unspecified; M25.522 Pain in left elbow; I10 Essential (primary) hypertension; E78.5 Hyperlipidemia, unspecified; Z86.718 Personal history of other venous thrombosis and embolism; Z79.01 Long term (current) use of anticoagulants
CPT/HCPCS: 73080; 99283

== ENCOUNTER → 2023-08-30 10:00 | Outpatient (BNVA) | payer MEDICAID, SELFPAY | PROVIDERS: PCP Student in an Organized Health Care Education/Training Program; Visit Provider Physician Assistant | DX: M70.22 Olecranon bursitis, left elbow (principal) | CPT/HCPCS: 99212 ==

== ENCOUNTER → 2023-08-30 11:17 | Outpatient (BNVA) | payer MEDICAID, SELFPAY | PROVIDERS: PCP Student in an Organized Health Care Education/Training Program; Visit Provider Physician Assistant ==

== ENCOUNTER 2023-09-04 09:52 | Outpatient (AMB) | payer MEDICAID, SELFPAY ==
--- NOTE | 2023-09-04 09:54 | A.OFFVIS_ITS ---
Vital Signs 09/04/23 10:02 Height 5 ft 8 in Weight 163 lb BMI 24.8 Intake Visit Reasons: OV-Left hand EMG review Intake Note: Aldo is a 53 year old male who presents today for his left hand EMG review. EMG done on 07/10/23. Patient reports he continues to have numbness in his whole hand. He expresses that he was in the ED and was hospitalized on 09/01/23 due to having bursitis. Allergies ibuprofen [From Motrin] Allergy (Intermediate, Verified 09/04/23 10:02) Rash HPI HPI OV-Left hand EMG review: Details: 53-year-old right hand dominant male, who is Indonesian speaking, presents in the office today for a follow-up of left wrist pain and review of his EMG study. I last saw the patient in the office on 06/21/2023 when an EMG was ordered. The patient was seen in the office on 08/30/2023 by Gail Garcia PA-C, for left elbow olecranon bursitis. While in the office today the patient reports he continues to have numbness throughout the entire left hand. Patient reports being seen in the ED and hospitalized on 09/01/2023 for a left elbow bursitis. [facility] Medical History Atelectasis Viral syndrome History of COVID-19 Leukocytosis Hyperlipidemia Personal history of nicotine dependence Back pain Arthritis Anxiety and depression Asthma History of kidney stones Chronic abdominal pain Tubular adenoma of colon (~2019) Asthma-COPD overlap syndrome Osteoporosis (~2001) Irritable bowel syndrome GERD (gastroesophageal reflux disease) COPD (chronic obstructive pulmonary disease) HTN (hypertension) Surgical History History of bilateral hip replacements History of colonoscopy with polypectomy (~2020) History of colonoscopy (~2005) History of surgery on right wrist (~2014) History of hip surgery (~2001) S/P extracorporeal shock wave therapy (~2013) History of hydrocelectomy Shoulder symptoms with history of shoulder arthroplasty Family History Father No problems noted. Mother No problems noted. Son No problems noted. Daughter No problems noted. Social History Unable to assess alcohol history related to: Unknown Alcohol intake: unknown Patient Tobacco Use Status: Current everyday Tobacco user Tobacco use type: Cigarette Cigarette Packs Per Day: 0.5 Cigarettes Per Day: 7 Years Smoked: (onset 14yo, 1/2-3/4ppd x 37yrs, 23pyh) Second Hand Smoke Exposure: No Advance Directives Date on File: 05/30/21 service: No Current occupational status: disabled Review of Systems Const All systems reviewed & are unremarkable except as noted in HPI and below Physical Exam Vital Signs: BMI result Body Mass Index 24.8 Const General: cooperative, healthy appearing and no acute distress Resp Effort & Inspection: normal respiratory effort and able to speak in complete sentences Cardio Rate: regular rate Peripheral pulses: Peripheral pulses 2+ throughout GI Palpation (GI): Soft to palpation Skin Lesions: no lesions Rashes: no rashes Extrem Other: Left upper extremity: Ecchymosis extending from the elbow distally accompanied by moderate edema. Edema over the olecranon bursa. Able to flex and extend at the left elbow with ROM limitation due to pain and restrictions due to edema. No erythema, warmth, or tenderness to palpation over the olecranon bursa. No active drainage. Capillary refill is brisk. 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 Breaux is a 53-year-old right hand dominant male, who is Indonesian speaking, presents in the office today for a follow-up of left wrist pain and review of his EMG study. I last saw the patient in the office on 06/21/2023 when an EMG was ordered. The patient was seen in the office on 08/30/2023 by Gail Garcia PA-C, for left elbow olecranon bursitis. While in the office today the patient reports he continues to have numbness throughout the entire left hand. Patient reports being seen in the ED and hospitalized on 09/01/2023 for a left elbow bursitis. The patient presented today to discuss the EMG study with findings that were si gnificant for mild to moderate carpal tunnel and moderately severe cubital tunnel. These findings were discussed with the patient today. However, due to his current condition of anticoagulation use, proceeding with surgical intervention should be postponed at this time. He is currently taking Eliquis, which has been poorly managed. The patient reports his PCP has not been prescribing this medication to him. He states he has been presenting to the ED for treatment and this is where he has been prescribed the medication. He reports he has been prescribed Eliquis twice by the ED. We are going to send a message to [facility] to see if they are willing to take the patient given his situation and difficulty with managing his DVT and anticoagulation with his current PCP. I also applied an ALINE wrap for gentle compression over the olecranon. He should refrain from using any anti- inflammatories due to him being on Eliquis. Follow-up will be in four weeks, or sooner if needed. EMG study of the left upper extremity, obtained on 07/10/2023, revealed: 1. [id number] left median neuropathy across carpal tunnel. 2. 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 Patient Instructions: Scribed by Beverly Brennan medical chief technician, for April Pritchett PA-C on 09/04/2023 at 10:06 am, EST. Coding Level of Care Code Est Pt Level 3 (41818) Diagnoses Olecranon bursitis, left elbow M70.22 Carpal tunnel syndrome of left wrist G56.02 Cubital tunnel syndrome on left G56.22 Chronic anticoagulation Z79.01
[2023-09-04 10:02] VITALS: BMI 24.8
== END 2023-09-04 10:20 | disposition home or self-care (01) ==
PROVIDERS: PCP Student in an Organized Health Care Education/Training Program; Visit Provider Physician Assistant
DX: M70.22 Olecranon bursitis, left elbow (principal); G56.02 Carpal tunnel syndrome, left upper limb; G56.22 Lesion of ulnar nerve, left upper limb; Z79.01 Long term (current) use of anticoagulants
CPT/HCPCS: 99213

== ENCOUNTER → 2023-09-04 09:52 | Outpatient (BNVA) | payer MEDICAID, SELFPAY | PROVIDERS: PCP Student in an Organized Health Care Education/Training Program; Visit Provider Physician Assistant | DX: M70.22 Olecranon bursitis, left elbow (principal); G56.02 Carpal tunnel syndrome, left upper limb; G56.22 Lesion of ulnar nerve, left upper limb; Z79.01 Long term (current) use of anticoagulants | CPT/HCPCS: 99212 ==

== ENCOUNTER 2023-09-05 01:16 | Emergency (ER) | payer MEDICAID, SELFPAY ==
--- NOTE | ~2023-09-05 | CT_ITS ---
EXAMINATION: CT ABDOMEN AND PELVIS WITHOUT CONTRAST CLINICAL INFORMATION: Left flank pain. COMPARISON: 07/12/2022. TECHNIQUE: Multidetector volumetric imaging was performed from the superior aspect of the liver through the pubic symphysis. Sagittal and coronal reformatted images were obtained on the technologist's workstation. This CT examination was performed using dose optimization techniques as appropriate, variously including the following: *Automated exposure control *Adjustment of mA and/or kV according to patient size (this includes techniques or standardized protocols for targeted exams where dose is matched to indication/reason for exam; i.e. extremities or head) *Use of iterative reconstruction technique DLP: 552 mGy-cm FINDINGS: LUNG BASES: There is scarring at the lung bases. LIVER, GALLBLADDER, AND BILIARY TREE: The liver is normal in size, shape, and attenuation. No focal hepatic lesion or biliary ductal dilatation is present. The gallbladder is unremarkable with no evidence of radiopaque gallstones, gallbladder wall thickening, or obvious pericholecystic inflammatory changes. PANCREAS: Unremarkable. SPLEEN: Unremarkable. ADRENAL GLANDS: Unremarkable. KIDNEYS AND URETERS: The kidneys are normal in size, shape, and attenuation. No hydronephrosis, hydroureter, or calculi seen. No perinephric stranding. BLADDER: The bladder is partially obscured by artifacts related to bilateral hip prostheses. GASTROINTESTINAL TRACT: The small and large bowel are unremarkable. There is retained stool The appendix is unremarkable. ABDOMINAL WALL: No significant hernia is appreciated. LYMPH NODES: Normal. VASCULAR: There is atherosclerotic plaque of the abdominal aorta PELVIC VISCERA: Unremarkable. OSSEOUS STRUCTURES: There is diffuse thoracolumbar degenerative change. CT/CT abdomen pelvis wo IV con IMPRESSION: No acute intra-abdominal or intrapelvic process to explain patient's symptoms. Fleischner guidelines were followed.
[2023-09-05 01:33] VITALS: BP 146/88; PULSE 89; RESP 20; TEMP 36.7; O2SAT 94; BMI 26.1
[2023-09-05 01:45] LABS: Basophils Absolute Auto 0.1 X10*3/uL (0.0-0.2); Basophils Percent Auto 0.6 % (0-2); Eosinophils Absolute Auto 0.2 X10*3/uL (0.0-0.4); Eosinophils Percent Auto 1.2 % (0-4); Hemoglobin 12.7 g/dl (14.0-18.0); Imm Gran Abs Auto 0.16 X10*3/uL (0.00-0.03); Imm Gran Pct Auto 0.9 % (0.0-0.4); Lymphocytes Absolute Auto 2.4 X10*3/uL (1.2-4.9); Lymphocytes Percent Auto 13.9 % (20-40); MANUAL DIFF FLAG SCAN; Mean Corpuscular HGB Conc 33.4 g/dl (31.0-36.0); Mean Corpuscular Hemoglobin 30.7 pg (27.0-33.0); Mean Corpuscular Volume 91.8 fL (80.0-98.0); Mean Platelet Volume 8.3 fL (9.4-12.4); Monocytes Absolute Auto 1.6 X10*3/uL (0.1-1.2); Monocytes Percent Auto 9.2 % (2-11); Neutrophils Absolute Auto 13.1 x10*3/uL (2.0-8.3); Neutrophils Percent Auto 74.2 % (45-73); Platelet Count 333 X10*3/uL (160-400); Red Blood Count 4.14 X10*6/uL (4.60-5.80); Red Cell Distribution Width 13.9 % (11.0-16.0); SCAN SMEAR FLAG 1; White Blood Count 17.6 X10*3/uL (4.8-10.8)
[2023-09-05 01:51] LABS: SLIDE REVIEW VERIFIED
[2023-09-05 02:01] LABS: Alanine Aminotransferase 15 U/L (0-40); Albumin Level 3.6 g/dL (3.5-5.0); Alkaline Phosphatase 61 U/L (39-117); Anion Gap 10 (12-20); Aspartate Amino Transferase 13 U/L (5-37); Bilirubin Total 0.3 mg/dL (0.0-1.0); Blood Urea Nitrogen 17 mg/dL (9-16); Calcium 9.3 mg/dL (8.4-10.2); Carbon Dioxide 31 mmol/L (22-29); Chloride 102 mmol/L (96-108); Estimated Glomerular Filt Rate > 60; Glucose Random 180 mg/dL (60-115); Sodium 139 mmol/L (135-145); Total Protein 6.3 g/dL (6.5-8.0)
--- NOTE | 2023-09-05 02:34 | ED_ITS ---
HPI - Male Genitourinary General Chief complaint: Urogenital-Male Stated complaint: Flank Pain Time Seen by Provider: 09/05/23 02:06 Source: patient and family Mode of arrival: ambulatory Limitations: no limitations History of Present Illness ED Provider: Dr. Mica Garcia HPI Narrative: Patient comes to the emergency room complaining of left-sided flank pain that started couple of hours ago. Patient states that all day yesterday he started having an achy sensation, did not think much of it. Patient went to sleep and couple of hours prior to arrival, patient woke up with intense flank pain. Patient states that he has had kidney stones in the past and it feels similar as previous experiences of passing kidney stones. Patient denies hematuria or dysuria. No fever or chills. No chest pain or shortness of breath. Related Data Home Medications ?Medication ?Instructions ?Recorded ?Confirmed amlodipine 5 mg tablet 5 mg PO DAILY 05/28/21 09/15/22 atorvastatin 10 mg tablet 10 mg PO BEDTIME 05/28/21 09/15/22 baclofen 20 mg tablet 20 mg PO TID PRN muscle spasm 05/28/21 09/15/22 cholecalciferol (vitamin D3) 50 2,000 unit PO DAILY 05/28/21 09/15/22 mcg (2,000 unit) tablet metoprolol succinate 25 mg 25 mg PO DAILY 05/28/21 09/15/22 tablet,extended release 24 hr clotrimazole 1 % topical cream appl topical 07/26/21 09/15/22 nebulizers 06/14/22 09/04/22 codeine 10 mg-guaifenesin 100 mg/5 10 ml PO Q6H PRN cough 01/11/23 mL oral liquid ergocalciferol (vitamin D2) 1,250 1,250 mcg PO QWEEK 01/11/23 mcg (50,000 unit) capsule insulin glargine 100 unit/mL (3 7 unit subcut BEDTIME 01/11/23 mL) subcutaneous pen (Lantus Solostar U-100 Insulin) losartan 25 mg tablet 25 mg PO QAM 01/11/23 metformin 1,000 mg tablet 1,000 mg PO 01/11/23 montelukast 10 mg tablet 10 mg PO BEDTIME 01/11/23 sitagliptin phosphate 25 mg tablet 25 mg PO QAM 01/11/23 (Januvia) zafirlukast 20 mg tablet 20 mg PO BID 01/11/23 alendronate 70 mg tablet 70 mg PO QWEEK 02/07/23 Previous Rx's ?Medication ?Instructions ?Recorded nystatin 100,000 unit/gram topical 1 appl topical TID #15 grams 07/26/21 cream tramadol 50 mg tablet 50 mg PO Q8H PRN postoperative 09/06/22 pain 3 days #10 tabs fluticasone furoate 200 1 inh inhalation DAILY 30 days #60 11/28/22 mcg-vilanterol 25 mcg/dose ea inhalation powder (Breo Ellipta) umeclidinium 62.5 mcg/actuation 1 inh inhalation DAILY 30 days #30 11/28/22 blister powder for inhalation ea (Incruse Ellipta) albuterol sulfate 90 mcg/actuation 2 puff PO Q6H PRN for dyspnea #18 01/09/23 aerosol inhaler (Ventolin HFA) ea ipratropium bromide 17 2 puff inhalation QID 30 days 01/09/23 mcg/actuation HFA aerosol inhaler #12.9 grams (Atrovent HFA) magnesium citrate 150 ml PO DAILY 2 days #300 mL 02/07/23 bupropion HCl 75 mg tablet 150 mg (2 x 75 mg) PO BID 30 days 03/02/23 #120 tabs apixaban 5 mg (74 tabs) tablets in 5 mg PO BID #74 ea 03/07/23 a dose pack (AirPOS DVT-PE Treat 30D Start) bisacodyl 5 mg tablet,delayed 15 mg (3 x 5 mg) PO BEDTIME 30 03/21/23 release (Dulcolax (bisacodyl)) days #120 tabs docusate sodium 100 mg capsule 100 mg PO .bid with food 30 days 03/21/23 (Colace) #60 caps famotidine 40 mg tablet 40 mg PO BEDTIME #90 tabs 03/21/23 linaclotide 290 mcg capsule 290 mcg PO QAM #30 caps 03/21/23 (Linzess) unqobq-bmpnekrr-gintioc 1 cap PO QID 30 days #120 caps 03/21/23 24,000-76,000-120,000 unit capsule,delayed rel (Creon) peg 3350-electrolytes 236 240 ml PO Q10M 1 day #4,000 mL 03/21/23 gram-22.74 gram-6.74 gram-5.86 gram solution (Golytely) simethicone 180 mg capsule 180 mg PO QID 30 days #120 caps 03/21/23 omeprazole 40 mg capsule,delayed 40 mg PO DAILY #90 caps 06/04/23 release roflumilast 250 mcg tablet 250 mcg PO DAILY 30 days #30 tabs 06/14/23 (Daliresp) tiotropium bromide 18 mcg capsule 1 cap inhalation DAILY 30 days #30 06/14/23 with inhalation device (Spiriva inhalations with HandiHaler) hydrochlorothiazide 12.5 mg tablet 12.5 mg PO DAILY #30 tabs 07/02/23 prednisone 10 mg tablet 20 mg (2 x 10 mg) PO DAILY 30 days 08/09/23 #60 tabs apixaban 5 mg (74 tabs) tablets in 5 mg PO BID #74 ea 08/11/23 a dose pack (Eliquis DVT-PE Treat 30D Start) apixaban 5 mg tablet (Eliquis) 5 mg PO BID #120 tabs 08/11/23 cefuroxime axetil 500 mg tablet 500 mg PO BID 7 days #14 tabs 08/11/23 ipratropium 20 mcg-albuterol 100 1 puff inhalation Q6H #4 grams 08/16/23 mcg/actuation mist for inhalation (Combivent Respimat) oxycodone 5 mg tablet 5 mg PO BID PRN pain #6 tabs 09/05/23 Allergies Allergy/AdvReac Type Severity Reaction Status Date / Time ibuprofen [From Motrin] Allergy Intermediate Rash Verified 09/05/23 01:34 Review of Systems 2 Review of Systems: Constitutional : No Weight loss, No Fever, No Chills, No Night Sweats, No Fatigue, No Malaise ENT/Mouth : No Hearing loss, No Ear Pain, No Nasal Congestion, No Sinus Pain, No Hoarseness, No sore throat, No Rhinorrhea, No Swallowing Difficulty Eyes: No Eye Pain, No Swelling, No Redness, No Foreign Body, No Discharge, No Vision Changes Cardiovascular : No Chest Pain, No SOB, No Dyspnea on Exertion, No Orthopnea, No Edema, No Palpitations Respiratory : No Cough, No Sputum, No Wheezing, No Smoke Exposure, No Dyspnea Gastrointestinal : No Nausea, No Vomiting, No Diarrhea, No Constipation, No abdominal Pain, No Hematochezia, No Melena Genitourinary : no irregular bleeding, No Dysuria, No Urinary Frequency, No Hematuria, No Urinary Incontinence, No Urgency, complaining of left-sided Flank Pain, No Urinary Flow Changes, No Hesitancy Musculoskeletal : No joint pain, No Myalgias, No Joint Swelling Skin : No Skin Lesions, No rash Neuro : No Weakness, No Numbness, No Paresthesias, No Loss of Consciousness, No Dizziness, No Headache Psych : No Anxiety/Panic, No Depression, No SI/HI/AH/VH, No Social Issues, Heme/Lymph: No Bruising, No Bleeding,No Lymphadenopathy Endocrine : No Polyuria, No Polydipsia, No Temperature Intolerance [facility] Past Medical History Medical History Atelectasis Viral syndrome History of COVID-19 Leukocytosis Hyperlipidemia Personal history of nicotine dependence Back pain Arthritis Anxiety and depression Asthma History of kidney stones Chronic abdominal pain Tubular adenoma of colon (~2019) Asthma-COPD overlap syndrome Osteoporosis (~2001) Irritable bowel syndrome GERD (gastroesophageal reflux disease) COPD (chronic obstructive pulmonary disease) HTN (hypertension) Surgical History History of bilateral hip replacements History of colonoscopy with polypectomy (~2020) History of colonoscopy (~2005) History of surgery on right wrist (~2014) History of hip surgery (~2001) S/P extracorporeal shock wave therapy (~2013) History of hydrocelectomy Shoulder symptoms with history of shoulder arthroplasty Family History Family History Father No problems noted. Mother No problems noted. Son No problems noted. Daughter No problems noted. Social History Social History Unable to assess alcohol history related to: Unknown Alcohol intake: unknown Patient Tobacco Use Status: Current everyday Tobacco user Tobacco use type: Cigarette Cigarette Packs Per Day: 0.5 Cigarettes Per Day: 7 Years Smoked: (onset 14yo, 1/2-3/4ppd x 37yrs, 23pyh) Second Hand Smoke Exposure: No Advance Directives: No Advance Directives Information Provided: Yes Advance Directives Date on File: 05/30/21 Do you have a plan to hurt others: No Plan service: No Current occupational status: disabled Physical Exam 2 Vital Signs: Vital Signs: Last Vital Signs Temp 98.0 F 09/05/23 01:33 Pulse 89 09/05/23 01:33 Resp 20 09/05/23 01:33 BP 146/88 H 09/05/23 01:33 Pulse Ox 94 09/05/23 01:33 O2 Del Method Room Air 09/05/23 01:33 BMI result Body Mass Index 26.1 Const: Other: Appearance: Alert. Oriented X3. No acute distress. Eyes: Pupils equal, round and reactive to light. ENT: Pharynx normal. Neck: Normal inspection. Neck supple. No lymph nodes noted. No crepitus CVS: Normal heart rate and rhythm. Pulses normal. Normal S1 and S2 Respiratory: No respiratory distress. Breath sounds normal. No Wheezing. No rales Abdomen: Soft and nontender. No rigidity. No distention. Positive CVA tenderness Skin: Skin warm and dry. Normal skin color. Normal skin turgor. Extremities: No lower extremity edema. No Lacerations. No Rash Neuro: Oriented X 3. No motor deficit. No sensory deficit. Moving all extremities. No slurred speech. CN 2 through 12 grossly intact Psych: calm, cooperative, normal affect Course Course Course Narrative: -labs pending -patient receiving sublingual Zofran and IM morphine -CT scan pending Medications Administered Discontinued Medications Generic Name Dose Route Start Last Admin Trade Name Loc PRN Reason Stop Dose Admin Morphine Sulfate 2 mg 09/05/23 02:31 09/05/23 03:22 Morphine Sulfate 2 Mg/Ml Cartridge IM 09/05/23 02:32 2 mg ONCE ONE Administration Protocol Ondansetron HCl 4 mg 09/05/23 02:32 09/05/23 03:22 Ondansetron Odt 4 Mg Tab.Rapdis TRANSLINGU 09/05/23 02:33 4 mg ONCE ONE Administration Medical Decision Making Medical Decision Making [facility] Narrative: My interpretation of labs: Patient's white blood cell count is chronically elevated. Chemistry at baseline. Urine shows blood in the urine, no UTI -. I discussed with the patient that he has chronic hematuria since at least 2018. Discussed with the patient that he needs to follow-up with his urologist as he may need a cystoscopy. -I discussed with the patient that it is possible that he may have passed a kidney stone, versus musculoskeletal pain. At this time, no obvious calculus in the ureter Differential Diagnosis Differential Diagnoses: The differential diagnosis associated with the presentation includes Lab Data MDM Lab Attestation statement: I reviewed the patient's lab results. 09/05/23 01:38 09/05/23 01:38 Labs: Lab Results 09/05/23 09/05/23 Range/Units 01:38 Unknown WBC 17.6 H (4.8-10.8) X10*3/uL RBC 4.14 L (4.60-5.80) X10*6/uL Hgb 12.7 L (14.0-18.0) g/dl Hct 38.0 L (42.0-52.0) % MCV 91.8 (80.0-98.0) fL MCH 30.7 (27.0-33.0) pg MCHC 33.4 (31.0-36.0) g/dl RDW 13.9 (11.0-16.0) % Plt Count 333 (160-400) X10*3/uL MPV 8.3 L (9.4-12.4) fL Immature Gran % (Auto) 0.9 H (0.0-0.4) % Neut % (Auto) 74.2 H (45-73) % Lymph % (Auto) 13.9 L (20-40) % [place] % (Auto) 9.2 (2-11) % Eos % (Auto) 1.2 (0-4) % Baso % (Auto) 0.6 (0-2) % Lymph # (Auto) 2.4 (1.2-4.9) X10*3/uL [place] # (Auto) 1.6 H (0.1-1.2) X10*3/uL Eos # (Auto) 0.2 (0.0-0.4) X10*3/uL Baso # (Auto) 0.1 (0.0-0.2) X10*3/uL Abs Immat Gran (auto) 0.16 H (0.00-0.03) X10*3/uL Absolute Neuts (auto) 13.1 H (2.0-8.3) x10*3/uL Absolute Nucleated RBC 0.000 (0.0-0.012) X10*3/uL Nucleated RBC % (auto) 0.0 (0.0-0.2) /100WBC Smear Tech's Comments VERIFIED Sodium 139 (135-145) mmol/L Potassium 4.0 (3.3-5.1) mmol/L Chloride 102 (96-108) mmol/L Carbon Dioxide 31 H (22-29) mmol/L Anion Gap 10 L (12-20) BUN 17 H (9-16) mg/dL Creatinine 0.69 (0.5-1.4) mg/dL Estim Creat Clear Calc 117.0 Estimated GFR > 60 Random Glucose 180 H (60-115) mg/dL Calcium 9.3 (8.4-10.2) mg/dL Total Bilirubin 0.3 (0.0-1.0) mg/dL AST 13 (5-37) U/L ALT 15 (0-40) U/L Alkaline Phosphatase 61 (39-117) U/L Total Protein 6.3 L (6.5-8.0) g/dL Albumin 3.6 (3.5-5.0) g/dL Urine Color Yellow Urine Appearance Cloudy Urine pH 6.0 (5.0-9.0) Ur Specific [place] >= 1.030 H (1.005-1.025) Urine Protein Trace (Neg-Trace) mg/dL Urine Glucose (UA) 250 H (Negative) mg/dL Urine Ketones Trace (Negative) mg/dL Urine Blood Moderate (2+) H (Negative) Urine Nitrite Negative (Negative) Ur Leukocyte Esterase Negative (Negative) Urine RBC 3-5 H (0-2) /HPF Urine WBC 0-5 (0-5) /HPF Ur Squamous Epith Cells 0-2 (0-2) /HPF Calcium Oxalate Crystal Present Urine Bacteria None Seen (None Seen) Hyaline Casts 0-2 (0-2) /LPF Independent Interpretation I performed an independent interpretation of an: CT Scan Radiology Impression Discussion of test interpretation with radiology: I have reviewed the radiologist's reading. Radiologist Impression: FINDINGS: LUNG BASES: There is scarring at the lung bases. LIVER, GALLBLADDER, AND BILIARY TREE: The liver is normal in size, shape, and attenuation. No focal hepatic lesion or biliary ductal dilatation is present. The gallbladder is unremarkable with no evidence of radiopaque gallstones, gallbladder wall thickening, or obvious pericholecystic inflammatory changes. PANCREAS: Unremarkable. SPLEEN: Unremarkable. ADRENAL GLANDS: Unremarkable. KIDNEYS AND URETERS: The kidneys are normal in size, shape, and attenuation. No hydronephrosis, hydroureter, or calculi seen. No perinephric stranding. BLADDER: The bladder is partially obscured by artifacts related to bilateral hip prostheses. GASTROINTESTINAL TRACT: The small and large bowel are unremarkable. There is retained stool The appendix is unremarkable. ABDOMINAL WALL: No significant hernia is appreciated. LYMPH NODES: Normal. VASCULAR: There is atherosclerotic plaque of the abdominal aorta PELVIC VISCERA: Unremarkable. OSSEOUS STRUCTURES: There is diffuse thoracolumbar degenerative change. CT/CT abdomen pelvis wo IV con IMPRESSION: No acute intra-abdominal or intrapelvic process to explain patient's symptoms. Fleischner guidelines were followed. Discharge Plan Discharge Clinical Impression: Chronic flank pain Patient Disposition: Home, Self-Care Instructions: Hematuria (ED), Flank Pain (ED) Additional Instructions: Please follow-up with your primary care physician tomorrow. If you have any worsening or new symptoms, please return to the emergency room or call 911 Prescriptions: New oxycodone 5 mg tablet 5 mg PO BID PRN (Reason: pain) Qty: 6 0RF Rx Instructions: Partial Fill upon patient request. No Action albuterol sulfate [Ventolin HFA] 90 mcg/actuation HFA aerosol inhaler 2 puff PO Q6H PRN (Reason: for dyspnea) Qty: 18 5RF Atrovent HFA 17 mcg/actuation HFA aerosol inhaler 2 puff inhalation QID 30 Days Qty: 12.9 11RF omeprazole 40 mg capsule,delayed release(DR/EC) 40 mg PO DAILY Qty: 90 1RF hydrochlorothiazide 12.5 mg tablet 12.5 mg PO DAILY Qty: 30 4RF prednisone 10 mg tablet 20 mg PO DAILY 30 Days Qty: 60 2RF Combivent Respimat 20-100 mcg/actuation mist 1 puff inhalation Q6H Qty: 4 11RF atorvastatin 10 mg tablet 10 mg PO BEDTIME amlodipine 5 mg tablet 5 mg PO DAILY baclofen 20 mg tablet 20 mg PO TID PRN (Reason: muscle spasm) metoprolol succinate 25 mg tablet extended release 24 hr 25 mg PO DAILY cholecalciferol (vitamin D3) 50 mcg (2,000 unit) tablet 2,000 unit PO DAILY Eliquis DVT-PE Treat 30D Start 5 mg (74 tabs) tablets,dose pack 5 mg PO BID Qty: 74 0RF Rx Instructions: 10mg BID for 7 days followed by 5mg BID cefuroxime axetil 500 mg tablet 500 mg PO BID 7 Days Qty: 14 0RF Eliquis DVT-PE Treat 30D Start 5 mg (74 tabs) tablets,dose pack 5 mg PO BID Qty: 74 0RF Eliquis 5 mg tablet 5 mg PO BID Qty: 120 0RF Rx Instructions: Start after finishing starter package tramadol 50 mg tablet 50 mg PO Q8H PRN (Reason: postoperative pain) 3 Days Qty: 10 0RF Rx Instructions: do not take this medicine within 2 hours of HS. instead OTC Tylenol 500 1-2 tabs p.o. can be taken at night if his pain is severe. clotrimazole 1 % cream topical nystatin 100,000 unit/gram cream 1 appl topical TID Qty: 15 0RF (DME) nebulizers Misc See Rx Instructions .Route Rx Instructions: As directed magnesium citrate Solution 150 ml PO DAILY 2 Days Qty: 300 0RF Incruse Ellipta 62.5 mcg/actuation blister with device 1 inh inhalation DAILY 30 Days Qty: 30 11RF fluticasone furoate-vilanterol [Breo Ellipta] 200-25 mcg/dose blister with device 1 inh inhalation DAILY 30 Days Qty: 60 11RF ergocalciferol (vitamin D2) 1,250 mcg (50,000 unit) capsule 1,250 mcg PO QWEEK Januvia 25 mg tablet 25 mg PO QAM codeine-guaifenesin 10-100 mg/5 mL liquid 10 ml PO Q6H PRN (Reason: cough) losartan 25 mg tablet 25 mg PO QAM insulin glargine [Lantus Solostar U-100 Insulin] 100 unit/mL (3 mL) insulin pen 7 unit subcut BEDTIME metformin 1,000 mg tablet 1,000 mg PO zafirlukast 20 mg tablet 20 mg PO BID Rx Instructions: must be taken on empty stomach, at least 1 hr before or 2 hrs after a meal/food montelukast 10 mg tablet 10 mg PO BEDTIME alendronate 70 mg tablet 70 mg PO QWEEK bupropion HCl 75 mg tablet 150 mg PO BID 30 Days Qty: 120 6RF peg 3350-electrolytes [Golytely] 236-22.74-6.74 -5.86 gram recon soln 240 ml PO Q10M 1 Days Qty: 4000 0RF Rx Instructions: until fecal effluent is clear; do not exceed a total volume of 2,000 mL famotidine 40 mg tablet 40 mg PO BEDTIME Qty: 90 1RF Linzess 290 mcg capsule 290 mcg PO QAM Qty: 30 6RF Creon 24,000-76,000 -120,000 unit capsule,delayed release(DR/EC) 1 cap PO QID 30 Days Qty: 120 6RF Rx Instructions: administer with meals and/or snacks simethicone 180 mg capsule 180 mg PO QID 30 Days Qty: 120 3RF Rx Instructions: after meals bisacodyl [Dulcolax (bisacodyl)] 5 mg tablet,delayed release (DR/EC) 15 mg PO BEDTIME 30 Days Qty: 120 6RF docusate sodium [Colace] 100 mg capsule 100 mg PO .bid with food 30 Days Qty: 60 6RF tiotropium bromide [Spiriva with HandiHaler] 18 mcg capsule, w/inhalation device 1 cap inhalation DAILY 30 Days Qty: 30 11RF Rx Instructions: puncture 1 cap using device; one dose = 2 inhalations roflumilast [Daliresp] 250 mcg tablet 250 mcg PO DAILY 30 Days Qty: 30 5RF Referrals: Dangelo Brown MD [Physician] - 09/06/23 Print Language: Australian
[2023-09-05] MEDS: Morphine Sulfate 2 MG/ML CARTRIDGE IM (03:22)
[2023-09-05] MEDS: Ondansetron ODT 4 MG TAB.RAPDIS TRANSLINGU (03:22)
[2023-09-05 03:36] LABS: Appearance Urine Cloudy; Color Urine Yellow; Glucose Urine UA 250 mg/dL (Negative); Leukocyte Esterase Urine Negative (Negative); Nitrite Urine Negative (Negative); Specific Gravity - Urine >= 1.030 (1.005-1.025); UMIC TRIGGER UACC YES; Urine Blood Moderate (2+) (Negative); Urine Ketones Trace mg/dL (Negative); Urine Protein Trace mg/dL (Neg-Trace)
[2023-09-05 03:48] LABS: Bacteria Urine None Seen (None Seen); Calcium Oxalate Crystals Urine Present; Hyaline Casts Urine 0-2 /LPF (0-2); Squamous Epithelial Cell Urine 0-2 /HPF (0-2); WBC Urine 0-5 /HPF (0-5)
[2023-09-05 04:40] VITALS: BP 128/68; PULSE 83; RESP 18; TEMP 36.5; O2SAT 97
[2023-09-05] MEDS: oxyCODONE HCl Immed Release 5 MG TABLET PO (04:48)
[2023-09-05 04:50] VITALS: BP 128/68; PULSE 83; RESP 18; TEMP 36.5; O2SAT 97
== END 2023-09-05 04:51 | disposition home or self-care (01) ==
PROVIDERS: Emergency Provider Emergency Medicine; PCP Student in an Organized Health Care Education/Training Program
DX: R10.9 Unspecified abdominal pain (principal); Z79.899 Other long term (current) drug therapy; Z87.442 Personal history of urinary calculi
CPT/HCPCS: 36415; 74176; 80053; 81001; 85025; 96372; 99281; 99284; J2270

== ENCOUNTER 2023-10-01 14:43 | Outpatient (AMB) | payer MEDICAID, SELFPAY ==
--- NOTE | 2023-10-01 14:46 | A.OFFVIS_ITS ---
Vital Signs 10/01/23 14:48 Height 5 ft 8 in Weight 162 lb BMI 24.6 Pulse 92 Pulse Source Pulse Oximeter Pulse Oximetry (%) 94 Oxygen Delivery Method Room Air Intake Visit Reasons: copd Senior Process Analyst Required: No Allergies ibuprofen [From Motrin] Allergy (Intermediate, Verified 10/01/23 14:49) Rash HPI Comments Details: The patient is a 53-year-old gentleman with known tobacco dependency since asthma COPD overlap syndrome. The patient continues to have significant shortness of breath and wheezing. Moderate severity. But, overall better. he has been on chronic steroids. He has not been able to go below 20 mg. he does have productive sputum, which is whitish in color. Associated with shortness of breath. He has gained some weight due to the prednisone. At this point the patient will be a good candidate for Daliresp. We also talked about smoking cessation and the importance to quit. He has been on Chantix and appears to be working. he is going to continue on Chantix at this time. 08/28/2022 the patient is here for pulmonary follow-up visit. Overall he is doing a little better from a respiratory status. However, patient developed some compression fractures. He has significant osteoporosis due to his chronic prednisone use. We tried decreasing his prednisone dose however, the patient has frequent exacerbations. He is also on chronic prednisone likely prednisone dependent. We did try Xolair but the patient did not want to take the sections. We can have him start Daliresp to see if this helps decrease the need for prednisone. However, really what is going to be most important for him to quit smoking and the patient is not willing to quit altogether. He did cut down which is good. I did provide him with 1 mg prednisone tablets. He can decrease by 1 mg every 1 week to try to come down to at least 10 mg daily. At that point will try to get him a little lower if possible although likely will require chronic dose. He is going to continue his respiratory therapy. Will try to simplify his regimen by placing him on Trelegy. He needs to be careful not to over medicate with inhalers. 10/20/2022 the patient is here for pulmonary follow-up visit. He is complaining of significant chest congestion. Difficult to expectorate. Moderate severity. Unfortunately when he tries to cough he started developing significant abdominal discomfort. Then, this results in significant discomfort and pain and sometimes he can even sleep. Sometimes he has to cry. The patient is uncomfortable overall. Unfortunately he continues to smoke cigarettes. He has been trying to cut down although is still very difficult for him. Otherwise been using nebulized therapy. We did review his imaging studies. His last CT scan was back in March demonstrating evidence of bronchitis and some bronchiectatic changes at the bases. All some some mosaic pattern. We did talk about considering bronchoscopy to further address his underlying chronic bronchitis and assess for any smoldering infections. In addition to this the patient does complaint of significant abdominal distention. He does have diabetes and is at risk for gastroparesis. Therefore we will increase his pulmonary toilet he agent to 500 mg 3 times a week. 03/02/2013 The patient is here for a pulmonary follow-up visit. Still complaining of chest tightness and wheezing. Has been using the combivent too much.. He has been on the azithromycin 3 times a week. She did not get the Trelegy inhaler as it was not covered. Therefore will had sent for Breo and Incruse that he can take daily. But he was only using the Incruse. Unfortunately does smoke cigarettes. He did have some success with the chantix, but, them stopped it due to adverse side effects including headache. He will go ahaed and retry it at a lower dose. Otherwise if it is not better, he will start Wellbutrim.He has been struggling to quit. We had talked about a bronchoscopy but the patient failed to show up. This point will hold off any bronchoscopy set this time. The patient needs to do a better job with adherence. He still continues to be on prednisone. In the meantime, he did tell me he is having some SSCP with exertion. No CP at this time. Has not had a recent cardiac workup. Will follow-up in 3-4 months. 06/14/2023 the patient is here for pulmonary follow-up visit. He continues to complain of the cough which is productive in nature. Moderate severity. Associated with left-sided pleuritic pain. Not sure where the pain is coming from. We did review his CTA that he had back in February demonstrating no pleural-based disease or anything to explain the left-sided discomfort. He does have significant bronchitis with mucus plugging in does have an area of atelectasis in the lingular area. We had scheduled him for bronchoscopy a couple times in the past but he would no-show to the procedures. Therefore we no longer schedule him for bronchoscopy. Since the patient is having worsening symptoms will give him 1 more opportunity to have the bronchoscopy. The patient also should continue with the lung cancer screening program. Right now he has not due till the winter of 2023. regards his medications the patient had been on Breo and Incruse. He feels the Spiriva had been working better than Incruse. Therefore we can switch him over this time. Still, explained to him that the inhalers not going to work if he continues to smoke cigarettes. He is also having significant back pain. Likely due to his significant bone disease from his chronic prednisone use. He is going to try to cut down some. 10/01/2023 the patient is here for a pulmonary follow-up visit. The patient overall has been okay. His cough is still congested in nature. Still complaining of left-sided flank discomfort. Indeed he has had a full workup including a CTA and also had a CT scan of the abdomen. No clear etiology for the discomfort except that he does have some atelectasis at the left base which could be contributing to some pleuritic discomfort. In addition to that he does have some vertebral disease and he had been evaluated by spine and also pain specialist. Although, no significant therapeutic options available. The patient did however have significant constipation. This is likely causing significant distention of his abdomen and therefore limiting his respiratory ca pacity. Therefore he will try to aggressively try to clear his bowels. In the meantime the patient will call if he has no better we can consider bronchoscopy for therapeutic cleaning of the airways evaluated the left base specially where he has the atelectasis to make sure that is no significant mucus plugging or obstructive mass that could be causing the findings on the CT scan. Patient still smoking. He knows he needs to quit altogether. He is still working on that and will slowly cut down. [facility] Medical History Atelectasis Viral syndrome History of COVID-19 Leukocytosis Hyperlipidemia Personal history of nicotine dependence Back pain Arthritis Anxiety and depression Asthma History of kidney stones Chronic abdominal pain Tubular adenoma of colon (~2019) Asthma-COPD overlap syndrome Osteoporosis (~2001) Irritable bowel syndrome GERD (gastroesophageal reflux disease) COPD (chronic obstructive pulmonary disease) HTN (hypertension) Surgical History History of bilateral hip replacements History of colonoscopy with polypectomy (~2020) History of colonoscopy (~2005) History of surgery on right wrist (~2014) History of hip surgery (~2001) S/P extracorporeal shock wave therapy (~2013) History of hydrocelectomy Shoulder symptoms with history of shoulder arthroplasty Family History Father No problems noted. Mother No problems noted. Son No problems noted. Daughter No problems noted. Social History Unable to assess alcohol history related to: Unknown Alcohol intake: unknown Patient Tobacco Use Status: Current everyday Tobacco user Tobacco use type: Cigarette Cigarette Packs Per Day: 0.5 Cigarettes Per Day: 7 Years Smoked: (onset 14yo, 1/2-3/4ppd x 37yrs, 23pyh) Second Hand Smoke Exposure: No Advance Directives Date on File: 05/30/21 service: No Current occupational status: disabled Review of Systems Const Denies chills, Denies difficulty sleeping, Reports fatigue, Denies fever(s), Reports headache(s) and Denies night sweats ENT Denies change in voice, Reports headache(s), Denies lip swelling, Denies mouth pain, Reports nasal congestion, Reports nasal discharge and Denies tongue swelling Card Reports leg edema and Reports dyspnea on exertion Resp Reports chest congestion, Reports cough, Denies hemoptysis, Reports dyspnea on exertion and Reports wheezing GI Reports abdominal pain, Reports bloating and Reports constipation Musc Reports as per HPI and Reports back pain Neuro Denies Neuro-related abnormal movements and Reports headache(s) Psych Denies no additional complaints Endo Reports fatigue Jamie/Lymph Denies easy bleeding and Denies lymphadenopathy Aller/Immun Denies lip swelling, Denies tongue swelling and Reports wheezing Physical Exam Vital Signs: Last Vital Signs Pulse 92 10/01/23 14:48 Pulse Ox 94 10/01/23 14:48 Oxygen Delivery Method Room Air 10/01/23 14:48 BMI result Body Mass Index 24.6 Const General: alert and in distress mild and respiratory Neck Neck: Yes normal visual inspection, Yes full ROM and Yes no lymphadenopathy Chest Chest palpation & inspection: normal inspection of the chest Resp Effort & Inspection: prolonged expiratory phase Auscultation: no crackles, no wheezes and diminished lung sounds Cardio Rate: regular rate Rhythm: regular rhythm Heart sounds: S1 normal heart sound present and S2 normal heart sound present GI Inspection: Yes distended Palpation (GI): nontender Skin General skin exam: rashes and/or lesions noted Quality Reporting (2019) Adult ([facility] 13805/10/68) Smoking risk assessment performed?: Yes Patient Tobacco Use Status: Current everyday Tobacco user Assessment & Plan Assessment & Plan (1) COPD (chronic obstructive pulmonary disease): Code(s): J44.9 - Chronic obstructive pulmonary disease, unspecified Category: Medical Qualifiers: COPD type: COPD with acute exacerbation Qualified Code(s): J44.1 - Chronic obstructive pulmonary disease with (acute) exacerbation (2) Tobacco dependence: Code(s): F17.200 - Nicotine dependence, unspecified, uncomplicated Category: Medical (3) Chest pain: Code(s): R07.9 - Chest pain, unspecified Category: Medical Qualifiers: Chest pain type: unspecified Qualified Code(s): R07.9 - Chest pain, unspecified (4) Atelectasis: Code(s): J98.11 - Atelectasis Category: Medical Plan continue Accolate 20mg BID Spiriva handihaler continue Breo continue Combivent continue Azithromycin 500mg MWF LDCT program short-acting beta agonist as needed Gabapentin at night Daliresp 250mcg prednisone 10mg baseline, will cut down Plan for bronchoscopy to assess atelectasis and chronic bronchitis. He will need to stop the Eliquis 3 days prior follow-up 3-4 months Medications: New magnesium hydroxide (Dulcolax (magnesium hydroxide)) 400 mg (5 mL) PO DAILY PRN 3,780 mL 1RF constipation Coding Level of Care Code Est Pt Level 4 (95695) Diagnoses Chronic obstructive pulmonary disease with acute exacerbation J44.1 COPD type: COPD with acute exacerbation Tobacco dependence F17.200 Chest pain, unspecified type R07.9 Chest pain type: unspecified Atelectasis J98.11 Time Spent (min) 17
[2023-10-01 14:48] VITALS: PULSE 92; O2SAT 94; BMI 24.6
== END 2023-10-01 15:17 | disposition home or self-care (01) ==
PROVIDERS: PCP Student in an Organized Health Care Education/Training Program; Visit Provider Hospitalist
DX: J44.1 Chronic obstructive pulmonary disease with (acute) exacerbation (principal); F17.200 Nicotine dependence, unspecified, uncomplicated; R07.9 Chest pain, unspecified; J98.11 Atelectasis
CPT/HCPCS: 99214

== ENCOUNTER → 2023-10-01 14:43 | Outpatient (BNVA) | payer MEDICAID, SELFPAY | PROVIDERS: PCP Student in an Organized Health Care Education/Training Program; Visit Provider Hospitalist | DX: J44.1 Chronic obstructive pulmonary disease with (acute) exacerbation (principal); J98.11 Atelectasis; R07.9 Chest pain, unspecified; F17.210 Nicotine dependence, cigarettes, uncomplicated | CPT/HCPCS: 99212 ==

== ENCOUNTER 2023-10-02 13:34 | Outpatient (AMB) | payer MEDICAID, SELFPAY ==
--- NOTE | 2023-10-02 13:57 | A.OFFVIS_ITS ---
Intake Visit Reasons: OV - left Olecranon bursitis Intake Note: Jean Claude 53 year old right hand dominant male who presents today for a follow up appointment for his left olecranon bursitis. Patient reports he is still having pain in his elbow and in his hand. Patient reports that the pain is moving to his right hand as well. Patient is having concerns of numbness and tingling in his fingers. Allergies ibuprofen [From Motrin] Allergy (Intermediate, Verified 10/02/23 14:08) Rash HPI HPI OV - left Olecranon bursitis: Details: 53-year-old right hand dominant male, who is [place] speaking, presents in the office today for a follow-up of left olecranon bursitis. I last saw the patient in the office on 09/04/2023 when an ALINE wrap was applied for compression. ? While in the office today, the patient reports he is still having pain in the left elbow and left hand. He confirms numbness and tingling in his left digits. ? ? The patient reports pain in his right hand. ? PFSH Medical History Atelectasis Viral syndrome History of COVID-19 Leukocytosis Hyperlipidemia Personal history of nicotine dependence Back pain Arthritis Anxiety and depression Asthma History of kidney stones Chronic abdominal pain Tubular adenoma of colon (~2019) Asthma-COPD overlap syndrome Osteoporosis (~2001) Irritable bowel syndrome GERD (gastroesophageal reflux disease) COPD (chronic obstructive pulmonary disease) HTN (hypertension) Surgical History History of bilateral hip replacements History of colonoscopy with polypectomy (~2020) History of colonoscopy (~2005) History of surgery on right wrist (~2014) History of hip surgery (~2001) S/P extracorporeal shock wave therapy (~2013) History of hydrocelectomy Shoulder symptoms with history of shoulder arthroplasty Family History Father No problems noted. Mother No problems noted. Son No problems noted. Daughter No problems noted. Social History Unable to assess alcohol history related to: Unknown Alcohol intake: unknown Patient Tobacco Use Status: Current everyday Tobacco user Tobacco use type: Cigarette Cigarette Packs Per Day: 0.5 Cigarettes Per Day: 7 Years Smoked: (onset 14yo, 1/2-3/4ppd x 37yrs, 23pyh) Second Hand Smoke Exposure: No Advance Directives Date on File: 05/30/21 service: No Current occupational status: disabled Review of Systems Const All systems reviewed & are unremarkable except as noted in HPI and below Physical Exam Const General: cooperative, healthy appearing and no acute distress Resp Effort & Inspection: normal respiratory effort and able to speak in complete sentences Cardio Rate: regular rate Peripheral pulses: Peripheral pulses 2+ throughout GI Palpation (GI): Soft to palpation Skin Lesions: no lesions Rashes: no rashes Extrem Other: Left elbow: Normal to inspection. Olecranon bursitis roughly golf ball sized. No surrounding erythema or drainage. No signs of infection. No tenderness to palpation over the olecranon. No tenderness to the medial or lateral epicondyle. NVI.? Quality Reporting (2019) Adult ([facility] 138/05/10/68) Smoking risk assessment performed?: Yes Patient Tobacco Use Status: Current everyday Tobacco user Assessment & Plan Assessment & Plan (1) Olecranon bursitis, left elbow: Code(s): M70.22 - Olecranon bursitis, left elbow Category: Medical (2) Carpal tunnel syndrome of left wrist: Code(s): G56.02 - Carpal tunnel syndrome, left upper limb Category: Medical (3) Cubital tunnel syndrome on left: Code(s): G56.22 - Lesion of ulnar nerve, left upper limb Category: Medical (4) Chronic anticoagulation: Comment: on Eliquis Code(s): Z79.01 - halfway (current) use of anticoagulants Category: Medical Plan Mr. Breaux is a 53-year-old right hand dominant male, who is [place] speaking, presents in the office today for a follow-up of left olecranon bursitis. I last saw the patient in the office on 09/04/2023 when an ALINE wrap was applied for compression. ? While in the office today, the patient reports he is still having pain in the left elbow and left hand. He confirms numbness and tingling in his left digits. ? ? The patient reports pain in his right hand.? ? The patient olecranon bursitis and bleeding due to being on Eliquis has improved since his last appointment. However, he still has numbness and tingling. I would like the patient to be further evaluated by Dr. Noel to discuss cubital and carpal tunnel release. Due to the patient?s comorbidities, i feel he should discuss this procedure more in depth with the surgeon. He has an upcoming raysa ointment with a new PCP who should be monitoring his anticoagulant. Follow-up will after his appointment with his new PCP and with Dr. Noel, or sooner if needed. ? ? EMG study of the left upper extremity, obtained on 07/10/2023, revealed: ? 1. [id number] left median neuropathy across carpal tunnel.? 2. 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 Patient Instructions: Scribed by Beverly Brennan er medical technician, for April Pritchett PA-C on 10/02/2023 at 1:40 pm, EST.? Coding Level of Care Code Est Pt Level 3 (74177) Diagnoses Olecranon bursitis, left elbow M70.22 Carpal tunnel syndrome of left wrist G56.02 Cubital tunnel syndrome on left G56.22 Chronic anticoagulation Z79.01
== END 2023-10-02 14:36 | disposition home or self-care (01) ==
PROVIDERS: PCP Student in an Organized Health Care Education/Training Program; Visit Provider Physician Assistant
DX: M70.22 Olecranon bursitis, left elbow (principal); G56.02 Carpal tunnel syndrome, left upper limb; G56.22 Lesion of ulnar nerve, left upper limb; Z79.01 Long term (current) use of anticoagulants
CPT/HCPCS: 99213

== ENCOUNTER → 2023-10-02 13:34 | Outpatient (BNVA) | payer MEDICAID, SELFPAY | PROVIDERS: PCP Student in an Organized Health Care Education/Training Program; Visit Provider Physician Assistant | DX: M70.22 Olecranon bursitis, left elbow (principal); G56.02 Carpal tunnel syndrome, left upper limb; G56.22 Lesion of ulnar nerve, left upper limb; Z79.01 Long term (current) use of anticoagulants | CPT/HCPCS: 99212 ==

== ENCOUNTER 2023-10-22 13:27 | Outpatient (AMB) | payer MEDICAID, SELFPAY ==
[2023-10-22 13:29] VITALS: BP 140/80; PULSE 83; BMI 25.2
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
== END 2023-10-22 14:08 | disposition home or self-care (01) ==
PROVIDERS: PCP Internal Medicine; Referring Provider Internal Medicine; Visit Provider Internal Medicine Endocrinology, Diabetes & Metabolism
DX: M81.0 Age-related osteoporosis without current pathological fracture (principal)
CPT/HCPCS: 99213

== ENCOUNTER → 2023-10-22 13:27 | Outpatient (BNVA) | payer MEDICAID, SELFPAY | PROVIDERS: PCP Internal Medicine; Visit Provider Internal Medicine Endocrinology, Diabetes & Metabolism | DX: M81.0 Age-related osteoporosis without current pathological fracture (principal) | CPT/HCPCS: 99212 ==

== ENCOUNTER 2023-10-25 11:22 | Outpatient (REF) | payer MEDICAID, SELFPAY | END 2023-10-25 11:23 | disposition home or self-care (01) | LOC: HO.HOSX 11:22 | PROVIDERS: Visit Provider Physician Assistant | DX: Z13.89 Encounter for screening for other disorder (principal) ==

== ENCOUNTER → 2023-11-15 13:00 | Outpatient (BNVA) | payer MEDICAID, SELFPAY | PROVIDERS: PCP Student in an Organized Health Care Education/Training Program; Visit Provider Physician Assistant ==

== ENCOUNTER 2024-01-08 14:46 | Outpatient (AMB) | payer MEDICAID, SELFPAY ==
--- NOTE | 2024-01-08 14:56 | MHC.OFFVIS ---
Vital Signs 01/08/24 14:57 Height 5 ft 8 in Weight 165 lb 9.074 oz BMI 25.2 BP 132/70 Blood Pressure Location Rt brachial Position Sitting Pulse 89 Pulse Source Pulse Oximeter Pulse Oximetry (%) 94 Oxygen Delivery Method Room Air Intake Visit Reasons: COPD Allergies ibuprofen [From Motrin] Allergy (Intermediate, Verified 01/08/24 14:56) Rash HPI Comments Details: The patient is a 53-year-old gentleman with known tobacco dependency since asthma COPD overlap syndrome. The patient continues to have significant shortness of breath and wheezing. Moderate severity. But, overall better. he has been on chronic steroids. He has not been able to go below 20 mg. he does have productive sputum, which is whitish in color. Associated with shortness of breath. He has gained some weight due to the prednisone. At this point the patient will be a good candidate for Daliresp. We also talked about smoking cessation and the importance to quit. He has been on Chantix and appears to be working. he is going to continue on Chantix at this time. 08/28/2022 the patient is here for pulmonary follow-up visit. Overall he is doing a little better from a respiratory status. However, patient developed some compression fractures. He has significant osteoporosis due to his chronic prednisone use. We tried decreasing his prednisone dose however, the patient has frequent exacerbations. He is also on chronic prednisone likely prednisone dependent. We did try Xolair but the patient did not want to take the sections. We can have him start Daliresp to see if this helps decrease the need for prednisone. However, really what is going to be most important for him to quit smoking and the patient is not willing to quit altogether. He did cut down which is good. I did provide him with 1 mg prednisone tablets. He can decrease by 1 mg every 1 week to try to come down to at least 10 mg daily. At that point will try to get him a little lower if possible although likely will require chronic dose. He is going to continue his respiratory therapy. Will try to simplify his regimen by placing him on Trelegy. He needs to be careful not to over medicate with inhalers. 10/20/2022 the patient is here for pulmonary follow-up visit. He is complaining of significant chest congestion. Difficult to expectorate. Moderate severity. Unfortunately when he tries to cough he started developing significant abdominal discomfort. Then, this results in significant discomfort and pain and sometimes he can even sleep. Sometimes he has to cry. The patient is uncomfortable overall. Unfortunately he continues to smoke cigarettes. He has been trying to cut down although is still very difficult for him. Otherwise been using nebulized therapy. We did review his imaging studies. His last CT scan was back in March demonstrating evidence of bronchitis and some bronchiectatic changes at the bases. All some some mosaic pattern. We did talk about considering bronchoscopy to further address his underlying chronic bronchitis and assess for any smoldering infections. In addition to this the patient does complaint of significant abdominal distention. He does have diabetes and is at risk for gastroparesis. Therefore we will increase his pulmonary toilet he agent to 500 mg 3 times a week. 03/02/2013 The patient is here for a pulmonary follow-up visit. Still complaining of chest tightness and wheezing. Has been using the combivent too much.. He has been on the azithromycin 3 times a week. She did not get the Trelegy inhaler as it was not covered. Therefore will had sent for Breo and Incruse that he can take daily. But he was only using the Incruse. Unfortunately does smoke cigarettes. He did have some success with the chantix, but, them stopped it due to adverse side effects including headache. He will go ahaed and retry it at a lower dose. Otherwise if it is not better, he will start Wellbutrim.He has been struggling to quit. We had talked about a bronchoscopy but the patient failed to show up. This point will hold off any bronchoscopy set this time. The patient needs to do a better job with adherence. He still continues to be on prednisone. In the meantime, he did tell me he is having some SSCP with exertion. No CP at this time. Has not had a recent cardiac workup. Will follow-up in 3-4 months. 06/14/2023 the patient is here for pulmonary follow-up visit. He continues to complain of the cough which is productive in nature. Moderate severity. Associated with left-sided pleuritic pain. Not sure where the pain is coming from. We did review his CTA that he had back in February demonstrating no pleural-based disease or anything to explain the left-sided discomfort. He does have significant bronchitis with mucus plugging in does have an area of atelectasis in the lingular area. We had scheduled him for bronchoscopy a couple times in the past but he would no-show to the procedures. Therefore we no longer schedule him for bronchoscopy. Since the patient is having worsening symptoms will give him 1 more opportunity to have the bronchoscopy. The patient also should continue with the lung cancer screening program. Right now he has not due till the winter. regards his medications the patient had been on Breo and Incruse. He feels the Spiriva had been working better than Incruse. Therefore we can switch him over this time. Still, explained to him that the inhalers not going to work if he continues to smoke cigarettes. He is also having significant back pain. Likely due to his significant bone disease from his chronic prednisone use. He is going to try to cut down some. 10/01/2023 the patient is here for a pulmonary follow-up visit. The patient overall has been okay. His cough is still congested in nature. Still complaining of left-sided flank discomfort. Indeed he has had a full workup including a CTA and also had a CT scan of the abdomen. No clear etiology for the discomfort except that he does have some atelectasis at the left base which could be contributing to some pleuritic discomfort. In addition to that he does have some vertebral disease and he had been evaluated by spine and also pain specialist. Although, no significant therapeutic options available. The patient did however have significant constipation. This is likely causing significant distention of his abdomen and therefore limiting his respiratory capacity. Therefore he will try to aggressively try to clear his bowels. In the meantime the patient will call if he has no better we can consider bronchoscopy for therapeutic cleaning of the airways evaluated the left base specially where he has the atelectasis to make sure that is no significant mucus plugging or obstructive mass that could be causing the findings on the CT scan. Patient still smoking. He knows he needs to quit altogether. He is still working on that and will slowly cut down. 01/08/2024 the patient is here for a pulmonary follow-up visit. He continues to struggle with his breathing. Has a productive cough with difficult the expectorating. The patient has been on multiple medications without any significant improvement. Patient understands that he is not going to get better until quit smoking. This has been a big struggle for him. He also continues on chronic steroids and he does have significant osteoporosis already. He has other issues going on as well. We had talked about a bronchoscopy with then he failed to show for the appointment. Will go ahead and give him another opportunity to schedule a bronchoscopy for both diagnostic and therapeutic purposes. In the meantime I did give him prescription for Daliresp during the last visit and did take it because was not sure what it was. I again explained to him and educated him about all the medications that he is taken from a pulmonary standpoint. [facility] Medical History Atelectasis Viral syndrome History of COVID-19 Leukocytosis Hyperlipidemia Personal history of nicotine dependence Back pain Arthritis Anxiety and depression Asthma History of kidney stones Chronic abdominal pain Tubular adenoma of colon (~2019) Asthma-COPD overlap syndrome Osteoporosis (~2001) Irritable bowel syndrome GERD (gastroesophageal reflux disease) COPD (chronic obstructive pulmonary disease) HTN (hypertension) Surgical History History of bilateral hip replacements History of colonoscopy with polypectomy (~2020) History of colonoscopy (~2005) History of surgery on right wrist (~2014) History of hip surgery (~2001) S/P extracorporeal shock wave therapy (~2013) History of hydrocelectomy Shoulder symptoms with history of shoulder arthroplasty Family History Father No problems noted. Mother No problems noted. Son No problems noted. Daughter No problems noted. Social History (Updated 12/24/23 @ 14:15 by CHRISTIN Conner) Unable to assess alcohol history related to: Unknown Alcohol intake: unknown Patient Tobacco Use Status: Current everyday Tobacco user Tobacco use type: Cigarette Cigarette Packs Per Day: 0.5 Cigarettes Per Day: 7 Years Smoked: (onset 14yo, 1/2-3/4ppd x 37yrs, 23pyh) Second Hand Smoke Exposure: No Advance Directives Date on File: 05/30/21 service: No Current occupational status: disabled Current occupation: rt handed Review of Systems Const Denies chills, Denies difficulty sleeping, Reports fatigue, Denies fever(s), Reports headache(s) and Denies night sweats ENT Denies change in voice, Reports headache(s), Denies lip swelling, Denies mouth pain, Reports nasal congestion, Reports nasal discharge and Denies tongue swelling Card Reports leg edema and Reports dyspnea on exertion Resp Reports chest congestion, Reports cough, Denies hemoptysis, Reports dyspnea on exertion and Reports wheezing GI Reports abdominal pain, Reports bloating and Reports constipation Musc Reports as per HPI and Reports back pain Neuro Denies Neuro-related abnormal movements and Reports headache(s) Psych Denies no additional complaints Endo Reports fatigue Jamie/Lymph Denies easy bleeding and Denies lymphadenopathy Aller/Immun Denies lip swelling, Denies tongue swelling and Reports wheezing Physical Exam Vital Signs: Last Vital Signs Pulse 89 01/08/24 14:57 BP 132/70 01/08/24 14:57 Pulse Ox 94 01/08/24 14:57 Oxygen Delivery Method Room Air 01/08/24 14:57 BMI result Body Mass Index 25.2 Const General: alert and in distress mild and respiratory Neck Neck: Yes normal visual inspection, Yes full ROM and Yes no lymphadenopathy Chest Chest palpation & inspection: normal inspection of the chest Resp Effort & Inspection: prolonged expiratory phase Auscultation: no crackles, no wheezes and diminished lung sounds Cardio Rate: regular rate Rhythm: regular rhythm Heart sounds: S1 normal heart sound present and S2 normal heart sound present GI Inspection: Yes distended Palpation (GI): nontender Skin General skin exam: rashes and/or lesions noted Quality Reporting (2019) Adult ([facility] 13805/10/68) Smoking risk assessment performed?: Yes Patient Tobacco Use Status: Current everyday Tobacco user Assessment & Plan Assessment & Plan (1) COPD (chronic obstructive pulmonary disease): Code(s): J44.9 - Chronic obstructive pulmonary disease, unspecified Category: Medical Qualifiers: COPD type: COPD with acute exacerbation Qualified Code(s): J44.1 - Chronic obstructive pulmonary disease with (acute) exacerbation (2) Tobacco dependence: Code(s): F17.200 - Nicotine dependence, unspecified, uncomplicated Category: Medical (3) Chest pain: Code(s): R07.9 - Chest pain, unspecified Category: Medical Qualifiers: Chest pain type: unspecified Qualified Code(s): R07.9 - Chest pain, unspecified (4) Atelectasis: Code(s): J98.11 - Atelectasis Category: Medical Plan continue Accolate 20mg BID Spiriva handihaler continue Breo continue Combivent continue Azithromycin 500mg MWF LDCT program short-acting beta agonist as needed stopped Gabapentin at night Daliresp 250mcg prednisone 10mg baseline, will cut down Plan for bronchoscopy to assess atelectasis and chronic bronchitis. He will need to stop the Eliquis 3 days prior follow-up 3-4 months Medications: New azithromycin Sunday, Sunday, Sunday 500 mg PO 3XW 12 tabs 6RF 28 days Changed From baclofen 20 mg PO TID PRN muscle spasm To baclofen 20 mg PO TID PRN 90 tabs 2RF muscle spasm 30 days Coding Level of Care Code Est Pt Level 4 (06086) Complex EM visit Add On G2211 Diagnoses Chronic obstructive pulmonary disease with acute exacerbation J44.1 COPD type: COPD with acute exacerbation Tobacco dependence F17.200 Chest pain, unspecified type R07.9 Chest pain type: unspecified Atelectasis J98.11 Time Spent (min) 17
[2024-01-08 14:57] VITALS: BP 132/70; PULSE 89; O2SAT 94; BMI 25.2
== END 2024-01-08 15:16 | disposition home or self-care (01) ==
PROVIDERS: PCP Student in an Organized Health Care Education/Training Program; Visit Provider Hospitalist
DX: J44.1 Chronic obstructive pulmonary disease with (acute) exacerbation (principal); F17.200 Nicotine dependence, unspecified, uncomplicated; R07.9 Chest pain, unspecified; J98.11 Atelectasis
CPT/HCPCS: 99214

== ENCOUNTER → 2024-01-08 14:46 | Outpatient (BNVA) | payer MEDICAID, SELFPAY | PROVIDERS: PCP Student in an Organized Health Care Education/Training Program; Visit Provider Hospitalist | DX: J44.9 Chronic obstructive pulmonary disease, unspecified (principal); R07.9 Chest pain, unspecified; J98.11 Atelectasis; F17.210 Nicotine dependence, cigarettes, uncomplicated | CPT/HCPCS: 99212 ==

== ENCOUNTER → 2024-01-21 12:25 | Day surgery (SDC) | payer MEDICAID, SELFPAY ==
--- NOTE | 2024-01-21 13:45 | P.CONAN_ITS ---
HPI - Anesthesia Eval Consult details Narrative: 53yo male patient for Fiberoptic bronchoscopy. Patient did not stop eliquis or sitagliptin. Dr Elizabeth informed. Spoke to patient. Procedure cancelled [facility] Active Problems Active Problems: All Active Problems Chronic anticoagulation (Acute) Cubital tunnel syndrome on left (Acute) Olecranon bursitis, left elbow (Acute) Atelectasis (Acute) Carpal tunnel syndrome of left wrist (Acute) Colon cancer screening (Acute) Early satiety (Acute) Cervical myofascial strain (Acute) Cervical spondylosis (Acute) Compression fracture of body of thoracic vertebra (Acute) Viral syndrome (Acute) Nicotine dependence, cigarettes, uncomplicated (Acute) Coronary artery calcification seen on CT scan (Acute) Precordial chest pain (Acute) Asthma-COPD overlap syndrome (Acute) Asthma (Acute) Pulmonary nodules (Acute) Personal history of nicotine dependence (Acute) HTN (hypertension) (Acute) Hyperlipidemia (Acute) Leukocytosis (Acute) Osteoporosis (Acute ~2001) GERD (gastroesophageal reflux disease) (Acute) Irritable bowel syndrome (Acute) Chronic idiopathic constipation (Acute) Tubular adenoma of colon (Acute ~2019) Abdominal bloating (Acute) Chronic abdominal pain (Acute) Lump in the abdomen (Acute) Balanitis (Acute) Penile discharge (Acute) Pain with urination (Acute) Abscess (Acute) Cellulitis and abscess of upper extremity (Acute) Olecranon bursitis of right elbow (Acute) Past Medical History Medical History Atelectasis Viral syndrome History of COVID-19 Leukocytosis Hyperlipidemia Personal history of nicotine dependence Back pain Arthritis Anxiety and depression Asthma History of kidney stones Chronic abdominal pain Tubular adenoma of colon (~2019) Asthma-COPD overlap syndrome Osteoporosis (~2001) Irritable bowel syndrome GERD (gastroesophageal reflux disease) COPD (chronic obstructive pulmonary disease) HTN (hypertension) Family History Family History Father No problems noted. Mother No problems noted. Son No problems noted. Daughter No problems noted. Family history of problems with anesthesia: No Surgical History Surgical History History of bilateral hip replacements History of colonoscopy with polypectomy (~2020) History of colonoscopy (~2005) History of surgery on right wrist (~2014) History of hip surgery (~2001) S/P extracorporeal shock wave therapy (~2013) History of hydrocelectomy Shoulder symptoms with history of shoulder arthroplasty History of Problems with Anesthesia: No Social History Social History Unable to assess alcohol history related to: Unknown Alcohol intake: unknown Patient Tobacco Use Status: Current everyday Tobacco user Tobacco use type: Cigarette Cigarette Packs Per Day: 0.5 Cigarettes Per Day: 7 Years Smoked: (onset 14yo, 1/2-3/4ppd x 37yrs, 23pyh) Second Hand Smoke Exposure: No Advance Directives Date on File: 05/30/21 service: No Current occupational status: disabled Current occupation: rt handed Meds Allergies Allergy/AdvReac Type Severity Reaction Status Date / Time ibuprofen [From Motrin] Allergy Intermediate Rash Verified 01/08/24 14:56 Home Medications ?Medication ?Instructions ?Recorded ?Confirmed ?Last Taken ?Type amlodipine 5 mg tablet 5 mg PO DAILY 05/28/21 09/15/22 Unknown History atorvastatin 10 mg tablet 10 mg PO BEDTIME 05/28/21 09/15/22 Unknown History metoprolol succinate 25 mg 25 mg PO DAILY 05/28/21 09/15/22 09/06/22 07:00 History tablet,extended release 24 hr clotrimazole 1 % topical cream appl topical 07/26/21 09/15/22 Unknown History nebulizers 06/14/22 09/04/22 Unknown History codeine 10 mg-guaifenesin 100 mg/5 10 ml PO Q6H PRN cough 01/11/23 Unknown History mL oral liquid ergocalciferol (vitamin D2) 1,250 1,250 mcg PO QWEEK 01/11/23 Unknown History mcg (50,000 unit) capsule insulin glargine 100 unit/mL (3 7 unit subcut BEDTIME 01/11/23 Unknown History mL) subcutaneous pen (Lantus Solostar U-100 Insulin) losartan 25 mg tablet 25 mg PO QAM 01/11/23 Unknown History metformin 1,000 mg tablet 1,000 mg PO 01/11/23 Unknown History montelukast 10 mg tablet 10 mg PO BEDTIME 01/11/23 Unknown History sitagliptin phosphate 25 mg tablet 25 mg PO QAM 01/11/23 Unknown History (Rupal) zafirlukast 20 mg tablet 20 mg PO BID 01/11/23 Unknown History alendronate 70 mg tablet 70 mg PO QWEEK 02/07/23 Unknown History Assessment and Plan Final Anesthetic Review Family History of Problems with Anesthesia: No History of Problems with Anesthesia: No
--- NOTE | 2024-01-21 13:54 | PC.NURSE ---
Upon intake, pt disclosed that he had not stopped his Eliquis or Januvia- last doses being 01/19. Discussed with anesthesia and Dr. Elizabeth who were at bedside with patient, decision made to have patient reschedule. Pt dressed and was instructed to go to patient registration for an outpatient xray per order of Dr. Elizabeth.
== END ==
LOC: HO.SSS 12:26
PROVIDERS: PCP Family Medicine; Visit Provider Hospitalist
DX: J41.0 Simple chronic bronchitis (principal); Z53.09 Procedure and treatment not carried out because of other contraindication

== ENCOUNTER 2024-01-21 14:04 | Outpatient (REF) | payer MEDICAID, SELFPAY | END 2024-01-21 14:05 | disposition home or self-care (01) | LOC: HO.XRAY 14:04 | PROVIDERS: PCP Family Medicine; Visit Provider Hospitalist | DX: R07.9 Chest pain, unspecified (principal) | CPT/HCPCS: 71046 ==

== ENCOUNTER 2024-01-22 13:45 | Outpatient (AMB) | payer MEDICAID, SELFPAY ==
--- NOTE | 2024-01-22 13:48 | MHC.OFFVIS ---
Vital Signs 01/22/24 13:58 Height 5 ft 8 in Weight 165 lb 9 oz BMI 25.2 Intake Visit Reasons: OV - bilateral hand pain, discuss sx Intake Note: Aldo is a 53 yo right hand dominant male who presents today for evaluation of bilateral hand pain, right hand is worse. 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 Patient states the numbness keeps him up at night. Denies finger locking. Has tried hand braces however patient does not think this helped. Reports minor surgery on his right hand about 15 years ago due to a fracture. EMG done 06/2023 showing left cubital and carpal tunnel syndrome. Patient would like to discuss surgery today for the RIGHT hand. General Education Professor Required: Yes General Education Professor Services: General Education Professor Present General Education Professor Name: ElizCHRISTIN/HU Allergies ibuprofen [From Motrin] Allergy (Intermediate, Verified 01/23/24 14:56) Rash HPI HPI OV - bilateral hand pain, discuss sx: Details: Aldo is a 53 year old right hand dominant Jordanian speaking man who presents with complaints of RIGHT hand numbness. His chief complaint today is of numbness of his right hand. Symptoms constant, and worse at night. 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 he also complains of pain in all his fingers. He denies having a NCS done for his right side. He says he had a bad experience with a NCS of his left and does not want to repeat the study. He says he has a Hx of a previous surgery on his right wrist in ~2008, but he does not think it is his wrist that is bothering him. He has known left carpal & cubital tunnel syndrome, and denies any prior treatments. He found limited relief from bracing. He has a Hx of Atelectasis, smoking, asthma-COPD, and is on Eliquis & Sitagliptin. He has a Hx of no-showing appointments & procedures. [facility] Medical History Atelectasis Viral syndrome History of COVID-19 Leukocytosis Hyperlipidemia Personal history of nicotine dependence Back pain Arthritis Anxiety and depression Asthma History of kidney stones Chronic abdominal pain Tubular adenoma of colon (~2019) Asthma-COPD overlap syndrome Osteoporosis (~2001) Irritable bowel syndrome GERD (gastroesophageal reflux disease) COPD (chronic obstructive pulmonary disease) HTN (hypertension) Surgical History History of bilateral hip replacements History of colonoscopy with polypectomy (~2020) History of colonoscopy (~2005) History of surgery on right wrist (~2014) History of hip surgery (~2001) S/P extracorporeal shock wave therapy (~2013) History of hydrocelectomy Shoulder symptoms with history of shoulder arthroplasty Family History Father No problems noted. Mother No problems noted. Son No problems noted. Daughter No problems noted. Social History Unable to assess alcohol history related to: Unknown Alcohol intake: unknown Patient Tobacco Use Status: Current everyday Tobacco user Tobacco use type: Cigarette Cigarette Packs Per Day: 0.5 Cigarettes Per Day: 7 Years Smoked: (onset 14yo, 1/2-3/4ppd x 37yrs, 23pyh) Second Hand Smoke Exposure: No Advance Directives Date on File: 05/30/21 service: No Current occupational status: disabled Current occupation: rt handed Review of Systems Const All systems reviewed & are unremarkable except as noted in HPI and below Physical Exam Vital Signs: BMI result Body Mass Index 25.2 Const General: cooperative, healthy appearing and no acute distress Orientation/consciousness: patient oriented x3 HEENT Head: Yes normocephalic and Yes atraumatic Eyes EOM: EOMs intact bilaterally Resp Effort & Inspection: normal respiratory effort and able to speak in complete sentences Cardio Jugular venous distension: no JVD Skin General skin exam: turgor normal Rashes: no rashes Neuro General: patient oriented x3 Extrem Other: Evaluation of Bilateral Upper Extremity: The patient is alert, oriented, and in no acute distress Neuro: Dense numbness in the median nerve distribution bilaterally. Decreased subjective sensation in the left small finger. Normal sensation in the right small finger No thenar or intrinsic wasting Weak APB muscle belly firing on the right, more normal on the left Good finger cross Good ADduction and abduction of the fingers bilaterally Vascular: Cap refill brisk ROM: He can make a fist and extend all his digits Skin: No lacerations or abrasions. General: No Ecchymosis. No Erythema or evidence of infection. Left Nerve Conduction Study: IMPRESSION: 1. Kzmh-ae-hewdntgi left median neuropathy across carpal tunnel. 2. 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 Sandra Morgan MD 07/10/2023 Please note, patient 1st reported that he only had the study done on the left side and did not want it done on the right side. Later in the visit he said that he had the nerve conduction study performed bilaterally. However, Dr. Morgan's report shows only left-sided EMG nerve conduction study. Patient refusing right-sided nerve conduction study. Psych Appearance: grossly normal Affect: normal affect Attitude: cooperative Quality Reporting (2019) Adult ([facility] ) Smoking risk assessment performed?: Yes Patient Tobacco Use Status: Current everyday Tobacco user Assessment & Plan Assessment & Plan (1) Numbness and tingling in right hand: Code(s): R20.0 - Anesthesia of skin; R20.2 - Paresthesia of skin Category: Medical (2) Right hand pain: Code(s): M79.641 - Pain in right hand Category: Medical (3) Carpal tunnel syndrome of left wrist: Code(s): G56.02 - Carpal tunnel syndrome, left upper limb Category: Medical (4) Cubital tunnel syndrome on left: Code(s): G56.22 - Lesion of ulnar nerve, left upper limb Category: Medical (5) Chronic anticoagulation: Comment: on Eliquis Code(s): Z79.01 - emt intermediate (current) use of anticoagulants Category: Medical (6) Nicotine dependence, cigarettes, uncomplicated: Comment: (onset 14yo, 1/2-3/4ppd x 37yrs, 23pyh) Code(s): F17.210 - Nicotine dependence, cigarettes, uncomplicated Category: Medical (7) Asthma-COPD overlap syndrome: Code(s): J44.9 - Chronic obstructive pulmonary disease, unspecified Category: Medical Plan Assessment & Plan: 1. Right carpal tunnel syndrome, based on history & PE With dense numbness No NCS completed, and patient refuses right-sided nerve conduction study This is his chief complaint today, and what he wants taken care of I educated him about this condition I discussed operative and non-operative treatment options The patient would like to proceed with surgery I explained the risks of his sensation not returning, but that surgery is important to maintain muscle function and preserve any sensation possible. He expressed understanding. I explained that it may take up to 9 months post-operatively for any sensation to return. The risks and benefits of operative treatment were discussed with the patient and the patient wishes to proceed with surgery. These risks include, but are not limited to risk of damage to blood vessels, nerves, tendons, infection, recurrence, incomplete relief of preoperative symptoms, persistent pain, possible need for further surgery and the risks associated with regional blocks and anesthesia. The plan is to take the patient to the operating room sometime in the next few weeks for the following procedures: 1. Right carpal tunnel release, under local All of the preoperative paperwork including the consent was reviewed today. All the patient's questions were answered. The patient understands that they will be contacted by our upholsterer outside soon to schedule this procedure He denies heart, kidney issues He is a Diabetic and says this is well-controlled. They will need an updated HgA1c that is <8.1% in order to proceed with surgery, and they expressed understanding He has a Hx of Atelectasis, smoking, asthma-COPD and is currently taking both Eliquis & Sitagliptin. 2. Left carpal tunnel syndrome, mild-moderate With dense numbness 3. Left cubital tunnel syndrome, moderate-severe Symptoms constant, worse at night Decreased subjective sensation today in clinic 4. Right hand numbness In the ulnar nerve distribution Symptoms intermittent and occasional No NCS completed, and patient does not want another Scribed for Jaqui Noel MD by Shad Mulligan, medical secretary, on 01/22/24 at 2:20 PM, EST. Coding Level of Care Code New Pt Level 4 (84901) Diagnoses Numbness and tingling in right hand R20.0; R20.2 Right hand pain M79.641 Carpal tunnel syndrome of left wrist G56.02 Cubital tunnel syndrome on left G56.22 Chronic anticoagulation Z79.01 Nicotine dependence, cigarettes, uncomplicated F17.210 Asthma-COPD overlap syndrome J44.9
[2024-01-22 13:58] VITALS: BMI 25.2
== END 2024-01-22 14:48 | disposition home or self-care (01) ==
LOC: HO.HOS 13:45
PROVIDERS: PCP Student in an Organized Health Care Education/Training Program; Visit Provider Orthopaedic Surgery
DX: R20.0 Anesthesia of skin (principal); R20.2 Paresthesia of skin; M79.641 Pain in right hand; G56.02 Carpal tunnel syndrome, left upper limb; G56.22 Lesion of ulnar nerve, left upper limb; Z79.01 Long term (current) use of anticoagulants; F17.210 Nicotine dependence, cigarettes, uncomplicated; J44.9 Chronic obstructive pulmonary disease, unspecified
CPT/HCPCS: 99204

== ENCOUNTER → 2024-01-22 13:45 | Outpatient (BNVA) | payer MEDICAID, SELFPAY | PROVIDERS: PCP Student in an Organized Health Care Education/Training Program; Visit Provider Orthopaedic Surgery | DX: G56.02 Carpal tunnel syndrome, left upper limb (principal); G56.22 Lesion of ulnar nerve, left upper limb; M79.641 Pain in right hand; R20.0 Anesthesia of skin; R20.2 Paresthesia of skin; Z79.01 Long term (current) use of anticoagulants | CPT/HCPCS: 99202 ==

== ENCOUNTER 2024-01-23 14:51 | Outpatient (AMB) | payer MEDICAID, SELFPAY ==
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
[2024-01-23 14:55] VITALS: BP 132/74; PULSE 92; BMI 26.2
== END 2024-01-23 15:13 | disposition home or self-care (01) ==
LOC: HO.ENCR 14:52
PROVIDERS: PCP Student in an Organized Health Care Education/Training Program; Visit Provider Internal Medicine Endocrinology, Diabetes & Metabolism
DX: M81.0 Age-related osteoporosis without current pathological fracture (principal)
CPT/HCPCS: 99213

== ENCOUNTER → 2024-01-23 14:51 | Outpatient (BNVA) | payer MEDICAID, SELFPAY | PROVIDERS: PCP Student in an Organized Health Care Education/Training Program; Visit Provider Internal Medicine Endocrinology, Diabetes & Metabolism | DX: M81.0 Age-related osteoporosis without current pathological fracture (principal) | CPT/HCPCS: 99212 ==

== ENCOUNTER 2024-02-01 11:34 | Outpatient (REF) | payer MEDICAID, SELFPAY ==
[2024-02-01 13:27] LABS: Albumin Level 3.7 g/dL (3.5-5.0); Anion Gap 12 (12-20); Blood Urea Nitrogen 14 mg/dL (9-16); Carbon Dioxide 25 mmol/L (22-29); Chloride 100 mmol/L (96-108); Estimated Glomerular Filt Rate > 60; Glucose Random 288 mg/dL (60-115); Sodium 133 mmol/L (135-145)
[2024-02-01 13:46] LABS: Estimated Average Glucose 174 mg/dL; Hemoglobin A1C 274.8263 umol/L; Hemoglobin A1c % 7.7 % (<6.0); Total Hemoglobin (HGBA1C) 4532.7445 umol/L
== END 2024-02-01 11:35 | disposition home or self-care (01) ==
LOC: HO.HHCL 11:34
PROVIDERS: Internal Medicine Endocrinology, Diabetes & Metabolism; Visit Provider Family Medicine
DX: E11.9 Type 2 diabetes mellitus without complications (principal); M81.0 Age-related osteoporosis without current pathological fracture
CPT/HCPCS: 36415; 80048; 82040; 83036

== ENCOUNTER 2024-02-04 09:25 | Day surgery (SDC) | payer MEDICAID, SELFPAY ==
[2024-02-04 10:55] VITALS: BMI 26.8
--- NOTE | 2024-02-04 11:28 | MHC.SHP ---
Pre-Procedural Eval Section A - 24 Hr Update-Section A only Date of Service: 02/04/24 The patient is an INPATIENT: No Changes since office visit: No Cold of Flu in the past 2 weeks, No New Medical Problems, No Changes in Medication and No Patient answered all questions The patient has been examined within 24 hours of the surgical procedure. The History & Physical has been completed within 30 days and I have reviewed it.: Yes Section B - Complete if H&P > 30 days Chief Complaint: Carpal tunnel syndrome, right upper limb Allergies: Allergies Allergy/AdvReac Type Severity Reaction Status Date / Time ibuprofen [From Motrin] Allergy Intermediate Rash Verified 01/23/24 14:56 Plan Diagnosis/Plan: Unchanged I have reviewed the history and physical and performed a pertinent physical examination on my patient. No changes have occurred unless specified. Time Spent With Patient Time: Total time managing care of this patient today ____ minutes.
--- NOTE | 2024-02-04 11:29 | W.PM.OPN ---
Operative Note Operative Note Date of Service: 02/04/24 Narrative: Preop diagnosis: 1. Right Carpal tunnel syndrome Postop diagnosis: same Procedure: 1. Right Carpal tunnel release Surgeon: Jaqui Noel MD [employer] Consultant: None Anesthesia: local block using 1% lidocaine with epinephrine Findings: Thickened transverse carpal ligament. EBL: Less than 5 mL Specimens: None Complications: None Disposition: Brought to recovery room in stable condition Plan: Follow-up for 10-14 days for wound check and suture removal Indications: The patient is 53 years old, with right carpal tunnel syndrome that has been unresponsive to nonoperative management. The risks and benefits of operative treatment including but not limited to risk of damage to blood vessels, nerves, tendons, infection, persistent pain, persistent symptoms, or possible need for additional surgery were discussed with the patient and the patient wishes to proceed with surgery. Procedure: Once consent was obtained a local block was performed using a combination of 1% lidocaine with epinephrine. The patient was then brought back to the operating suite and placed on the operative table in supine position. The right upper extremity was prepped and draped in a standard surgical fashion. Once assured that we had a good block, a 2.0 cm longitudinal incision was made centered over the carpal tunnel. The incision was made through the skin to the subcutaneous tissues using a #15 blade. Dissection was made down to the level of the transverse carpal ligament with care being taken to protect the palmar cutaneous nerve. Once the transverse carpal ligament was clearly visualized, a longitudinal incision was made in the transverse carpal ligament 1st using a #15 blade, then using tenotomy scissors under direct visualization. Care was taken to look for and protect the motor branch of the median nerve when seen in this area. Once satisfied with our carpal tunnel release the wound was copiously irrigated with normal saline and hemostasis was obtained with a brief period of local pressure. The skin edges were reapproximated with some 5.0 nylon suture material and a sterile dressing was applied. The patient appears to have tolerated the procedure well and with no complications. All digits were well vascularized at the conclusion of the case.
[2024-02-04 13:38] VITALS: BP 135/81; PULSE 86; RESP 20; O2SAT 94
== END 2024-02-04 13:39 | disposition home or self-care (01) ==
PROVIDERS: PCP Family Medicine; Visit Provider Orthopaedic Surgery
PROC: (CPT 64721; principal; 2024-02-04 13:40)
DX: G56.01 Carpal tunnel syndrome, right upper limb (principal); R20.0 Anesthesia of skin; R20.2 Paresthesia of skin; J44.9 Chronic obstructive pulmonary disease, unspecified; J98.11 Atelectasis; I10 Essential (primary) hypertension; E78.5 Hyperlipidemia, unspecified; B34.9 Viral infection, unspecified; M81.0 Age-related osteoporosis without current pathological fracture; Z79.01 Long term (current) use of anticoagulants; Z79.84 Long term (current) use of oral hypoglycemic drugs; F17.210 Nicotine dependence, cigarettes, uncomplicated
CPT/HCPCS: 64721; J0171; J2003

== ENCOUNTER → 2024-02-04 09:25 | Outpatient (BNV) | payer MEDICAID, SELFPAY | PROVIDERS: PCP Family Medicine; Visit Provider Orthopaedic Surgery | DX: G56.01 Carpal tunnel syndrome, right upper limb (principal) | CPT/HCPCS: 64721 ==

== ENCOUNTER 2024-02-19 14:02 | Outpatient (AMB) | payer MEDICAID, SELFPAY ==
--- NOTE | 2024-02-19 14:04 | A.OFFVIS_ITS ---
Vital Signs 02/19/24 14:10 Height 5 ft 6 in Weight 166 lb BMI 26.8 Handedness Right Intake Visit Reasons: PO RT CTR 02/04/24 AR Intake Note: Aldo is a 53 year old male who presents today for a post operative visit S/P right carpal tunnel release DOS: 01/22/2024 w/ Dr Noel. Patient reports he feels the surgery made his hand feel worse. He says he still has numbness and tingling. He is unable to sleep from pain. He says Tylenol does not offer relief. He applies hot and cold water for relief also but doesn't find improvement. He says his pain is in the palm of his hand. Unable to make a full closed fist. Safety Sealer Required: Yes Safety Sealer Language: Interior Design Assistant Name: [id number] Allergies ibuprofen [From Motrin] Allergy (Intermediate, Verified 02/19/24 14:09) Rash HPI HPI PO RT CTR 02/04/24 AR: Details: Patient is a 53-year-old male who presents for postoperative evaluation status post right carpal tunnel release, DOS 02/04/[address] Noel. Today, the patient reports that he is very dissatisfied with his procedure, and states that he feels that his hand is worse than it was prior to surgery. The patient states that he has pain to both the radial and ulnar aspects of the incision site, as well as in the palm of his hand. The patient also states that he is unable to make a closed fist at this time, and it was very painful for him to attempt to do so. Patient states that his numbness and tingling have continued after surgery, but of note the patient was experiencing dense numbness prior to surgery. The patient states that he would not like any further treatment or intervention at this time, and just wants to go home. No other acute complaints or concerns at this time. [facility]LY [facility] Medical History Atelectasis Viral syndrome History of COVID-19 Leukocytosis Hyperlipidemia Personal history of nicotine dependence Back pain Arthritis Anxiety and depression Asthma History of kidney stones Chronic abdominal pain Tubular adenoma of colon (~2019) Asthma-COPD overlap syndrome Osteoporosis (~2001) Irritable bowel syndrome GERD (gastroesophageal reflux disease) COPD (chronic obstructive pulmonary disease) HTN (hypertension) Surgical History History of bilateral hip replacements History of colonoscopy with polypectomy (~2020) History of colonoscopy (~2005) History of surgery on right wrist (~2014) History of hip surgery (~2001) S/P extracorporeal shock wave therapy (~2013) History of hydrocelectomy Shoulder symptoms with history of shoulder arthroplasty Family History Father No problems noted. Mother No problems noted. Son No problems noted. Daughter No problems noted. Social History Unable to assess alcohol history related to: Unknown Alcohol intake: unknown Patient Tobacco Use Status: Current everyday Tobacco user Tobacco use type: Cigarette Cigarette Packs Per Day: 0.5 Cigarettes Per Day: 7 Years Smoked: (onset 14yo, 1/2-3/4ppd x 37yrs, 23pyh) Second Hand Smoke Exposure: No Advance Directives Date on File: 05/30/21 service: No Current occupational status: disabled Current occupation: rt handed Review of Systems Const All systems reviewed & are unremarkable except as noted in HPI and below Physical Exam Vital Signs: BMI result Body Mass Index 26.8 Extrem Other: Neuro: Decreased sensation in the median nerve distribution of the right hand. Normal sensation to all other digits in the right hand today. No thenar or intrinsic wasting. Good APB muscle firing and good finger cross. Vascular: Capillary refill brisk. Pain: Patient reports tenderness to palpation both radial and ulnar to the incision site, consistent with pillar pain No tenderness to palpation directly over the incision site ROM: With encouragement, patient is able to get close to making a closed fist, but reports significant discomfort when doing so Patient is able to extend all digits of the right hand fully and without difficulty Skin: Well approximated and well healing incision site noted on the volar aspect of the patient's right wrist General: No ecchymosis. No erythema or evidence of infection. Quality Reporting (2019) Adult ([facility] 13805/10/68) Smoking risk assessment performed?: Yes Patient Tobacco Use Status: Current everyday Tobacco user Assessment & Plan Assessment & Plan (1) Right hand pain: Code(s): M79.641 - Pain in right hand Category: Medical (2) Carpal tunnel syndrome of right wrist: Code(s): G56.01 - Carpal tunnel syndrome, right upper limb Category: Medical Plan 1. Carpal tunnel syndrome of right wrist status post carpal tunnel release DOS 02/04/2024 2. Postoperative stiffness status post carpal tunnel release Patient appears to be recovering somewhat well postoperatively Patient is educated about the typical recovery course At this time, it was recommended to the patient that he go to occupational therapy for range of motion and strengthening of his right hand in the setting of postoperative stiffness, as well as pillar pain Patient is initially open to referral to occupational therapy However, as the appointment went on, the patient was adamant that he does not want any further treatment at this time, and that ?God will decide how much function and capacity I get out of my hand The patient states he would not like to return to our office either Patient can follow-up as needed with any acute concerns Orders: Orders OT Evaluation and Treatment 02/19/24 G56.01 - Carpal tunnel syndrome, right upper limb, M79.641 - Pain in right hand Coding Level of Care Code Global (76690) Diagnoses Right hand pain M79.641 Carpal tunnel syndrome of right wrist G56.01
[2024-02-19 14:10] VITALS: BMI 26.8
== END 2024-02-19 14:54 | disposition home or self-care (01) ==
PROVIDERS: PCP Student in an Organized Health Care Education/Training Program
DX: M79.641 Pain in right hand (principal); G56.01 Carpal tunnel syndrome, right upper limb
CPT/HCPCS: 99024

== ENCOUNTER → 2024-02-19 14:02 | Outpatient (BNVA) | payer MEDICAID, SELFPAY | PROVIDERS: PCP Student in an Organized Health Care Education/Training Program | DX: M79.641 Pain in right hand (principal); R20.2 Paresthesia of skin; R20.0 Anesthesia of skin; Z47.89 Encounter for other orthopedic aftercare; Z98.890 Other specified postprocedural states | CPT/HCPCS: 99212 ==

== ENCOUNTER 2024-02-29 14:02 | Emergency (ER) | payer MEDICAID, SELFPAY ==
--- NOTE | ~2024-02-29 | XR_ITS ---
EXAMINATION: XR CHEST CLINICAL INFORMATION: pain COMPARISON: Prior chest x-ray 01/21/2024 TECHNIQUE: 2 views of the chest were obtained. FINDINGS: Lungs and pleural spaces: There is a subtle rounded opacity overlying the right lower lung on the frontal projection only likely reflecting a nipple shadow. Lungs otherwise unremarkable. No effusions. Cardiomediastinal silhouette normal. Radiopaque density noted with overlying the mid-upper thoracic spine unchanged compatible with prior kyphoplasty procedure. XR/XR chest 2V IMPRESSION: 1. Nodular opacity overlying the right lower lung likely reflecting a nipple shadow. Recommend repeat PA view with nipple markers to confirm. 2. No acute disease. Electronically signed by: Janak Burnett MD 02/29/2024 03:29 PM BAL
--- NOTE | 2024-02-29 14:12 | ECG_ITS ---
Test Reason : chest pain Blood Pressure : / mmHG Vent. Rate : 087 BPM Atrial Rate : 087 BPM P-R Int : 136 ms QRS Dur : 068 ms QT Int : 328 ms P-R-T Axes : 014 047 017 degrees QTc Int : 394 ms Normal sinus rhythm Normal ECG When compared with ECG of 10-AUG-2023 17:39, No significant change was found Referred By: Nadir Espinal Electronically Signed By:CRISTOBAL ANDERSON MD
[2024-02-29 14:39] VITALS: BP 145/89; PULSE 92; RESP 16; TEMP 36.4; O2SAT 95; BMI 24.3
--- NOTE | 2024-02-29 14:39 | ED.GENADULT ---
HPI - General Adult General Stated complaint: CP Related Data Home Medications ?Medication ?Instructions ?Recorded ?Confirmed amlodipine 5 mg tablet 5 mg PO DAILY 05/28/21 09/15/22 atorvastatin 10 mg tablet 10 mg PO BEDTIME 05/28/21 09/15/22 metoprolol succinate 25 mg 25 mg PO DAILY 05/28/21 09/15/22 tablet,extended release 24 hr clotrimazole 1 % topical cream appl topical 07/26/21 09/15/22 nebulizers 06/14/22 09/04/22 codeine 10 mg-guaifenesin 100 mg/5 10 ml PO Q6H PRN cough 01/11/23 mL oral liquid ergocalciferol (vitamin D2) 1,250 1,250 mcg PO QWEEK 01/11/23 mcg (50,000 unit) capsule insulin glargine 100 unit/mL (3 7 unit subcut BEDTIME 01/11/23 mL) subcutaneous pen (Lantus Solostar U-100 Insulin) losartan 25 mg tablet 25 mg PO QAM 01/11/23 metformin 1,000 mg tablet 1,000 mg PO 01/11/23 montelukast 10 mg tablet 10 mg PO BEDTIME 01/11/23 sitagliptin phosphate 25 mg tablet 25 mg PO QAM 01/11/23 (Januvia) zafirlukast 20 mg tablet 20 mg PO BID 01/11/23 alendronate 70 mg tablet 70 mg PO QWEEK 02/07/23 Previous Rx's ?Medication ?Instructions ?Recorded nystatin 100,000 unit/gram topical 1 appl topical TID #15 grams 07/26/21 cream fluticasone furoate 200 1 inh inhalation DAILY 30 days #60 11/28/22 mcg-vilanterol 25 mcg/dose ea inhalation powder (Breo Ellipta) umeclidinium 62.5 mcg/actuation 1 inh inhalation DAILY 30 days #30 11/28/22 blister powder for inhalation ea (Incruse Ellipta) albuterol sulfate 90 mcg/actuation 2 puff PO Q6H PRN for dyspnea #18 01/09/23 aerosol inhaler (Ventolin HFA) ea ipratropium bromide 17 2 puff inhalation QID 30 days 01/09/23 mcg/actuation HFA aerosol inhaler #12.9 grams (Atrovent HFA) magnesium citrate 150 ml PO DAILY 2 days #300 mL 02/07/23 bisacodyl 5 mg tablet,delayed 15 mg (3 x 5 mg) PO BEDTIME 30 03/21/23 release (Dulcolax (bisacodyl)) days #120 tabs docusate sodium 100 mg capsule 100 mg PO .bid with food 30 days 03/21/23 (Colace) #60 caps linaclotide 290 mcg capsule 290 mcg PO QAM #30 caps 03/21/23 (Linzess) mxkaru-efmbfyxq-gbhmuwo 1 cap PO QID 30 days #120 caps 03/21/23 24,000-76,000-120,000 unit capsule,delayed rel (Creon) peg 3350-electrolytes 236 240 ml PO Q10M 1 day #4,000 mL 03/21/23 gram-22.74 gram-6.74 gram-5.86 gram solution (Golytely) simethicone 180 mg capsule 180 mg PO QID 30 days #120 caps 03/21/23 tiotropium bromide 18 mcg capsule 1 cap inhalation DAILY 30 days #30 06/14/23 with inhalation device (Spiriva inhalations with HandiHaler) apixaban 5 mg tablet (Eliquis) 5 mg PO BID #120 tabs 08/11/23 cefuroxime axetil 500 mg tablet 500 mg PO BID 7 days #14 tabs 08/11/23 ipratropium 20 mcg-albuterol 100 1 puff inhalation Q6H #4 grams 08/16/23 mcg/actuation mist for inhalation (Combivent Respimat) magnesium hydroxide 400 mg/5 mL 400 mg (5 mL) PO DAILY PRN 10/01/23 oral suspension (Dulcolax constipation #3,780 mL (magnesium hydroxide)) roflumilast 250 mcg tablet 250 mcg PO DAILY 30 days #30 tabs 10/09/23 (Daliresp) cholecalciferol (vitamin D3) 50 2,000 unit PO DAILY #30 tabs 10/22/23 mcg (2,000 unit) tablet hydrochlorothiazide 12.5 mg tablet 12.5 mg PO DAILY #90 tabs 10/22/23 teriparatide 20 mcg/dose (600 20 mcg (0.08 mL) subcut DAILY #2.4 10/25/23 mcg/2.4 mL) subcutaneous pen mL injector (Forteo) bupropion HCl 75 mg tablet 150 mg (2 x 75 mg) PO BID #120 tabs 10/31/23 famotidine 40 mg tablet 40 mg PO BEDTIME #90 tabs 11/26/23 omeprazole 40 mg capsule,delayed 40 mg PO DAILY #90 caps 12/10/23 release azithromycin 500 mg tablet 500 mg PO 3XW 28 days #12 tabs 01/08/24 baclofen 20 mg tablet 20 mg PO TID PRN muscle spasm 30 01/08/24 days #90 tabs prednisone 10 mg tablet 20 mg (2 x 10 mg) PO DAILY #60 tabs 01/29/24 hydrocodone 5 mg-acetaminophen 325 1 tab PO Q4-6H PRN pain #5 tabs 02/04/24 mg tablet Allergies Allergy/AdvReac Type Severity Reaction Status Date / Time ibuprofen [From Motrin] Allergy Intermediate Rash Verified 02/19/24 14:09 [facility] Past Medical History Medical History Atelectasis Viral syndrome History of COVID-19 Leukocytosis Hyperlipidemia Personal history of nicotine dependence Back pain Arthritis Anxiety and depression Asthma History of kidney stones Chronic abdominal pain Tubular adenoma of colon (~2019) Asthma-COPD overlap syndrome Osteoporosis (~2001) Irritable bowel syndrome GERD (gastroesophageal reflux disease) COPD (chronic obstructive pulmonary disease) HTN (hypertension) Surgical History History of bilateral hip replacements History of colonoscopy with polypectomy (~2020) History of colonoscopy (~2005) History of surgery on right wrist (~2014) History of hip surgery (~2001) S/P extracorporeal shock wave therapy (~2013) History of hydrocelectomy Shoulder symptoms with history of shoulder arthroplasty Family History Family History Father No problems noted. Mother No problems noted. Son No problems noted. Daughter No problems noted. Social History Social History Unable to assess alcohol history related to: Unknown Alcohol intake: unknown Patient Tobacco Use Status: Current everyday Tobacco user Tobacco use type: Cigarette Cigarette Packs Per Day: 0.5 Cigarettes Per Day: 7 Years Smoked: (onset 14yo, 1/2-3/4ppd x 35yrs, 23pyh) Second Hand Smoke Exposure: No Advance Directives Date on File: 05/30/21 service: No Current occupational status: disabled Current occupation: rt handed Course Course Course Narrative: RME, this is a rapid medical exam performed by [place] Espinal please refer to primary provider for complete H&P- 54-year-old male past medical history significant for coronary artery disease, COPD, hypertension, hyperlipidemia, GERD, IBS presents for evaluation of chest pain. Patient reports 5 days of chest pain that moves around. He has multiple risk factors for ACS plan for labs, EKG, chest x-ray Medical Decision Making Lab Data 02/29/24 14:34 02/29/24 14:34 Discharge Plan Discharge Prescriptions: No Action albuterol sulfate [Ventolin HFA] 90 mcg/actuation HFA aerosol inhaler 2 puff PO Q6H PRN (Reason: for dyspnea) Qty: 18 5RF Atrovent HFA 17 mcg/actuation HFA aerosol inhaler 2 puff inhalation QID 30 Days Qty: 12.9 11RF Combivent Respimat 20-100 mcg/actuation mist 1 puff inhalation Q6H Qty: 4 11RF roflumilast [Daliresp] 250 mcg tablet 250 mcg PO DAILY 30 Days Qty: 30 1RF teriparatide [Forteo] 20 mcg/dose (600mcg/2.4mL) pen injector 20 mcg subcut DAILY Qty: 2.4 11RF bupropion HCl 75 mg tablet 150 mg PO BID Qty: 120 6RF famotidine 40 mg tablet 40 mg PO BEDTIME Qty: 90 1RF omeprazole 40 mg capsule,delayed release(DR/EC) 40 mg PO DAILY Qty: 90 1RF prednisone 10 mg tablet 20 mg PO DAILY Qty: 60 2RF atorvastatin 10 mg tablet 10 mg PO BEDTIME amlodipine 5 mg tablet 5 mg PO DAILY metoprolol succinate 25 mg tablet extended release 24 hr 25 mg PO DAILY cefuroxime axetil 500 mg tablet 500 mg PO BID 7 Days Qty: 14 0RF Eliquis 5 mg tablet 5 mg PO BID Qty: 120 0RF Rx Instructions: Start after finishing starter package hydrocodone-acetaminophen 5-325 mg tablet 1 tab PO Q4-6H PRN (Reason: pain) Qty: 5 0RF Rx Instructions: Partial Fill upon patient request. clotrimazole 1 % cream topical nystatin 100,000 unit/gram cream 1 appl topical TID Qty: 15 0RF (DME) nebulizers Misc See Rx Instructions .Route Rx Instructions: As directed magnesium citrate Solution 150 ml PO DAILY 2 Days Qty: 300 0RF Incruse Ellipta 62.5 mcg/actuation blister with device 1 inh inhalation DAILY 30 Days Qty: 30 11RF fluticasone furoate-vilanterol [Breo Ellipta] 200-25 mcg/dose blister with device 1 inh inhalation DAILY 30 Days Qty: 60 11RF ergocalciferol (vitamin D2) 1,250 mcg (50,000 unit) capsule 1,250 mcg PO QWEEK Januvia 25 mg tablet 25 mg PO QAM codeine-guaifenesin 10-100 mg/5 mL liquid 10 ml PO Q6H PRN (Reason: cough) losartan 25 mg tablet 25 mg PO QAM insulin glargine [Lantus Solostar U-100 Insulin] 100 unit/mL (3 mL) insulin pen 7 unit subcut BEDTIME metformin 1,000 mg tablet 1,000 mg PO zafirlukast 20 mg tablet 20 mg PO BID Rx Instructions: must be taken on empty stomach, at least 1 hr before or 2 hrs after a meal/food montelukast 10 mg tablet 10 mg PO BEDTIME alendronate 70 mg tablet 70 mg PO QWEEK baclofen 20 mg tablet 20 mg PO TID PRN (Reason: muscle spasm) 30 Days Qty: 90 2RF azithromycin 500 mg tablet 500 mg PO 3XW 28 Days Qty: 12 6RF Rx Instructions: Sunday, Sunday, Sunday peg 3350-electrolytes [Golytely] 236-22.74-6.74 -5.86 gram recon soln 240 ml PO Q10M 1 Days Qty: 4000 0RF Rx Instructions: until fecal effluent is clear; do not exceed a total volume of 2,000 mL Linzess 290 mcg capsule 290 mcg PO QAM Qty: 30 6RF Creon 24,000-76,000 -120,000 unit capsule,delayed release(DR/EC) 1 cap PO QID 30 Days Qty: 120 6RF Rx Instructions: administer with meals and/or snacks simethicone 180 mg capsule 180 mg PO QID 30 Days Qty: 120 3RF Rx Instructions: after meals bisacodyl [Dulcolax (bisacodyl)] 5 mg tablet,delayed release (DR/EC) 15 mg PO BEDTIME 30 Days Qty: 120 6RF docusate sodium [Colace] 100 mg capsule 100 mg PO .bid with food 30 Days Qty: 60 6RF tiotropium bromide [Spiriva with HandiHaler] 18 mcg capsule, w/inhalation device 1 cap inhalation DAILY 30 Days Qty: 30 11RF Rx Instructions: puncture 1 cap using device; one dose = 2 inhalations magnesium hydroxide [Dulcolax (magnesium hydroxide)] 400 mg/5 mL suspension 400 mg PO DAILY PRN (Reason: constipation) Qty: 3780 1RF hydrochlorothiazide 12.5 mg tablet 12.5 mg PO DAILY Qty: 90 1RF cholecalciferol (vitamin D3) 50 mcg (2,000 unit) tablet 2,000 unit PO DAILY Qty: 30 5RF Print Language: Yi
[2024-02-29 14:40] LABS: Basophils Absolute Auto 0.1 X10*3/uL (0.0-0.2); Basophils Percent Auto 0.4 % (0-2); Eosinophils Percent Auto 0.1 % (0-4); Hematocrit 43.7 % (42.0-52.0); Imm Gran Abs Auto 0.15 X10*3/uL (0.00-0.03); Imm Gran Pct Auto 0.9 % (0.0-0.4); Lymphocytes Absolute Auto 1.6 X10*3/uL (1.2-4.9); Lymphocytes Percent Auto 9.8 % (20-40); MANUAL DIFF FLAG NO; Mean Corpuscular HGB Conc 34.3 g/dl (31.0-36.0); Mean Corpuscular Volume 90.3 fL (80.0-98.0); Mean Platelet Volume 8.1 fL (9.4-12.4); Monocytes Percent Auto 6.5 % (2-11); Neutrophils Percent Auto 82.3 % (45-73); Platelet Count 349 X10*3/uL (160-400); Red Blood Count 4.84 X10*6/uL (4.60-5.80); White Blood Count 15.8 X10*3/uL (4.8-10.8)
[2024-02-29 14:45] LABS: Prothrombin Time 11.5 SEC (10.9-12.4)
[2024-02-29 15:01] LABS: Anion Gap 11 (12-20); Aspartate Amino Transferase 20 U/L (5-37); Bilirubin Total 0.4 mg/dL (0.0-1.0); Blood Urea Nitrogen 15 mg/dL (9-16); Calcium 9.9 mg/dL (8.4-10.2); Carbon Dioxide 29 mmol/L (22-29); Chloride 103 mmol/L (96-108); Creatinine Clr Calc Pharmacy 99.7; Estimated Glomerular Filt Rate > 60; Glucose Random 199 mg/dL (60-115); Lipase 18 U/L (8-78); Potassium 4.2 mmol/L (3.3-5.1); Sodium 139 mmol/L (135-145); Total Protein 7.1 g/dL (6.5-8.0); Troponin-I High Sensitivity 4.2 ng/L (<3.5-35.0)
[2024-02-29 15:09] LABS: Alanine Aminotransferase 21 U/L (0-40); Alkaline Phosphatase 60 U/L (39-117)
[2024-02-29 15:19] LABS: Influenza A PCR NEGATIVE (Negative); Influenza B PCR NEGATIVE (Negative); Resp Syncy Virus RNA Qual PCR NEGATIVE (Negative); SARS COV2 PCR INHOUSE NEGATIVE (Negative)
== END 2024-02-29 21:51 | disposition left against medical advice (07) ==
PROVIDERS: Physician Assistant; Emergency Provider Internal Medicine; PCP Student in an Organized Health Care Education/Training Program
DX: R07.9 Chest pain, unspecified (principal); I10 Essential (primary) hypertension; J44.9 Chronic obstructive pulmonary disease, unspecified; K21.9 Gastro-esophageal reflux disease without esophagitis; E78.5 Hyperlipidemia, unspecified; Z03.818 Encounter for observation for suspected exposure to other biological agents ruled out; Z79.899 Other long term (current) drug therapy
CPT/HCPCS: 0241U; 36415; 71046; 80053; 83690; 84484; 85025; 85610; 93005; 99283

== ENCOUNTER → 2024-02-29 14:12 | Outpatient (BNV) | payer MEDICAID, SELFPAY | PROVIDERS: Emergency Provider Internal Medicine; PCP Student in an Organized Health Care Education/Training Program; Visit Provider Internal Medicine Cardiovascular Disease | DX: R07.9 Chest pain, unspecified (principal) | CPT/HCPCS: 93010 ==

== ENCOUNTER 2024-03-04 17:25 | Outpatient (REF) | payer MEDICAID, SELFPAY ==
[2024-03-04 19:06] LABS: Creatinine, 24Hr Urine 1.2 G/Day (1.0-2.0); Total Volume 24 Hour Urine 2250 mL
[2024-03-05 17:54] LABS: Calcium, 24 Hr Urine 405 mg/24 h; Calcium/Creatinine Ratio 316 mg/g creat (30-210); Creatinine 24Hr Urine 1.28 g/24 h (0.50-2.15)
== END 2024-03-04 17:26 | disposition home or self-care (01) ==
LOC: HO.LNP 17:25
PROVIDERS: Visit Provider Internal Medicine Endocrinology, Diabetes & Metabolism
DX: R82.994 Hypercalciuria (principal); M81.0 Age-related osteoporosis without current pathological fracture
CPT/HCPCS: 82340; 82570

== ENCOUNTER 2024-03-07 14:32 | Outpatient (AMB) | payer MEDICAID, SELFPAY ==
--- NOTE | 2024-03-07 14:40 | A.OFFVIS_ITS ---
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 The patient continues to have significant shortness of breath and wheezing. Moderate severity. But, overall better. he has been on chronic steroids. He has not been able to go below 20 mg. he does have productive sputum, which is whitish in color. Associated with shortness of breath. He has gained some weight due to the prednisone. At this point the patient will be a good candidate for Daliresp. We also talked about smoking cessation and the importance to quit. He has been on Chantix and appears to be working. he is going to continue on Chantix at this time. 08/28/2022 the patient is here for pulmonary follow-up visit. Overall he is doing a little better from a respiratory status. However, patient developed some compression fractures. He has significant osteoporosis due to his chronic prednisone use. We tried decreasing his prednisone dose however, the patient has frequent exacerbations. He is also on chronic prednisone likely prednisone dependent. We did try Xolair but the patient did not want to take the sections. We can have him start Daliresp to see if this helps decrease the need for prednisone. However, really what is going to be most important for him to quit smoking and the patient is not willing to quit altogether. He did cut down which is good. I did provide him with 1 mg prednisone tablets. He can decrease by 1 mg every 1 week to try to come down to at least 10 mg daily. At that point will try to get him a little lower if possible although likely will require chronic dose. He is going to continue his respiratory therapy. Will try to sim plify his regimen by placing him on Trelegy. He needs to be careful not to over medicate with inhalers. 10/20/2022 the patient is here for pulmonary follow-up visit. He is complaining of significant chest congestion. Difficult to expectorate. Moderate severity. Unfortunately when he tries to cough he started developing significant abdominal discomfort. Then, this results in significant discomfort and pain and sometimes he can even sleep. Sometimes he has to cry. The patient is uncomfortable overall. Unfortunately he continues to smoke cigarettes. He has been trying to cut down although is still very difficult for him. Otherwise been using nebulized therapy. We did review his imaging studies. His last CT scan was back in March demonstrating evidence of bronchitis and some bronchiectatic changes at the bases. All some some mosaic pattern. We did talk about considering bronchoscopy to further address his underlying chronic bronchitis and assess for any smoldering infections. In addition to this the patient does complaint of significant abdominal distention. He does have diabetes and is at risk for gastroparesis. Therefore we will increase his pulmonary toilet he age nt to 500 mg 3 times a week. 03/02/2013 The patient is here for a pulmonary follow-up visit. Still complaining of chest tightness and wheezing. Has been using the combivent too much.. He has been on the azithromycin 3 times a week. She did not get the Trelegy inhaler as it was not covered. Therefore will had sent for Breo and Incruse that he can take daily. But he was only using the Incruse. Unfortunately does smoke cigarettes. He did have some success with the chantix, but, them stopped it due to adverse side effects including headache. He will go ahaed and retry it at a lower dose. Otherwise if it is not better, he will start Wellbutrim.He has been struggling to quit. We had talked about a bronchoscopy but the patient failed to show up. This point will hold off any bronchoscopy set this time. The patient needs to do a better job with adherence. He still continues to be on prednisone. In the meantime, he did tell me he is having some SSCP with exertion. No CP at this time. Has not had a recent cardiac workup. Will follow-up in 3-4 months. 06/14/2023 the patient is here for pulmonary follow-up visit. He continues to complain of the cough which is productive in nature. Moderate severity. Associated with left-sided pleuritic pain. Not sure where the pain is coming from. We did review his CTA that he had back in February demonstrating no pleural-based disease or anything to explain the left-sided discomfort. He does have significant bronchitis with mucus plugging in does have an area of atelectasis in the lingular area. We had scheduled him for bronchoscopy a couple times in the past but he would no-show to the procedures. Therefore we no longer schedule him for bronchoscopy. Since the patient is having worsening symptoms will give him 1 more opportunity to have the bronchoscopy. The patient also should continue with the lung cancer screening program. Right now he has not due till the winter. regards his medications the patient had been on Breo and Incruse. He feels the Spiriva had been working better than Incruse. Therefore we can switch him over this time. Still, explained to him that the inhalers not going to work if he continues to smoke cigarettes. He is also having significant back pain. Likely due to his significant bone disease from his chronic prednisone use. He is going to try to cut down some. 10/01/2023 the patient is here for a pulmonary follow-up visit. The patient overall has been okay. His cough is still congested in nature. Still complaining of left-sided flank discomfort. Indeed he has had a full workup including a CTA and also had a CT scan of the abdomen. No clear etiology for the discomfort except that he does have some atelectasis at the left base which could be contributing to some pleuritic discomfort. In addition to that he does have some vertebral disease and he had been evaluated by spine and also pain specialist. Although, no significant therapeutic options available. The patient did however have significant constipation. This is likely causing significant distention of his abdomen and therefore limiting his respiratory capacity. Therefore he will try to aggressively try to clear his bowels. In the meantime the patient will call if he has no better we can consider bronchoscopy for therapeutic cleaning of the airways evaluated the left base specially where he has the atelectasis to make sure that is no significant mucus plugging or obstructive mass that could be causing the findings on the CT scan. Patient still smoking. He knows he needs to quit altogether. He is still working on that and will slowly cut down. 01/08/2024 the patient is here for a pulmonary follow-up visit. He continues to struggle with his breathing. Has a productive cough with difficult the expectorating. The patient has been on multiple medications without any significant improvement. Patient understands that he is not going to get better until quit smoking. This has been a big struggle for him. He also continues on chronic steroids and he does have significant osteoporosis already. He has other issues going on as well. We had talked about a bronchoscopy with then he failed to show for the appointment. Will go ahead and give him another opportunity to schedule a bronchoscopy for both diagnostic and therapeutic purposes. In the meantime I did give him prescription for Daliresp during the last visit and did take it because was not sure what it was. I again explained to him and educated him about all the medications that he is taken from a pulmonary standpoint. 03/07/2024 the patient is here for a pulmonary follow-up visit. Overall he is doing okay. Still complaining of shortness of breath and also chest discomfort. Although complaint as well. He is still smoking. He is trying to cut down. He is concerned about his health. He is concerned about his chest pain. He does have a CT scan back in July demonstrating bilateral rib fractures that have healed and also compression fractures. Therefore he understands he has significant musculoskeletal discomfort from that. The patient has been using 10 mg of prednisone. He has been able to cut down. He also continues with respiratory therapy. He is concerned about his heart. Will go ahead and refer him to Cardiology in order for him to have a cardiac evaluation. [facility] Medical History Atelectasis Viral syndrome History of COVID-19 Leukocytosis Hyperlipidemia Personal history of nicotine dependence Back pain Arthritis Anxiety and depression Asthma History of kidney stones Chronic abdominal pain Tubular adenoma of colon (~2019) Asthma-COPD overlap syndrome Osteoporosis (~2001) Irritable bowel syndrome GERD (gastroesophageal reflux disease) COPD (chronic obstructive pulmonary disease) HTN (hypertension) Surgical History History of bilateral hip replacements History of colonoscopy with polypectomy (~2020) History of colonoscopy (~2005) History of surgery on right wrist (~2014) History of hip surgery (~2001) S/P extracorporeal shock wave therapy (~2013) History of hydrocelectomy Shoulder symptoms with history of shoulder arthroplasty Family History Father No problems noted. Mother No problems noted. Son No problems noted. Daughter No problems noted. Social History Unable to assess alcohol history related to: Unknown Alcohol intake: unknown Patient Tobacco Use Status: Current everyday Tobacco user Tobacco use type: Cigarette Cigarette Packs Per Day: 0.5 Cigarettes Per Day: 7 Years Smoked: (onset 14yo, 1/2-3/4ppd x 37yrs, 23pyh) Second Hand Smoke Exposure: No Advance Directives Date on File: 05/30/21 service: No Current occupational status: disabled Current occupation: rt handed Review of Systems Const Denies chills, Denies difficulty sleeping, Reports fatigue, Denies fever(s) and Denies night sweats ENT Denies change in voice, Denies lip swelling, Denies mouth pain, Reports nasal congestion, Reports nasal discharge and Denies tongue swelling Card Reports leg edema and Reports dyspnea on exertion Resp Reports chest congestion, Reports cough, Denies hemoptysis, Reports dyspnea on exertion and Reports wheezing GI Reports abdominal pain, Reports bloating and Reports constipation Musc Reports as per HPI and Reports back pain Neuro Denies Neuro-related abnormal movements Psych Denies no additional complaints Endo Reports fatigue Jamie/Lymph Denies easy bleeding and Denies lymphadenopathy Aller/Immun Denies lip swelling, Denies tongue swelling and Reports wheezing Physical Exam Vital Signs: Last Vital Signs Pulse 93 03/07/24 14:41 BP 152/80 H 03/07/24 14:41 Pulse Ox 95 03/07/24 14:41 Oxygen Delivery Method Room Air 03/07/24 14:41 BMI result Body Mass Index 25.6 Const General: alert and in distress mild and respiratory Neck Neck: Yes normal visual inspection, Yes full ROM and Yes no lymphadenopathy Chest Chest palpation & inspection: normal inspection of the chest Resp Effort & Inspection: prolonged expiratory phase Auscultation: no crackles, no wheezes and diminished lung sounds Cardio Rate: regular rate Rhythm: regular rhythm Heart sounds: S1 normal heart sound present and S2 normal heart sound present GI Inspection: Yes distended Palpation (GI): nontender Skin General skin exam: rashes and/or lesions noted Quality Reporting (2019) Adult ([facility] 138/05/10/68) Smoking risk assessment performed?: Yes Patient Tobacco Use Status: Current everyday Tobacco user Assessment & Plan Assessment & Plan (1) COPD (chronic obstructive pulmonary disease): Code(s): J44.9 - Chronic obstructive pulmonary disease, unspecified Category: Medical Qualifiers: COPD type: COPD with acute exacerbation Qualified Code(s): J44.1 - Chronic obstructive pulmonary disease with (acute) exacerbation (2) Tobacco dependence: Code(s): F17.200 - Nicotine dependence, unspecified, uncomplicated Category: Medical (3) Atelectasis: Code(s): J98.11 - Atelectasis Category: Medical (4) Chest pain: Code(s): R07.9 - Chest pain, unspecified Category: Medical Qualifiers: Chest pain type: unspecified Qualified Code(s): R07.9 - Chest pain, unspecified Plan continue Accolate 20mg BID Spiriva handihaler continue Breo continue Combivent continue Azithromycin 500mg MWF LDCT program short-acting beta agonist as needed stopped Gabapentin at night Daliresp 250mcg prednisone 10mg baseline, will cut down cardiology referral follow-up 3-4 months Orders: Referrals Cardiology Referral R07.9 - Chest pain, unspecified Coding Level of Care Code Est Pt Level 4 (78663) Complex EM visit Add On G2211 Diagnoses Chronic obstructive pulmonary disease with acute exacerbation J44.1 COPD type: COPD with acute exacerbation Tobacco dependence F17.200 Atelectasis J98.11 Chest pain, unspecified type R07.9 Chest pain type: unspecified Time Spent (min) 17
[2024-03-07 14:41] VITALS: BP 152/80; PULSE 93; O2SAT 95; BMI 25.6
== END 2024-03-07 15:12 | disposition home or self-care (01) ==
PROVIDERS: PCP Student in an Organized Health Care Education/Training Program; Visit Provider Hospitalist
DX: J44.1 Chronic obstructive pulmonary disease with (acute) exacerbation (principal); F17.200 Nicotine dependence, unspecified, uncomplicated; J98.11 Atelectasis; R07.9 Chest pain, unspecified
CPT/HCPCS: 99214

== ENCOUNTER → 2024-03-07 14:32 | Outpatient (BNVA) | payer MEDICAID, SELFPAY | PROVIDERS: PCP Student in an Organized Health Care Education/Training Program; Visit Provider Hospitalist | DX: J44.1 Chronic obstructive pulmonary disease with (acute) exacerbation (principal); J98.11 Atelectasis; R07.9 Chest pain, unspecified; F17.210 Nicotine dependence, cigarettes, uncomplicated; Z79.52 Long term (current) use of systemic steroids | CPT/HCPCS: 99212 ==

== ENCOUNTER 2024-03-25 15:03 | Outpatient (AMB) | payer MEDICAID, SELFPAY ==
[2024-03-25 15:21] VITALS: BP 130/74; PULSE 84; BMI 26.6
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
== END 2024-03-25 15:54 | disposition home or self-care (01) ==
PROVIDERS: PCP Student in an Organized Health Care Education/Training Program; Visit Provider Internal Medicine Endocrinology, Diabetes & Metabolism
DX: M81.0 Age-related osteoporosis without current pathological fracture (principal)
CPT/HCPCS: 99213

== ENCOUNTER → 2024-03-25 15:03 | Outpatient (BNVA) | payer MEDICAID, SELFPAY | PROVIDERS: PCP Student in an Organized Health Care Education/Training Program; Visit Provider Internal Medicine Endocrinology, Diabetes & Metabolism | DX: M81.0 Age-related osteoporosis without current pathological fracture (principal) | CPT/HCPCS: 99212 ==

== ENCOUNTER 2024-05-01 18:24 | Emergency (ER) | payer MEDICAID, SELFPAY | END 2024-05-01 19:40 | disposition left against medical advice (07) | PROVIDERS: Emergency Provider Emergency Medicine; PCP Family Medicine | DX: R51.9 Headache, unspecified (principal) ==

== ENCOUNTER 2024-05-30 14:07 | Outpatient (AMB) | payer MEDICAID, SELFPAY ==
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
[2024-05-30 14:10] VITALS: BP 118/70; PULSE 89; O2SAT 92; BMI 24.3
--- OUTSIDE RECORDS SUMMARY | 2024-05-30 15:47 | XMS_ITS | Encounter Summary ---
Author Organization [employer] Address [address] [place] [address] Care Team Providers Care Manager Product Marketing Name Role Phone Amna Richards DO Primary Care Provider + [phone] Reason for Visit * Reason Comments [facility] outreach Encounter Details Date Type Department Care Team (Latest Contact Info) Description 05/09/2024 Patient Outreach [facility] [address] [place] [address] Amna Richards DO [address] [place] [address] [facility]) Social History Tobacco Use Types Packs/Day Years Used Date Smoking Tobacco: Every Day Cigarettes Passive Smoke Exposure: Current Smokeless Tobacco: Never Comments:Smoked since 15 y o f age until now,smoked 2PQT a day now 6 to 7 cigarettes a day x last 3 months --PQT nilay is 72 Alcohol Use Standard Drinks/Week Comments Not Currently 0 (1 standard drink = 0.6 oz pure alcohol) hx of heavy alchol use -stopped 10 y ago Depression Answer Date Recorded Patient Health Questionnaire-9 Score 11 09/03/2023 Patient Health Questionnaire-9 Score 11 09/03/2023 Last PHQ-9: Questionnaire Data Not on file 0 09/03/2023 Housing Stability Answer Date Recorded What is your housing situation today? I have sandra granados 08/06/[address] you li ve. Do you have problems with any of the following? None of the above 08/06/2023 Food Insecurity Answer Date Recorded Within the past 12 months, y ou worried that your food would run out before you got money to buy more: Never True 08/06/2023 Within the past 12 months,th e food you bought just didn't last and you didn't have enough money to get more: Never True Transportation Answer Date Recorded In the past 12 months, has l ack of transportation kept you from medical appts, meetings, work or from getting things needed for daily living? No 08/06/2023 Utilities Answer Date Recorded In the past 12 months, has t he [employer], gas, oil or water company threatened to shut off services in your home? No 08/06/2023 Depression Answer Date Recorded Patient Health Questionnaire-2 Score 4 09/03/2023 Sex and Gender Information Value Date Recorded Sex Assigned at Male 01/16/2022 10:16 AM EDT Legal Sex Male 10:16 AM EDT Gender Identity Male 01/16/2022 10:16 AM EDT Sexual Orientation Straight 01/16/2022 10 :16 AM EDT documented as of this encounter Progress Notes * Ginette Banda - 05/09/2024 1:25 PM EST CHW Ginette Banda placed outbound call to [facility] for discharge coordination as patient was admitted on 05/01/24. CHW was connect to patient's Geriatric Physician he was discharged on 05/07/24. documented in this encounter Plan of Treatment Upcoming Encounters Date Type Department Care Team (Late st Contact Info) Description 06/02/2024 9:45 AM EDT Office Visit [facility] [address] [place] [address] Amna Richards DO [address] [place] [address] documented as of this encounter Visit Diagnoses Not on filedocumented in this encounter Additional Health Concerns Assessment Noted Time PHQ-9 Depression Total Score: 11 024 1:53 PM EDT documented as of this encounter Care Teams Manager Product Marketing Relationship Specialty Start Date End Date Amna Richards DO [address] [place] [address] PCP - General Family Medicine 10/12/23 [facility] 05/08/24 documented as of this encounter
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
--- OUTSIDE RECORDS SUMMARY | 2024-05-30 15:47 | XMS_ITS | Encounter Summary ---
Author Organization [employer] Address [address] [place] [address] 7t [place] [address] Care Team Providers Care Wet Sander Name Role Phone Amna Richards DO Primary Care Provider + [phone] Amna Richards DO Primary Care Provider [phone] Candace Quiñones MD Primary Care Pro vider Amna Richards DO Primary Care Provider + [phone] Reason for Visit * Reason Onset Date Comments Med Refill 06/15/2022 Encounter Details Date Type Department Care Team (Late st Contact Info) Description 06/15/2022 Telephone [facility] MEDICINE [address] [place], [place] [phone] Amna Richrads DO [address] [place], [place] [phone] Med Refill Social History Tobacco Use Types Packs/Day Years Used Date Smoking Tobacco: Former Cigarettes Passive Smoke Exposure: Current Smokeless Tobacco: Never Alcohol Use Standard Drinks/Week Comments Never 0 (1 standard drink = 0.6 oz pur e alcohol) Sex and Gender Information Value Date Recorded Sex Assigned at Male 01/16/2022 10:16 AM EDT Legal Sex Male 10:16 AM EDT Gender Identity Male 01/16/2022 10:16 AM EDT Sexual Orientation Straight 01/16/2022 10 :16 AM EDT COVID-19 Exposure Response Date Recorded In the last 10 days, have yo u been in contact with someone who was confirmed or suspected to have Coronavirus/COVID-19? No / Unsure 06/06/2022 10:19 AM EDT documented as of this encounter Miscellaneous Notes * Telephone Encounter - Marni Henning - 06/15/2022 10:52 AM EDT Tc from pt requesting med refill for medication traMADol (Ultram) 50 MG tablet . States if it can be sent to [facility] pharmacy due to cvc not having them in stock at this time . Pt also informed if tablets can be the oval not confed[place] salish . documented in this encounter Plan of Treatment Upcoming Encounters Date Type Department Care Team (Late st Contact Info) Description 06/02/2024 9:45 AM EDT Office Visit [facility] MEDICINE [address] [place] [address] Amna Richards DO [address] [place] [address] documented as of this encounter Visit Diagnoses Not on filedocumented in this encounter Additional Health Concerns Assessment Noted Time PHQ-9 Depression Total Score: 11 023 12:04 PM EST documented as of this encounter Care Teams Wet Sander Relationship Specialty Start Date End Date Amna Richards DO [address] [place] [address] PCP - General Family Medicine 03/19/18 07/20/22 Amna Richards DO [address] [place] [address] PCP - General Family Medicine 07/21/22 07/23/22 Candace Quiñones MD [address] [place] [address] PCP - General Internal Medicine 07/24/22 10/11/23 Amna Richards DO [address] [place] [address] PCP - General Family Medicine 10/12/23 [facility] 05/08/24 documented as of this encounter
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
--- OUTSIDE RECORDS SUMMARY | 2024-05-30 15:47 | XMS_ITS | Encounter Summary ---
Author Organization [employer] Address [address] [facility] 7t [place] [address] Care Team Providers Care Analytics Leader Name Role Phone Amna Richards DO Primary Care Provider + [phone] Reason for Visit * Reason Comments Med Refill Encounter Details Date Type Department Care Team ([facility] st Contact Info) Description 05/07/2024 Refill [facility] MEDICINE [address] [place], [place] [phone] Amna Richards DO [address] [place], [place] [phone] Hypertension, unspecified type Social History Tobacco Use Types Packs/Day Years [...] AM EDT documented as of this encounter Plan of Treatment Upcoming Encounters Date Type Department Care Team (Late st Contact Info) Description 06/02/2024 9:45 AM EDT Office Visit [facility] MEDICINE [address] [place] [address] Amna Richards DO [address] [place] [address] documented as of this encounter Visit Diagnoses Diagnosis Hypertension, unspecified type documented in this encounter Additional Health Concerns Assessment Noted Time PHQ-9 Depression Total Score: 11 024 1:53 PM EDT documented as of this encounter Care Teams Analytics Leader Relationship Specialty Start Date End Date Amna Richards DO [address] [place] [address] PCP - General Family Medicine 10/12/23 documented as of this encounter
--- OUTSIDE RECORDS SUMMARY | 2024-05-30 15:47 | XMS_ITS | Encounter Summary ---
Author Organization [employer] Address [address] [facility] 7t [place] [address] Care Team Providers Care Financial Retirement Plan Specialist Name Role Phone mAna Richards DO Primary Care Provider + [phone] Reason for Visit * Reason Comments [facility]ination [facility] call outreach Encounter Details Date Type Department Care Team (Latest Contact Info) Description 05/07/2024 Patient Outreach [facility] MEDICINE [address] [place] [address] Amna Richards DO [address] [place] [address] [facility] outreach ) Social History Tobacco Use Types Packs/Day Years [...] the past 12 months, has t he [employer], gas, oil or water company threatened to [...] encounter Progress Notes * Ginette Banda - 05/07/2024 10:01 AM EST CHW Ginette Banda placed outbound call to [facility] for discharge coordination as patient was admitted on 05/02/24. CHW was connect to patient's Calibration Checker , CHW requested call back at [phone]. Patient's name, and confirmed. CHW to follow up within the next 2 days. documented in this encounter Plan of Treatment Upcoming Encounters Date Type Department Care Team (Late st Contact Info) Description 06/02/2024 9:45 AM EDT Office Visit [facility] MEDICINE [address] [place] [address] Amna Richards DO [address] [place] [address] documented as of this encounter Visit Diagnoses Not on filedocumented in this encounter Additional Health Concerns Assessment Noted Time PHQ-9 Depression Total Score: 11 024 1:53 PM EDT documented as of this encounter Care Teams Financial Retirement Plan Specialist Relationship Specialty Start Date End Date Amna Richards DO [address] [place] [address] PCP - General Family Medicine 10/12/23 documented as of this encounter
--- OUTSIDE RECORDS SUMMARY | 2024-05-30 15:47 | XMS_ITS | Encounter Summary ---
Author Organization [employer] Address [address] [facility] 7t [place] [address] Care Team Providers Care Egg Tester Name Role Phone Amna Richards DO Primary Care Provider + [phone] Reason for Visit * Reason Onset Date Comments Medication Question 05/09/2024 Encounter Details Date Type Department Care Team ([facility] st Contact Info) Description 05/09/2024 Refill [facility] MEDICINE [address] [place], [place] [phone] Amna Richards DO [address] [place], [place] [phone] Social History Tobacco Use Types Packs/Day Years [...] encounter Miscellaneous Notes * Telephone Encounter - Veronica Goetz RN - 05/09/2024 10:46 AM EST TC returned to [facility] [phone] who is requesting a med refill on diclofenac gel. RN will pend to covering provider. [facility] also reports the patient has amitriptyline and tramadol which have a medication interaction. [facility] needs approval to give both to the patient d/t interaction. RN advised A, RN would discuss with covering provider and return call to [facility]. RN called pharmacy who reports medication interaction between Amitriptyline and tramadol is a Level2 interaction due to increased serotonin syndrome, increased respiratory depression and potential hypotension. Please review and advise if okay to administer both medications. * Telephone Encounter - Antonio Yoo - 05/09/2024 8:53 AM EST Tc from [facility] with [facility] requesting a call back to Discuss Medication Voltaren and Amytryptiline and Tramadol with Nurse or PCP. Contact [facility] at [phone] documented in this encounter Plan of Treatment Upcoming Encounters Date Type Department Care Team (Late st Contact Info) Description 06/02/2024 9:45 AM EDT Office Visit [facility] MED[facility]INE [address] [place] [address] Amna Richards DO [address] [place] [address] documented as of this encounter Visit Diagnoses Not on filedocumented in this encounter Additional Health Concerns Assessment Noted Time PHQ-9 Depression Total Score: 11 024 1:53 PM EDT documented as of this encounter Care Teams Egg Tester Relationship Specialty Start Date End Date Amna Richards DO [address] [place] [address] PCP - General Family Medicine 10/12/23 [facility] 05/08/24 documented as of this encounter
--- OUTSIDE RECORDS SUMMARY | 2024-05-30 15:47 | XMS_ITS | Encounter Summary ---
Author Organization [employer] Address [address] [facility] 7t [place] [address] Care Team Providers Care Health Information Internship Name Role Phone SusieAmna Primary Care Provider + [phone] Encounter Details Date Type Department Care Team (Latest Contact Info) Description 05/14/2024 Travel Social History Tobacco Use Types Packs/Day Years [...] Description 06/02/2024 9:45 AM EDT Office Visit [facility] MEDICINE [address] [place] [address] Amna Richards DO [address] [place] [address] documented as of this encounter Visit Diagnoses Not on filedocumented in this encounter Additional Health Concerns Assessment Noted Time PHQ-9 Depression Total Score: 11 024 1:53 PM EDT documented as of this encounter Care Teams Health Information Internship Relationship Specialty Start Date End Date Amna Richards DO [address] [place] [address] PCP - General Family Medicine 10/12/23 [facility] 05/08/24 documented as of this encounter
--- OUTSIDE RECORDS SUMMARY | 2024-05-30 15:47 | XMS_ITS | Encounter Summary ---
Author Organization [employer] Address [address] [facility] 7t [place] [address] Care Team Providers Care Asthma Educator Name Role Phone Amna Richards DO Primary Care Provider + [phone] Reason for Visit * Reason Onset Date Comments FYI 05/15/2024 Encounter Details Date Type Department Care Team ([facility] st Contact Info) Description 05/15/2024 Telephone [facility] MEDICINE [address] [place], [place] [phone] Amna Richrads DO [address] [place] [address] FYI Social History Tobacco Use Types Packs/Day Years [...] Recorded Patient Health Questionnaire-2 Score 4 09/03/2023 Internet Access Answer Date Recorded Internet Access Q1 Yes 05/16/2024 Internet Access Q2 Not on file 05/16/2024 Sex and Gender Information Value Date Recorded Sex Assigned at Male 01/16/2022 10:16 AM EDT Legal Sex Male 10:16 AM EDT Gender Identity Male 01/16/2022 10:16 AM EDT Sexual Orientation Straight 01/16/2022 10 :16 AM EDT documented as of this encounter Miscellaneous Notes * Telephone Encounter - Sherlyn Elizabeth - 05/20/2024 3:56 PM EST Certificate or medical necessity for wound care supplies signed and faxed to Arian[facility] . Confirmation received and sent to scan. If patient calls to check status on above, please advise them to contact [facility] at [phone]. * Telephone Encounter - Veronica Goetz RN - 05/15/2024 2:31 PM EST TC returned to Yolanda [phone] who reports [facility] has faxed over a DME order for wound care supplies and they are awaiting PCP signature and for forms to be faxed back. RN advised JACOB Guerrero will send message to DME pool for them to f/u. [facility]olanda verbalized understanding. Please f/u regarding wound care supplies forms. Thank you! * Telephone Encounter - Trinidad Lira - 05/15/2024 1:50 PM EST Tc from [facility] with [facility] informing facility Gerald sent over a FAX 2x as needs to be sign byprovider as is for wound care. documented in this encounter Plan of Treatment Upcoming Encounters Date Type Department Care Team (Late st Contact Info) Description 06/02/2024 9:45 AM EDT Office Visit [facility] MEDICINE [address] [place] [address] Amna Richards DO [address] [place] [address] documented as of this encounter Visit Diagnoses Not on filedocumented in this encounter Additional Health Concerns Assessment Noted Time PHQ-9 Depression Total Score: 11 024 1:53 PM EDT documented as of this encounter Care Teams Asthma Educator Relationship Specialty Start Date End Date Amna Richards DO [address] [place] [address] PCP - General Family Medicine 10/12/23 [facility] 05/08/24 documented as of this encounter
--- OUTSIDE RECORDS SUMMARY | 2024-05-30 15:47 | XMS_ITS | Encounter Summary ---
Author Organization [employer] Address [address] [facility] 7t [place] [address] Care Team Providers Care Shuttle Car Operator Name Role Phone Amna Richards DO Primary Care Provider + [phone] Reason for Visit * Reason Onset Date Comments Med Refill 05/09/2024 Encounter Details Date Type Department Care Team (Late st Contact Info) Description 05/09/2024 Refill [facility] MEDICINE [address] [place], [place] [phone] Amna Richards DO [address] [place], [place] [phone] Social History Tobacco Use Types Packs/Day Years [...] encounter Miscellaneous Notes * Telephone Encounter - Antonio Yoo - 05/09/2024 9:02 AM EST TC from pt requesting medication refill. Medications needing refill : hydroCHLOROthiazide 12.5 MG tablet Ketotifen Fumarate (Alaway) 0.035 % solution Linzess 290 MCG capsule losartan (Cozaar) 25 MG tablet Roflumilast 250 MCG tablet To be sent to: [facility]/pharmacy #[id number] [place] [address] documented in this encounter Plan of Treatment Upcoming Encounters Date Type Department Care Team (Late st Contact Info) Description 06/02/2024 9:45 AM EDT Office Visit [facility] MEDICINE [address] [place] [address] Amna Richards DO [address] [place] [address] documented as of this encounter Visit Diagnoses Not on filedocumented in this encounter Additional Health Concerns Assessment Noted Time PHQ-9 Depression Total Score: 11 024 1:53 PM EDT documented as of this encounter Care Teams Shuttle Car Operator Relationship Specialty Start Date End Date Amna Richards DO [address] [place] [address] PCP - General Family Medicine 10/12/23 [facility] 05/08/24 documented as of this encounter
--- OUTSIDE RECORDS SUMMARY | 2024-05-30 15:47 | XMS_ITS | Encounter Summary ---
Author Organization [employer] Address [address] [facility] 7t [place] [address] Care Team Providers Care Branch Maker Name Role Phone Amna Richards DO Primary Care Provider + [phone] Reason for Visit * Reason Comments Care Coordination [facility] telephone call outreach Encounter Details Date Type Department Care Team (Latest Contact Info) Description 05/09/2024 Patient Outreach [facility] MEDICINE [address] [place] [address] Amna Richards DO [address] [place] [address] Care Coordination ([facility] telephone call outreach) Social History Tobacco [...] the past 12 months, has t he [employer], gas, oil or water company threatened to [...] Progress Notes * Ginette Banda - 05/09/2024 1:33 PM EST CHW Ginette Banda, placed outbound call to patient in regard to offer services. CHW introducing herself from [facility] CM Department with CHW's name, department and direct contact number requesting call back. Will re-attempt to contact within 5 days. and address not confirmed. documented in this encounter Plan of Treatment Upcoming Encounters Date Type Department Care Team (Late st Contact Info) Description 06/02/2024 9:45 AM EDT Office Visit [facility] MEDICINE [address] [place], [place] [phone] Amna Richards DO [address] [place] [address] documented as of this encounter Visit Diagnoses Not on filedocumented in this encounter Additional Health Concerns Assessment Noted Time PHQ-9 Depression Total Score: 11 024 1:53 PM EDT documented as of this encounter Care Teams Branch Maker Relationship Specialty Start Date End Date Amna Richards DO [address] [place] [address] PCP - General Family Medicine 10/12/23 [facility] 05/08/24 documented as of this encounter
--- OUTSIDE RECORDS SUMMARY | 2024-05-30 15:48 | XMS_ITS | Encounter Summary ---
Author Organization [employer] Address [address] [facility] 7t [place] [address] Care Team Providers Care Rubber Off Name Role Phone Amna Richards DO Primary Care Provider Reason for Visit * Reason Onset Date Comments Appointment Request 04/22/2024 Reschedule [facility] PULP OPERATOR appt from 02/21/24 04/22/2024 Encounter Details Date Type Department Care Team ([facility] st Contact Info) Description 04/22/2024 Telephone [facility] MEDICINE 230 [place] [address] Amna Richards DO [address] [place] [address] Appointment Request; Reschedule [facility] PULP OPERATOR appt from 02/21/24 Social History Tobacco Use Types Packs/Day Years [...] t he electric, gas, oil or water [employer] threatened to shut off services in your [...] encounter Miscellaneous Notes * Telephone Encounter - Ester Chatman RN - 05/01/2024 9:26 AM EST Per discussion with PCP< pt needs to see PCP to discuss pain medication options. Spoke with PCP's M.A., reviewed PCP instructions listed above, M.A. to call patient about scheduling options. * Telephone Encounter - Kwadwo Elizabeth - 05/01/2024 8:53 AM EST Tc from pt calling in regards to message prior stating he did not receive a call. Siphoner advised nurse called with spanish interpreter/translator and to be aware unknown number. Pt verbalized understanding and will await call. * Telephone Encounter - Ester Chatman RN - 04/23/2024 10:25 AM EST Pt was a NCNS for PULP OPERATOR RV appt 02/21/24. TC via BLS #[id number], no answer. L/M asking him to call back when he's available. * Telephone Encounter - Carlos Erazo - 04/22/2024 3:48 PM EST Pt requesting to schedule viait with PULP OPERATOR nurse to go over potentially getting prescribed traMADol (Ultram) 50 MG tablet documented in this encounter Plan of Treatment Upcoming Encounters Date Type Department Care Team (Late st Contact Info) Description 06/02/2024 9:45 AM EDT Office Visit [facility] MEDICINE [address] [place] [address] Amna Richards DO [address] [place] [address] documented as of this encounter Visit Diagnoses Not on filedocumented in this encounter Additional Health Concerns Assessment Noted Time PHQ-9 Depression Total Score: 11 024 1:53 PM EDT documented as of this encounter Care Teams Rubber Off Relationship Specialty Start Date End Date Amna Richards DO [address] [place] [address] PCP - General Family Medicine 10/12/23 documented as of this encounter
--- OUTSIDE RECORDS SUMMARY | 2024-05-30 15:48 | XMS_ITS | Encounter Summary ---
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 I have sandra granados 01/03/[address] you li ve. Do you have problems with any of the following? None of the above 01/03/2023 Food Insecurity Answer Date Recorded Within the past 12 months, y ou worried that your food would run out before you got money to buy more: Never True 01/03/2023 Within the past 12 months,th e food you bought just didn't last and you didn't have enough money to get more: Never True Transportation Answer Date Recorded In the past 12 months, has l ack of transportation kept you from medical appts, meetings, work or from getting things needed for daily living? Yes, it has kept me from medical appointments or getting medications. 12/26/2022 Utilities Answer Date Recorded In the past 12 months, has t he electric, gas, oil or water company threatened to shut off services in your home? 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 If any questions please contact pt at [phone]. documented in this encounter Plan of Treatment Upcoming Encounters Date Type Department Care Team (Late st Contact Info) Description 06/02/2024 9:45 AM EDT Office Visit [facility] MED[facility]INE [address] [place], [place] [phone] Amna Richards DO [address] [place] [address] documented as of this encounter Visit Diagnoses Not on filedocumented in this encounter Additional Health Concerns Assessment Noted Time PHQ-9 Depression Total Score: 11 023 3:01 PM EDT documented as of this encounter Care Teams Information Technology Instructor Relationship Specialty Start Date End Date Candace Quiñones MD [address] [place], [place] [phone] PCP - General Internal Medicine 07/24/22 10/11/23 Amna Richards DO [address] [place] [address] PCP - General Family Medicine 10/12/23 [facility] 05/08/24 documented as of this encounter
--- OUTSIDE RECORDS SUMMARY | 2024-05-30 15:48 | XMS_ITS | Encounter Summary ---
Author Organization [employer] Address [address] [place] [address] [address] [place] [address] Care Team Providers Care Balance Recesser Name Role Phone Candace Quiñones MD Primary Care Pro vider Amna Richards DO Primary Care Provider + [phone] Reason for Visit * Reason Comments Med Change Request Encounter Details Date Type Department Care Team ([facility] st Contact Info) Description 08/21/2022 Refill [facility] MEDICINE [address] [place] [address] Candace Quiñones MD [address] [place] [address] Social History Tobacco Use Types Packs/Day Years [...] heavy alchol use -stopped 10 y ago Sex and Gender Information Value Date Recorded [...] suspected to have Coronavirus/COVID-19? No / Unsure 08/21/2022 11:17 AM EDT documented as of this encounter Plan of Treatment Upcoming Encounters Date Type Department Care Team (Late st Contact Info) Description 06/02/2024 9:45 AM EDT Office Visit [facility] MEDICINE [address] [place] [address] Amna Richards DO [address] [place] [address] documented as of this encounter Visit Diagnoses Not on filedocumented in this encounter Additional Health Concerns Assessment Noted Time PHQ-9 Depression Total Score: 13 023 11:01 AM EDT documented as of this encounter Care Teams Balance Recesser Relationship Specialty Start Date End Date Candace Quiñones MD [address] [place] [id number] PCP - General Internal Medicine 07/24/22 10/11/23 Amna Richards DO [address] [place] [id number] PCP - General Family Medicine 10/12/23 [facility] 05/08/24 documented as of this encounter
--- OUTSIDE RECORDS SUMMARY | 2024-05-30 15:48 | XMS_ITS | Clinical Summary ---
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 Was admitted x 1 week for Rx to flu vaccine Ibuprofen Rash High Medications * This document contains information received from the source organization and may not represent a complete record from that organization. Ventolin HFA 108 (90 Base) MCG/ACT inhaler INHALE 2 PUFFS BY MOUTH EVERY 6 HOURS NEEDED SHORT OF BREATH 023 Active famotidine (Pepcid) 40 MG tablet TAKE 1 TABLET BY MOUTH EVERYDAY AT BEDTIME 022 Active Linzess 290 MCG capsule TAKE 1 CAPSULE BY MOUTH EVERY MORNING 023 Active Creon 58921-82428 units capsule TAKE 1 CAPSULE BY MOUTH 4 TIMES A DAY WITH MEALS OR SNACKS 023 Active omeprazole (PriLOSEC) [address] capsule Take 1 capsule by mouth 1 (one) time each day. 023 Active senna-docusate sodium (Senokot-S) 8.6-50 MG tablet Take 2 tablets by mouth at bedtime. Active Alcohol Sheets (Alcoh-Wipe) sheet Test daily before all meals/snacks and once before bedtime. 1 each 023 Active Roflumilast 250 MCG tablet Take 1 tablet by mouth in the morning. 023 Active insulin pen needle (B-D UF III MINI PEN NEEDLES) 31G x 5 mm miscIndications :Type 2 diabetes mellitus without complication, without long-term current use of insulin ([facility]) USE WITH INSULIN ONCE A DAY 100 each 12 023 Active insulin glargine (Basaglar KwikPen) 100 UNIT/ML pen Inject 10 Units under the skin at bedtime. 3 mL 2 023 Active Breo Ellipta 200-25 MCG/ACT aerosol powder Inhale 1 puff Once per day. 024 Active GaviLyte-G 236 g solution PLEASE SEE ATTACHED FOR DETAILED DIRECTIONS Active Simethicone Ultra Strength 180 MG capsule TAKE 1 CAPSULE BY MOUTH FOUR TIMES A DAY AFTER MEALS Active docusate sodium (Colace) 100 MG capsule TAKE 1 CAPSULE BY MOUTH TWICE A DAY WITH FOOD Active buPROPion (Wellbutrin) 75 MG tablet Take 150 mg by mouth 2 times daily. 024 Active Bisacodyl EC 5 MG EC tablet Take 10 mg by mouth at bedtime. 024 Active Spiriva HandiHaler 18 MCG inhalation capsule 1 CAPSULE INHALED DAILY FOR 30 DAYS PUNCTURE 1 CAPSULE USING DEVICE ONE DOSE = 2 INHALATIONS Active ipratropium-alb uterol (Combivent Respimat) 20-100 MCG/ACT inhaler INHALE 1 PUFF IN THE MORNING, AT NOON, IN THE EVENING, AND AT BEDTIME. 4 g 5 024 Active predniSONE (Deltasone) 10 MG tablet Take 2 tablets by mouth Once per day. 024 Active triamcinolone (Kenalog) 0.1 % ointment Apply topically if needed in the morning and at bedtime for rash. 30 g 1 024 Active ergocalciferol (Vitamin D2) 1.25 MG (58121 UT) capsule TAKE 1 CAPSULE BY MOUTH ONE TIME PER WEEK 12 capsule 1 024 Active nicotine polacrilex (Commit) 4 MG lozenge Dissolve 1 lozenge (4 mg) in the mouth every 2 (two) hours if needed for smoking cessation. 100 lozenge 1 024 Active albuterol 108 (90 Base) MCG/ACT inhalerIndicati ons:Bronchitis Inhale 2 puffs every 6 (six) hours if needed for wheezing or shortness of breath. 18 g 025 Active metFORMIN (Glucophage) 1000 MG tablet TAKE 1 TABLET BY MOUTH TWICE A DAY WITH BREAKFAST AND EVENING MEAL 180 tablet Active Blood Pressure kitIndications: Elevated blood pressure reading in office with diagnosis of hypertension 1 each 2 times daily. 1 kit 025 2025 Active Ketotifen Fumarate (Alaway) 0.035 % solutionIndicat ions:Itchy eyes Administer 1 drop into affected eye(s) if needed in the morning and at bedtime (itching). 10 mL Active albuterol (2.5 MG/3ML) 0.083% nebulizer solutionIndicat ions:Cough in adult patient Take 3 mL (2.5 mg) by nebulization Every 4-6 hours as needed for wheezing. 75 mL 2 025 2025 Active zafirlukast (Accolate) 20 MG tablet TAKE 1 TABLET BY MOUTH TWICE A DAY 180 tablet 025 Active amLODIPine (Norvasc) 5 MG tabletIndicatio ns:Hypertension , unspecified type TAKE 1 TABLET (5 MG) BY MOUTH ONCE PER DAY. 90 tablet 1 025 Active losartan (Cozaar) 25 MG tablet Take 1 tablet (25 mg) by mouth in the morning. 90 tablet 025 Active hydroCHLOROthia zide 12.5 MG tablet Take 1 tablet (12.5 mg) by mouth Once per day. 90 tablet 025 Active Diclofenac Sodium 1 % gel Apply 2 g topically if needed in the morning, at noon, in the evening, and at bedtime (pain). 150 g 3 025 Active alendronate (Fosamax) 70 MG tablet TAKE 1 TAB BY MOUTH EVERY 7 DAYS TAKE IN THE MORNING WITH A FULL GLASS OF WATER, ON AN EMPTY STOMACH, AND DO NOT TAKE ANYTHING ELSE BY MOUTH OR LIE DOWN FOR THE NEXT 30 MIN 12 tablet 1 Active amitriptyline (Elavil) 10 MG tablet Take 1 tablet (10 mg) by mouth at bedtime. 30 tablet 3 025 2024 Active acetaminophen (Tylenol 8 Hour) 650 MG ER tablet Take 1 tablet (650 mg) by mouth every 8 (eight) hours if needed for mild pain. Do not crush, chew, or split. 60 tablet 1 025 2025 Active lidocaine (Lidoderm) 5 % patch Apply 1-2 patches topically if needed each day for mild pain. Remove & discard patch within 12 hours or as directed by MD. 60 patch 3 Active atorvastatin (Lipitor) 10 MG tablet TAKE 1 TABLET BY MOUTH EVERYDAY AT BEDTIME 90 tablet 1 Active Eliquis 5 MG tablet Take 1 tablet (5 mg) by mouth 2 times daily. 60 tablet 1 Active losartan (Cozaar) 25 MG tablet TAKE 1 TABLET BY MOUTH EVERY DAY IN THE MORNING 90 tablet 024 2024 Discontinued(R eorder (will not trigger notification to Pharmacy)) Eliquis 5 MG tablet Take 1 tablet (5 mg) by mouth 2 times daily. 60 tablet 1 024 2024 Discontinued(R eorder (will not trigger notification to Pharmacy)) amLODIPine (Norvasc) 5 MG tabletIndicatio ns:Hypertension , unspecified type Take 1 tablet (5 mg) by mouth Once per day. 90 tablet 1 024 2024 Discontinued amitriptyline (Elavil) 10 MG tablet Take 1 tablet (10 mg) by mouth at bedtime. 30 tablet 5 024 2024 Discontinued(R eorder (will not trigger notification to Pharmacy)) atorvastatin (Lipitor) 10 MG tablet TAKE 1 TABLET BY MOUTH EVERYDAY AT BEDTIME 90 tablet 1 024 2024 Discontinued alendronate (Fosamax) 70 MG tablet TAKE 1 TAB BY MOUTH EVERY 7 DAYS TAKE IN THE MORNING WITH A FULL GLASS OF WATER, ON AN EMPTY STOMACH, AND DO NOT TAKE ANYTHING ELSE BY MOUTH OR LIE DOWN FOR THE NEXT 30 MIN 12 tablet 1 024 2024 Discontinued Diclofenac Sodium 1 % gel Apply 2 g topically if needed in the morning, at noon, in the evening, and at bedtime (pain). 150 g 3 024 2024 Discontinued(R eorder (will not trigger notification to Pharmacy)) hydroCHLOROthia zide 12.5 MG tablet Take 1 tablet (12.5 mg) by mouth Once per day. 90 tablet 024 2024 Discontinued(R eorder (will not trigger notification to Pharmacy)) zafirlukast (Accolate) 20 MG tablet TAKE 1 TABLET BY MOUTH TWICE A DAY 180 tablet 2024 Discontinued guaiFENesin-dex tromethorphan (Robitussin DM) 100-10 MG/5ML syrupIndication s:Cough in adult patient Take 5 mL by mouth every 4 (four) hours if needed for cough for up to 10 days. 120 mL 025 2024 traMADol (Ultram) 50 MG tabletIndicatio ns:Chronic pain of right hand Take 1 tablet (50 mg) by mouth every 6 (six) hours if needed for severe pain for up to 7 days. 28 tablet 025 2024 Active Problems Patient Care Coordination No te Formatting of this note migh t be different from the original. 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 Agreement signed: 07/27/23 Medication: Tramadol 50mg Q6H PRN Primary osteoarthritis of right knee 02/19/2023 Assessment & Plan (02/19/2023 5:42 PM EST): Rest at home with elevated leg at 60 degrees Put ice on affected area Use compressive knee brace and cane for ambulation, Use Tylenol 650mg tid x 1w and refer to PT Atrophy of left hand muscles 01/03/2023 Poor memory 12/01/2022 Assessment & Plan (12/01/2022 12:38 AM EDT): Pt noted to be very forgetful -will eval next apt Adenomyomatosis of gallbladder 10/24/2022 Assessment & Plan (12/01/2022 12:32 AM EDT): -Abd US 10/13/2022 GALLBLADDER: Cholesterol crystal artifact in the gallbladder wall consistent with adenomyomatosis. No cholelithiasis or gallbladder wall thickness. Pt not complaining of R upper quadrant pain. Would monitor. If having any discomfort will refer to surgery. Assessment & Plan (10/24/2022 5:23 AM EDT): -Abd US 10/13/2022 GALLBLADDER: Cholesterol crystal artifact in the gallbladder wall consistent with adenomyomatosis. No cholelithiasis or gallbladder wall thickness. Pt not complaining of R upper quadrant pain. Would monitor. If having any discomfort will refer to surgery. History of vertebral fracture 07/21/2022 Assessment & Plan (12/01/2022 12:39 AM EDT): CT angio done 06/2022 he does have 70% T5 vertebral body loss, which seems to be new from image on 05/27/2022.NOT TAKING ANY more oxycodone x dizziness ,- Lidoderm patch.-was not helpful,- Refused Gabapentin for dizziness in the past with med. Overall improved pain s/p kyphoplasty on 08/2022. -MRI thoracic spine 08/2022: acute edematous, severe compression fracture T7, 80% body weight loss. There are T2 signal changes within T6 spinous process tip that may be degenerative, inflammatory or post-traumatic, to f up w CT. Chronic compression fracture T5, disc osteophyte and facet arthropathy resulting in moderate to severe bilateral foraminal stenosis from T5-T10. Small disc portrusion w mild narrowing of central canal at and below T4-T5. - Advised to take Tylenol 1g q8 hours. - Continue his chronic tramadol 50 mg Q 6 h prn -- continue on contract -px already at previous visit narcan-states he has at home -continue alendronate -continue to f w pain management and spinal surgeon. Will discuss at next about CT f up for T6 spinal process findings to see if he had it already w specialist, Following w pain mgmt for cervical spondylosis. S/p injections, and referred by them to PT. --- -from last utox in 09/2022 Pt was + for morphine in confirmatory test -tramadol test was not done -I called [facility] today and per lab staff morphine + test result should not be from tramadol and tramadol should be requested with ID code [id number] --pt states today he had morphine px before in the hospital and took only one dose --today to do utox Assessment & Plan (10/24/2022 5:24 AM EDT): CT angio done 06/2022 he does have 70% T5 vertebral body loss, which seems to be new from image on 05/27/2022.NOT TAKING ANY more oxycodone x dizziness ,- Lidoderm patch.-was not helpful,- Refused Gabapentin for dizziness in the past with med. Overall improved pain s/p kyphoplasty on 08/2022. -MRI thoracic spine 08/2022: acute edematous, severe compression fracture T7, 80% body weight loss. There are T2 signal changes within T6 spinous process tip that may be degenerative, inflammatory or post-traumatic, to f up w CT. Chronic compression fracture T5, disc osteophyte and facet arthropathy resulting in moderate to severe bilateral foraminal stenosis from T5-T10. Small disc portrusion w mild narrowing of central canal at and below T4-T5. - Advised to take Tylenol 1g q8 hours. - Continue his chronic tramadol 50 mg Q 6 h prn -- started care w Anna for opioid contract -- test pos in [facility] on 09/26/2022 for morphine. Plan was to repeat test, rescheduled apt already for test 10/30/2022 -px already at previous visit narcan-states he has at home -continue alendronate -pt never started using px inh calcitonin -no need now -continue to f w pain management and spinal surgeon. My plan was to discuss about recommended CT f up for T6 spinal process findings to see if he had it already w specialist, however pt left apt w out being able to discuss this. Following w pain mgmt for cervical spondylosis. S/p injections, and referred by them to PT. Assessment & Plan (08/21/2022 2:16 PM EDT): CT angio done 06/2022 he does have 70% T5 vertebral body loss, which seems to be new from image on 05/27/2022.NOT TAKING ANY more oxycodone x dizziness ,- Lidoderm patch.-was not helpful,- Refused Gabapentin for dizziness in the past with med. Explained that I would prescribe lower dose for now, but still refused. Overall improved pain - Advised to take Tylenol 1g q8 hours. - Continue his chronic tramadol 50 mg Q 6 h prn --today started care w Anna for opioid contract -px already at previous visit narcan-states he has at home -continue alendronate -pt never started using px inh calcitonin -no need now -back brace sent today again -today gave to pt written prescription -pt states has already f up apt w spinal surgeon x 09/03/2022 - Alarm signs and symptoms discussed, and advised to go to ED if pain isn't improving Assessment & Plan (07/21/2022 6:43 PM EDT): CT angio done 06/2022 he does have 70% T5 vertebral body loss, which seems to be new from image on 05/27/2022. . - Advised to take Tylenol 1g q8 hours. - Continue Oxycodone prescribed at hospital for severe pain. BUT Discussed in leggerardo w pt to not take tramadol while taking oxycodone -pt understands risk -prescribed narcan today - Lidoderm patch. - Refused Gabapentin for dizziness in the past with med. Explained that I would prescribe lower dose for now, but still refused. -start alendronate for now until f w endo and start x 14 weeks calcitonin intranasal to improve pain for acute fracture -back brace px today -pt states has already apt w othopedics this month referred at hospital x 07/25/2022 - Alarm signs and symptoms discussed, and advised to go to ED if pain isn't improving Leukocytosis 07/12/2022 Assessment & Plan (12/01/2022 12:26 AM EDT): Most likely 2/2 chronic steroid use? 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 Will follow up in next visit with patient about this and if still present at next labs will consider to refer again -CBC including blood Smear ordered at last visit, not done labs yet Assessment & Plan (10/24/2022 5:04 AM EDT): Most likely 2/2 chronic steroid use? 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 Will follow up in next visit with patient about this and if still present at next labs will consider to refer again -CBC including blood Smear ordered at last visit, not done labs yet Assessment & Plan (08/21/2022 2:34 PM EDT): Most likely 2/2 chronic steroid use? 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 Will follow up in next visit with patient about this and if still present at next labs will consider to refer again -labs today including blood smear Assessment & Plan (07/21/2022 6:41 PM EDT): Most likely 2/2 chronic steroid use? 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 Will follow up in next visit with patient about this and if still present at next labs will consider to refer again Assessment & Plan (07/12/2022 10:17 PM EDT): Most likely 2/2 chronic steroid use? 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 Will follow up in next visit with patient about this. Healthcare maintenance 07/12/2022 Assessment & Plan (12/01/2022 12:40 AM EDT): -labs x annual exam ordered 07/2022, however pt never had blood work done. Advise to have tests done today -vaccines: Status post Tdap 2016,S/p pneumovax 23 x 2,p20 today discussed w pt about Covid, Shingrix vaccines but refusing ,reports hx of allergy to flu vaccine-will discuss at next apt about flublok ? -colonoscopy 08/2020 found more than 10 mm polyp with no other findings. Per patient had a more recent colonoscopy told to not have major findings and following actively with GI.---will try to get records and per pt to repeat test -pt will f w GI -will check PSA at 53 y of age if pt desires -will do quantiferon due chronic steroids use and uncontrolled Dm to have a baseline. Ordered already, tests not done yet.--to be done today Not in fasting -advised pt to bring all meds at next visit--offered medbox but refusing Assessment & Plan (10/24/2022 5:10 AM EDT): - -labs x annual exam ordered 07/2022, however pt never had blood work done. Advise to have tests done. -vaccines: Status post Tdap 2015,S/p pneumovax 23 x 2,today and I discussed w pt about Covid, P20, Shingrix vaccines.BUT X now refusing -colonoscopy 08/2020 found more than 10 mm polyp with no other findings. Per patient had a more recent colonoscopy told to not have major findings and following actively with GI.---will try to get records and per pt to repeat test -pt will f w GI -will check PSA at 53 y of age if pt desires -will do quantiferon due chronic steroids use and uncontrolled Dm to have a baseline. Ordered already, tests not done yet. -advised pt to bring all meds at next visit Assessment & Plan (08/21/2022 2:30 PM EDT): - -labs x annual exam today in fasting -vaccines: Status post Tdap 2015,S/p pneumovax 23 x 2,today and I discussed w pt about Covid, P20, Shingrix vaccines.BUT X now refusing -colonoscopy 08/2020 found more than 10 mm polyp with no other findings. Per patient had a more recent colonoscopy told to not have major findings and following actively with GI.---will try to get records and per pt to repeat test -pt will f w GI -will check PSA at 53 y of age if pt desires -will do quantiferon due chronic steroids use and uncontrolled Dm to have a baseline -advised pt to bring all meds at next visit Assessment & Plan (07/21/2022 6:50 PM EDT): Status post Tdap 2015 S/p pneumovax 23 x 2 I will discuss again at next visit about Covid, P20, Shingrix vaccines.x now refusing -08/2020 found more than 10 mm polyp with no other findings. Per patient had a more recent colonoscopy told to not have major findings and following actively with GI.---will check w pt when had done and request records if confirmed had one after 2020-if not will refer back to GI Will do annual exam at next apt Assessment & Plan (07/12/2022 10:24 PM EDT): Status post Tdap 2016 S/p pneumovax 23 x 2 I will discuss next visit about Covid, P20, Shingrix vaccines. Will check at next visit when was his last annual physical exam and will update labs at next visit. Tobacco dependence 05/03/2022 Assessment & Plan (12/01/2022 12:26 AM EDT): Smoked since 15 y of age until now,smoked 2PQT a day now 6 to 7 cigarettes a day x last 3 months --PQT nilay is 74 History of chronic tobacco use. With trial of Chantix in the past --but stopped taking med -pt was interested to resume again chantix in 07/2022 but reports feeling weird on Rx and stopped after a few wks -Refused for now tobacco cessation program--states tried before w program -Advised in length about tobacco cessation -continue following w slasher f lung ca screening ( as per in lung nodules problem) -start on chantix by slasher Assessment & Plan (10/24/2022 5:08 AM EDT): Smoked since 15 y of age until now,smoked 2PQT a day now 6 to 7 cigarettes a day x last 3 months --PQT nilay is 72 History of chronic tobacco use. With trial of Chantix in the past --but stopped taking med -pt was interested to resume again chantix in 07/2022 but reports feeling weird on Rx and stopped after a few wks -Refused for now tobacco cessation program--states tried before w program -Advised in length about tobacco cessation -continue following w slasher f lung ca screening ( as per in lung nodules problem) -I tried to discuss today about other tobacco cessation options, but pt got very upset and left apt Assessment & Plan (08/21/2022 2:22 PM EDT): Smoked since 15 y of age until now,smoked 2PQT a day now 6 to 7 cigarettes a day x last 3 months --PQT nilay is 72 History of chronic tobacco use. With trial of Chantix in the past --but stopped taking med -pt interested to resume again chantix --px today and confirmed w px That order is ok -will start again w low dose 0.5 mg daily x 3 days then 0.5 mg BID x 4 days and then 1 mg BID x 11 weeks -start nicotine gums -requested by pt -Refused for now tobacco cessation program--states tried before w program -Advised in length about tobacco cessation -continue following w slasher f lung ca screening ( as per in lung nodules problem) Assessment & Plan (07/21/2022 6:41 PM EDT): History of chronic tobacco use. With trial of Chantix in the past --states NOT smoking for the past week that was in the hospital Refused for now tobacco cessation program. Advised in length about tobacco cessation Assessment & Plan (07/12/2022 10:19 PM EDT): History of chronic tobacco use. With trial of Chantix in the past but is still smoking. Refused for now tobacco cessation program. Advised in length about tobacco cessation. Nephrolithiasis 05/03/2022 Pulmonary nodules 05/03/2022 Assessment & Plan (12/01/2022 12:36 AM EDT): Patient with multiple pulmonary nodules seen in previous CT scans including the last one. In one CT scan in 2018 he did have tree in bud nodules in [place]. Rec for bronchoscopy, per patient he never underwent any procedure. 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 In one CT scan in 2018 he did have tree in bud nodules in [place]. Rec for bronchoscopy, per patient he never underwent any procedure. 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 In one CT scan in 2018 he did have tree in bud nodules in [place]. Rec for bronchoscopy, per patient he never underwent any procedure. 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 In one CT scan in 2018 he did have tree in bud nodules in [place]. Rec for bronchoscopy, per patient he never underwent any procedure. -CTA chest 06/2022: mild bronchial wall thickening w scattered bronchial filling defects ,dependendt consolidation in [place],few small nodules are seen, <0.5 cm -unchanged - I advised the patient to follow up with his slasher about nodules and hx of tobacco smoking Assessment & Plan (07/12/2022 9:58 PM EDT): Patient with multiple pulmonary nodules seen in previous CT scans including the last one. In one CT scan in 2018 he did have tree in bud nodules in [place]. Rec for bronchoscopy, per patient he never underwent any procedure. - I advised the patient to follow up with his slasher about this. Chronic constipation 05/03/2022 Assessment & Plan (12/01/2022 12:33 AM EDT): Patient seen by GI for this. Diagnosed with chronic idiopathic constipation. Underwent colonoscopy. Last record from 08/2020 found more than 10 mm polyp with no other findings. Per patient had a more recent colonoscopy told to not have major findings and following actively with GI and today states is planned to repeat another colonoscopy ? -CT abd/pelvis w contrast 06/2022: Normal abd exam -Abd US 10/13/2022 PANCREAS: Normal. ABDOMINAL AORTA: Abdominal aorta is atherosclerotic without aneurysm. INFERIOR VENA CAVA: Visualized portions are normal. LIVER: The liver is normal in size. The liver contour is normal. There is diffuse increased liver parenchymal echogenicity, consistent with hepatic steatosis. No focal hepatic lesion. There is no intrahepatic biliary duct dilatation seen. GALLBLADDER: Cholesterol crystal artifact in the gallbladder wall consistent with adenomyomatosis. No cholelithiasis or gallbladder wall mass. COMMON BILE DUCT: Normal in caliber measuring 0.5 cm in diameter. RIGHT KIDNEY: Normal. No hydronephrosis. No renal calculi or focal parenchymal lesions LEFT KIDNEY: 0.8 cm simple cyst in the mid kidney. No follow-up imaging is recommended. No hydronephrosis or renal calculi.SPLEEN: Normal. FREE FLUID: None. IMPRESSION: No explanation for abdominal pain. Hepatic steatosis. - Prescribed Miralax PRN at previous visit-not using ,continue linzess and senna prn and diet recommendations--states this meds helps so denies needing any other medication x constipation -if constipation is again a problem may consider movantik but hold x now given states is passing Bms w current meds -pt reports ongoing abdominal discomfort with no obvious cause and constipation for which advised to continue care with GI in multiple occasions for planned to repeat colonoscopy per pt to further evaluate symptoms of pain and constipation with no obvious findings on recent CT abd/pelvis and abd US Assessment & Plan (10/23/2022 8:45 PM EDT): Patient seen by GI for this. Diagnosed with chronic idiopathic constipation. Underwent colonoscopy. Last record from 08/2020 found more than 10 mm polyp with no other findings. Per patient had a more recent colonoscopy told to not have major findings and following actively with GI and today states is planned to repeat another colonoscopy ? -CT abd/pelvis w contrast 06/2022: Normal abd exam -Abd US 10/13/2022 PANCREAS: Normal. ABDOMINAL AORTA: Abdominal aorta is atherosclerotic without aneurysm. INFERIOR VENA CAVA: Visualized portions are normal. LIVER: The liver is normal in size. The liver contour is normal. There is diffuse increased liver parenchymal echogenicity, consistent with hepatic steatosis. No focal hepatic lesion. There is no intrahepatic biliary duct dilatation seen. GALLBLADDER: Cholesterol crystal artifact in the gallbladder wall consistent with adenomyomatosis. No cholelithiasis or gallbladder wall mass. COMMON BILE DUCT: Normal in caliber measuring 0.5 cm in diameter. RIGHT KIDNEY: Normal. No hydronephrosis. No renal calculi or focal parenchymal lesions LEFT KIDNEY: 0.8 cm simple cyst in the mid kidney. No follow-up imaging is recommended. No hydronephrosis or renal calculi.SPLEEN: Normal. FREE FLUID: None. IMPRESSION: No explanation for abdominal pain. Hepatic steatosis. - Prescribed Miralax PRN at previous visit-not using ,continue linzess and senna prn and diet recommendations--states this meds helps so denies needing any other medication x constipation -if constipation is again a problem may consider movantik but hold x now given states is passing Bms w current meds -pt reports ongoing abdominal discomfort with no obvious cause and constipation for which advised to continue care with GI in multiple occasions for planned to repeat colonoscopy per pt to further evaluate symptoms of pain and constipation with no obvious findings on recent CT abd/pelvis and abd US Assessment & Plan (08/21/2022 2:31 PM EDT): Patient seen by GI for this. Diagnosed with chronic idiopathic constipation. Underwent colonoscopy. Last record from 08/2020 found more than 10 mm polyp with no other findings. Per patient had a more recent colonoscopy told to not have major findings and following actively with GI and today states is planned to repeat another colonoscopy ? -CT abd/pelvis w contrast 06/2022: Normal abd exam - Prescribed Miralax PRN at previous visit-not using ,continue linzess and senna prn and diet recommendations--states this meds helps so denies needing any other medication x constipation -continue f up w GI -pt states will schedule a f up apt --also I request today to [facility]-( Karen Dave) to try to get last colonoscopy report -referred today x abd US x chronic abd distention -if constipation is again a problem may consider movantik but hold x now given states is passing Bms w current meds Assessment & Plan (07/21/2022 6:31 PM EDT): Patient seen by GI for this. Diagnosed with chronic idiopathic constipation. Underwent colonoscopy. Last record from 08/2020 found more than 10 mm polyp with no other findings. Per patient had a more recent colonoscopy told to not have major findings and following actively with GI. -CT abd/pelvis w contrast 06/2022: Normal abd exam - Prescribed Miralax PRN at previous visit ,continue linzess and senna prn and diet recommendations -continue f up w GI -pt states will schedule a f up Assessment & Plan (07/12/2022 10:21 PM EDT): Patient seen by GI for this. Diagnosed with chronic idiopathic constipation. Underwent colonoscopy. Last record from 08/2020 found more than 10 mm polyp with no other findings. Per patient had a more recent colonoscopy and following actively with GI. - Prescribed Miralax PRN and diet recommendations. Tubular adenoma 05/03/2022 Assessment & Plan (12/01/2022 12:26 AM EDT): f w GI already -per pt has apt x repeat colonoscopy -but he will call to his specialist to see when is apt Assessment & Plan (10/24/2022 5:08 AM EDT): f w GI already -per pt has apt x repeat colonoscopy -but he will call to his specialist to see when is apt Assessment & Plan (08/21/2022 2:23 PM EDT): f w GI already -per pt has apt x repeat colonoscopy -but he will call to his specialist to see when is apt -will try to get last record of last colonoscopy -requested to [facility] today ( Andrei) Type 2 diabetes mellitus 04/11/2022 Assessment & Plan (12/01/2022 12:28 AM EDT): Hb1ac 10/2022 is 7.4 <-- 10.2 <-- - 9.2. Likely due to chronic steroid use. - Stop Farxiga 2 mo ago as possible cause of worsening balanitis - Continue Metformin 1 g BID. 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 Likely due to chronic steroid use. - Stop Farxiga 2 mo ago as possible cause of worsening balanitis - Continue Metformin 1 g BID. - Continue januvia 25 mg daily instead,discussed about GLP1 but refusing x now -continue basal insulin- 10 HS -referred to marine engine mechanic----to eval x osteoporosis , DM and likely Culloden syndrome that can explain pts physical features w large abdominal girth and decrease muscle mass in extremities -with normal liver and no peritoneal fluid in CT scan and abd US.---apt scheduled x 11/02/2022 at 9 am- - Patient would like a library aide referral.-referred already ??-discussed about hypoglyecemic symptoms and to check CBGs in fasting and 2 h after biggest meal and bring at next visit readings -will refer to branch operations coordinator at future visit -referred to double spindle shaper operator Assessment & Plan (08/21/2022 2:19 PM EDT): Hb1ac 07/2022 is 10.2 <-- - 9.2. Likely worsening due to chronic steroid use. CBgs at home states now while on insuline bw 130 to 150s ,denies any hypoglycemic events - Continue Metformin 1 g BID. 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 that can explain pts physical features w large abdominal girth and decrease muscle mass in extremities -with normal liver and no peritoneal fluid in CT scan.---apt scheduled x 11/02/2022 at 9 am--I told today this info to pt by phone - Patient would like a library aide referral.-referred today ??-discussed about hypoglyecemic symptoms and to check CBGs in fasting and 2 h after biggest meal and bring at next visit readings -will refer to branch operations coordinator at future visit -referred today to double spindle shaper operator -DM labs today in fasting Assessment & Plan (07/21/2022 6:46 PM EDT): Hb1ac today is 10.2 <-- - 9.2. Likely worsening due to chronic steroid use. - Continue Metformin 1 g BID. - continue Farxiga 5 mg every day.-started recently a week ago--will consdier to increase at next visit -if tolerating -want to hold on too many changes with so many new meds x him -pt agreed today to start basal insulin-states used to inj in the past -start 7 u of lantus HS-taught how to inj today as well -( basaglar was not covered and I did a verbal prescription to px of lantus-pen instead of basaglar) -referred today to marine engine mechanic----to eval x osteoporosis ,uncontrolled DM and likely Culloden syndrome that c an explain pts physical features w large abdominal girth and decrease muscle mass in extremities -with normal liver and no peritoneal fluid in CT scan. - Patient would like a library aide referral. Will refer at next visit. ??-discussed about hypoglyecemic symptoms and to check CBGs in fasting and 2 h after biggest meal and bring at next visit readings Assessment & Plan (07/12/2022 10:15 PM EDT): Last Hb1ac - 9.2. CBG >300 Likely worsening due to chronic steroid use. - Continue Metformin 1 g BID. - Start Farxiga 5 mg every day. - Refused to start insulin for now and refused offer of rapid insulin for high CBG at clinic today. - Will discuss with patient about increasing Farxiga today and maybe adding GLP- 1 at next visit. - Will refer to marine engine mechanic at next appointment in 2 weeks. - Patient would like a library aide referral. Will refer at next visit. Assessment & Plan (06/20/2022 11:48 AM EDT): Blood glucose is 440 today Declines insulin Encourage having Metformin regularly CMP to evaluate electrolytes COPD (chronic obstructive pulmonary disease) 09/2014 Assessment & Plan (12/01/2022 12:36 AM EDT): Patient with COPD/Asthma overlap syndrome 2/2 tobacco smoking - following with Dr. Armaan Elizabeth. Last seen on 08/28/2022 . Patient is on chronic steroids. From last note planned to decrease prednisone to 10 mg daily - CT angiogram of chest/abd/pelvis which was negative for PE and intraabdominal abnormalities. He does have bronchial wall thickening with scattered bronchial filling defects. Dependent consolidation the left upper lobe along the fissure. A few small nodules. The max diameter is 0.4 cm reported as unchanged. T5 vertebral body compression deformity which is new from 12/16/2021 and also new compared with 05/27/2022. - per pt on Combivent, Symbicort, Umeclidinium - all prescribed by specialist.and from note there is plan to start Daliresp and to switch from symbicort .umeclidinium to trellegy -on prednisone chronically titrated down to 10 mg daily -has f up w pulm Aprox 02/2023 Assessment & Plan (10/23/2022 8:39 PM EDT): Patient with COPD/Asthma overlap syndrome 2/2 tobacco smoking - following with Dr. Armaan Elizabeth. Last seen on 08/28/2022 . Patient is on chronic steroids. From last note planned to decrease prednisone to 10 mg daily - CT angiogram of chest/abd/pelvis which was negative for PE and intraabdominal abnormalities. He does have bronchial wall thickening with scattered bronchial filling defects. Dependent consolidation the left upper lobe along the fissure. A few small nodules. The max diameter is 0.4 cm reported as unchanged. T5 vertebral body compression deformity which is new from 12/16/2021 and also new compared with 05/27/2022. - per pt on Combivent, Symbicort, Umeclidinium - all prescribed by specialist.and from note there is plan to start Daliresp and to switch from symbicort .umeclidinium to trellegy -on prednisone chronically per pulm note plan to decrease dose to 10 mg daily -has f up w pulm on 11/08/2022 Assessment & Plan (08/21/2022 1:55 PM EDT): Patient with COPD/Asthma overlap syndrome 2/2 tobacco smoking - following with Dr. Armaan Elizabeth. Last seen on 06/14/2022 for similar complaints. Patient is on chronic steroids. Per patient, currently on 10 mg of Prednisone daily , Combivent, Symbicort, Umeclidinium - all prescribed by specialist. - CT angiogram of chest/abd/pelvis which was negative for PE and intraabdominal abnormalities. He does have bronchial wall thickening with scattered bronchial filling defects. Dependent consolidation the left upper lobe along the fissure. A few small nodules. The max diameter is 0.4 cm reported as unchanged. T5 vertebral body compression deformity which is new from 12/16/2021 and also new compared with 05/27/2022. Oxygen sat with activity checked at previous visit ( 06/2022) by MA and majority of time the patient was above 95% with few decrease readings from 88-89% ------- I tried to call Dr. Elizabeth at previous visit but was not able to reach him. I left my cell phone number to receive a callback.-Not received a call back Note from pulmonary mentions his last visit on 06/14/2022. Was treated with NBZ and Solumedrol. - pt is not completely well controlled but significantly better compare w last visit ---advised to use now all inh as rec -states has all meds now -and advised to f w specialist -pt thinks has apt x this month 08/2022 Assessment & Plan (07/21/2022 6:43 PM EDT): Patient with COPD/Asthma overlap syndrome 2/2 tobacco smoking - following with Dr. Armaan Elizabeth. Last seen on 06/14/2022 for similar complaints. Patient is on chronic steroids. Per patient, currently on 10 mg of Prednisone, Combivent, Symbicort, Umeclidinium - all prescribed by specialist. - CT angiogram of chest/abd/pelvis which was negative for PE and intraabdominal abnormalities. He does have bronchial wall thickening with scattered bronchial filling defects. Dependent consolidation the left upper lobe along the fissure. A few small nodules. The max diameter is 0.4 cm reported as unchanged. T5 vertebral body compression deformity which is new from 12/16/2021 and also new compared with 05/27/2022. Oxygen sat with activity checked at last visit by MA and majority of time the patient was above 95% with few decrease readings from 88-89% ------- I tried to call Dr. Elizabeth at previous visit but was not able to reach him. I left my cell phone number to receive a callback. Note from pulmonary mentions his last visit on 06/14/2022. Was treated with NBZ and Solumedrol. - pt is not well controlled but better compare w last visit ---advised to use now all inh as rec -states has all meds now -and advised to schedule earlier visit w provider otherwise was told to f up in 08/2022 Assessment & Plan (07/12/2022 9:55 PM EDT): Patient with COPD/Asthma overlap syndrome 2/2 tobacco smoking - following with Dr. Armaan Elizabeth. Last seen on 06/14/2022 for similar complaints. Patient is on chronic steroids. Per patient, currently on 10 mg of Prednisone, Combivent, Symbicort, Umeclidinium - all prescribed by specialist. BUT patient reports lately not using Combivent given he ran out. - CT angiogram of chest/abd/pelvis which was negative for PE and intraabdominal abnormalities. He does have bronchial wall thickening with scattered bronchial filling defects. Dependent consolidation the left upper lobe along the fissure. A few small nodules. The max diameter is 0.4 cm reported as unchanged. T5 vertebral body compression deformity which is new from 12/16/2021 and also new compared with 05/27/2022. Oxygen sat with activity checked today by MA and majority of time the patient was above 95% with few decrease readings from 88-89% ------- I tried to call Dr. Elizabeth today but was not able to reach him. I left my cell phone number to receive a callback. Note from pulmonary mentions his last visit on 06/14/2022. Was treated with NBZ and Solumedrol. - Prescribed today: Combivent to resume medication and rest of inhalers. Advised patient to follow with slasher for uncontrolled COPD. - Guaifenesin to try to improve expectoration, will hold on antibiotics. Patient is s/p mx ATB with no change in medical status. However if he develops fever or change in cough, would consider Pseudomonas coverage. Depressive disorder 02/22/2015 Assessment & Plan (12/01/2022 12:23 AM EDT): Mention of hx of depression-PHQ9: 11 w no SI Pt is easily irritable, .-Will need to further eval in the future and offer Tx Assessment & Plan (10/24/2022 5:06 AM EDT): Mention of hx of depression-PHQ9: 11 w no SI Pt is easily irritable, and left apt w out completing visit. Will need to further eval in the future and offer Tx Assessment & Plan (08/21/2022 2:20 PM EDT): Mention of hx of depression-will f w pt at next visit Seems in good spirits today Essential hypertension 02/22/2015 Assessment & Plan (12/01/2022 12:34 AM EDT): -BP controlled today - referred already to ophthalmology-last vsit > 1 y ago -pd to get apt - losartan 25 mg daily and advise to take amlodipine 5 mg HS -tdday check chem after started losartan - microalb ordered -labs not done Assessment & Plan (10/23/2022 8:41 PM EDT): -BP controlled today - referred already to ophthalmology-last vsit > 1 y ago -pd to get apt -started 2 mo ago losartan 25 mg daily and advise to take amlodipine 5 mg HS -plan today was to check chem after started losartan - microalb ordered -labs not done Assessment & Plan (08/21/2022 1:58 PM EDT): -BP again elevated today here despite having better controlled his pain -dont bring any home BP readings - referred today to ophthalmology-last vsit > 1 y ago -will add today losartan 25 mg daily and advise to take amlodipine 5 mg HS -will check chem in 4 weeks after starts today ARAbs -do microalb today -advise to bring daily BP readings at next visit Assessment & Plan (07/21/2022 6:46 PM EDT): -BP mild elevated today possible in setting of pain Advised to take all prescribed meds and to bring all bottles to next appointment - Will refer to ophthalmology if not seen one in the last year -if ongoing elevated BP will add Terence inh or ARbs low dose in setting of his DM will have benefit -do microalb at next visit x annual exam -advise to bring daily BP readings at next visit Assessment & Plan (07/12/2022 10:00 PM EDT): BP uncontrolled today. Patient seems not to be sure which medications he's taking for HTN. Advised to take all prescribed meds and to bring all bottles to next appointment in 2 weeks. - Will refer to ophthalmology if not seen one in the last year. Chronic gastroesophageal reflux disease 02/23/20 15 Assessment & Plan (12/01/2022 12:33 AM EDT): Chronic GERD on PPIs and H2 blockers f w GI --advised to continue care w specialist Assessment & Plan (10/23/2022 8:42 PM EDT): Chronic GERD on PPIs and H2 blockers f w GI --advised to continue care w specialist Assessment & Plan (08/21/2022 1:58 PM EDT): Chronic GERD on PPIs and H2 blockers f w GI --advised to continue care w specialist Hyperlipidemia 02/22/2015 Assessment & Plan (12/01/2022 12:25 AM EDT): On statins low dose -will repeat fasting lipids - ordered already, but not done yet. Assessment & Plan (10/24/2022 5:27 AM EDT): On statins low dose -will repeat fasting lipids - ordered already, but not done yet. 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 - start alendronate weekly-explained how to take med and possible SE -start ca BID and vit D weekly -stop daily vit D -referred today to endocrinology -Refer today for DEXA scan to monitor Assessment & Plan (07/12/2022 10:03 PM EDT): Per history patient has osteoporosis diagnosed several years ago, but no record of Alendronate on my chart review. 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 - Will refer to endocrinology at next visit. -Refer today for DEXA scan and will start on treatment with results. - Will prescribe Calcium/Vitamin D at next visit. Resolved Problems Problem Noted Date Diagnosed Date Resolved Date Pre-op exam 07/24/2023 10/11/2023 Assessment & Plan (07/26/2023 3:07 PM EDT): According to the ACC/AHA guidelines he is of intermediate perioperative risk with RCRI of 3.9% (0 points) given his uncontrolled T2DM and severe COPD with poor METs for a low surgical risk procedure. He may proceed with the procedure as scheduled pending eval with cardiology and pulmonology. Diffuse pain in right lower extremity 03/11/2023 10/11/2023 Assessment & Plan (03/11/2023 10:42 AM EST): Pt with recent dxed right femoral superficial vein thrombosis started on AC for the past 4 days but today w worsening leg pain, extending above and below right knee and bluish and cold right toes concerning for arterial compromise -advised pt to go to ER immediately -pt agreed , offered to call ambulance but states his son who is waiting for pt outside clinic will take to ER today, explained risk of losing limb if arterial ischemia , pt understands and states will go to ED after leaving clinic -pt will call here to reschedule apt for HFU after is dc from [facility] 07/21/2022 10/11/2023 Assessment & Plan (12/01/2022 12:31 AM EDT): Pt w balanitis symptoms-chronic ,on and off and phymosis but significantly improved Pt states this is occurring even prior to starting on fargixa BUT Seems possible worsen since taking med already stopped for 2 mo. -trial again wclotrimazole BID x 21 days and fluconazole 150 x1not took before pt pt -referred already to urologist Assessment & Plan (10/24/2022 5:26 AM EDT): Pt w balanitis symptoms-chronic ,on and off and phymosis Pt states this is occurring even prior to starting on fargixa BUT Seems possible worsen since taking med already stopped for 2 mo. -clotrimazole BID x 21 days and fluconazole 150 x1not helpful -- prescribed before, at last visit, clotrimazole w topical steroids combination x 2 weeks -referred already to urologist -monitor at next visit - plan was to discuss about these Sx, but pt left before we could discuss this. Assessment & Plan (08/21/2022 2:29 PM EDT): Pt w balanitis symptoms-chronic ,on and off and phymosis Pt states this is occurring even prior to starting on fargixa BUT Seems possible worsen since taking med -clotrimazole BID x 21 days and fluconazole 150 x1not helpful ---will start clotrimazole w topical steroids combination x 2 weeks -stop farxiga today -referred today to urologist -monitor at next visit Assessment & Plan (07/21/2022 6:48 PM EDT): Pt w balanitis symptoms -seem prior started fargixa -clotrimazole BID x 21 days -fluconazole 150 x1 -monitor at next visit ,if continues to occur will need to stop fargixa as a possible cause Rib pain 07/12/2022 10/11/2023 Assessment & Plan (07/26/2023 3:08 PM EDT): He is referred for rib XR for eval. Assessment & Plan (07/13/2022 9:10 AM EDT): Patient is complaining of rib pain on the right side of the thoracic spine. Per patient for the last month. He has old fractures in his ribs but not in the area of current pain. From CT angio done yesterday he does have 70% T5 vertebral body loss, which seems to be new from image on 05/27/2022. 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 - Advised to take Tylenol 1g q8 hours. - Continue his Tramadol for severe pain. - Start Lidoderm patch. - Refused Gabapentin today for dizziness in the past with med. Explained that I would prescribe lower dose for now, but still refused. - Referred for ribs xr - Alarm signs and symptoms discussed, and advised to go to ED if pain isn't improving. Right leg swelling 06/20/2022 Assessment & Plan (06/21/2022 10:48 AM EDT): ddimer ordered CMP, BNP Will followup with ultrasound if Ddimer is positive Addendum: d-dimer is slightly positive at .54mcg/ml Ultrasound of RLE ordered Chronic pain syndrome 05/03/20222022 Chronic pain of right hand 05/03/2022 0 07/21/2022 Severe persistent asthma 05/03/202207/2022 Assessment & Plan (06/20/2022 11:37 AM EDT): Pt here for HDF, has been to ER three times in past month with asthma, not clear exactly which pumps he is using apart from Combivent every 4 hours and Albuterol inhalation every 12 hours (upon wakening and bed time) - represcribed Symbicort for daily use as controller med (last picked up 10/2021) - lungs are tight at the bases, prednisone 20mg x 5 days - Augmentin for possible ongoing bacterial infection - Mucinex for expectorant - he asks repeatedly about oxycodone for pain in the central sternum with coughing and deep breathing, explained pleurisy to him and that treating the infection and asthma execerbation would improve his pain symptoms - for chronic pain related issues, to followup with PCP History of COVID-19 04/11/2022 07/22/19 Anxiety 02/22/2015 07/21/2022 Asthma 02/22/2015 05/03/2022 Kidney stone 02/22/2015 05/03/2022 Tobacco dependence syndrome 02/22/2015 05/03/2022 Encounters Date Type Department Care Team Description 05/30/2024 Population Health Risk Score [facility] (C3) Department [address] [place] [phone] Provider, Population Health Generic 05/28/2024 Patient Outreach [facility] [place] [place] [address] Amna Richards DO Care Coordination ([facility]3 -[facility] Ginette Banda telephone call outreach) 05/27/2024 Refill [facility] [place] [address] Amna Richards DO 05/26/2024 Orders Only [facility] [place] [address] Amna Richards DO Type 2 diabetes mellitus without complication, without long-term current use of insulin (CMS/[facility]) (Primary Dx) 05/23/2024 Telephone [facility] [place] [address] Amna Richards DO Referral 05/22/2024 Refill [facility] [place] [address] Amna Richards DO 05/21/2024 Telephone [facility] [place] [address] Amna Richards DO Nurse Triage 05/16/2024 9:15 AM EST Office Visit [facility] [place] [address] Amna Richards DO Chronic pain of right hand (Primary Dx); Type 2 diabetes mellitus without complication, without long-term current use of insulin ([facility]) 05/16/2024 Telephone [facility] [place] [address] Amna Richards DO HDF 05/16/2024 Travel 05/16/2024 Refill [facility] [place] [address] Amna Richards DO 05/15/2024 Telephone [facility] [place] [address] Amna Richards DO FYI 05/14/2024 Travel 05/13/2024 Patient Outreach [facility] [place] [address] Amna Richards DO Transition Of Care (Tcm) (HDF- Unscheduled SECOND LVM) 05/09/2024 Patient Outreach [facility] [place] [address] Amna Richards DO Care Coordination (C3 [facility] telephone call outreach) 05/09/2024 Patient Outreach [facility] [place] [address] Amna Richards DO Care Coordination (C3 [facility] telephone call outreach) 05/09/2024 Refill [facility] [place] [address] Amna Richards DO 05/09/[address] [address] Amna Richards DO 05/08/2024 Patient Outreach [address] [address] Amna Richards DO Transition Of Care (Tcm) (HDF- Unscheduled LVM) 05/07/2024 Patient Outreach [address] [address] Amna Richards DO Care Coordination (C3 [facility] telephone call outreach ) 05/07/[address] [address] Amna Richards DO Hypertension, unspecified type 05/02/2024 Patient Outreach [address] [address] Amna Richards DO Care Coordination (C3 [facility] telephone call outreach ) 05/02/2024 Patient Outreach [address] [address] Amna Richards DO Care Coordination (C3 [facility] telephone call outreach) 05/02/[address] [address] Amna Richards DO Care Management (C3CM- chart review) 05/01/[address] [address] Amna Richards DO Appointment Request 05/01/[address] [address] Amna Richards DO 04/23/2024 6:20 PM EST Office Visit [facility] [address] [address] Patricia Padilla NP Cough in adult patient (Primary Dx); Elevated blood pressure reading in office with diagnosis of hypertension; Itchy eyes; Wheezing 04/23/2024 Travel 04/23/2024 Telephone [facility] [address] [place] [address] India Dey, RN Nurse Triage (Chest pain) 04/22/[address] [address] Amna Richards, Appointment Request; Reschedule [facility] [employer]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 from 02/21/24 04/22/[address] [address] Amna Richards DO Nurse Triage 04/20/2024 Refill [facility] [address] [place] [phone] Bong Sahni MD Bronchitis 04/17/[address] [address] Amna Richards DO Appointment Request 04/12/[address] [address] Amna Richards DO 03/29/2024 10:40 AM EST Office Visit [facility] [address] [place] [phone] Bong Sahni MD Viral URI; Bronchitis 03/29/2024 Travel 03/28/[address] [address] Amna Richards DO Nurse Triage 03/25/[address] [address] Amna Richards DO No Show from Last 3 Months Immunizations Name Administration Dates Next Due Influenza, IIV3, injectable 02/23/2005, 2 Pneumococcal Conjugate PCV 20 11/29/2022 Pneumococcal Polysaccharide PPSV23 05/20/2015, Tdap 08/29/2020,05/20/2015 Family History Medical History Relation Name Comments htn Mother Relation Name Status Comments Mother Social History Tobacco Use Types Packs/Day Years Used Date Smoking Tobacco: Every Day Cigarettes Passive Smoke Exposure: Current Smokeless Tobacco: Never Tobacco Cessation:Ready to Q uit: Not Asked; Counseling Given: Not Answered Comments:Smoked since 15 y of age until now,smoked 2PQT a day now [...] your housing situation today? I have sandra darwin 08/06/[address] you li [...] Orientation Straight 01/16/2022 10 :16 AM EDT Last Filed Vital Signs Vital Sign Reading Time Taken Comments Blood Pressure 142/78 05/16/2024 9:24 AM EST Pulse 89 05/16/2024 9:24 AM EST Temperature 36.8 ??C (98.2 ??F) 05/16/2024 9:24 AM ES T Respiratory Rate 22 05/16/2024 9:24 AM EST Oxygen Saturation 98% 05/16/2024 9:24 AM EST Inhaled Oxygen Concentration - - Weight 75.8 kg (167 lb) 05/16/2024 9:24 AM EST Height 167.6 cm (5' 6 ) 05/16/2024 9:24 AM EST Body Mass Index 26.95 05/16/2024 9:24 AM EST Plan of Treatment Upcoming Encounters Date Type Department Care Team (Late st Contact Info) Description 06/02/2024 9:45 AM EDT Office Visit [facility] [address] [place] [address] Amna Richards DO [address] [place], [place] [phone] Health Maintenance Due Date Last Done Comments CT Colonography 1968 Colonoscopy 1968 Colorectal Cancer Screening 1968 FIT DNA/Cologuard 1968 FIT 1968 FOBT 1968 Sigmoidoscopy 1968 Diabetes: Foot Exam 02/20/1978 Eye Exam 02/20/1978 Hepatitis B Vaccines (1 of 3 - 19+ 3-dose series) 02/20/1987 Zoster Vaccines (1 of 2) 02/20/2018 COVID-19 Vaccine ( season) 2023 Influenza Vaccine (#1) 2023 02/23/2005, 2001 Diabetes: Urine Protein Screening 12/02/2023 12/01/2022, 07/05/2021 Lipid Panel 12/02/2023 12/01/2022, 07/05/2021 Depression Monitoring (PHQ-9) 03/04/2024 09/03/2023, 09/03/2023 Diabetes: Hemoglobin A1C 08/13/202405/16/ 025, 02/01/2024, 09/03/2023, Additional history exists Depression Screening 09/02/2024 09/03/2023, 09/03/19 24 Alcohol/Substance Use Screening 05/16/2025 05/16/2024 SDOH Screening 05/16/2025 05/16/2024 Tobacco Screening 05/16/2025 05/16/2024 DTaP/Tdap/Td Vaccines (3 - Td or Tdap) 08/29/2030 08/29/2020, 05/20/2015 RSV Patients and Patients Aged 60 years or older (1 - 1-dose 75+ series) 02/20/2043 Pneumococcal Vaccine: 50+ Years Completed 11/29/2022, 05/20/2015, 02/23/2005 HIV Screening Completed 12/01/2022, 07/05/2021 Hepatitis C Screening Completed 12/01/2022, 022 HIB Vaccines Aged Out No longer eligi ble based on patient's age to complete this topic HPV Vaccines Aged Out No longer eligi ble based on patient's age to complete this topic Hepatitis A Vaccines Aged Out No long er eligible based on patient's age to complete this topic IPV Vaccines Aged Out No longer eligi ble based on patient's age to complete this topic Meningococcal Vaccine Aged Out No aileen dee eligible based on patient's age to complete this topic RSV under 20 months Aged Out No longe r eligible based on patient's age to complete this topic Rotavirus Vaccines Aged Out No longer eligible based on patient's age to complete this topic Procedures Procedure Name Priority Date/Time Associated Diagnosis Comments POCT GLYCATED HEMOGLOBIN, TOTAL Routine 05/16/2024 9:30 AM EST Type 2 diabetes mellitus without complication, without long-term current use of insulin ([facility]) POCT GLUCOSE Routine 05/16/2024 9:29 AM EST Type 2 diabetes mellitus without complication, without long-term current use of insulin ([facility]) POCT INFLUENZA A (ID NOW RAPID MOLECULAR) Routine 04/23/2024 7:28 PM EST Cough in adult patient POCT INFLUENZA B (ID NOW RAPID MOLECULAR) Routine 04/23/2024 7:28 PM EST Cough in adult patient POCT RAPID COVID ANTIGEN Routine 04/23/2024 7:26 PM EST Cough in adult patient RESPIRATORY VIRAL PANEL PCR Routine 03/29/2024 11:22 AM EST Bronchitis POCT INFLUENZA B (ID NOW RAPID MOLECULAR) Routine 03/29/2024 11:05 AM EST Viral URI POCT INFLUENZA A (ID NOW RAPID MOLECULAR) Routine 03/29/2024 11:05 AM EST Viral URI POCT RAPID STREP A Routine 03/29/2024 11 :05 AM EST Viral URI POCT RAPID COVID ANTIGEN Routine 03/29/2024 11:05 AM EST Viral URI ALBUMIN, RANDOM URINE W/CREATININE Routine 12/01/2022 12:06 PM EDT HEPATITIS C AB W/REFL TO HCV RNA, QN, PCR Routine 12/01/2022 12:01 PM EDT Health care maintenance HIV ANTIBODY/ANTIGEN ([place] DPH) Routine 12/01/2022 12:01 PM EDT LIPID PANEL, STANDARD Routine 12/01/2022 12:01 PM EDT from Last 3 Months or Most Recently Relevant to Health Maintenance Results * (ABNORMAL) POCT HGB A1C (05/16/2024 9:30 AM EST) Hemoglobin A1C 8.5(A) 4.0 - 6.0 % QC Media Lot # [id number] Lot# Expiration Date [id number] Blood 05/16/2024 9:30 AM EST Amna Richards DO POINT OF CARE TEST ENTER/LOU T ORDERABLES Final Result * (ABNORMAL) POCT Glucose (05/16/2024 9:29 AM EST) Glucose Blood, POC 226(A) 60 - 200 mg/dL QC Media Lot # [id number] Lot# Expiration Date 8459,025 Blood Capillary blood specimen / Unknown 05/16/2024 9:29 AM EST Amna Richards DO POINT OF CARE TEST ENTER/LOU T ORDERABLES Final Result * POCT Rapid Influenza B LUNDY ID NOW (04/23/2024 7:28 PM EST) Only the most recent of2 resultswithin the time period is included. [facility] Influenza B Negative Negative, Indeterminate [facility] Swab 04/23/2024 7:28 PM EST [facility] MICROBIOLOGY TEACHER POINT OF CARE TEST ENTER/EDIT O RDERABLES Final Result Performing Organization Address [facility]/ZIP Co de Phone Number [facility] [address] [place] [phone] * POCT Rapid Influenza A LUNDY ID NOW (04/23/2024 7:28 PM EST) Only the most recent of2 resultswithin the time period is included. [facility] Influenza A Negative Negative, Indeterminate [facility] Swab 04/23/2024 7:28 PM EST [facility] POINT OF CARE TEST ENTER/EDIT O RDERABLES Final Result Performing Organization Address [facility]/ZIP Co de Phone Number [facility] [address] [place] [phone] * POCT Rapid Covid-19 BinaxNOW (04/23/2024 7:26 PM EST) Only the most recent of2 resultswithin the time period is included. [facility] Rapid COVID Ag Negative Swab 04/23/2024 7:26 PM EST [facility]CROBIOLOGY TE[facility]ER POINT OF CARE TEST ENTER/EDIT O RDERABLES Final Result * (ABNORMAL) Respiratory Viral Panel PCR (03/29/2024 11:22 AM EST) Adenovirus PCR Not Detected Not Detect. [facility] Bordetella pertussis PCR Not Detected Not Detect. [facility] Comment:Interpret results wi th caution. If B. pertussis isspecifically suspected, additional testing using analternate method is recommended. Bordetella parapertussis PCR Not Detected Not Detect. [facility] Chlamydia pneumoniae PCR Not Detected Not Detect. [facility] Coronavirus 229E PCR Not Detected Not Detect. [facility] Coronavirus HKU1 PCR Not Detected Not Detect. [facility] Coronavirus NL63 PCR Not Detected Not Detect. [facility] Coronavirus OC43 PCR Not Detected Not Detect. [facility] SARS-CoV-2 PCR Not Detected Not Detect. [facility] Comment:SARS-CoV-2 not detec tamra by real-time RT-PCR.Note: If clinical suspicion for Sars-CoV-2 is high, continueto maintain precautions and consider repeat testing.Test results should be interpreted in the context ofclinical findings and other laboratory data.Rare polymorphisms exist that could lead to false-negativeor false-positive results. If results do not match theclinical findings, additional testing should be considered.Results reported to [facility].This test has been authorized by the FDA under the EmergencyUse Authorization (EUA) for use by authorized laboratories. Influenza A PCR Not Detected Not Detect. [facility] Influenza B PCR Not Detected Not Detect. [facility] Human metapneumovirus PCR Not Detected Not Detect. [facility] Rhino/Enterovirus PCR Not Detected Not Detect. [facility] Mycoplasma pneumoniae PCR Not Detected Not Detect. [facility] Parainfluenza 1 PCR Not Detected Not Detect. [facility] Parainfluenza 2 PCR Not Detected Not Detect. [facility] Parainfluenza 3 PCR Not Detected Not Detect. [facility] Parainfluenza 4 PCR Not Detected Not Detect. [facility] RSV PCR Detected(A) Not Detect. [facility] Resp Panel NA Note See Note H [facility] Comment:All results must be correlated with clinical findings.Negative results should not be used as the sole basis fordiagnosis, treatment, or other management decisions.A negative result does not exclude the possibility of viralor bacterial infection. Negative results may occur from thepresence of sequence variants in the region targeted by theassay, the presence of inhibitors, an infection caused by anorganism not detected by the panel, or lower respiratorytract infections that are not detected by a nasopharyngealswab specimen. Test results may also be affected byconcurrent antiviral/antibacterial therapy or levels oforganism in the specimen that are below the limit ofdetection for this test.This assay is performed by Multiplexed PCR, utilizing [employer] Array. Swab 03/29/2024 11:2 2 AM EST 03/29/2024 1:29 PM EST us Bong Sahni MD LAB BLOOD ORDERABLES Final Resul t Performing Organization Address City/[facility]/ZIP Co de Phone Number [facility] [address] [place] [phone] * POCT rapid strep A manually resulted (03/29/2024 11:05 AM EST) Rapid Strep A Screen Negative Negative, None Detected [facility] Swab 03/29/2024 11:0 5 AM EST us Bong Sahni MD POINT OF CARE TEST ENTER/EDIT OR DERABLES Final Result Performing Organization Address [facility] de Phone Number [facility] [address] [place] [phone] * (ABNORMAL) Albumin, Random Urine W/Creatinine (12/01/2022 12:06 PM EDT) Creatinine, Urine 134.93 mg/dL [facility] Microalbumin Urine 71.0 mg/L H [facility] Microalbum Creatinine Ratio Ur 52.6(H) <30 ug/mg cr [facility] Comment:Albumin/Creatinine R atio Reference Ranges: Normal: < 30 ug/mg creatinine Microalbuminuria: 30 - 300 ug/mg creatinineClinical Albuminuria: > 300 ug/mg creatinine 12/01/2022 12:0 6 PM EDT 12/01/2022 2:44 PM EDT us Candace Palmer MD LAB URINE ORDERAB LES Final Result Performing Organization Address [facility] Co de Phone Number [facility] [address] [place] [phone] * HIV Ab/Ag ([facility]) (12/01/2022 12:01 PM EDT) HIV AB/AG Nonreactive Nonreactive [facility] Comment:HIV-1 p24 Ag and/or HIV-1/HIV-2 Ab not detected.A test result that is nonreactive does not exclude thepossibility of exposure to or infection with HIV-1 and/orHIV-2. Nonreactive results in this assay for individualswith prior exposure to HIV-1 and/or HIV-2 may be due toantigen and antibody levels that are below the limit ofdetection of this assay.The [employer] HIV Ag/Ab Combo assay result andsupplemental assay results should be interpreted inconjunction with the patient's clinical presentation,history and other laboratory results. If the results areinconsistent with clinical evidence, additional testing issuggested to confirm the result. 12/01/2022 12:0 1 PM EDT 12/01/2022 2:52 PM EDT us Candace Palmer MD LAB BLOOD ORDERAB LES Final Result Performing Organization Address City/[facility]/ZIP Co de Phone Number [facility] [address] [place] [phone] * Hepatitis C Antibody with Reflex to HCV, RNA, Quantitative, Real-Time PCR (12/01/2022 12:01 PM EDT) Hepatitis C Antibody Nonreactive Nonreactive [facility] Comment:Antibodies to HCV no t detected; does not exclude early acuteHCV infection. Blood Venous blood specimen / Unknown 12/01/2022 12:01 PM EDT 12/01/2022 2:52 PM EDT us Candace Palmer MD LAB BLOOD ORDERAB LES Final Result Performing Organization Address [facility] Co de Phone Number [facility] [address] [place] [phone] * (ABNORMAL) Lipid Panel, Standard (12/01/2022 12:01 PM EDT) Triglycerides 79 <150 mg/dL [facility] Comment:Desirable Triglyceri de: less than 150 mg/dLBorderline High Triglyceride 150-199 mg/dLHigh Triglyceride: 200-499 mg/dLVery High Triglyceride: greater than or equal to 5OO mg/dL Cholesterol 178 <200 mg/dL [facility] Comment:Desirable Cholestero l: less than 200 mg/dLBorderline High Cholesterol: 200-239 mg/dLHigh Cholesterol: greater than 239 mg/dL LDL Cholesterol Calculated 100(H) <100 mg/dL [facility] Comment:Desirable LDL: less than 100 mg/dLNear Optimal/Above Optimal LDL: 110- 129 mg/dLBorderline High LDL: 130-159 mg/dLHigh LDL: 160-189 mg/dLVery High LDL: greater than or equal to 190 mg/dL HDL Cholesterol 63 >40 mg/dL [facility] Comment:Desirable HDL: great er than 40 mg/dL Note: This HDL assay may give artificially low results in patients with liver disease. 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
--- OUTSIDE RECORDS SUMMARY | 2024-05-30 15:48 | XMS_ITS | Clinical Summary ---
Author Organization [facility] ity Address [address] [place] [address] Care Team Providers Care Eyelet Riveter Name Role Phone Amna Richards Primary Care Provider [phone] Medical History Medical History Date Comments Tobacco use 05/28/2017 DX:Tobacco use Asthma-COPD overlap syndrome (CMS/HCC) 05/28/2017 DX:Asthma-COPD overlap syndrome (HCC) Social History Tobacco Use Types Packs/Day Years Used Date Smoking Tobacco: Some Days Cigarettes Smokeless Tobacco: Never Alcohol Use Standard Drinks/Week Comments No 0 (1 standard drink = 0.6 oz pur e alcohol) Sex and Gender Information Value Date Recorded Sex Assigned at Not on file Legal Sex Male 1:15 PM EST Gender Identity Not on file Sexual Orientation Not on file Obstetrics History Plan of Treatment Health Maintenance Due Date Last Done Comments DTaP,Tdap,and Td Vaccines (1 - Tdap) 02/20/1987 Hepatitis B Vaccines (1 of 3 - 19+ 3-dose series) 02/20/1987 Pneumococcal Vaccine: 50+ Ye ars (1 of 2 - PCV) 02/20/1987 Pneumococcal Vaccine: Pediat rics (0 to 5 Years) and At-Risk Patients (6 to 64 Years) (1 of 2 - PCV) 02/20/1987 Zoster Vaccines (1 of 2) 02/20/2018 Cholesterol Screening (Lipid Panel) 04/17/2023 Colorectal Cancer Screening: Colonoscopy 04/17/2023 Depression Screening 04/17/2023 HIV Screening 04/17/2023 Hepatitis C Screening 04/17/2023 Social Influencers of Health Screening 04/17/2023 COVID-19 Vaccine ( - 2023-2 5 season) 2023 Influenza Vaccine (#1) 2023 HIB Vaccines Aged Out No longer eligi [...] on patient's age to complete this topic MMR Vaccines Aged Out No longer eligi ble based on patient's age to complete this topic Meningococcal ACWY Vaccine Aged Out N o longer eligible based on patient's age to complete this topic Meningococcal B Vacine Aged Out No lo nger eligible based on patient's age to complete this topic RSV Immunization Patients Un marylou 20 months Aged Out No longer eligible b ased on patient's age to complete this topic Varicella Vaccines Aged Out No longer eligible based on patient's age to complete this topic Advance Directives Documents on File Type Date Recorded Patient Stem Lead Former Expl anation Health Care Decision (hx) 06/24/2017 AD MCCANN DIRECTIVE Health Care Decision (hx) 06/24/2017 AD MCCANN DIRECTIVE Health Care Decision (hx) 06/24/2017 AD MCCANN DIRECTIVE Health Care Decision (hx) 06/24/2017 AD MCCANN DIRECTIVE Health Care Decision (hx) 06/24/2017 AD MCCANN DIRECTIVE Care Teams Eyelet Riveter Relationship Specialty Start Date End Date Amna Richards DO [address] [place] [address] PCP - General Internal Medicine 06/20/17
--- OUTSIDE RECORDS SUMMARY | 2024-05-30 15:48 | XMS_ITS | Encounter Summary ---
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 I informed him that there are no entries in his chart, stating that any paperwork was received by medical records. I provided him with the HIM Department's fax number, and he agreed to contact [facility] to have them fax any paperwork that needs to be reviewed and signed by his provider. 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 I informed him that there are no entries in his chart, stating that any paperwork was received by medical records. I provided him with the [facility] Department's fax number, and heagreed to contact [facility] to have them fax any paperwork that needs to be reviewed and signed by his provider. documented in this encounter Plan of Treatment Upcoming Encounters Date Type Department Care Team (Late st Contact Info) Description 06/02/2024 9:45 AM EDT Office Visit [facility] [address] [place] [address] Amna Richards DO [address] [place] [address] documented as of this encounter Visit Diagnoses Not on filedocumented in this encounter Additional Health Concerns Assessment Noted Time PHQ-9 Depression Total Score: 11 023 3:01 PM EDT documented as of this encounter Care Teams Puppy Walker Relationship Specialty Start Date End Date Candace Quiñones MD [address] [place] [address] PCP - General Internal Medicine 07/24/22 10/11/23 Amna Richards DO [address] [place] [address] PCP - General Family Medicine 10/12/23 [facility] 05/08/24 documented as of this encounter
--- OUTSIDE RECORDS SUMMARY | 2024-05-30 15:48 | XMS_ITS | Encounter Summary ---
Author Organization [employer] Address [address] [facility] 7t [place] [address] Care Team Providers Care Electrical Appliance Mechanic Name Role Phone Amna Richards DO Primary Care Provider + [phone] Reason for Visit * Reason Onset Date Comments Care Management 05/02/2024 [facility]- chart revi ew Encounter Details Date Type Department Care Team ([facility] st Contact Info) Description 05/02/2024 Telephone [facility]INE [address] [place] [address] Amna Richards DO [address] [place] [address] Care Management ([facility]- chart review) Social History Tobacco Use Types Packs/Day Years [...] the past 12 months, has t he [employer], gas, oil or water [employer] threatened to shut off services in your [...] encounter Miscellaneous Notes * Telephone Encounter - Aldo Valle RN - 05/02/2024 8:28 AM EST CHRISTOPHE Valle RN, performed chart review, in anticipation of initial assessment with patient, aspatient has stratified for C3 Adult Complex Care through the ADT feed. History significant for COPD, depressive disorder, essential hypertension, chronic gastroesophageal reflux disease, hyperlipidemia, osteoporosis, type 2 diabetes mellitus, tobacco dependence, pulmonary nodules, chronic constipation, tubular adenoma, leukocytosis, history of vertebra fracture, adenomyomatosis of gallbladder, poor memory, atrophy of left hand muscles, primary osteoarthritis of right knee, long-term current useof opiate analgesic. Specialists include [facility] orthopedic surgery, [facility] vascular surgery, [facility] hematology and oncology, [facility] cardiology[facility] physical therapy, podiatry, [facility] endocrinology, [facility] pain management, [facility] pulmonology, [facility] gastroenterology. ED visits within the last 12 months include [facility] 05/01/24,[facility] 08/25/23, [facility] 08/10/23. Last appointment in PCP office on 04/23/24. Next appointment scheduled for . documented in this encounter Plan of Treatment Upcoming Encounters Date Type Department Care Team (Late st Contact Info) Description 06/02/2024 9:45 AM EDT Office Visit [facility] [address] [place] [address] Amna Richards DO [address] [place] [address] documented as of this encounter Visit Diagnoses Not on filedocumented in this encounter Additional Health Concerns Assessment Noted Time PHQ-9 Depression Total Score: 11 024 1:53 PM EDT documented as of this encounter Care Teams Electrical Appliance Mechanic Relationship Specialty Start Date End Date Amna Richards DO [address] [place] [address] PCP - General Family Medicine 10/12/23 documented as of this encounter
--- OUTSIDE RECORDS SUMMARY | 2024-05-30 15:48 | XMS_ITS | Encounter Summary ---
Author Organization [employer] Address [address] [facility] 7t [place] [address] Care Team Providers Care Supervisor Laundry Name Role Phone Susie Amna Primary Care Provider + [phone] Reason for Visit * Reason Comments Med Refill Encounter Details Date Type Department Care Team ([facility] st Contact Info) Description 01/25/2024 Refill [facility] [address] [place] [address] Candace Singh MD [address] [place] [address] Fracture of vertebra due to osteoporosis, sequela Social History Tobacco Use Types Packs/Day Years [...] Description 06/02/2024 9:45 AM EDT Office Visit [facility] [address] [place] [address] Amna Richards DO [address] [place] [address] documented as of this encounter Visit Diagnoses Diagnosis Fracture of vertebra due to osteoporosis, sequela documented in this encounter Additional Health Concerns Assessment Noted Time PHQ-9 Depression Total Score: 11 024 1:53 PM EDT documented as of this encounter Care Teams Supervisor Laundry Relationship Specialty Start Date End Date Amna Richards DO [address] [place] [address] PCP - General Family Medicine 10/12/23 [facility] 05/08/24 documented as of this encounter
--- OUTSIDE RECORDS SUMMARY | 2024-05-30 15:48 | XMS_ITS | Encounter Summary ---
Author Organization [employer] Address [address] [facility] 7t [place] [address] Care Team Providers Care Technical Aide Name Role Phone Candace Quiñones MD Primary Care Pro vider Amna Richards DO Primary Care Provider + [phone] Reason for Visit * Reason Onset Date Comments Med Refill 03/20/2023 Encounter Details Date Type Department Care Team (Late st Contact Info) Description 03/20/2023 Telephone [facility] MED[facility]INE [address] [place] [address] Candace Quiñones MD [address] [place], [place] [phone] Med Refill Social History Tobacco Use Types [...] encounter Miscellaneous Notes * Telephone Encounter - Kwadow Elizabeth - 03/20/2023 12:09 PM EST TC from pt requesting medication refill. Medications needing refill : traMADol (Ultram) 50 MG tablet To be sent to: [facility]/pharmacy #[id number] documented in this encounter Plan of Treatment Upcoming Encounters Date Type Department Care Team (Late st Contact Info) Description 06/02/2024 9:45 AM EDT Office Visit [facility] MED[facility]INE [address] [place] [address] Amna Richards DO [address] [place] [address] documented as of this encounter Visit Diagnoses Not on filedocumented in this encounter Additional Health Concerns Assessment Noted Time PHQ-9 Depression Total Score: 11 023 3:01 PM EDT documented as of this encounter Care Teams Technical Aide Relationship Specialty Start Date End Date Candace Quiñones MD [address] [place] [address] PCP - General Internal Medicine 07/24/22 10/11/23 Amna Richards DO [address] [place] [address] PCP - General Family Medicine 10/12/23 [facility] 05/08/24 documented as of this encounter
--- OUTSIDE RECORDS SUMMARY | 2024-05-30 15:48 | XMS_ITS | Encounter Summary ---
Author Organization [employer] Address [address] [place] [address] 7t [place] [address] Care Team Providers Care Wind Turbine Technician Name Role Phone Candace Quiñones MD Primary Care Pro vider Amna Richards DO Primary Care Provider + [phone] Reason for Visit * Reason Onset Date Comments Appointment Request 11/21/2022 Encounter Details Date Type Department Care Team ([facility] st Contact Info) Description 11/21/2022 Telephone [facility]INE [address] [place] [address] Candace Quiñones MD [address] [place] [address] Appointment Request Social History Tobacco Use Types Packs/Day Years [...] Recorded Patient Health Questionnaire-9 Score 11 10/23/2022 Depression Answer Date Recorded Patient Health Questionnaire-2 Score 3 10/23/2022 Sex and Gender Information Value Date Recorded Sex Assigned at Male 01/16/2022 10:16 AM EDT Legal Sex Male 10:16 AM EDT Gender Identity Male 01/16/2022 10:16 AM EDT Sexual Orientation Straight 01/16/2022 10 :16 AM EDT documented as of this encounter Miscellaneous Notes * Telephone Encounter - Marni Henning - 11/21/2022 9:35 AM EDT Tc from pt requesting to r/s missed appt 11/14/22 . documented in this encounter Plan of Treatment Upcoming Encounters Date Type Department Care Team (Late st Contact Info) Description 06/02/2024 9:45 AM EDT Office Visit [facility] MED[facility]INE [address] [place] [address] Amna Richards DO [address] [place] [address] [phone] documented as of this encounter Visit Diagnoses Not on filedocumented in this encounter Additional Health Concerns Assessment Noted Time PHQ-9 Depression Total Score: 11 023 3:01 PM EDT documented as of this encounter Care Teams Wind Turbine Technician Relationship Specialty Start Date End Date Candace Quiñones MD [address] [place] [address] PCP - General Internal Medicine 07/24/22 10/11/23 Amna Richards DO [address] [place] [address] [phone] PCP - General Family Medicine 10/12/23 [facility] 05/08/24 documented as of this encounter
--- OUTSIDE RECORDS SUMMARY | 2024-05-30 15:48 | XMS_ITS | Encounter Summary ---
Author Organization [employer] Address [address] [place] [address] 7t [place] [address] Care Team Providers Care Weapons Officer Name Role Phone Candace Quiñones MD Primary Care Pro vider Amna Richards DO Primary Care Provider + [phone] Reason for Visit * Reason Onset Date Comments Medication Question 11/23/2022 Encounter Details Date Type Department Care Team ([facility] st Contact Info) Description 11/23/2022 Telephone [facility] MED[facility]INE [address] [place] [address] Candace Quiñones MD [address] [place] [address] Medication Question Social History Tobacco Use Types Packs/Day Years [...] * Telephone Encounter - Marni Henning - 11/23/2022 4:07 PM EDT Tc from pt requesting to speak to someone regarding his traMADol (Ultram) 50 MG tablet . documented in this encounter Plan of Treatment Upcoming Encounters Date Type Department Care Team (Late st Contact Info) Description 06/02/2024 9:45 AM EDT Office Visit [facility] [address] [place] [address] Amna Richards DO [address] [place] [phone] documented as of this encounter Visit Diagnoses Not on filedocumented in this encounter Additional Health Concerns Assessment Noted Time PHQ-9 Depression Total Score: 11 023 3:01 PM EDT documented as of this encounter Care Teams Weapons Officer Relationship Specialty Start Date End Date Candace Quiñones MD [address] [place] [address] [phone] PCP - General Internal Medicine 07/24/22 10/11/23 Amna Richards DO [address] [place] [address] [phone] PCP - General Family Medicine 10/12/23 [facility] 05/08/24 documented as of this encounter
--- OUTSIDE RECORDS SUMMARY | 2024-05-30 15:48 | XMS_ITS | Encounter Summary ---
Author Organization [employer] Address [address] [facility] 7t [place] [address] Care Team Providers Care Video Presentation Operator Name Role Phone Candace Quiñones MD Primary Care Pro vider Amna Richards DO Primary Care Provider + [phone] Encounter Details Date Type Department Care Team (Late st Contact Info) Description 09/13/2023 Community Care Management [facility]INE [address] [place] [address] Candace Quiñones MD [address] [place], [place] [phone] Social History Tobacco Use Types Packs/Day Years [...] 06/02/2024 9:45 AM EDT Office Visit [facility] MED[facility]INE [address] [place] [address] Amna Richards DO [address] [place] [address] documented as of this encounter Visit Diagnoses Not on filedocumented in this encounter Additional Health Concerns Assessment Noted Time PHQ-9 Depression Total Score: 11 024 1:53 PM EDT documented as of this encounter Care Teams Video Presentation Operator Relationship Specialty Start Date End Date Candace Quiñones MD [address] [place] [address] PCP - General Internal Medicine 07/24/22 10/11/23 Amna Richards DO [address] [place] [address] PCP - General Family Medicine 10/12/23 [facility] 05/08/24 documented as of this encounter
--- OUTSIDE RECORDS SUMMARY | 2024-05-30 15:48 | XMS_ITS | Encounter Summary ---
Author Organization [employer] Address [address] [facility] 7t [place] [address] Care Team Providers Care Casework Manager Name Role Phone Amna Richards DO Primary Care Provider + [phone] Reason for Visit * Reason Comments Med Refill Encounter Details Date Type Department Care Team ([facility] st Contact Info) Description 2024 Refill [facility] [address] [place], [place] [phone] Amna Richards DO [address] [place], [place] [phone] Social History Tobacco Use Types Packs/Day Years [...] Description 06/02/2024 9:45 AM EDT Office Visit [facility] [address] [place] [address] Amna Richards DO [address] [place] [address] documented as of this encounter Visit Diagnoses Not on filedocumented in this encounter Additional Health Concerns Assessment Noted Time PHQ-9 Depression Total Score: 11 024 1:53 PM EDT documented as of this encounter Care Teams Casework Manager Relationship Specialty Start Date End Date Amna Richards DO [address] [place] [address] PCP - General Family Medicine 10/12/23 [facility] 05/08/24 documented as of this encounter
--- OUTSIDE RECORDS SUMMARY | 2024-05-30 15:48 | XMS_ITS | Encounter Summary ---
Author Organization [employer] Address [address] [facility] 7t [place] [address] Care Team Providers Care Gang Supervisor Name Role Phone Amna Richards DO Primary Care Provider + [phone] Reason for Visit * Reason Comments [facility]ination [facility] Encounter Details Date Type Department Care Team (Latest Contact Info) Description 05/02/2024 Patient Outreach [facility] MED[facility]INE [address] [place] [address] Amna Richards DO [address] [place] [address] Care Coordination ([facility] telephone call outreach ) Social History [...] the past 12 months, has t he [employer], gas, oil or water company threatened to [...] encounter Progress Notes * Ginette Banda - 05/02/2024 9:45 AM EST CHW Ginette Banda, placed outbound call to patient in regard to offer services. CHW introducing herself from [facility] CM Department with CHW's name, department and direct contact number requesting call back. Will re-attempt to contact within 5 days. and address not confirmed. documented in this encounter Plan of Treatment Upcoming Encounters Date Type Department Care Team (Late st Contact Info) Description 06/02/2024 9:45 AM EDT Office Visit [facility] MED[facility]INE [address] [place] [address] Amna Richards DO [address] [place] [address] documented as of this encounter Visit Diagnoses Not on filedocumented in this encounter Additional Health Concerns Assessment Noted Time PHQ-9 Depression Total Score: 11 024 1:53 PM EDT documented as of this encounter Care Teams Gang Supervisor Relationship Specialty Start Date End Date Amna Richards DO [address] [place] [address] PCP - General Family Medicine 10/12/23 documented as of this encounter
--- OUTSIDE RECORDS SUMMARY | 2024-05-30 15:48 | XMS_ITS | Encounter Summary ---
Author Organization [employer] Address [address] [place] [address] 7t [place] [address] Care Team Providers Care Commercial Energy Auditor Name Role Phone Candace Quiñones MD Primary Care Pro vider Amna Richards DO Primary Care Provider + [phone] Reason for Visit * Reason Comments Med Refill Encounter Details Date Type Department Care Team (Late st Contact Info) Description 05/17/2023 Refill [facility] [address] [place] [address] Candace Quiñones MD [address] [place] [address] Fracture of vertebra due to osteoporosis, sequela [...] Description 06/02/2024 9:45 AM EDT Office Visit [facility] MEDICINE [address] [place] [address] Amna Richards DO [address] [place] [address] documented as of this encounter Visit Diagnoses Diagnosis Fracture of vertebra due to osteoporosis, sequela documented in this encounter Additional Health Concerns Assessment Noted Time PHQ-9 Depression Total Score: 11 023 3:01 PM EDT documented as of this encounter Care Teams Commercial Energy Auditor Relationship Specialty Start Date End Date Candace Quiñones MD [address] [place] [address] PCP - General Internal Medicine 07/24/22 10/11/23 Amna Richards DO [address] [place] [address] PCP - General Family Medicine 10/12/23 [facility] 2/20/25 documented as of this encounter
--- OUTSIDE RECORDS SUMMARY | 2024-05-30 15:48 | XMS_ITS | Continuity of Care Document ---
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 Confusi??n o habla poco odin ??? Dolor de thuy ??? P??rdida de memoria ??? P??rdida del conocimiento Espere hasta que se hayan karena todos dane s??ntomas y a que el proveedor le diga que puede retomar suactividad. Otro golpe en la thuy antes de que se haya recuperado totalmente del bc puede causarle warren lesi??n cerebral grave. ?? Visita de seguimiento Asista a las citas de seguimiento con álvarez proveedor de atenci??n m??dica en warren semana, o seg??n le hayan indicado. Es para asegurarse de que el hueso est?? recuper??ndose lisa. Si le hicieron radiograf??as o tomograf??as computarizadas,??le informar??n los resultados nuevos que puedan afectar álvarez atenci??n m??dica. ?? Cu??ndo buscar atenci??n m??dica Llame a álvarez proveedor de atenci??n m??dica de inmediato ante cualquiera de las siguientes situaciones: ??? Hinchaz??n o dolor en la kayy que empeora ??? Enrojecimiento, calor o supuraci??n en la tova lesionada ??? Fiebre de 100.4?F (38?C) o superior, o seg??n lo indicado por álvarez proveedor de ate nci??n m??dica ??? Escalofr??os ??? Visi??n doble ??? N??useas ?? Cu??ndo llamar al?? 911 Llame al 911 si tiene algo de lo siguiente: ??? V??mitos persistentes ??? Dolor de thuy intenso omareo ??? Empeoramiento del dolor de thuy o los mareos ??? Somnolencia inusual o imposibilidad dedespertarse mechelle de costumbre ??? Confusi??n o cambio en el comportamiento o el habla ??? Convulsiones o crisis epil??pticas? Last Reviewed Date: 2021 ?? [phone] [employer]. Todos los derechos reservados. Esta informaci??n no pretende sustituir la atenci??n m??dica profesional. S??lo álvarez m??dico puede diagnosticar y tratar un problema de hua. ?? Patient Care team information Care Team Personnel Name: Tari Goodwin RN Position: S RN Member Role: Primary Care Nurse Name: Amna Richards DO Position: [facility] Outreach Member Role: PCP Address: [address] [place] [address] Telecom: Name: Ashly Sahu RN Position: S RN Member Role: Primary Care Nurse Name: Janak Junior RN Position: S RN Member Role: Primary Care Nurse Name: Sowmya Aguirre RN Position: S RN Member Role: Primary Care Nurse Name: Amparo Eisenberg RN Position: [facility] RN Member Role: Primary Care Nurse Care Team Related Persons Name: TOY JACK Name: AMNA OLIVEIRA Insurance Providers Guarantor name: Health Plan Information #: 1 Payer: [facility] Member Number: [id number] Policy Number: NA Group Number: Health Plan Information #: 2 Payer: [facility] Member Number: [id number] Policy Number: Group Number: NA
--- OUTSIDE RECORDS SUMMARY | 2024-05-30 15:48 | XMS_ITS | Encounter Summary ---
Author Organization [employer] Address [address] [facility] [address]t [place] [address] Care Team Providers Care International Relations Professor Name Role Phone Amna Richards DO Primary Care Provider + [phone] Amna Richards DO Primary Care Provider [phone] Candace Quiñones MD Primary Care Pro vider Amna Richards DO Primary Care Provider [phone] Reason for Visit * Reason Comments Med Refill Encounter Details Date Type Department Care Team (Late st Contact Info) Description 06/26/2022 Refill [facility] MEDICINE [address] [place], [place] [phone] Linda Loya MD [address] [place], [place] [phone] Severe persistent asthma with acute exacerbation Social History Tobacco Use Types Packs/Day Years [...] suspected to have Coronavirus/COVID-19? No / Unsure 06/20/2022 10:38 AM EDT documented as of this encounter Plan of Treatment Upcoming Encounters Date Type Department Care Team (Late st Contact Info) Description 06/02/2024 9:45 AM EDT Office Visit [facility] [address] [place] [address] Amna Richards DO [address] [place] [address] documented as of this encounter Visit Diagnoses Diagnosis Severe persistent asthma with acute exacerbation documented in this encounter Additional Health Concerns Assessment Noted Time PHQ-9 Depression Total Score: 13 023 11:01 AM EDT documented as of this encounter Care Teams International Relations Professor Relationship Specialty Start Date End Date Amna Richards DO [address] [place] [address] PCP - General Family Medicine 03/19/18 07/20/22 Amna Richards DO [address] [place] [address] PCP - General Family Medicine 07/21/22 07/23/22 Candace Quiñones MD [address] [place] [address] PCP - General Internal Medicine 07/24/22 10/11/23 Amna Richards DO [address] [place] [address] PCP - General Family Medicine 10/12/23 [facility] 05/08/24 documented as of this encounter
--- OUTSIDE RECORDS SUMMARY | 2024-05-30 15:48 | XMS_ITS | Encounter Summary ---
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 * Telephone Encounter - Antonio Yoo - 01/29/2024 9:40 AM EST Tc from pt requesting to r/s visit on 01/14. documented in this encounter Plan of Treatment Upcoming Encounters Date Type Department Care Team (Late st Contact Info) Description 06/02/2024 9:45 AM EDT Office Visit [facility] [address] [place] [address] Amna Richards DO [address] [place], [place] [phone] documented as of this encounter Visit Diagnoses Not on filedocumented in this encounter Additional Health Concerns Assessment Noted Time PHQ-9 Depression Total Score: 11 024 1:53 PM EDT documented as of this encounter Care Teams Metal Baler Relationship Specialty Start Date End Date Amna Richards DO [address] [place] [address] PCP - General Family Medicine 10/12/23 [facility] 05/08/24 documented as of this encounter
--- OUTSIDE RECORDS SUMMARY | 2024-05-30 15:48 | XMS_ITS | Encounter Summary ---
Author Organization [employer] Address [address] [facility] 7t [place] [address] Care Team Providers Care Electronic Data Interchange Specialist Name Role Phone Candace Quiñones MD Primary Care Pro vider Amna Richards DO Primary Care Provider + [phone] Reason for Visit * Reason Onset Date Comments office notes and PFT 06/04/2023 Encounter Details Date Type Department Care Team (Late st Contact Info) Description 06/04/2023 Telephone [facility] MEDICINE [address] [place] [address] Candace Quiñones MD [address] [place], [place] [phone] office notes and PFT Social History Tobacco Use Types Packs/Day Years [...] * Telephone Encounter - Marni Henning - 06/04/2023 11:47 AM EDT Tc from Angela with pulmonary rehab requesting office notes and PFT to be faxed for them to schedule pt for an appt . documented in this encounter Plan of Treatment Upcoming Encounters Date Type Department Care Team (Late st Contact Info) Description 06/02/2024 9:45 AM EDT Office Visit [facility] MEDIC[facility] [address] [place] [address] Amna Richards DO [address] [place] [address] documented as of this encounter Visit Diagnoses Not on filedocumented in this encounter Additional Health Concerns Assessment Noted Time PHQ-9 Depression Total Score: 11 023 3:01 PM EDT documented as of this encounter Care Teams Electronic Data Interchange Specialist Relationship Specialty Start Date End Date Candace Quiñones MD [address] [place] [address] PCP - General Internal Medicine 07/24/22 10/11/23 Amna Richards DO [address] [place] [address] PCP - General Family Medicine 10/12/23 [facility] 05/08/24 documented as of this encounter
--- OUTSIDE RECORDS SUMMARY | 2024-05-30 15:48 | XMS_ITS | Encounter Summary ---
Author Organization [employer] Address [address] [facility] 7t [place] [address] Care Team Providers Care Receptionist Scheduler Name Role Phone Amna Richards DO Primary Care Provider + [phone] Reason for Visit * Reason Comments [facility] Encounter Details Date Type Department Care Team (Latest Contact Info) Description 05/02/2024 Patient Outreach [facility] MEDICINE [address] [place] [address] Amna Richards DO [address] [place] [address] Care Coordination ([facility] outreach) Social History Tobacco [...] the past 12 months, has t he [employer], gas, oil or water company threatened to [...] Progress Notes * Ginette Banda - 05/02/2024 9:33 AM EST CHW Ginette Banda placed outbound call to [facility] for discharge coordination as patient was admitted on 05/02/24. CHW was connected to patient's Jacquard Loom Weaver , CHW requested call back at [phone]. Patient's name, and confirmed. CHW to follow up within the next 2 days. documented in this encounter Plan of Treatment Upcoming Encounters Date Type Department Care Team (Late st Contact Info) Description 06/02/2024 9:45 AM EDT Office Visit [facility] MEDICINE [address] [place] [address] Amna Richards DO [address] [place] [address] documented as of this encounter Visit Diagnoses Not on filedocumented in this encounter Additional Health Concerns Assessment Noted Time PHQ-9 Depression Total Score: 11 024 1:53 PM EDT documented as of this encounter Care Teams Receptionist Scheduler Relationship Specialty Start Date End Date Amna Richards DO [address] [place] [address] PCP - General Family Medicine 10/12/23 documented as of this encounter
--- OUTSIDE RECORDS SUMMARY | 2024-05-30 15:48 | XMS_ITS | Encounter Summary ---
Author Organization [employer] Address [address] [facility] 7t [place] [address] Care Team Providers Care Finance Lead Name Role Phone Susie Amna Primary Care Provider + [phone] Encounter Details Date Type Department Care Team (Late st Contact Info) Description 01/25/2024 Orders Only [facility] [address] [place], [place] [phone] Brendon Davidson MD [address] [place] [address] Social History Tobacco Use Types Packs/Day Years [...] Description 06/02/2024 9:45 AM EDT Office Visit [facility] [address] [place] [address] Amna Richards DO [address] [place] [address] documented as of this encounter Visit Diagnoses Not on filedocumented in this encounter Additional Health Concerns Assessment Noted Time PHQ-9 Depression Total Score: 11 024 1:53 PM EDT documented as of this encounter Care Teams Finance Lead Relationship Specialty Start Date End Date Amna Richards DO [address] [place] [address] PCP - General Family Medicine 10/12/23 [facility] 05/08/24 documented as of this encounter
--- OUTSIDE RECORDS SUMMARY | 2024-05-30 15:48 | XMS_ITS | Continuity of Care Document ---
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 (SARS-CoV-2) by PCR - NEGATIVE???Bordetella Parapertussis by PCR - NEGATIVE Tissue Cult, Aerobic Results (05/02/2024) ???Aerobic Result 1 - Comment Tissue Cult, Anaerobic Results (05/02/2024) ???Anaerobic Result 1 - Comment Tissue Cult, Gram Stain Results (05/02/2024) ???Gram Stain Result 1 - Comment???Gram Stain Result 2 - Comment You will be contacted within 72 hours with your results. Allergies (NKA means No Known Allergies) ibuprofen Problems Active Problems??(6) Acute hypoxic respiratory failure?? ASTHMA?? Asthma?? COPD with asthma?? SAFETY?? Tobacco abuse?? Education Materials Below is the list of Educational Leaflet Providered with your Discharge Instructions. [employer] Patient Education - Facial Fracture?? [employer] Patient Education - Chronic Lung Disease: Preventing Lung Infections?? Valuables and Belongings I fully understand and agree that [facility] accepts no responsibility for all my personal property including clothing, toilet articles, radios, jewelry, dentures, hearing aids, rings, money, or any other property that is in my possession or is brought to me after admission. I understand certain valuables may be placed in a hospital safe for a short period of time. I understand that the hospital is not liable for loss or damage due to accident, fire, or other natural occurrence while said property is in the safe. I accept full responsibility for any personal property that I keep with me, and will not hold the hospital responsible in case of loss or disappearance. I acknowledge that i have been encouraged to send valuables and belongings home. ?? Review of Valuable and Belonging List: With family Date for Pt to Sign Valuables/Belongings: 05/02/24 16:32:00 ?? Other Discharge Information ? Pulmonary Rehab Status?? Pulmonary Rehab Discharge Status?? Respiratory Rate: 18 br/min ? Common Emergency Awareness Tips IS IT A STROKE? Act FAST and Check for these signs: FACE Does the face look uneven? ARM Does one arm drift down? SPEECH Does their speech sound strange? TIME Call at any sign of stroke ?? Heart Attack Signs Chest discomfort: Most heart attacks involve discomfort in the center of the chest and lasts more than a few minutes, or goes away and comes back. It can feel like uncomfortable pressure, squeezing, fullness or pain. Discomfort in upper body: Symptoms can include pain or discomfort in one or both arms, back, neck, jaw or stomach. Shortness of breath: With or without discomfort. Other signs: Breaking out in a cold sweat, nausea, or lightheaded. Remember, MINUTES DO MATTER. If you experience any of these heart attack warning signs, call to get immediate medical attention! ?? Smoking can increase your chances of developing chronic health problems and can cause harmful effects to other family members in your house. If you smoke, you are strongly encouraged to quit. Please call [facility] [employer] Link at [phone] or [phone] ([phone]) or log in to [email or web address] for referrals to smoking cessation programs. ?? 666 Suicide & Crisis Lifeline is available 09/10 if you or someone you know needs to find a reason to keep living. By calling 103 you'll be connected to a skilled, trained counselor at a crisis center in your area. INPATIENT DISCHARGE INSTRUCTIONS SIGNATURE PAGE ALDO HODGSON Location:[facility] Registration Date and Time:05/02/2024 08:02 [facility] Primary Care Physician: Amna Richards DO, Attending Physician: Nicolás IZAGUIRRE, Lupe Lee, I ALDO HODGSON, have received the above patient education materials/instructions and have verbalized understanding. If ambulance or transport services are being used I further acknowledge being given a choice of service. ?? If you need to contact me, please call me at this number: . Patient/Transaction Advisory Services Manager Name: Patient/Transaction Advisory Services Manager Signature: Relationship to Patient: Witness Name/Signature: Date: * Lucinda Malave MD: PERFORM Event Display: Patient Education Leaflets Authored Date: [id number] Facial Fracture ?? [id number] Fractura facial?? Tiene un hueso quebrado, o [...] senos paranasales y sangrado en la nariz.?? Shauna las primeras 24??horas despu??s de la fractura, quiz??s tenga hinchaz??n o hematomas en la tova o alrededor de los ojos. Un golpe susan en la kayy que rompa un hueso tambi??n puede causar warren conmoci??n cerebral u otra lesi??n cerebral m??s grave. Cuidados en el hogar ??? Use warren compresa de hielo sobre la tova lesionada por no m??s de 15??o??20??minutos por vez. Brenda esto cada 1 a 2??horas shauna las primeras 24 a 48??horas. Luego, ??radha [...] crujientes ni chiclosos. Comeralimentos blandos lo ayudar?? shauna las primeras dos o duane??semanas. ??? Si le dieron antibi??ticos para prevenir warren infecci??n, t??melos seg??n le hayan indicado hasta terminarlos por completo. ??? Si le sangra la nariz, si??ntese e incl??nese hacia adelante. Apri??tese las fosas nasales shauna??10 a 15??minutos.??Si el sangrado no se detiene, contin??e apretando las fosas nasales y llame asu proveedor de atenci??n m??dica.??Warren vez que se haya detenido el sangrado, no se suene la nariz shauna las 12??horas siguientes. Eso permitir?? que se forme un co??gulo resistente de tricia. No se hurgue la nariz. ?? Nota especial sobre las conmociones cerebrales Si hoy tuvo s??ntomas de conmoci??n cerebral, no brenda deportes ni cualquier otra actividad que pudiera [...] haya recuperado totalmente del bc puede causarle wraren lesi??n cerebral grave. ?? Visita de seguimiento [...] ??? Enrojecimiento, calor o supuraci??n en la zonalesionada ??? Fiebre de 100.4?F (38?C) o superior, o seg??n lo indicado por álvarez proveedor de atenci??n m??dica ??? Escalofr??os ??? Visi??n doble ??? [...] crisis epil??pticas? Last Reviewed Date: 2021 ?? [id number] [employer]. Todos los derechos reservados. Esta informaci??n no pretende sustituir la atenci??n m??dica profesional. S??lo álvarez m??dico puede diagnosticar y tratar un problema de hua. ?? * Lucinda Malave MD: PERFORM Event Display: Patient Education Leaflets Authored Date: [id number] Chronic Lung Disease: Preventing Lung Infections ?? [address]603 Enfermedad pulmonar cr??jay: prevenci??n de infecciones pulmonares Hay muchos tipos de enfermedad pulmonar cr??jay. Puede tener warren de las siguientes: ??? Enfermedad pulmonar obstructiva cr??jay (EPOC) ??? Bronquitis cr??jay ??? Enfisema ??? Fibrosis pulmonar ??? Sarcoidosis Si tiene warren enfermedad pulmonar cr??jay, es importante que se proteja de las infecciones respiratorias. Orion incluye resfriados, gripe e infecciones pulmonares mechelle la neumon??a. Estos tipos de infecciones pueden agravar álvarez enfermedad pulmonar cr??jay. Es muy dif??cil evitar enfermarse. Jennifer usted puede hacer algunas cosas para reducir el riesgo de infecciones. Consejos para evitar enfermedades Puede disminuir el riesgo de infecciones respiratorias con estos pasos: ??? Mantenga las isaiah limpias. L??vese las isaiah con frecuencia, incluso antes y despu??s de comer, despu??s de ir al ba??o y despu??s de toser, estornudar o sonarse la nariz. Si no puede lavarse, use desinfectante para isaiah que tenga al menos un 60??% de alcohol. Util??celo despu??s de tocar perillas, asas, teclados y cualquier otra cosa que otras personas hayan tocado. Luego, l??vese las isaiah en cuanto pueda. ??? L??veselas lisa. Cuando se lave las isaiah, use jab??n y agua corriente limpia. Restri??guelas lisa shauna al menos 20??segundos. Aseg??rese de lavarse el dorso de las isaiah, entre los dedos y debajo de las u??as. Enju??guese lisa las isaiah. S??quese las isaiah con toallas limpias o s??quelas con aire. ??? No se toque el venus. Si no tiene las isaiah limpias, mant??ngalas alejadas de la nariz y la boca.De lo contrario, los g??rmenes en las isaiah pueden ingresar a álvarez sistema respiratorio. ??? Reciba las vacunas recomendadas. Para prevenir la gripe, vac??nese contra la gripe todos los a??os. Puede conseguirla en el consultorio del proveedor de atenci??n m??dica, warren david de suministros m??dicos, warren farmacia o en álvarez lugar de trabajo. Deber??a aplicarse la vacuna antigripal shafer pronto mechelle la vacuna est?? disponible en álvarez ??long. Orion suele ser alrededor de septiembre cada a??o. Warren vacuna contra la neumon??a tambi??n puede ayudar a prevenir la neumon??a neumoc??cica. Hable con el proveedor de atenci??n m??dica sobre qu?? vacuna necesita, la cantidad de dosis y cu??ndo deber??a aplic??rsela. La vacuna contra la COVID-19 puede prevenir enfermedades graves causadas por el virus SARS-CoV-2. ??? Evite el contacto con personas enfermas. Evite en lo posible estar cerca de personas con resfriados o gripe. En la temporada de resfriados y de gripe, intente mantenerse alejado de lugares donde haya grandes concentraciones de personas. Estos pueden incluir centros de compras, cines y eventos sociales. ??? Deje de fumar. Si fuma, hable con el proveedor de atenci??n m??dica sobre c??mo obtener ayuda para dejar el h??bito. Fumar empeora álvarez enfermedad pulmonar. Adem??s, aumenta álvarez riesgo de tener infecciones. Evite tambi??n exponerse al humo que exhalan otras personas. Orion se conoce mechelle taba quismo pasivo. El tabaquismo pasivo tambi??n es peligroso y aumenta las probabilidades de tener unainfecci??n. ??? Use warren mascarilla. Usar warren mascarilla en lugares cerrados puede prevenir enfermedades respiratorias. Considere usar warren mascarilla cuando est?? en lugares muy concurridos shauna la temporada de resfriados y gripe. ?? Last Reviewed Date: 2021 ?? [id number] [employer]. Todos los derechos reservados. Esta informaci??n no pretende sustituir la atenci??n m??dica profesional. S??lo álvarez m??dico puede diagnosticar y tratar un problema de hua. ?? * Event Display: Provider Clarification Note Please click on pdf link to open report Patient Care team information Care Team Personnel Name: Tari Goodwin RN Position: [facility] RN Member Role: Primary Care Nurse Name: Rajeev Rodriguez RN Position: [facility] RN Member Role: Primary Care Nurse Name: Amna Richards DO Position: [facility] Outreach Member Role: PCP Address: [address] [place] [address] Telecom: Name: Ashly Sahu RN Position: S RN Member Role: Primary Care Nurse Name: Janak Junior RN Position: S RN Member Role: Primary Care Nurse Name: Claudia Villeda RN Position: [facility] RN Member Role: Primary Care Nurse Name: Sowmya Aguirre RN Position: S RN Member Role: Primary Care Nurse Name: Amparo Eisenberg RN Position: S RN Member Role: Primary Care Nurse Care Team Related Persons Name: TOY JACK Name: OLIVEIRA, AMNA Insurance Providers Guarantor name: NA Health Plan Information #: 1 Payer: [employer] Member Number: [id number] Policy Number: THOMAS Group Number: [id number] Health Plan Information #: 2 Payer: [facility] Member Number: [id number] Policy Number: THOMAS Group Number: [id number]
--- OUTSIDE RECORDS SUMMARY | 2024-05-30 15:48 | XMS_ITS | Encounter Summary ---
Author Organization [employer] Address [address] [facility] [address] [place] [address] Care Team Providers Care Biological Photographer Name Role Phone Candace Quiñones MD Primary Care Pro vider Amna Richards DO Primary Care Provider + [phone] Encounter Details Date Type Department Care Team (Late st Contact Info) Description 02/28/2023 Orders Only [facility] [address] [place], [place] [phone] Brendon Davidson MD [address] [place] [address] Social History Tobacco Use Types Packs/Day Years [...] is your housing situation today? I have sandrawill granados 01/03/[address] you [...] as of this encounter Miscellaneous Notes * Result Encounter Note - Candace Palmer MD - 02/28/2023 2:00 PM EST Please call patient to advise to come to already scheduled apt with me to go over abnormal labs Thanks documented in this encounter Plan of Treatment Upcoming Encounters Date Type Department Care Team (Late st Contact Info) Description 06/02/2024 9:45 AM EDT Office Visit [facility] MEDICINE [address] [place] [address] Amna Richards DO [address] [place] [address] documented as of this encounter Procedures Procedure Name Priority Date/Time Associated Diagnosis Comments PROTEIN ELECTROPHORESIS AND KAPPA/LAMBDA LIGHT CHAINS, SERUM Routine 02/28/2023 9:10 AM EST IMMUNOFIXATION, URINE Routine 02/28/2023 9:10 AM EST TESTOSTERONE, FREE (DIALYSIS) AND TOTAL,MS Routine 02/28/2023 9:10 AM EST documented in this encounter Results * Testosterone, Free (Dialysis) And Total, MS (02/28/2023 9:10 AM EST) Testosterone, Total 494 250 - 1100 ng/dL [facility] Comment:For additional infor leora, please refer tohttp://education.[employer]/faq/WrlvkGdgzanfnohouGQFEYFELM462(This link is being provided for informational/educational purposes only.)This test was developed and its analytical performancecharacteristics have been determined by [employer], [place]. It hasnot been cleared or approved by the U.S. Food and DrugAdministration. This assay has been validated pursuantto the CLIA regulations and is used for clinicalpurposes. Testosterone, Free 65.7 35.0 - 155.0 pg/mL [facility] Comment:This test was develo ped and its analytical performancecharacteristics have been determined by [employer] [place]. It hasnot been cleared or approved by the U.S. Food and DrugAdministration. This assay has been validated pursuantto the CLIA regulations and is used for clinicalpurposes.THIS TEST WAS PERFORMED AT:[facility] [place] [address]IKOGPYKCHAZ COLÓN MD,PHD 02/28/2023 9:10 AM EST 02/28/2023 9:22 AM EST us Generic External Data Provider LAB BLOOD ORDERAB LES Final Result [facility] [address] [place] [phone] * (ABNORMAL) Protein Electrophoresis and [place]/[employer] (02/28/2023 9:10 AM EST) Prot Elec - Total Protein 7.0 6.1 - 8.1 g/dL [facility] Prot Elec - Albumin 4.0 3.8 - 4.8 g/dL [facility] Prot Elec - Alpha1 0.4(A) 0.2 - 0.3 g/dL [facility] Prot Elec - Alpha2 0.9 0.5 - 0.9 g/dL [facility] Prot Elec - Beta 1 0.4 0.4 - 0.6 g/dL [facility] Prot Elec - Beta 2 0.5 0.2 - 0.5 g/dL [facility] Prot Elec - Gamma 0.8 0.8 - 1.7 g/dL [facility] PES - Abn Protein Band 1 TNP [facility] PES-Abn Protein Band 2 [facility] PES-Abn Protein Band 3 [facility] Prot Elec - Interpretation SEE NOTE [facility] Comment:Alpha-1 globulin inc rease noted.THIS TEST WAS PERFORMED AT:[facility] [address] [id number] BELL MD 02/28/2023 9:10 AM EST 02/28/2023 9:22 AM EST Generic External Data Provider LAB BLOOD ORDERAB LES Final Result Performing Organization Address [facility] Co de Phone Number [facility] [address] [place] [phone] * Immunofixation (MICHAEL), Urine (02/28/2023 9:10 AM EST) MICHAEL Interpretation [facility] Comment:No monoclonal protei ns detected.THIS TEST WAS PERFORMED AT:[facility] [address] [id number] BELL MD 02/28/2023 9:10 AM EST 02/28/2023 10:14 AM EST us Generic External Data Provider LAB URINE ORDERAB LES Final Result Performing Organization Address [facility] Co de Phone Number [facility] [address] [place] [phone] documented in this encounter Visit Diagnoses Not on filedocumented in this encounter Additional Health Concerns Assessment Noted Time PHQ-9 Depression Total Score: 11 023 3:01 PM EDT documented as of this encounter Care Teams Biological Photographer Relationship Specialty Start Date End Date Candace Quiñones MD [address] [place] [address] PCP - General Internal Medicine 07/24/22 10/11/23 Amna Richards DO [address] [place] [address] PCP - General Family Medicine 10/12/23 [facility] 05/08/24 documented as of this encounter
--- OUTSIDE RECORDS SUMMARY | 2024-05-30 15:48 | XMS_ITS | Encounter Summary ---
Author Organization [employer] Address [address] [facility] [address] [place] [address] Care Team Providers Care Devops Consultant Name Role Phone Candace Quiñones MD Primary Care Pro vider Amna Richards DO Primary Care Provider + [phone] Reason for Visit * Reason Onset Date Comments Appointment Request 05/09/2023 Encounter Details Date Type Department Care Team ([facility] st Contact Info) Description 05/09/2023 Telephone [facility] [address] [place] [address] Candace Quiñones MD [address] [place] [address] Appointment Request Social History Tobacco Use Types [...] encounter Miscellaneous Notes * Telephone Encounter - Keanu Ireland - 05/09/2023 10:52 AM EST Tc from patient calling to reschedule appt from 04/10 and would preferably like a afternoon appt dueto insomnia documented in this encounter Plan of Treatment Upcoming Encounters Date Type Department Care Team (Late st Contact Info) Description 06/02/2024 9:45 AM EDT Office Visit [facility] [address] [place] [address] Amna Richards DO [address] [place] [address] documented as of this encounter Visit Diagnoses Not on filedocumented in this encounter Additional Health Concerns Assessment Noted Time PHQ-9 Depression Total Score: 11 023 3:01 PM EDT documented as of this encounter Care Teams Devops Consultant Relationship Specialty Start Date End Date Candace Quiñones MD [address] [place] [address] PCP - General Internal Medicine 07/24/22 10/11/23 Amna Richards DO [address] [place] [phone] PCP - General Family Medicine 10/12/23 [facility] 05/08/24 documented as of this encounter
--- OUTSIDE RECORDS SUMMARY | 2024-05-30 15:48 | XMS_ITS | Encounter Summary ---
Author Organization [employer] Address [address] [place] [address] [address] [place] [address] Care Team Providers Care Monotypist Name Role Phone Candace Quiñones MD Primary Care Pro vider Amna Richards DO Primary Care Provider + [phone] Reason for Visit * Reason Onset Date Comments Appointment Request 09/07/2022 Encounter Details Date Type Department Care Team ([facility] st Contact Info) Description 09/07/2022 Telephone [facility] [address] [place] [address] Candace Quiñones MD [address] [place] [address] Appointment Request Social History Tobacco Use Types [...] encounter Miscellaneous Notes * Telephone Encounter - Libia Urbano - 09/07/2022 9:39 AM EDT Tc from 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 Pt states he had a recent surgery and cannot attend. Please contact pt at [phone] Martiniquais Speaker documented in this encounter Plan of Treatment Upcoming Encounters Date Type Department Care Team (Late st Contact Info) Description 06/02/2024 9:45 AM EDT Office Visit [facility] [address] [place] [phone] Amna Richards DO [address] [place] [phone] documented as of this encounter Visit Diagnoses Not on filedocumented in this encounter Additional Health Concerns Assessment Noted Time PHQ-9 Depression Total Score: 13 023 11:01 AM EDT documented as of this encounter Care Teams Monotypist Relationship Specialty Start Date End Date Candace Quiñones MD [address] [place] [phone] PCP - General Internal Medicine 07/24/22 10/11/23 Amna Richards DO [address] [place] [address] PCP - General Family Medicine 10/12/23 [facility] 05/08/24 documented as of this encounter
--- OUTSIDE RECORDS SUMMARY | 2024-05-30 15:48 | XMS_ITS | Encounter Summary ---
Author Organization [employer] Address [address] [place] [address] [address] [place] [address] Care Team Providers Care Client Support Representative Name Role Phone Candace Quiñones MD Primary Care Pro vider Amna Richards DO Primary Care Provider + [phone] Reason for Visit * Reason Comments Med Refill Encounter Details Date Type Department Care Team (Late st Contact Info) Description 11/17/2022 Refill [facility] [address] [place] [address] Candace Quiñones MD [address] [place] [address] Fracture of vertebra due to osteoporosis, sequela [...] Description 06/02/2024 9:45 AM EDT Office Visit [facility] [address] [place] [address] Amna Richards DO [address] [place] [address] documented as of this encounter Visit Diagnoses Diagnosis Fracture of vertebra due to osteoporosis, sequela documented in this encounter Additional Health Concerns Assessment Noted Time PHQ-9 Depression Total Score: 11 023 3:01 PM EDT documented as of this encounter Care Teams Client Support Representative Relationship Specialty Start Date End Date Candace Quiñones MD [address] [place] [phone] PCP - General Internal Medicine 07/24/22 10/11/23 Amna Richards DO [address] [place] [address] PCP - General Family Medicine 10/12/23 [facility] 05/08/24 documented as of this encounter
--- OUTSIDE RECORDS SUMMARY | 2024-05-30 15:48 | XMS_ITS | Encounter Summary ---
Author Organization [employer] Address [address] [place] [address] 7t [place] [address] Care Team Providers Care Parquetry Floor Layer Name Role Phone Amna Richards DO Primary Care Provider + [phone] Amna Richards DO Primary Care Provider [phone] Candace Quiñones MD Primary Care Pro vider Amna Richards DO Primary Care Provider + [phone] Reason for Visit * Reason Onset Date Comments Appointment Request 07/12/2022 Encounter Details Date Type Department Care Team (Late st Contact Info) Description 07/12/2022 Telephone [facility] 230 [place], [place] [phone] Amna Richards DO 230 [place], [place] [phone] Appointment Request Social History Tobacco Use Types [...] suspected to have Coronavirus/COVID-19? No / Unsure 07/12/2022 2:10 PM EDT documented as of this encounter Miscellaneous Notes * Telephone Encounter - Giulia Jacob RN - 07/12/2022 11:50 AM EDT Call to Aldo Breaux, reports having one month of SOB. Per pt had infection in lungs one month ago and seen at [facility]. Pe rpt went to [facility] last night after having coughing fit. Per pt states chestx-ray done and was sent home told has nothing wrong. Per pt having productive cough. Pt also havingpain in back and chest with coughing. Per pt also having wheezing. Pt was supposed to have ongoing treatment and follow up after [facility] Discharge. Pt never had HDF appt. Seen at [facility] last night. No meds prescribed per pt. Pt agrees to sick visit with Dr. Singer today at 2:15pm. MH active. Sent to team to obtain discharge notes for [facility] visit yesterday. Protocol Used: Asthma Attack (Adult) Protocol-Based Disposition: See in Office or Video Visit Today Video visit offer not recorded Positive Triage Question: * Continuous (nonstop) coughing that keeps patient from working or sleeping, and not improved after2 or 3 inhaler or nebulizer treatments given 20 minutes apart * All higher-acuity triage questions were negative Care Advice Discussed: * Reassurance and Education - Mild Asthma Attack * Asthma Attack * Reasons To Call Back - You become worse * Telephone Encounter - Libia Urbano - 07/12/2022 11:38 AM EDT Symptoms: Breathing Trouble, Lethargic (Tired) Outcome: Schedule an urgent appointment (within 1 hour) or talk to a nurse or provider soon Reason: Caller denied all higher acuity questions The caller accepted this outcome Please contact pt at [phone] Azeri Speaker documented in this encounter Plan of Treatment Upcoming Encounters Date Type Department Care Team ([facility] st Contact Info) Description 06/02/2024 9:45 AM EDT Office Visit [facility] 230 [place] [address] Amna Richards DO [address] [place] [address] documented as of this encounter Visit Diagnoses Not on filedocumented in this encounter Additional Health Concerns Assessment Noted Time PHQ-9 Depression Total Score: 13 023 11:01 AM EDT documented as of this encounter Care Teams Parquetry Floor Layer Relationship Specialty Start Date End Date Amna Richards DO [facility] [place] [address] PCP - General Family Medicine 03/19/18 07/20/22 Amna Richards DO [facility] [place] [address] PCP - General Family Medicine 07/21/22 07/23/22 Candace Quiñones MD [facility] [place] [address] PCP - General Internal Medicine 07/24/22 10/11/23 Amna Richards DO [facility] [place] [address] PCP - General Family Medicine 10/12/23 [facility] 05/08/24 documented as of this encounter
--- OUTSIDE RECORDS SUMMARY | 2024-05-30 15:48 | XMS_ITS | Encounter Summary ---
Author Organization [employer] Address [address] [place] [address] 7t [place] [address] Care Team Providers Care Thermal Engineer Name Role Phone Candace Quiñones MD Primary Care Pro vider Amna Richards DO Primary Care Provider + [phone] Reason for Visit * Reason Onset Date Comments Appointment Request 12/21/2022 Encounter Details Date Type Department Care Team ([facility] st Contact Info) Description 12/21/2022 Telephone [facility] MED[facility]INE 230 [place] [address] Candace Quiñones MD 230 [place] [address] Appointment Request Social History Tobacco Use Types [...] encounter Miscellaneous Notes * Telephone Encounter - Dana Turk - 12/21/2022 8:09 AM EDT Tc from patient requesting to r/s DEPUTY ADMINISTRATOR appt from 12/21/22. Details:DEPUTY ADMINISTRATOR NV; utox Tramadol lab conf documented in this encounter Plan of Treatment Upcoming Encounters Date Type Department Care Team (Late st Contact Info) Description 06/02/2024 9:45 AM EDT Office Visit [facility] 230 [place] [address] Amna Richards DO 230 [place] [address] documented as of this encounter Visit Diagnoses Not on filedocumented in this encounter Additional Health Concerns Assessment Noted Time PHQ-9 Depression Total Score: 11 023 3:01 PM EDT documented as of this encounter Care Teams Thermal Engineer Relationship Specialty Start Date End Date Candace Quiñones MD [address] [place] [address] PCP - General Internal Medicine 07/24/22 10/11/23 Amna Richards DO [address] [place] [address] PCP - General Family Medicine 10/12/23 [facility] 05/08/24 documented as of this encounter
--- OUTSIDE RECORDS SUMMARY | 2024-05-30 15:48 | XMS_ITS | Encounter Summary ---
Author Organization [employer] Address [address] [facility] 7t [place] [address] Care Team Providers Care Police Lieutenant Patrol Name Role Phone Amna Richards DO Primary Care Provider + [phone] Encounter Details Date Type Department Care Team ([facility] st Contact Info) Description 05/01/2024 Telephone [facility] MED[facility]INE [address] [place] [address] Amna Richards DO 230 [place], [place] [phone] Social History Tobacco Use Types Packs/Day Years [...] 06/02/2024 9:45 AM EDT Office Visit [facility] MED[facility]INE [address] [place] [address] Amna Richards DO 230 [place] [address] documented as of this encounter Visit Diagnoses Not on filedocumented in this encounter Additional Health Concerns Assessment Noted Time PHQ-9 Depression Total Score: 11 024 1:53 PM EDT documented as of this encounter Care Teams Police Lieutenant Patrol Relationship Specialty Start Date End Date Amna Richards DO 230 [place] [address] PCP - General Family Medicine 10/12/23 [facility] 05/08/24 documented as of this encounter
--- OUTSIDE RECORDS SUMMARY | 2024-05-30 15:48 | XMS_ITS | Encounter Summary ---
Author Organization [employer] Address [address] [facility] 7t [place] [address] Care Team Providers Care Fish Boning Machine Feeder Name Role Phone Amna Richards DO Primary Care Provider + [phone] Reason for Visit * Reason Onset Date Comments Appointment Request 05/01/2024 Encounter Details Date Type Department Care Team ([facility] st Contact Info) Description 05/01/2024 Telephone [facility] 230 [place], [place] [phone] Amna Richards DO 230 [place] [address] Appointment Request Social History Tobacco Use Types [...] encounter Miscellaneous Notes * Telephone Encounter - Karen Davis MA - 05/14/2024 9:44 AM EST Spoke with patient schedule follow up medication appt. 05/16/24 at 9:15am. * Telephone Encounter - Karen Davis MA - 05/01/2024 9:51 AM EST Spoke with patient requesting a sooner appt. Due to not taken Tramadol for 1 month. Patient states has been vomiting and nausea For the past week. I told patient to go to Walk in clinic patient decline stated was there not to long ago and was not prescribe nothing. Patient is schedule to see you 06/02/24 at 11am. Please advise? documented in this encounter Plan of Treatment Upcoming Encounters Date Type Department Care Team (Late st Contact Info) Description 06/02/2024 9:45 AM EDT Office Visit [facility] 230 [place] [address] Amna Richards DO 230 [place] [address] documented as of this encounter Visit Diagnoses Not on filedocumented in this encounter Additional Health Concerns Assessment Noted Time PHQ-9 Depression Total Score: 11 09/02/ 024 1:53 PM EDT documented as of this encounter Care Teams Fish Boning Machine Feeder Relationship Specialty Start Date End Date Amna Richards DO 230 [place] [address] PCP - General Family Medicine 10/12/23 [facility] 05/08/24 documented as of this encounter
--- OUTSIDE RECORDS SUMMARY | 2024-05-30 15:48 | XMS_ITS | Encounter Summary ---
Author Organization [employer] Address [address] [facility] 7t [place] [address] Care Team Providers Care Tripe Finisher Name Role Phone Susie Amna Primary Care Provider + [phone] Reason for Visit * Reason Comments Med Refill Encounter Details Date Type Department Care Team ([facility] st Contact Info) Description 04/20/2024 Refill [facility] 230 [place], [place] [phone] Bong Sahni MD 230 [place], [place] [phone] Bronchitis Social History Tobacco Use Types Packs/Day Years [...] EDT Office Visit [facility] [address] [place] [address] Amna Richards DO 230 [place] [address] documented as of this encounter Visit Diagnoses Diagnosis Bronchitis Bronchitis, not specified as acute or chronic documented in this encounter Additional Health Concerns Assessment Noted Time PHQ-9 Depression Total Score: 11 024 1:53 PM EDT documented as of this encounter Care Teams Tripe Finisher Relationship Specialty Start Date End Date Amna Richards DO [address] [place] [address] PCP - General Family Medicine 10/12/23 [facility] 05/08/24 documented as of this encounter
--- OUTSIDE RECORDS SUMMARY | 2024-05-30 15:49 | XMS_ITS | Encounter Summary ---
Author Organization [employer] Address [address] [facility] 7t [place] [address] Care Team Providers Care Senior Data Developer Name Role Phone Amna Richards DO Primary Care Provider + [phone] Reason for Visit * Reason Comments Med Refill Encounter Details Date Type Department Care Team ([facility] st Contact Info) Description 05/16/2024 Refill [facility] MEDICINE 230 [place], [place] [phone] Amna Richards DO 230 [place], [place] [phone] Social History Tobacco Use Types Packs/Day Years [...] Description 06/02/2024 9:45 AM EDT Office Visit [facility] MEDICINE [address] [place] [address] Amna Richards DO 230 [place] [address] documented as of this encounter Visit Diagnoses Not on filedocumented in this encounter Additional Health Concerns Assessment Noted Time PHQ-9 Depression Total Score: 11 024 1:53 PM EDT documented as of this encounter Care Teams Senior Data Developer Relationship Specialty Start Date End Date Amna Richards DO 230 [place] [address] PCP - General Family Medicine 10/12/23 [facility] 05/08/24 documented as of this encounter
--- OUTSIDE RECORDS SUMMARY | 2024-05-30 15:49 | XMS_ITS | Encounter Summary ---
Author Organization [employer] Address [address] [facility] 7t [place] [address] Care Team Providers Care Shop Firer/Fireman Name Role Phone SusieAmna Primary Care Provider + [phone] Encounter Details Date Type Department Care Team (Latest Contact Info) Description 05/16/2024 Travel Social History Tobacco Use Types Packs/Day [...] Description 06/02/2024 9:45 AM EDT Office Visit [facility] MEDICINE 230 [place] [address] Amna Richards DO 230 [place] [address] documented as of this encounter Visit Diagnoses Not on filedocumented in this encounter Additional Health Concerns Assessment Noted Time PHQ-9 Depression Total Score: 11 024 1:53 PM EDT documented as of this encounter Care Teams Shop Firer/Fireman Relationship Specialty Start Date End Date Amna Richards DO 230 [place] [address] PCP - General Family Medicine 10/12/23 [facility] 05/08/24 documented as of this encounter
--- OUTSIDE RECORDS SUMMARY | 2024-05-30 15:49 | XMS_ITS | Encounter Summary ---
Author Organization [employer] Address [address] [facility] 7t [place] [address] Care Team Providers Care Dental Floss Packer Name Role Phone Amna Richards DO Primary Care Provider + [phone] Amna Richards DO Primary Care Provider [phone] Candace Quiñones MD Primary Care Pro vider Amna Richards DO Primary Care Provider + [phone] Reason for Visit * Reason Onset Date Comments Med Refill 05/31/2022 Encounter Details Date Type Department Care Team (Late st Contact Info) Description 05/31/2022 Telephone [facility] MEDICINE 230 [place], [place] [phone] Amna Richards DO 230 [place], [place] [phone] Med Refill Social History Tobacco Use Types [...] suspected to have Coronavirus/COVID-19? No / Unsure 05/23/2022 1:20 PM EST documented as of this encounter Miscellaneous Notes * Telephone Encounter - Najma Henning - 06/12/2022 11:15 AM EDT CC Najma Henning, placed outbound call to patient for HDF outreach. Patient was admitted to [facility] on 06/08/2022 and was discharged on 06/08/2022 Patient was admitted for diagnosis of pneumonia CC placing call to offer patient with an HDF appointment with provider. No answer at this time. Patient's name and were not confirmed. CC left detailed message educating patient on importance of following up with provider following an inpatient admission. Provided contact information requesting a call back in order to schedule the HDF appointment. Patient educated via voicemail on extended clinic hours onMondays and Wednesdays, and Walk-In Urgent Care Located in [facility] of [facility]. Patient provided with after-hours line for [facility], , which offer night time triage service and option to transfer to marketing communications associate provider if needed. CC will request Discharge summaries to scan into chart. CC will place additional outreach call within 2-5 business days. * Telephone Encounter - Amna Ulloa LPN - 05/31/2022 10:11 AM EDT Please review albuterol solution not listed in [employer] or Epic. * Telephone Encounter - Libia Urbano - 05/31/2022 9:32 AM EDT Tc from pt requesting med refill on Nebulizer medication. Albuterol Sulfate Please sent to [facility] [address] [facility] documented in this encounter Plan of Treatment Upcoming Encounters Date Type Department Care Team ([facility] st Contact Info) Description 06/02/2024 9:45 AM EDT Office Visit [facility] MEDICINE 230 [place] [address] Amna Richards DO [address] [place] [address] documented as of this encounter Visit Diagnoses Not on filedocumented in this encounter Additional Health Concerns Assessment Noted Time PHQ-9 Depression Total Score: 11 023 12:04 PM EST documented as of this encounter Care Teams Dental Floss Packer Relationship Specialty Start Date End Date Amna Richards DO [address] [place] [address] PCP - General Family Medicine 03/19/18 07/20/22 Amna Richards DO [address] [place] [address] PCP - General Family Medicine 07/21/22 07/23/22 Candace Quiñones MD [address] [place] [address] PCP - General Internal Medicine 07/24/22 10/11/23 Amna Richards DO [address] [place] [address] PCP - General Family Medicine 10/12/23 [facility] 05/08/24 documented as of this encounter
--- OUTSIDE RECORDS SUMMARY | 2024-05-30 15:49 | XMS_ITS | Encounter Summary ---
Author Organization [employer] Address [address] [facility] 7t [place] [address] Care Team Providers Care Loom Fixer Supervisor Name Role Phone Amna Richards DO Primary Care Provider + [phone] Reason for Visit * Reason Comments Med Refill Encounter Details Date Type Department Care Team ([facility] st Contact Info) Description 05/22/2024 Refill [facility] MEDICINE 230 [place], [place] [phone] Amna Richards DO 230 [place], [place] [phone] Social History Tobacco Use Types Packs/Day Years [...] Description 06/02/2024 9:45 AM EDT Office Visit [facility] MEDICINE [address] [place] [address] Amna Richards DO 230 [place] [address] documented as of this encounter Visit Diagnoses Not on filedocumented in this encounter Additional Health Concerns Assessment Noted Time PHQ-9 Depression Total Score: 11 024 1:53 PM EDT documented as of this encounter Care Teams Loom Fixer Supervisor Relationship Specialty Start Date End Date Amna Richards DO 230 [place] [address] PCP - General Family Medicine 10/12/23 [facility] 05/08/24 documented as of this encounter
--- OUTSIDE RECORDS SUMMARY | 2024-05-30 15:49 | XMS_ITS | Encounter Summary ---
Author Organization [employer] [facility] Address [address] [place] [address] 7t [place] [address] Care Team Providers Care Actuarial Clerk Name Role Phone Amna Richards DO Primary Care Provider + [phone] Reason for Referral * Consultation (Routine) - Pending Review Specialty Diagnoses / Procedures Referred By Contnoemi t Referred To Contact Endocrinology Diagnoses Type 2 diabetes mellitus without complication, without long-term current use of insulin (CMS/HCC) Amna Richards DO 230 [place] [address] Phone: tel: fax: Referral ID Status Reason Start Date Expiration Date Visits Requested Visits Authorized [id number] Pending Review Specialty Services Required 05/26/2024 05/26/2025 1 1 Encounter Details Date Type Department Care Team (Late st Contact Info) Description 05/26/2024 Orders Only [facility] MED[facility]INE 230 [place] [address] Amna Richards DO 230 [place], [place] [phone] Type 2 diabetes mellitus without complication, without long-term current use of insulin (CMS/HCC) (Primary Dx) Social History Tobacco Use Types Packs/Day Years [...] as of this encounter Progress Notes * Amna Richards DO - 05/26/2024 2:53 PM EDT Endo referral placed as requested. documented in this encounter Plan of Treatment Upcoming Encounters Date Type Department Care Team (Late st Contact Info) Description 06/02/2024 9:45 AM EDT Office Visit [facility] MEDICINE [address] [place] [address] Amna Richards DO 230 [facility] [place] [address] Scheduled Referrals Name Type Priority Associated Diagnoses Order Schedule Referral to Endocrinology Outpatient Referral Routine Type 2 diabetes mellitus without complication, without long-term current use of insulin (CMS/HCC) Expected: 05/26/2024 (Approximate), Expires: 05/26/2025 documented as of this encounter Visit Diagnoses Diagnosis Type 2 diabetes mellitus without complication, without long-term current use of insulin (CMS/HCC)- Primary documented in this encounter Additional Health Concerns Assessment Noted Time PHQ-9 Depression Total Score: 11 024 1:53 PM EDT documented as of this encounter Care Teams Actuarial Clerk Relationship Specialty Start Date End Date Amna Richards DO [address] [facility] [place] [address] PCP - General Family Medicine 10/12/23 [facility] 05/08/24 documented as of this encounter
--- OUTSIDE RECORDS SUMMARY | 2024-05-30 15:49 | XMS_ITS | Encounter Summary ---
Author Organization [employer] Address [address] [facility] 7t [place] [address] Care Team Providers Care Entry Level Manufacturing Engineer Name Role Phone Amna Richards DO Primary Care Provider + [phone] Reason for Visit * Reason Onset Date Comments Referral 05/23/2024 Encounter Details Date Type Department Care Team ([facility] st Contact Info) Description 05/23/2024 Telephone [facility] MEDICINE 230 [place], [place] [phone] Amna Richards DO 230 [place] [address] Referral Social History Tobacco Use Types Packs/Day Years [...] Telephone Encounter - Veronica Goetz RN - 05/23/2024 4:16 PM EST TC placed to patient [phone] in regards to below message. Patient did not answer, RN left VM requesting CB to red team nurses. Patient to f/u PRN. * Telephone Encounter - Melissa Newman - 05/23/2024 10:19 AM EST Tc from pt stating that he doesn't have a DrBryan who can help him with Diabetes and requests a referral for [facility] - Dr. Padilla [address] [place] [address] Dr BRISCOE [address] [place] [address]. documented in this encounter Plan of Treatment Upcoming Encounters Date Type Department Care Team (Late st Contact Info) Description 06/02/2024 9:45 AM EDT Office Visit [facility] MEDICINE [address] [place] [address] Amna Richards DO 230 [place] [address] documented as of this encounter Visit Diagnoses Not on filedocumented in this encounter Additional Health Concerns Assessment Noted Time PHQ-9 Depression Total Score: 11 024 1:53 PM EDT documented as of this encounter Care Teams Entry Level Manufacturing Engineer Relationship Specialty Start Date End Date Amna Richards DO 230 [place] [address] PCP - General Family Medicine 10/12/23 [facility] 05/08/24 documented as of this encounter
--- OUTSIDE RECORDS SUMMARY | 2024-05-30 15:49 | XMS_ITS | Encounter Summary ---
Author Organization [employer] Address [address] [facility] 7t [place] [address] Care Team Providers Care Buccaro Name Role Phone Susie Amna Primary Care Provider + [phone] Encounter Details Date Type Department Care Team ([facility] st Contact Info) Description 05/30/2024 Population Health Risk Score [facility] ([facility]) Department [address] [facility] [address] [place] [address] Provider, Population Health Generic Social History Tobacco Use Types Packs/Day Years [...] 9:45 AM EDT Office Visit [facility] MEDICINE 230 [place] [address] Amna Richards DO 230 [place] [address] documented as of this encounter Visit Diagnoses Not on filedocumented in this encounter Additional Health Concerns Assessment Noted Time PHQ-9 Depression Total Score: 11 024 1:53 PM EDT documented as of this encounter Care Teams Buccaro Relationship Specialty Start Date End Date Amna Richards DO 230 [place] [address] PCP - General Family Medicine 10/12/23 [facility] 05/08/24 documented as of this encounter
--- OUTSIDE RECORDS SUMMARY | 2024-05-30 15:49 | XMS_ITS | Encounter Summary ---
Author Organization [employer] Address [address] [facility] 7t [place] [address] Care Team Providers Care Highwall Drill Operator Name Role Phone Amna Richards DO Primary Care Provider + [phone] Reason for Visit * Reason Onset Date Comments Nurse Triage 05/21/2024 Encounter Details Date Type Department Care Team ([facility] st Contact Info) Description 05/21/2024 Telephone [facility] MEDICINE [address] [place] [address] Amna Richards DO [address] [place] [address] Nurse Triage Social History Tobacco Use Types Packs/Day Years [...] Telephone Encounter - Giulia Jacob RN - 05/21/2024 3:03 PM EST No medical claims examiner needed as this property underwriter speaks Austrian. Call returned to Aldo Breaux for triage below. No answer LVM to return call to [facility] triage line [phone]. * Telephone Encounter - Melissa Newman - 05/21/2024 1:25 PM EST Symptom: Itching - No Rash Outcome: Schedule an urgent appointment (within 4 hours) or talk to a nurse or provider soon Reason: Severe itching now The caller accepted this outcome. [phone] telugu documented in this encounter Plan of Treatment Upcoming Encounters Date Type Department Care Team (Late st Contact Info) Description 06/02/2024 9:45 AM EDT Office Visit [facility] MEDICINE [address] [place] [address] Amna Richards DO [address] [place] [address] documented as of this encounter Visit Diagnoses Not on filedocumented in this encounter Additional Health Concerns Assessment Noted Time PHQ-9 Depression Total Score: 11 09/02/ 024 1:53 PM EDT documented as of this encounter Care Teams Highwall Drill Operator Relationship Specialty Start Date End Date Amna Richards DO [address] [place] [address] PCP - General Family Medicine 10/12/23 [facility] 05/08/24 documented as of this encounter
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
--- OUTSIDE RECORDS SUMMARY | 2024-05-30 15:49 | XMS_ITS | Encounter Summary ---
Author Organization [employer] Address [address] [facility] 7t [place] [address] Care Team Providers Care Embedded Firmware Engineer Name Role Phone Amna Richards DO Primary Care Provider + [phone] Reason for Visit * Reason Comments [facility] call outreach Encounter Details Date Type Department Care Team (Latest Contact Info) Description 05/28/2024 Patient Outreach [facility] MEDICINE [address] [place] [address] Amna Richards DO [address] [place] [address] Care Coordination [facility] telephone call outreach) Social History [...] encounter Progress Notes * Ginette Banda - 05/28/2024 2:46 PM EDT CHW Ginette Banda, placed outbound call to patient in regard to offer services. CHW introducing herself from [facility] CM Department with CHW's name, department and direct contact number requesting call back. Will re-attempt to contact within 5 days. and address not confirmed. documented in this encounter Plan of Treatment Upcoming Encounters Date Type Department Care Team (Late st Contact Info) Description 06/02/2024 9:45 AM EDT Office Visit [facility] MEDICINE [address] [place] [address] Amna Richards, [address] [place] [address] documented as of this encounter Visit Diagnoses Not on filedocumented in this encounter Additional Health Concerns Assessment Noted Time PHQ-9 Depression Total Score: 11 024 1:53 PM EDT documented as of this encounter Care Teams Embedded Firmware Engineer Relationship Specialty Start Date End Date Amna Richards DO [address] [place] [address] PCP - General Family Medicine 10/12/23 [facility] 05/08/24 documented as of this encounter
--- OUTSIDE RECORDS SUMMARY | 2024-05-30 15:49 | XMS_ITS | Encounter Summary ---
Author Organization [employer] Address [address] [place] [address] 7t [place] [address] Care Team Providers Care C 40A Crew Chief Name Role Phone Amna Richards DO Primary Care Provider [phone] Reason for Referral * Consultation (Routine) - Canceled Specialty Diagnoses / Procedures Referred By Contnoemi t Referred To Contact Occupational Therapy Diagnoses Chronic pain of right hand Amna Richards DO [address] [place] [address] Phone: tel: fax: Referral ID Status Reason Start Date Expiration Date Visits Requested Visits Authorized [id number] Canceled Specialty Services Required 05/16/2024 05/16/2025 1 1 Encounter Details Date Type Department Care Team (Late st Contact Info) Description 05/16/2024 9:15 AM EST Office Visit [facility] MEDICINE [address] [place] [address] Amna Richards DO [address] [place] [address] Chronic pain of right hand (Primary Dx); Type 2 diabetes mellitus without complication, without long-term current use of insulin ([facility]) Social History Tobacco Use Types Packs/Day Years [...] housing situation today? I have sandrawill granados 08/06/[address] you [...] AM EDT documented as of this encounter Last Filed Vital Signs Vital Sign Reading [...] Mass Index 26.95 05/16/2024 9:24 AM EST documented in this encounter Plan of Treatment Upcoming Encounters Date Type Department Care Team (Late st Contact Info) Description 06/02/2024 9:45 AM EDT Office Visit [facility] MEDICINE [address] [place] [address] Amna Richards DO [address] [place] [address] Scheduled Referrals Name Type Priority Associated Diagnoses Order Schedule Referral to Occupational Therapy Outpatient Referral Routine Chronic pain of right hand Expected: 05/16/2024 (Approximate), Expires: 05/16/2025 documented as of this encounter Procedures Procedure Name Priority Date/Time Associated Diagnosis Comments POCT GLYCATED HEMOGLOBIN, TOTAL Routine 05/16/2024 9:30 AM EST Type 2 diabetes mellitus without complication, without long-term current use of insulin ([facility]) POCT GLUCOSE Routine 05/16/2024 9:29 AM EST Type 2 diabetes mellitus without complication, without long-term current use of insulin ([facility]) documented in this encounter Results * (ABNORMAL) POCT HGB A1C (05/16/2024 9:30 AM EST) Hemoglobin A1C 8.5(A) 4.0 - 6.0 % QC Media Lot # [id number] Lot# Expiration Date 6 Blood 05/16/2024 9:30 AM EST Amna Richards DO POINT OF CARE TEST ENTER/LOU T ORDERABLES Final Result * (ABNORMAL) POCT Glucose (05/16/2024 9:29 AM EST) Glucose Blood, POC 226(A) 60 - 200 mg/dL QC Media Lot # [id number] Lot# Expiration Date [id number] Blood Capillary blood specimen / Unknown 05/16/2024 9:29 AM EST Amna Richards DO POINT OF CARE TEST ENTER/LOU T ORDERABLES Final Result documented in this encounter Visit Diagnoses Diagnosis Chronic pain of right hand- Primary Type 2 diabetes mellitus without complication, without long-term current use of insulin ([facility]) documented in this encounter Additional Health Concerns Assessment Noted Time PHQ-9 Depression Total Score: 11 024 1:53 PM EDT documented as of this encounter Care Teams C 40A Crew Chief Relationship Specialty Start Date End Date Amna Richards DO [address] [place] [address] PCP - General Family Medicine 10/12/23 [facility] 05/08/24 documented as of this encounter
--- OUTSIDE RECORDS SUMMARY | 2024-05-30 15:49 | XMS_ITS | Encounter Summary ---
Author Organization [employer] Address 75 [facility] 7t [place] [address] Care Team Providers Care Electrical Accessories Assembler Name Role Phone Amna Richards DO Primary Care Provider + [phone] Reason for Visit * Reason Onset Date Comments Med Refill 05/27/2024 Encounter Details Date Type Department Care Team (Late st Contact Info) Description 05/27/[address] [facility] MEDICINE [address] [place], [place] [phone] Amna Richards DO [address] [place], [place] [phone] Social History Tobacco Use Types Packs/Day Years [...] * Telephone Encounter - Antonio Yoo - 05/27/2024 10:05 AM EDT TC from pt requesting medication refill. Medications needing refill : Eliquis 5 MG tablet To be sent to: [facility]/pharmacy [address] [place] [address] documented in this encounter Plan of Treatment Upcoming Encounters Date Type Department Care Team (Late st Contact Info) Description 06/02/2024 9:45 AM EDT Office Visit [facility] MEDICINE [address] [place] [address] Amna Richards DO [address] [place] [address] documented as of this encounter Visit Diagnoses Not on filedocumented in this encounter Additional Health Concerns Assessment Noted Time PHQ-9 Depression Total Score: 11 024 1:53 PM EDT documented as of this encounter Care Teams Electrical Accessories Assembler Relationship Specialty Start Date End Date Amna Richards DO [address] [place] [address] PCP - General Family Medicine 10/12/23 [facility] 05/08/24 documented as of this encounter
== END 2024-05-30 14:38 | disposition home or self-care (01) ==
LOC: HO.HPS 14:07
PROVIDERS: PCP Student in an Organized Health Care Education/Training Program; Visit Provider Hospitalist
DX: J44.1 Chronic obstructive pulmonary disease with (acute) exacerbation (principal); F17.210 Nicotine dependence, cigarettes, uncomplicated; J98.11 Atelectasis; R07.9 Chest pain, unspecified; J18.9 Pneumonia, unspecified organism
CPT/HCPCS: 99215

== ENCOUNTER → 2024-05-30 14:07 | Outpatient (BNVA) | payer MEDICAID, SELFPAY | PROVIDERS: PCP Student in an Organized Health Care Education/Training Program; Visit Provider Hospitalist | DX: J44.89 Other specified chronic obstructive pulmonary disease (principal); J18.9 Pneumonia, unspecified organism; J98.11 Atelectasis; F17.210 Nicotine dependence, cigarettes, uncomplicated; R07.9 Chest pain, unspecified; Z79.52 Long term (current) use of systemic steroids | CPT/HCPCS: 99212 ==

== ENCOUNTER 2024-06-03 14:55 | Outpatient (AMB) | payer MEDICAID, SELFPAY ==
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
[2024-06-03 15:06] VITALS: BP 144/72; PULSE 102; O2SAT 95; BMI 24.0
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
--- OUTSIDE RECORDS SUMMARY | 2024-06-03 17:48 | XMS_ITS | Encounter Summary ---
Author Organization [employer] Address [address] [place] [address] 7t [place] [address] Care Team Providers Care Character Impersonator Name Role Phone Candace Quiñones MD Primary Care Pro vider Amna Richards DO Primary Care Provider + [phone] Reason for Visit * Reason Onset Date Comments Appointment Request 11/21/2022 Encounter Details Date Type Department Care Team ([facility] st Contact Info) Description 11/21/2022 Telephone [facility] MEDICINE [address] [place] [address] Candace Quiñones MD [address] [place] [address] Appointment Request Social History Tobacco Use Types [...] Miscellaneous Notes * Telephone Encounter - Marni Milady - 11/21/2022 9:35 AM EDT Tc from pt requesting to r/s missed appt 11/14/22 . documented in this encounter Plan of Treatment Upcoming Encounters Date Type Department Care Team (Late st Contact Info) Description 06/04/2024 2:00 PM EDT Clinical Support [facility] MEDICINE [address] [place] [address] Ester Chatman, JACOB documented as of this encounter Visit Diagnoses Not on filedocumented in this encounter Additional Health Concerns Assessment Noted Time PHQ-9 Depression Total Score: 11 023 3:01 PM EDT documented as of this encounter Care Teams Character Impersonator Relationship Specialty Start Date End Date Candace Quiñones MD [address] [place] [address] PCP - General Internal Medicine 07/24/22 10/11/23 Amna Richards DO [address] [place] [address] PCP - General Family Medicine 10/12/23 [facility] 05/08/24 documented as of this encounter
--- OUTSIDE RECORDS SUMMARY | 2024-06-03 17:48 | XMS_ITS | Encounter Summary ---
Author Organization [employer] Address [address] [facility] 7t [place] [address] Care Team Providers Care Supply Chain Intern Name Role Phone Susie Amna Primary Care Provider + [phone] Encounter Details Date Type Department Care Team (Late st Contact Info) Description 01/25/2024 Orders Only [facility] [address] [place], [place] [phone] Brendon Davidson MD [address] [place] [address] Social History Tobacco Use Types Packs/Day Years [...] Description 06/04/2024 2:00 PM EDT Clinical Support [facility] MEDICINE [address] [place] [address] Ester Chatman, RN documented as of this encounter Visit Diagnoses Not on filedocumented in this encounter Additional Health Concerns Assessment Noted Time PHQ-9 Depression Total Score: 11 024 1:53 PM EDT documented as of this encounter Care Teams Supply Chain Intern Relationship Specialty Start Date End Date Amna Richards DO [address] [place] [address] PCP - General Family Medicine 10/12/23 [facility] 05/08/24 documented as of this encounter
--- OUTSIDE RECORDS SUMMARY | 2024-06-03 17:48 | XMS_ITS | Encounter Summary ---
Author Organization [employer] Address [address] [place] [address] 7t [place] [address] Care Team Providers Care Compensation/Benefits Specialist Name Role Phone Candace Quiñones MD Primary Care Pro vider Amna Richards DO Primary Care Provider + [phone] Reason for Visit * Reason Onset Date Comments Appointment Request 12/21/2022 Encounter Details Date Type Department Care Team ([facility] st Contact Info) Description 12/21/[address] [facility] [address] [place] [address] Candace Quiñones MD 230 [place] [address] Appointment Request Social History Tobacco Use Types [...] EDT Tc from patient requesting to r/s SENIOR JAVA SOFTWARE ENGINEER appt from 12/21/22. Details:SENIOR JAVA SOFTWARE ENGINEER [place]; utox Tramadol lab conf documented in this encounter Plan of Treatment Upcoming Encounters Date Type Department Care Team (Late st Contact Info) Description 06/04/2024 2:00 PM EDT Clinical Support [facility] [address] [place] [address] Ester Chatman RN documented as of this encounter Visit Diagnoses Not on filedocumented in this encounter Additional Health Concerns Assessment Noted Time PHQ-9 Depression Total Score: 11 023 3:01 PM EDT documented as of this encounter Care Teams Compensation/Benefits Specialist Relationship Specialty Start Date End Date Candace Quiñones MD [address] [place] [address] PCP - General Internal Medicine 07/24/22 10/11/23 Amna Richards DO [address] [place] [address] PCP - General Family Medicine 10/12/23 [facility] 05/08/24 documented as of this encounter
--- OUTSIDE RECORDS SUMMARY | 2024-06-03 17:48 | XMS_ITS | Encounter Summary ---
Author Organization [employer] Address [address] [facility] 7t [place] [address] Care Team Providers Care Engraver Optical Frames Name Role Phone Amna Richards DO Primary Care Provider + [phone] Reason for Visit * Reason Onset Date Comments Appointment Request 05/01/2024 Encounter Details Date Type Department Care Team ([facility] st Contact Info) Description 05/01/2024 Telephone [facility] 230 [place], [place] [phone] Amna Richards DO 230 [place] [address] Appointment Request Social History Tobacco Use Types [...] Description 06/04/2024 2:00 PM EDT Clinical Support [address] [address] [place], Ester, RN documented as of this encounter Visit Diagnoses Not on filedocumented in this encounter Additional Health Concerns Assessment Noted Time PHQ-9 Depression Total Score: 11 024 1:53 PM EDT documented as of this encounter Care Teams Engraver Optical Frames Relationship Specialty Start Date End Date Amna Richards DO 230 [place] [address] PCP - General Family Medicine 10/12/23 [facility] 05/08/24 documented as of this encounter
--- OUTSIDE RECORDS SUMMARY | 2024-06-03 17:48 | XMS_ITS | Encounter Summary ---
Author Organization [employer] Address [address] [place] [address] 7t [place] [address] Care Team Providers Care Vehicle Washer Name Role Phone Candace Quiñones MD Primary Care Pro vider Amna Richards DO Primary Care Provider + [phone] Reason for Visit * Reason Comments Med Change Request Encounter Details Date Type Department Care Team ([facility] st Contact Info) Description 08/21/2022 Refill [facility] MED[facility]INE 230 [place] [address] Candace Quiñones MD 230 [place] [address] Social History Tobacco Use Types Packs/Day Years [...] Description 06/04/2024 2:00 PM EDT Clinical Support [facility] [address] [place] [address] Ester Chatman, RN documented as of this encounter Visit Diagnoses Not on filedocumented in this encounter Additional Health Concerns Assessment Noted Time PHQ-9 Depression Total Score: 13 023 11:01 AM EDT documented as of this encounter Care Teams Vehicle Washer Relationship Specialty Start Date End Date Candace Quiñones MD 230 [place] [address] PCP - General Internal Medicine 07/24/22 10/11/23 Amna Richards DO [address] [place] [address] PCP - General Family Medicine 10/12/23 [facility] 05/08/24 documented as of this encounter
--- OUTSIDE RECORDS SUMMARY | 2024-06-03 17:48 | XMS_ITS | Encounter Summary ---
Author Organization [employer] Address [address] [place] [address] 7t [place] [address] Care Team Providers Care Appeals Assistant Name Role Phone Candace Quiñones MD Primary Care Pro vider Amna Richards DO Primary Care Provider + [phone] Reason for Visit * Reason Comments Med Refill Encounter Details Date Type Department Care Team (Late st Contact Info) Description 05/17/2023 Refill [facility] 230 [place] [address] Candace Quiñones MD 230 [place] [address] Fracture of vertebra due to osteoporosis, sequela [...] Description 06/04/2024 2:00 PM EDT Clinical Support [facility] [address] [place] [address] Ester Chatman RN documented as of this encounter Visit Diagnoses Diagnosis Fracture of vertebra due to osteoporosis, sequela documented in this encounter Additional Health Concerns Assessment Noted Time PHQ-9 Depression Total Score: 11 023 3:01 PM EDT documented as of this encounter Care Teams Appeals Assistant Relationship Specialty Start Date End Date Candace Quiñones MD [address] [place] [address] PCP - General Internal Medicine 07/24/22 10/11/23 Amna Richards DO [address] [place] [address] PCP - General Family Medicine 10/12/23 [facility] 05/08/24 documented as of this encounter
--- OUTSIDE RECORDS SUMMARY | 2024-06-03 17:48 | XMS_ITS | Encounter Summary ---
Author Organization [employer] Address [address] [facility] 7t [place] [address] Care Team Providers Care Fuse Maker Name Role Phone Candace Quiñones MD Primary Care Pro vider Amna Richards DO Primary Care Provider + [phone] Reason for Visit * Reason Onset Date Comments Appointment Request 05/09/2023 Encounter Details Date Type Department Care Team ([facility] st Contact Info) Description 05/09/2023 Telephone [facility]ICINE 230 [place] [address] Candace Quiñones MD 230 [place] [address] Appointment Request Social History Tobacco Use Types [...] is your housing situation today? I have sadnra granados 01/03/[address] you [...] Description 06/04/2024 2:00 PM EDT Clinical Support [facility] 230 [place] [address] Ester Chatman RN documented as of this encounter Visit Diagnoses Not on filedocumented in this encounter Additional Health Concerns Assessment Noted Time PHQ-9 Depression Total Score: 11 023 3:01 PM EDT documented as of this encounter Care Teams Fuse Maker Relationship Specialty Start Date End Date Candace Quiñones MD 230 [place] [address] PCP - General Internal Medicine 07/24/22 10/11/23 Amna Richards DO [address] [place] [address] [place] [address] PCP - General Family Medicine 10/12/23 [facility] 05/08/24 documented as of this encounter
--- OUTSIDE RECORDS SUMMARY | 2024-06-03 17:48 | XMS_ITS | Encounter Summary ---
Author Organization [employer] Address [address] [facility] 7t [place] [address] Care Team Providers Care Battery Repairer Name Role Phone Amna Richards DO Primary Care Provider + [phone] Encounter Details Date Type Department Care Team ([facility] st Contact Info) Description 05/01/2024 Telephone [facility] MED[facility]INE 230 [place] [address] Amna Richards DO 230 [place], [place] [phone] Social History Tobacco Use Types Packs/Day Years [...] Description 06/04/2024 2:00 PM EDT Clinical Support [facility] [address] [place] [address] Ester Chatman, RN documented as of this encounter Visit Diagnoses Not on filedocumented in this encounter Additional Health Concerns Assessment Noted Time PHQ-9 Depression Total Score: 11 024 1:53 PM EDT documented as of this encounter Care Teams Battery Repairer Relationship Specialty Start Date End Date Amna Richards DO 230 [place] [address] PCP - General Family Medicine 10/12/23 [facility] 05/08/24 documented as of this encounter
--- OUTSIDE RECORDS SUMMARY | 2024-06-03 17:48 | XMS_ITS | Encounter Summary ---
Author Organization [employer] Address [address] [place] [address] 7t [place] [address] Care Team Providers Care Miniature Set Builder Name Role Phone Amna Richards DO Primary Care Provider + [phone] Amna Richards DO Primary Care Provider [phone] Candace Quiñones MD Primary Care Pro vider Amna Richards DO Primary Care Provider + [phone] Reason for Visit * Reason Onset Date Comments Med Refill 06/15/2022 Encounter Details Date Type Department Care Team (Late st Contact Info) Description 06/15/2022 Telephone [facility] MEDICINE 230 [place], [place] [phone] Amna Richards DO 230 [place], [place] [phone] Med Refill Social History Tobacco Use Types [...] States if it can be sent to [facility] pharmacy due to cvc not having them in stock at this time . Pt also informed if tablets can be the oval not nunam iqua . documented in this encounter Plan of Treatment Upcoming Encounters Date Type Department Care Team (Late st Contact Info) Description 06/04/2024 2:00 PM EDT Clinical Support [facility]INE [address] [place] [address] Ester Chatman RN documented as of this encounter Visit Diagnoses Not on filedocumented in this encounter Additional Health Concerns Assessment Noted Time PHQ-9 Depression Total Score: 11 023 12:04 PM EST documented as of this encounter Care Teams Miniature Set Builder Relationship Specialty Start Date End Date Amna Richards DO [address] [place] [address] PCP - General Family Medicine 03/19/18 07/20/22 Amna Richards DO [address] [place] [address] PCP - General Family Medicine 07/21/22 07/23/22 Candace Quiñones MD [address] [place] [address] PCP - General Internal Medicine 07/24/22 10/11/23 Amna Richards DO [address] [place] [address] PCP - General Family Medicine 10/12/23 [facility] 05/08/24 documented as of this encounter
--- OUTSIDE RECORDS SUMMARY | 2024-06-03 17:48 | XMS_ITS | Encounter Summary ---
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 MEDICINE 230 [place] [address] Candace Quiñones MD 230 [place] [address] TYPEWRITER REPAIRER Social History Tobacco Use Types Packs/Day Years [...] is your housing situation today? I have sandar granados 01/03/[address] you [...] Tc from pt calling in regards to TYPEWRITER REPAIRER. Pt stated TYPEWRITER REPAIRER has not been paid for about 4 weeks due to needing approval from pcp. Pt was transferred back from [facility] and stated he spoke with [facility] and theyinformed pt pcp would need to contact them regarding TYPEWRITER REPAIRER services and from there get in contact with program to prove pt does require TYPEWRITER REPAIRER services. If any questions please contact pt at [phone]. documented in this encounter Plan of Treatment Upcoming Encounters Date Type Department Care Team (Late st Contact Info) Description 06/04/2024 2:00 PM EDT Clinical Support [facility] MEDICINE 230 [place] [address] Ester Chatman RN documented as of this encounter Visit Diagnoses Not on filedocumented in this encounter Additional Health Concerns Assessment Noted Time PHQ-9 Depression Total Score: 11 023 3:01 PM EDT documented as of this encounter Care Teams Relief Master Relationship Specialty Start Date End Date Candace Quiñones MD 230 [place] [address] PCP - General Internal Medicine 07/24/22 10/11/23 Amna Richards DO [address] [place] [address] PCP - General Family Medicine 10/12/23 [facility] 05/08/24 documented as of this encounter
--- OUTSIDE RECORDS SUMMARY | 2024-06-03 17:48 | XMS_ITS | Encounter Summary ---
Author Organization [employer] Address [address] [place] [address] 7t [place] [address] Care Team Providers Care Church Secretary Name Role Phone Candace Quiñones MD Primary Care Pro vider Amna Richards DO Primary Care Provider + [phone] Reason for Visit * Reason Onset Date Comments Appointment Request 09/07/2022 Encounter Details Date Type Department Care Team ([facility] st Contact Info) Description 09/07/2022 Telephone [facility] 230 [place] [address] Candace Quiñones MD 230 [place] [address] Appointment Request Social History Tobacco Use Types [...] requesting to r/s appt for 09/15/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 Pt states he had a recent surgery and cannot attend. Please contact pt at [phone] Thai Speaker documented in this encounter Plan of Treatment Upcoming Encounters Date Type Department Care Team (Late st Contact Info) Description 06/04/2024 2:00 PM EDT Clinical Support [facility]INE [address] [place] [address] Ester Chatman RN documented as of this encounter Visit Diagnoses Not on filedocumented in this encounter Additional Health Concerns Assessment Noted Time PHQ-9 Depression Total Score: 13 023 11:01 AM EDT documented as of this encounter Care Teams Church Secretary Relationship Specialty Start Date End Date Candace Quiñones MD [address] [place] [address] PCP - General Internal Medicine 07/24/22 10/11/23 Amna Richards DO [address] [place] [address] PCP - General Family Medicine 10/12/23 [facility] 05/08/24 documented as of this encounter
--- OUTSIDE RECORDS SUMMARY | 2024-06-03 17:48 | XMS_ITS | Clinical Summary ---
Author Organization [facility] Address [address] [place] [address] Care Team Providers Care Material Expediter Name Role Phone Amna Richards Primary Care Provider [phone] Medical History Medical History Date Comments Tobacco [...] Documents on File Type Date Recorded Patient Biomathematician Expl anation Health Care Decision (hx) 06/24/2017 AD MCCANN DIRECTIVE Health Care Decision (hx) 06/24/2017 AD MCCANN DIRECTIVE Health Care Decision (hx) 06/24/2017 AD MCCANN DIRECTIVE Health Care Decision (hx) 06/24/2017 AD MCCANN DIRECTIVE Health Care Decision (hx) 06/24/2017 AD MCCANN DIRECTIVE Care Teams Material Expediter Relationship Specialty Start Date End Date Amna Richards DO [address] [place] [address] PCP - General Internal Medicine 06/20/17
--- OUTSIDE RECORDS SUMMARY | 2024-06-03 17:48 | XMS_ITS | Encounter Summary ---
Author Organization [employer] Address [address] [facility] 7t [place] [address] Care Team Providers Care Ramp Lead Name Role Phone Amna Richards DO Primary Care Provider + [phone] Reason for Visit * Reason Onset Date Comments Medication Question 05/09/2024 Encounter Details Date Type Department Care Team ([facility] st Contact Info) Description 05/09/2024 Refill [facility]INE 230 [place], [place] [phone] Amna Richards DO 230 [place], [place] [phone] Social History Tobacco Use Types Packs/Day Years [...] 05/09/2024 10:46 AM EST TC returned to [facility] [phone] who is requesting a med refill on diclofenac gel. RN will pend to covering provider. [facility] also reports the patient has amitriptyline and tramadol which have a medication interaction. [facility] needs approval to give both to the patient d/t interaction. RN advised A, RN would discuss with covering provider and return call to [facility]. RN called pharmacy who reports medication interaction between Amitriptyline and tramadol is a Level2 interaction due to increased serotonin syndrome, increased respiratory depression and potential hypotension. Please review and advise if okay to administer both medications. * Telephone Encounter - Antonio Yoo - 05/09/2024 8:53 AM EST Tc from [facility] with [facility] requesting a call back to Discuss Medication Voltaren and Amytryptiline and Tramadol with Nurse or PCP. Contact [facility] at [phone] documented in this encounter Plan of Treatment Upcoming Encounters Date Type Department Care Team (Late st Contact Info) Description 06/04/2024 2:00 PM EDT Clinical Support [facility] 230 [place] [address] Ester Chatman, RN documented as of this encounter Visit Diagnoses Not on filedocumented in this encounter Additional Health Concerns Assessment Noted Time PHQ-9 Depression Total Score: 11 024 1:53 PM EDT documented as of this encounter Care Teams Ramp Lead Relationship Specialty Start Date End Date Amna Richards DO 230 [place] [address] PCP - General Family Medicine 10/12/23 [facility] 05/08/24 documented as of this encounter
--- OUTSIDE RECORDS SUMMARY | 2024-06-03 17:48 | XMS_ITS | Encounter Summary ---
Author Organization [employer] Address [address] [facility] 7t [place] [address] Care Team Providers Care Quill Fixer Name Role Phone Candace Quiñones MD Primary Care Pro vider Amna Richards DO Primary Care Provider + [phone] Reason for Visit * Reason Onset Date Comments office notes and PFT 06/04/2023 Encounter Details Date Type Department Care Team (Late st Contact Info) Description 06/04/2023 Telephone [facility] 230 [place] [address] Candace Quiñones MD 230 [place], [place] [address] office notes and PFT Social History Tobacco [...] Description 06/04/2024 2:00 PM EDT Clinical Support [facility] [address] [place] [address] Ester Chatman RN documented as of this encounter Visit Diagnoses Not on filedocumented in this encounter Additional Health Concerns Assessment Noted Time PHQ-9 Depression Total Score: 11 023 3:01 PM EDT documented as of this encounter Care Teams Quill Fixer Relationship Specialty Start Date End Date Candace Quiñones MD [address] [place] [address] PCP - General Internal Medicine 07/24/22 10/11/23 Amna Richards DO [address] [place] [address] PCP - General Family Medicine 10/12/23 [facility] 05/08/24 documented as of this encounter
--- OUTSIDE RECORDS SUMMARY | 2024-06-03 17:48 | XMS_ITS | Encounter Summary ---
Author Organization [employer] Address [address] [facility] 7t [place] [address] Care Team Providers Care Highway Traffic Control Technician Name Role Phone Amna Richards DO Primary Care Provider [phone] Reason for Visit * Reason Onset Date Comments Reschedule TRAIN DIRECTOR RV 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 01/15/2402/2024 Encounter Details Date Type Department Care Team ([facility] st Contact Info) Description 01/29/2024 Telephone [facility] MEDICINE 230 [place] [address] Amna Richards DO 230 [place], [place] [phone] Reschedule TRAIN DIRECTOR RV 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 01/15/24 Social History [...] the past 12 months, has t he [employer] gas, oil or water [employer] [place] threatened to shut off services in your [...] Description 06/04/2024 2:00 PM EDT Clinical Support [facility]INE [address] [place] [address] Ester Chatman, RN documented as of this encounter Visit Diagnoses Not on filedocumented in this encounter Additional Health Concerns Assessment Noted Time PHQ-9 Depression Total Score: 11 024 1:53 PM EDT documented as of this encounter Care Teams Highway Traffic Control Technician Relationship Specialty Start Date End Date Amna Richards DO [address] [place] [address] PCP - General Family Medicine 10/12/23 [facility] 05/08/24 documented as of this encounter
--- OUTSIDE RECORDS SUMMARY | 2024-06-03 17:48 | XMS_ITS | Encounter Summary ---
Author Organization [employer] Address [address] [facility] 7t [place] [address] Care Team Providers Care Cone Treater Name Role Phone Amna Richards DO Primary Care Provider + [phone] Reason for Visit * Reason Comments Care Coordination [facility] call outreach Encounter Details Date Type Department Care Team (Latest Contact Info) Description 05/07/[address] [facility] MEDICINE 230 [place] [address] Amna Richards DO 230 [place] [address] Care Coordination ([facility] telephone call outreach ) Social History [...] CHW Ginette Banda placed outbound call to [facility] for discharge coordination as patient was admitted on 05/02/24. CHW was connect to patient's Grid Maker , CHW requested call back at [phone]. Patient's name, and confirmed. CHW to follow up within the next 2 days. documented in this encounter Plan of Treatment Upcoming Encounters Date Type Department Care Team (Late st Contact Info) Description 06/04/2024 2:00 PM EDT Clinical Support [facility] MEDICINE 230 [place] [address] Ester Chatman RN documented as of this encounter Visit Diagnoses Not on filedocumented in this encounter Additional Health Concerns Assessment Noted Time PHQ-9 Depression Total Score: 11 024 1:53 PM EDT documented as of this encounter Care Teams Cone Treater Relationship Specialty Start Date End Date Amna Richards DO 230 [place] [address] PCP - General Family Medicine 10/12/23 documented as of this encounter
--- OUTSIDE RECORDS SUMMARY | 2024-06-03 17:48 | XMS_ITS | Encounter Summary ---
Author Organization [employer] Address [address] [facility] 7t [place] [address] Care Team Providers Care Industrial Boilermaker Name Role Phone Candace Quiñones MD Primary Care Pro vider Amna Richards DO Primary Care Provider + [phone] Encounter Details Date Type Department Care Team (Late st Contact Info) Description 09/13/2023 Community Care Management [facility] MEDICINE 230 [place] [address] Candace Quiñones MD 230 [place], [place] [phone] Social History Tobacco Use Types Packs/Day Years [...] Description 06/04/2024 2:00 PM EDT Clinical Support [facility] MEDICINE [address] [place] [address] Ester Chatmna RN documented as of this encounter Visit Diagnoses Not on filedocumented in this encounter Additional Health Concerns Assessment Noted Time PHQ-9 Depression Total Score: 11 024 1:53 PM EDT documented as of this encounter Care Teams Industrial Boilermaker Relationship Specialty Start Date End Date Candace Quiñones MD [address] [place] [address] PCP - General Internal Medicine 07/24/22 10/11/23 Amna Richards DO [address] [place] [address] PCP - General Family Medicine 10/12/23 [facility] 05/08/24 documented as of this encounter
--- OUTSIDE RECORDS SUMMARY | 2024-06-03 17:48 | XMS_ITS | Encounter Summary ---
Author Organization [employer] Address [address] [facility] 7t [place] [address] Care Team Providers Care Cereal Chemist Name Role Phone Candace Quiñones MD Primary Care Pro vider Amna Richards DO Primary Care Provider + [phone] Reason for Visit * Reason Onset Date Comments Med Refill 03/20/2023 Encounter Details Date Type Department Care Team (Late st Contact Info) Description 03/20/2023 Telephone [facility] [address] [place] [address] Candace Quiñones MD [address] [place], [place] [phone] Med Refill Social History Tobacco Use Types [...] * Telephone Encounter - Kwadwo Elizabeth - 03/20/2023 12:09 PM EST TC from pt requesting medication refill. Medications needing refill : traMADol (Ultram) 50 MG tablet To be sent to: [facility]/pharmacy #[id number] documented in this encounter Plan of Treatment Upcoming Encounters Date Type Department Care Team (Late st Contact Info) Description 06/04/2024 2:00 PM EDT Clinical Support [facility] [address] [place] [address] Ester Chatman RN documented as of this encounter Visit Diagnoses Not on filedocumented in this encounter Additional Health Concerns Assessment Noted Time PHQ-9 Depression Total Score: 11 023 3:01 PM EDT documented as of this encounter Care Teams Cereal Chemist Relationship Specialty Start Date End Date Candace Quiñones MD [address] [place] [address] PCP - General Internal Medicine 07/24/22 10/11/23 Amna Richards DO 230 [place] [address] PCP - General Family Medicine 10/12/23 [facility] 05/08/24 documented as of this encounter
--- OUTSIDE RECORDS SUMMARY | 2024-06-03 17:48 | XMS_ITS | Encounter Summary ---
Author Organization [employer] Address [address] [place] [address] 7t [place] [address] Care Team Providers Care Enterostomal Therapy Nurse Name Role Phone Candace Quiñones MD Primary Care Pro vider Amna Richards DO Primary Care Provider + [phone] Reason for Visit * Reason Onset Date Comments Medication Question 11/23/2022 Encounter Details Date Type Department Care Team ([facility] st Contact Info) Description 11/23/2022 Telephone [facility] MEDICINE [address] [place] [address] Candace Quiñones MD [address] [place] [address] Medication Question Social History Tobacco Use Types [...] * Telephone Encounter - Marni Milady - 11/23/2022 4:07 PM EDT Tc from pt requesting to speak to someone regarding his traMADol (Ultram) 50 MG tablet . documented in this encounter Plan of Treatment Upcoming Encounters Date Type Department Care Team (Late st Contact Info) Description 06/04/2024 2:00 PM EDT Clinical Support [facility] MEDICINE [address] [place] [address] Ester Chatman, RN documented as of this encounter Visit Diagnoses Not on filedocumented in this encounter Additional Health Concerns Assessment Noted Time PHQ-9 Depression Total Score: 11 023 3:01 PM EDT documented as of this encounter Care Teams Enterostomal Therapy Nurse Relationship Specialty Start Date End Date Candace Quiñones MD [address] [place] [address] PCP - General Internal Medicine 07/24/22 10/11/23 Amna Richards DO [address] [place] [address] PCP - General Family Medicine 10/12/23 [facility] 05/08/24 documented as of this encounter
--- OUTSIDE RECORDS SUMMARY | 2024-06-03 17:48 | XMS_ITS | Encounter Summary ---
Author Organization [employer] Address 75 [facility] 7t [place] [address] Care Team Providers Care Berry Grower Name Role Phone Amna Richards DO Primary Care Provider + [phone] Reason for Visit * Reason Onset Date Comments Med Refill 05/09/2024 Encounter Details Date Type Department Care Team (Late st Contact Info) Description 05/09/2024 Refill [facility] [address] [place], [place] [phone] Amna Richards DO 230 [place], [place] [phone] Social History Tobacco Use Types Packs/Day Years [...] 250 MCG tablet To be sent to: [facility]/pharmacy #[id number] documented in this encounter Plan of Treatment Upcoming Encounters Date Type Department Care Team (Late st Contact Info) Description 06/04/2024 2:00 PM EDT Clinical Support [facility] [address] [place] [address] Ester Chatman RN documented as of this encounter Visit Diagnoses Not on filedocumented in this encounter Additional Health Concerns Assessment Noted Time PHQ-9 Depression Total Score: 11 024 1:53 PM EDT documented as of this encounter Care Teams Berry Grower Relationship Specialty Start Date End Date Amna Richards DO 230 [place] [address] PCP - General Family Medicine 10/12/23 [facility] 05/08/24 documented as of this encounter
--- OUTSIDE RECORDS SUMMARY | 2024-06-03 17:48 | XMS_ITS | Encounter Summary ---
Author Organization [employer] Address [address] [place] [address] 7t [place] [address] Care Team Providers Care Color Dipper Name Role Phone Candace Quiñones MD Primary Care Pro vider Amna Richards DO Primary Care Provider + [phone] Reason for Visit * Reason Comments Med Refill Encounter Details Date Type Department Care Team (Late st Contact Info) Description 11/17/2022 Refill [facility] [address] [place] [address] Candace Quiñones MD [address] [place] [address] Fracture of vertebra due to osteoporosis, sequela [...] Description 06/04/2024 2:00 PM EDT Clinical Support [facility] [address] [place] [address] Ester Chatman, RN documented as of this encounter Visit Diagnoses Diagnosis Fracture of vertebra due to osteoporosis, sequela documented in this encounter Additional Health Concerns Assessment Noted Time PHQ-9 Depression Total Score: 11 023 3:01 PM EDT documented as of this encounter Care Teams Color Dipper Relationship Specialty Start Date End Date Candace Quiñones MD [address] [place] [address] PCP - General Internal Medicine 07/24/22 10/11/23 Amna Richards DO [address] [place] [address] PCP - General Family Medicine 10/12/23 [facility] 05/08/24 documented as of this encounter
--- OUTSIDE RECORDS SUMMARY | 2024-06-03 17:48 | XMS_ITS | Encounter Summary ---
Author Organization [employer] Address 75 [facility] 7t [place] [address] Care Team Providers Care Physical Science Professor Name Role Phone Candace Quiñones MD Primary Care Pro vider Amna Richards DO Primary Care Provider + [phone] Encounter Details Date Type Department Care Team (Late st Contact Info) Description 02/28/2023 Orders Only [facility] 230 [place], [place] [phone] Brendon Davidson MD [address] [place] [address] Social History Tobacco Use Types Packs/Day Years [...] Description 06/04/2024 2:00 PM EDT Clinical Support [address] [address] Ester Chatman RN documented as of this encounter Procedures Procedure [...] Testosterone, Total 494 250 - 1100 ng/dL [facility] Comment:For additional infor mation, please refer tohttp://education.Akimbo/faq/RxrnbRtaumxoaleolLYODRGCBM740(This link is being provided for informational/educational purposes only.)This test was developed and its analytical performancecharacteristics have been determined by [employer] [place], [place]. It hasnot been cleared or approved by the U.S. Food and DrugAdministration. This assay has been validated pursuantto the CLIA regulations and is used for clinicalpurposes. Testosterone, Free 65.7 35.0 - 155.0 pg/mL [facility] Comment:This test was develo ped and its analytical performancecharacteristics have been determined by [employer] [place], [place]. It hasnot been cleared or approved by the U.S. Food and DrugAdministration. This assay has been validated pursuantto the CLIA regulations and is used for clinicalpurposes.THIS TEST WAS PERFORMED AT:[employer] [id number] [place] [id number] COLÓN MD,PHD 02/28/2023 9:10 AM EST 02/28/2023 9:22 AM EST us Generic External Data Provider LAB BLOOD ORDERAB LES Final Result [facility] [address] [place] [phone] * (ABNORMAL) Protein Electrophoresis and [place] (02/28/2023 9:10 AM EST) [facility] Prot Elec - Total Protein 7.0 6.1 - 8.1 g/dL [facility] Prot Elec - Albumin 4.0 3.8 - 4.8 g/dL [facility] Prot Elec - Alpha1 0.4(A) 0.2 - 0.3 g/dL [facility] Prot Elec - Alpha2 0.9 0.5 - 0.9 g/dL [facility] Prot Elec - Beta 1 0.4 0.4 - 0.6 g/dL [facility] Prot Elec - Beta 2 0.5 0.2 - 0.5 g/dL [facility] Prot Elec - Gamma 0.8 0.8 - 1.7 g/dL [facility] PES - Abn Protein Band 1 TNP [facility] PES-Abn Protein Band 2 TNP [facility] PES-Abn Protein Band 3 [facility] Prot Elec - Interpretation SEE NOTE [facility] Comment:Alpha-1 globulin inc rease noted.THIS TEST WAS PERFORMED AT:[employer] [address] [id number] BELL MD 02/28/2023 9:10 AM EST 02/28/2023 9:22 AM EST Generic External Data Provider LAB BLOOD ORDERAB LES Final Result Performing Organization Address [facility] [address]/[facility] de Phone Number [facility] [address] [place] [phone] * Immunofixation (MICHAEL), Urine (02/28/2023 9:10 AM EST) MICHAEL Interpretation [facility] Comment:No monoclonal protei ns detected.THIS TEST WAS PERFORMED AT:[employer] [address] [id number] BELL MD 02/28/2023 9:10 AM EST 02/28/2023 10:14 AM EST Generic External Data Provider LAB URINE ORDERAB LES Final Result Performing Organization Address [facility] de Phone Number [facility] [address] [place] [phone] documented in this encounter Visit Diagnoses Not on filedocumented in this encounter Additional Health Concerns Assessment Noted Time PHQ-9 Depression Total Score: 11 08/07/2 023 3:01 PM EDT documented as of this encounter Care Teams Physical Science Professor Relationship Specialty Start Date End Date Candace Quiñones MD 230 [place] [address] PCP - General Internal Medicine 07/24/22 10/11/23 Amna Richards DO [address] [place] [address] PCP - General Family Medicine 10/12/23 [facility] 05/08/24 documented as of this encounter
--- OUTSIDE RECORDS SUMMARY | 2024-06-03 17:48 | XMS_ITS | Encounter Summary ---
Author Organization [employer] Address [address] [facility] 7t [place] [address] Care Team Providers Care Payroll Representative Name Role Phone SusieAmna Primary Care Provider + [phone] Encounter Details Date Type Department Care Team [...] Description 06/04/2024 2:00 PM EDT Clinical Support [facility] MEDICINE [address] [place] [address] Ester Chatman RN documented as of this encounter Visit Diagnoses Not on filedocumented in this encounter Additional Health Concerns Assessment Noted Time PHQ-9 Depression Total Score: 11 024 1:53 PM EDT documented as of this encounter Care Teams Payroll Representative Relationship Specialty Start Date End Date Amna Richards DO [address] [place] [address] PCP - General Family Medicine 10/12/23 [facility] 05/08/24 documented as of this encounter
--- OUTSIDE RECORDS SUMMARY | 2024-06-03 17:48 | XMS_ITS | Encounter Summary ---
Author Organization [employer] Address [address] [facility] 7t [place] [address] Care Team Providers Care Tractor Crane Operator Name Role Phone Amna Richards DO Primary Care Provider + [phone] Amna Richards DO Primary Care Provider [phone] Candace Quiñones MD Primary Care Pro vider Amna Richards DO Primary Care Provider [phone] Reason for Visit * Reason Comments Med Refill Encounter Details Date Type Department Care Team (Late st Contact Info) Description 06/26/2022 Refill [facility] MEDICINE 230 [place], [place] [phone] Linda Loya MD 230 [place], [place] [phone] Severe persistent asthma with acute exacerbation Social [...] Description 06/04/2024 2:00 PM EDT Clinical Support [facility] MEDICINE [address] [place] [address] Ester Chatman, RN documented as of this encounter Visit Diagnoses Diagnosis Severe persistent asthma with acute exacerbation documented in this encounter Additional Health Concerns Assessment Noted Time PHQ-9 Depression Total Score: 13 023 11:01 AM EDT documented as of this encounter Care Teams Tractor Crane Operator Relationship Specialty Start Date End [place] [address] PCP - General Family Medicine 03/19/18 07/20/22 Amna Richards DO [address] [place] [address] PCP - General Family Medicine 07/21/22 07/23/22 Candace Qu[place] [address] PCP - General Internal Medicine 07/24/22 10/11/23 Amna Richards DO [address] [place] [address] PCP - General Family Medicine 10/12/23 [facility] 05/08/24 documented as of this encounter
--- OUTSIDE RECORDS SUMMARY | 2024-06-03 17:48 | XMS_ITS | Encounter Summary ---
Author Organization [employer] Address 75 [facility] 7t [place] [address] Care Team Providers Care Small Business Consultant Name Role Phone Amna Richards DO Primary Care Provider + [phone] Reason for Visit * Reason Comments Med Refill Encounter Details Date Type Department Care Team ([facility] st Contact Info) Description 2024 Refill [facility] MEDICINE 230 [place], [place] [phone] Amna Richards DO [address] [place], [place] [phone] Social History Tobacco Use Types Packs/Day Years [...] Description 06/04/2024 2:00 PM EDT Clinical Support [facility] MED[facility]INE [address] [place] [address] Ester Chatman, RN documented as of this encounter Visit Diagnoses Not on filedocumented in this encounter Additional Health Concerns Assessment Noted Time PHQ-9 Depression Total Score: 11 024 1:53 PM EDT documented as of this encounter Care Teams Small Business Consultant Relationship Specialty Start Date End Date Amna Richards DO [address] [place] [address] PCP - General Family Medicine 10/12/23 [facility] 05/08/24 documented as of this encounter
--- OUTSIDE RECORDS SUMMARY | 2024-06-03 17:48 | XMS_ITS | Encounter Summary ---
Author Organization [employer] Address 75 [facility] 7t [place] [address] Care Team Providers Care Seo Analyst Name Role Phone Susie Amna Primary Care Provider + [phone] Reason for Visit * Reason Comments Med Refill Encounter Details Date Type Department Care Team ([facility] st Contact Info) Description 04/20/2024 Refill [facility] 230 [place], [place] [phone] Bong Sahni MD 230 [place], [place] [phone] Bronchitis Social History Tobacco Use Types Packs/Day [...] Description 06/04/2024 2:00 PM EDT Clinical Support [facility] MEDICINE [address] [place] [phone] Ester Chatman, JACOB documented as of this encounter Visit Diagnoses Diagnosis Bronchitis Bronchitis, not specified as acute or chronic documented in this encounter Additional Health Concerns Assessment Noted Time PHQ-9 Depression Total Score: 11 024 1:53 PM EDT documented as of this encounter Care Teams Seo Analyst Relationship Specialty Start Date End Date Amna Richards DO 230 [place] [address] PCP - General Family Medicine 10/12/23 [facility] 05/08/24 documented as of this encounter
--- OUTSIDE RECORDS SUMMARY | 2024-06-03 17:48 | XMS_ITS | Encounter Summary ---
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 I informed him that there are no entries in his chart, stating that any paperwork was received by medical records. I provided him with the HIM Department's fax number, and he agreed to contact [facility] to have them fax any paperwork that needs to be reviewed and signed by his provider. 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 I informed him that there are no entries in his chart, stating that any paperwork was received by medical records. I provided him with the [facility] Department's fax number, and heagreed to contact [facility] to have them fax any paperwork that needs to be reviewed and signed by his provider. documented in this encounter Plan of Treatment Upcoming Encounters Date Type Department Care Team (Late st Contact Info) Description 06/04/2024 2:00 PM EDT Clinical Support [facility] MEDICINE 230 [place] [address] Ester Chatman, JACOB documented as of this encounter Visit Diagnoses Not on filedocumented in this encounter Additional Health Concerns Assessment Noted Time PHQ-9 Depression Total Score: 11 023 3:01 PM EDT documented as of this encounter Care Teams Entry Level Paralegal Relationship Specialty Start Date End Date Candace Quiñones MD [address] [place] [address] PCP - General Internal Medicine 07/24/22 10/11/23 Amna Richards DO [address] [place] [address] PCP - General Family Medicine 10/12/23 [facility] 05/08/24 documented as of this encounter
--- OUTSIDE RECORDS SUMMARY | 2024-06-03 17:48 | XMS_ITS | Encounter Summary ---
Author Organization [employer] Address 75 [facility] 7t [place] [address] Care Team Providers Care Options Advisor Name Role Phone Amna Richards DO Primary Care Provider + [phone] Reason for Visit * Reason Comments [facility]ination [facility] outreach Encounter Details Date Type Department Care Team (Latest Contact Info) Description 05/09/[address] [facility] MEDICINE [address] [place] [address] Amna Richards DO [address] [place] [address] Care Coordination ([facility] B[facility] telephone call outreach) Social History [...] CHW Ginette Banda placed outbound call to [facility] for discharge coordination as patient was admitted on 05/01/24. CHW was connect to patient's Rehabilitation Coordinator he was discharged on 05/07/24. documented in this encounter Plan of Treatment Upcoming Encounters Date Type Department Care Team (Late st Contact Info) Description 06/04/2024 2:00 PM EDT Clinical Support [facility] MEDICINE [address] [place] [address] Ester Chatman RN documented as of this encounter Visit Diagnoses Not on filedocumented in this encounter Additional Health Concerns Assessment Noted Time PHQ-9 Depression Total Score: 11 024 1:53 PM EDT documented as of this encounter Care Teams Options Advisor Relationship Specialty Start Date End Date Amna Richards DO [address] [place] [address] PCP - General Family Medicine 10/12/23 [facility] 05/08/24 documented as of this encounter
--- OUTSIDE RECORDS SUMMARY | 2024-06-03 17:48 | XMS_ITS | Encounter Summary ---
Author Organization [employer] Address 75 [facility] 7t [place] [address] Care Team Providers Care Welding Systems And Equipment Repairer Name Role Phone Amna Richards DO Primary Care Provider + [phone] Reason for Visit * Reason Comments Med Refill Encounter Details Date Type Department Care Team ([facility] st Contact Info) Description 05/07/2024 Refill [facility] MEDICINE 230 [place], [place] [phone] Amna Richards DO 230 [place], [place] [phone] Hypertension, unspecified type Social History Tobacco Use [...] Description 06/04/2024 2:00 PM EDT Clinical Support [facility] MEDICINE [address] [place] [address] Ester Chatman, JACOB documented as of this encounter Visit Diagnoses Diagnosis Hypertension, unspecified type documented in this encounter Additional Health Concerns Assessment Noted Time PHQ-9 Depression Total Score: 11 024 1:53 PM EDT documented as of this encounter Care Teams Welding Systems And Equipment Repairer Relationship Specialty Start Date End Date Amna Richards DO 230 [place] [address] PCP - General Family Medicine 10/12/23 documented as of this encounter
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
--- OUTSIDE RECORDS SUMMARY | 2024-06-03 17:48 | XMS_ITS | Encounter Summary ---
Author Organization [employer] Address [address] [facility] [address] [place] [address] Care Team Providers Care Residential Insurance Inspector Name Role Phone Susie Amna Primary Care Provider + [phone] Reason for Visit * Reason Comments Med Refill Encounter Details Date Type Department Care Team ([facility] st Contact Info) Description 01/25/2024 Refill [facility] MEDICINE [address] [place] [address] Candace Singh MD [address] [place] [address] Fracture of vertebra due to osteoporosis, sequela [...] Description 06/04/2024 2:00 PM EDT Clinical Support [facility] MEDICINE [address] [place] [address] Ester Chatman RN documented as of this encounter Visit Diagnoses Diagnosis Fracture of vertebra due to osteoporosis, sequela documented in this encounter Additional Health Concerns Assessment Noted Time PHQ-9 Depression Total Score: 11 024 1:53 PM EDT documented as of this encounter Care Teams Residential Insurance Inspector Relationship Specialty Start Date End Date Amna Richards DO [address] [place] [address] PCP - General Family Medicine 10/12/23 [facility] 05/08/24 documented as of this encounter
--- OUTSIDE RECORDS SUMMARY | 2024-06-03 17:48 | XMS_ITS | Clinical Summary ---
Author Organization [employer] Address [address] [facility] [address] [place] [address] Care Team Providers Care Perioperative Tech Name Role Phone Susie Amna Primary Care Provider + [phone] Allergies Active Allergy Reactions Criticality Noted Date [...] BY MOUTH EVERY MORNING 023 Active Creon [id number] units capsule TAKE 1 CAPSULE BY MOUTH [...] complication, without long-term current use of insulin ([facility]) USE WITH INSULIN ONCE A DAY [...] USING DEVICE ONE DOSE = 2 INHALATIONS 024 Active predniSONE (Deltasone) 10 MG tablet Take 2 tablets by mouth Once per day. 024 Active triamcinolone (Kenalog) 0.1 % ointment Apply topically if needed in the morning and at bedtime for rash. 30 g 1 024 Active ergocalciferol (Vitamin D2) 1.25 MG (36060 UT) capsule TAKE 1 CAPSULE BY MOUTH [...] BY MOUTH TWICE A DAY 180 tablet Active amLODIPine (Norvasc) 5 MG tabletIndicatio ns:Hypertension , unspecified type TAKE 1 TABLET (5 MG) BY MOUTH ONCE PER DAY. 90 tablet 1 Active losartan (Cozaar) 25 MG tablet Take 1 tablet (25 mg) by mouth in the morning. 90 tablet Active hydroCHLOROthia zide 12.5 MG tablet Take 1 tablet (12.5 mg) by mouth Once per day. 90 tablet Active Diclofenac Sodium 1 % gel Apply 2 g topically if needed in the morning, at noon, in the evening, and at bedtime (pain). 150 g 3 Active alendronate (Fosamax) 70 MG tablet TAKE [...] eorder (will not trigger notification to Pharmacy)) ipratropium-alb uterol (Combivent Respimat) 20-100 MCG/ACT inhaler INHALE 1 PUFF IN THE MORNING, AT NOON, IN THE EVENING, AND AT BEDTIME. 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 BUT Discussed in legth w pt to not take tramadol while [...] Patient was referred in the past to field naturalist for this. Will follow up in next visit with patient about this and if still present at next labs will consider to refer again -CBC including blood Smear ordered at last visit, not done labs yet Assessment & Plan (10/24/2022 5:04 AM EDT): Most likely 2/2 chronic steroid use? Patient was referred in the past to field naturalist for this. Will follow up in next visit with patient about this and if still present at next labs will consider to refer again -CBC including blood Smear ordered at last visit, not done labs yet Assessment & Plan (08/21/2022 2:34 PM EDT): Most likely 2/2 chronic steroid use? Patient was referred in the past to field naturalist for this. Will follow up in next visit with patient about this and if still present at next labs will consider to refer again -labs today including blood smear Assessment & Plan (07/21/2022 6:41 PM EDT): Most likely 2/2 chronic steroid use? Patient was referred in the past to field naturalist for this. Will follow up in next visit with patient about this and if still present at next labs will consider to refer again Assessment & Plan (07/12/2022 10:17 PM EDT): Most likely 2/2 chronic steroid use? Patient was referred in the past to field naturalist for this. Will follow up in next [...] length about tobacco cessation -continue following w pouncer machine f lung ca screening ( as per in lung nodules problem) -start on chantix by pouncer machine Assessment & Plan (10/24/2022 5:08 AM EDT): [...] length about tobacco cessation -continue following w pouncer machine f lung ca screening ( as per [...] length about tobacco cessation -continue following w pouncer machine f lung ca screening ( as per [...] scarring of lung base -continue care w pouncer machine Assessment & Plan (10/23/2022 8:40 PM EDT): [...] scarring of lung base -continue care w pouncer machine Assessment & Plan (08/21/2022 2:28 PM EDT): [...] the patient to follow up with his pouncer machine about nodules and hx of tobacco smoking [...] the patient to follow up with his pouncer machine about nodules and hx of tobacco smoking Assessment & Plan (07/12/2022 9:58 PM EDT): Patient with multiple pulmonary nodules seen in previous CT scans including the last one. In one CT scan in 2018 he did have tree in bud nodules in KEVIN. Rec for bronchoscopy, per patient he never underwent any procedure. - I advised the patient to follow up with his pouncer machine about this. Chronic constipation 05/03/2022 Assessment & [...] up apt --also I request today to [facility]uan Dave) to try to get last colonoscopy [...] -continue basal insulin- 10 HS -referred to netsuite consultant----to eval x osteoporosis , DM and 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 that can explain pts physical features w large abdominal girth and decrease muscle mass in extremities -with normal liver and no peritoneal fluid in CT scan and abd US.---apt scheduled x 02/01/2023 at 10 am - Patient would like a desk representative -Following already ??-discussed about hypoglyecemic symptoms and to check CBGs in fasting and 2 h after biggest meal and bring at next visit readings -will refer to hand i tube bender at future visit -referred to manager activities Assessment & Plan (10/24/2022 5:04 AM EDT): Hb1ac 10/2022 is 7.4 <-- 10.2 <-- - 9.2. Likely due to chronic steroid use. - Stop Farxiga 2 mo ago as possible cause of worsening balanitis - Continue Metformin 1 g BID. - Continue januvia 25 mg daily instead,discussed about GLP1 but refusing x now -continue basal insulin- 10 HS -referred to netsuite consultant----to eval x osteoporosis , DM and likely Stonefort syndrome that can explain pts physical features w large abdominal girth and decrease muscle mass in extremities -with normal liver and no peritoneal fluid in CT scan and abd US.---apt scheduled x 11/02/2022 at 9 am- - Patient would like a desk representative referral.-referred already ??-discussed about hypoglyecemic symptoms and to check CBGs in fasting and 2 h after biggest meal and bring at next visit readings -will refer to hand i tube bender at future visit -referred to manager activities Assessment & Plan (08/21/2022 2:19 PM EDT): [...] u from 7 u HS -referred to netsuite consultant----to eval x osteoporosis ,uncontrolled DM and 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 that can explain pts physical features w large abdominal girth and decrease muscle mass in extremities -with normal liver and no peritoneal fluid in CT scan.---apt scheduled x 11/02/2022 at 9 am--I told today this info to pt by phone - Patient would like a desk representative referral.-referred today ??-discussed about hypoglyecemic symptoms and to check CBGs in fasting and 2 h after biggest meal and bring at next visit readings -will refer to hand i tube bender at future visit -referred today to manager activities -DM labs today in fasting Assessment & [...] lantus-pen instead of basaglar) -referred today to netsuite consultant----to eval x osteoporosis ,uncontrolled DM and likely Stonefort syndrome that c an explain pts physical features w large abdominal girth and decrease muscle mass in extremities -with normal liver and no peritoneal fluid in CT scan. - Patient would like a desk representative referral. Will refer at next visit. ??-discussed [...] at next visit. - Will refer to netsuite consultant at next appointment in 2 weeks. - Patient would like a desk representative referral. Will refer at next visit. Assessment [...] of inhalers. Advised patient to follow with pouncer machine for uncontrolled COPD. 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 - Will refer to endocrinology at [...] apt for HFU after is dc from [facility] 07/21/2022 10/11/2023 Assessment & Plan [...] Encounters Date Type Department Care Team Description 06/02/2024 9:45 AM EDT Office Visit [facility] [address] [place] [phone] Amna Richards DO Closed fracture of orbit, initial encounter (CMS/HCC) (Primary Dx); COPD with asthma (CMS/HCC); Gluteal abscess; Chronic pain of right hand; Left hand pain; Type 2 diabetes mellitus without complication, without long-term current use of insulin (CMS/HCC) 06/02/2024 Travel 05/30/2024 Population Health Risk Score [facility] (C3) Department [address] [place] [address] [phone] Provider, Population Health Generic 05/28/2024 Patient Outreach [facility] [address] [place] [phone] Amna Richards DO Care Coordination (C3 -[facility] Ginette Banda telephone call outreach) 05/27/2024 Refill [facility] [address] [place] [phone] Amna Richards DO 05/26/2024 Orders Only [facility] [address] [place] [phone] Amna Richards DO Type 2 diabetes mellitus without complication, without long-term current use of insulin (CMS/HCC) (Primary Dx) 05/23/2024 Telephone [facility] Nick Dominguezke, [place] [address] Amna Richards DO Referral 05/22/2024 Refill [facility] [address] Amna Richards, 05/21/2024 Telephone [facility] [place] [address] Amna Richards DO Nurse Triage 05/16/2024 9:15 AM EST Office Visit [facility] [place] [address] Amna Richards DO Chronic pain of right hand (Primary Dx); Type 2 diabetes mellitus without complication, without long-term current use of insulin (CMS/HCC) 05/16/2024 Telephone [facility] [place] [address] Amna Richards DO HDF 05/16/2024 Travel 05/16/2024 Refill [facility] [place] [address] Amna Richards DO 05/15/2024 Telephone [facility] [place] [address] Amna Richards DO FYI 05/14/2024 Travel 05/13/2024 Patient Outreach [facility] [place] [address] Amna Richards DO Transition Of Care (Tcm) (HDF- Unscheduled SECOND LVM) 05/09/2024 Patient Outreach [facility] [place] [address] Amna Richards DO Care Coordination (C3 [facility] Ginette Banda telephone call outreach) 05/09/2024 Patient Outreach [facility] [place] [address] Amna Richards DO Care Coordination (C3 [facility] telephone call outreach) 05/09/2024 Refill [facility] [address] [place] [phone] Amna Richards DO 05/09/2024 Refill [facility] [address] [place] [phone] Amna Richards DO 05/08/2024 Patient Outreach [address] [address] Amna Richards DO Transition Of Care (Tcm) (HDF- Unscheduled LVM) 05/07/2024 Patient Outreach [facility] [address] [place] [phone] Amna Richards DO Care Coordination (C3 [facility] telephone call outreach ) 05/07/2024 Refill [facility] [address] [place] [phone] Amna Richards DO Hypertension, unspecified type 05/02/2024 Patient Outreach [facility] [address] [place] [phone] Amna Richards DO Care Coordination (C3 [facility] telephone call outreach ) 05/02/2024 Patient Outreach [address] [address] Amna Richards DO Care Coordination (C3 -[facility] telephone call outreach) 05/02/[address] [address] Amna Richards DO Care Management (C3CM- chart review) 05/01/2024 Telephone [facility] [address] [place] [phone] Amna Richards DO Appointment Request 05/01/[address] [address] Amna Richards DO 04/23/2024 6:20 PM EST Office Visit [facility] [address] [place] [phone] Patricia Padilla NP Cough in adult patient (Primary Dx); Elevated blood pressure reading in office with diagnosis of hypertension; Itchy eyes; Wheezing 04/23/2024 Travel 04/23/2024 Telephone [facility] [address] [address] India Dey, RN Nurse Triage (Chest pain) 04/22/[address] [address] Amna Richards DO Appointment Request; Reschedule COUNTS INCLUDE 234 BEDS AT [facility] HVAC MECHANIC appt from 02/21/24 04/22/[address] [address] Amna Richards DO Nurse Triage 04/20/[facility] [address] [address] Bong Sahni MD Bronchitis 04/17/[address] [address] Amna Richards DO Appointment Request 04/12/[address] [address] Amna Richards DO 03/29/2024 10:40 AM EST [facility] [address] [address] Bong Sahni MD Viral URI; Bronchitis 03/29/2024 Travel 03/28/[address] [address] Amna Richards DO Nurse Triage 03/25/[address] [address] Amna Richards DO No Show from Last [...] Sign Reading Time Taken Comments Blood Pressure 134/70 06/02/2024 10:00 AM EDT Pulse 90 06/02/2024 10:00 AM EDT Temperature 36.9 ??C (98.5 ??F) 06/02/2024 10:00 AM E DT Respiratory Rate 20 06/02/2024 10:00 AM EDT Oxygen Saturation 96% 06/02/2024 10:00 AM EDT Inhaled Oxygen Concentration - - Weight 72.1 kg (159 lb) 06/02/2024 10:00 AM EDT Height 172.7 cm (5' 8 ) 06/02/2024 10:00 AM EDT Body Mass Index 24.18 06/02/2024 10:00 AM EDT Plan of Treatment Upcoming Encounters Date Type Department Care Team (Late st Contact Info) Description 06/04/2024 2:00 PM EDT Clinical Support [facility] [address] [place] [phone] Ester Chatman, RN Health Maintenance Due Date Last Done Comments [...] 07/05/2021 Depression Monitoring (PHQ-9) 03/04/2024 09/03/2023, 09/03/2023 Depression Screening 09/02/2024 09/03/2023, 09/03/19 24 Diabetes: Hemoglobin A1C 09/02/2024 025, 05/16/2024, 02/01/2024, Additional history exists Alcohol/Substance Use Screening 05/16/2025 05/16/2024 SDOH Screening 05/16/2025 05/16/2024 Tobacco Screening 06/02/2025 06/02/2024 DTaP/Tdap/Td Vaccines (3 - Td or Tdap) [...] Diagnosis Comments POCT GLYCATED HEMOGLOBIN, TOTAL Routine 06/02/2024 10:07 AM EDT Type 2 diabetes mellitus without complication, without long-term current use of insulin (CMS/[facility]) POCT GLUCOSE Routine 06/02/2024 10:04 AM EDT Type 2 diabetes mellitus without complication, without long-term current use of insulin (CMS/HCC) POCT GLYCATED HEMOGLOBIN, TOTAL Routine 05/16/2024 9:30 AM EST Type 2 diabetes mellitus without complication, without long-term current use of insulin (CMS/HCC) POCT GLUCOSE Routine 05/16/2024 9:29 AM EST Type 2 diabetes mellitus without complication, without long-term current use of insulin (CMS/HCC) POCT INFLUENZA A (ID NOW RAPID MOLECULAR) [...] Maintenance Results * (ABNORMAL) POCT HGB A1C (06/02/2024 10:07 AM EDT) Only the most recent of2 resultswithin the time period is included. Hemoglobin A1C 7.6(A) 4.0 - 6.0 % QC Media Lot # [id number] Lot# Expiration Date [id number] Blood 06/02/2024 10:0 7 AM EDT Amna Richards DO POINT OF CARE TEST ENTER/LOU T ORDERABLES Final Result * POCT Glucose (06/02/2024 10:04 AM EDT) Only the most recent of2 resultswithin the time period is included. Glucose Blood, POC 200 60 - 200 mg/dL [employer] Lot # [id number] Lot# Expiration Date [id number] Blood Capillary blood specimen / Unknown 06/02/2024 10:04 AM EDT Amna Richards DO POINT OF CARE TEST ENTER/LOU T ORDERABLES Final Result * POCT Rapid Influenza B LUNDY ID NOW (04/23/2024 7:28 PM EST) Only the most recent of2 resultswithin the time period is included. Influenza B Negative Negative, Indeterminate [facility] Swab 04/23/2024 7:28 PM EST us Patricia Padilla [employer] POINT OF CARE TEST ENTER/EDIT O RDERABLES Final Result Performing Organization Address [facility] Hospital/ZIP Co de Phone Number [facility] [address] [place] [phone] * POCT Rapid Influenza A LUNDY ID NOW (04/23/2024 7:28 PM EST) Only the most recent of2 resultswithin the time period is included. Influenza A Negative Negative, Indeterminate [facility] Swab 04/23/2024 7:28 PM EST us Patricia Appram [employer] POINT OF CARE TEST ENTER/EDIT O RDERABLES Final Result Performing Organization Address City/[facility]/ZIP Co de Phone Number [facility] [address] [place] [phone] * POCT Rapid Covid-19 BinaxNOW (04/23/2024 7:26 PM EST) Only the most recent of2 resultswithin the time period is included. Rapid COVID Ag Negative Swab 04/23/2024 7:[address] [facility] [employer] POINT OF CARE TEST ENTER/EDIT O RDERABLES Final Result * (ABNORMAL) Respiratory Viral Panel PCR (03/29/2024 11:22 AM EST) [facility] Adenovirus PCR Not Detected Not Detect. [facility] Bordetella pertussis PCR Not Detected Not Detect. [facility] Comment:Interpret results wi th caution. If B. pertussis isspecifically suspected, additional testing using analternate method is recommended. Bordetella parapertussis PCR Not Detected Not Detect. [facility] Chlamydia pneumoniae PCR Not Detected Not Detect. [facility] Coronavirus 229E PCR Not Detected Not Detect. [facility] Coronavirus HKU1 PCR Not Detected Not Detect. [facility] Coronavirus NL63 PCR Not Detected Not Detect. [facility] Coronavirus OC43 PCR Not Detected Not Detect. [facility] SARS-CoV-2 PCR Not Detected Not Detect. [facility] Comment:SARS-CoV-2 not detec tamra by real-time RT-PCR.Note: If clinical suspicion for Sars-CoV-2 is high, continueto maintain precautions and consider repeat testing.Test results should be interpreted in the context ofclinical findings and other laboratory data.Rare polymorphisms exist that could lead to false-negativeor false-positive results. If results do not match theclinical findings, additional testing should be considered.Results reported to [facility].This test has been authorized by the FDA under the EmergencyUse Authorization (EUA) for use by authorized laboratories. Influenza A PCR Not Detected Not Detect. [facility] Influenza B PCR Not Detected Not Detect. [facility] Human metapneumovirus PCR Not Detected Not Detect. [facility] Rhino/Enterovirus PCR Not Detected Not Detect. [facility] Mycoplasma pneumoniae PCR Not Detected Not Detect. [facility] Parainfluenza 1 PCR Not Detected Not Detect. [facility] Parainfluenza 2 PCR Not Detected Not Detect. [facility] Parainfluenza 3 PCR Not Detected Not Detect. [facility] Parainfluenza 4 PCR Not Detected Not Detect. [facility] RSV PCR Detected(A) Not Detect. [facility] Resp Panel NA Note See Note H [facility] Comment:All results must be correlated with [...] assay is performed by Multiplexed PCR, utilizing iodine Film Array. Swab 03/29/2024 11:2 2 AM EST 03/29/2024 1:29 PM EST Bong Sahni MD LAB BLOOD ORDERABLES Final Resul t Performing Organization Address [facility] Co de Phone Number [facility] [address] [place] [phone] * POCT rapid strep A manually resulted (03/29/2024 11:05 AM EST) Rapid Strep A Screen Negative Negative, None Detected [facility] Swab 03/29/2024 11:0 5 AM EST oBng Sahni MD POINT OF CARE TEST ENTER/EDIT OR DERABLES Final Result Performing Organization Address [facility] Co de Phone Number [facility] [address] [place] [phone] * (ABNORMAL) Albumin, Random Urine W/Creatinine (12/01/2022 12:06 PM EDT) Creatinine, Urine 134.93 mg/dL [facility] Microalbumin Urine 71.0 mg/L [facility] Microalbum Creatinine Ratio Ur 52.6(H) <30 ug/mg cr [facility] Comment:Albumin/Creatinine R atio Reference Ranges: Normal: < 30 ug/mg creatinine Microalbuminuria: 30 - 300 ug/mg creatinineClinical Albuminuria: > 300 ug/mg creatinine 12/01/2022 12:0 6 PM EDT 12/01/2022 2:44 PM EDT us Candace Palmer MD LAB URINE ORDERAB LES Final Result [facility] [address] [place] [phone] * HIV Ab/Ag ([place] [facility]) (12/01/2022 12:01 PM EDT) [facility] HIV AB/AG Nonreactive Nonreactive [facility] Comment:HIV-1 p24 Ag and/or HIV-1/HIV-2 Ab not detected.A test result that is nonreactive does not exclude thepossibility of exposure to or infection with HIV-1 and/orHIV-2. Nonreactive results in this assay for individualswith prior exposure to HIV-1 and/or HIV-2 may be due toantigen and antibody levels that are below the limit ofdetection of this assay.The [employer] HIV Ag/Ab Combo assay result andsupplemental assay results should be interpreted inconjunction with the patient's clinical presentation,history and other laboratory results. If the results areinconsistent with clinical evidence, additional testing issuggested to confirm the result. 12/01/2022 12:0 1 PM EDT 12/01/2022 2:52 PM EDT us Candace Palmer MD LAB BLOOD ORDERAB LES Final Result Performing Organization Address City/[facility] Hospital/ZIP Co de Phone Number [facility] [address] [place] [phone] * Hepatitis C Antibody with Reflex to HCV, RNA, Quantitative, Real-Time PCR (12/01/2022 12:01 PM EDT) Hepatitis C Antibody Nonreactive Nonreactive [facility] Comment:Antibodies to HCV no t detected; does not exclude early acuteHCV infection. Blood Venous blood specimen / Unknown 12/01/2022 12:01 PM EDT 12/01/2022 2:52 PM EDT us Candace Palmer MD LAB BLOOD ORDERAB LES Final Result Performing Organization Address [facility]/ZIP Co de Phone Number [facility] [address] [place] [phone] * (ABNORMAL) Lipid Panel, Standard (12/01/2022 12:01 PM EDT) Triglycerides 79 <150 mg/dL [facility] Comment:Desirable Triglyceri de: less than 150 mg/dLBorderline High Triglyceride 150-199 mg/dLHigh Triglyceride: 200-499 mg/dLVery High Triglyceride: greater than or equal to 5OO mg/dL Cholesterol 178 <200 mg/dL [facility] Comment:Desirable Cholestero l: less than 200 mg/dLBorderline High Cholesterol: 200-239 mg/dLHigh Cholesterol: greater than 239 mg/dL LDL Cholesterol Calculated 100(H) <100 mg/dL [facility] Comment:Desirable LDL: less than 100 mg/dLNear Optimal/Above Optimal LDL: 110- 129 mg/dLBorderline High LDL: 130-159 mg/dLHigh LDL: 160-189 mg/dLVery High LDL: greater than or equal to 190 mg/dL HDL Cholesterol 63 >40 mg/dL [facility] Comment:Desirable HDL: grea ter than 40 mg/dL Note: This HDL assay may give artificially low results in patients with liver disease. 12/01/2022 12:0 1 PM EDT 12/01/2022 2:52 PM EDT Candace Palmer MD LAB BLOOD ORDERAB LES Final Result [facility] [address] [place] [phone] from Last 3 Months or Most Recently Relevant to Health Maintenance Insurance [employer] C3 Care Teams Perioperative Tech Relationship Specialty Start Date End Date Amna Richards DO [address] [place] [address] PCP - General Family Medicine 10/12/23 [facility] 05/08/24
--- OUTSIDE RECORDS SUMMARY | 2024-06-03 17:48 | XMS_ITS | Encounter Summary ---
Author Organization [employer] Address 75 [facility] 7t [place] [address] Care Team Providers Care Kitman Name Role Phone Amna Richards DO Primary Care Provider + [phone] Reason for Visit * Reason Comments Care Coordination [facility] call outreach Encounter Details Date Type Department Care Team (Latest Contact Info) Description 05/09/2024 Patient Outreach [facility] [address] [place] [address] Amna Richards DO [address] [place] [address] Care Coordination ([facility] telephone call outreach) Social History [...] to offer services. CHW introducing herself from [facility] CM Department with CHW's name, department and direct contact number requesting call back. Will re-attempt to contact within 5 days. and address not confirmed. documented in this encounter Plan of Treatment Upcoming Encounters Date Type Department Care Team ([facility] st Contact Info) Description 06/04/2024 2:00 PM EDT Clinical Support [facility] [address] [place] [address] Ester Chatman RN documented as of this encounter Visit Diagnoses Not on filedocumented in this encounter Additional Health Concerns Assessment Noted Time PHQ-9 Depression Total Score: 11 024 1:53 PM EDT documented as of this encounter Care Teams Kitman Relationship Specialty Start Date End Date Amna Richards DO [address] [place] [address] PCP - General Family Medicine 10/12/23 [facility] 05/08/24 documented as of this encounter
--- OUTSIDE RECORDS SUMMARY | 2024-06-03 17:48 | XMS_ITS | Encounter Summary ---
Author Organization [employer] Address 75 [facility] 7t [place] [address] Care Team Providers Care Worm Sorter Name Role Phone Amna Richards DO Primary Care Provider + [phone] Reason for Visit * Reason Onset Date Comments FYI 05/15/2024 Encounter Details Date Type Department Care Team ([facility] st Contact Info) Description 05/15/2024 Telephone [facility] [address] [place], [place] [phone] Amna Richards DO [address] [place] [address] FYI Social History Tobacco Use Types Packs/Day [...] encounter Miscellaneous Notes * Telephone Encounter - Melissa Newman - 06/03/2024 1:54 PM EDT Tc from [facility] requesting medical necessity for wound care supplies to be sent to * Telephone Encounter - Sherlyn Elizabeth - 05/20/2024 3:56 PM EST Certificate or medical necessity for wound care supplies signed and faxed to Arianne . Confirmation received and sent to scan. If patient calls to check status on above, please advise them to contact [facility]rian[facility] at [phone]. * Telephone Encounter - Veronica Goetz RN - 05/15/2024 2:31 PM EST TC returned to [facility] [phone] who reports [facility] has faxed over a DME order for wound care supplies and they are awaiting PCP signature and for forms to be faxed back. RN advised JACOB Guerrero will send message to [facility] for them to f/u. Yolanda verbalized understanding. Please f/u regarding wound care supplies forms. Thank you! * Telephone Encounter - Trinidad Lira - 05/15/2024 1:50 PM EST Tc from [facility] with [facility] informing facility [place] sent over a FAX 2x as needs to be sign byprovider as is for wound care. documented in this encounter Plan of Treatment Upcoming Encounters Date Type Department Care Team (Late st Contact Info) Description 06/04/2024 2:00 PM EDT Clinical Support [facility] [address] [place] [address] Ester Chatman RN documented as of this encounter Visit Diagnoses Not on filedocumented in this encounter Additional Health Concerns Assessment Noted Time PHQ-9 Depression Total Score: 11 024 1:53 PM EDT documented as of this encounter Care Teams Worm Sorter Relationship Specialty Start Date End Date Amna Richards DO [address] [place] [address] PCP - General Family Medicine 10/12/23 [facility] 05/08/24 documented as of this encounter
--- OUTSIDE RECORDS SUMMARY | 2024-06-03 17:48 | XMS_ITS | Encounter Summary ---
Author Organization [employer] Address 75 [facility] 7t [place] [address] Care Team Providers Care Cut Roll Machine Offbearer Name Role Phone SusieAmna Primary Care Provider + [phone] Encounter Details Date Type Department Care Team (Latest Contact Info) Description 06/02/2024 Travel Social History Tobacco Use Types Packs/Day [...] 2:00 PM EDT Clinical Support [facility] [address] [place] [address] Ester Chatman RN documented as of this encounter Visit Diagnoses Not on filedocumented in this encounter Additional Health Concerns Assessment Noted Time PHQ-9 Depression Total Score: 11 024 1:53 PM EDT documented as of this encounter Care Teams Cut Roll Machine Offbearer Relationship Specialty Start Date End Date Amna Richards DO 230 [place] [address] PCP - General Family Medicine 10/12/23 [facility] 05/08/24 documented as of this encounter
--- OUTSIDE RECORDS SUMMARY | 2024-06-03 17:48 | XMS_ITS | Encounter Summary ---
Author Organization [employer] Address 75 [facility] 7t [place] [address] Care Team Providers Care Heel Cover Softener Name Role Phone Amna Richards DO Primary Care Provider [phone] Reason for Referral * Neurology (Routine) - Authorized Specialty Diagnoses / Procedures Referred By Contac t Referred To Contact Diagnoses Chronic pain of right hand Left hand pain Procedures Nerve conduction test Amna Richards DO [address] [place], [place] Phone: tel: fax: [facility] Referral ID Status Reason Start Date Expiration Date V isits Requested Visits Authorized [id number] Authorized 06/02/2024 06/02/2025 1 1 * Neurology (Routine) - Authorized Specialty Diagnoses / Procedures Referred By Contac t Referred To Contact Diagnoses Chronic pain of right hand Left hand pain Procedures EMG Amna Richards DO [address] [place] [address] Phone: tel: fax: [facility] Referral ID Status Reason Start Date Expiration Date V isits Requested Visits Authorized [id number] Authorized 06/02/2024 06/02/2025 1 1 * Consultation (Urgent) - Authorized Specialty Diagnoses / Procedures Referred By Contac t Referred To Contact Wound Care Diagnoses Gluteal abscess Amna Richards DO [address] [place] [address] Phone: tel: fax: [facility] [address] [place], [place] Phone: tel: fax: Referral ID Status Reason Start Date Expiration Date Visits Requested Visits Authorized [id number] Authorized Specialty Services Required 06/03/2024 06/03/2025 6 6 Encounter Details Date Type Department Care Team (Late st Contact Info) Description 06/02/2024 9:45 AM EDT Office Visit [facility] [address] [place] [address] Amna Richards DO [address] [place] [address] Closed fracture of orbit, initial encounter (CMS/HCC) (Primary Dx); COPD with asthma (CMS/HCC); Gluteal abscess; Chronic pain of right hand; Left hand pain; Type 2 diabetes mellitus without complication, without long-term current use of insulin (CMS/HCC) Social History Tobacco Use Types Packs/Day Years [...] Mass Index 24.18 06/02/2024 10:00 AM EDT documented in this encounter Plan of Treatment Upcoming Encounters Date Type Department Care Team (Late st Contact Info) Description 06/04/2024 2:00 PM EDT Clinical Support [facility] [address] [place] [address] Ester Chatman, RN Scheduled Orders Name Type Priority Associated Diagnoses Orde r Schedule EMG Neurology Routine Chronic pain of right hand Left hand pain Expected: 06/02/2024 (Approximate), Expires: 06/02/2025 Nerve conduction test Neurology Routine Chronic pain of right hand Left hand pain Expected: 06/02/2024 (Approximate), Expires: 06/02/2025 Scheduled Referrals Name Type Priority Associated Diagnoses Orde r Schedule Referral to Wound Clinic Outpatient Referral Urgent Gluteal abscess Expected: 06/02/2024 (Approximate), Expires: 06/02/2025 documented as of this encounter Procedures Procedure Name Priority Date/Time Associated Diagnosis Comments POCT GLYCATED HEMOGLOBIN, TOTAL Routine 06/02/2024 10:07 AM EDT Type 2 diabetes mellitus without complication, without long-term current use of insulin ([facility]) POCT GLUCOSE Routine 06/02/2024 10:04 AM EDT Type 2 diabetes mellitus without complication, without long-term current use of insulin ([facility]) documented in this encounter Results * (ABNORMAL) POCT HGB A1C (06/02/2024 10:07 AM EDT) Hemoglobin A1C 7.6(A) 4.0 - 6.0 % QC [employer] Lot # [id number] Lot# Expiration Date Blood 06/02/2024 10:0 7 AM EDT Amna Richards DO POINT OF CARE TEST ENTER/LOU T ORDERABLES Final Result * POCT Glucose (06/02/2024 10:04 AM EDT) Pathologist [facility] Glucose Blood, POC 200 60 - 200 mg/dL [employer] Lot # [id number] Lot# Expiration Date [id number] Blood Capillary blood specimen / Unknown 06/02/2024 10:04 AM EDT Amna Richards DO POINT OF CARE TEST ENTER/LOU T ORDERABLES Final Result documented in this encounter Visit Diagnoses Diagnosis Closed fracture of orbit, initial encounter ([facility])- Primary COPD with asthma ([facility]) Gluteal abscess Cellulitis and abscess of buttock Chronic pain of right hand Left hand pain Pain in soft tissues of limb Type 2 diabetes mellitus without complication, without long-term current use of insulin ([facility]) documented in this encounter Additional Health Concerns Assessment Noted Time PHQ-9 Depression Total Score: 11 024 1:53 PM EDT documented as of this encounter Care Teams Heel Cover Softener Relationship Specialty Start Date End Date Amna Richards DO [address] [place] [address] PCP - General Family Medicine 10/12/23 [facility] 05/08/24 documented as of this encounter
--- OUTSIDE RECORDS SUMMARY | 2024-06-03 17:49 | XMS_ITS | Encounter Summary ---
Author Organization [employer] Address 75 [facility] 7t [place] [address] Care Team Providers Care Watch Commander Name Role Phone Amna Richards DO Primary Care Provider + [phone] Reason for Visit * Reason Onset Date Comments Med Refill 05/27/2024 Encounter Details Date Type Department Care Team (Late st Contact Info) Description 05/27/2024 Refill [facility] [address] [place], [place] [phone] Amna Richards DO [address] [place], [place] [phone] Social History Tobacco Use Types Packs/Day Years [...] 5 MG tablet To be sent to: [facility]/pharmacy [address] [place] [address] documented in this encounter Plan of Treatment Upcoming Encounters Date Type Department Care Team (Late st Contact Info) Description 06/04/2024 2:00 PM EDT Clinical Support [facility] [address] [place] [address] Ester Chatman RN documented as of this encounter Visit Diagnoses Not on filedocumented in this encounter Additional Health Concerns Assessment Noted Time PHQ-9 Depression Total Score: 11 024 1:53 PM EDT documented as of this encounter Care Teams Watch Commander Relationship Specialty Start Date End Date Amna Richards DO [address] [place] [address] PCP - General Family Medicine 10/12/23 [facility] 05/08/24 documented as of this encounter
--- OUTSIDE RECORDS SUMMARY | 2024-06-03 17:49 | XMS_ITS | Encounter Summary ---
Author Organization [employer] [facility] Address [address] [place] [address] 7t [place] [address] Care Team Providers Care Drawer In Jacquard Loom Name Role Phone Amna Richards DO Primary Care Provider + [phone] Reason for Referral * Consultation (Routine) - Pending Review Specialty Diagnoses / Procedures Referred By Contnoemi t Referred To Contact Endocrinology Diagnoses Type 2 diabetes mellitus without complication, without long-term current use of insulin (CMS/HCC) Amna Richards DO [address] [place] [address] Phone: tel: fax: Referral ID Status Reason Start Date Expiration Date Visits Requested Visits Authorized [id number] Pending Review Specialty Services Required 05/26/2024 05/26/2025 1 1 Encounter Details Date Type Department Care Team (Late st Contact Info) Description 05/26/2024 Orders Only [facility] [address] [place] [address] Amna Richards DO [address] [place], [place] [phone] Type 2 diabetes mellitus without complication, without [...] Description 06/04/2024 2:00 PM EDT Clinical Support [facility] [address] [place] [address] Ester Chatman, JACOB Scheduled Referrals Name Type Priority Associated Diagnoses [...] documented as of this encounter Care Teams Drawer In Jacquard Loom Relationship Specialty Start Date End Date Amna Richards DO [address] [place] [address] PCP - General Family Medicine 10/12/23 [facility] 05/08/24 documented as of this encounter
--- OUTSIDE RECORDS SUMMARY | 2024-06-03 17:49 | XMS_ITS | Encounter Summary ---
Author Organization [employer] Address 75 [facility] 7t [place] [address] Care Team Providers Care Dredge Pipe Installer Name Role Phone SusieAmna Primary Care Provider + [phone] Encounter Details Date Type Department Care Team [...] PM EDT Clinical Support [facility]INE [address] [place] [address] Ester Chatman RN documented as of this encounter Visit Diagnoses Not on filedocumented in this encounter Additional Health Concerns Assessment Noted Time PHQ-9 Depression Total Score: 11 024 1:53 PM EDT documented as of this encounter Care Teams Dredge Pipe Installer Relationship Specialty Start Date End Date Amna Richards DO [address] [place] [address] PCP - General Family Medicine 10/12/23 [facility] 05/08/24 documented as of this encounter
--- OUTSIDE RECORDS SUMMARY | 2024-06-03 17:49 | XMS_ITS | Encounter Summary ---
Author Organization [employer] Address 75 [facility] 7t [place] [address] Care Team Providers Care Bobbin Winder Tender Name Role Phone Amna Richards DO Primary Care Provider + [phone] Amna Richards DO Primary Care Provider [phone] Candace Quiñones MD Primary Care Pro vider Amna Richards DO Primary Care Provider + [phone] Reason for Visit * Reason Onset Date Comments Med Refill 05/31/2022 Encounter Details Date Type Department Care Team (Late st Contact Info) Description 05/31/2022 Telephone [facility] [address] [place], [place] [phone] Amna Richards DO [address] [place], [place] [phone] Med Refill Social History Tobacco Use Types [...] for HDF outreach. Patient was admitted to [facility] on 06/08/2022 and was discharged on [...] Wednesdays, and Walk-In Urgent Care Located in [place] [facility]. Patient provided with after-hours line for [facility], , which offer night time triage service and option to transfer to pest control service sales agent provider if needed. CC will request Discharge [...] Nebulizer medication. Albuterol Sulfate Please sent to [facility] [address] [facility] documented in this encounter Plan of Treatment Upcoming Encounters Date Type Department Care Team ([facility] st Contact Info) Description 06/04/2024 2:00 PM EDT Clinical Support [facility] [address] [place] [address] Lurdes, Ester, RN documented as of this encounter Visit Diagnoses Not on filedocumented in this encounter Additional Health Concerns Assessment Noted Time PHQ-9 Depression Total Score: 11 023 12:04 PM EST documented as of this encounter Care Teams Bobbin Winder Tender Relationship Specialty Start Date End Date Amna Richards DO [address] [place] [address] PCP - General Family Medicine 03/19/18 07/20/22 Amna Richards DO [address] [place] [address] PCP - General Family Medicine 07/21/22 07/23/22 Candace Quiñones MD [address] [place] [address] PCP - General Internal Medicine 07/24/22 10/11/23 Amna Richards DO [address] [place], [place] [phone] PCP - General Family Medicine 10/12/23 [facility] 05/08/24 documented as of this encounter
--- OUTSIDE RECORDS SUMMARY | 2024-06-03 17:49 | XMS_ITS | Encounter Summary ---
Author Organization [employer] Address 75 [facility] 7t [place] [address] Care Team Providers Care Shoe Repairer Name Role Phone Amna Richards DO Primary Care Provider + [phone] Reason for Visit * Reason Onset Date Comments Referral 05/23/2024 Encounter Details Date Type Department Care Team ([facility] st Contact Info) Description 05/23/2024 Telephone [facility] [address] [place], [place] [phone] Amna Richards DO [address] [place] [address] Referral Social History Tobacco Use Types Packs/Day [...] 4:16 PM EST TC placed to patient [phone] in regards to below message. Patient did not answer, RN left VM requesting CB to red team nurses. Patient to f/u PRN. * Telephone Encounter - Melissa Newman - 05/23/2024 10:19 AM EST Tc from pt stating that he doesn't have a DrBryan who can help him with Diabetes and requests a referral for [facility] [place] Dr. Paidlla [address] [place] [address] [facility] [address] documented in this encounter Plan of Treatment Upcoming Encounters Date Type Department Care Team (Late st Contact Info) Description 06/04/2024 2:00 PM EDT Clinical Support [address] [phone] Lurdes, Ester, RN documented as of this encounter Visit Diagnoses Not on filedocumented in this encounter Additional Health Concerns Assessment Noted Time PHQ-9 Depression Total Score: 11 024 1:53 PM EDT documented as of this encounter Care Teams Shoe Repairer Relationship Specialty Start Date End Date Amna Richards DO [address] [place] [address] PCP - General Family Medicine 10/12/23 [facility] 05/08/24 documented as of this encounter
--- OUTSIDE RECORDS SUMMARY | 2024-06-03 17:49 | XMS_ITS | Encounter Summary ---
Author Organization [employer] Address 75 [facility] 7t [place] [address] Care Team Providers Care Feed Mill Manager Name Role Phone Amna Richards DO Primary Care Provider + [phone] Reason for Visit * Reason Comments Med Refill Encounter Details Date Type Department Care Team ([facility] st Contact Info) Description 05/22/2024 Refill [facility] [address] [place], [place] [phone] Amna Richards DO [address] [place], [place] [phone] Social History Tobacco Use Types Packs/Day Years [...] Description 06/04/2024 2:00 PM EDT Clinical Support [facility] [address] [place] [address] Ester Chatman RN documented as of this encounter Visit Diagnoses Not on filedocumented in this encounter Additional Health Concerns Assessment Noted Time PHQ-9 Depression Total Score: 11 024 1:53 PM EDT documented as of this encounter Care Teams Feed Mill Manager Relationship Specialty Start Date End Date Amna Richards DO [address] [place] [address] PCP - General Family Medicine 10/12/23 [facility] 05/08/24 documented as of this encounter
--- OUTSIDE RECORDS SUMMARY | 2024-06-03 17:49 | XMS_ITS | Encounter Summary ---
Author Organization [employer] Address 75 [facility] 7t [place] [address] Care Team Providers Care Wire Machine Operator Name Role Phone Amna Richards DO Primary Care Provider + [phone] Reason for Visit * Reason Comments Care Coordination [facility] telephone call outreach Encounter Details Date Type Department Care Team (Latest Contact Info) Description 05/28/2024 Patient Outreach [facility] MED[facility]INE [address] [place] [address] Amna Richards DO [address] [place] [address] Care Coordination ([facility] telephone call outreach) Social History Tobacco [...] to offer services. CHW introducing herself from [facility] CM Department with CHW's name, department and direct contact number requesting call back. Will re-attempt to contact within 5 days. and address not confirmed. documented in this encounter Plan of Treatment Upcoming Encounters Date Type Department Care Team (Late st Contact Info) Description 06/04/2024 2:00 PM EDT Clinical Support [facility] MED[facility]INE [address] [place] [address] Ester Chatman RN documented as of this encounter Visit Diagnoses Not on filedocumented in this encounter Additional Health Concerns Assessment Noted Time PHQ-9 Depression Total Score: 11 024 1:53 PM EDT documented as of this encounter Care Teams Wire Machine Operator Relationship Specialty Start Date End Date Amna Richards DO [address] [place] [address] PCP - General Family Medicine 10/12/23 [facility] 05/08/24 documented as of this encounter
--- OUTSIDE RECORDS SUMMARY | 2024-06-03 17:49 | XMS_ITS | Encounter Summary ---
Author Organization [employer] Address 75 [facility] 7t [place] [address] Care Team Providers Care Social Media Specialist Name Role Phone Amna Richards DO Primary Care Provider + [phone] Reason for Visit * Reason Comments Med Refill Encounter Details Date Type Department Care Team ([facility] st Contact Info) Description 05/16/2024 Refill [facility] [address] [place], [place] [phone] Amna Richards DO [address] [place], [place] [phone] Social History Tobacco Use Types Packs/Day Years [...] Description 06/04/2024 2:00 PM EDT Clinical Support [facility] [address] [place] [address] Ester Chatman RN documented as of this encounter Visit Diagnoses Not on filedocumented in this encounter Additional Health Concerns Assessment Noted Time PHQ-9 Depression Total Score: 11 024 1:53 PM EDT documented as of this encounter Care Teams Social Media Specialist Relationship Specialty Start Date End Date Amna Richards DO [address] [place] [address] PCP - General Family Medicine 10/12/23 [facility] 05/08/24 documented as of this encounter
--- OUTSIDE RECORDS SUMMARY | 2024-06-03 17:49 | XMS_ITS | Encounter Summary ---
Author Organization [employer] Address [address] [place] [address] 7[address] [place] [address] Care Team Providers Care Foundry Superintendant Name Role Phone Amna Richards DO Primary Care Provider [phone] Reason for Referral * Consultation (Routine) - Canceled Specialty Diagnoses / Procedures Referred By Contnoemi t Referred To Contact Occupational Therapy Diagnoses Chronic pain of right hand Anma Richards DO [address] [place] [address] Phone: tel: fax: Referral ID Status Reason Start Date Expiration Date Visits Requested Visits Authorized [id number] Canceled Specialty Services Required 05/16/2024 05/16/2025 1 1 Encounter Details Date Type Department Care Team (Late st Contact Info) Description 05/16/2024 9:15 AM EST Office Visit [facility] [address] [place] [id number] Amna Richards DO [address] [place] [address] Chronic pain of right hand (Primary Dx); Type 2 diabetes mellitus without complication, without long-term current use of insulin ([facility]) Social History Tobacco Use Types Packs/Day [...] Description 06/04/2024 2:00 PM EDT Clinical Support [address] [address] Ester Chatman, JACOB Scheduled Referrals Name Type Priority Associated Diagnoses Order Schedule Referral to Occupational Therapy Outpatient Referral Routine Chronic pain of right hand Expected: 05/16/2024 (Approximate), Expires: 05/16/2025 documented as of this encounter Procedures Procedure Name Priority Date/Time Associated Diagnosis Comments POCT GLYCATED HEMOGLOBIN, TOTAL Routine 05/16/2024 9:30 AM EST Type 2 diabetes mellitus without complication, without long-term current use of insulin ([facility]) POCT GLUCOSE Routine 05/16/2024 9:29 AM EST Type 2 diabetes mellitus without complication, without long-term current use of insulin ([facility]) documented in this encounter Results * (ABNORMAL) POCT HGB A1C (05/16/2024 9:30 AM EST) Hemoglobin A1C 8.5(A) 4.0 - 6.0 % QC Media Lot # [id number] Lot# Expiration Date , 6 Blood 05/16/2024 9:30 AM EST Amna Richards DO POINT OF CARE TEST ENTER/LOU T ORDERABLES Final Result * (ABNORMAL) POCT Glucose (05/16/2024 9:29 AM EST) Glucose Blood, POC 226(A) 60 - 200 mg/dL QC Media Lot # [id number] Lot# Expiration Date , Blood Capillary blood specimen / Unknown 05/16/2024 9:29 AM EST Amna Richards DO POINT OF CARE TEST ENTER/LOU T ORDERABLES Final Result documented in this encounter Visit Diagnoses Diagnosis Chronic pain of right hand- Primary Type 2 diabetes mellitus without complication, without long-term current use of insulin ([facility]) documented in this encounter Additional Health Concerns Assessment Noted Time PHQ-9 Depression Total Score: 11 024 1:53 PM EDT documented as of this encounter Care Teams Foundry Superintendant Relationship Specialty Start Date End Date Amna Richards DO [address] [place] [address] PCP - General Family Medicine 10/12/23 [facility] 05/08/24 documented as of this encounter
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
--- OUTSIDE RECORDS SUMMARY | 2024-06-03 17:49 | XMS_ITS | Encounter Summary ---
Author Organization [employer] Address [address] [facility] [address] [place] [address] Care Team Providers Care Wood Crafter Name Role Phone Amna Richards DO Primary Care Provider + [phone] Reason for Visit * Reason Onset Date Comments Nurse Triage 05/21/2024 Encounter Details Date Type Department Care Team ([facility] st Contact Info) Description 05/21/2024 Telephone [facility] [address] [place] [address] Amna Richards DO [address] [place] [address] Nurse Triage Social History Tobacco Use Types [...] RN - 05/21/2024 3:[address] certified court/medical interpreter needed as 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 Call returned to Aldo Breaux for triage below. No answer LVM to return call to [facility] triage line [phone]. * Telephone Encounter - Melissa Newman - 05/21/2024 1:25 PM EST Symptom: Itching - No Rash Outcome: Schedule an urgent appointment (within 4 hours) or talk to a nurse or provider soon Reason: Severe itching now The caller accepted this outcome. [phone] [email or web address] documented in this encounter Plan of Treatment Upcoming Encounters Date Type Department Care Team (Late st Contact Info) Description 06/04/2024 2:00 PM EDT Clinical Support [facility] [address] [place] [address] Ester Chatman, RN documented as of this encounter Visit Diagnoses Not on filedocumented in this encounter Additional Health Concerns Assessment Noted Time PHQ-9 Depression Total Score: 11 024 1:53 PM EDT documented as of this encounter Care Teams Wood Crafter Relationship Specialty Start Date End Date Amna Richards DO [address] [place] [address] PCP - General Family Medicine 10/12/23 [facility] 05/08/24 documented as of this encounter
--- OUTSIDE RECORDS SUMMARY | 2024-06-03 17:49 | XMS_ITS | Encounter Summary ---
Author Organization [employer] Address [address] [facility] 7[address] [place] [address] Care Team Providers Care Legal Intern Name Role Phone Susie Amna Primary Care Provider + [phone] Encounter Details Date Type Department Care Team ([facility] st Contact Info) Description 05/30/2024 Population Health Risk Score [facility] ([facility] Department [address] [facility] [address] [place] [address] Provider, Population Health Generic Social [...] Description 06/04/2024 2:00 PM EDT Clinical Support [facility] [address] [place] [address] Ester Chatman, JACOB documented as of this encounter Visit Diagnoses Not on filedocumented in this encounter Additional Health Concerns Assessment Noted Time PHQ-9 Depression Total Score: 11 024 1:53 PM EDT documented as of this encounter Care Teams Legal Intern Relationship Specialty Start Date End Date Amna Richards DO [address] [place] [address] PCP - General Family Medicine 10/12/23 [facility] 05/08/24 documented as of this encounter
== END 2024-06-03 15:29 | disposition home or self-care (01) ==
LOC: HO.ENCR 14:56
PROVIDERS: PCP Family Medicine; Visit Provider Internal Medicine Endocrinology, Diabetes & Metabolism
DX: M81.0 Age-related osteoporosis without current pathological fracture (principal)
CPT/HCPCS: 99213

== ENCOUNTER → 2024-06-03 14:55 | Outpatient (BNVA) | payer MEDICAID, SELFPAY | PROVIDERS: PCP Family Medicine; Visit Provider Internal Medicine Endocrinology, Diabetes & Metabolism | DX: M81.0 Age-related osteoporosis without current pathological fracture (principal); E11.9 Type 2 diabetes mellitus without complications | CPT/HCPCS: 99212 ==

== ENCOUNTER 2024-06-15 23:17 | Inpatient (IN) | payer MEDICAID, SELFPAY ==
--- NOTE | 2024-06-15 | ECG_ITS ---
Test Reason : SOB CP Blood Pressure : */* mmHG Vent. Rate : 114 BPM Atrial Rate : 117 BPM P-R Int : 128 ms QRS Dur : 66 ms QT Int : 286 ms P-R-T Axes : 22 47 56 degrees QTcB Int : 394 ms Sinus tachycardia Otherwise normal ECG When compared with ECG of 29-Feb-2024 14:29, No significant changes seen Referred By: Generic ED Physician Electronically Signed By: LORI VERDIN
--- NOTE | ~2024-06-15 | XR_ITS ---
CLINICAL HISTORY: cough 1 view chest x-ray Comparison: CR/SR - XR CHEST 2V - 02/29/24 14:27 EST Findings: Mild left lower lobe atelectasis. No significant pleural effusion or pneumothorax. Possible mediastinal calcified granulomas, similar to prior. Similar prominent/enlarged cardiac silhouette. No acute fracture. 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 IMPRESSION: Mild left lower lobe atelectasis. This document has been electronically signed by: Owen De Souza MD on 06/16/2024 00:13:46
[2024-06-15 23:36] VITALS: BP 129/77; PULSE 112; RESP 24; TEMP 37.8; O2SAT 93; BMI 24.3
[2024-06-15 23:42] LABS: Basophils Percent Auto 0.2 % (0-2); Eosinophils Absolute Auto 0.1 X10*3/uL (0.0-0.4); Hemoglobin 13.8 g/dl (14.0-18.0); Imm Gran Abs Auto 0.18 X10*3/uL (0.00-0.03); Imm Gran Pct Auto 1.3 % (0.0-0.4); Lymphocytes Absolute Auto 0.9 X10*3/uL (1.2-4.9); Lymphocytes Percent Auto 6.4 % (20-40); MANUAL DIFF FLAG NO; Mean Corpuscular HGB Conc 32.9 g/dl (31.0-36.0); Mean Corpuscular Hemoglobin 30.7 pg (27.0-33.0); Mean Corpuscular Volume 93.3 fL (80.0-98.0); Monocytes Percent Auto 7.2 % (2-11); Neutrophils Absolute Auto 11.5 x10*3/uL (2.0-8.3); Neutrophils Percent Auto 83.9 % (45-73); Platelet Count 272 X10*3/uL (160-400); Red Cell Distribution Width 14.6 % (11.0-16.0); WBC ABN SCTR 1; WBC ABN SCTR FOR CBC 1; White Blood Count 13.7 X10*3/uL (4.8-10.8)
[2024-06-15 23:56] LABS: Alanine Aminotransferase 19 U/L (0-40); Alkaline Phosphatase 58 U/L (39-117); Anion Gap 11 (12-20); Aspartate Amino Transferase 18 U/L (5-37); Bilirubin Total 0.3 mg/dL (0.0-1.0); Blood Urea Nitrogen 10 mg/dL (9-16); Calcium 8.9 mg/dL (8.4-10.2); Carbon Dioxide 29 mmol/L (22-29); Chloride 102 mmol/L (96-108); Creatinine Clr Calc Pharmacy 117.3; Estimated Glomerular Filt Rate > 60; Glucose Random 104 mg/dL (60-115); Lipase 23 U/L (8-78); Magnesium 1.9 mg/dL (1.6-2.6); Potassium 4.3 mmol/L (3.3-5.1); Sodium 138 mmol/L (135-145); Total Protein 6.7 g/dL (6.5-8.0)
[2024-06-16] VITALS (13 sets, daily range): BP systolic 110–156; BP diastolic 62–84; PULSE 78–111; RESP 18–29; TEMP 36.8–37.7; O2SAT 90–97
[2024-06-16 00:03] LABS: Troponin-I High Sensitivity 7.2 ng/L (<3.5-35.0)
[2024-06-16] MEDS: Albuterol Sulfate 2.5 MG, Albuterol/Iprat 2.5/0.5MG 3 ML 3 ML INHALE (00:12)
--- NOTE | 2024-06-16 00:17 | ED_ITS ---
HPI - SOB/Dyspnea General Chief Complaint: Dyspnea Stated Complaint: chest pain, SOB Time Seen by Provider: 06/16/24 00:16 Source: patient Mode of arrival: ambulatory Limitations: no limitations History of Present Illness ED Provider: Dr. Jesus Falcon HPI Narrative: 54-year-old male with a history of DVT 1.5 years prior, on Eliquis, pneumonia, asthma/COPD, anxiety, depression, hypertension, hyperlipidemia, GERD, irritable bowel syndrome, who presents emergency department for evaluation of chest pain, shortness of breath, cough, sore throat, nausea with no vomiting or diarrhea x2 days. Patient was been using his nebulizer machine at home with no relief his symptoms. Patient was vital signs revealed an elevated pulse of 112, elevated respiratory rate of 24, fever of 100.1 degrees F O2 saturation of 93% on room air. Patient states that he has been sick for proximally 2 days. He states that he has a cough which is nonproductive. He also states that he was chest tightness which is worse with coughing, breathing and using his nebulizers. He has been using his nebulizer frequently with no improvement of his symptoms. He states he feels short of breath at rest and has significant dyspnea on exertion. He also states he was feeling very weak. The patient was lost his appetite in his not been eating but has been drinking water. 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 Patient states that he was admitted to [facility] a proximally 3 weeks prior for difficulty breathing and was there for 1 week. Related Data Home Medications ?Medication ?Instructions ?Recorded ?Confirmed amlodipine 5 mg tablet 5 mg PO DAILY 05/28/21 03/25/24 atorvastatin 10 mg tablet 10 mg PO BEDTIME 05/28/21 03/25/24 metoprolol succinate 25 mg 25 mg PO DAILY 05/28/21 03/25/24 tablet,extended release 24 hr clotrimazole 1 % topical cream appl topical 07/26/21 03/25/24 nebulizers 06/14/22 03/25/24 codeine 10 mg-guaifenesin 100 mg/5 10 ml PO Q6H PRN cough 01/11/23 03/25/24 mL oral liquid ergocalciferol (vitamin D2) 1,250 1,250 mcg PO QWEEK 01/11/23 03/25/24 mcg (50,000 unit) capsule insulin glargine 100 unit/mL (3 7 unit subcut BEDTIME 01/11/23 03/25/24 mL) subcutaneous pen (Lantus Solostar U-100 Insulin) losartan 25 mg tablet 25 mg PO QAM 01/11/23 03/25/24 metformin 1,000 mg tablet 1,000 mg PO 01/11/23 03/25/24 montelukast 10 mg tablet 10 mg PO BEDTIME 01/11/23 03/25/24 sitagliptin phosphate 25 mg tablet 25 mg PO QAM 01/11/23 03/25/24 (Januvia) zafirlukast 20 mg tablet 20 mg PO BID 01/11/23 03/25/24 alendronate 70 mg tablet 70 mg PO QWEEK 02/07/23 03/25/24 Previous Rx's ?Medication ?Instructions ?Recorded nystatin 100,000 unit/gram topical 1 appl topical TID #15 grams 07/26/21 cream albuterol sulfate 90 mcg/actuation 2 puff PO Q6H PRN for dyspnea #18 01/09/23 aerosol inhaler (Ventolin HFA) ea ipratropium bromide 17 2 puff inhalation QID 30 days 01/09/23 mcg/actuation HFA aerosol inhaler #12.9 grams (Atrovent HFA) magnesium citrate 150 ml PO DAILY 2 days #300 mL 02/07/23 bisacodyl 5 mg tablet,delayed 15 mg (3 x 5 mg) PO BEDTIME 30 03/21/23 release (Dulcolax (bisacodyl)) days #120 tabs docusate sodium 100 mg capsule 100 mg PO .bid with food 30 days 03/21/23 (Colace) #60 caps linaclotide 290 mcg capsule 290 mcg PO QAM #30 caps 03/21/23 (Linzess) itvila-alzdauko-pksuvpm 1 cap PO QID 30 days #120 caps 03/21/23 24,000-76,000-120,000 unit capsule,delayed rel (Creon) peg 3350-electrolytes 236 240 ml PO Q10M 1 day #4,000 mL 03/21/23 gram-22.74 gram-6.74 gram-5.86 gram solution (Golytely) simethicone 180 mg capsule 180 mg PO QID 30 days #120 caps 03/21/23 tiotropium bromide 18 mcg capsule 1 cap inhalation DAILY 30 days #30 06/14/23 with inhalation device (Spiriva inhalations with HandiHaler) apixaban 5 mg tablet (Eliquis) 5 mg PO BID #120 tabs 08/11/23 magnesium hydroxide 400 mg/5 mL 400 mg (5 mL) PO DAILY PRN 10/01/23 oral suspension (Dulcolax constipation #3,780 mL (magnesium hydroxide)) roflumilast 250 mcg tablet 250 mcg PO DAILY 30 days #30 tabs 10/09/23 (Daliresp) hydrochlorothiazide 12.5 mg tablet 12.5 mg PO DAILY #90 tabs 10/22/23 teriparatide 20 mcg/dose (600 20 mcg (0.08 mL) subcut DAILY #2.4 10/25/23 mcg/2.4 mL) subcutaneous pen mL injector (Forteo) omeprazole 40 mg capsule,delayed 40 mg PO DAILY #90 caps 12/10/23 release hydrocodone 5 mg-acetaminophen 325 1 tab PO Q4-6H PRN pain #5 tabs 02/04/24 mg tablet baclofen 20 mg tablet 20 mg PO TID PRN muscle spasm 30 04/14/24 days #90 tabs cholecalciferol (vitamin D3) 50 50 mcg PO DAILY #90 tabs 04/15/24 mcg (2,000 unit) tablet (Vitamin D3) prednisone 10 mg tablet 20 mg (2 x 10 mg) PO DAILY #60 tabs 04/23/24 famotidine 40 mg tablet 40 mg PO BEDTIME #90 tabs 05/22/24 fluticasone furoate 200 1 inh inhalation DAILY 30 days #60 05/30/24 mcg-vilanterol 25 mcg/dose ea inhalation powder (Breo Ellipta) ipratropium 20 mcg-albuterol 100 1 puff inhalation Q6H #4 grams 05/30/24 mcg/actuation mist for inhalation (Combivent Respimat) levofloxacin 500 mg tablet 500 mg PO DAILY 14 days #14 tabs 05/30/24 nicotine (polacrilex) 2 mg gum 2 mg buccal Q2H 30 days #120 ea 05/30/24 (Nicorette) nicotine 14 mg/24 hr daily 1 patch transdermal DAILY 28 days 05/30/24 transdermal patch #28 ea umeclidinium 62.5 mcg/actuation 1 inh inhalation DAILY 30 days #30 05/30/24 blister powder for inhalation ea (Incruse Ellipta) varenicline tartrate 0.5 mg (11)-1 See Rx Instructions PO PER PKG DIR 05/30/24 mg (42) tablets in a dose pack #42 ea (Chantix Starting Month Box) bupropion HCl 75 mg tablet 150 mg (2 x 75 mg) PO BID #120 tabs 06/09/24 Allergies Allergy/AdvReac Type Severity Reaction Status Date / Time ibuprofen [From Motrin] Allergy Intermediate Rash Verified 06/15/24 23:37 Review of Systems 2 Review of Systems: Yes all other systems are reviewed and are negative [facility] Past Medical History [facility] Narrative: Social history: Patient was smokes 8 cigarettes per per day, he has been on a nicotine patch for 3 days in his not been smoking. Patient has been smoking for 39 years. He denies alcohol and drug use. Medical History (Updated 06/16/24 @ 00:51 by Jesus Falcon MD) Pneumonia Atelectasis Viral syndrome History of COVID-19 Leukocytosis Hyperlipidemia Personal history of nicotine dependence Back pain Arthritis Anxiety and depression Asthma History of kidney stones Chronic abdominal pain Tubular adenoma of colon (~2019) Asthma-COPD overlap syndrome Osteoporosis (~2001) Irritable bowel syndrome GERD (gastroesophageal reflux disease) COPD (chronic obstructive pulmonary disease) HTN (hypertension) Surgical History History of bilateral hip replacements History of colonoscopy with polypectomy (~2020) History of colonoscopy (~2005) History of surgery on right wrist (~2014) History of hip surgery (~2001) S/P extracorporeal shock wave therapy (~2013) History of hydrocelectomy Shoulder symptoms with history of shoulder arthroplasty Family History Family History Father No problems noted. Mother No problems noted. Son No problems noted. Daughter No problems noted. Social History Social History Unable to assess alcohol history related to: Unknown Alcohol intake: unknown Patient Tobacco Use Status: Current everyday Tobacco user Tobacco use type: Cigarette Cigarette Packs Per Day: 0.5 Cigarettes Per Day: 7 Years Smoked: (onset 14yo, 1/2-3/4ppd x 37yrs, 23pyh) Smoked in Last 30 Days: Yes Second Hand Smoke Exposure: No Use of substances other than those prescribed or required for medical reasons: No Advance Directives: Yes Advance Directives on File: Yes Advance Directives Date on File: 05/30/21 Do you have a plan to hurt others: No Plan service: No Current occupational status: disabled Current occupation: rt handed Physical Exam 2 Vital Signs: Vital Signs: Last Vital Signs Temp 100.1 F 06/15/24 23:36 Pulse 104 H 06/16/24 00:11 Resp 22 H 06/16/24 00:11 BP 129/77 06/15/24 23:36 Pulse Ox 93 06/15/24 23:36 O2 Del Method Room Air 06/15/24 23:36 BMI result Body Mass Index 24.3 Vital signs revealed a low grade fever of 100.1 degrees F, elevated heart rate of 104, elevated respiratory rate of 22. Blood pressure was normal 129/77 and O2 saturation was normal at 93% on room air Exam: General: Awake, alert, dyspneic and tachypneic, he was able to speak in full sentences Head: Normocephalic, atraumatic EENT: PERRL, Lids normal, sclera normal, conjunctiva normal, nose normal , ears normal, throat without erythema or exudates Neck: Supple, no adenopathy Lung: breath sounds symmetric, no wheezing, rales or rhonchi Chest: Diffuse wheezing with rales at the bases, no rhonchi, breath sounds symmetric Heart: regular rate and rhythm, normal S1, S2 no murmurs or rubs Abdomen: soft, non-tender, nondistended, normal bowel sounds Back: no vertebral tenderness, no CVAT Extremities: no deformities, moves all extremities symmetrically Neuro: Awake, alert, oriented, normal speech, cranial nerves intact, moves all extremities symmetrically Psych: Pleasant, cooperative Medications Administered Generic Name Dose Route Start Last Admin Trade Name Freq PRN Reason Stop Dose Admin Sodium Chloride 2,175 mls @ 2,175 mls/hr 06/16/24 00:36 06/16/24 00:38 Ns 30 ml/kg infuse over 1 hr (2175 ml) 06/16/24 01:35 2,175 mls/hr IV Administration .Q1H STA Lactated Ringer's 1,000 mls @ 100 mls/hr 06/16/24 01:00 06/16/24 01:00 Lr IVCONT 100 mls/hr .Q10H RAHEL Administration Doxycycline Hyclate 100 mg/ 250 mls @ 166.67 mls/hr 06/16/24 00:55 06/16/24 01:00 Sodium Chloride IV 06/16/24 02:24 166.67 mls/hr ONCE ONE Administration Discontinued Medications Generic Name Dose Route Start Last Admin Trade Name Freq PRN Reason Stop Dose Admin Ceftriaxone Sodium 1 gm 06/16/24 00:36 06/16/24 00:55 Ceftriaxone Sodium 1 Gm Vial IVPUSH 06/16/24 00:37 1 gm ONCE ONE Administration Albuterol Sulfate 2.5 mg/ 0 mg 06/16/24 00:10 06/16/24 00:12 Albuterol/Ipratropium 3 ml INHALE 06/16/24 00:11 1 dose ONCE ONE Administration Methylprednisolone Sodium Succinate 125 mg 06/16/24 00:36 06/16/24 00:57 Methylprednisolone Sod Succ 125 Mg/2 Ml Vial IVPUSH 06/16/24 00:37 125 mg ONCE ONE Administration Morphine Sulfate 4 mg 06/16/24 00:36 06/16/24 00:56 Morphine Sulfate 4 Mg/Ml Cartridge IVPUSH 06/16/24 00:37 4 mg ONCE STA Administration Protocol Oseltamivir Phosphate 75 mg 06/16/24 00:48 06/16/24 00:57 Oseltamivir Phosphate 75 Mg Capsule PO 06/16/24 00:49 75 mg ONCE ONE Administration Medical Decision Making Medical Decision Making MDM Narrative: 54-year-old male with a history of DVT 1.5 years prior on Eliquis,pneumonia, asthma/COPD, anxiety, depression, hypertension, hyperlipidemia, GERD, irritable bowel syndrome, who presents emergency department for evaluation of chest pain, shortness of breath, cough, sore throat, nausea with no vomiting or diarrhea x2 days. Patient states that the cough is nonproductive, and despite using his nebulizer he was feeling worse. Patient he was lost his appetite but he was able to drink fluids. He does have myalgias and arthralgias. Patient was vital signs revealed an elevated pulse of 112, elevated respiratory rate of 24, fever of 100.1 degrees F O2 saturation of 93% on room air. On exam patient was dyspneic and tachypneic, speaking in full sentences, lung exam revealed diffuse wheezing and rales with no rhonchi, breath sounds were symmetric bilaterally. 00:43 Differential diagnosis: ?Includes but is not limited to bronchitis, exacerbation of chronic lung disease, pneumonia, viral syndrome, influenza, COVID-19, RSV, anemia, electrolyte abnormalities Course: 00:43 The patient met sirs criteria with an elevated heart rate and an elevated respiratory rate. Patient was made a sepsis protocol. Patient was given albuterol 5 mg and ipratropium 0.5 mg by nebulizer as per bronchodilator protocol. He was also treated with Solu-Medrol 125 mg IV and morphine 4 mg IV for his dyspnea and his pleuritic chest pain. I ordered a 30 cc/kilogram normal saline bolus (2175 mL). Patient's chest x-ray is concerning for possible left lower lobe infiltrate versus atelectasis, therefore I ordered ceftriaxone 1 g IV and azithromycin 500 mg IV. My independent interpretation patient's laboratory evaluation is as follows: WBC elevated 13,700. CMP was normal. COVID-19 and RSV were negative. Lactic acid was normal at 2.0. BNP was normal at 38. VBG revealed a normal pH of 7.41, normal CO2 of 45 and a slightly high bicarb at 29. Influenza test was positive for influenza A. Given this finding the patient was treated with Tamiflu 75 mg orally. I did discuss admission with the covering hospitalist, Dr. Blancas and he requested that the patient received doxycycline as opposed to azithromycin IV. The patient will be admitted to the hospitalist service for further management. Admission/Observation Consideration of admission/observation: Escalation of care including admission/observation considered (Yes) Consult Healthcare Provider Management of the patient was discussed with: Hospitalist (Dr. Blancas) Lab Data MDM Lab Attestation statement: I reviewed the patient's lab results. 06/15/24 23:36 06/15/24 23:36 Labs: Lab Results 06/15/24 06/16/24 06/16/24 Range/Units 23:36 00:38 00:46 WBC 13.7 H (4.8-10.8) X10*3/uL RBC 4.50 L (4.60-5.80) X10*6/uL Hgb 13.8 L (14.0-18.0) g/dl Hct 42.0 (42.0-52.0) % MCV 93.3 (80.0-98.0) fL MCH 30.7 (27.0-33.0) pg MCHC 32.9 (31.0-36.0) g/dl RDW 14.6 (11.0-16.0) % Plt Count 272 (160-400) X10*3/uL MPV 8.0 L (9.4-12.4) fL Immature Gran % (Auto) 1.3 H (0.0-0.4) % Neut % (Auto) 83.9 H (45-73) % Lymph % (Auto) 6.4 L (20-40) % [place] % (Auto) 7.2 (2-11) % Eos % (Auto) 1.0 (0-4) % Baso % (Auto) 0.2 (0-2) % Lymph # (Auto) 0.9 L (1.2-4.9) X10*3/uL [place] # (Auto) 1.0 (0.1-1.2) X10*3/uL Eos # (Auto) 0.1 (0.0-0.4) X10*3/uL Baso # (Auto) 0.0 (0.0-0.2) X10*3/uL Abs Immat Gran (auto) 0.18 H (0.00-0.03) X10*3/uL Absolute Neuts (auto) 11.5 H (2.0-8.3) x10*3/uL Absolute Nucleated RBC 0.000 (0.0-0.012) X10*3/uL Nucleated RBC % (auto) 0.0 (0.0-0.2) /100WBC VBG pH 7.41 (7.32-7.43) VBG pCO2 45 mmHg VBG pO2 69 mmHg VBG HCO3 29 H (22-26) mmol/L VBG O2 Saturation 95.0 % VBG Base Excess 4.4 mmol/L Sodium 138 (135-145) mmol/L Potassium 4.3 (3.3-5.1) mmol/L Chloride 102 (96-108) mmol/L Carbon Dioxide 29 (22-29) mmol/L Anion Gap 11 L (12-20) BUN 10 (9-16) mg/dL Creatinine 0.68 (0.5-1.4) mg/dL Estim Creat Clear Calc 117.3 Estimated GFR > 60 Random Glucose 104 (60-115) mg/dL Lactic Acid 2.0 (0.5-2.0) mmol/L Calcium 8.9 D (8.4-10.2) mg/dL Magnesium 1.9 (1.6-2.6) mg/dL Total Bilirubin 0.3 (0.0-1.0) mg/dL AST 18 (5-37) U/L ALT 19 (0-40) U/L Alkaline Phosphatase 58 (39-117) U/L Troponin I High Sens 7.2 D (<3.5-35.0) ng/L B-Natriuretic Peptide 38 (<100) pg/mL Total Protein 6.7 (6.5-8.0) g/dL Albumin 4.0 (3.5-5.0) g/dL Lipase 23 (8-78) U/L Influenza Type A (PCR) POSITIVE A (Negative) Influenza Type B (PCR) NEGATIVE (Negative) RSV RNA Qual (PCR) NEGATIVE (Negative) SARS-CoV-2 RNA (RT-PCR) NEGATIVE (Negative) Independent Interpretation I performed an independent interpretation of an: EKG Interpretation: My independent interpretation of the patient's 12 EKG done on 06/15/2024 at 23:25 hours is as follows: Sinus tachycardia with a rate of 114, normal VT interval, QRS duration QTC interval, given his tremulous in his he has artifact in his baseline but there is no obvious ST segment elevation or depression, no significant T-wave abnormalities, no PACs or PVCs My independent interpretation the patient's increased interstitial markings in the left lower lobe compared to a chest x-ray dated 02/29/2024 Radiology Impression Discussion of test interpretation with radiology: I have reviewed the radiologist's reading. Radiologist Impression: view chest x-ray Comparison: CR/SR - XR CHEST 2V - 12/13/24 14:27 EST Findings: Mild left lower lobe atelectasis. No significant pleural effusion or pneumothorax. Possible mediastinal calcified granulomas, similar to prior. Similar prominent/enlarged cardiac silhouette. No acute fracture. 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 IMPRESSION: Mild left lower lobe atelectasis. This document has been electronically signed by: Owen De Souza MD on 06/16/2024 00:13:46 Chronic Conditions Patient?s care impacted by: Other (Asthma/COPD) Critical Care Time Critical Care Time Critical Care Time: Yes Total Critical Care Time: 35 Attestation: Critical Care: The patient was critically ill with a high probability of imminent or life threatening deterioration. I spent greater than 30 minutes of discontinuous time evaluating the patient,delivering critical care at the bedside, discussing and evaluating pertinent data with consultants. Critical care time does not include time spent performing separately billable procedures or teaching. Total time spent performing critical care was 35 minutes. Discharge Plan Discharge Clinical Impression: Influenza A Pneumonia Qualifiers: Pneumonia type: due to unspecified organism Laterality: left Lung location: l ower lobe of lung Qualified Code(s): J18.9 - Pneumonia, unspecified organism Patient Disposition: Admitted As Inpatient
[2024-06-16] MEDS: SODIUM CHLORIDE 2175 ML IV (00:38)
[2024-06-16 00:39] LABS: Influenza A PCR POSITIVE (Negative); Influenza B PCR NEGATIVE (Negative); Resp Syncy Virus RNA Qual PCR NEGATIVE (Negative); SARS COV2 PCR INHOUSE NEGATIVE (Negative)
[2024-06-16 00:49] LABS: B Type Natriuretic Peptide 38 pg/mL (<100)
[2024-06-16 00:50] LABS: Venous Blood Gas Refer to POC result
[2024-06-16] MEDS: cefTRIAXone sodium 1 GM VIAL IVPUSH ×2 (00:55→20:37)
[2024-06-16] MEDS: Morphine Sulfate 4 MG/ML CARTRIDGE IVPUSH (00:56)
[2024-06-16] MEDS: methylPREDNISolone Sod Succ 125 MG/2 ML VIAL IVPUSH (00:57)
[2024-06-16] MEDS: Oseltamivir Phosphate 75 MG CAPSULE PO ×3 (00:57→22:20)
--- NOTE | 2024-06-16 00:59 | PM.IMHP ---
History of Present Illness Date of Service: 06/16/24 Chief Complaint: Shortness of breath 54-year-old male with a past medical history of HTN, HLD, DM, asthma/COPD, tobacco dependence, osteoporosis, anxiety, depression, chronic abdominal pain, irritable bowel syndrome, history of kidney stones presented to the hospital today with a chief complaint of cough and shortness of breath. Patient reported that over the past 2 days he has been having cough and shortness of breath. Also having generalized body aches. Reports having diarrhea and abdominal discomfort. Mentions he has chronic abdominal discomfort unchanged. Denies any chest pain or palpitations. Denies any nausea or vomiting. Denies any urinary symptoms. Review of all other systems is negative except mentioned above ER course: Per ER team, patient on presentation noted to be short of breath, has bilateral wheezing concerning for asthma/COPD exacerbation-given nebulizations and steroids. Patient also reported precordial chest discomfort which currently resolved. EKG nonischemic. Troponin negative. Patient chest x-ray showed findings concerning for left-sided pneumonia. Given antibiotics. Patient also tested positive for influenza. Received Tamiflu. [facility] Medical History (Updated 06/16/24 @ 00:51 by Jesus Falcon MD) Pneumonia Atelectasis Viral syndrome History of COVID-19 Leukocytosis Hyperlipidemia Personal history of nicotine dependence Back pain Arthritis Anxiety and depression Asthma History of kidney stones Chronic abdominal pain Tubular adenoma of colon (~2019) Asthma-COPD overlap syndrome Osteoporosis (~2001) Irritable bowel syndrome GERD (gastroesophageal reflux disease) COPD (chronic obstructive pulmonary disease) HTN (hypertension) Family History Father No problems noted. Mother No problems noted. Son No problems noted. Daughter No problems noted. Surgical History History of bilateral hip replacements History of colonoscopy with polypectomy (~2020) History of colonoscopy (~2005) History of surgery on right wrist (~2014) History of hip surgery (~2001) S/P extracorporeal shock wave therapy (~2013) History of hydrocelectomy Shoulder symptoms with history of shoulder arthroplasty Social History Unable to assess alcohol history related to: Unknown Alcohol intake: unknown Patient Tobacco Use Status: Current everyday Tobacco user Tobacco use type: Cigarette Cigarette Packs Per Day: 0.5 Cigarettes Per Day: 7 Years Smoked: (onset 14yo, 1/2-3/4ppd x 37yrs, 23pyh) Smoked in Last 30 Days: Yes Second Hand Smoke Exposure: No Use of substances other than those prescribed or required for medical reasons: No Advance Directives: Yes Advance Directives on File: Yes Advance Directives Date on File: 05/30/21 Do you have a plan to hurt others: No Plan service: No Current occupational status: disabled Current occupation: rt handed Meds Allergies Allergy/AdvReac Type Severity Reaction Status Date / Time ibuprofen [From Motrin] Allergy Intermediate Rash Verified 06/15/24 23:37 Active Medications: Current Medications Acetaminophen (Acetaminophen 325 Mg Tablet) 650 mg PO Q6H PRN PRN Reason: Pain, Mild 1-3,fever,headache Albuterol/Ipratropium (Albuterol/Iprat 2.5/0.5mg 3 Ml Ampul.Neb) 3 ml INHALE Q4H PRN PRN Reason: Shortness of Breath/Wheezing Albuterol/Ipratropium (Albuterol/Iprat 2.5/0.5mg 3 Ml Ampul.Neb) 3 ml INHALE RQ6H WHILE AWAKE RAHEL Apixaban (Apixaban 5 Mg Tablet) 5 mg PO BID RAHEL Calcium Carbonate (Calcium Carbonate 750 Mg Tab.Chew) 750 mg PO Q4H PRN PRN Reason: Heartburn Ceftriaxone Sodium (Ceftriaxone Sodium 1 Gm Vial) 1 gm IVPUSH Q24H [facility] Doxycycline Monohydrate (Doxycycline Monohydrate 100 Mg Capsule) 100 mg PO Q12H RAHEL Famotidine (Famotidine 20 Mg Tablet) 20 mg PO DAILY [facility] Sodium Chloride (Ns) 2,175 mls @ 2,175 mls/hr 30 ml/kg infuse over 1 hr (2175 ml) IV .Q1H STA Stop: 06/16/24 01:35 Last Admin: 06/16/24 00:38 Dose: 2,175 mls/hr Lactated Ringer's (Lr) 1,000 mls @ 100 mls/hr IVCONT .Q10H [facility] Doxycycline Hyclate 100 mg/ (Sodium Chloride) 250 mls @ 166.67 mls/hr IV ONCE ONE Stop: 06/16/24 02:24 Magnesium Hydroxide (Milk Of Magnesia 30 Ml Oral.Susp) 30 ml PO DAILY PRN PRN Reason: Constipation Melatonin (Melatonin 3 Mg Tablet) 6 mg PO BEDTIME PRN PRN Reason: Insomnia Nicotine (Nicotine 14 Mg Patch.Td24) 14 mg TRANSDERMA DAILY [facility] Nicotine Polacrilex (Nicotine Polacrilex 2 Mg Gum) 2 mg BUCCAL Q2H PRN PRN Reason: Nicotine Cravings Oseltamivir Phosphate (Oseltamivir Phosphate 75 Mg Capsule) 75 mg PO Q12H RAHEL Stop: 06/20/24 22:01 Sodium Chloride (0.9 % Sodium Chloride Flush 3 Ml Syringe) 3 [facility] Medications ?Medication ?Instructions ?Recorded ?Confirmed ?Last Taken ?Type amlodipine 5 mg tablet 5 mg PO DAILY 05/28/21 03/25/24 Unknown History atorvastatin 10 mg tablet 10 mg PO BEDTIME 05/28/21 03/25/24 Unknown History metoprolol succinate 25 mg 25 mg PO DAILY 05/28/21 03/25/24 09/06/22 07:00 History tablet,extended release 24 hr clotrimazole 1 % topical cream appl topical 07/26/21 03/25/24 Unknown History nebulizers 06/14/22 03/25/24 Unknown History codeine 10 mg-guaifenesin 100 mg/5 10 ml PO Q6H PRN cough 01/11/23 03/25/24 Unknown History mL oral liquid ergocalciferol (vitamin D2) 1,250 1,250 mcg PO QWEEK 01/11/23 03/25/24 Unknown History mcg (50,000 unit) capsule insulin glargine 100 unit/mL (3 7 unit subcut BEDTIME 01/11/23 03/25/24 Unknown History mL) subcutaneous pen (Lantus Solostar U-100 Insulin) losartan 25 mg tablet 25 mg PO QAM 01/11/23 03/25/24 Unknown History metformin 1,000 mg tablet 1,000 mg PO 01/11/23 03/25/24 Unknown History montelukast 10 mg tablet 10 mg PO BEDTIME 01/11/23 03/25/24 Unknown History sitagliptin phosphate 25 mg tablet 25 mg PO QAM 01/11/23 03/25/24 Unknown History (Rupal) zafirlukast 20 mg tablet 20 mg PO BID 01/11/23 03/25/24 Unknown History alendronate 70 mg tablet 70 mg PO QWEEK 02/07/23 03/25/24 Unknown History Physical Exam Vital Signs and Narrative: Vital Signs: Last Vital Signs Temp 100.1 F 06/15/24 23:36 Pulse 104 H 06/16/24 00:11 Resp 22 H 06/16/24 00:11 BP 129/77 06/15/24 23:36 Pulse Ox 93 06/15/24 23:36 O2 Del Method Room Air 06/15/24 23:36 BMI result Body Mass Index 24.3 Gen: Appears be in no acute distress HEENT: NCAT, Moist mucosa. Pulmonary: Coarse breath sounds CVS: Normal S1-S2 Abdomen: BS+, Soft, Nontender Extremities: Warm well perfused Neuro: Alert and awake. Results Labs 06/15/24 23:36 06/15/24 23:36 Labs: Laboratory Results - last 24 hr 06/15/24 23:36 MCV 93.3 MCH 30.7 MCHC 32.9 RDW 14.6 Plt Count 272 MPV 8.0 L Immature Gran % (Auto) 1.3 H Neut % (Auto) 83.9 H Lymph % (Auto) 6.4 L [place] % (Auto) 7.2 Eos % (Auto) 1.0 Baso % (Auto) 0.2 Lymph # (Auto) 0.9 L [place] # (Auto) 1.0 Eos # (Auto) 0.1 Baso # (Auto) 0.0 Abs Immat Gran (auto) 0.18 H Absolute Neuts (auto) 11.5 H Absolute Nucleated RBC 0.000 Nucleated RBC % (auto) 0.0 Anion Gap 11 L Estim Creat Clear Calc 117.3 Estimated GFR > 60 Random Glucose 104 Calcium 8.9 D Magnesium 1.9 Total Bilirubin 0.3 AST 18 ALT 19 Alkaline Phosphatase 58 B-Natriuretic Peptide 38 Total Protein 6.7 Albumin 4.0 Lipase 23 Influenza Type A (PCR) POSITIVE A Influenza Type B (PCR) NEGATIVE RSV RNA Qual (PCR) NEGATIVE SARS-CoV-2 RNA (RT-PCR) NEGATIVE Assessment and Plan (1) Asthma-COPD overlap syndrome: Status: Acute Plan 54-year-old male with a past medical history of HTN, HLD, DM, asthma/COPD, tobacco dependence, osteoporosis, anxiety, depression, chronic abdominal pain, irritable bowel syndrome, history of kidney stones presented to the hospital today with a chief complaint of cough and shortness of breath. Admitted for following Acute asthma/COPD exacerbation: Influenza: Left-sided pneumonia: Precordial chest pain: Atypical Patient on presentation noted to be short of breat, wheezing bilaterally concerning for asthma exacerbation. Not in respiratory distress. EKG nonischemic. Troponin negative Empirically covered with ceftriaxone, doxycycline, Tamiflu. Continue nebulizations standing and p.r.n. Continue Solu-Medrol Supplemental oxygen. Trending pulse ox mentioned and ready for discharge Patient reports recent admission to [facility]-requested for records. Tobacco dependence: Counseled on smoking cessation. Offered nicotine supplements. Diabetes: Insulin sliding scale Hypertension: Continue home metoprolol. If blood pressure remains stable resume other antihypertensives. ? HX DVT/PE: Patient on Eliquis-will continue ; requested records from [facility] to confirm. DVT prophylaxis: Patient on Eliquis Code status: Full code Quality Stroke Does the patient have a stroke diagnosis?: No VTE Prior VTE?: No VTE Risk Level:: Medical - moderate - high VTE Device Contraindication: Treatment Not Indicated VTE Drug Contraindication: N/A - Med Ordered
[2024-06-16] MEDS: Doxycycline Hyclate 100 MG in 0.9 % Sodium Chloride 250 ML 166.67 MG IV (01:00)
[2024-06-16] MEDS: Lactated Ringers 1,000 ML 100 ML IVCONT (01:00)
[2024-06-16 01:01] LABS: VBG Base Excess 4.4 mmol/L; VBG HCO3 29 mmol/L (22-26); VBG pCO2 45 mmHg; VBG pH 7.41 (7.32-7.43); VBG pO2 69 mmHg
[2024-06-16 02:00] LABS: D Dimer High Sensitivity < 150 NG/ML
[2024-06-16] MEDS: Albuterol/Iprat 2.5/0.5MG 3 ML AMPUL.NEB INHALE ×4 (02:42→19:23)
[2024-06-16] MEDS: HYDROmorphone HCl 0.5 MG/0.5 ML SYRINGE IVPUSH ×4 (02:42→19:53)
[2024-06-16 05:29] LABS: Basophils Percent Auto 0.1 % (0-2); Eosinophils Percent Auto 0.1 % (0-4); Hematocrit 39.5 % (42.0-52.0); Hemoglobin 13.2 g/dl (14.0-18.0); Imm Gran Abs Auto 0.21 X10*3/uL (0.00-0.03); Imm Gran Pct Auto 1.5 % (0.0-0.4); Lymphocytes Absolute Auto 0.2 X10*3/uL (1.2-4.9); Lymphocytes Percent Auto 1.7 % (20-40); MANUAL DIFF FLAG SCAN; Mean Corpuscular HGB Conc 33.4 g/dl (31.0-36.0); Mean Corpuscular Hemoglobin 31.2 pg (27.0-33.0); Mean Corpuscular Volume 93.4 fL (80.0-98.0); Mean Platelet Volume 8.1 fL (9.4-12.4); Monocytes Absolute Auto 0.4 X10*3/uL (0.1-1.2); Neutrophils Percent Auto 93.6 % (45-73); Platelet Count 272 X10*3/uL (160-400); Red Blood Count 4.23 X10*6/uL (4.60-5.80); Red Cell Distribution Width 14.6 % (11.0-16.0); SCAN SMEAR FLAG 1; White Blood Count 13.9 X10*3/uL (4.8-10.8)
[2024-06-16 05:57] LABS: Alanine Aminotransferase 17 U/L (0-40); Albumin Level 3.6 g/dL (3.5-5.0); Alkaline Phosphatase 51 U/L (39-117); Anion Gap 12 (12-20); Aspartate Amino Transferase 17 U/L (5-37); Bilirubin Total 0.1 mg/dL (0.0-1.0); Blood Urea Nitrogen 9 mg/dL (9-16); Carbon Dioxide 23 mmol/L (22-29); Chloride 108 mmol/L (96-108); Creatinine Clr Calc Pharmacy 112.3; Estimated Glomerular Filt Rate > 60; Glucose Random 226 mg/dL (60-115); Potassium 4.3 mmol/L (3.3-5.1); SLIDE REVIEW VERIFIED; Sodium 139 mmol/L (135-145); Total Protein 6.2 g/dL (6.5-8.0)
--- NOTE | 2024-06-16 08:35 | P.PNIM_ITS ---
Subjective Subjective Date of Service: 06/16/24 Interval History: sob, chest pain Physical Exam 2 Vital Signs: Vital Signs: Last Vital Signs Temp 98.7 F 06/16/24 04:00 Pulse 105 H 06/16/24 04:00 Resp 29 H 06/16/24 04:00 BP 130/66 06/16/24 04:00 Pulse Ox 91 L 06/16/24 04:00 O2 Del Method Nasal Cannula 06/16/24 04:00 O2 Flow Rate 3 06/16/24 04:00 BMI result Body Mass Index 24.3 Alert oriented x3, tripoding, in respiratory distress, poor air entry, bilateral wheezes, no edema, heart sounds normal Objective Data Active Medications Acetaminophen (Acetaminophen 325 Mg Tablet) 650 mg PO Q6H PRN PRN Reason: Pain, Mild 1-3,fever,headache Albuterol/Ipratropium (Albuterol/Iprat 2.5/0.5mg 3 Ml Ampul.Neb) 3 ml INHALE Q4H PRN PRN Reason: Shortness of Breath/Wheezing Last Admin: 06/16/24 02:42 Dose: 3 ml Documented By: THERESA Albuterol/Ipratropium (Albuterol/Iprat 2.5/0.5mg 3 Ml Ampul.Neb) 3 ml INHALE RQ6H WHILE AWAKE RAHEL Apixaban (Apixaban 5 Mg Tablet) 5 mg PO BID RAHEL Baclofen (Baclofen 20 Mg Tablet) 20 mg PO TID PRN PRN Reason: spasms Bupropion HCl (Bupropion Hcl Xl 150 Mg Tab.Er.24h) 150 mg PO DAILY RAHEL Calcium Carbonate (Calcium Carbonate 750 Mg Tab.Chew) 750 mg PO Q4H PRN PRN Reason: Heartburn Ceftriaxone Sodium (Ceftriaxone Sodium 1 Gm Vial) 1 gm IVPUSH BEDTIME RAHEL Dextrose (Dextrose 50 % 25 Gm/50 Ml Syringe) 25 gm IVPUSH Q15M PRN; Protocol PRN Reason: per Hypoglycemia Standing Ord. Doxycycline Monohydrate (Doxycycline Monohydrate 100 Mg Capsule) 100 mg PO Q12H RAHEL Famotidine (Famotidine 20 Mg Tablet) 20 mg PO DAILY RAHEL Glucose (Glucose Gel 15 Gm Gel..Gram.) 15 gm PO Q15M PRN; Protocol PRN Reason: per Hypoglycemia Standing Ord. Hydromorphone HCl (Hydromorphone Hcl 0.5 Mg/0.5 Ml Syringe) 0.5 mg IVPUSH Q4H PRN; Protocol PRN Reason: Breakthrough Pain Last Admin: 06/16/24 06:46 Dose: 0.5 mg Documented By: MANDO Insulin Human Lispro (Insulin Lispro 100 Unit/Ml 3 Ml Vial) 0 unit SUBCUT QIDACHS RAHEL; Protocol Magnesium Hydroxide (Milk Of Magnesia 30 Ml Oral.Susp) 30 ml PO DAILY PRN PRN Reason: Constipation Melatonin (Melatonin 3 Mg Tablet) 6 mg PO BEDTIME PRN PRN Reason: Insomnia Methylprednisolone Sodium Succinate (Methylprednisolone Sod Succ 40 Mg/Ml Vial) 40 mg IVPUSH Q12H RAHEL Metoprolol Succinate (Metoprolol Succinate Er 25 Mg Tab.Er.24h) 25 mg PO DAILY [facility]; Protocol Nicotine (Nicotine 14 Mg Patch.Td24) 14 mg TRANSDERMA DAILY RAHEL Nicotine Polacrilex (Nicotine Polacrilex 2 Mg Gum) 2 mg BUCCAL Q2H PRN PRN Reason: Nicotine Cravings Oseltamivir Phosphate (Oseltamivir Phosphate 75 Mg Capsule) 75 mg PO Q12H [facility] Stop: 06/20/24 22:01 Sodium Chloride (0.9 % Sodium Chloride Flush 3 Ml Syringe) 3 ml IVFLUSH QSHIFT [facility] Last Admin: 06/16/24 08:27 Dose: Not Given Documented By: TAMIKA Non-Admin Reason: IV Running Labs 06/16/24 04:59 06/16/24 04:59 Labs: Laboratory Results - last 24 hr 06/15/24 06/16/24 06/16/24 23:36 00:38 00:46 MCV 93.3 MCH 30.7 MCHC 32.9 RDW 14.6 Plt Count 272 MPV 8.0 L Immature Gran % (Auto) 1.3 H Neut % (Auto) 83.9 H Lymph % (Auto) 6.4 L [place] % (Auto) 7.2 Eos % (Auto) 1.0 Baso % (Auto) 0.2 Lymph # (Auto) 0.9 L [place] # (Auto) 1.0 Eos # (Auto) 0.1 Baso # (Auto) 0.0 Abs Immat Gran (auto) 0.18 H Absolute Neuts (auto) 11.5 H Absolute Nucleated RBC 0.000 Nucleated RBC % (auto) 0.0 Smear Tech's Comments D-Dimer High Sensitivty VBG pH 7.41 VBG pCO2 45 VBG pO2 69 VBG HCO3 29 H VBG O2 Saturation 95.0 VBG Base Excess 4.4 Anion Gap 11 L Estim Creat Clear Calc 117.3 Estimated GFR > 60 Random Glucose 104 Lactic Acid 2.0 Calcium 8.9 D Magnesium 1.9 Total Bilirubin 0.3 AST 18 ALT 19 Alkaline Phosphatase 58 B-Natriuretic Peptide 38 Total Protein 6.7 Albumin 4.0 Lipase 23 Influenza Type A (PCR) POSITIVE A Influenza Type B (PCR) NEGATIVE RSV RNA Qual (PCR) NEGATIVE SARS-CoV-2 RNA (RT-PCR) NEGATIVE 06/16/24 06/16/24 01:43 04:59 MCV 93.4 MCH 31.2 MCHC 33.4 RDW 14.6 Plt Count 272 MPV 8.1 L Immature Gran % (Auto) 1.5 H Neut % (Auto) 93.6 H Lymph % (Auto) 1.7 L [place] % (Auto) 3.0 Eos % (Auto) 0.1 Baso % (Auto) 0.1 Lymph # (Auto) 0.2 L [place] # (Auto) 0.4 Eos # (Auto) 0.0 Baso # (Auto) 0.0 Abs Immat Gran (auto) 0.21 H Absolute Neuts (auto) 13.0 H Absolute Nucleated RBC 0.000 Nucleated RBC % (auto) 0.0 Smear Tech's Comments VERIFIED D-Dimer High Sensitivty < 150 VBG pH VBG pCO2 VBG pO2 VBG HCO3 VBG O2 Saturation VBG Base Excess Anion Gap 12 Estim Creat Clear Calc 112.3 Estimated GFR > 60 Random Glucose 226 H Lactic Acid Calcium 8.0 L D Magnesium Total Bilirubin 0.1 AST 17 ALT 17 Alkaline Phosphatase 51 B-Natriuretic Peptide Total Protein 6.2 L Albumin 3.6 Lipase Influenza Type A (PCR) Influenza Type B (PCR) RSV RNA Qual (PCR) SARS-CoV-2 RNA (RT-PCR) Assessment and Plan (1) Influenza A: Status: Acute Plan 54M PMH moderate persistent asthma/COPD, diabetes, hypertension, hyperlipidemia, history of pulmonary embolism, mood disorder presented with shortness of breath Viral sepsis due to flu a complicated by acute hypoxic respiratory failure and moderate persistent asthma/COPD with acute decompensation Tamiflu, DuoNebs, Solu-Medrol Wean O2 as tolerated Diabetes with hyperglycemia Insulin sliding scale History of pulmonary embolism Continue apixaban Full code reason for continued hospitalization: Hypoxia, respiratory distress Quality Stroke Does the patient have a stroke diagnosis?: No VTE Prior VTE?: No VTE Risk Level:: Medical - moderate - high VTE Device Contraindication: Treatment Not Indicated VTE Drug Contraindication: N/A - Med Ordered
[2024-06-16 08:39] LABS: Glucose, Whole Blood 184 mg/dL (60-115)
[2024-06-16] MEDS: Doxycycline Monohydrate 100 MG CAPSULE PO ×2 (09:14→22:20)
--- NOTE | 2024-06-16 09:14 | PHA.MEDREC ---
Pharmacy Consult ? Medication Reconciliation Pharmacy has completed the medication reconciliation. 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 Utilized pharmacy claims to confirm the ones he was unsure of.
[2024-06-16] MEDS: Nicotine 14 MG PATCH.TD24 TRANSDERMA (09:16)
[2024-06-16] MEDS: buPROPion HCl XL 150 MG TAB.ER.24H PO (09:17)
[2024-06-16] MEDS: Metoprolol Succinate ER 25 MG TAB.ER.24H PO (09:17)
[2024-06-16] MEDS: Apixaban 5 MG TABLET PO ×2 (09:17→20:37)
[2024-06-16] MEDS: Famotidine 20 MG TABLET PO (09:17)
[2024-06-16] MEDS: methylPREDNISolone Sod Succ 40 MG/ML VIAL IVPUSH ×2 (09:19→19:25)
[2024-06-16] MEDS: Acetaminophen 325 MG TABLET 650 MG PO (09:22)
[2024-06-16 13:08] LABS: Glucose, Whole Blood 222 mg/dL (60-115)
[2024-06-16] MEDS: Insulin Lispro 100 UNIT/ML 3 ML VIAL SUBCUT ×2 (13:40→18:12)
[2024-06-16] MEDS: Nicotine Polacrilex 2 MG GUM BUCCAL ×3 (13:41→22:20)
[2024-06-16] MEDS: 0.9 % Sodium Chloride Flush 3 ML SYRINGE IVFLUSH (16:23)
--- NOTE | 2024-06-16 16:34 | PC.NURSE ---
pt continues to require oxygen supplementation. currently on3l. sometimes he is not compliant with wearing oxygen
[2024-06-16 18:16] LABS: Glucose, Whole Blood 155 mg/dL (60-115)
[2024-06-16] MEDS: Montelukast Sodium 10 MG TABLET PO (20:37)
[2024-06-16] MEDS: Atorvastatin Calcium 10 MG TABLET PO (20:37)
[2024-06-16] MEDS: bisacodyL 5 MG TABLET.DR PO (20:37)
[2024-06-16] MEDS: Throat Lozenge, Medicated LOZENGE 1 LOZENGE MUCOUS MEM (20:45)
[2024-06-16 21:22] LABS: Glucose, Whole Blood 131 mg/dL (60-115)
[2024-06-16] MEDS: Amitriptyline HCl 10 MG TABLET PO (22:20)
[2024-06-17] VITALS (12 sets, daily range): BP systolic 106–130; BP diastolic 55–85; PULSE 73–84; RESP 16–20; TEMP 36.3–36.9; O2SAT 90–98
--- NOTE | 2024-06-17 00:59 | HO.SKINPHOTO ---
Location: left buttock
[2024-06-17] MEDS: HYDROmorphone HCl 0.5 MG/0.5 ML SYRINGE IVPUSH ×3 (03:11→20:44)
--- NOTE | 2024-06-17 04:48 | PC.NURSE ---
late entry: On 06/16/2024 pts bp noted to be 118/61 at 0145 and 113/69 at 0200 after IVF.
[2024-06-17 07:57] LABS: Glucose, Whole Blood 123 mg/dL (60-115)
--- NOTE | 2024-06-17 07:59 | PC.RT ---
Pt speaking clear [place], able to understand me. Proceeds to tell me he does not speak [place], I speak to him in Swedish and he gets upset and starts yelling saying that he needs someone to speak Swedish. Pt irate, refused treatment
[2024-06-17 08:24] LABS: Hematocrit 37.6 % (42.0-52.0); Hemoglobin 12.4 g/dl (14.0-18.0); Mean Corpuscular Hemoglobin 30.9 pg (27.0-33.0); Mean Corpuscular Volume 93.8 fL (80.0-98.0); Mean Platelet Volume 8.4 fL (9.4-12.4); Platelet Count 259 X10*3/uL (160-400); Red Blood Count 4.01 X10*6/uL (4.60-5.80); Red Cell Distribution Width 14.4 % (11.0-16.0); White Blood Count 12.3 X10*3/uL (4.8-10.8)
[2024-06-17] MEDS: Oseltamivir Phosphate 75 MG CAPSULE PO ×2 (09:00→20:38)
[2024-06-17] MEDS: Doxycycline Monohydrate 100 MG CAPSULE PO ×2 (09:00→20:38)
[2024-06-17] MEDS: Nicotine Polacrilex 2 MG GUM BUCCAL ×4 (09:00→21:39)
[2024-06-17] MEDS: buPROPion HCl XL 150 MG TAB.ER.24H PO (09:00)
[2024-06-17] MEDS: hydroCHLOROthiazide 12.5 MG TABLET PO (09:00)
[2024-06-17] MEDS: methylPREDNISolone Sod Succ 40 MG/ML VIAL IVPUSH ×2 (09:00→20:39)
[2024-06-17] MEDS: Omeprazole 40 MG CAPSULE.DR PO (09:01)
[2024-06-17] MEDS: Apixaban 5 MG TABLET PO ×2 (09:01→20:38)
[2024-06-17] MEDS: Famotidine 20 MG TABLET PO (09:01)
[2024-06-17] MEDS: Metoprolol Succinate ER 25 MG TAB.ER.24H PO ×2 (09:01→09:02)
[2024-06-17] MEDS: Losartan Potassium 25 MG TABLET PO (09:01)
[2024-06-17 09:05] LABS: Anion Gap 12 (12-20); Blood Urea Nitrogen 17 mg/dL (9-16); Calcium 8.5 mg/dL (8.4-10.2); Carbon Dioxide 29 mmol/L (22-29); Chloride 104 mmol/L (96-108); Creatinine Clr Calc Pharmacy 130.8; Estimated Glomerular Filt Rate > 60; Glucose Random 109 mg/dL (60-115); Potassium 4.2 mmol/L (3.3-5.1); Sodium 141 mmol/L (135-145)
[2024-06-17] MEDS: 0.9 % Sodium Chloride Flush 3 ML SYRINGE IVFLUSH ×3 (09:17→20:47)
[2024-06-17] MEDS: Nicotine 14 MG PATCH.TD24 TRANSDERMA (09:19)
--- NOTE | 2024-06-17 09:25 | MHC.CM.PN ---
CM met with Patient at bedside, with the assist of a [facility]. Patient lives alone in an apartment and uses a cane to assist with mobility. 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 Home/resume said services is the Patient's goal and CM has initiated and will follow for dc planning. PCP is Dr. Amna Richards and Son or Daughter will transport to home at time of dc. Records indicate that Nidhi (Patient's mother) is the HCP.
--- NOTE | 2024-06-17 11:32 | P.PNIM_ITS ---
Subjective Subjective Date of Service: 06/17/24 Interval History: Improving shortness of breath Physical Exam 2 Vital Signs: Vital Signs: Last Vital Signs Temp 97.4 F 06/17/24 07:47 Pulse 79 06/17/24 07:47 Resp 18 06/17/24 07:47 BP 120/73 06/17/24 07:47 Pulse Ox 96 06/17/24 07:47 O2 Del Method Nasal Cannula 06/17/24 07:47 O2 Flow Rate 2 06/17/24 07:47 BMI result Body Mass Index 24.3 Alert orient x3, much less distressed than yesterday still with some accessory muscles and bilateral wheezing Objective Data Active Medications Acetaminophen (Acetaminophen 325 Mg Tablet) 650 mg PO Q6H PRN PRN Reason: Pain, Mild 1-3,fever,headache Last Admin: 06/16/24 09:22 Dose: 650 mg Documented By: TAMIKA Albuterol/Ipratropium (Albuterol/Iprat 2.5/0.5mg 3 Ml Ampul.Neb) 3 ml INHALE Q4H PRN PRN Reason: Shortness of Breath/Wheezing Last Admin: 06/16/24 02:42 Dose: 3 ml Documented By: THERESA Albuterol/Ipratropium (Albuterol/Iprat 2.5/0.5mg 3 Ml Ampul.Neb) 3 ml INHALE RQ6H WHILE AWAKE [facility] Last Admin: 06/17/24 07:58 Dose: Not Given Documented By: LUANN Non-Admin Reason: Patient Refused Amitriptyline HCl (Amitriptyline Hcl 10 Mg Tablet) 10 mg PO BEDTIME [facility] Last Admin: 06/16/24 22:20 Dose: 10 mg Documented By: AZUCENA Apixaban (Apixaban 5 Mg Tablet) 5 mg PO BID [facility] Last Admin: 06/17/24 09:01 Dose: 5 mg Documented By: LILY Atorvastatin Calcium (Atorvastatin Calcium 10 Mg Tablet) 10 mg PO BEDTIME [facility] Last Admin: 06/16/24 20:37 Dose: 10 mg Documented By: MANDO Baclofen (Baclofen 20 Mg Tablet) 20 mg PO TID PRN PRN Reason: spasms Baclofen (Baclofen 20 Mg Tablet) 20 mg PO TID PRN PRN Reason: muscle spasm Benzocaine (Throat Lozenge, Medicated Lozenge) 1 lozenge MUCOUS MEM Q2H PRN PRN Reason: Sore Throat Last Admin: 06/16/24 20:45 Dose: 1 lozenge Documented By: MANDO Bisacodyl (Bisacodyl 5 Mg Tablet.Dr) 5 mg PO BEDTIME [facility] Last Admin: 06/16/24 20:37 Dose: 5 mg Documented By: MANDO Bupropion HCl (Bupropion Hcl Xl 150 Mg Tab.Er.24h) 150 mg PO DAILY [facility] Last Admin: 06/17/24 09:00 Dose: 150 mg Documented By: LILY Calcium Carbonate (Calcium Carbonate 750 Mg Tab.Chew) 750 mg PO Q4H PRN PRN Reason: Heartburn Ceftriaxone Sodium (Ceftriaxone Sodium 1 Gm Vial) 1 gm IVPUSH BEDTIME [facility] Last Admin: 06/16/24 20:37 Dose: 1 gm Documented By: MANDO Dextrose (Dextrose 50 % 25 Gm/50 Ml Syringe) 25 gm IVPUSH Q15M PRN; Protocol PRN Reason: per Hypoglycemia Standing Ord. Doxycycline Monohydrate (Doxycycline Monohydrate 100 Mg Capsule) 100 mg PO Q12H [facility] Last Admin: 06/17/24 09:00 Dose: 100 mg Documented By: LILY Famotidine (Famotidine 20 Mg Tablet) 20 mg PO DAILY [facility] Last Admin: 06/17/24 09:01 Dose: 20 mg Documented By: LILY Fluticasone/Vilanterol (Fluticasone/Vilanterol 200/25 Blst.W.Dev) 1 puff INHALE DAILY [facility] Last Admin: 06/17/24 07:59 Dose: Not Given Documented By: LUANN Non-Admin Reason: Patient Refused Glucose (Glucose Gel 15 Gm Gel..Gram.) 15 gm PO Q15M PRN; Protocol PRN Reason: per Hypoglycemia Standing Ord. Hydrochlorothiazide (Hydrochlorothiazide 12.5 Mg Tablet) 12.5 mg PO DAILY [facility]; Protocol Last Admin: 06/17/24 09:00 Dose: 12.5 mg Documented By: LILY Hydromorphone HCl (Hydromorphone Hcl 0.5 Mg/0.5 Ml Syringe) 0.5 mg IVPUSH Q4H PRN; Protocol PRN Reason: Breakthrough Pain Last Admin: 06/17/24 03:11 Dose: 0.5 mg Documented By: AZUCENA Insulin Human Lispro (Insulin Lispro 100 Unit/Ml 3 Ml Vial) 0 unit SUBCUT QIDACHS [facility]; Protocol Last Admin: 06/17/24 07:36 Dose: Not Given Documented By: LILY Non-Admin Reason: No Insulin Coverage Losartan Potassium (Losartan Potassium 25 Mg Tablet) 25 mg PO DAILY [facility]; Protocol Last Admin: 06/17/24 09:01 Dose: 25 mg Documented By: LILY Magnesium Hydroxide (Milk Of Magnesia 30 Ml Oral.Susp) 30 ml PO DAILY PRN PRN Reason: Constipation Melatonin (Melatonin 3 Mg Tablet) 6 mg PO BEDTIME PRN PRN Reason: Insomnia Methylprednisolone Sodium Succinate (Methylprednisolone Sod Succ 40 Mg/Ml Vial) 40 mg IVPUSH Q12H [facility] Last Admin: 06/17/24 09:00 Dose: 40 mg Documented By: LILY Metoprolol Succinate (Metoprolol Succinate Er 25 Mg Tab.Er.24h) 25 mg PO DAILY [facility]; Protocol Last Admin: 06/17/24 09:01 Dose: 25 mg Documented By: LILY Metoprolol Succinate (Metoprolol Succinate Er 25 Mg Tab.Er.24h) 25 mg PO DAILY [facility]; Protocol Last Admin: 06/17/24 09:02 Dose: 25 mg Documented By: LILY Montelukast Sodium (Montelukast Sodium 10 Mg Tablet) 10 mg PO BEDTIME [facility] Last Admin: 06/16/24 20:37 Dose: 10 mg Documented By: MANDO Nicotine (Nicotine 14 Mg Patch.Td24) 14 mg TRANSDERMA DAILY [facility] Last Admin: 06/17/24 09:19 Dose: 14 mg Documented By: LILY Nicotine (Nicotine 14 Mg Patch.Td24) 14 mg TRANSDERMA DAILY [facility] Last Admin: 06/17/24 09:19 Dose: Not Given Documented By: LILY Non-Admin Reason: double order Nicotine Polacrilex (Nicotine Polacrilex 2 Mg Gum) 2 mg BUCCAL Q2H PRN PRN Reason: Nicotine Cravings Nicotine Polacrilex (Nicotine Polacrilex 2 Mg Gum) 2 mg BUCCAL Q2H [facility] Last Admin: 06/17/24 11:31 Dose: Not Given Documented By: LILY Non-Admin Reason: Patient Refused Non-Formulary Medication (Linaclotide [Linzess]) 290 mcg PO DAILY [facility] Non-Formulary Medication (Roflumilast [Daliresp]) 250 mcg PO DAILY [facility] Omeprazole (Omeprazole 40 Mg Capsule.) 40 mg PO DAILY [facility] Last Admin: 06/17/24 09:01 Dose: 40 mg Documented By: LILY Oseltamivir Phosphate (Oseltamivir Phosphate 75 Mg Capsule) 75 mg PO Q12H [facility] Stop: 06/20/24 22:01 Last Admin: 06/17/24 09:00 Dose: 75 mg Documented By: LILY Sodium Chloride (0.9 % Sodium Chloride Flush 3 Ml Syringe) 3 ml IVFLUSH QSHIFT [facility] Last Admin: 06/17/24 09:17 Dose: 3 ml Documented By: LILY Labs 06/17/24 07:18 06/17/24 07:18 Labs: Laboratory Results - last 24 hr 06/16/24 06/16/24 06/16/24 11:58 18:06 20:36 MCV MCH MCHC RDW Plt Count MPV Absolute Nucleated RBC Nucleated RBC % (auto) Anion Gap Estim Creat Clear Calc Estimated GFR POC Glucose 222 H 155 H 131 H Random Glucose Calcium 06/17/24 06/17/24 07:11 07:18 MCV 93.8 MCH 30.9 MCHC 33.0 RDW 14.4 Plt Count 259 MPV 8.4 L Absolute Nucleated RBC 0.000 Nucleated RBC % (auto) 0.0 Anion Gap 12 Estim Creat Clear Calc 130.8 Estimated GFR > 60 POC Glucose 123 H Random Glucose 109 Calcium 8.5 D Microbiology Microbiology Results: Microbiology 06/16/24 00:38 Blood Culture - Preliminary Blood - Venous No growth after 24 hours. 06/16/24 00:38 Blood Culture - Preliminary Blood - Venous No growth after 24 hours. Assessment and Plan (1) Influenza A: Status: Acute Plan 54M PMH moderate persistent asthma/COPD, diabetes, hypertension, hyperlipidemia, history of pulmonary embolism, mood disorder presented with shortness of breath Viral sepsis due to flu a complicated by acute hypoxic respiratory failure and moderate persistent asthma/COPD with acute decompensation Tamiflu to be completed 06/20/24, Ney, Solu-Medrol Wean O2 as tolerated Diabetes with hyperglycemia Insulin sliding scale History of pulmonary embolism Continue apixaban Full code reason for continued hospitalization: Hypoxia, active wheezing Quality Stroke Does the patient have a stroke diagnosis?: No VTE Prior VTE?: No VTE Risk Level:: Medical - moderate - high VTE Device Contraindication: Treatment Not Indicated VTE Drug Contraindication: N/A - Med Ordered
[2024-06-17 11:50] LABS: Glucose, Whole Blood 163 mg/dL (60-115)
[2024-06-17] MEDS: Insulin Lispro 100 UNIT/ML 3 ML VIAL SUBCUT ×3 (11:53→20:50)
[2024-06-17] MEDS: Albuterol/Iprat 2.5/0.5MG 3 ML AMPUL.NEB INHALE ×2 (14:05→19:00)
[2024-06-17 16:33] LABS: Glucose, Whole Blood 181 mg/dL (60-115)
[2024-06-17] MEDS: Amitriptyline HCl 10 MG TABLET PO (20:38)
[2024-06-17] MEDS: bisacodyL 5 MG TABLET.DR PO (20:38)
[2024-06-17] MEDS: Atorvastatin Calcium 10 MG TABLET PO (20:38)
[2024-06-17] MEDS: Montelukast Sodium 10 MG TABLET PO (20:38)
[2024-06-17] MEDS: cefTRIAXone sodium 1 GM VIAL IVPUSH (20:39)
[2024-06-17 20:52] LABS: Glucose, Whole Blood 210 mg/dL (60-115)
[2024-06-18] VITALS (7 sets, daily range): BP systolic 109–130; BP diastolic 68–86; PULSE 73–82; RESP 16–18; TEMP 36.4–36.7; O2SAT 85–95
[2024-06-18 07:19] LABS: Glucose, Whole Blood 183 mg/dL (60-115)
[2024-06-18] MEDS: hydroCHLOROthiazide 12.5 MG TABLET PO (07:41)
[2024-06-18] MEDS: buPROPion HCl XL 150 MG TAB.ER.24H PO (07:41)
[2024-06-18] MEDS: Metoprolol Succinate ER 25 MG TAB.ER.24H PO (07:42)
[2024-06-18] MEDS: Nicotine Polacrilex 2 MG GUM BUCCAL (07:43)
[2024-06-18] MEDS: Apixaban 5 MG TABLET PO (07:43)
[2024-06-18] MEDS: Famotidine 20 MG TABLET PO (07:43)
[2024-06-18] MEDS: Losartan Potassium 25 MG TABLET PO (07:43)
[2024-06-18] MEDS: Nicotine 14 MG PATCH.TD24 TRANSDERMA (07:44)
[2024-06-18] MEDS: Omeprazole 40 MG CAPSULE.DR PO (07:44)
[2024-06-18] MEDS: Insulin Lispro 100 UNIT/ML 3 ML VIAL SUBCUT ×2 (07:44→11:00)
[2024-06-18] MEDS: methylPREDNISolone Sod Succ 40 MG/ML VIAL IVPUSH (07:46)
[2024-06-18] MEDS: HYDROmorphone HCl 0.5 MG/0.5 ML SYRINGE IVPUSH (07:52)
[2024-06-18] MEDS: Albuterol/Iprat 2.5/0.5MG 3 ML AMPUL.NEB INHALE (07:53)
[2024-06-18] MEDS: Fluticasone/Vilanterol 200/25 BLST.W.DEV 1 PUFF INHALE (07:53)
[2024-06-18] MEDS: 0.9 % Sodium Chloride Flush 3 ML SYRINGE IVFLUSH (08:07)
--- NOTE | 2024-06-18 08:27 | PC.RT ---
Pt SATs 92% on 1L. trialed off O2 however SATs decreased to 86-87%. Pt placed back on 1L. MD at bedside during titration.
--- NOTE | 2024-06-18 10:12 | P.DS_ITS ---
DS: Providers Provider Date of Service: 06/18/24 Date of admission: 06/16/24 00:52 Date of discharge: 06/18/24 Primary care physician: Amna Richards DO Consults: 06/17/24 00:59 Consult to Wound Care Routine Reason for consultation: Recs- wound present on admit, pt had VNA from recent [facility] D/C for wound care DS: Diagnosis Discharge Diagnosis (1) Influenza A: Status: Acute DS: Summary Hospital Course Hospital Course: from initial hpi: 54-year-old male with a past medical history of HTN, HLD, DM, asthma/COPD, tobacco dependence, osteoporosis, anxiety, depression, chronic abdominal pain, irritable bowel syndrome, history of kidney stones presented to the hospital today with a chief complaint of cough and shortness of breath. Patient reported that over the past 2 days he has been having cough and shortness of breath. Also having generalized body aches. Reports having diarrhea and abdominal discomfort. Mentions he has chronic abdominal discomfort unchanged. Denies any chest pain or palpitations. Denies any nausea or vomiting. Denies any urinary symptoms. Review of all other systems is negative except mentioned above ER course: Per ER team, patient on presentation noted to be short of breath, has bilateral wheezing concerning for asthma/COPD exacerbation-given nebulizations and steroids. Patient also reported precordial chest discomfort which currently resolved. EKG nonischemic. Troponin negative. Patient chest x-ray showed findings concerning for left-sided pneumonia. Given antibiotics. Patient also tested positive for influenza. Received Tamiflu. hospital course: Patient was admitted for viral sepsis due to flu a complicated by acute hypoxic respiratory failure and moderate persistent asthma/COPD with acute decompensation. Was treated with Tamiflu, DuoNebs, Solu-Medrol. Wheezing improved respiratory distress resolved patient is feeling close to baseline but is still requiring 1 L at rest and 2 L on exertion likely sign of chronic hypoxic respiratory failure and will be discharged on home O2. We will also be given 5 more days of prednisone 40 mg daily and 5 more doses of Tamiflu as well as doxycycline to cover any superimposed bacterial pneumonia. For diabetes with hyperglycemia was treated with insulin sliding scale. For history of pulmonary embolism was continued on apixaban. Time Attestation Discharge Coordination Time (in mins): 41 Quality: Safe Use of Opioids Does Pt have an Active Cancer Diagnosis on the Problem List?: No Quality: Stroke Does the patient have a stroke diagnosis?: No Physical Exam Vital Signs: Vital Signs: Last Vital Signs Temp 97.6 F 06/18/24 07:45 Pulse 76 06/18/24 07:53 Resp 18 06/18/24 07:53 BP 112/73 06/18/24 07:45 Pulse Ox 92 06/18/24 07:45 O2 Del Method Nasal Cannula 06/18/24 07:45 O2 Flow Rate 1 06/18/24 07:45 BMI result Body Mass Index 24.3 General: AO X 3, no acute distress Resp: CTA bilateral, no accessory muscles used CVS: S1,S2,RRR GI: soft, non tender, non distended Neuro: motor grossly intact, alert Psych: appropriate affect, appropriate insight DS: Data Data Completed and Pending Labs on day of discharge: Laboratory Results - last 24 hr 06/17/24 06/17/24 06/17/24 11:42 16:21 20:48 POC Glucose 163 H 181 H 210 H 06/18/24 07:13 POC Glucose 183 H Preliminary micro results at discharge 06/16/24 00:38 Blood Culture - Preliminary Blood - Venous No growth after 48 hours. 06/16/24 00:38 Blood Culture - Preliminary Blood - Venous No growth after 48 hours. Discharge Plan Discharge Anticipated Discharge Date/Time: 06/18/24 10:08 Patient Disposition: Home Health Service Discharge Diagnosis: flu, copd Referrals: [facility] [Outside] - 1 Week Amna Richards DO [Primary Care Provider] - 1 Week Discharge Medications: New doxycycline monohydrate 100 mg Capsule 100 mg PO Q12H Qty: 10 0RF oseltamivir [Tamiflu] 75 mg Capsule 75 mg PO Q12H Qty: 5 0RF prednisone 20 mg tablet 40 mg PO DAILY Qty: 10 0RF Continued Atrovent HFA 17 mcg/actuation HFA aerosol inhaler 2 puff inhalation QID 30 Days Qty: 12.9 11RF roflumilast [Daliresp] 250 mcg tablet 250 mcg PO DAILY 30 Days Qty: 30 1RF baclofen 20 mg tablet 20 mg PO TID PRN (Reason: muscle spasm) 30 Days Qty: 90 2RF cholecalciferol (vitamin D3) [Vitamin D3] 50 mcg (2,000 unit) tablet 50 mcg PO DAILY Qty: 90 1RF famotidine 40 mg tablet 40 mg PO BEDTIME Qty: 90 1RF omeprazole 40 mg capsule,delayed release(DR/EC) 40 mg PO DAILY Qty: 90 1RF atorvastatin 10 mg tablet 10 mg PO BEDTIME metoprolol succinate 25 mg tablet extended release 24 hr 25 mg PO DAILY Eliquis 5 mg tablet 5 mg PO BID Qty: 120 0RF Rx Instructions: Start after finishing starter package amitriptyline 10 mg tablet 10 mg PO BEDTIME diclofenac sodium 1 % gel 2 g topical DAILY PRN (Reason: pain) bisacodyl [Dulcolax (bisacodyl)] 5 mg tablet,delayed release (DR/EC) 5 mg PO BEDTIME docusate sodium [Colace] 100 mg capsule 100 mg PO BIDAC Linzess 290 mcg capsule 290 mcg PO DAILY albuterol sulfate 2.5 mg /3 mL (0.083 %) Solution For Nebulization 2.5 mg INHALATION Q4H PRN (Reason: Shortness Of Breath Or Wheezing) bupropion HCl 75 mg tablet 150 mg PO BID PRN (Reason: Mood) (DME) nebulizers [facility] See Rx Instructions .Route Rx Instructions: As directed ergocalciferol (vitamin D2) 1,250 mcg (50,000 unit) capsule 1,250 mcg PO FR losartan 25 mg tablet 25 mg PO DAILY metformin 1,000 mg tablet 1,000 mg PO BID zafirlukast 20 mg tablet 20 mg PO BID Rx Instructions: must be taken on empty stomach, at least 1 hr before or 2 hrs after a meal/food montelukast 10 mg tablet 10 mg PO BEDTIME nicotine 14 mg/24 hr patch 24 hour 1 patch transdermal DAILY 28 Days Qty: 28 3RF nicotine (polacrilex) [Nicorette] 2 mg gum 2 mg buccal Q2H 30 Days Qty: 120 5RF varenicline tartrate [Chantix Starting Month Box] 0.5 mg (11)- 1 mg (42) tablets,dose pack See Rx Instructions PO PER PKG DIR Qty: 42 0RF Rx Instructions: PO PER PKG DIR Incruse Ellipta 62.5 mcg/actuation blister with device 1 inh inhalation DAILY 30 Days Qty: 30 11RF Combivent Respimat 20-100 mcg/actuation mist 1 puff inhalation Q6H Qty: 4 11RF fluticasone furoate-vilanterol [Breo Ellipta] 200-25 mcg/dose blister with device 1 inh inhalation DAILY 30 Days Qty: 60 11RF simethicone 180 mg capsule 180 mg PO QID 30 Days Qty: 120 3RF Rx Instructions: after meals tiotropium bromide [Spiriva with HandiHaler] 18 mcg capsule, w/inhalation device 1 cap inhalation DAILY 30 Days Qty: 30 11RF Rx Instructions: puncture 1 cap using device; one dose = 2 inhalations hydrochlorothiazide 12.5 mg tablet 12.5 mg PO DAILY Qty: 90 1RF Held prednisone 10 mg tablet 20 mg PO DAILY Qty: 60 2RF Hold Instructions: Resume on 06/24/24. Discharge Orders: Discharge Order (Routine); Ordered 06/18/24 Ordered By: Ivan Wiggins Diet: Advance to usual diet Activity on Discharge: As tolerated Stand Alone Forms: Patient Portal Discharge page Print Language: Frisian Care Plan Goals: Recovery Health Concerns: COPD, flu, hypoxia Plan of Treatment: Five more days of doxycycline, 5 more doses of Tamiflu, 5 more days of prednisone 40 mg daily and then resume maintenance dose 1 L O2 at rest, 2 L on exertion Assessment: See above
--- NOTE | 2024-06-18 10:17 | MHC.CM.PN ---
Patient has been medically cleared for dc to home today, self care.
--- NOTE | 2024-06-18 10:44 | MHC.CM.PN ---
Patient has been medically cleared for dc to home today. Patient is active with [facility], who has been made aware of today's dc.
[2024-06-18] MEDS: Oseltamivir Phosphate 75 MG CAPSULE PO (10:48)
[2024-06-18] MEDS: Doxycycline Monohydrate 100 MG CAPSULE PO (10:48)
[2024-06-18 11:02] LABS: Glucose, Whole Blood 195 mg/dL (60-115)
== END 2024-06-18 13:58 | disposition home health service (06) | DRG 720 ==
LOC: HO.ED 06-16 00:54 → HO.EDOVER 06-16 01:01 → HO.IMC 06-16 19:06
PROVIDERS: Admitting Provider Hospitalist; Emergency Provider Emergency Medicine Emergency Medical Services; PCP Family Medicine; Visit Provider Internal Medicine
DX: A41.89 Other specified sepsis (principal); J96.01 Acute respiratory failure with hypoxia; J10.00 Influenza due to other identified influenza virus with unspecified type of pneumonia; J44.0 Chronic obstructive pulmonary disease with (acute) lower respiratory infection; J44.1 Chronic obstructive pulmonary disease with (acute) exacerbation; J45.41 Moderate persistent asthma with (acute) exacerbation; E11.65 Type 2 diabetes mellitus with hyperglycemia; Z20.822 Contact with and (suspected) exposure to COVID-19; Z86.718 Personal history of other venous thrombosis and embolism; Z87.891 Personal history of nicotine dependence; Z79.01 Long term (current) use of anticoagulants; Z79.51 Long term (current) use of inhaled steroids; Z79.84 Long term (current) use of oral hypoglycemic drugs; Z79.899 Other long term (current) drug therapy
CPT/HCPCS: 0241U; 36415; 71045; 80048; 80053; 82803; 82947; 83605; 83690; 83735; 83880; 84484; 85025; 85027; 85379; 87040; 93005; 99285; J0696; J1171; J2270; J2919; J7120

== ENCOUNTER → 2024-06-15 23:25 | Outpatient (BNV) | payer MEDICAID, SELFPAY | PROVIDERS: Admitting Provider Hospitalist; Emergency Provider Emergency Medicine Emergency Medical Services; PCP Family Medicine; Visit Provider Internal Medicine | DX: R07.9 Chest pain, unspecified (principal); R06.02 Shortness of breath | CPT/HCPCS: 93010 ==

== ENCOUNTER → 2024-06-15 23:44 | Outpatient (BNV) | payer MEDICAID, SELFPAY | PROVIDERS: Emergency Provider Emergency Medicine Emergency Medical Services; PCP Family Medicine; Visit Provider Radiology Diagnostic Radiology | DX: R05.9 Cough, unspecified (principal) | CPT/HCPCS: 71045 ==

== ENCOUNTER → 2024-06-16 00:52 | Outpatient (BNV) | payer MEDICAID, SELFPAY | PROVIDERS: Admitting Provider Hospitalist; Emergency Provider Emergency Medicine Emergency Medical Services; PCP Family Medicine; Visit Provider Hospitalist | DX: J10.1 Influenza due to other identified influenza virus with other respiratory manifestations (principal) | CPT/HCPCS: 99223; 99232; 99239; 99499 ==

== ENCOUNTER 2024-07-15 14:02 | Outpatient (AMB) | payer MEDICAID, SELFPAY ==
[2024-07-15 14:06] VITALS: BP 110/70; PULSE 100; BMI 23.9
--- NOTE | 2024-07-15 14:06 | A.OFFVIS_ITS ---
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 Professor Language: Coal Loader Name: [id number] Accompanied by: Self / Same As Patient Allergies ibuprofen [From Motrin] Allergy (Intermediate, Verified 06/15/24 23:37) Rash Medication List - Last Reconciled 07/15/24 by Matthew Luque MD albuterol sulfate 2.5 mg inhalation Q4H PRN amitriptyline 10 mg PO BEDTIME apixaban (Eliquis) 5 mg PO BID atorvastatin 10 mg PO BEDTIME baclofen 20 mg PO TID PRN 30 days bisacodyl (Dulcolax (bisacodyl)) 5 mg PO BEDTIME bupropion HCl 150 mg PO BID PRN cholecalciferol (vitamin D3) (Vitamin D3) 50 mcg PO DAILY diclofenac sodium 1% 2 grams topical DAILY PRN docusate sodium (Colace) 100 mg PO BIDAC doxycycline monohydrate 100 mg PO Q12H ergocalciferol (vitamin D2) 1,250 mcg PO FR famotidine 40 mg PO BEDTIME fluticasone furoate-vilanterol 200-25 mcg/dose (Breo Ellipta) 1 inh inhalation DAILY 30 days hydrochlorothiazide 12.5 mg PO DAILY ipratropium bromide 17 mcg/actuation (Atrovent HFA) 2 puffs inhalation QID 30 days ipratropium-albuterol 20-100 mcg/actuation (Combivent Respimat) 1 puff inhalation Q6H linaclotide (Linzess) 290 mcg PO DAILY losartan 25 mg PO DAILY metformin 1,000 mg PO BID metoprolol succinate ER 25 mg PO DAILY montelukast 10 mg PO BEDTIME nebulizers As directed nicotine 1 patch transdermal DAILY 28 days nicotine (polacrilex) (Nicorette) 2 mg buccal Q2H 30 days omeprazole 40 mg PO DAILY oseltamivir (Tamiflu) 75 mg PO Q12H prednisone 40 mg (2 x 20 mg) PO DAILY prednisone 20 mg (2 x 10 mg) PO DAILY roflumilast (Daliresp) 250 mcg PO DAILY 30 days simethicone 180 mg PO QID 30 days tiotropium bromide (Spiriva with HandiHaler) 1 cap inhalation DAILY 30 days umeclidinium 62.5 mcg/actuation (Incruse Ellipta) 1 inh inhalation DAILY 30 days varenicline tartrate (Chantix) 1 mg PO BID 28 days varenicline tartrate (Chantix Starting Month Box) PO PER PKG DIR zafirlukast 20 mg PO BID HPI Comments Details: Aldo returns for follow-up. In the past, he was seen regarding atypical chest pain. Initially, seen around 2019 when he was having chest pains and thought to be noncardiac in nature. Otherwise, patient has a history of asthma/COPD at baseline. Continues to smoke. His chest pains are very random and can happen any time. No exertional characteristics. He has got shortness of breath related to pulmonary issues. Previous CT scan chest has shown coronary artery calcification but otherwise no documented clinical cardiovascular events. [facility] Medical History (Updated 06/26/24 @ 00:01 by Rebeca Ferreira) Pneumonia Atelectasis Viral syndrome History of COVID-19 Leukocytosis Hyperlipidemia Personal history of nicotine dependence Back pain Arthritis Anxiety and depression Asthma History of kidney stones Chronic abdominal pain Tubular adenoma of colon (~2019) Asthma-COPD overlap syndrome Osteoporosis (~2001) Irritable bowel syndrome GERD (gastroesophageal reflux disease) COPD (chronic obstructive pulmonary disease) HTN (hypertension) Surgical History History of bilateral hip replacements History of colonoscopy with polypectomy (~2020) History of colonoscopy (~2005) History of surgery on right wrist (~2014) History of hip surgery (~2001) S/P extracorporeal shock wave therapy (~2013) History of hydrocelectomy Shoulder symptoms with history of shoulder arthroplasty Family History Father No problems noted. Mother No problems noted. Son No problems noted. Daughter No problems noted. Social History Household Members: None Household Members Other:: lives alone Housing: Apartment Do you presently have visiting nurse or other home services: Yes ([facility] for wound care since [facility] d/c 2 wks ago) Unable to assess alcohol history related to: Unknown Alcohol intake: unknown Comment: patient refusing bed alarm and non skid socks Patient Tobacco Use Status: Former Tobacco user Tobacco use type: Cigarette Cigarette Packs Per Day: 0.5 Cigarettes Per Day: 7 Years Smoked: (onset 14yo, 1/2-3/4ppd x 37yrs, 23pyh) Second Hand Smoke Exposure: No Advance Directives Date on File: 05/30/21 service: No Current occupational status: disabled Current occupation: rt handed Review of Systems Const Denies chills, Denies fatigue, Denies fever(s), Denies frequent falls, Denies weakness, Denies weight gain and Denies weight loss ENT Denies dizziness Card Denies chest pain, Denies leg edema, Denies lightheadedness, Denies palpitations, Denies dyspnea, Denies dyspnea on exertion and Denies orthopnea Resp Denies cough, Denies dyspnea and Denies dyspnea on exertion GI Denies bloating and Denies change in bowel habits Musc Denies muscle weakness, Denies numbness and Denies tingling Neuro Denies dizziness, Denies frequent falls, Denies numbness, Denies tingling and Denies weakness Endo Denies fatigue and Denies palpitations Physical Exam Vital Signs: Last Vital Signs Pulse 100 07/15/24 14:06 BP 110/70 07/15/24 14:06 BMI result Body Mass Index 23.9 Const General: comfortable and no acute distress Orientation/consciousness: patient oriented x3 HEENT Other: Unremarkable Head: Yes normal to inspection Neck Neck: Yes normal visual inspection Chest Chest palpation & inspection: normal inspection of the chest Resp Auscultation: rhonchi and breath sounds absent Cardio Palpation: normal PMI Heart sounds: S1 normal heart sound present, S2 normal heart sound present, no gallops, no murmurs and no rubs GI Palpation (GI): Soft to palpation Back/Spine/Pelvis Other: unremarkable Skin General skin exam: no rashes or lesions noted Neuro General: patient oriented x3 Extrem General: Yes normal to inspection Psych Mental Status: mental status grossly normal Assessment & Plan Assessment & Plan (1) Precordial chest pain: Code(s): R07.2 - Precordial pain Category: Medical (2) Coronary artery calcification seen on CT scan: Code(s): I25.10 - Atherosclerotic heart disease of [place] coronary artery without angina pectoris Category: Medical Plan Recent EKG shows sinus tachycardia at 114/Min; no ischemic changes and otherwise unremarkable. Echocardiogram with LVEF of 60-65%. Mitral annular calcification but no significant valvular dysfunction. Otherwise unremarkable. Myocardial perfusion imaging study from 2022 showed normal perfusion. Exercise stress echocardiogram from 2023 had some technical difficulties but based on the available data no overt exercise-induced wall motion abnormalities. Patient had chest discomfort even at baseline. Chest CT scans show coronary artery calcification. Multiple sets of high sensitivity troponins are within normal range. Overall, atypical sounding chest pain which is most likely noncardiac. With regard to the coronary calcification on CT scan, mainly risk factor modification. Must stop smoking. Optimal management of lipids. Target LDL should be ideal < 60-70 mg/dL. Could be done through his own PCP. Follow-up in one year. In the interim, to call with concerns. Discussion Notes During today's consultation, we discussed the atypical nature of the chest pain, which appears non-cardiac in origin and does not require immediate cardiac intervention. The patient was also briefed about his COPD management, stressing the importance of discontinuing smoking and maintaining oxygen therapy to prev ent exacerbations. We emphasized continued follow-up to monitor symptoms, particularly any worsening of chest pain or respiratory symptoms. Patient was informed and verbally consented to the use of an ambient scribe for clinic note documentation during this visit. Total time spent including review of data, counseling, documentation, coordination of care-32 minutes. Patient Instructions: - Continue oxygen therapy as previously instructed. - Do not smoke; you have successfully stopped for six days, keep it up. - Monitor for any new or worsening symptoms of chest pain or wheezing. - Follow up as scheduled for monitoring your respiratory and cardiovascular symptoms. - Maintain regular physical activity within tolerance but stop if you experience wheezing or chest pain. Coding Level of Care Code Est Pt Level 4 (75082) Diagnoses Precordial chest pain R07.2 Coronary artery calcification seen on CT scan I25.10
--- OUTSIDE RECORDS SUMMARY | 2024-07-15 16:15 | XMS_ITS | Encounter Summary ---
Author Organization [employer] Address [address] [facility] 7t [place] [address] Care Team Providers Care Smocker Name Role Phone Candace Quiñones MD Primary Care Pro vider Amna Richards DO Primary Care Provider + [phone] Reason for Visit * Reason Onset Date Comments Appointment Request 05/09/2023 Encounter Details Date Type Department Care Team ([facility] st Contact Info) Description 05/09/2023 Telephone [facility] [address] [place] [address] Candace Quiñones MD [address] [place] [address] Appointment Request Social History Tobacco Use Types [...] Care Team (Late st Contact Info) Description 08/13/2024 10:30 AM EDT Clinical Support [facility] [address] [place] [address] Ester Chatman RN documented as of this encounter Visit Diagnoses Not on filedocumented in this encounter Additional Health Concerns Assessment Noted Time PHQ-9 Depression Total Score: 11 023 3:01 PM EDT documented as of this encounter Care Teams Smocker Relationship Specialty Start Date End Date Candace Quiñones MD [address] [place] [address] PCP - General Internal Medicine 07/24/22 10/11/23 Amna Richards DO [address] [place] [address] [place] [address] PCP - General Family Medicine 10/12/23 [facility] 05/08/24 documented as of this encounter
--- OUTSIDE RECORDS SUMMARY | 2024-07-15 16:15 | XMS_ITS | Encounter Summary ---
Author Organization [employer] Address [address] [facility] 7t [place] [address] Care Team Providers Care Rectangular Tank Cooper Name Role Phone Candace Quiñones MD Primary Care Pro vider Amna Richards DO Primary Care Provider + [phone] Reason for Visit * Reason Onset Date Comments TIE [employer]ER 07/09/2023 Encounter Details Date Type Department Care Team ([facility] st Contact Info) Description 07/09/2023 Telephone [facility] [address] [place] [address] Candace Quiñones MD [address] [place] [address] TIE CARRIER Social History Tobacco Use Types Packs/Day Years [...] Tc from pt calling in regards to TIE CARRIER. Pt stated TIE CARRIER has not been paid for about 4 weeks due to needing approval from pcp. Pt was transferred back from HIM and stated he spoke with [employer] and theyinformed pt pcp would need to contact them regarding TIE CARRIER services and from there get in contact with program to prove pt does require TIE CARRIER services. If any questions please contact pt at [phone]. documented in this encounter Plan of Treatment Upcoming Encounters Date Type Department Care Team (Late st Contact Info) Description 08/13/2024 10:30 AM EDT Clinical Support [facility] [address] [place] [address] Ester Chatman RN documented as of this encounter Visit Diagnoses Not on filedocumented in this encounter Additional Health Concerns Assessment Noted Time PHQ-9 Depression Total Score: 11 023 3:01 PM EDT documented as of this encounter Care Teams Rectangular Tank Cooper Relationship Specialty Start Date End Date Candace Quiñones MD [address] [place] [address] PCP - General Internal Medicine 07/24/22 10/11/23 Amna Richards DO [address] [place] [address] PCP - General Family Medicine 10/12/23 [facility] 05/08/24 documented as of this encounter
--- OUTSIDE RECORDS SUMMARY | 2024-07-15 16:15 | XMS_ITS | Encounter Summary ---
Author Organization [employer] Address [address] [facility] 7t [place] [address] Care Team Providers Care Roving Tester Laboratory Name Role Phone Amna Richards DO Primary Care Provider + [phone] Amna Richards DO Primary Care Provider [phone] Candace Quiñones MD Primary Care Pro vider Amna Richards DO Primary Care Provider [phone] Reason for Visit * Reason Comments Med Refill Encounter Details Date Type Department Care Team (Late st Contact Info) Description 06/26/2022 Refill [facility] MED[facility]INE [address] [place], [place] [phone] Linda Loya MD [address] [place], [place] [phone] Severe persistent asthma with acute exacerbation Social [...] Description 08/13/2024 10:30 AM EDT Clinical Support [facility] [address] [place] [address] Ester Chatman, RN documented as of this encounter Visit Diagnoses Diagnosis Severe persistent asthma with acute exacerbation documented in this encounter Additional Health Concerns Assessment Noted Time PHQ-9 Depression Total Score: 13 023 11:01 AM EDT documented as of this encounter Care Teams Roving Tester Laboratory Relationship Specialty Start Date End Date Amna Richards DO [address] [place] [address] PCP - General Family Medicine 03/19/18 07/20/22 Amna Richards DO [address] [place] [address] PCP - General Family Medicine 07/21/22 07/23/22 Candace Quiñones MD [address] [place] [address] PCP - General Internal Medicine 07/24/22 10/11/23 Amna Richards DO [address] [place] [address] PCP - General Family Medicine 10/12/23 [facility] 05/08/24 documented as of this encounter
--- OUTSIDE RECORDS SUMMARY | 2024-07-15 16:15 | XMS_ITS | Encounter Summary ---
Author Organization [employer] Address [address] [facility] 7t [place] [address] Care Team Providers Care Coverstitch Binder Name Role Phone Candace Quiñones MD Primary Care Pro vider Amna Richards DO Primary Care Provider + [phone] Encounter Details Date Type Department Care Team (Late st Contact Info) Description 02/28/2023 Orders Only [facility] [address] [place], [place] [phone] Brendon Davidson MD [address] [place] [address] Social History Tobacco Use Types Packs/Day Years [...] Description 08/13/2024 10:30 AM EDT Clinical Support [address] [address] Ester Chatman RN documented as of this [...] Testosterone, Total 494 250 - 1100 ng/dL [facility] Comment:For additional infor mation, please refer tohttp://education.[employer]/faq/BfjxbEhyelonexkuaEWRMHEARF960(This link is being provided for informational/educational purposes only.)This test was developed and its analytical performancecharacteristics have been determined by [employer] [place], [place]. It hasnot been cleared or approved by the U.S. Food and DrugAdministration. This assay has been validated pursuantto the CLIA regulations and is used for clinicalpurposes. Testosterone, Free 65.7 35.0 - 155.0 pg/mL [facility] Comment:This test was develo ped and its analytical performancecharacteristics have been determined by [employer] [place], [place]. It hasnot been cleared or approved by the U.S. Food and DrugAdministration. This assay has been validated pursuantto the CLIA regulations and is used for clinicalpurposes.THIS TEST WAS PERFORMED AT:[employer] [id number] [place] [id number] COLÓN MD,PHD 02/28/2023 9:10 AM EST 02/28/2023 9:22 AM EST us Generic External Data Provider LAB BLOOD ORDERAB LES Final Result [facility] [address] [place] [phone] * (ABNORMAL) Protein Electrophoresis and [place] (02/28/2023 9:10 AM EST) [facility] Prot Elec - Total Protein 7.0 6.1 - 8.1 g/dL [facility] Prot Elec - Albumin 4.0 3.8 - 4.8 g/dL [facility] Prot Elec - Alpha1 0.4(A) 0.2 - 0.3 g/dL [facility] Prot Elec - Alpha2 0.9 0.5 - 0.9 g/dL [facility] Prot Elec - Beta 1 0.4 0.4 - 0.6 g/dL [facility] Prot Elec - Beta 2 0.5 0.2 - 0.5 g/dL [facility] Prot Elec - Gamma 0.8 0.8 - 1.7 g/dL [facility] PES - Abn Protein Band 1 TNP [facility] PES-Abn Protein Band 2 TNP [facility] PES-Abn Protein Band 3 [facility] Prot Elec - Interpretation SEE NOTE [facility] Comment:Alpha-1 globulin inc rease noted.THIS TEST WAS PERFORMED AT:[employer] [address] [id number] BELL MD 02/28/2023 9:10 AM EST 02/28/2023 9:22 AM EST Generic External Data Provider LAB BLOOD ORDERAB LES Final Result Performing Organization Address [facility] de Phone Number [facility] [address] [place] [phone] * Immunofixation (MICHAEL), Urine (02/28/2023 9:10 AM EST) MICHAEL Interpretation [facility] Comment:No monoclonal protei ns detected.THIS TEST WAS PERFORMED AT:[employer] [address] [id number] BELL MD 02/28/2023 9:10 AM EST 02/28/2023 10:14 AM EST Generic External Data Provider LAB URINE ORDERAB LES Final Result Performing Organization Address [facility] de Phone Number [facility] [address] [place] [phone] documented in this encounter Visit Diagnoses Not on filedocumented in this encounter Additional Health Concerns Assessment Noted Time PHQ-9 Depression Total Score: 11 08/07/2 023 3:01 PM EDT documented as of this encounter Care Teams Coverstitch Binder Relationship Specialty Start Date End Date Candace Quiñones MD [address] [place] [address] PCP - General Internal Medicine 07/24/22 10/11/23 Amna Richards DO [address] [place] [address] PCP - General Family Medicine 10/12/23 [facility] 05/08/24 documented as of this encounter
--- OUTSIDE RECORDS SUMMARY | 2024-07-15 16:15 | XMS_ITS | Encounter Summary ---
Author Organization [employer] Address [address] [facility] 7t [place] [address] Care Team Providers Care Laborer Concrete Plant Name Role Phone Candace Quiñones MD Primary Care Pro vider Amna Richards DO Primary Care Provider + [phone] Reason for Visit * Reason Onset Date Comments Med Refill 03/20/2023 Encounter Details Date Type Department Care Team (Late st Contact Info) Description 03/20/2023 Telephone [facility] MEDICINE [address] [place] [address] Candace Quiñones MD [address] [place], [place] [phone] Med Refill Social History Tobacco Use Types [...] 50 MG tablet To be sent to: [facility]/pharmacy #[id number] documented in this encounter Plan of Treatment Upcoming Encounters Date Type Department Care Team (Late st Contact Info) Description 08/13/2024 10:30 AM EDT Clinical Support [facility] MEDICINE [address] [place] [address] Ester Chatman RN documented as of this encounter Visit Diagnoses Not on filedocumented in this encounter Additional Health Concerns Assessment Noted Time PHQ-9 Depression Total Score: 11 023 3:01 PM EDT documented as of this encounter Care Teams Laborer Concrete Plant Relationship Specialty Start Date End Date Candace Quiñones MD [address] [place] [address] PCP - General Internal Medicine 07/24/22 10/11/23 Amna Richards DO [address] [place] [address] PCP - General Family Medicine 10/12/23 [facility] 05/08/24 documented as of this encounter
--- OUTSIDE RECORDS SUMMARY | 2024-07-15 16:15 | XMS_ITS | Encounter Summary ---
Author Organization [employer] Address [address] [facility] 7t [place] [address] Care Team Providers Care Take Away Man Name Role Phone Candace Quiñones MD Primary Care Pro vider Amna Richards DO Primary Care Provider + [phone] Reason for Visit * Reason Onset Date Comments Med Refill [employer] 07/11/2023 The patient call ed stating that his [employer] has not been getting paid, because his PCP has not completed paperwork from [facility]. I informed him that there are no entries in his chart, stating that any paperwork was received by medical records. I provided him with the HIM Department's fax number, and he agreed to contact [facility] to have them fax any paperwork that needs to be reviewed and signed by his provider. Encounter Details Date Type Department Care Team (Late st Contact Info) Description 07/11/2023 Refill [facility] MEDICINE [address] [place], [place] [phone] Candace Quiñones MD [address] [place], [place] [phone] Social History Tobacco Use Types Packs/Day Years [...] EDT The patient called stating that his [employer] has not been getting paid, because his PCP has not completed paperwork from [facility]. I informed him that there are no entries in his chart, stating that any paperwork was received by medical records. I provided him with the [facility] Department's fax number, and heagreed to contact [facility] to have them fax any paperwork that needs to be reviewed and signed by his provider. documented in this encounter Plan of Treatment Upcoming Encounters Date Type Department Care Team (Late st Contact Info) Description 08/13/2024 10:30 AM EDT Clinical Support [facility]INE [address] [place] [address] Ester Chatman, JACOB documented as of this encounter Visit Diagnoses Not on filedocumented in this encounter Additional Health Concerns Assessment Noted Time PHQ-9 Depression Total Score: 11 023 3:01 PM EDT documented as of this encounter Care Teams Take Away Man Relationship Specialty Start Date End Date Candace Quiñones MD [address] [place] [address] PCP - General Internal Medicine 07/24/22 10/11/23 Amna Richards DO [address] [place] [address] PCP - General Family Medicine 10/12/23 [facility] 05/08/24 documented as of this encounter
--- OUTSIDE RECORDS SUMMARY | 2024-07-15 16:15 | XMS_ITS | Clinical Summary ---
Author Organization [facility] Address [address] [place] [address] Care Team Providers Care Maintenance Planning Clerk Name Role Phone MinorAmna chanel Primary Care Provider [phone] Medical History Medical History Date Comments Tobacco use 05/28/2017 DX:Tobacco use Asthma-COPD overlap syndrome (CMS/HCC V24, CMS/HCC V28) 05/28/2017 DX:Asthma-COPD overlap syndr ome ([facility]) Social History Tobacco Use [...] - 2023-2 5 season) 2023 Influenza Vaccine (Season Ended) 2024 HIB Vaccines Aged Out No longer eligi [...] age to complete this topic Meningococcal B Vaccine Aged Out No l onger eligible based on patient's age to complete this topic RSV Immunization Patients Un marylou 20 months Aged Out No longer eligible b ased on patient's age to complete this topic Varicella Vaccines Aged Out No longer eligible based on patient's age to complete this topic Advance Directives Documents on File Type Date Recorded Patient Scrum Product Owner Expl anation Health Care Decision (hx) 06/24/2017 AD MCCANN DIRECTIVE Health Care Decision (hx) 06/24/2017 AD MCCANN DIRECTIVE Health Care Decision (hx) 06/24/2017 AD MCCANN DIRECTIVE Health Care Decision (hx) 06/24/2017 AD MCCANN DIRECTIVE Health Care Decision (hx) 06/24/2017 AD MCCANN DIRECTIVE Care Teams Maintenance Planning Clerk Relationship Specialty Start Date End Date Amna Richards DO [address] [place] [address] PCP - General Internal Medicine 06/20/17
--- OUTSIDE RECORDS SUMMARY | 2024-07-15 16:15 | XMS_ITS | Encounter Summary ---
Author Organization [employer] Address [address] [facility] [address] [place] [address] Care Team Providers Care Design Coordinator Name Role Phone Amna Richards DO Primary Care Provider + [phone] Reason for Visit * Reason Comments Med Refill Encounter Details Date Type Department Care Team ([facility] st Contact Info) Description 2024 Refill [facility] [address] [place], [place] [phone] Amna Richards DO [address] [place], [place] [phone] Social History Tobacco Use Types Packs/Day Years [...] Description 08/13/2024 10:30 AM EDT Clinical Support [facility] [address] [place] [address] Ester Chatman, RN documented as of this encounter Visit Diagnoses Not on filedocumented in this encounter Additional Health Concerns Assessment Noted Time PHQ-9 Depression Total Score: 11 024 1:53 PM EDT documented as of this encounter Care Teams Design Coordinator Relationship Specialty Start Date End Date Amna Richards DO [address] [place] [address] PCP - General Family Medicine 10/12/23 [facility] 05/08/24 documented as of this encounter
--- OUTSIDE RECORDS SUMMARY | 2024-07-15 16:15 | XMS_ITS | Clinical Summary ---
Author Organization [employer] Address [address] [facility] [address] [place] [address] Care Team Providers Care Wildlife Biologist Name Role Phone Susie Amna Primary Care Provider + [phone] Allergies Active Allergy Reactions Criticality Noted Date [...] BY MOUTH EVERY MORNING 023 Active Creon 38213-69161 units capsule TAKE 1 CAPSULE BY MOUTH [...] complication, without long-term current use of insulin ([facility]) USE WITH INSULIN ONCE A DAY 100 [...] 024 Active ergocalciferol (Vitamin D2) 1.25 MG (33383 UT) capsule TAKE 1 CAPSULE BY MOUTH ONE TIME PER WEEK 12 capsule 1 024 Active albuterol 108 (90 Base) MCG/ACT inhalerIndicati ons:Bronchitis Inhale 2 puffs every 6 (six) hours if needed for wheezing or shortness of breath. 18 g 025 Active Blood Pressure kitIndications: Elevated blood pressure [...] as needed for wheezing. 75 mL 2 2025 Active zafirlukast (Accolate) 20 MG tablet [...] evening, and at bedtime (pain). 150 g Active alendronate (Fosamax) 70 MG tablet TAKE [...] by mouth at bedtime. 30 tablet 3 2024 Active acetaminophen (Tylenol 8 Hour) 650 MG ER tablet Take 1 tablet (650 mg) by mouth every 8 (eight) hours if needed for mild pain. Do not crush, chew, or split. 60 tablet 2025 Active lidocaine (Lidoderm) 5 % patch Apply 1-2 patches topically if needed each day for mild pain. Remove & discard patch within 12 hours or as directed by MD. 60 patch Active atorvastatin (Lipitor) 10 MG tablet TAKE 1 TABLET BY MOUTH EVERYDAY AT BEDTIME 90 tablet 1 025 Active Eliquis 5 MG tablet Take 1 tablet (5 mg) by mouth 2 times daily. 60 tablet 1 025 Active nicotine (Nicoderm, Step 2) 14 MG/24HR patch Place 1 patch on the skin 1 (one) time each day at the same time. 025 Active Varenicline Tartrate, Starter, 0.5 MG X 11 & 1 MG X 42 tablet therapy pack Take 1 0.5mg tab orally 1x daily x 3d, then 1 0.5mg tab 2x daily x 4d, then 1 1mg tab 2x daily. 019 Active nicotine polacrilex (Nicorette) 2 MG gum CHEW 1 PIECE BUCCALLY EVERY 2 HOURS FOR 30 DAYS Active baclofen (Lioresal) 20 MG tabletIndicatio ns:Muscle spasm Take 1 tablet (20 mg) by mouth if needed at bedtime for muscle spasms. 30 tablet 025 2024 Active Misc. Devices (Pulse Oximeter Deluxe) miscIndications :Chronic obstructive pulmonary disease, unspecified COPD type (CMS/HCC) 1 each Once per day. 1 each Active metFORMIN (Glucophage) 1000 MG tablet TAKE 1 TABLET BY MOUTH TWICE A DAY WITH BREAKFAST AND EVENING MEAL 180 tablet 025 Active traMADol (Ultram) 50 MG tabletIndicatio ns:Chronic pain of right hand Take 1 tablet (50 mg) by mouth every 6 (six) hours if needed for severe pain. 112 tablet 025 Active nicotine polacrilex (Commit) 4 MG lozenge Dissolve 1 lozenge (4 mg) in the mouth every 2 (two) hours if needed for smoking cessation. 100 lozenge 1 024 2024 Discontinued(M ed list cleanup (will not trigger notification to Pharmacy)) metFORMIN (Glucophage) 1000 MG tablet TAKE 1 TABLET BY MOUTH TWICE A DAY WITH BREAKFAST AND EVENING MEAL 180 tablet 025 2024 Discontinued traMADol (Ultram) 50 MG tabletIndicatio ns:Chronic pain of right hand Take 1 tablet (50 mg) by mouth every 6 (six) hours if needed for severe pain for up to 28 days. 112 tablet 025 2024 Misc. Devices (Pulse Oximeter Deluxe) miscIndications :Chronic obstructive pulmonary disease, unspecified COPD type (CMS/HCC) 1 each Once per day. 1 each 025 2024 Discontinued guaiFENesin (Robitussin) 100 MG/5ML syrupIndication s:Chronic obstructive pulmonary disease, unspecified COPD type (CMS/HCC) Take 10 mL (200 mg) by mouth if needed in the morning, at noon, and at bedtime for cough for up to 10 days. 120 mL 025 2024 Active Problems Patient Care Coordination No te Formatting of this note migh t be different from the original. C3/CM Cassidy Kaye RN Problem Noted Date Diagnosed Date Muscle spasm 07/03/2024 Assessment & Plan (07/04/2024 3:00 PM EDT): I advised to apply heat on affected area and I will prescribe for him a short course of baclofen, I counseled patient about side effects of this medication including somnolence do not mix it with narcotics and do not take it if he is going to do activities that require his concentration like driving Long-term current use of opiate analgesic 2023 Overview (11/12/2023): Last [employer] Agreement signed: 07/27/23 Medication: Tramadol 50mg Q6H [...] tramadol should be requested with ID code [id number] --pt states today he had morphine px [...] Patient was referred in the past to police clerk for this. Will follow up in next visit with patient about this and if still present at next labs will consider to refer again -CBC including blood Smear ordered at last visit, not done labs yet Assessment & Plan (10/24/2022 5:04 AM EDT): Most likely 2/2 chronic steroid use? Patient was referred in the past to police clerk for this. Will follow up in next visit with patient about this and if still present at next labs will consider to refer again -CBC including blood Smear ordered at last visit, not done labs yet Assessment & Plan (08/21/2022 2:34 PM EDT): Most likely 2/2 chronic steroid use? Patient was referred in the past to police clerk for this. Will follow up in next visit with patient about this and if still present at next labs will consider to refer again -labs today including blood smear Assessment & Plan (07/21/2022 6:41 PM EDT): Most likely 2/2 chronic steroid use? Patient was referred in the past to police clerk for this. Will follow up in next visit with patient about this and if still present at next labs will consider to refer again Assessment & Plan (07/12/2022 10:17 PM EDT): Most likely 2/2 chronic steroid use? Patient was referred in the past to police clerk for this. Will follow up in next [...] length about tobacco cessation -continue following w wellness coordinator f lung ca screening ( as per in lung nodules problem) -start on chantix by wellness coordinator Assessment & Plan (10/24/2022 5:08 AM EDT): [...] length about tobacco cessation -continue following w wellness coordinator f lung ca screening ( as per [...] length about tobacco cessation -continue following w wellness coordinator f lung ca screening ( as per [...] scarring of lung base -continue care w wellness coordinator Assessment & Plan (10/23/2022 8:40 PM EDT): [...] scarring of lung base -continue care w wellness coordinator Assessment & Plan (08/21/2022 2:28 PM EDT): [...] the patient to follow up with his wellness coordinator about nodules and hx of tobacco smoking --Pt thinks he also had a CT chest for lung nodules 5 mo ago- will try to get Record ( requested already to [facility] today-( Karen Dave) but will not repeat [...] the patient to follow up with his wellness coordinator about nodules and hx of tobacco smoking Assessment & Plan (07/12/2022 9:58 PM EDT): Patient with multiple pulmonary nodules seen in previous CT scans including the last one. In one CT scan in 2018 he did have tree in bud nodules in [facility]. Rec for bronchoscopy, per patient he never underwent any procedure. - I advised the patient to follow up with his wellness coordinator about this. Chronic constipation 05/03/2022 Assessment & [...] up apt --also I request today to [facility]-Huan Dave) to try to get last colonoscopy [...] 2 diabetes mellitus 04/11/2022 Assessment & Plan (07/04/2024 2:59 PM EDT): Continue with current medication regimen and diabetic diet follow-up with PCP Assessment & Plan (12/01/2022 12:28 AM EDT): Hb1ac 10/2022 is 7.4 <-- 10.2 <-- - 9.2. Likely due to chronic steroid use. - Stop Farxiga 2 mo ago as possible cause of worsening balanitis - Continue Metformin 1 g BID. - Continue januvia 25 mg daily instead,discussed about GLP1 but refusing x now -continue basal insulin- 10 HS -referred to printer's devil----to eval x osteoporosis , DM and 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 that can explain pts physical features w large abdominal girth and decrease muscle mass in extremities -with normal liver and no peritoneal fluid in CT scan and abd US.---apt scheduled x 02/01/2023 at 10 am - Patient would like a product development consultant -Following already ??-discussed about hypoglyecemic symptoms and to check CBGs in fasting and 2 h after biggest meal and bring at next visit readings -will refer to shipping receiving clerk at future visit -referred to associate professor of history Assessment & Plan (10/24/2022 5:04 AM EDT): Hb1ac 10/2022 is 7.4 <-- 10.2 <-- - 9.2. Likely due to chronic steroid use. - Stop Farxiga 2 mo ago as possible cause of worsening balanitis - Continue Metformin 1 g BID. - Continue januvia 25 mg daily instead,discussed about GLP1 but refusing x now -continue basal insulin- 10 HS -referred to [employer] devil----to eval x osteoporosis , DM and likely Martin syndrome that can explain pts physical features w large abdominal girth and decrease muscle mass in extremities -with normal liver and no peritoneal fluid in CT scan and abd US.---apt scheduled x 11/02/2022 at 9 am- - Patient would like a product development consultant referral.-referred already ??-discussed about hypoglyecemic symptoms and to check CBGs in fasting and 2 h after biggest meal and bring at next visit readings -will refer to shipping receiving clerk at future visit -referred to associate professor of history Assessment & Plan (08/21/2022 2:19 PM EDT): [...] u from 7 u HS -referred to printer's devil----to eval x osteoporosis ,uncontrolled DM and likely Martin syndrome that can explain pts physical features w large abdominal girth and decrease muscle mass in extremities -with normal liver and no peritoneal fluid in CT scan.---apt scheduled x 11/02/2022 at 9 am--I told today this info to pt by phone - Patient would like a product development consultant referral.-referred today ??-discussed about hypoglyecemic symptoms and to check CBGs in fasting and 2 h after biggest meal and bring at next visit readings -will refer to shipping receiving clerk at future visit -referred today to associate professor of history -DM labs today in fasting Assessment & [...] lantus-pen instead of basaglar) -referred today to printer's devil----to eval x osteoporosis ,uncontrolled DM and likely Martin syndrome that c an explain pts physical features w large abdominal girth and decrease muscle mass in extremities -with normal liver and no peritoneal fluid in CT scan. - Patient would like a product development consultant referral. Will refer at next visit. ??-discussed [...] at next visit. - Will refer to printer's devil at next appointment in 2 weeks. - Patient would like a product development consultant referral. Will refer at next visit. Assessment & Plan (06/20/2022 11:48 AM EDT): Blood glucose is 440 today Declines insulin Encourage having Metformin regularly CMP to evaluate electrolytes COPD (chronic obstructive pulmonary disease) 09/2014 Assessment & Plan (07/04/2024 3:01 PM EDT): I prescribed for him today cough syrup to help him with his cough, I advised to continue with same inhalers, continue with oxygen as needed at and at night and follow-up with pulmonology I also prescribed for him pulse ox so he can monitor his oxygenation, ED precautions were reviewed with him Assessment & Plan (12/01/2022 12:36 AM EDT): [...] of inhalers. Advised patient to follow with wellness coordinator for uncontrolled COPD. - Guaifenesin to try [...] today Essential hypertension 02/22/2015 Assessment & Plan (07/04/2024 3:02 PM EDT): Today blood pressure reading is high, patient admitted he did not took his blood pressure medication today, I advised low-sodium diet, to take his medications every day without missing any dose and follow-up with PCP Assessment & Plan (12/01/2022 12:34 AM EDT): [...] last year. 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 - Will refer to endocrinology at [...] apt for HFU after is dc from [facility] 07/21/2022 10/11/2023 Assessment & Plan (12/01/2022 12:31 AM EDT): Pt w [facility] symptoms-chronic ,on and off and phymosis but [...] with PCP History of COVID-19 04/11/2022 07/22/19 23 Anxiety 02/22/2015 07/21/2022 Asthma 02/22/2015 05/03/2022 Kidney stone 02/22/2015 05/03/2022 Tobacco dependence syndrome 02/22/2015 05/03/2022 Encounters Date Type Department Care Team Description 07/14/2024 Refill [facility] [address] [place] [address] Amna Richards DO Chronic pain of right hand 07/13/2024 Refill [facility] [address] [place] [address] Amna Richards, 07/10/2024 Patient Outreach [address] [address] Amna Richards, Care Coordination 07/08/2024 2:00 PM EDT Clinical Support [address] [address] Milton Underwood RN Long-term current use of opiate analgesic 07/08/2024 Travel 07/08/2024 Patient Outreach [address] [address] Amna Richards DO Care Management (C3- Initial assessment/enrollment - LVM) 07/04/2024 Patient Outreach [address] [address] Amna Richards DO 07/04/2024 Patient Outreach [address] [address] Amna Richards, 07/03/2024 2:00 PM EDT Office Visit [address] [address] Candace Singh MD Muscle spasm (Primary Dx); Type 2 diabetes mellitus without complication, without long-term current use of insulin ([facility]); Chronic obstructive pulmonary disease, unspecified COPD type ([facility]); Essential hypertension 07/03/2024 Patient Outreach [address] [address] Amna Richards, Care Coordination 07/03/2024 Travel 07/03/2024 Patient Outreach [address] [address] Amna Richards DO 07/02/2024 Patient Outreach [address] [address] Amna Richards, 07/02/2024 Patient Outreach [address] [place] [address] Amna Richards DO Care Coordination (C3 [facility] banda telephone call outreach) 06/30/[address] [place] [address] Amna Richards, Medication Question 06/30/[address] [address] Amna Richards DO Appointment Request 06/27/2024 Patient Outreach [address] [address] Amna Richards DO Care Coordination (C3 [facility] Banda telephone call outreach) 06/26/[address] [address] Amna Richards DO Chart Prep 06/24/2024 Patient Outreach [address] [address] Amna Richards DO 06/23/2024 Patient Outreach [address] [address] Amna Richards DO Transition Of Care (Tcm) (HDF scheduled) 06/23/[address] [address] Amna Richards DO Hospital Follow-up 06/19/2024 Patient Outreach [facility] [address] [place] [address] Amna Richards DO Transition Of Care (Tcm) (HDF unscheduled. ) 06/17/2024 Patient Outreach [address] [address] Amna Richards DO Care Coordination (C3 [facility] Ginette Banda telephone call outreach) 06/17/2024 Patient Outreach [address] [address] Amna Richards DO Care Coordination (C3 CM-[facility] Banda telephone call outreach) 06/17/2024 Patient Outreach [address] [address] Amna Richards DO Care Coordination ([address] Ginette Banda chart review) 06/17/2024 Patient Outreach [address] [address] Amna Richards DO Care Coordination 06/16/2024 Patient Outreach [address] [address] Amna Richards DO Care Coordination ([facility]- chart review) 06/16/2024 Patient Outreach [address] [address] Amna Richards DO 06/15/2024 Orders Only GENERIC EXTERNAL DATA DEPARTMENT Provider, Generic External Data 06/04/2024 2:00 PM EDT Clinical Support [address] [address] Ester Chatman, RN Primary osteoarthritis of right knee (Primary Dx) 06/04/[address] [address] Ester Chatman, testing analyst pain of right hand (Primary Dx) 06/04/2024 Travel 06/04/2024 Patient Outreach [address] [address] Amna Richards DO Care Coordination ([address] Ginette Banda telephone call outreach) 06/02/2024 9:45 AM EDT Office Visit [address] [address] Amna Richards DO Closed fracture of orbit, initial encounter (CMS/HCC) (Primary Dx); COPD with asthma (CMS/HCC); Gluteal abscess; Chronic pain of right hand; Left hand pain; Type 2 diabetes mellitus without complication, without long-term current use of insulin (CMS/HCC) 06/02/2024 Travel 05/30/2024 Population Health Risk Score [facility] (C3) Department [address] [place] [id number] Provider, Population Health Generic 05/28/2024 Patient Outreach [facility] [place] [address] Amna Richards DO Care Coordination ([address] Ginette Banda telephone call outreach) 05/27/2024 Refill [facility] [place] [address] Amna Richards DO 05/26/2024 Orders [place] [address] Amna Richards DO Type 2 diabetes mellitus without complication, without long-term current use of insulin (CMS/HCC) (Primary Dx) 05/23/2024 Telephone [facility] [place] [address] Amna Richards DO Referral 05/22/2024 Refill [facility] [place] [address] Amna Richards DO 05/21/2024 Telephone [facility] [place] [address] Amna Richards DO Nurse Triage 05/16/2024 9:15 AM EST Office Visit [facility] [place] [address] Amna Richards DO Chronic pain of right hand (Primary Dx); Type 2 diabetes mellitus without complication, without long-term current use of insulin (CMS/HCC) 05/16/2024 Telephone [facility] [place] [address] Amna Richards DO HDF 05/16/2024 Travel 05/16/2024 Refill [facility] [place] [address] Amna Richards DO 05/15/2024 Telephone [facility] [place] [address] Amna Richards DO FYI 05/14/2024 Travel 05/13/2024 Patient Outreach [facility] [place] [place] [address] Amna Richards DO Transition Of Care (Tcm) (HDF- Unscheduled SECOND LVM) 05/09/2024 Patient Outreach [facility] [address] [facility] [place] [address] Amna Richards DO Care Coordination (C3 [facility] Banda telephone call outreach) 05/09/2024 Patient Outreach [facility] [address] [facility] [place] [address] Amna Richards, Care Coordination (C3 CM-[facility] Banda telephone call outreach) 05/09/2024 Refill [facility] [address] [facility] [place] [address] Amna Richards, 05/09/2024 Refill [facility] [address] [place] [address], [place] [address] Amna Richards, 05/08/2024 Patient Outreach [address] [address] Amna Richards DO Transition Of Care (Tcm) (HDF- Unscheduled LVM) 05/07/2024 Patient Outreach [facility] [address] [place] [address], [place] [address] Amna Richards DO Care Coordination (C3 [facility] Banda telephone call outreach ) 05/07/2024 Refill [facility] [address] [place] [address] Amna Richards DO Hypertension, unspecified type 05/02/2024 Patient Outreach [facility] [address] [place] [address] Amna Richards DO Care Coordination (C3 [facility] Banda telephone call outreach ) 05/02/2024 Patient Outreach [address] [place] [address] Amna Richards DO Care Coordination (C3 [facility] Banda telephone call outreach) 05/02/2024 Telephone [facility] [address] [place] [address] Amna Richards DO Care Management (C3CM- chart review) 05/01/[address] [address] Amna Richards DO Appointment Request 05/01/[address] [address] Amna Richards DO 04/23/2024 6:20 PM EST Office Visit [facility] [address] [address] Patricia Padilla NP Cough in adult patient (Primary Dx); Elevated blood pressure reading in office with diagnosis of hypertension; Itchy eyes; Wheezing 04/23/2024 Travel 04/23/[address] [facility] [address] [address] India Dey, RN Nurse Triage (Chest pain) 04/22/[address] [address] Amna Richards DO Appointment Request; Reschedule [facility] [employer] appt from 02/21/24 04/22/[address] [address] Amna Richards DO Nurse Triage 04/20/[address] [address] Bong Sahni MD Bronchitis 04/17/[address] [address] Amna Richards DO Appointment Request from Last 3 Months Immunizations Name Administration [...] Sign Reading Time Taken Comments Blood Pressure 148/98 07/03/2024 2:51 PM EDT Pulse 99 07/03/2024 2:18 PM EDT Temperature 37 ??C (98.6 ??F) 07/03/2024 2:18 PM EDT Respiratory Rate 20 07/03/2024 2:18 PM EDT Oxygen Saturation 96% 06/02/2024 10:00 AM EDT Inhaled Oxygen Concentration - - Weight 71 kg (156 lb 9.6 oz) 07/03/2024 2:18 PM EDT Height 172.7 cm (5' 8 ) 07/03/2024 2:18 PM EDT Body Mass Index 23.81 07/03/2024 2:18 PM EDT Plan of Treatment Upcoming Encounters Date Type Department Care Team (Late st Contact Info) Description 08/13/2024 10:30 AM EDT Clinical Support [address] [id number] Ester Chatman, RN Health Maintenance Due Date [...] 07/05/2021 Lipid Panel 12/02/2023 12/01/2022, 07/05/2021 Depression Screening 09/02/2024 09/03/2023, 09/03/19 24 Diabetes: Hemoglobin A1C 09/02/2024 025, 05/16/2024, 02/01/2024, Additional history exists Alcohol/Substance Use Screening 05/16/2025 05/16/2024 SDOH Screening 05/16/2025 05/16/2024 Tobacco Screening 07/03/2025 07/03/2024 DTaP/Tdap/Td Vaccines (3 - Td or Tdap) [...] Name Priority Date/Time Associated Diagnosis Comments POCT GAURAV-14 URINE DRUG SCREEN Routine 07/08/2024 2:24 PM EDT Long-term current use of opiate analgesic POCT GLUCOSE Routine 07/03/2024 2:19 PM EDT Type 2 diabetes mellitus without complication, without long-term current use of insulin ([facility]) XR CHEST 1 VIEW Routine 06/16/2024 12:13 AM EDT B TYPE NATRIURETIC PEPTIDE (BNP) Routine 06/15/2024 11:36 PM EDT HIGH SENSITIVITY TROPONIN I Routine 06/15/2024 11:36 PM EDT LIPASE Routine 06/15/2024 11:36 PM EDT MAGNESIUM Routine 06/15/2024 11:36 PM EDT COMPREHENSIVE METABOLIC PANEL Routine 06/15/2024 11:36 PM EDT CBC WITH AUTO DIFFERENTIAL Routine 06/15/2024 11:36 PM EDT SARS COV2/INFLUENZA A/B AND RSV RNA QL NAAT Routine 06/15/2024 11:36 PM EDT POCT GAURAV-14 URINE DRUG SCREEN Routine 06/04/2024 2:14 PM EDT Primary osteoarthritis of right knee POCT GLYCATED HEMOGLOBIN, TOTAL Routine 06/02/2024 10:07 AM EDT Type 2 diabetes mellitus without complication, without long-term current use of insulin ([facility]/H[facility]) POCT GLUCOSE Routine 06/02/2024 10:04 AM EDT Type 2 diabetes mellitus without complication, without long-term current use of insulin ([facility]) POCT GLYCATED HEMOGLOBIN, TOTAL Routine 05/16/2024 9:30 AM EST Type 2 diabetes mellitus without complication, without long-term current use of insulin ([facility]) POCT GLUCOSE Routine 05/16/2024 9:29 AM EST Type 2 diabetes mellitus without complication, without long-term current use of insulin ([facility]) POCT INFLUENZA A (ID NOW RAPID MOLECULAR) Routine 04/23/2024 7:28 PM EST Cough in adult patient POCT INFLUENZA B (ID NOW RAPID MOLECULAR) Routine 04/23/2024 7:28 PM EST Cough in adult patient POCT RAPID COVID ANTIGEN Routine 04/23/2024 7:26 PM EST Cough in adult patient ALBUMIN, RANDOM URINE W/CREATININE Routine 12/01/2022 12:06 PM EDT HEPATITIS C AB W/REFL TO HCV RNA, QN, PCR Routine 12/01/2022 12:01 PM EDT Health care maintenance HIV ANTIBODY/ANTIGEN ([place] [facility]) Routine 12/01/2022 12:01 PM EDT LIPID PANEL, STANDARD Routine 12/01/2022 12:01 PM EDT from Last 3 Months or Most Recently Relevant to Health Maintenance Results * POCT GAURAV-14 Urine Drug Screen (07/08/2024 2:24 PM EDT) Only the most recent of2 resultswithin the time period is included. THC Negative Cocaine Screen, Urine Negative Opiate Screen, Urine Negative Methamphetamine Screen Urine Negative Amphetamine Screen, Urine Negative Benzodiazepines Screen, Urine Negative Barbiturate Screen, Urine Negative Methadone Screen, Urine Negative Buprenophine Screen, Urine Negative TCA, Urine Negative MDMA Urine Negative ng/mL Oxycodone Screen, Urine Negative Phencyclidine (PCP), Urine Negative Propoxyphene, Urine Negative Fentanyl, Urine Negative QC Media Lot # [id number] Lot# Expiration Date Urine Urine specimen obtained by clean catch procedure / Unknown 07/08/2024 2:24 PM EDT us Amna Richards DO POINT OF CARE TEST ENTER/LOU T ORDERABLES Final Result * POCT Glucose (07/03/2024 2:19 PM EDT) Only the most recent of3 resultswithin the time period is included. Glucose Blood, POC 155 60 - 200 mg/dL QC Media Lot # [id number] Lot# Expiration Date Blood Capillary blood specimen / Unknown 07/03/2024 2:19 PM EDT us Candace Medina MD POINT OF CARE TEST EN TER/EDIT ORDERABLES Final Result * XR Chest 1 View (06/16/2024 12:13 AM EDT) Anatomical Region Laterality Modality Chest Radiographic Ju ging 06/16/2024 12:1 3 AM EDT Narrative 06/16/2024 12:16 AM EDT ? [facility] ?[address] ?[place] [address] ?XRay Report ? Signed ? Patient: Breaux,Bony ?MR#: [id number] ?? 10 ? : 1970 ?Acct:[id number] ? Age/Sex: 54 / M ?ADM Date: 06/15/24 ? Loc: HO.ED ? Attending Dr: ? Ordering Physician: Generic ED Physician ?? Date of Service: 06/15/24 ?? Procedure(s): XR chest 1V ?? Accession Number(s): [id number] ? cc: Generic ED Physician; Amna Richards DO ? CLINICAL HISTORY: cough ? 1 view chest x-ray ? Comparison: CR/SR - XR CHEST 2V - 02/29/24 14:27 EST ? Findings: ?? Mild left lower lobe atelectasis. ?? No significant pleural effusion or pneumothorax. ?? Possible mediastinal calcified granulomas, similar to prior. ?? Similar prominent/enlarged cardiac silhouette. ?? No acute fracture. ? 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 ? IMPRESSION: ?? Mild left lower lobe atelectasis. ? This document has been electronically signed by: Owen De Souza MD on ?? 06/16/2024 00:13:46 ? Dictated By: ?Owen De Souza MD ? Signed By: ?<Electronically signed by Owen De Souza MD in OV> ?06/16/24 0015 ? DD/ 0013 ? TD/TT: 06/16/24 0013 ? Security Investigator: ? Procedure Note Dimitrios, Image - 06/16/2024 [place] [address] XRay Report Signed Patient: Aldo Breaux R#: [id number] 10 : 1970Acct:[id number] Age/Sex: 54 / MADM Date: 06/15/24 Loc: HO.ED Attending Dr: Ordering Physician: Generic ED Physician Date of Service: 06/15/24 Procedure(s): XR chest 1V Accession Number(s): [id number] cc: Generic ED Physician; Amna Richards DO CLINICAL HISTORY: cough 1 view chest x-ray Comparison: CR/SR - XR CHEST 2V - 02/29/24 14:27 EST Findings: Mild left lower lobe atelectasis. No significant pleural effusion or pneumothorax. Possible mediastinal calcified granulomas, similar to prior. Similar prominent/enlarged cardiac silhouette. No acute fracture. 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 IMPRESSION: Mild left lower lobe atelectasis. This document has been electronically signed by: Owen De Souza MD on 06/16/2024 00:13:46 Dictated By: Owen De Souza MD Signed By: <Electronically signed by Owen De Souza MD in OV> 06/16/2414 DD/ TD/TT: 06/16/2412 Security Investigator: [facility] External Provider IMG XR PROCEDURES Edited Result - Final * High Sensitivity Troponin I (06/15/2024 11:36 PM EDT) [facility] TROPONIN I HIGH SENSITIVITY 7.2 <3.5 - 35.0 ng/L [facility] Comment:The Lundy high sens itivity Troponin-I results should beused in conjunction with other diagnostic information suchas ECG, clinical observations and information, and patientsymptoms to aid in the diagnosis of [place]. 06/15/2024 11:3 6 PM EDT 06/15/2024 11:40 PM EDT Generic External Data Provider LAB BLOOD ORDERAB LES Final Result [facility] [address] [place] [phone] * (ABNORMAL) SARS-CoV-2 RNA, Influenza A/B, and RSV RNA, Ql NAAT (06/15/2024 11:36 PM EDT) [facility] Influenza A PCR POSITIVE(A) Negative [facility] Influenza B PCR NEGATIVE Negative [facility] Resp Syncy Virus RNA Qual PCR NEGATIVE Negative [facility] SARS COV2 PCR NEGATIVE Negative [facility] Comment:All test results mus t be correlated with clinical findings.Negative results do not preclude SARS-CoV2, influenza Avirus, influenza B virus and/or RSV infectionand should not be used as the sole basis for treatment orother patient management decisions. Negative results must becombined with clinical observations, patient history, andepidemiological information.This test has not been evaluated for monitoring treatment ofinfection.This test has been authorized by the FDA under an EmergencyUse Authorization (EUA) for use by authorized laboratories.Testing performed on the Prism Microwave GeneXpert utilizingreal-time RT-PCR.All SARS CoV2 and positive influenza A/B results arereported to [facility]. 06/15/2024 11:3 6 PM EDT 06/15/2024 11:56 PM EDT us Generic External Data Provider LAB MICROBIOLOGY - GENERAL ORDERABLES Final Result [facility] [address] [place] [phone] * (ABNORMAL) CBC auto differential (06/15/2024 11:36 PM EDT) White Blood Count 13.7(H) 4.8 - 10.8 X10*3/uL [facility] Red Blood Count 4.50(L) 4.60 - 5.80 X10*6/uL [facility] Hemoglobin 13.8(L) 14.0 - 18.0 g/dl [facility] Hematocrit 42.0 42.0 - 52.0 % [facility] Mean Corpuscular Volume 93.3 80.0 - 98.0 fL [facility] Mean Corpuscular Hemoglobin 30.7 27.0 - 33.0 pg [facility] Mean Corpuscular HGB Conc 32.9 31.0 - 36.0 g/dl [facility] Red Cell Distribution Width 14.6 11.0 - 16.0 % [facility] Platelet Count 272 160 - 400 X10*3/uL [facility] Mean Platelet Volume 8.0(L) 9.4 - 12.4 fL [facility] Neutrophils Percent Auto 83.9(H) 45 - 73 % [facility] Imm Gran Pct Auto 1.3(H) 0.0 - 0.4 % [facility] Lymphocytes Percent Auto 6.4(L) 20 - 40 % [facility] Monocytes Percent Auto 7.2 2 - 11 % [facility] Eosinophils Percent Auto 1.0 0 - 4 % [facility] Basophils Percent Auto 0.2 0 - 2 % [facility] NRBC Pct Auto 0.0 0.0 - 0.2 /100WBC [facility] Neutrophils Absolute Auto 11.5(H) 2.0 - 8.3 x10*3/uL [facility] Imm Gran Abs Auto 0.18(H) 0.00 - 0.03 X10*3/uL [facility] Lymphocytes Absolute Auto 0.9(L) 1.2 - 4.9 X10*3/uL [facility] Monocytes Absolute Auto 1.0 0.1 - 1.2 X10*3/uL [facility] Eosinophils Absolute Auto 0.1 0.0 - 0.4 X10*3/uL [facility] Basophils Absolute Auto 0.0 0.0 - 0.2 X10*3/uL [facility] NRBC Abs Auto 0.000 0.0 - 0.012 X10*3/uL [facility] 06/15/2024 11:3 6 PM EDT 06/15/2024 11:40 PM EDT us Generic External Data Provider LAB BLOOD ORDERAB LES Final Result [facility] [address] [place] [phone] * B Type Natriuretic Peptide (BNP) (06/15/2024 11:36 PM EDT) B Type Natriuretic Peptide 38 <100 pg/mL [facility] 06/15/2024 11:3 6 PM EDT 06/16/2024 12:26 AM EDT us Generic External Data Provider LAB BLOOD ORDERAB LES Final Result Performing Organization Address [facility]/ZIP Co de Phone Number [facility] [address] [place] [phone] * Magnesium (06/15/2024 11:36 PM EDT) Pathologist [facility] Magnesium 1.9 1.6 - 2.6 mg/dL [facility] 06/15/2024 11:3 6 PM EDT 06/15/2024 11:40 PM EDT Generic External Data Provider LAB BLOOD ORDERAB LES Final Result Performing Organization Address [facility] Co de Phone Number [facility] [address] [place] [phone] * Lipase (06/15/2024 11:36 PM EDT) Pathologist [facility] Lipase 23 8 - 78 U/L [facility] 06/15/2024 11:3 6 PM EDT 06/15/2024 11:40 PM EDT Generic External Data Provider LAB BLOOD ORDERAB LES Final Result Performing Organization Address [facility] Co de Phone Number [facility] [address] [place] [phone] * (ABNORMAL) Comprehensive Metabolic Panel (06/15/2024 11:36 PM EDT) Pathologist [facility] Sodium 138 135 - 145 mmol/L [facility] Potassium 4.3 3.3 - 5.1 mmol/L [facility] Chloride 102 96 - 108 mmol/L [facility] Carbon Dioxide 29 22 - 29 mmol/L [facility] Anion Gap 11(L) 12 - 20 [facility] Urea Nitrogen (BUN) 10 9 - 16 mg/dL [facility] Creatinine, Serum 0.68 0.5 - 1.4 mg/dL [facility] Creatinine Clr Calc Pharmacy 117.3 [facility] Comment:eGFR (calculated fro m the MDRD study equation) and eCrCl(calculated from the Cockcroft-Gault equation) are based ondifferent parameters and may not yield comparable results.If eCrCl result is absurd, please check patient'sheight/weight. Estimated Glomerular Filt Rate >60 [facility] Comment:Chronic Kidney Disea se: Estimated GFR < 60 mL/min/1.93q5Tqxtky Kidney Disease: Estimated GFR < 15 mL/min/1.73m2 Glucose 104 60 - 115 mg/dL [facility] Calcium 8.9 8.4 - 10.2 mg/dL [facility] Bilirubin, Total 0.3 0.0 - 1.0 mg/dL [facility] Aspartate Amino Transferase 18 5 - 37 U/L [facility] Alanine Aminotransferase 19 0 - 40 U/L [facility] Total Protein 6.7 6.5 - 8.0 g/dL [facility] Albumin Level 4.0 3.5 - 5.0 g/dL [facility] Alkaline Phosphatase 58 39 - 117 U/L [facility] 06/15/2024 11:3 6 PM EDT 06/15/2024 11:40 PM EDT us Generic External Data Provider LAB BLOOD ORDERAB LES Final Result [facility] [address] [place] [phone] * (ABNORMAL) POCT HGB A1C (06/02/2024 10:07 AM EDT) Only the most recent of2 resultswithin the time period is included. Hemoglobin A1C 7.6(A) 4.0 - 6.0 % QC Media Lot # [id number] Lot# Expiration Date Blood 06/02/2024 10:0 7 AM EDT us Amna Jurcsak DO POINT OF CARE TEST ENTER/LOU T ORDERABLES Final Result * POCT Rapid Influenza B LUNDY ID NOW (04/23/2024 7:28 PM EST) [facility] Influenza B Negative Negative, Indeterminate [facility] Swab 04/23/2024 7:[address] [facility] BODY SHOP WORKER POINT OF CARE TEST ENTER/EDIT O RDERABLES Final Result Performing Organization Address City/[facility]/ZIP Co de Phone Number [facility] [address] [place] [phone] * POCT Rapid Influenza A LUNDY ID NOW (04/23/2024 7:28 PM EST) [facility] Influenza A Negative Negative, Indeterminate [facility] Swab 04/23/2024 7:28 PM EST [facility] POINT OF CARE TEST ENTER/EDIT O RDERABLES Final Result Performing Organization Address [facility] Co de Phone Number [facility] [address] [place] [phone] * POCT Rapid Covid-19 BinaxNOW (04/23/2024 7:26 PM EST) [facility] Rapid COVID Ag Negative Swab 04/23/2024 7:[address] [facility] BODY SHOP WORKER POINT OF CARE TEST ENTER/EDIT O RDERABLES Final Result * (ABNORMAL) Albumin, Random Urine W/Creatinine (12/01/2022 12:06 PM EDT) [facility] Creatinine, Urine 134.93 mg/dL [facility] Microalbumin Urine 71.0 mg/L [facility] Microalbum Creatinine Ratio Ur 52.6(H) <30 ug/mg cr [facility] Comment:Albumin/Creatinine R atio Reference Ranges: Normal: < 30 ug/mg creatinine Microalbuminuria: 30 - 300 ug/mg creatinineClinical Albuminuria: > 300 ug/mg creatinine 12/01/2022 12:0 6 PM EDT 12/01/2022 2:44 PM EDT us Candace Palmer MD LAB URINE ORDERAB LES Final Result Performing Organization Address City/[facility]/ZIP Co de Phone Number [facility] [address] [place] [phone] * HIV Ab/Ag ([facility]) (12/01/2022 12:01 PM EDT) HIV AB/AG Nonreactive Nonreactive [facility] Comment:HIV-1 p24 Ag and/or HIV-1/HIV-2 Ab not detected.A test result that is nonreactive does not exclude thepossibility of exposure to or infection with HIV-1 and/orHIV-2. Nonreactive results in this assay for individualswith prior exposure to HIV-1 and/or HIV-2 may be due toantigen and antibody levels that are below the limit ofdetection of this assay.The Smartdate HIV Ag/Ab Combo assay result andsupplemental assay results should be interpreted inconjunction with the patient's clinical presentation,history and other laboratory results. If the results areinconsistent with clinical evidence, additional testing issuggested to confirm the result. 12/01/2022 12:0 1 PM EDT 12/01/2022 2:52 PM EDT us Candace Palmer MD LAB BLOOD ORDERAB LES Final Result Performing Organization Address City/[facility]/ZIP Co de Phone Number [facility] [address] [place] [phone] * Hepatitis C Antibody with Reflex to HCV, RNA, Quantitative, Real-Time PCR (12/01/2022 12:01 PM EDT) Hepatitis C Antibody Nonreactive Nonreactive [facility] Comment:Antibodies to HCV no t detected; does not exclude early acuteHCV infection. Blood Venous blood specimen / Unknown 12/01/2022 12:01 PM EDT 12/01/2022 2:52 PM EDT Candace Palmer MD LAB BLOOD ORDERAB LES Final Result Performing Organization Address [facility]/ZIP Co de Phone Number [facility] [address] [place] [phone] * (ABNORMAL) Lipid Panel, Standard (12/01/2022 12:01 PM EDT) Triglycerides 79 <150 mg/dL [facility] Comment:Desirable Triglyceri de: less than 150 mg/dLBorderline High Triglyceride 150-199 mg/dLHigh Triglyceride: 200-499 mg/dLVery High Triglyceride: greater than or equal to 5OO mg/dL Cholesterol 178 <200 mg/dL [facility] Comment:Desirable Cholestero l: less than 200 mg/dLBorderline High Cholesterol: 200-239 mg/dLHigh Cholesterol: greater than 239 mg/dL LDL Cholesterol Calculated 100(H) <100 mg/dL [facility] Comment:Desirable LDL: less than 100 mg/dLNear Optimal/Above Optimal LDL: 110- 129 mg/dLBorderline High LDL: 130-159 mg/dLHigh LDL: 160-189 mg/dLVery High LDL: greater than or equal to 190 mg/dL HDL Cholesterol 63 >40 mg/dL [facility] Comment:Desirable HDL: great er than 40 mg/dL Note: This HDL assay may give artificially low results in patients with liver disease. 12/01/2022 12:0 1 PM EDT 12/01/2022 2:52 PM EDT us Candace Palmer MD LAB BLOOD ORDERAB LES Final Result Performing Organization Address City/[facility]/ZIP Co de Phone Number [facility] [address] [place] [phone] from Last 3 Months or Most Recently Relevant to Health Maintenance Insurance * Guarantor: Aldo Breaux Account Type Relation to Patient Date of Phone Billing Address Personal/Family Self [address] Care Teams Wildlife Biologist Relationship Specialty Start Date End Date Amna Richards DO [address] [place] [address] PCP - General Family Medicine 10/12/23 [facility] 05/08/24
--- OUTSIDE RECORDS SUMMARY | 2024-07-15 16:15 | XMS_ITS | Encounter Summary ---
Author Organization [employer] Address [address] [place] [address] [address] [place] [address] Care Team Providers Care International Logistics Manager Name Role Phone Candace Quiñones MD Primary Care Pro vider Amna Richards DO Primary Care Provider + [phone] Reason for Visit * Reason Comments Med Refill Encounter Details Date Type Department Care Team (Late st Contact Info) Description 05/17/2023 Refill [facility] [address] [place] [address] Candace Quiñones MD [address] [place] [address] Fracture of vertebra due to osteoporosis, sequela [...] Description 08/13/2024 10:30 AM EDT Clinical Support [facility] [address] [place] [phone] Ester Chatman RN documented as of this encounter Visit Diagnoses Diagnosis Fracture of vertebra due to osteoporosis, sequela documented in this encounter Additional Health Concerns Assessment Noted Time PHQ-9 Depression Total Score: 11 023 3:01 PM EDT documented as of this encounter Care Teams International Logistics Manager Relationship Specialty Start Date End Date Candace Quiñones MD [address] [place] [phone] PCP - General Internal Medicine 07/24/22 10/11/23 Aman Richards DO [address] [place] [phone] PCP - General Family Medicine 10/12/23 [facility] 05/08/24 documented as of this encounter
--- OUTSIDE RECORDS SUMMARY | 2024-07-15 16:15 | XMS_ITS | Encounter Summary ---
Author Organization [employer] Address [address] [facility] 7t [place] [address] Care Team Providers Care Brain Surgeon Name Role Phone Susie Amna Primary Care Provider + [phone] Reason for Visit * Reason Comments Med Refill Encounter Details Date Type Department Care Team ([facility] st Contact Info) Description 01/25/2024 Refill [facility] [address] [place] [address] Candace Singh MD [address] [place] [address] Fracture of vertebra due to osteoporosis, sequela [...] Description 08/13/2024 10:30 AM EDT Clinical Support [facility] [address] [place] [address] Ester Chatman RN documented as of this encounter Visit Diagnoses Diagnosis Fracture of vertebra due to osteoporosis, sequela documented in this encounter Additional Health Concerns Assessment Noted Time PHQ-9 Depression Total Score: 11 024 1:53 PM EDT documented as of this encounter Care Teams Brain Surgeon Relationship Specialty Start Date End Date Amna Richards DO [address] [place] [address] PCP - General Family Medicine 10/12/23 [facility] 05/08/24 documented as of this encounter
--- OUTSIDE RECORDS SUMMARY | 2024-07-15 16:15 | XMS_ITS | Encounter Summary ---
Author Organization [employer] Address [address] [place] [address] [address] [place] [address] Care Team Providers Care Sign Language Translator Name Role Phone Candace Quiñones MD Primary Care Pro vider Amna Richards DO Primary Care Provider + [phone] Reason for Visit * Reason Onset Date Comments Appointment Request 09/07/2022 Encounter Details Date Type Department Care Team ([facility] st Contact Info) Description 09/07/2022 Telephone [facility] [address] [place] [address] Candace Quiñones MD [address] [place] [address] Appointment Request Social History Tobacco Use Types [...] 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 Pt states he had a recent surgery and cannot attend. Please contact pt at [phone] Portuguese Speaker documented in this encounter Plan of Treatment Upcoming Encounters Date Type Department Care Team (Late st Contact Info) Description 08/13/2024 10:30 AM EDT Clinical Support [facility] [address] [place] [phone] Ester Chatman RN documented as of this encounter Visit Diagnoses Not on filedocumented in this encounter Additional Health Concerns Assessment Noted Time PHQ-9 Depression Total Score: 13 023 11:01 AM EDT documented as of this encounter Care Teams Sign Language Translator Relationship Specialty Start Date End Date Candace Quiñones MD [address] [place] [phone] PCP - General Internal Medicine 07/24/22 10/11/23 Amna Richards DO [address] [place] [phone] PCP - General Family Medicine 10/12/23 [facility] 05/08/24 documented as of this encounter
--- OUTSIDE RECORDS SUMMARY | 2024-07-15 16:15 | XMS_ITS | Encounter Summary ---
Author Organization [employer] Address [address] [facility] [address]t [place] [address] Care Team Providers Care Reinforcing Steel Erector Name Role Phone Susie Amna CARABALLO Primary Care Provider + [phone] Encounter Details Date Type Department Care Team (Late st Contact Info) Description 01/25/2024 Orders Only [facility] [address] [place], [place] [phone] Brendon Davidson MD [address] [place] [address] Social History Tobacco Use Types Packs/Day Years [...] Description 08/13/2024 10:30 AM EDT Clinical Support [facility] [address] [place] [address] Ester Chatman, RN documented as of this encounter Visit Diagnoses Not on filedocumented in this encounter Additional Health Concerns Assessment Noted Time PHQ-9 Depression Total Score: 11 024 1:53 PM EDT documented as of this encounter Care Teams Reinforcing Steel Erector Relationship Specialty Start Date End Date Amna Richards DO [address] [place] [address] PCP - General Family Medicine 10/12/23 [facility] 05/08/24 documented as of this encounter
--- OUTSIDE RECORDS SUMMARY | 2024-07-15 16:15 | XMS_ITS | Encounter Summary ---
Author Organization [employer] Address [address] [place] [address] 7t [place] [address] Care Team Providers Care Mica Patcher Name Role Phone Amna Richards DO Primary Care Provider + [phone] Amna Richards DO Primary Care Provider [phone] Candace Quiñones MD Primary Care Pro vider Amna Richards DO Primary Care Provider + [phone] Reason for Visit * Reason Onset Date Comments Appointment Request 07/12/2022 Encounter Details Date Type Department Care Team (Late st Contact Info) Description 07/12/2022 Telephone [facility] MEDICINE [address] [place], [place] [phone] Amna Richards DO 230 [place], [place] [phone] Appointment Request Social History Tobacco Use Types [...] month ago and seen at [facility]. Pe rpt went to [facility] ED last night after having coughing fit. Per pt states chestx-ray done and was sent home told has nothing wrong. Per pt having productive cough. Pt also havingpain in back and chest with coughing. Per pt also having wheezing. Pt was supposed to have ongoing treatment and follow up after [facility] Discharge. Pt never had HDF appt. Seen at [facility] ED last night. No meds prescribed per pt. Pt agrees to sick visit with Dr. Singer today at 2:15pm. MH active. Sent to team to obtain discharge notes for [facility] ED visit yesterday. Protocol Used: Asthma Attack [...] accepted this outcome Please contact pt at [phone] Kiswahili Speaker documented in this encounter Plan of Treatment Upcoming Encounters Date Type Department Care Team ([facility] st Contact Info) Description 08/13/2024 10:30 AM EDT Clinical Support [facility] MEDICINE [address] [place] [address] Ester Chatman, RN documented as of this encounter Visit Diagnoses Not on filedocumented in this encounter Additional Health Concerns Assessment Noted Time PHQ-9 Depression Total Score: 13 023 11:01 AM EDT documented as of this encounter Care Teams Mica Patcher Relationship Specialty Start Date End Date Amna Richards DO [address] [place] [address] PCP - General Family Medicine 03/19/18 07/20/22 Amna Richards DO [address] [place] [address] PCP - General Family Medicine 07/21/22 07/23/22 Candace Quiñones MD [address] [place] [address] PCP - General Internal Medicine 07/24/22 10/11/23 Amna Richards DO [address] [place] [address] PCP - General Family Medicine 10/12/23 [facility] 05/08/24 documented as of this encounter
--- OUTSIDE RECORDS SUMMARY | 2024-07-15 16:15 | XMS_ITS | Encounter Summary ---
Author Organization [email or web address] Address [address] [facility] 7t [place] [address] Care Team Providers Care Forester Aide Name Role Phone Candace Quiñones MD Primary Care Pro vider Amna Richards DO Primary Care Provider + [phone] Reason for Visit * Reason Onset Date Comments office notes and PFT 06/04/2023 Encounter Details Date Type Department Care Team (Late st Contact Info) Description 06/04/2023 Telephone [facility] MEDICINE 230 [place] [address] Candace Quiñones MD 230 [place], [place] [phone] office notes and PFT Social History Tobacco [...] Description 08/13/2024 10:30 AM EDT Clinical Support [facility] MEDICINE [address] [place] [address] Ester Chatman RN documented as of this encounter Visit Diagnoses Not on filedocumented in this encounter Additional Health Concerns Assessment Noted Time PHQ-9 Depression Total Score: 11 023 3:01 PM EDT documented as of this encounter Care Teams Forester Aide Relationship Specialty Start Date End Date Candace Quiñones MD [address] [place] [address] PCP - General Internal Medicine 07/24/22 10/11/23 Amna Richards DO [address] [place] [address] PCP - General Family Medicine 10/12/23 [facility] 05/08/24 documented as of this encounter
--- OUTSIDE RECORDS SUMMARY | 2024-07-15 16:15 | XMS_ITS | Encounter Summary ---
Author Organization [employer] Address 75 [facility] 7t [place] [address] Care Team Providers Care Control And Recovery Special Tactics Name Role Phone Amna Richards DO Primary Care Provider + [phone] Encounter Details Date Type Department Care Team ([facility] st Contact Info) Description 05/01/2024 Telephone [facility] MEDICINE 230 [place] [address] Amna Richards DO 230 [place], [place] [phone] Social History Tobacco Use Types Packs/Day Years [...] 10:30 AM EDT Clinical Support [facility] MEDICINE 230 [place] [address] Ester Chatman, RN documented as of this encounter Visit Diagnoses Not on filedocumented in this encounter Additional Health Concerns Assessment Noted Time PHQ-9 Depression Total Score: 11 024 1:53 PM EDT documented as of this encounter Care Teams Control And Recovery Special Tactics Relationship Specialty Start Date End Date Amna Richards DO 230 [place] [address] PCP - General Family Medicine 10/12/23 [facility] 05/08/24 documented as of this encounter
--- OUTSIDE RECORDS SUMMARY | 2024-07-15 16:15 | XMS_ITS | Encounter Summary ---
Author Organization [employer] Address 75 [facility] 7t [place] [address] Care Team Providers Care Fruit Culler Name Role Phone Amna Richards DO Primary Care Provider Reason for Visit * Reason Onset Date Comments Reschedule [employer] RV 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 01/15/2402/2024 Encounter Details Date Type Department Care Team ([facility] st Contact Info) Description 01/29/2024 Telephone [facility] MEDICINE 230 [place] [address] Amna Richards DO 230 [place], [place] [phone] Reschedule [employer] RV 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 01/15/24 Social History [...] the past 12 months, has t he [employer], gas, oil or water indico threatened to shut off services in your [...] Description 08/13/2024 10:30 AM EDT Clinical Support [facility] MEDICINE [address] [place] [address] Ester Chatman, RN documented as of this encounter Visit Diagnoses Not on filedocumented in this encounter Additional Health Concerns Assessment Noted Time PHQ-9 Depression Total Score: 11 024 1:53 PM EDT documented as of this encounter Care Teams Fruit Culler Relationship Specialty Start Date End Date Amna Richards DO [address] [place] [address] PCP - General Family Medicine 10/12/23 [facility] 05/08/24 documented as of this encounter
--- OUTSIDE RECORDS SUMMARY | 2024-07-15 16:15 | XMS_ITS | Encounter Summary ---
Author Organization [employer] Address [address] [facility] 7t [place] [address] Care Team Providers Care Medical Cost Consultant Name Role Phone Susie Amna Primary Care Provider + [phone] Reason for Visit * Reason Comments Med Refill Encounter Details Date Type Department Care Team ([facility] st Contact Info) Description 04/20/2024 Refill [facility] 230 [place], [place] [phone] Bong Sahni MD 230 [place], [place] [phone] Bronchitis Social History Tobacco Use Types Packs/Day [...] Description 08/13/2024 10:30 AM EDT Clinical Support [facility] MEDICINE 230 [place] [address] Ester Chatman, JACOB documented as of this encounter Visit Diagnoses Diagnosis Bronchitis Bronchitis, not specified as acute or chronic documented in this encounter Additional Health Concerns Assessment Noted Time PHQ-9 Depression Total Score: 11 024 1:53 PM EDT documented as of this encounter Care Teams Medical Cost Consultant Relationship Specialty Start Date End Date Amna Richards DO 230 [place] [address] PCP - General Family Medicine 10/12/23 [facility] 05/08/24 documented as of this encounter
--- OUTSIDE RECORDS SUMMARY | 2024-07-15 16:16 | XMS_ITS | Encounter Summary ---
Author Organization [employer] Address [address] [place] [address] 7t [place] [address] Care Team Providers Care Black Top Raker Name Role Phone Candace Quiñones MD Primary Care Pro vider Amna Richards DO Primary Care Provider + [phone] Reason for Visit * Reason Onset Date Comments Appointment Request 12/21/2022 Encounter Details Date Type Department Care Team ([facility] st Contact Info) Description 12/21/2022 Telephone [facility] MEDICINE 230 [place] [address] Candace Quiñones MD 230 [place] [address] Appointment Request Social History Tobacco Use Types [...] EDT Tc from patient requesting to r/s [facility] appt from 12/21/22. Details:[facility] [place]; utox Tramadol lab conf documented in this encounter Plan of Treatment Upcoming Encounters Date Type Department Care Team (Late st Contact Info) Description 08/13/2024 10:30 AM EDT Clinical Support [facility] MEDICINE [address] [place] [address] Ester Chatman RN documented as of this encounter Visit Diagnoses Not on filedocumented in this encounter Additional Health Concerns Assessment Noted Time PHQ-9 Depression Total Score: 11 10/23/ 023 3:01 PM EDT documented as of this encounter Care Teams Black Top Raker Relationship Specialty Start Date End Date Candace Quiñones MD [address] [place] [address] PCP - General Internal Medicine 07/24/22 10/11/23 Amna Richards DO [address] [place] [address] PCP - General Family Medicine 10/12/23 [facility] 05/08/24 documented as of this encounter
--- OUTSIDE RECORDS SUMMARY | 2024-07-15 16:16 | XMS_ITS | Encounter Summary ---
Author Organization [employer] Address [address] [place] [address] 7t [place] [address] Care Team Providers Care Hydroelectric Plant Electrician Name Role Phone Candace Quiñones MD Primary Care Pro vider Amna Richards DO Primary Care Provider + [phone] Reason for Visit * Reason Onset Date Comments Medication Question 11/23/2022 Encounter Details Date Type Department Care Team ([facility] st Contact Info) Description 11/23/2022 Telephone [facility] MEDICINE 230 [place] [address] Candace Quiñones MD 230 [place] [address] Medication Question Social History Tobacco Use Types [...] Description 08/13/2024 10:30 AM EDT Clinical Support [facility] MEDICINE [address] [place] [address] Ester Chatman, RN documented as of this encounter Visit Diagnoses Not on filedocumented in this encounter Additional Health Concerns Assessment Noted Time PHQ-9 Depression Total Score: 11 023 3:01 PM EDT documented as of this encounter Care Teams Hydroelectric Plant Electrician Relationship Specialty Start Date End Date Candace Quiñones MD [address] [place] [address] PCP - General Internal Medicine 07/24/22 10/11/23 Amna Richards DO [address] [place] [address] PCP - General Family Medicine 10/12/23 [facility] 05/08/24 documented as of this encounter
--- OUTSIDE RECORDS SUMMARY | 2024-07-15 16:16 | XMS_ITS ---
Author Organization [employer] Address 75 [facility] 7t [place] [address] Care Team Providers Care Hand Paster Name Role Phone Amna Richards DO Primary Care Provider CHW Complex Status:Outreach In Progress (Enrolling) Start date:06/16/2024 Enrollment reason:ADT Feed Overview ADT- Pt admitted to [facility] on 06/16/24. Case Team Name Relationship Phone Ginette Banda (Responsible Staff) Continued Care and Services Coordination
--- OUTSIDE RECORDS SUMMARY | 2024-07-15 16:16 | XMS_ITS | Encounter Summary ---
Author Organization [employer] Address 75 [facility] 7t [place] [address] Care Team Providers Care Weather Clerk Name Role Phone Candace Quiñones MD Primary Care Pro vider Amna Richards DO Primary Care Provider + [phone] Encounter Details Date Type Department Care Team (Late st Contact Info) Description 09/13/2023 Community Care Management [facility] MEDICINE 230 [place] [address] Candace Quiñones MD 230 [place], [place] [phone] Social History Tobacco Use Types Packs/Day Years [...] Description 08/13/2024 10:30 AM EDT Clinical Support [facility] MEDICINE [address] [place] [address] Ester Chatman RN documented as of this encounter Visit Diagnoses Not on filedocumented in this encounter Additional Health Concerns Assessment Noted Time PHQ-9 Depression Total Score: 11 024 1:53 PM EDT documented as of this encounter Care Teams Weather Clerk Relationship Specialty Start Date End Date Candace Quiñones MD [address] [place] [address] PCP - General Internal Medicine 07/24/22 10/11/23 Amna Richards DO [address] [place] [address] PCP - General Family Medicine 10/12/23 [facility] 05/08/24 documented as of this encounter
--- OUTSIDE RECORDS SUMMARY | 2024-07-15 16:16 | XMS_ITS | Encounter Summary ---
Author Organization [employer] Address 75 [facility] 7t [place] [address] Care Team Providers Care Evaluation Specialist Name Role Phone Amna Richards DO Primary Care Provider + [phone] Reason for Visit * Reason Comments Care Coordination Encounter Details Date Type Department Care Team ([facility] st Contact Info) Description 07/10/2024 Patient Outreach [facility] MEDICINE 230 [place] [address] Amna Richards DO 230 [place] [address] Care Coordination Social History Tobacco Use Types Packs/Day Years [...] encounter Progress Notes * Ginette Banda - 07/10/2024 2:54 PM EDT CHW Ginette Banda placed outbound call to patient for follow up call on SDOH needs. No answer at thistime. LVM introducing herself from [facility] CM Department. Requested call back. CHW reinforced direct contact information or for any additional questionsor concerns and extended clinic hours on Mondays and Wednesdays, and Walk-In Urgent Care Located inLobby of [facility]. Patient provided with after-hours line for [facility], , which offer night time triage service and option to transfer to communications assistant provider if needed. CHW will attempt another followup call within 10 days. documented in this encounter Plan of Treatment Upcoming Encounters Date Type Department Care Team ([facility] st Contact Info) Description 08/13/2024 10:30 AM EDT Clinical Support [facility] MEDICINE [address] [place] [address] Lurdes, Ester, RN documented as of this encounter Visit Diagnoses Not on filedocumented in this encounter Additional Health Concerns Assessment Noted Time PHQ-9 Depression Total Score: 11 09/02/ 024 1:53 PM EDT documented as of this encounter Care Teams Evaluation Specialist Relationship Specialty Start Date End Date Amna Richards DO 230 [place] [address] PCP - General Family Medicine 10/12/23 [facility] 05/08/24 documented as of this encounter
--- OUTSIDE RECORDS SUMMARY | 2024-07-15 16:16 | XMS_ITS | Encounter Summary ---
Author Organization [employer] Address 75 [facility] 7t [place] [address] Care Team Providers Care Buckle Assembler Name Role Phone Amna Richards DO Primary Care Provider + [phone] Reason for Visit * Reason Onset Date Comments Appointment Request 06/30/2024 Encounter Details Date Type Department Care Team ([facility] st Contact Info) Description 06/30/2024 Telephone [facility] MEDICINE 230 [place], [place] [phone] Amna Richards DO 230 [place] [address] Appointment Request Social History Tobacco Use Types [...] encounter Miscellaneous Notes * Telephone Encounter - Carlos Erazo - 06/30/2024 1:13 PM EDT Tc from pt had to cancel todays PATIENT ACCOUNTS SPECIALIST visit . States isnt feeling well and would like to reschedule for another date and time documented in this encounter Plan of Treatment Upcoming Encounters Date Type Department Care Team (Late st Contact Info) Description 08/13/2024 10:30 AM EDT Clinical Support [facility] MEDICINE 230 [place] [address] Ester Chatman RN documented as of this encounter Visit Diagnoses Not on filedocumented in this encounter Additional Health Concerns Assessment Noted Time PHQ-9 Depression Total Score: 11 024 1:53 PM EDT documented as of this encounter Care Teams Buckle Assembler Relationship Specialty Start Date End Date Amna Richards DO 230 [place] [address] PCP - General Family Medicine 10/12/23 [facility] 05/08/24 documented as of this encounter
--- OUTSIDE RECORDS SUMMARY | 2024-07-15 16:16 | XMS_ITS | Encounter Summary ---
Author Organization [employer] Address 75 [facility] 7t [place] [address] Care Team Providers Care Film Coater Name Role Phone Amna Richards DO Primary Care Provider + [phone] Reason for Visit * Reason Onset Date Comments Med Refill 07/14/2024 Encounter Details Date Type Department Care Team (Late st Contact Info) Description 07/14/2024 Refill [facility] MEDICINE 230 [place], [place] [phone] Amna Richards DO 230 [place], [place] [phone] Chronic pain of right hand Social History Tobacco Use Types Packs/Day Years [...] encounter Miscellaneous Notes * Telephone Encounter - Riri Francois RN - 07/14/2024 2:32 PM EDT Pt. Not currently on oxycodone. [facility] reviewed, pt. Last picked up 28 day supply tramadol 06/05/24. Rx due and pended * Telephone Encounter - Trinidad Lira - 07/14/2024 11:32 AM EDT Tc from pt requesting medication oxyCODONE (Roxicodone) 10 MG immediate release tablet to sent to his preferred pharmacy [facility]/pharmacy #[id number] - [place] - [address] documented in this encounter Plan of Treatment Upcoming Encounters Date Type Department Care Team (Late st Contact Info) Description 08/13/2024 10:30 AM EDT Clinical Support [facility] MEDICINE 230 [place] [address] Ester Chatman, RN documented as of this encounter Visit Diagnoses Diagnosis Chronic pain of right hand documented in this encounter Additional Health Concerns Assessment Noted Time PHQ-9 Depression Total Score: 11 09/02/ 024 1:53 PM EDT documented as of this encounter Care Teams Film Coater Relationship Specialty Start Date End Date Amna Richards DO 230 [place] [address] PCP - General Family Medicine 10/12/23 [facility] 05/08/24 documented as of this encounter
--- OUTSIDE RECORDS SUMMARY | 2024-07-15 16:16 | XMS_ITS | Encounter Summary ---
Author Organization [employer] Address 75 [facility] 7t [place] [address] Care Team Providers Care Foundation Coordinator Name Role Phone Amna Richards DO Primary Care Provider + [phone] Amna Richards DO Primary Care Provider [phone] Candace Quiñones MD Primary Care Pro vider Amna Richards DO Primary Care Provider + [phone] Reason for Visit * Reason Onset Date Comments Med Refill 05/31/2022 Encounter Details Date Type Department Care Team (Late st Contact Info) Description 05/31/2022 Telephone [facility] MEDICINE 230 [place], [place] [phone] Amna Richards DO 230 [place], [place] [phone] Med Refill Social History Tobacco Use Types [...] for HDF outreach. Patient was admitted to [facility] on 06/08/2022 and was discharged [...] Wednesdays, and Walk-In Urgent Care Located in [facility] of [facility]. Patient provided with after-hours line for [facility], , which offer night time triage service and option to transfer to identity management consultant provider if needed. CC will request Discharge [...] Nebulizer medication. Albuterol Sulfate Please sent to [facility] [address] [facility] documented in this encounter Plan of Treatment Upcoming Encounters Date Type Department Care Team ([facility] st Contact Info) Description 08/13/2024 10:30 AM EDT Clinical Support [facility] MEDICINE 230 [place] [address] Lurdes, Ester, RN documented as of this encounter Visit Diagnoses Not on filedocumented in this encounter Additional Health Concerns Assessment Noted Time PHQ-9 Depression Total Score: 11 023 12:04 PM EST documented as of this encounter Care Teams Foundation Coordinator Relationship Specialty Start Date End Date Amna Richards DO 230 [place] [address] PCP - General Family Medicine 03/19/18 07/20/22 Amna Richards DO 230 [place] [address] PCP - General Family Medicine 07/21/22 07/23/22 Candace Quiñones MD 230 [place] [address] PCP - General Internal Medicine 07/24/22 10/11/23 Amna Richards DO 230 [place], [place] [phone] PCP - General Family Medicine 10/12/23 [facility] 05/08/24 documented as of this encounter
--- OUTSIDE RECORDS SUMMARY | 2024-07-15 16:16 | XMS_ITS | Encounter Summary ---
Author Organization [employer] Address 75 [facility] 7t [place] [address] Care Team Providers Care Dobie Worker Name Role Phone Amna Richards DO Primary Care Provider + [phone] Reason for Visit * Reason Onset Date Comments Hospital Follow-up 06/23/2024 Encounter Details Date Type Department Care Team ([facility] st Contact Info) Description 06/23/2024 Telephone [facility] MEDICINE 230 [place], [place] [phone] Amna Richards DO 230 [place], [place] [phone] Hospital Follow-up Social History Tobacco Use Types Packs/Day Years [...] encounter Miscellaneous Notes * Telephone Encounter - Trinidad Lira - 06/23/2024 10:36 AM EDT Tc from pt requesting a HDF appt. Hospital: [facility] Date of admission: 06/16/2024 Discharge date: 06/18/2024 Diagnosed: COPD , Influenza A *Send message to [place] Clinical Care Coordinators documented in this encounter Plan of Treatment Upcoming Encounters Date Type Department Care Team (Late st Contact Info) Description 08/13/2024 10:30 AM EDT Clinical Support [facility] MEDICINE 230 [place] [address] Ester Chatman RN documented as of this encounter Visit Diagnoses Not on filedocumented in this encounter Additional Health Concerns Assessment Noted Time PHQ-9 Depression Total Score: 11 024 1:53 PM EDT documented as of this encounter Care Teams Dobie Worker Relationship Specialty Start Date End Date Amna Richards DO 230 [place] [address] PCP - General Family Medicine 10/12/23 [facility] 05/08/24 documented as of this encounter
--- OUTSIDE RECORDS SUMMARY | 2024-07-15 16:16 | XMS_ITS ---
Author Organization [employer] Address 75 [facility] 7t [place] [address] Care Team Providers Care Loan Representative Name Role Phone Amna Richards DO Primary Care Provider [phone] CM Complex Status:Outreach In Progress (Enrolling) Start date:06/16/2024 Enrollment reason:ADT Feed Overview ADT- Pt admitted to [facility] 06/16/24. Case Team Name Relationship Phone Aldo Valle RN Registered Nurse(Responsible St aff) Continued Care and Services Coordination
--- OUTSIDE RECORDS SUMMARY | 2024-07-15 16:16 | XMS_ITS | Encounter Summary ---
Author Organization [employer] Address [address] [facility] 7t [place] [address] Care Team Providers Care Beading Machine Operator Name Role Phone Amna Richards DO Primary Care Provider + [phone] Reason for Visit * Reason Comments Med Refill Encounter Details Date Type Department Care Team ([facility] st Contact Info) Description 07/13/2024 Refill [facility] MED[facility]INE [address] [place], [place] [phone] Amna Richards DO [address] [place], [place] [phone] Social History Tobacco Use Types Packs/Day Years [...] Description 08/13/2024 10:30 AM EDT Clinical Support [facility] [address] [place] [address] Ester Chatman RN documented as of this encounter Visit Diagnoses Not on filedocumented in this encounter Additional Health Concerns Assessment Noted Time PHQ-9 Depression Total Score: 11 024 1:53 PM EDT documented as of this encounter Care Teams Beading Machine Operator Relationship Specialty Start Date End Date Amna Richards DO [address] [place] [address] PCP - General Family Medicine 10/12/23 [facility] 05/08/24 documented as of this encounter
--- OUTSIDE RECORDS SUMMARY | 2024-07-15 16:16 | XMS_ITS | Encounter Summary ---
Author Organization [employer] Address [address] [facility] 7t [place] [address] Care Team Providers Care Folded Cloth Taper Name Role Phone Amna Richards DO Primary Care Provider + [phone] Reason for Visit * Reason Onset Date Comments Medication Question 06/30/2024 Encounter Details Date Type Department Care Team ([facility] st Contact Info) Description 06/30/[address] [facility] MED[facility] [address] [place] [address] Amna Richards DO [address] [place] [address] Medication Question Social History Tobacco Use Types [...] encounter Miscellaneous Notes * Telephone Encounter - Milton Underwood RN - 06/30/2024 1:35 PM EDT TC placed to patient [phone] using [facility] #ID [id number] regarding below messages. Patient informed RNafter he finished his prescribed medications from his Hospital admission on 06/18/24. ( Doxycycline, Tamiflu and Prednisone) He continues to be SOB with exertion x 3 days. Pt speaking in full sentences. Pt reported he currently not smoking cigarettes he is using nicotine gum. RN advised patient to goto the ED for further evaluation. Pt reported he will go tomorrow if he needs to. RN advised patient on the importance of seeking further evaluation for the SOB. Pt again said he will go tomorrow. Ptalso reported he missed his WHITING MACHINE OPERATOR appt on 06/30/24 due to the SOB with exertion. RN reminded patient of his upcoming appt on 07/03/24 at 2 pm with his PCP. RN rescheduled patient WHITING MACHINE OPERATOR appt for 07/08/24 at 2pm. Pt verbalized understanding. PT to F/U PRN. * Telephone Encounter - Carlos Erazo - 06/30/2024 1:20 PM EDT TC from pt would like a call back to discuss medications he was prescribed by Hospital . Pt aware has HDF 07/03 . documented in this encounter Plan of Treatment Upcoming Encounters Date Type Department Care Team (Late st Contact Info) Description 08/13/2024 10:30 AM EDT Clinical Support [facility]INE [address] [place] [address] Ester Chatman RN documented as of this encounter Visit Diagnoses Not on filedocumented in this encounter Additional Health Concerns Assessment Noted Time PHQ-9 Depression Total Score: 11 09/02/ 024 1:53 PM EDT documented as of this encounter Care Teams Folded Cloth Taper Relationship Specialty Start Date End Date Amna Richards DO [address] [place] [address] PCP - General Family Medicine 10/12/23 [facility] 05/08/24 documented as of this encounter
--- OUTSIDE RECORDS SUMMARY | 2024-07-15 16:16 | XMS_ITS | Encounter Summary ---
Author Organization [employer] Address [address] [place] [address] 7t [place] [address] Care Team Providers Care Director Of Software Engineering Name Role Phone Amna Richards DO Primary Care Provider + [phone] Amna Richards DO Primary Care Provider [phone] Candace Quiñones MD Primary Care Pro vider Amna Richards DO Primary Care Provider + [phone] Reason for Visit * Reason Onset Date Comments Med Refill 06/15/2022 Encounter Details Date Type Department Care Team (Late st Contact Info) Description 06/15/2022 Telephone [facility] MEDICINE [address] [place], [place] [phone] Amna Richards DO [address] [place], [place] [phone] Med Refill Social History Tobacco Use Types [...] States if it can be sent to [facility] pharmacy due to cvc not having them in stock at this time . Pt also informed if tablets can be the [place] not [place] . documented in this encounter Plan of Treatment Upcoming Encounters Date Type Department Care Team (Late st Contact Info) Description 08/13/2024 10:30 AM EDT Clinical Support [facility] MED[facility]INE [address] [place] [phone] Ester Chatman RN documented as of this encounter Visit Diagnoses Not on filedocumented in this encounter Additional Health Concerns Assessment Noted Time PHQ-9 Depression Total Score: 11 023 12:04 PM EST documented as of this encounter Care Teams Director Of Software Engineering Relationship Specialty Start Date End Date Amna Richards DO [address] [place] [phone] PCP - General Family Medicine 03/19/18 07/20/22 Amna Richards DO [address] [place] [phone] PCP - General Family Medicine 07/21/22 07/23/22 Candace Quiñones MD [address] [place] [address] PCP - General Internal Medicine 07/24/22 10/11/23 Amna Richards DO [address] [place] [address] PCP - General Family Medicine 10/12/23 [facility] 05/08/24 documented as of this encounter
--- OUTSIDE RECORDS SUMMARY | 2024-07-15 16:16 | XMS_ITS | Encounter Summary ---
Author Organization [employer] Address [address] [place] [address] 7t [place] [address] Care Team Providers Care Segmental Paver Installer Name Role Phone Candace Quiñones MD Primary Care Pro vider Amna Richards DO Primary Care Provider + [phone] Reason for Visit * Reason Onset Date Comments Appointment Request 11/21/2022 Encounter Details Date Type Department Care Team ([facility] st Contact Info) Description 11/21/2022 Telephone [facility]INE [address] [place] [address] Cadnace Quiñones MD [address] [place] [address] Appointment Request Social History Tobacco Use Types [...] AM EDT Clinical Support [facility] [address] [place] [phone] Ester Chatman, JACOB documented as of this encounter Visit Diagnoses Not on filedocumented in this encounter Additional Health Concerns Assessment Noted Time PHQ-9 Depression Total Score: 11 023 3:01 PM EDT documented as of this encounter Care Teams Segmental Paver Installer Relationship Specialty Start Date End Date Candace Quiñones MD [address] [place] [address] PCP - General Internal Medicine 07/24/22 10/11/23 Amna Richards DO [address] [place] [phone] PCP - General Family Medicine 10/12/23 [facility] 05/08/24 documented as of this encounter
--- OUTSIDE RECORDS SUMMARY | 2024-07-15 16:16 | XMS_ITS | Encounter Summary ---
Author Organization [employer] Address [address] [place] [address] 7t [place] [address] Care Team Providers Care Philosophy Specialist Name Role Phone Candace Quiñones MD Primary Care Pro vider Amna Richards DO Primary Care Provider + [phone] Reason for Visit * Reason Comments Med Change Request Encounter Details Date Type Department Care Team ([facility] st Contact Info) Description 08/21/2022 Refill [facility] [address] [place] [address] Candace Quiñones MD [address] [place] [address] Social History Tobacco Use Types Packs/Day Years [...] AM EDT Clinical Support [facility] [address] [place] [address] Ester Chatman, RN documented as of this encounter Visit Diagnoses Not on filedocumented in this encounter Additional Health Concerns Assessment Noted Time PHQ-9 Depression Total Score: 13 023 11:01 AM EDT documented as of this encounter Care Teams Philosophy Specialist Relationship Specialty Start Date End Date Candace Quiñones MD [address] [place] [address] PCP - General Internal Medicine 07/24/22 10/11/23 Amna Richards DO [address] [place] [address] PCP - General Family Medicine 10/12/23 [facility] 05/08/24 documented as of this encounter
--- OUTSIDE RECORDS SUMMARY | 2024-07-15 16:16 | XMS_ITS | Encounter Summary ---
Author Organization [employer] Address [address] [place] [address] 7t [place] [address] Care Team Providers Care Sulfonator Operator Name Role Phone Candace Quiñones MD Primary Care Pro vider Amna Richards DO Primary Care Provider + [phone] Reason for Visit * Reason Comments Med Refill Encounter Details Date Type Department Care Team (Late st Contact Info) Description 11/17/2022 Refill [facility] [address] [place] [address] Candace Quiñones MD [address] [place] [address] Fracture of vertebra due to osteoporosis, sequela [...] Description 08/13/2024 10:30 AM EDT Clinical Support [facility] [address] [place] [address] Ester Chatman, RN documented as of this encounter Visit Diagnoses Diagnosis Fracture of vertebra due to osteoporosis, sequela documented in this encounter Additional Health Concerns Assessment Noted Time PHQ-9 Depression Total Score: 11 023 3:01 PM EDT documented as of this encounter Care Teams Sulfonator Operator Relationship Specialty Start Date End Date Candace Quiñones MD [address] [place] [phone] PCP - General Internal Medicine 07/24/22 10/11/23 Amna Richards DO [address] [place] [address] PCP - General Family Medicine 10/12/23 [facility] 05/08/24 documented as of this encounter
== END 2024-07-15 14:28 | disposition home or self-care (01) ==
LOC: HO.HCS 14:03
PROVIDERS: PCP Family Medicine; Visit Provider Internal Medicine
DX: R07.2 Precordial pain (principal); I25.10 Atherosclerotic heart disease of native coronary artery without angina pectoris
CPT/HCPCS: 99214

== ENCOUNTER → 2024-07-15 14:02 | Outpatient (BNVA) | payer MEDICAID, SELFPAY | PROVIDERS: PCP Family Medicine; Visit Provider Internal Medicine | DX: I25.10 Atherosclerotic heart disease of native coronary artery without angina pectoris (principal); R07.2 Precordial pain | CPT/HCPCS: 99212 ==

== ENCOUNTER 2024-08-12 13:52 | Outpatient (AMB) | payer MEDICAID, SELFPAY ==
--- NOTE | 2024-08-12 13:55 | A.OFFVIS_ITS ---
Vital Signs 08/12/24 13:58 Height 5 ft 8 in Weight 149 lb 14.629 oz BMI 22.8 BP 134/84 Blood Pressure Location Lt brachial Position Sitting Pulse 82 Pulse Oximetry (%) 95 Oxygen Delivery Method Room Air Intake Visit Reasons: f/u pt wants to see provider before r/s colo Intake Note: Aldo presents in the office as a follow up to discuss having a colonoscopy. CC: He states that he is not having any concerns other than the RUQ pains at times. Urgent Care Physician Required: No Allergies ibuprofen [From Motrin] Allergy (Intermediate, Verified 08/12/24 13:59) Rash HPI HPI f/u pt wants to see provider before r/s colo: Details: Assessment & Plan (1) Tubular adenoma of colon: Onset Date: ~2019 Comment: 2022= 2 polyps repeat in 5 years: 2020=multiple large polyps and poor prep, was to be repeated in 6-12 months but pt keeps cancelling. Code(s): D12.6 - Benign neoplasm of colon, unspecified (2) GERD (gastroesophageal reflux disease): Code(s): K21.9 - Gastro-esophageal reflux disease without esophagitis (3) Chronic idiopathic constipation: Code(s): K59.04 - Chronic idiopathic constipation Plan [place] #Alma Live We review the prep and procedure, and it turns out he was eating the day of the prep and this is the reason he has (likely) failed to clear. I EMPHASIZE no solid foods, just clear liquids 24 hours before the procedure. He first says he had breakfast the prep day but it was at 7am, and then says he was eating throughout the day but nothing after the prep. Again I emphasize the instructions and we have him repeat verbalize this. Despite taking Linzess 290 in 2 bisacodyl in the evening he still not moving his bowels consistently and still has quite a bit of bloating. This is limiting his appetite. He sometimes will go 2 days without a bowel movement. At this point were going to have him take 3 bisacodyl at night, continue his Linzess and add Colace twice a day to see if we can get better affect. Return office visit in 6 months but also after the colonoscopy Orders: Orders Colonoscopy - GI Use Only 03/21/23 D12.6 - Benign neoplasm of colon, unspecified Medications: New docusate sodium (Colace) 100 mg PO .bid with food 60 caps 6RF 30 days Changed From bisacodyl 10 mg (2 x 5 mg) PO BEDTIME 30 days 60 tabs 6RF K59.04 - Chronic idiopathic constipation To bisacodyl (Dulcolax (bisacodyl)) 15 mg (3 x 5 mg) PO BEDTIME 120 tabs 6RF 30 days K59.04 - Chronic idiopathic constipation Refilled famotidine 40 mg PO BEDTIME 90 tabs 1RF linaclotide (Linzess) 290 mcg PO QAM 30 caps 6RF simethicone after meals 180 mg PO QID 120 caps 3RF 30 days peg 3350-electrolytes 236-22.74-6.74 -5.86 gram (Golytely) until fecal effluent is clear; do not exceed a total volume of 2,000 mL 240 mL PO Q10M 4,000 mL 0RF 1 day Z12.11 - Encounter for screening for malignant neoplasm of colon bisacodyl (Dulcolax (bisacodyl)) 10 mg (2 x 5 mg) PO BEDTIME 60 tabs 6RF 30 days K59.04 - Chronic idiopathic constipation [id number]-qbflwilz-[id number] 24,000-76,000 -120,000 unit (Creon) administer with meals and/or snacks 1 cap PO QID 120 caps 6RF COLONOSCOPY Postponing due to acute on chronic respiratory failure hospitalized 06/2024 waiting for resolution/approval from pulmonology before proceeding. BIOPSY TODAYS VISIT Guyanese #Rossana Jain He is taking Linzess 290 in 2 bisacody, colace, creon, and famotidine. Not getting Linzess. ? This might be related to a PA. Also c/o rash on right knee with swelling, he asks if this is the same as his balanitis (NO!!) will get xr of knee and give betamethasone cream. Also complaining of petechiae that occur on the arms and ankles this likely is related to his anticoagulation therapy but also could have been related to his viral pneumonia. He was reassured and told it only if they are enlarging or swelling or they problematic. Was hospitalized severe resp infection in June here and at [facility], with this and acute and suspected chronic respiratory failure will postpone colonoscopy until this is resolved - having right side CP my lungs he will be presenting to the ER today to check on this. ROV 4 weeks. [facility] Medical History (Updated 08/12/24 @ 14:58 by DELROY Ramirez) Cellulitis and abscess of upper extremity Abscess Penile discharge Balanitis Pneumonia Atelectasis Viral syndrome History of COVID-19 Leukocytosis Hyperlipidemia Personal history of nicotine dependence Back pain Arthritis Anxiety and depression Asthma History of kidney stones Chronic abdominal pain Tubular adenoma of colon (~2019) Asthma-COPD overlap syndrome Osteoporosis (~2001) Irritable bowel syndrome GERD (gastroesophageal reflux disease) COPD (chronic obstructive pulmonary disease) HTN (hypertension) Surgical History History of bilateral hip replacements History of colonoscopy with polypectomy (~2020) History of colonoscopy (~2005) History of surgery on right wrist (~2014) History of hip surgery (~2001) S/P extracorporeal shock wave therapy (~2013) History of hydrocelectomy Shoulder symptoms with history of shoulder arthroplasty Family History Father No problems noted. Mother No problems noted. Son No problems noted. Daughter No problems noted. Social History Household Members: None Household Members Other:: lives alone Housing: Apartment Do you presently have visiting nurse or other home services: Yes ([facility] for wound care since [facility] d/c 2 wks ago) Unable to assess alcohol history related to: Unknown Alcohol intake: unknown Comment: patient refusing bed alarm and non skid socks Patient Tobacco Use Status: Former Tobacco user Tobacco use type: Cigarette Cigarette Packs Per Day: 0.5 Cigarettes Per Day: 7 Years Smoked: (onset 14yo, 1/2-3/4ppd x 37yrs, 23pyh) Second Hand Smoke Exposure: No Advance Directives Date on File: 05/30/21 service: No Current occupational status: disabled Current occupation: rt handed Review of Systems Const Denies fatigue, Denies fever(s), Denies night sweats, Denies poor appetite and Denies weight loss ENT Reports Normal hearing present, Denies dental pain, Denies dysphagia, Denies hearing loss, Denies mouth pain, Denies odynophagia, Denies throat swelling, Denies tongue swelling and Reports other (Dentition adequate) Card Reports chest pain, Reports chest pain at rest and Reports dyspnea on exertion Resp Reports pain on inspiration and Reports dyspnea on exertion GI Details: Denies abdominal pain, Denies melena, Denies bloating, Denies hematochezia, Reports constipation, Denies GI cramping, Denies dysphagia, Denies excessive flatus, Denies early satiety, Reports heartburn, Denies diarrhea, Denies nausea, Denies odynophagia, Denies vomiting and Denies hematemesis Musc Reports arthralgias Skin/Breast Denies pruritus, Denies lesions, Reports rash and Denies jaundice Neuro Reports Normal hearing present and Denies Abnormal speech present Endo Denies fatigue Aller/Immun Denies throat swelling and Denies tongue swelling Physical Exam Vital Signs: Last Vital Signs Pulse 82 08/12/24 13:58 BP 134/84 08/12/24 13:58 Pulse Ox 95 08/12/24 13:58 Oxygen Delivery Method Room Air 08/12/24 13:58 BMI result Body Mass Index 22.8 Const General: cooperative, no acute distress, well developed and well groomed Nutritional Appearance: average body habitus and well nourished Orientation/consciousness: oriented to person, oriented to place and oriented to time Limitations: No language barrier HEENT Head: Yes normocephalic and Yes atraumatic Eyes General: appearance normal, both eyes and all related structures Pupils: Equal, round and reactive pupils present Neck Neck: Yes normal visual inspection and Yes no lymphadenopathy Thyroid: Thyroid normal Resp Effort & Inspection: normal respiratory effort and able to speak in complete sentences Auscultation: wheezes inspiratory wheezes and upper bilaterally and diminished lung sounds Cardio Rate: regular rate Rhythm: regular rhythm Heart sounds: Normal, physiologic split S2 sound present Peripheral pulses: radial pulses present and posterior tibial pulses present GI Inspection: No distended and No Abdominal panniculus present Palpation (GI): Soft to palpation, nontender, no guarding, not rigid and No hepatosplenomegaly present Percussion: Yes normal to percussion Auscultation: normal bowel sounds Rectal Exam - Male: Yes deferred Skin Other: Generalized redness with dry skin of the right knee no macules pustules or raised areas no severe induration General skin exam: skin not dry, no jaundice, petechiae (Small and scattered on upper arm), No spider nevi and no striae Rashes: rashes noted (Mild on right knee maybe eczema versus dry skin) Nails: normal Neuro General: oriented to person, oriented to place and oriented to time Cranial nerves: Yes Equal, round and reactive pupils present and Yes Normal hearing present Speech: No Abnormal speech present Extrem General: No clubbing, No cyanosis and Yes edema (Medial prepatellar area) Right lower extremity: knee Details: abnormal to inspection Details: erythematous Psych Appearance: grossly normal and well kempt Mental Status: mental status grossly normal Speech and movement: Normal speech and movement present Affect: normal affect Attitude: cooperative Thought process: Circumstantial thought process present and not confabulating Thought content: Normal thought content present Insight: Limited insight present (Psych) Judgement: Limited judgement present (Psych) Assessment & Plan Assessment & Plan (1) GERD (gastroesophageal reflux disease): Code(s): K21.9 - Gastro-esophageal reflux disease without esophagitis Category: Medical (2) Irritable bowel syndrome: Code(s): K58.9 - Irritable bowel syndrome, unspecified Category: Medical (3) Chronic idiopathic constipation: Code(s): K59.04 - Chronic idiopathic constipation Category: Medical (4) Tubular adenoma of colon: Onset Date: ~2019 Comment: (as of 06/2024 colonoscopy postpone due to acute on chronic respiratory therapy) 2022= 2 polyps repeat in 5 years: 2020=multiple large polyps and poor prep, was to be repeated in 6-12 months but pt keeps cancelling. Code(s): D12.6 - Benign neoplasm of colon, unspecified Category: Medical (5) Abdominal bloating: Code(s): R14.0 - Abdominal distension (gaseous) Category: Medical (6) Chronic abdominal pain: Code(s): R10.9 - Unspecified abdominal pain; G89.29 - Other chronic pain Category: Medical (7) Knee swelling: Code(s): M25.469 - Effusion, unspecified knee Category: Medical (8) Rash: Code(s): R21 - Rash and other nonspecific skin eruption Category: Medical Plan Guyanese #Rossana Jain He is taking Linzess 290 in 2 bisacody, colace, creon, and famotidine. Not getting Linzess. ? This might be related to a PA. Also c/o rash on right knee with swelling, he asks if this is the same as his balanitis (NO!!) will get xr of knee and give betamethasone cream. Also complaining of petechiae that occur on the arms and ankles this likely is related to his anticoagulation therapy but also could have been related to his viral pneumonia. He was reassured and told it only if they are enlarging or swelling or they problematic. Was hospitalized severe resp infection in June here and at [facility], with this and acute and suspected chronic respiratory failure will postpone colonoscopy until this is resolved - having right side CP my lungs he will be presenting to the ER today to check on this. ROV 4 weeks. Orders: Orders XR knee RT 2V Today M25.469 - Effusion, unspecified knee Medications: New betamethasone valerate 0.1% 1 appl topical TID 60 mL 1RF R21 - Rash and other nonspecific skin eruption docusate sodium (Colace) 100 mg PO BIDAC 60 caps 6RF Changed From bisacodyl (Dulcolax (bisacodyl)) 5 mg PO BEDTIME To bisacodyl (Dulcolax (bisacodyl)) 10 mg (2 x 5 mg) PO BEDTIME 60 tabs 6RF Refilled linaclotide (Linzess) 290 mcg PO QAM 30 caps 6RF omeprazole 40 mg PO DAILY 90 caps 1RF simethicone after meals 180 mg PO QID 120 caps 3RF 30 days famotidine 40 mg PO BEDTIME 90 tabs 1RF Coding Level of Care Code Est Pt Level 4 (47512) Diagnoses GERD (gastroesophageal reflux disease) K21.9 Irritable bowel syndrome K58.9 Chronic idiopathic constipation K59.04 Tubular adenoma of colon D12.6 Abdominal bloating R14.0 Chronic abdominal pain R10.9; G89.29 Knee swelling M25.469 Rash R21 Time Spent (min) 37
[2024-08-12 13:58] VITALS: BP 134/84; PULSE 82; O2SAT 95; BMI 22.8
--- OUTSIDE RECORDS SUMMARY | 2024-08-12 14:09 | XMS_ITS | Continuity of Care Document ---
Author Organization [facility] Address [address] [place] [address]- Care Team Providers Care Engraver Set Up Operator Name Role Phone Susie CARABALLO Yesenia A Primary Care Physician [phone] [facility] [id number] Date(s): 07/10/24 - 08/09/[address] [address]- Attending Physician: Fitz Trivedi Admitting Physician: Fitz Trivedi Referring Physician: trFitz Encounter Type: Triage Allergies, Adverse Reactions, Alerts Substance Criticality Severity [...] Date: 08/26/23 Status: Ordered Repeat number: 1 Breo Ellipta 200 mcg-25 mcg/inh inhalation powder 1 inhalation, Inhalation, Daily, at the same time every day, # 1 each, 0 Refills, Maintenance, 05/07/24 10:30:00 AM EST, Inhaler, [facility], Partial fill upon patient request if [...] 60.0 Unit: tablet Repeat number: 1 ergocalciferol 19337 iu oral capsule 50,000 International_Units, 1, capsule, [...] Refills, Maintenance, 05/07/24 10:36:00 AM EST, Suspension, [facility], Partial fill upon patient request [...] 10 mg oral tablet See Instructions, 60mg - Apr 50mg Apr 40mg Apr 30mg May. 20mg - 20 May. After that, maintain on your home dose of 20mg of Prednisone every day., # 54 each, 0 Refills, Maintenance, 05/07/24 10:44:00 AM EST, [facility], Partial fill upon patient request [...] 0 Refills, Maintenance, 05/07/24 10:30:00 AM EST[facility], Partial fill upon patient request if [...] Refills, Maintenance, 05/07/24 10:36:00 AM EST, [facility]haler, [facility], Partial fill upon patient request if [...] List Condition Confirmation Course Effective Dates Status Health St atus Informant Acute hypoxic respiratory failure Confirmed Active Asthma Confirmed Active COPD with asthma Confirmed Active Tobacco abuse Confirmed Active Patient Care team information Care Team Personnel Name: Tari Goodwin RN Position: S RN Member Role: Primary Care Nurse Name: Rajeev Rodriguez RN Position: S RN Member Role: Primary Care Nurse Name: Yesenia Richards DO Position: [facility] Outreach Member Role: PCP Address: [address] [place] [address] Telecom: Name: Ashly Sahu RN Position: S RN Member Role: Primary Care Nurse Name: Janak Junior RN Position: S RN Member Role: Primary Care Nurse Name: Claudia Villeda RN Position: S RN Member Role: Primary Care Nurse Name: Sowmya Aguirre RN Position: S RN Member Role: Primary Care Nurse Name: Amparo Eisenberg RN Position: S RN Member Role: Primary Care Nurse Care Team Related Persons Name: KENDY HODGSON Name: TOY JACK Insurance Providers Guarantor name: HTOMAS Health Plan Information #: 1 [facility] Member Number: THOMAS Policy Number: THOMAS Group Number: [id number]
== END 2024-08-12 14:31 | disposition home or self-care (01) ==
LOC: HO.HGI 13:53
PROVIDERS: PCP Student in an Organized Health Care Education/Training Program; Visit Provider Nurse Practitioner
DX: K21.9 Gastro-esophageal reflux disease without esophagitis (principal); K58.9 Irritable bowel syndrome, unspecified; K59.04 Chronic idiopathic constipation; D12.6 Benign neoplasm of colon, unspecified; R14.0 Abdominal distension (gaseous); R10.9 Unspecified abdominal pain; G89.29 Other chronic pain; M25.469 Effusion, unspecified knee; R21 Rash and other nonspecific skin eruption
CPT/HCPCS: 99214

== ENCOUNTER 2024-08-12 13:52 | Outpatient (REF) | payer MEDICAID, SELFPAY | END 2024-08-12 13:53 | disposition home or self-care (01) | LOC: HO.XRAY 13:52 | PROVIDERS: PCP Family Medicine; Visit Provider Nurse Practitioner | DX: K21.9 Gastro-esophageal reflux disease without esophagitis (principal); K58.9 Irritable bowel syndrome, unspecified; K59.04 Chronic idiopathic constipation; D12.6 Benign neoplasm of colon, unspecified; R14.0 Abdominal distension (gaseous); R10.9 Unspecified abdominal pain; G89.29 Other chronic pain; M25.469 Effusion, unspecified knee; R21 Rash and other nonspecific skin eruption | CPT/HCPCS: 99212 ==

== ENCOUNTER 2024-08-19 15:50 | Outpatient (REF) | payer MEDICAID, SELFPAY ==
--- NOTE | ~2024-08-19 | XR_ITS ---
EXAMINATION: XR KNEE, RIGHT CLINICAL INFORMATION: M25.469 - Effusion, unspecified knee COMPARISON: Right knee 02/22/2023 TECHNIQUE: Two views of the right knee. FINDINGS: There is mild reduction in the medial and patellofemoral compartment joint space. No bony erosive changes, loose bodies are periarticular spurring. Small No suprapatellar joint effusion seen There is soft tissue calcification medial to the knee joint similar to previous study. 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 Extensive vascular calcifications are present as well the popliteal artery. XR/XR knee RT 2V IMPRESSION: Mild degenerative changes medial and patellofemoral compartment. Small suprapatellar joint effusion. 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 Multiple skin calcifications throughout the knee slightly more than the previous study. Differential diagnosis includes venous and arterial calcifications Electronically signed by: Rashi Palmer MD 08/20/2024 07:23 AM EDT
--- OUTSIDE RECORDS SUMMARY | 2024-08-19 17:03 | XMS_ITS | Clinical Summary ---
Author Organization [facility] Address [address] [place] [address] Care Team Providers Care Funeral Attendant Name Role Phone MinorAmna chanel Primary Care Provider [phone]- [phone] Medical History Medical History Date Comments Tobacco use 05/28/2017 DX:Tobacco use Asthma-COPD overlap syndrome (CMS/HCC V24, CMS/HCC V28) 05/28/2017 DX:Asthma-COPD overlap syndr ome ([facility]) Social History Tobacco Use Types Packs/Day [...] Documents on File Type Date Recorded Patient Hose Wrapper Expl anation Health Care Decision (hx) 06/24/2017 AD MCCANN DIRECTIVE Health Care Decision (hx) 06/24/2017 AD MCCANN DIRECTIVE Health Care Decision (hx) 06/24/2017 AD MCCANN DIRECTIVE Health Care Decision (hx) 06/24/2017 AD MCCANN DIRECTIVE Health Care Decision (hx) 06/24/2017 AD MCCANN DIRECTIVE Care Teams Funeral Attendant Relationship Specialty Start Date End Date Amna Richards DO [address] [place] [address] PCP - General Internal Medicine 06/20/17
[2024-08-19 17:27] LABS: Parathyroid Hormone Intact 72.4 pg/mL (8.7-77.1)
[2024-08-19 17:50] LABS: Albumin Level 4.4 g/dL (3.5-5.0); Anion Gap 10 (12-20); Blood Urea Nitrogen 10 mg/dL (9-16); Calcium 9.4 mg/dL (8.4-10.2); Carbon Dioxide 36 mmol/L (22-29); Chloride 96 mmol/L (96-108); Estimated Glomerular Filt Rate > 60; Glucose Random 134 mg/dL (60-115); Potassium 4.2 mmol/L (3.3-5.1); Sodium 138 mmol/L (135-145)
== END 2024-08-19 15:51 | disposition home or self-care (01) ==
LOC: HO.XRAY 15:50
PROVIDERS: Internal Medicine Endocrinology, Diabetes & Metabolism; PCP Family Medicine; Visit Provider Nurse Practitioner
DX: M25.461 Effusion, right knee (principal)
CPT/HCPCS: 36415; 73560; 80048; 82040; 83970

== ENCOUNTER → 2024-08-19 16:07 | Outpatient (BNV) | payer MEDICAID, SELFPAY | PROVIDERS: PCP Family Medicine; Visit Provider Radiology Diagnostic Radiology | DX: M25.461 Effusion, right knee (principal); L94.2 Calcinosis cutis | CPT/HCPCS: 73560 ==

== ENCOUNTER 2024-08-21 12:18 | Outpatient (REF) | payer MEDICAID, SELFPAY ==
[2024-08-21 13:33] LABS: Creatinine, mg/dL 56.68
[2024-08-21 14:13] LABS: Creatinine, 24Hr Urine 1.6 G/Day (1.0-2.0); Total Volume 24 Hour Urine 2825 mL
--- OUTSIDE RECORDS SUMMARY | 2024-08-21 14:22 | XMS_ITS | Clinical Summary ---
Author Organization [facility] Address [address] [place] [address] Care Team Providers Care Drum Handler Name Role Phone MinorAmna chanel Primary Care Provider +1- [phone] Medical History Medical History Date Comments Tobacco use 05/28/2017 DX:Tobacco use Asthma-COPD overlap syndrome (CMS/HCC V24, CMS/HCC V28) 05/28/2017 DX:Asthma-COPD overlap syndr ome ([facility]) Social History Tobacco Use Types Packs/Day Years [...] Documents on File Type Date Recorded Patient Blocking Machine Tender Expl anation Health Care Decision (hx) 06/24/2017 AD MCCANN DIRECTIVE Health Care Decision (hx) 06/24/2017 AD MCCANN DIRECTIVE Health Care Decision (hx) 06/24/2017 AD MCCANN DIRECTIVE Health Care Decision (hx) 06/24/2017 AD MCCANN DIRECTIVE Health Care Decision (hx) 06/24/2017 AD MCCANN DIRECTIVE Care Teams Drum Handler Relationship Specialty Start Date End Date Amna Richards DO [address] [place] [address] PCP - General Internal Medicine 06/20/17
[2024-08-25 16:43] LABS: Calcium, 24 Hr Urine 438 mg/24 h; Calcium/Creatinine Ratio 282 mg/g creat (30-210); Creatinine 24Hr Urine 1.55 g/24 h (0.50-2.15)
== END 2024-08-21 12:19 | disposition home or self-care (01) ==
LOC: HO.LNP 12:18
PROVIDERS: Visit Provider Internal Medicine Endocrinology, Diabetes & Metabolism
DX: M81.0 Age-related osteoporosis without current pathological fracture (principal)
CPT/HCPCS: 82340; 82570

== ENCOUNTER 2024-08-29 14:49 | Outpatient (AMB) | payer MEDICAID, SELFPAY ==
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
[2024-08-29 14:52] VITALS: BP 152/84; PULSE 94; O2SAT 95; BMI 23.4
--- OUTSIDE RECORDS SUMMARY | 2024-08-29 14:52 | XMS_ITS | Clinical Summary ---
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
== END 2024-08-29 15:26 | disposition home or self-care (01) ==
LOC: HO.HPS 14:50
PROVIDERS: PCP Student in an Organized Health Care Education/Training Program; Visit Provider Hospitalist
DX: R07.9 Chest pain, unspecified (principal); J44.1 Chronic obstructive pulmonary disease with (acute) exacerbation; F17.200 Nicotine dependence, unspecified, uncomplicated; J98.11 Atelectasis
CPT/HCPCS: 99214

== ENCOUNTER 2024-08-29 14:49 | Outpatient (REF) | payer MEDICAID, SELFPAY ==
--- NOTE | ~2024-08-29 | XR_ITS ---
EXAMINATION: XR CHEST CLINICAL INFORMATION: R07.9 - Chest pain, unspecified COMPARISON: June 15, 2024 TECHNIQUE: 2 views of the chest were obtained. FINDINGS: Cardiac size is at the upper limits of normal. Perihilar markings are mildly prominent. Patchy ground glass densities in the right lower lung are similar to the prior. There is methacrylate in the mid to upper thoracic body. XR/XR chest 2V IMPRESSION: Cardiac size is upper limits of normal and there is mild nonspecific prominence of pulmonary vascularity. Electronically signed by: Jan Pinedo MD 08/29/2024 05:47 PM EDT
[2024-08-29 15:50] LABS: MANUAL DIFF FLAG NO
[2024-08-29 15:54] LABS: VBG Base Excess 8.3 mmol/L; VBG HCO3 34 mmol/L (22-26); VBG pCO2 54 mmHg; VBG pH 7.41 (7.32-7.43); VBG pO2 51 mmHg
[2024-08-29 15:55] LABS: Venous Blood Gas Refer to POC result
[2024-08-29 16:05] LABS: Alanine Aminotransferase 25 U/L (0-40); Albumin Level 4.3 g/dL (3.5-5.0); Alkaline Phosphatase 53 U/L (39-117); Anion Gap 13 (12-20); Aspartate Amino Transferase 25 U/L (5-37); Basophils Absolute Auto 0.1 X10*3/uL (0.0-0.2); Basophils Percent Auto 0.3 % (0-2); Bilirubin Direct 0.1 mg/dL (0.0-0.5); Bilirubin Total 0.4 mg/dL (0.0-1.0); Blood Urea Nitrogen 16 mg/dL (9-16); Carbon Dioxide 31 mmol/L (22-29); Chloride 99 mmol/L (96-108); Eosinophils Absolute Auto 0.1 X10*3/uL (0.0-0.4); Eosinophils Percent Auto 0.5 % (0-4); Estimated Glomerular Filt Rate > 60; Glucose Random 123 mg/dL (60-115); Hematocrit 40.5 % (42.0-52.0); Hemoglobin 13.6 g/dl (14.0-18.0); Imm Gran Pct Auto 1.1 % (0.0-0.4); Lymphocytes Absolute Auto 2.8 X10*3/uL (1.2-4.9); Lymphocytes Percent Auto 15.3 % (20-40); Mean Corpuscular HGB Conc 33.6 g/dl (31.0-36.0); Mean Corpuscular Hemoglobin 31.1 pg (27.0-33.0); Mean Corpuscular Volume 92.7 fL (80.0-98.0); Mean Platelet Volume 8.1 fL (9.4-12.4); Monocytes Absolute Auto 1.4 X10*3/uL (0.1-1.2); Neutrophils Absolute Auto 13.5 x10*3/uL (2.0-8.3); Neutrophils Percent Auto 74.8 % (45-73); Platelet Count 319 X10*3/uL (160-400); Potassium 3.9 mmol/L (3.3-5.1); Red Blood Count 4.37 X10*6/uL (4.60-5.80); Red Cell Distribution Width 13.9 % (11.0-16.0); Sodium 139 mmol/L (135-145); Total Protein 6.6 g/dL (6.5-8.0); White Blood Count 18.1 X10*3/uL (4.8-10.8)
[2024-08-29 17:02] LABS: Erythrocyte Sedimentation Rate 5 MM/HR (0-15)
== END 2024-08-29 14:50 | disposition home or self-care (01) ==
LOC: HO.XRAY 14:49
PROVIDERS: Internal Medicine Endocrinology, Diabetes & Metabolism; PCP Family Medicine; Visit Provider Hospitalist
DX: M81.0 Age-related osteoporosis without current pathological fracture (principal); R07.9 Chest pain, unspecified; J44.1 Chronic obstructive pulmonary disease with (acute) exacerbation; J98.11 Atelectasis; F17.210 Nicotine dependence, cigarettes, uncomplicated; Z79.52 Long term (current) use of systemic steroids
CPT/HCPCS: 36415; 71046; 80048; 80076; 82310; 82803; 85025; 85652; 99212

== ENCOUNTER → 2024-08-29 15:50 | Outpatient (BNV) | payer MEDICAID, SELFPAY | PROVIDERS: PCP Family Medicine; Visit Provider Radiology Diagnostic Radiology | DX: R07.9 Chest pain, unspecified (principal) | CPT/HCPCS: 71046 ==

== ENCOUNTER 2024-09-25 14:03 | Outpatient (AMB) | payer MEDICAID, SELFPAY ==
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
[2024-09-25 14:07] VITALS: BP 144/78; PULSE 98; O2SAT 94; BMI 23.7
--- OUTSIDE RECORDS SUMMARY | 2024-09-25 14:13 | XMS_ITS | Encounter Summary ---
Author Organization [employer] Address [address] [place] [address] [address] [place] [address] Care Team Providers Care American Sign Language Interpreter Name Role Phone Amna Richards DO Primary Care Provider [phone] Reason for Visit * Reason Comments Care Management C3- Initial assess ment/enrollment Encounter Details Date Type Department Care Team ([facility] st Contact Info) Description 09/23/2024 Patient Outreach [facility] MEDICINE [address] [place] [address] Amna Richards DO [address] [place] [address] Care Management (C3CM- Initial assessment/enrollmen t) Social History Tobacco Use Types Packs/Day Years [...] as of this encounter Progress Notes * Aldo Valle RN - 09/23/2024 12:56 PM EDT CM Aldo Valle RN, placed outbound call to patient for agreed upon assessment time. Received busysignal, re-attempted call after 5 minutes and continues to be busy. CHW will attempt contact with patient to reschedule missed initial assessment. documented in this encounter Plan of Treatment Upcoming Encounters Date Type Department Care Team (Late st Contact Info) Description 09/26/2024 1:00 PM EDT Telemedicine [facility] MEDICINE [address] [place] [address] Ester Chatman RN documented as of this encounter Visit Diagnoses Not on filedocumented in this encounter Additional Health Concerns Assessment Noted Time PHQ-9 Depression Total Score: 11 09/02/ 024 1:53 PM EDT documented as of this encounter Care Teams American Sign Language Interpreter Relationship Specialty Start Date End Date Amna Richards DO [address] [place] [address] PCP - General Family Medicine 10/12/23 [facility] 05/08/24 documented as of this encounter
--- OUTSIDE RECORDS SUMMARY | 2024-09-25 14:13 | XMS_ITS | Clinical Summary ---
Author Organization [facility] ity Address [address] [place] [address] Care Team Providers Care Events Administrative Assistant Name Role Phone Amna Richards Primary Care Provider [phone] Medical History Medical History Date Comments Tobacco use 05/28/2017 DX:Tobacco use Asthma-COPD overlap syndrome (CMS/HCC V24, CMS/HCC V28) 05/28/2017 DX:Asthma-COPD overlap syndr ome (HCC) Social History Tobacco Use Types Packs/Day [...] ars (1 of 2 - PCV) 02/20/1987 Zoster Vaccines (1 of 2) 02/20/2018 Cholesterol Screening (Lipid Panel) 04/17/2023 Colorectal Cancer Screening: Colonoscopy 04/17/2023 Depression Screening 04/17/2023 HIV Screening 04/17/2023 Hepatitis C Screening 04/17/2023 Social Influencers of Health Screening 04/17/2023 COVID-19 Vaccine ( - 2023-2 5 season) 2023 Influenza Vaccine (#1) 2024 HIB Vaccines Aged Out No longer [...] Documents on File Type Date Recorded Patient Door Fitter Expl anation Health Care Decision (hx) 06/24/2017 AD MCCANN DIRECTIVE Health Care Decision (hx) 06/24/2017 AD MCCANN DIRECTIVE Health Care Decision (hx) 06/24/2017 AD MCCANN DIRECTIVE Health Care Decision (hx) 06/24/2017 AD MCCANN DIRECTIVE Health Care Decision (hx) 06/24/2017 AD MCCANN DIRECTIVE Care Teams Events Administrative Assistant Relationship Specialty Start Date End Date Amna Richards DO [address] [place] [address] PCP - General Internal Medicine 06/20/17
== END 2024-09-25 16:26 | disposition home or self-care (01) ==
LOC: HO.HPS 14:03
PROVIDERS: PCP Student in an Organized Health Care Education/Training Program; Visit Provider Hospitalist
DX: J98.11 Atelectasis (principal); J44.1 Chronic obstructive pulmonary disease with (acute) exacerbation; F17.200 Nicotine dependence, unspecified, uncomplicated; J44.9 Chronic obstructive pulmonary disease, unspecified
CPT/HCPCS: 99214

== ENCOUNTER → 2024-09-25 14:03 | Outpatient (BNVA) | payer MEDICAID, SELFPAY | PROVIDERS: PCP Student in an Organized Health Care Education/Training Program; Visit Provider Hospitalist | DX: J44.1 Chronic obstructive pulmonary disease with (acute) exacerbation (principal); J45.901 Unspecified asthma with (acute) exacerbation; F17.210 Nicotine dependence, cigarettes, uncomplicated; Z71.6 Tobacco abuse counseling; Z79.52 Long term (current) use of systemic steroids | CPT/HCPCS: 96372; 99212 ==

== ENCOUNTER 2024-10-23 16:04 | Outpatient (AMB) | payer MEDICAID, SELFPAY ==
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
--- OUTSIDE RECORDS SUMMARY | 2024-10-23 16:08 | XMS_ITS | Encounter Summary ---
Author Organization [employer] Address [address] [place] [address] 7t [place] [address] Care Team Providers Care Rapid Extractor Operator Name Role Phone Amna Richards DO Primary Care Provider [phone] Encounter Details Date Type Department Care Team ([facility] st Contact Info) Description 05/01/2024 Telephone [facility] MEDICINE [address] [place] [address] Amna Richards DO [address] [place] [address] Social History Tobacco Use Types Packs/Day Years [...] Care Team (Late st Contact Info) Description 10/27/2024 11:30 AM EDT Office Visit [facility] MEDICINE [address] [place] [address] Amna Richards DO [address] [place] [address] 11/07/2024 11:30 AM EDT Telemedicine [address] [address] Ester Chatman RN documented as of this encounter Visit Diagnoses Not on filedocumented in this encounter Additional Health Concerns Assessment Noted Time PHQ-9 Depression Total Score: 11 024 1:53 PM EDT documented as of this encounter Care Teams Rapid Extractor Operator Relationship Specialty Start Date End Date Amna Richards DO [address] [place] [address] PCP - General Family Medicine 10/12/23 [facility] 05/08/24 documented as of this encounter
--- OUTSIDE RECORDS SUMMARY | 2024-10-23 16:08 | XMS_ITS | Clinical Summary ---
Author Organization [facility] Address [address] [place] [address] Care Team Providers Care Radio Operator Ground Name Role Phone Amna Richards Primary Care Provider [phone]- [phone] Medical History Medical History Date Comments Tobacco [...] Panel) 04/17/2023 Colorectal Cancer Screening: Colonoscopy 04/17/2023 HIV Screening 04/17/2023 Hepatitis C Screening 04/17/2023 Social Influencers of Health Screening 04/17/2023 COVID-19 Vaccine ( - 2023-2 5 season) 2023 Depression Screening 03/19/2024 Influenza Vaccine (#1) 2024 HIB Vaccines Aged [...] Documents on File Type Date Recorded Patient Belly Dancer Expl anation Health Care Decision (hx) 06/24/2017 AD MCCANN DIRECTIVE Health Care Decision (hx) 06/24/2017 AD MCCANN DIRECTIVE Health Care Decision (hx) 06/24/2017 AD MCCANN DIRECTIVE Health Care Decision (hx) 06/24/2017 AD MCCANN DIRECTIVE Health Care Decision (hx) 06/24/2017 AD MCCANN DIRECTIVE Care Teams Radio Operator Ground Relationship Specialty Start Date End Date Amna Richards DO [address] [place] [address] PCP - General Internal Medicine 06/20/17
[2024-10-23 16:09] VITALS: BP 142/72; PULSE 100; O2SAT 98; BMI 23.3
== END 2024-10-23 16:36 | disposition home or self-care (01) ==
LOC: HO.ENCR 16:05
PROVIDERS: PCP Student in an Organized Health Care Education/Training Program; Visit Provider Internal Medicine Endocrinology, Diabetes & Metabolism
DX: M81.0 Age-related osteoporosis without current pathological fracture (principal)
CPT/HCPCS: 99213

== ENCOUNTER → 2024-10-23 16:04 | Outpatient (BNVA) | payer MEDICAID, SELFPAY | PROVIDERS: PCP Student in an Organized Health Care Education/Training Program; Visit Provider Internal Medicine Endocrinology, Diabetes & Metabolism | DX: M81.0 Age-related osteoporosis without current pathological fracture (principal) | CPT/HCPCS: 99212 ==

== ENCOUNTER 2024-10-28 12:21 | Outpatient (REF) | payer MEDICAID, SELFPAY ==
--- OUTSIDE RECORDS SUMMARY | 2024-10-28 13:10 | XMS_ITS | Encounter Summary ---
Author Organization [employer] Address [address] [place] [address] 7t [place] [address] Care Team Providers Care Senior Firewall Engineer Name Role Phone Amna Richards DO Primary Care Provider [phone] Encounter Details Date Type Department Care Team ([facility] st Contact Info) Description 05/01/2024 Telephone [facility] MEDICINE [address] [place] [address] Amna Richards DO [address] [place] [address] Social History Tobacco Use Types Packs/Day Years [...] Care Team (Late st Contact Info) Description 11/07/2024 11:30 AM EDT Telemedicine [facility] MEDICINE [address] [place] [address] Ester Chatman, RN documented as of this encounter Visit Diagnoses Not on filedocumented in this encounter Additional Health Concerns Assessment Noted Time PHQ-9 Depression Total Score: 11 024 1:53 PM EDT documented as of this encounter Care Teams Senior Firewall Engineer Relationship Specialty Start Date End Date Amna Richards DO [address] [place] [address] PCP - General Family Medicine 10/12/23 [facility] 05/08/24 documented as of this encounter
--- OUTSIDE RECORDS SUMMARY | 2024-10-28 13:10 | XMS_ITS | Clinical Summary ---
Author Organization [facility] Address [address] [place] [address] Care Team Providers Care Laundry Housekeeping Aide Name Role Phone Amna Richards Primary Care Provider [phone]- [phone] Medical History Medical History Date Comments Tobacco [...] Documents on File Type Date Recorded Patient Lab Intern Expl anation Health Care Decision (hx) 06/24/2017 AD MCCANN DIRECTIVE Health Care Decision (hx) 06/24/2017 AD MCCANN DIRECTIVE Health Care Decision (hx) 06/24/2017 AD MCCANN DIRECTIVE Health Care Decision (hx) 06/24/2017 AD MCCANN DIRECTIVE Health Care Decision (hx) 06/24/2017 AD MCCANN DIRECTIVE Care Teams Laundry Housekeeping Aide Relationship Specialty Start Date End Date Amna Richards DO [address] [place] [address] PCP - General Internal Medicine 06/20/17
[2024-10-28 16:13] LABS: Appearance Urine Clear; Glucose Urine UA Negative (Negative); PH 6.0 (5.0-9.0); Specific Gravity - Urine 1.015 (1.005-1.025); UMIC TRIGGER UA YES
[2024-10-28 17:49] LABS: MANUAL DIFF FLAG NO
[2024-10-28 17:52] LABS: Hematocrit 45.8 % (42.0-52.0); Hemoglobin 14.8 g/dl (14.0-18.0); Imm Gran Abs Auto 0.14 X10*3/uL (0.00-0.03); Imm Gran Pct Auto 1.0 % (0.0-0.4); Lymphocytes Absolute Auto 0.9 X10*3/uL (1.2-4.9); Mean Corpuscular HGB Conc 32.3 g/dl (31.0-36.0); Mean Corpuscular Hemoglobin 30.3 pg (27.0-33.0); Mean Corpuscular Volume 93.9 fL (80.0-98.0); NRBC Abs Auto 0.000 X10*3/uL (0.0-0.012); NRBC Pct Auto 0.0 /100WBC (0.0-0.2); Platelet Count 421 X10*3/uL (160-400); Red Blood Count 4.88 X10*6/uL (4.60-5.80); White Blood Count 13.6 X10*3/uL (4.8-10.8)
[2024-10-28 18:05] LABS: Prealbumin 24.0 mg/dL (20-40)
[2024-10-28 18:14] LABS: Alanine Aminotransferase 17 U/L (0-40); Albumin Level 4.3 g/dL (3.5-5.0); Alkaline Phosphatase 63 U/L (39-117); Anion Gap 14 (12-20); Aspartate Amino Transferase 24 U/L (5-37); Blood Urea Nitrogen 12 mg/dL (9-16); Calcium 10.4 mg/dL (8.4-10.2); Carbon Dioxide 32 mmol/L (22-29); Chloride 99 mmol/L (96-108); Estimated Glomerular Filt Rate > 60; Potassium 3.8 mmol/L (3.3-5.1); Sodium 141 mmol/L (135-145); Total Protein 7.1 g/dL (6.5-8.0)
[2024-10-28 18:26] LABS: Prostate Specific Antigen 1.19 ng/mL (<0.05-4.0)
[2024-10-28 18:29] LABS: Free T4 (Free Thyroxine) 0.87 ng/dL (0.71-1.85); Thyroid Stimulating Hormone 0.55 uIU/mL (0.32-4.0)
[2024-10-29 04:14] LABS: HIV Num 1 0.04 S/CO (0.00-0.99)
[2024-10-31 09:08] LABS: TS Negative Control Passed; TS Panel A 0; TS Panel B 0; TS Positive Control Passed; TSpotTB Negative (Negative)
== END 2024-10-28 12:22 | disposition home or self-care (01) ==
LOC: HO.HHCL 12:21
PROVIDERS: PCP Family Medicine; Visit Provider Family Medicine
DX: R63.4 Abnormal weight loss (principal); Z11.4 Encounter for screening for human immunodeficiency virus [HIV]; Z11.1 Encounter for screening for respiratory tuberculosis
CPT/HCPCS: 36415; 80048; 80076; 81001; 84134; 84153; 84439; 84443; 85025; 85652; 86140; 86481; 87086; 87389

== ENCOUNTER 2024-12-05 14:12 | Outpatient (REF) | payer MEDICAID, SELFPAY ==
[2024-12-05 15:54] LABS: Resp Syncy Virus RNA Qual PCR NEGATIVE (Negative); SARS COV2 PCR INHOUSE NEGATIVE (Negative)
[2024-12-05 16:35] LABS: Albumin Level 4.4 g/dL (3.5-5.0); Anion Gap 12 (12-20); Blood Urea Nitrogen 10 mg/dL (9-16); Calcium 9.3 mg/dL (8.4-10.2); Carbon Dioxide 33 mmol/L (22-29); Chloride 96 mmol/L (96-108); Estimated Glomerular Filt Rate > 60; Potassium 4.4 mmol/L (3.3-5.1); Sodium 137 mmol/L (135-145)
== END 2024-12-05 14:13 | disposition home or self-care (01) ==
LOC: HO.LAB 14:12
PROVIDERS: Absent Provider Internal Medicine Endocrinology, Diabetes & Metabolism; PCP Family Medicine; Visit Provider Hospitalist
DX: J44.1 Chronic obstructive pulmonary disease with (acute) exacerbation (principal); E11.9 Type 2 diabetes mellitus without complications; J98.11 Atelectasis; F17.210 Nicotine dependence, cigarettes, uncomplicated; M81.0 Age-related osteoporosis without current pathological fracture; Z71.6 Tobacco abuse counseling; Z79.899 Other long term (current) drug therapy; Z79.52 Long term (current) use of systemic steroids
CPT/HCPCS: 36415; 80048; 82040; 87637; 99212

== ENCOUNTER 2024-12-05 14:12 | Outpatient (AMB) | payer MEDICAID, SELFPAY ==
--- OUTSIDE RECORDS SUMMARY | 2024-12-05 14:15 | XMS_ITS | Encounter Summary ---
Author Organization [employer] Address [address] [place] [address] 7t [place] [address] Care Team Providers Care Healthcare Facility Administrator Name Role Phone Susie Amna Primary Care Provider + [phone] Reason for Visit * Reason Comments Med Refill Encounter Details Date Type Department Care Team ([facility] st Contact Info) Description 01/25/2024 Refill [facility] MEDICINE [address] [place] [address] Candace Singh MD [address] [place] [address] Fracture of vertebra due to osteoporosis, sequela [...] Care Team (Late st Contact Info) Description 12/08/2024 1:30 PM EDT Clinical Support [facility] MEDICINE [address] [place] [address] Ester Chatman RN 03/06/2025 3:00 PM EST Office Visit [facility] OPTOMETRY [address] [place], [place] [phone] Edna Latham, OD [address] [place] [address] documented as of this encounter Visit Diagnoses Diagnosis Fracture of vertebra due to osteoporosis, sequela documented in this encounter Additional Health Concerns Assessment Noted Time PHQ-9 Depression Total Score: 11 024 1:53 PM EDT documented as of this encounter Care Teams Healthcare Facility Administrator Relationship Specialty Start Date End Date Amna Richards DO [address] [place] [address] PCP - General Family Medicine 10/12/23 [facility] 05/08/24 documented as of this encounter
--- OUTSIDE RECORDS SUMMARY | 2024-12-05 14:15 | XMS_ITS | Clinical Summary ---
Author Organization [facility] Address [address] [place] [address] Care Team Providers Care Form Grader Name Role Phone Amna Richards Primary Care Provider [phone]- [phone] Medical History Medical History Date Comments Tobacco [...] 04/17/2023 Social Influencers of Health Screening 04/17/2023 Depression Screening 03/19/2024 COVID-19 Vaccine ( - 2023-2 5 season) 2024 Influenza Vaccine (#1) 2024 HIB Vaccines Aged [...] Documents on File Type Date Recorded Patient Press Manager Expl anation Health Care Decision (hx) 06/24/2017 AD MCCANN DIRECTIVE Health Care Decision (hx) 06/24/2017 AD MCCANN DIRECTIVE Health Care Decision (hx) 06/24/2017 AD MCCANN DIRECTIVE Health Care Decision (hx) 06/24/2017 AD MCCANN DIRECTIVE Health Care Decision (hx) 06/24/2017 AD MCCANN DIRECTIVE Care Teams Form Grader Relationship Specialty Start Date End Date Amna Richards DO [address] [place] [address] PCP - General Internal Medicine 06/20/17
--- OUTSIDE RECORDS SUMMARY | 2024-12-05 14:15 | XMS_ITS | Encounter Summary ---
Author Organization [employer] Address [address] [place] [address] 7t [place] [address] Care Team Providers Care Engineering Mgr Name Role Phone Amna Richards DO Primary Care Provider [phone] Encounter Details Date Type Department Care Team ([facility] st Contact Info) Description 05/01/2024 Telephone [facility] MEDICINE [address] [place] [address] Amna Richards DO [address] [place] [address] Social History Tobacco Use Types Packs/Day Years [...] Description 12/08/2024 1:30 PM EDT Clinical Support [facility] MEDICINE [address] [place] [address] Ester Chatman, JACOB 03/06/2025 3:00 PM EST Office Visit [facility] OPTOMETRY [address] [place], [place] [phone] Edna Latham OD [address] [place] [address] documented as of this encounter Visit Diagnoses Not on filedocumented in this encounter Additional Health Concerns Assessment Noted Time PHQ-9 Depression Total Score: 11 024 1:53 PM EDT documented as of this encounter Care Teams Engineering Mgr Relationship Specialty Start Date End Date Amna Richards DO [address] [place] [address] PCP - General Family Medicine 10/12/23 [facility] 05/08/24 documented as of this encounter
--- OUTSIDE RECORDS SUMMARY | 2024-12-05 14:16 | XMS_ITS | Encounter Summary ---
Author Organization [employer] Address [address] [place] [address] 7t [place] [address] Care Team Providers Care Guidance Counselor Name Role Phone Amna Richards DO Primary Care Provider + [phone] Reason for Visit * Reason Comments Med Refill Encounter Details Date Type Department Care Team ([facility] st Contact Info) Description 2024 Refill [facility] MEDICINE [address] [place] [address] Amna Richards DO [address] [place] [address] Social History Tobacco Use Types Packs/Day Years [...] Description 12/08/2024 1:30 PM EDT Clinical Support [facility] MEDICINE [address] [place] [address] Ester Chatman, JACOB 03/06/2025 3:00 PM EST Office Visit [facility] OPTOMETRY [address] [place], [place] [phone] Edna Latham, OD [address] [place] [address] documented as of this encounter Visit Diagnoses Not on filedocumented in this encounter Additional Health Concerns Assessment Noted Time PHQ-9 Depression Total Score: 11 024 1:53 PM EDT documented as of this encounter Care Teams Guidance Counselor Relationship Specialty Start Date End Date Amna Richards DO [address] [place] [address] PCP - General Family Medicine 10/12/23 [facility] 05/08/24 documented as of this encounter
--- OUTSIDE RECORDS SUMMARY | 2024-12-05 14:16 | XMS_ITS | Encounter Summary ---
Author Organization [employer] Address [address] [place] [address] 7t [place] [address] Care Team Providers Care Stitch Cleaner Name Role Phone Amna Richards DO Primary Care Provider [phone] Reason for Visit * Reason Onset Date Comments Med Refill 12/02/2024 Encounter Details Date Type Department Care Team (Late st Contact Info) Description 12/02/2024 Refill [facility] MEDICINE [address] [place] [address] Amna Richards DO [address] [place], [place] [phone] Chronic pain of right hand (Primary Dx) Social History Tobacco Use Types [...] your housing situation today? I have sandra graandos 08/06/[address] you li [...] encounter Miscellaneous Notes * Telephone Encounter - Delfino Edwards - 12/03/2024 8:39 AM EDT Tc from pt requesting for medication to be sent to pharmacy due to pt being in pain. Math Tutor advisedthat a medication refill can take 1-3 business days. Pt is upset. * Telephone Encounter - Delfino Edwards - 12/02/2024 8:38 AM EDT TC from pt requesting medication refill. Medications needing refill : traMADol (Ultram) 50 MG tablet To be sent to: [facility]/pharmacy #[id number] - [place], [place] - [address] [place] [address] documented in this encounter Plan of Treatment Upcoming Encounters Date Type Department Care Team (Late st Contact Info) Description 12/08/2024 1:30 PM EDT Clinical Support [facility] MEDICINE [address] [place] [address] sEter Chatman RN 03/06/2025 3:00 PM EST Office Visit [facility] OPTOMETRY [address] [place] [address] Edna Latham, OD [address] [place] [address] documented as of this encounter Visit Diagnoses Diagnosis Chronic pain of right hand- Primary documented in this encounter Additional Health Concerns Assessment Noted Time PHQ-9 Depression Total Score: 11 09/02/ 024 1:53 PM EDT documented as of this encounter Care Teams Stitch Cleaner Relationship Specialty Start Date End Date Amna Richards DO [address] [place] [address] PCP - General Family Medicine 10/12/23 [facility] 05/08/24 documented as of this encounter
--- OUTSIDE RECORDS SUMMARY | 2024-12-05 14:16 | XMS_ITS | Encounter Summary ---
Author Organization [employer] Address [address] [facility] [address]t [place] [address] Care Team Providers Care Tobacco Grader Name Role Phone Elizabeth Richardsfer Primary Care Provider + [phone] Encounter Details Date Type Department Care Team (Late st Contact Info) Description 01/25/2024 Orders Only [facility] [address] [place] [address] Brendon Davidson MD [address] [place] [address] Social History Tobacco Use Types Packs/Day Years [...] Description 12/08/2024 1:30 PM EDT Clinical Support [facility] MEDICINE [address] [place] [address] Ester Chatman, JACOB 03/06/2025 3:00 PM EST Office Visit [facility] OPTOMETRY [address] [place], [place] [phone] Edna Latham OD [address] [place] [address] documented as of this encounter Visit Diagnoses Not on filedocumented in this encounter Additional Health Concerns Assessment Noted Time PHQ-9 Depression Total Score: 11 024 1:53 PM EDT documented as of this encounter Care Teams Tobacco Grader Relationship Specialty Start Date End Date Amna Richards DO [address] [place] [address] PCP - General Family Medicine 10/12/23 [facility] 05/08/24 documented as of this encounter
--- OUTSIDE RECORDS SUMMARY | 2024-12-05 14:16 | XMS_ITS | Encounter Summary ---
Author Organization [employer] Address [address] [place] [address] 7 [place] [address] Care Team Providers Care Barrel Rifler Button Name Role Phone Candace Quiñones MD Primary Care Pro vider Amna Richards DO Primary Care Provider + [phone] Reason for Visit * Reason Onset Date Comments SEAT COVER INSTALLER 07/09/2023 Encounter Details Date Type Department Care Team ([facility] st Contact Info) Description 07/09/2023 Telephone [facility] MEDICINE [address] [place] [address] Candace Quiñones MD [address] [place] [address] SEAT COVER INSTALLER Social History Tobacco Use Types Packs/Day Years [...] Tc from pt calling in regards to SEAT COVER INSTALLER. Pt stated SEAT COVER INSTALLER has not been paid for about 4 weeks due to needing approval from pcp. Pt was transferred back from [facility] and stated he spoke with Marley Spoon and theyinformed pt pcp would need to contact them regarding SEAT COVER INSTALLER services and from there get in contact with program to prove pt does require SEAT COVER INSTALLER services. If any questions please contact pt at [phone]. documented in this encounter Plan of Treatment Upcoming Encounters Date Type Department Care Team (Late st Contact Info) Description 12/08/2024 1:30 PM EDT Clinical Support [facility] MEDICINE [address] [place], [place] [phone] Ester Chatman, RN 03/06/2025 3:00 PM EST Office Visit [facility] OPTOMETRY [address] [place] [address] Edna Latham, OD [address] [place] [address] documented as of this encounter Visit Diagnoses Not on filedocumented in this encounter Additional Health Concerns Assessment Noted Time PHQ-9 Depression Total Score: 11 10/23/ 023 3:01 PM EDT documented as of this encounter Care Teams Barrel Rifler Button Relationship Specialty Start Date End Date Candace Quiñones MD [address] [place] [address] PCP - General Internal Medicine 07/24/22 10/11/23 Amna Richards DO [address] [place] [address] PCP - General Family Medicine 10/12/23 [facility] 05/08/24 documented as of this encounter
--- OUTSIDE RECORDS SUMMARY | 2024-12-05 14:16 | XMS_ITS | Clinical Summary ---
Author Organization [employer] Address [address] [place] [address] [address] [place] [address] Care Team Providers Care Asbestos Cloth Inspector Name Role Phone SusieRadhaAmna Primary Care Provider [phone] Allergies Active Allergy Reactions Criticality Noted Date [...] BY MOUTH EVERY MORNING 023 Active Creon 12316-14567 units capsule TAKE 1 CAPSULE BY MOUTH [...] complication, without long-term current use of insulin ([facility]) USE WITH INSULIN ONCE A DAY 100 each 12 023 Active Breo Ellipta 200-25 MCG/ACT aerosol powder Inhale 1 puff Once per day. Active GaviLyte-G 236 g solution PLEASE SEE [...] DEVICE ONE DOSE = 2 INHALATIONS Active predniSONE (Deltasone) 10 MG tablet Take 2 tablets by mouth Once per day. 024 Active triamcinolone (Kenalog) 0.1 % ointment Apply topically if needed in the morning and at bedtime for rash. 30 g 1 024 Active ergocalciferol (Vitamin D2) 1.25 MG (97493 UT) capsule TAKE 1 CAPSULE BY MOUTH [...] morning and at bedtime (itching). 10 mL 025 Active albuterol (2.5 MG/3ML) 0.083% nebulizer solutionIndicat ions:Cough in adult patient Take 3 mL (2.5 mg) by nebulization Every 4-6 hours as needed for wheezing. 75 mL 2 025 2025 Active Diclofenac Sodium 1 % gel Apply [...] by mouth at bedtime. 30 tablet 3 Active acetaminophen (Tylenol 8 Hour) 650 MG [...] EVERYDAY AT BEDTIME 90 tablet 1 Active nicotine (Nicoderm, Step 2) 14 MG/24HR patch Place 1 patch on the skin 1 (one) time each day at the same time. Active Varenicline Tartrate, Starter, 0.5 MG X 11 & 1 MG X 42 tablet therapy pack Take 1 0.5mg tab orally 1x daily x 3d, then 1 0.5mg tab 2x daily x 4d, then 1 1mg tab 2x daily. Active nicotine polacrilex (Nicorette) 2 MG gum CHEW 1 PIECE BUCCALLY EVERY 2 HOURS FOR 30 DAYS Active Misc. Devices (Pulse Oximeter Deluxe) miscIndications :Chronic obstructive pulmonary disease, unspecified COPD type (CMS/HCC) 1 each Once per day. 1 each Active losartan (Cozaar) 25 MG tablet TAKE 1 TABLET BY MOUTH EVERY DAY IN THE MORNING 90 tablet 1 Active hydroCHLOROthia zide 12.5 MG tablet TAKE 1 TABLET BY MOUTH EVERY DAY 90 tablet Active insulin glargine (Basaglar KwikPen) 100 UNIT/ML pen Inject 5 Units under the skin in the morning. 3 mL 2 025 2025 Active zafirlukast (Accolate) 20 MG tablet TAKE 1 TABLET BY MOUTH TWICE A DAY 180 tablet Active amLODIPine (Norvasc) 5 MG tabletIndicatio ns:Hypertension , unspecified type TAKE 1 TABLET BY MOUTH ONCE PER DAY. 90 tablet 1 Active Eliquis 5 MG tablet TAKE 1 TABLET BY MOUTH TWICE A DAY 60 tablet 1 Active baclofen (Lioresal) 20 MG tabletIndicatio ns:Muscle spasm TAKE 1 TABLET BY MOUTH EVERY DAY AT BEDTIME NEEDED FOR MUSCLE SPASM 30 tablet Active traMADol (Ultram) 50 MG tabletIndicatio ns:Chronic pain of right hand Take 1 tablet (50 mg) by mouth every 6 (six) hours if needed for severe pain for up to 7 days. 28 tablet 025 2024 Active amLODIPine (Norvasc) 5 MG tabletIndicatio ns:Hypertension , unspecified type TAKE 1 TABLET (5 MG) BY MOUTH ONCE PER DAY. 90 tablet 1 025 2024 Discontinued(R eoluzmaer (will not trigger notification to Pharmacy)) zafirlukast (Accolate) 20 MG tablet TAKE 1 TABLET BY MOUTH TWICE A DAY 180 tablet 025 2024 Discontinued Eliquis 5 MG tablet TAKE 1 TABLET BY MOUTH TWICE A DAY 60 tablet 1 025 2024 Discontinued baclofen (Lioresal) 20 MG tabletIndicatio ns:Muscle spasm TAKE 1 TABLET BY MOUTH EVERY DAY AT BEDTIME NEEDED FOR MUSCLE SPASM 30 tablet 025 2024 Discontinued traMADol (Ultram) 50 MG tabletIndicatio ns:Chronic pain of right hand Take 1 tablet (50 mg) by mouth every 6 (six) hours if needed for severe pain for up to 7 days. 28 tablet 025 2024 Discontinued(R eorder (will not trigger notification to Pharmacy)) traMADol (Ultram) 50 MG tabletIndicatio ns:Chronic pain [...] of opiate analgesic 2023 Overview (11/12/2023): Last [employer] Agreement signed: 07/27/23 Medication: Tramadol 50mg Q6H [...] tramadol should be requested with ID code [id number] --pt states today he had morphine px [...] Patient was referred in the past to satellite installation technician for this. Will follow up in next visit with patient about this and if still present at next labs will consider to refer again -CBC including blood Smear ordered at last visit, not done labs yet Assessment & Plan (10/24/2022 5:04 AM EDT): Most likely 2/2 chronic steroid use? Patient was referred in the past to satellite installation technician for this. Will follow up in next visit with patient about this and if still present at next labs will consider to refer again -CBC including blood Smear ordered at last visit, not done labs yet Assessment & Plan (08/21/2022 2:34 PM EDT): Most likely 2/2 chronic steroid use? Patient was referred in the past to satellite installation technician for this. Will follow up in next visit with patient about this and if still present at next labs will consider to refer again -labs today including blood smear Assessment & Plan (07/21/2022 6:41 PM EDT): Most likely 2/2 chronic steroid use? Patient was referred in the past to satellite installation technician for this. Will follow up in next visit with patient about this and if still present at next labs will consider to refer again Assessment & Plan (07/12/2022 10:17 PM EDT): Most likely 2/2 chronic steroid use? Patient was referred in the past to satellite installation technician for this. Will follow up in next [...] (07/21/2022 6:50 PM EDT): Status post Tdap 2016 S/p [...] length about tobacco cessation -continue following w blow torch burner f lung ca screening ( as per in lung nodules problem) -start on chantix by blow torch burner Assessment & Plan (10/24/2022 5:08 AM EDT): [...] length about tobacco cessation -continue following w blow torch burner f lung ca screening ( as per [...] length about tobacco cessation -continue following w blow torch burner f lung ca screening ( as per [...] scarring of lung base -continue care w blow torch burner Assessment & Plan (10/23/2022 8:40 PM EDT): [...] scarring of lung base -continue care w blow torch burner Assessment & Plan (08/21/2022 2:28 PM EDT): [...] the patient to follow up with his blow torch burner about nodules and hx of tobacco smoking [...] the patient to follow up with his blow torch burner about nodules and hx of tobacco smoking Assessment & Plan (07/12/2022 9:58 PM EDT): Patient with multiple pulmonary nodules seen in previous CT scans including the last one. In one CT scan in 2018 he did have tree in bud nodules in [place]. Rec for bronchoscopy, per patient he never underwent any procedure. - I advised the patient to follow up with his blow torch burner about this. Chronic constipation 05/03/2022 Assessment & [...] -continue basal insulin- 10 HS -referred to technical rep----to eval x osteoporosis , DM and likely [place] syndrome that can explain pts physical features w large abdominal girth and decrease muscle mass in extremities -with normal liver and no peritoneal fluid in CT scan and abd US.---apt scheduled x 02/01/2023 at 10 am - Patient would like a body piercer -Following already -discussed about hypoglyecemic symptoms and to check CBGs in fasting and 2 h after biggest meal and bring at next visit readings -will refer to assistant secretary at future visit -referred to roof technician Assessment & Plan (10/24/2022 5:04 AM EDT): Hb1ac 10/2022 is 7.4 <-- 10.2 <-- - 9.2. Likely due to chronic steroid use. - Stop Farxiga 2 mo ago as possible cause of worsening balanitis - Continue Metformin 1 g BID. 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 that can explain pts physical features w large abdominal girth and decrease muscle mass in extremities -with normal liver and no peritoneal fluid in CT scan and abd US.---apt scheduled x 11/02/2022 at 9 am- - Patient would like a body piercer referral.-referred already -discussed about hypoglyecemic symptoms and to check CBGs in fasting and 2 h after biggest meal and bring at next visit readings -will refer to assistant secretary at future visit -referred to roof technician Assessment & Plan (08/21/2022 2:19 PM EDT): [...] u from 7 u HS -referred to technical rep----to eval x osteoporosis ,uncontrolled DM and 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 that can explain pts physical features w large abdominal girth and decrease muscle mass in extremities -with normal liver and no peritoneal fluid in CT scan.---apt scheduled x 11/02/2022 at 9 am--I told today this info to pt by phone - Patient would like a body piercer referral.-referred today -discussed about hypoglyecemic symptoms and to check CBGs in fasting and 2 h after biggest meal and bring at next visit readings -will refer to assistant secretary at future visit -referred today to roof technician -DM labs today in fasting Assessment & [...] lantus-pen instead of basaglar) -referred today to technical rep----to eval x osteoporosis ,uncontrolled DM and likely [place] syndrome that c an explain pts physical features w large abdominal girth and decrease muscle mass in extremities -with normal liver and no peritoneal fluid in CT scan. - Patient would like a body piercer referral. Will refer at next visit. -discussed about hypoglyecemic symptoms and to check CBGs [...] at next visit. - Will refer to technical rep at next appointment in 2 weeks. - Patient would like a body piercer referral. Will refer at next visit. Assessment [...] of inhalers. Advised patient to follow with blow torch burner for uncontrolled COPD. 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 - Will refer to endocrinology at [...] apt for HFU after is dc from [facility] 07/21/2022 10/11/2023 Assessment & Plan [...] Encounters Date Type Department Care Team Description 12/05/[address] [facility] [address] [place] [address] Amna Richards DO 12/02/[address] [facility] [address] [place] [address] Amna Richards DO Chronic pain of right hand (Primary Dx) 11/13/[address] [facility] [address] [facility] [address] Amna Richards DO Muscle spasm 11/11/2024 Telephone [facility] [address] [place] [address] Amna Richards DO 11/08/[address] [facility] [address] [place] [address] Amna Richards DO Hypertension, unspecified type 11/08/[address] [facility] [address] [place] [address] Corrine Vega MD Hypertension, unspecified type 11/07/2024 11:30 AM EDT Telemedicine [facility] [address] [place] [address] Ester Chatman, JACOB Long-term current use of opiate analgesic 11/07/[address] [facility] [address] [place] [address] Ester Chatman RN Chronic pain of right hand 11/07/2024 Travel 10/27/2024 11:30 AM EDT Office Visit [facility] [address] [place] [address] Amna Richards DO Type 2 diabetes mellitus without complication, without long-term current use of insulin ([facility]) (Primary Dx); Unintentional weight loss; Screening for colon cancer; Chronic pain of right hand 10/27/2024 Travel 10/23/[address] [facility] [address] [place] [address] Amna Richards DO Chart Prep 10/16/[address] [facility] [address] [place] [address] Amna Richards DO 10/16/[address] [facility] [address] [place] [address] Amna Richards DO Referral 10/14/2024 Patient Outreach [facility] [address] [place] [address] Amna Richards DO Care Coordination (C3 CM-W Denaeshelly Banda telephone call outreach) 10/09/2024 Refill [facility] [address] [place] [address] Amna Richards DO Muscle spasm 10/08/[address] [address] Amna Richards DO Nurse Triage 10/08/[address] [address] Amna Richards DO Long-term current use of opiate analgesic 10/07/2024 Patient Outreach [address] [address] Amna Richards DO Care Coordination (C3 CM-CHW Ginette Kaplanz telephone call outreach) 10/03/[address] [address] Amna Richards DO Chart Prep 09/26/2024 1:00 PM EDT Telemedicine [address] [address] Ester Chatman, RN Long-term current use of opiate analgesic 09/26/[address] [address] Ester Chatman, RN Long-term current use of opiate analgesic 09/26/2024 Travel 09/26/[address] [address] Amna Richards DO Nurse Triage 09/24/2024 6:20 PM EDT Office Visit [facility] [address] [place] [address] Bong Sahni MD Tinea pedis of right foot (Primary Dx) 09/24/2024 Travel 09/24/[address] [address] Amna Richards DO Nurse Triage 09/23/2024 Patient Outreach [address] [address] Amna Richards DO Care Coordination 09/23/2024 Patient Outreach [address] [address] Amna Richards DO Care Management (C3CM- Initial assessment/enrollment ) 09/17/[address] [address] Ester Chatman RN Clarify who ordered Oxygen 09/17/[address] [address] Amna Richards DO Long-term current use of opiate analgesic (Primary Dx) 09/11/[address] [address] Ester Chatman RN NCNS for [employer] RV appt ttoday; Letter mailed today for [employer] 09/09/[address] [address] Amna Richards DO 09/09/[address] [address] Linda Loya MD 09/08/[address] [address] Amna Richards DO Muscle spasm 09/05/2024 Patient Outreach [address] [address] Amna Richards DO from Last 3 Months Immunizations Immunization Administration Dates Next Due Influenza, IIV3, injectable [...] Sign Reading Time Taken Comments Blood Pressure 132/78 10/27/2024 11:56 AM EDT Pulse 89 10/27/2024 11:56 AM EDT Temperature 36.8 C (98.3 F) 10/27/2024 11:56 AM EDT Respiratory Rate 21 10/27/2024 11:56 AM EDT Oxygen Saturation 95% 10/27/2024 11:56 AM EDT Inhaled Oxygen Concentration - - Weight 69.9 kg (154 lb) 10/27/2024 11:56 AM EDT Height 170.2 cm (5' 7 ) 10/27/2024 11:56 AM EDT Body Mass Index 24.12 10/27/2024 11:56 AM EDT Plan of Treatment Upcoming Encounters Date Type Department Care Team (Late st Contact Info) Description 12/08/2024 1:30 PM EDT Clinical Support [facility] MEDIC[facility] [address] [place] [address] Ester Chatman, RN 03/06/2025 3:00 PM EST Office Visit [facility] OPTOMETRY [address] [place], [place] [phone] Edna Latham, OD [address] [place] [address] Health Maintenance Due Date Last Done Comments CT Colonography 1968 Colonoscopy 1968 Colorectal Cancer Screening 1968 FIT DNA/Cologuard 1968 FIT 1968 FOBT 1968 Sigmoidoscopy 1968 Diabetes: Foot Exam 02/20/1978 Eye Exam 02/20/1978 Hepatitis B Vaccines (1 of 3 - 19+ 3-dose series) 02/20/1987 Zoster Vaccines (1 of 2) 02/20/2018 Diabetes: Urine Protein Screening 12/02/2023 12/01/2022, 07/05/2021 Lipid Panel 12/02/2023 12/01/2022, 07/05/2021 Depression Monitoring 03/04/2024 09/03/2023, 024 COVID-19 Vaccine ( season) 2024 Influenza Vaccine (#1) 2024 02/23/2005, 2001 Diabetes: Hemoglobin A1C 01/27/2025 025, 06/02/2024, 05/16/2024, Additional history exists Alcohol/Substance Use Screening 05/16/2025 05/16/2024 SDOH Screening 05/16/2025 05/16/2024 Disability Screening 10/27/2025 10/27/2024 Tobacco Screening 10/27/2025 10/27/2024 DTaP/Tdap/Td Vaccines (3 - Td or Tdap) 08/29/2030 08/29/2020, 05/20/2015 RSV Patients and Patients Aged 60 years or older (1 - 1-dose 75+ series) 02/20/2043 Pneumococcal Vaccine: 50+ Years Completed 11/29/2022, 05/20/2015, 02/23/2005 Hepatitis C Screening Completed 12/01/2022, 022 HIV Screening Completed 10/28/2024, 11/17, 07/05/2021 HIB Vaccines Aged Out No longer eligi [...] Procedure Name Priority Date/Time Associated Diagnosis Comments BASIC METABOLIC PANEL Routine 10/28/2024 12:34 PM EDT Unintentional weight loss CBC WITH AUTO DIFFERENTIAL Routine 10/28/2024 12:34 PM EDT Unintentional weight loss HEPATIC FUNCTION PANEL Routine 10/28/2024 12:34 PM EDT Unintentional weight loss C-REACTIVE PROTEIN Routine 10/28/2024 12 :34 PM EDT Unintentional weight loss PSA, TOTAL Routine 10/28/2024 12:34 PM EDT Unintentional weight loss TSH Routine 10/28/2024 12:34 PM EDT Unintentional weight loss T-SPOT(R).TB Routine 10/28/2024 12:34 PM EDT Unintentional weight loss HIV 1/2 ANTIGEN/ANTIBODY, FOURTH GENERATION W/RFL Routine 10/28/2024 12:34 PM EDT Unintentional weight loss URINALYSIS, COMPLETE Routine 10/28/2024 12:34 PM EDT Unintentional weight loss SED RATE BY MODIFIED WESTERGREN Routine 10/28/2024 12:34 PM EDT Unintentional weight loss T4, FREE Routine 10/28/2024 12:34 PM EDT Unintentional weight loss PREALBUMIN Routine 10/28/2024 12:34 PM EDT Unintentional weight loss CULTURE, URINE, ROUTINE Routine 10/28/2024 12:34 PM EDT Unintentional weight loss POCT GLYCATED HEMOGLOBIN, TOTAL Routine 10/27/2024 12:01 PM EDT Type 2 diabetes mellitus without complication, without long-term current use of insulin (CMS/HCC) POCT GLUCOSE Routine 10/27/2024 11:57 AM EDT Type 2 diabetes mellitus without complication, without long-term current use of insulin (CMS/HCC) ALBUMIN, RANDOM URINE W/CREATININE Routine 12/01/2022 12:06 PM EDT HEPATITIS C AB W/REFL TO HCV RNA, QN, PCR Routine 12/01/2022 12:01 PM EDT Health care maintenance LIPID PANEL, STANDARD Routine 12/01/2022 12:01 PM EDT from Last 3 Months or Most Recently Relevant to Health Maintenance Results * T-SPOT??.TB (10/28/2024 12:34 PM EDT) Pathologist [facility] T Spot TB Negative Negative [facility] Comment:A negative test resu lt does not exclude the possibilityof exposure to or infection with Mycobacteriumtuberculosis (M. tuberculosis). Patients with recentexposure to TB infected individuals exhibiting anegative T-SPOT.TB result should be considered forretesting within 6 weeks or if other relevant clinicalsymptoms indicate. Results from T-SPOT.TB testing mustbe used in conjunction with each individual'sepidemiological history, current medical status,and results of other diagnostic evaluations.The T-SPOT.TB test is qualitative and results arereported as positive, borderline, or negative, giventhat the test controls perform as expected. In linewith the Centers for Disease Control and Prevention's2010 recommendation to report quantitative measurementsalongside the qualitative result, the laboratoryprovides spot counts for informational purposes only.The T-SPOT.TB test should not be interpreted as aquantitative test. TS PANEL A 0 [facility] TS PANEL B 0 [facility] Negative Control Passed [facility] Positive Control Passed [facility] Comment:For additional infor matanne marie, please refer tohttp://education.innocutis/faq/PGX864(This link is being provided for informational/educational purposes only.)THIS TEST WAS PERFORMED AT:[employer] [id number] [place] [address]OTVIYHMCHAZ COLÓN MD,PHD 10/28/2024 12:3 4 PM EDT 10/28/2024 5:45 PM EDT us Amna Richards DO LAB BLOOD ORDERABLES Final R esult [facility] [address] [place] [address] [phone] * (ABNORMAL) CBC auto differential (10/28/2024 12:34 PM EDT) [facility] White Blood Count 13.6(H) 4.8 - 10.8 X10*3/uL [facility] Red Blood Count 4.88 4.60 - 5.80 X10*6/uL [facility] Hemoglobin 14.8 14.0 - 18.0 g/dl [facility] Hematocrit 45.8 42.0 - 52.0 % [facility] Mean Corpuscular Volume 93.9 80.0 - 98.0 fL [facility] Mean Corpuscular Hemoglobin 30.3 27.0 - 33.0 pg [facility] Mean Corpuscular HGB Conc 32.3 31.0 - 36.0 g/dl [facility] Red Cell Distribution Width 14.4 11.0 - 16.0 % [facility] Platelet Count 421(H) 160 - 400 X10*3/uL [facility] Mean Platelet Volume 8.8(L) 9.4 - 12.4 fL [facility] Neutrophils Percent Auto 84.5(H) 45 - 73 % [facility] Imm Gran Pct Auto 1.0(H) 0.0 - 0.4 % [facility] Lymphocytes Percent Auto 6.8(L) 20 - 40 % [facility] Monocytes Percent Auto 6.6 2 - 11 % [facility] Eosinophils Percent Auto 0.4 0 - 4 % [facility] Basophils Percent Auto 0.7 0 - 2 % [facility] NRBC Pct Auto 0.0 0.0 - 0.2 /100WBC [facility] Neutrophils Absolute Auto 11.5(H) 2.0 - 8.3 x10*3/uL [facility] Imm Gran Abs Auto 0.14(H) 0.00 - 0.03 X10*3/uL [facility] Lymphocytes Absolute Auto 0.9(L) 1.2 - 4.9 X10*3/uL [facility] Monocytes Absolute Auto 0.9 0.1 - 1.2 X10*3/uL [facility] Eosinophils Absolute Auto 0.1 0.0 - 0.4 X10*3/uL [facility] Basophils Absolute Auto 0.1 0.0 - 0.2 X10*3/uL [facility] NRBC Abs Auto 0.000 0.0 - 0.012 X10*3/uL [facility] Blood Venous blood specimen / Unknown 10/28/2024 12:34 PM EDT 10/28/2024 5:45 PM EDT Amna Richards LAB BLOOD ORDERABLES Final R esult Performing Organization Address City/[facility]/ZIP Co de Phone Number [facility] [address] [place] [address] [phone] * HIV-1/2 Antigen and Antibodies, Fourth Generation, with Reflexes (10/28/2024 12:34 PM EDT) HIV AB/AG Nonreactive Nonreactive [facility] Comment:HIV-1 p24 Ag and/or HIV-1/HIV-2 Ab not detected.A test result that is nonreactive does not exclude thepossibility of exposure to or infection with HIV-1 and/orHIV-2. Nonreactive results in this assay for individualswith prior exposure to HIV-1 and/or HIV-2 may be due toantigen and antibody levels that are below the limit ofdetection of this assay.The Versus HIV Ag/Ab Combo assay result andsupplemental assay results should be interpreted inconjunction with the patient's clinical presentation,history and other laboratory results. If the results areinconsistent with clinical evidence, additional testing issuggested to confirm the result. Blood Venous blood specimen / Unknown 10/28/2024 12:34 PM EDT 10/28/2024 5:45 PM EDT Amna Gaxioladarío DO LAB BLOOD ORDERABLES Final R esult Performing Organization Address City/[facility]/ZIP Co de Phone Number [facility] [address] [place] [address] [phone] * (ABNORMAL) Urinalysis Complete (10/28/2024 12:34 PM EDT) Color Urine Yellow [facility] Appearance Urine Clear [facility] PH 6.0 5.0 - 9.0 [facility] Glucose Urine UA Negative Negative mg/dL [facility] Urine Blood Trace(A) Negative [facility] Specific [place] - Urine 1.015 1.005 - 1.025 [facility] Urine Protein Negative Neg-Trace mg/dL [facility] Urine Ketones Negative Negative mg/dL [facility] Nitrite Urine Negative Negative [facility] Leukocyte Esterase Urine Negative Negative [facility] RBC Urine 3-5(A) 0 - 2 /HPF [facility] Urine WBC 0-5 0 - 5 /HPF [facility] Urine Squamous Epithelial Cell 0-2 0 - 2 /HPF [facility] Urine Bacteria None Seen None Seen [facility] Hyaline Casts, Urine 0-2 0 - 2 /LPF [facility] Urine (Urine, Random) 10/28/2024 12:34 PM EDT 10/28/2024 4:02 PM EDT us Amna Richards DO LAB URINE ORDERABLES Final R esult Performing Organization Address City/[facility] Co de Phone Number [facility] [facility] [address] [place] [address] [phone] * Sed Rate by Modified Lalo (10/28/2024 12:34 PM EDT) Erythrocyte Sedimentation Rate 5 0 - 15 MM/HR [facility] Comment:Patients with polycy themia and many hemoglobin abnormalitiesmay have depressed sed rates whereas patients with anemiamay have elevated sed rates. Blood Venous blood specimen / Unknown 10/28/2024 12:34 PM EDT 10/28/2024 5:45 PM EDT us [employer]na [employer] LAB BLOOD ORDERABLES Final R esult Performing Organization Address City/[facility]/ZIP Co de Phone Number [facility] [address] [place] [phone] * Culture, Urine, Routine (10/28/2024 12:34 PM EDT) Urine Urine specimen obtained by clean catch procedure / Unknown 10/28/2024 12:34 PM EDT 10/29/2024 8:45 AM EDT Comment:UACC Narrative [facility] - 10/30/2024 10:32 AM EDT Urine Culture No growth. Specimen Source: Urine clean catch Amna Richards DO LAB MICROBIOLOGY - GENERAL O RDERABLES Final Result Performing Organization Address City/[facility]/ZIP Co de Phone Number [facility] [address] [place] [address] [phone] * C-reactive Protein (10/28/2024 12:34 PM EDT) C Reactive Protein 0.12 < or = 0.50 mg/dL [facility] Blood Venous blood specimen / Unknown 10/28/2024 12:34 PM EDT 10/28/2024 5:45 PM EDT Amna Richards DO LAB BLOOD ORDERABLES Final R esult Performing Organization Address [facility] Co de Phone Number [facility] [address] [place] [address] [phone] * TSH (10/28/2024 12:34 PM EDT) Thyroid Stimulating Hormone 0.55 0.32 - 4.0 uIU/mL [facility] Comment:TSH 3rd Generation ( [facility]) Blood Venous blood specimen / Unknown 10/28/2024 12:34 PM EDT 10/28/2024 5:45 PM EDT Amna Richards DO LAB BLOOD ORDERABLES Final R esult Performing Organization Address City/[facility]/ZIP Co de Phone Number [facility] [address] [place] [address] [phone] * T4, Free (10/28/2024 12:34 PM EDT) Free T4 (Free Thyroxine) 0.87 0.71 - 1.85 ng/dL [facility] Blood Venous blood specimen / Unknown 10/28/2024 12:34 PM EDT 10/28/2024 5:45 PM EDT Amna Richards DO LAB BLOOD ORDERABLES Final R esult [facility] [address] [place] [address] [phone] * PSA,Total (10/28/2024 12:34 PM EDT) Prostate Specific Antigen 1.19 <0.05 - 4.0 ng/mL [facility] Comment:PSA methodology: Bernardo Covington i ChemiluminescentMicroparticle Immunoassay (CMIA) Blood Venous blood specimen / Unknown 10/28/2024 12:34 PM EDT 10/28/2024 5:45 PM EDT Amna Richards DO LAB BLOOD ORDERABLES Final R esult Performing Organization Address [facility]/ZIP Co de Phone Number [facility] [address] [place] [address] [phone] * Prealbumin (10/28/2024 12:34 PM EDT) Prealbumin 24.0 20 - 40 mg/dL [facility] Blood Venous blood specimen / Unknown 10/28/2024 12:34 PM EDT 10/28/2024 5:45 PM EDT Amna Richards DO LAB BLOOD ORDERABLES Final R esult Performing Organization Address City/[facility]/ZIP Co de Phone Number [facility] [address] [place] [address] [phone] * Hepatic Function Panel (10/28/2024 12:34 PM EDT) Pathologist [facility] Bilirubin, Total 0.4 0.0 - 1.0 mg/dL [facility] Bilirubin, Direct 0.2 0.0 - 0.5 mg/dL [facility] Aspartate Amino Transferase 24 5 - 37 U/L [facility] Alanine Aminotransferase 17 0 - 40 U/L [facility] Total Protein 7.1 6.5 - 8.0 g/dL [facility] Albumin Level 4.3 3.5 - 5.0 g/dL [facility] Alkaline Phosphatase 63 39 - 117 U/L [facility] Blood Venous blood specimen / Unknown 10/28/2024 12:34 PM EDT 10/28/2024 5:45 PM EDT us Amna Richards DO LAB BLOOD ORDERABLES Final R esult [facility] [address] [place] [address] [phone] * (ABNORMAL) Basic Metabolic Panel (10/28/2024 12:34 PM EDT) [facility] Sodium 141 135 - 145 mmol/L [facility] Potassium 3.8 3.3 - 5.1 mmol/L [facility] Chloride 99 96 - 108 mmol/L [facility] Carbon Dioxide 32(H) 22 - 29 mmol/L [facility] Anion Gap 14 12 - 20 [facility] Urea Nitrogen (BUN) 12 9 - 16 mg/dL [facility] Creatinine, Serum 0.69 0.5 - 1.4 mg/dL [facility] Estimated Glomerular Filt Rate >60 [facility] Comment:Chronic Kidney Disea se: Estimated GFR < 60 mL/min/1.90g5Cmfnxr Kidney Disease: Estimated GFR < 15 mL/min/1.73m2 Glucose 226(H) 60 - 115 mg/dL [facility] Calcium 10.4(H) 8.4 - 10.2 mg/dL [facility] Blood Venous blood specimen / Unknown 10/28/2024 12:34 PM EDT 10/28/2024 5:45 PM EDT Amna Susie DO LAB BLOOD ORDERABLES Final R esult [facility] [address] [place] [address] [phone] * (ABNORMAL) POCT HGB A1C (10/27/2024 12:01 PM EDT) Hemoglobin A1C 7.8(A) 4.0 - 5.7 % QC Media Lot # [id number] Lot# Expiration Date Blood 10/27/2024 12:0 1 PM EDT Amna Gaxioladarío DO POINT OF CARE TEST ENTER/LOU T ORDERABLES Final Result * (ABNORMAL) POCT Glucose (10/27/2024 11:57 AM EDT) Glucose Blood, POC 276(A) 60 - 200 mg/dL [employer] Lot # [id number] Lot# Expiration Date Blood Capillary blood specimen / Unknown 10/27/2024 11:57 AM EDT Amna Richards DO POINT OF CARE TEST ENTER/LOU T ORDERABLES Final Result * (ABNORMAL) Albumin, Random Urine W/Creatinine (12/01/2022 12:06 PM EDT) Creatinine, Urine 134.93 mg/dL [facility] Microalbumin Urine 71.0 mg/L [facility] Microalbum Creatinine Ratio Ur 52.6(H) <30 ug/mg cr [facility] Comment:Albumin/Creatinine R atio Reference Ranges: Normal: < 30 ug/mg creatinine Microalbuminuria: 30 - 300 ug/mg creatinineClinical Albuminuria: > 300 ug/mg creatinine 12/01/2022 12:0 6 PM EDT 12/01/2022 2:44 PM EDT Candace Palmer MD LAB URINE ORDERAB LES Final Result Performing Organization Address City/[facility]/ZIP Co de Phone Number [facility] [address] [place] [phone] * Hepatitis C Antibody with Reflex to HCV, RNA, Quantitative, Real-Time PCR (12/01/2022 12:01 PM EDT) Hepatitis C Antibody Nonreactive Nonreactive [facility] Comment:Antibodies to HCV no t detected; does not exclude early acuteHCV infection. Blood Venous blood specimen / Unknown 12/01/2022 12:01 PM EDT 12/01/2022 2:52 PM EDT us Candace Palmer MD LAB BLOOD ORDERAB LES Final Result Performing Organization Address City/[facility]/ZIP Co de Phone Number [facility] [address] [place] [phone] * (ABNORMAL) Lipid Panel, Standard (12/01/2022 12:01 PM EDT) Triglycerides 79 <150 mg/dL [facility] Comment:Desirable Triglyceri de: less than 150 mg/dLBorderline High Triglyceride 150-199 mg/dLHigh Triglyceride: 200-499 mg/dLVery High Triglyceride: greater than or equal to 5OO mg/dL Cholesterol 178 <200 mg/dL [facility] Comment:Desirable Cholestero l: less than 200 mg/dLBorderline High Cholesterol: 200-239 mg/dLHigh Cholesterol: greater than 239 mg/dL LDL Cholesterol Calculated 100(H) <100 mg/dL [facility] Comment:Desirable LDL: less than 100 mg/dLNear Optimal/Above Optimal LDL: 110- 129 mg/dLBorderline High LDL: 130-159 mg/dLHigh LDL: 160-189 mg/dLVery High LDL: greater than or equal to 190 mg/dL HDL Cholesterol 63 >40 mg/dL [facility] Comment:Desirable HDL: great er than 40 mg/dL Note: This HDL assay may give artificially low results in patients with liver disease. 12/01/2022 12:0 1 PM EDT 12/01/2022 2:52 PM EDT Candace Palmer MD LAB BLOOD ORDERAB LES Final Result [facility] [address] [place] [phone] from Last 3 Months or Most Recently Relevant to Health Maintenance Insurance [facility] C3 Care Teams Asbestos Cloth Inspector Relationship Specialty Start Date End Date Amna Richards DO [address] [place] [address] PCP - General Family Medicine 10/12/23 [facility] 05/08/24
--- OUTSIDE RECORDS SUMMARY | 2024-12-05 14:16 | XMS_ITS | Encounter Summary ---
Author Organization [employer] Address [address] [place] [address] 7 [place] [address] Care Team Providers Care Computer Applications Developer Name Role Phone Candace Quiñones MD Primary Care Pro vider Amna Richards DO Primary Care Provider + [phone] Reason for Visit * Reason Onset Date Comments Appointment Request 11/21/2022 Encounter Details Date Type Department Care Team ([facility] st Contact Info) Description 11/21/[address] [facility] MEDICINE [address] [place] [address] Candace Quiñones MD [address] [place] [address] Appointment Request Social History Tobacco Use Types [...] Description 12/08/2024 1:30 PM EDT Clinical Support [facility] [address] [place] [address] Ester Chatman, JACOB 03/06/2025 3:00 PM EST Office Visit [facility] OPTOMETRY [address] [place], [place] [phone] Edna Latham, OD [address] [place], [place] [phone] documented as of this encounter Visit Diagnoses Not on filedocumented in this encounter Additional Health Concerns Assessment Noted Time PHQ-9 Depression Total Score: 11 023 3:01 PM EDT documented as of this encounter Care Teams Computer Applications Developer Relationship Specialty Start Date End Date Candace Quiñones MD [address] [place], [place] [phone] PCP - General Internal Medicine 07/24/22 10/11/23 Amna Richards DO [address] [place] [address] [phone] PCP - General Family Medicine 10/12/23 [facility] 05/08/24 documented as of this encounter
--- OUTSIDE RECORDS SUMMARY | 2024-12-05 14:16 | XMS_ITS | Encounter Summary ---
Author Organization [employer] Address [address] [place] [address] 7 [place] [address] Care Team Providers Care Stock Speculator Name Role Phone Candace Quiñones MD Primary Care Pro vider Amna Richards DO Primary Care Provider + [phone] Encounter Details Date Type Department Care Team (Late st Contact Info) Description 09/13/[address] [facility] MEDICINE [address] [place] [address] Candace Quiñones MD [address] [place] [address] Social History Tobacco Use Types Packs/Day Years [...] Description 12/08/2024 1:30 PM EDT Clinical [address] [facility] [address] [place] [address] Ester Chatman RN 03/06/2025 3:00 PM EST Office Visit [facility] OPTOMETRY [address] [place], [place] [phone] Edna Latham, OD [address] [place] [address] documented as of this encounter Visit Diagnoses Not on filedocumented in this encounter Additional Health Concerns Assessment Noted Time PHQ-9 Depression Total Score: 11 024 1:53 PM EDT documented as of this encounter Care Teams Stock Speculator Relationship Specialty Start Date End Date Candace Quiñones MD [address] [place] [address] PCP - General Internal Medicine 07/24/22 10/11/23 Amna Richards DO [address] [place] [address] PCP - General Family Medicine 10/12/23 [facility] 05/08/24 documented as of this encounter
--- OUTSIDE RECORDS SUMMARY | 2024-12-05 14:16 | XMS_ITS | Encounter Summary ---
Author Organization [employer] Address [address] [place] [address] 7t [place] [address] Care Team Providers Care Ironworker Machine Operator Name Role Phone Candace Quiñones MD Primary Care Pro vider Amna Richards DO Primary Care Provider + [phone] Reason for Visit * Reason Onset Date Comments office notes and PFT 06/04/2023 Encounter Details Date Type Department Care Team (Late st Contact Info) Description 06/04/2023 Telephone [facility] MEDICINE [address] [place] [address] Candace Quiñones MD [address] [place], [place] [phone] office notes and PFT Social History Tobacco [...] Description 12/08/2024 1:30 PM EDT Clinical Support [facility] [address] [place] [address] Ester Chatman RN 03/06/2025 3:00 PM EST Office Visit [facility] OPTOMETRY [address] [place], [place] [phone] Edna Latham OD [address] [place] [address] documented as of this encounter Visit Diagnoses Not on filedocumented in this encounter Additional Health Concerns Assessment Noted Time PHQ-9 Depression Total Score: 11 023 3:01 PM EDT documented as of this encounter Care Teams Ironworker Machine Operator Relationship Specialty Start Date End Date Candace Quiñones MD [address] [place] [address] PCP - General Internal Medicine 07/24/22 10/11/23 Amna Richards DO [address] [place] [address] PCP - General Family Medicine 10/12/23 [facility] 05/08/24 documented as of this encounter
--- OUTSIDE RECORDS SUMMARY | 2024-12-05 14:16 | XMS_ITS | Encounter Summary ---
Author Organization [employer] Address [address] [place] [address] 7t [place] [address] Care Team Providers Care Gauge Operator Name Role Phone Candace Quiñones MD Primary Care Pro vider Amna Richards DO Primary Care Provider + [phone] Reason for Visit * Reason Onset Date Comments Med Refill 03/20/2023 Encounter Details Date Type Department Care Team ([facility] st Contact Info) Description 03/20/2023 Telephone [facility] MEDICINE [address] [place] [address] Candace Quiñones MD [address] [place] [address] Med Refill Social History Tobacco Use Types [...] 50 MG tablet To be sent to: [facility]/pharmacy #[id number] documented in this encounter Plan of Treatment Upcoming Encounters Date Type Department Care Team (Late st Contact Info) Description 12/08/2024 1:30 PM EDT Clinical Support [facility] MEDICINE [address] [place] [address] Ester Chatman, RN 03/06/2025 3:00 PM EST Office Visit [facility] OPTOMETRY [address] [place] [address] Edna Latham OD [address] [place] [address] documented as of this encounter Visit Diagnoses Not on filedocumented in this encounter Additional Health Concerns Assessment Noted Time PHQ-9 Depression Total Score: 11 023 3:01 PM EDT documented as of this encounter Care Teams Gauge Operator Relationship Specialty Start Date End Date Candace Quiñones MD [address] [place] [address] PCP - General Internal Medicine 07/24/22 10/11/23 Amna iRchards DO [address] [place], [place] [phone] PCP - General Family Medicine 10/12/23 [facility] 05/08/24 documented as of this encounter
--- OUTSIDE RECORDS SUMMARY | 2024-12-05 14:16 | XMS_ITS | Encounter Summary ---
Author Organization [employer] Address [address] [place] [address] [place] [address] Care Team Providers Care Sugar House Supervisor Name Role Phone Amna Richards DO Primary Care Provider + [phone] Amna Richards DO Primary Care Provider [phone] Candace Quiñones MD Primary Care Pro vider Amna Richards DO Primary Care Provider + [phone] Reason for Visit * Reason Onset Date Comments Med Refill 06/15/2022 Encounter Details Date Type Department Care Team (Late st Contact Info) Description 06/15/2022 Telephone [facility] MEDICINE [address] [place], [place] [phone] Amna Richards DO [address] [place], [place] [phone] Med Refill Social History Tobacco Use Types [...] States if it can be sent to [facility] pharmacy due to cvc not having them in stock at this time . Pt also informed if tablets can be the [place] . documented in this encounter Plan of Treatment Upcoming Encounters Date Type Department Care Team (Late st Contact Info) Description 12/08/2024 1:30 PM EDT Clinical Support [facility] MEDICINE [address] [place] [address] Ester Chatman RN 03/06/2025 3:00 PM EST Office Visit [facility] OPTOMETRY [address] [place] [address] Edna Latham OD [address] [place] [address] documented as of this encounter Visit Diagnoses Not on filedocumented in this encounter Additional Health Concerns Assessment Noted Time PHQ-9 Depression Total Score: 11 023 12:04 PM EST documented as of this encounter Care Teams Sugar House Supervisor Relationship Specialty Start Date End Date Amna Richards DO [address] [place] [address] PCP - General Family Medicine 03/19/18 07/20/22 Amna Richards DO [address] [place] [address] PCP - General Family Medicine 07/21/22 07/23/22 Candace Quiñones MD [address] [place] [address] PCP - General Internal Medicine 07/24/22 10/11/23 Amna Richards DO [address] [place] [address] PCP - General Family Medicine 10/12/23 [facility] 05/08/24 documented as of this encounter
--- OUTSIDE RECORDS SUMMARY | 2024-12-05 14:16 | XMS_ITS | Encounter Summary ---
Author Organization [employer] Address [address] [place] [address] 7t [place] [address] Care Team Providers Care Chairman Ceo Name Role Phone Amna Richards DO Primary Care Provider [phone] Reason for Visit * Reason Onset Date Comments Hospital Follow-up 06/23/2024 Encounter Details Date Type Department Care Team ([facility] st Contact Info) Description 06/23/2024 Telephone [facility] MEDICINE [address] [place], [place] [phone] Amna Richards DO [address] [place] [address] Hospital Follow-up Social History Tobacco Use Types [...] from pt requesting a HDF appt. Hospital: [facility] Date of admission: 06/16/2024 Discharge date: 06/18/2024 Diagnosed: COPD , Influenza A *Send message to [place] Clinical Care Coordinators documented in this encounter Plan of Treatment Upcoming Encounters Date Type Department Care Team (Late st Contact Info) Description 12/08/2024 1:30 PM EDT Clinical Support [facility] MEDICINE [address] [place] [address] Ester Chatman, RN 03/06/2025 3:00 PM EST Office Visit [facility] OPTOMETRY [address] [place] [address] Edna Latham, OD [address] [place] [address] documented as of this encounter Visit Diagnoses Not on filedocumented in this encounter Additional Health Concerns Assessment Noted Time PHQ-9 Depression Total Score: 11 024 1:53 PM EDT documented as of this encounter Care Teams Chairman Ceo Relationship Specialty Start Date End Date Amna Richards DO [address] [place] [address] PCP - General Family Medicine 10/12/23 [facility] 05/08/24 documented as of this encounter
--- OUTSIDE RECORDS SUMMARY | 2024-12-05 14:16 | XMS_ITS | Encounter Summary ---
Author Organization [employer] Address [address] [place] [address] 7 [place] [address] Care Team Providers Care Stock Grader Name Role Phone Candace Quiñones MD Primary Care Pro vider Amna Richards DO Primary Care Provider + [phone] Reason for Visit * Reason Onset Date Comments Appointment Request 05/09/2023 Encounter Details Date Type Department Care Team ([facility] Contact Info) Description 05/09/2023 Telephone [facility] MEDICINE [address] [place] [address] Candace Quiñones MD [address] [place] [address] Appointment Request Social History Tobacco Use Types [...] 12/08/2024 1:30 PM EDT Clinical Support [facility] MED[facility]INE [address] [place] [address] Ester Chatman RN 03/06/2025 3:00 PM EST Office Visit [facility] OPTOMETRY [address] [place] [address] Edna Latham, OD [address] [place] [address] documented as of this encounter Visit Diagnoses Not on filedocumented in this encounter Additional Health Concerns Assessment Noted Time PHQ-9 Depression Total Score: 11 023 3:01 PM EDT documented as of this encounter Care Teams Stock Grader Relationship Specialty Start Date End Date Candace Quiñones MD [address] [place] [address] PCP - General Internal Medicine 07/24/22 10/11/23 Amna Richards DO [address] [place] [address] PCP - General Family Medicine 10/12/23 [facility] 05/08/24 documented as of this encounter
--- OUTSIDE RECORDS SUMMARY | 2024-12-05 14:16 | XMS_ITS | Encounter Summary ---
Author Organization [employer] Address [address] [place] [address] [place] [address] Care Team Providers Care Farmworker Animal Name Role Phone Amna Richards DO Primary Care Provider + [phone] Amna Richards DO Primary Care Provider [phone] Candace Quiñones MD Primary Care Pro vider Amna Richards DO Primary Care Provider + [phone] Reason for Visit * Reason Onset Date Comments Appointment Request 07/12/2022 Encounter Details Date Type Department Care Team (Late st Contact Info) Description 07/12/2022 Telephone [facility] MEDICINE [address] [place], [place] [phone] Amna Richards DO [address] [place], [place] [phone] Appointment Request Social History Tobacco Use Types [...] lungs one month ago and seen at [facility]. Pe rpt went to [facility] ED last night after having coughing fit. Per pt states chestx-ray done and was sent home told has nothing wrong. Per pt having productive cough. Pt also havingpain in back and chest with coughing. Per pt also having wheezing. Pt was supposed to have ongoing treatment and follow up after [facility] Discharge. Pt never had HDF appt. Seen at [facility] ED last night. No meds prescribed per pt. Pt agrees to sick visit with Dr. Singer today at 2:15pm. active. Sent to team to obtain discharge notes for [facility] ED visit yesterday. Protocol Used: [...] accepted this outcome Please contact pt at [phone] Ukrainian Speaker documented in this encounter Plan of Treatment Upcoming Encounters Date Type Department Care Team ([facility] st Contact Info) Description 12/08/2024 1:30 PM EDT Clinical Support [facility] MED[facility]INE [address] [place] [address] Ester Chatman, JACOB 03/06/2025 3:00 PM EST Office Visit [facility] OPTOMETRY [address] [place], [place] [phone] Edna Latham, OD [address] [place] [address] documented as of this encounter Visit Diagnoses Not on filedocumented in this encounter Additional Health Concerns Assessment Noted Time PHQ-9 Depression Total Score: 13 023 11:01 AM EDT documented as of this encounter Care Teams Farmworker Animal Relationship Specialty Start Date End Date Amna Richards DO [address] [place] [address] PCP - General Family Medicine 03/19/18 07/20/22 Amna Richards DO [address] [place] [address] PCP - General Family Medicine 07/21/22 07/23/22 Candace Quiñones MD [address] [place] [address] PCP - General Internal Medicine 07/24/22 10/11/23 Amna Richards DO [address] [place] [address] PCP - General Family Medicine 10/12/23 [facility] 05/08/24 documented as of this encounter
--- OUTSIDE RECORDS SUMMARY | 2024-12-05 14:16 | XMS_ITS | Encounter Summary ---
Author Organization [employer] Address [address] [place] [address] 7 [place] [address] Care Team Providers Care Nougat Candy Maker Helper Name Role Phone Candace Quiñones MD Primary Care Pro vider Amna Richards DO Primary Care Provider + [phone] Reason for Visit * Reason Onset Date Comments Med Refill [employer] Services 07/11/2023 The patient call ed stating that his LONG CHAIN BEAMER has not been getting paid, because his PCP has not completed paperwork from [facility]. I informed him that there are no entries in his chart, stating that any paperwork was received by medical records. I provided him with the HIM Department's fax number, and he agreed to contact [facility] to have them fax any paperwork that needs to be reviewed and signed by his provider. Encounter Details Date Type Department Care Team (Late st Contact Info) Description 07/11/2023 Refill [facility] MEDICINE 230 [place], [place] [phone] Candace Quiñones MD 230 [place], [place] [phone] Social History Tobacco Use Types Packs/Day Years [...] EDT The patient called stating that his LONG CHAIN BEAMER has not been getting paid, because his PCP has not completed paperwork from [facility]. I informed him that there are no entries in his chart, stating that any paperwork was received by medical records. I provided him with the [facility] Department's fax number, and heagreed to contact [facility] to have them fax any paperwork that needs to be reviewed and signed by his provider. documented in this encounter Plan of Treatment Upcoming Encounters Date Type Department Care Team (Late st Contact Info) Description 12/08/2024 1:30 PM EDT Clinical Support [facility] MEDICINE 230 [place] [address] Ester Chatman RN 03/06/2025 3:00 PM EST Office Visit [facility] OPTOMETRY [address] [place], [place] [phone] Edna Latham, OD 267 [place] [address] documented as of this encounter Visit Diagnoses Not on filedocumented in this encounter Additional Health Concerns Assessment Noted Time PHQ-9 Depression Total Score: 11 023 3:01 PM EDT documented as of this encounter Care Teams Nougat Candy Maker Helper Relationship Specialty Start Date End Date Candace Quiñones MD 230 [place] [address] PCP - General Internal Medicine 07/24/22 10/11/23 Amna Richards DO [address] [place] [address] [phone] PCP - General Family Medicine 10/12/23 [facility] 05/08/24 documented as of this encounter
--- OUTSIDE RECORDS SUMMARY | 2024-12-05 14:16 | XMS_ITS | Encounter Summary ---
Author Organization [employer] Address [address] [place] [address] 7 [place] [address] Care Team Providers Care Cdl Truck Driver Name Role Phone Candace Quiñones MD Primary Care Pro vider Amna Richards DO Primary Care Provider + [phone] Reason for Visit * Reason Onset Date Comments Appointment Request 09/07/2022 Encounter Details Date Type Department Care Team ([facility] Contact Info) Description 09/07/2022 Telephone [facility] MEDICINE 230 [place] [address] Candace Quiñones MD 230 [place] [address] Appointment Request Social History Tobacco Use Types [...] requesting to r/s appt for 09/15/2022 for DIRECTOR OF DATABASE MARKETING. Pt states he had a recent surgery and cannot attend. Please contact pt at [phone] [place] Citizen Speaker documented in this encounter Plan of Treatment Upcoming Encounters Date Type Department Care Team (Late st Contact Info) Description 12/08/2024 1:30 PM EDT Clinical Support [facility] MEDICINE 230 [place] [address] Ester Chatman, RN 03/06/2025 3:00 PM EST Office Visit [facility] OPTOMETRY 267 [place], [place] [phone] Edna Latham OD 267 [place] [address] documented as of this encounter Visit Diagnoses Not on filedocumented in this encounter Additional Health Concerns Assessment Noted Time PHQ-9 Depression Total Score: 13 023 11:01 AM EDT documented as of this encounter Care Teams Cdl Truck Driver Relationship Specialty Start Date End Date Candace Quiñones MD 230 [place] [address] PCP - General Internal Medicine 07/24/22 10/11/23 Amna Richards DO [address] [place] [address] [phone] PCP - General Family Medicine 10/12/23 [facility] 05/08/24 documented as of this encounter
--- OUTSIDE RECORDS SUMMARY | 2024-12-05 14:16 | XMS_ITS | Encounter Summary ---
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 01/15/2402/2024 Encounter Details Date Type Department Care Team ([facility] st Contact Info) Description 01/29/2024 Telephone [facility] MEDICINE 230 [place] [address] Amna Richards DO 230 [place] [address] Reschedule PURCHASING DIRECTOR RV 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 01/15/24 Social [...] t he electric, gas, oil or water [employer] threatened to shut off services in your [...] Description 12/08/2024 1:30 PM EDT Clinical Support [facility] MEDICINE 230 [place] [address] Ester Chatman RN 03/06/2025 3:00 PM EST Office Visit [facility] OPTOMETRY [address] [place] [address] Edna Latham OD 267 [place] [address] documented as of this encounter Visit Diagnoses Not on filedocumented in this encounter Additional Health Concerns Assessment Noted Time PHQ-9 Depression Total Score: 11 09/02/ 024 1:53 PM EDT documented as of this encounter Care Teams Wound Care Nurse Relationship Specialty Start Date End Date Amna Richards DO [address] [place] [address] PCP - General Family Medicine 10/12/23 [facility] 05/08/24 documented as of this encounter
--- OUTSIDE RECORDS SUMMARY | 2024-12-05 14:16 | XMS_ITS | Encounter Summary ---
Author Organization [employer] Address [address] [place] [address] 7 [place] [address] Care Team Providers Care Winch Stripper Name Role Phone Candace Quiñones MD Primary Care Pro vider Amna Richards DO Primary Care Provider + [phone] Reason for Visit * Reason Onset Date Comments Appointment Request 12/21/2022 Encounter Details Date Type Department Care Team ([facility] st Contact Info) Description 12/21/2022 Telephone [facility] MEDICINE 230 [place] [address] Candace Quiñones MD 230 [place] [address] Appointment Request Social History Tobacco Use Types [...] EDT Tc from patient requesting to r/s 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 Details:DIRECTOR OF BUSINESS SYSTEMS [place]; utox Tramadol lab conf documented in this encounter Plan of Treatment Upcoming Encounters Date Type Department Care Team (Late st Contact Info) Description 12/08/2024 1:30 PM EDT Clinical Support [facility] MEDICINE 230 [place] [address] Ester Chatman, JACOB 03/06/2025 3:00 PM EST Office Visit [facility] OPTOMETRY 267 [place], [place] [phone] Edna Latham, OD 267 [place], [place] [phone] documented as of this encounter Visit Diagnoses Not on filedocumented in this encounter Additional Health Concerns Assessment Noted Time PHQ-9 Depression Total Score: 11 10/23/ 023 3:01 PM EDT documented as of this encounter Care Teams Winch Stripper Relationship Specialty Start Date End Date Candace Quiñones MD 230 [place] [address] PCP - General Internal Medicine 07/24/22 10/11/23 Amna Richards DO [address] [place] [address] PCP - General Family Medicine 10/12/23 [facility] 05/08/24 documented as of this encounter
--- OUTSIDE RECORDS SUMMARY | 2024-12-05 14:16 | XMS_ITS | Encounter Summary ---
Author Organization [employer] Address [address] [place] [address] 7t [place] [address] Care Team Providers Care Charge Weigher Name Role Phone Candace Quiñones MD Primary Care Pro vider Amna Richards DO Primary Care Provider + [phone] Reason for Visit * Reason Comments Med Change Request Encounter Details Date Type Department Care Team ([facility] st Contact Info) Description 08/21/2022 Refill [facility] MEDICINE 230 [place] [address] Candace Quiñones MD 230 [place] [address] Social History Tobacco Use Types Packs/Day Years [...] Description 12/08/2024 1:30 PM EDT Clinical Support [facility] MEDICINE 230 [place] [address] Ester Chatman, RN 03/06/2025 3:00 PM EST Office Visit [facility] OPTOMETRY 267 [place], [place] [phone] Edna Latham OD 267 [place] [address] documented as of this encounter Visit Diagnoses Not on filedocumented in this encounter Additional Health Concerns Assessment Noted Time PHQ-9 Depression Total Score: 13 023 11:01 AM EDT documented as of this encounter Care Teams Charge Weigher Relationship Specialty Start Date End Date Candace Quiñones MD [address] [place] [address] PCP - General Internal Medicine 07/24/22 10/11/23 Amna Richards DO [address] [place] [address] PCP - General Family Medicine 10/12/23 [facility] 05/08/24 documented as of this encounter
--- OUTSIDE RECORDS SUMMARY | 2024-12-05 14:16 | XMS_ITS | Encounter Summary ---
Author Organization [employer] Address [address] [place] [address] 7t [place] [address] Care Team Providers Care Actuarial Science Professor Name Role Phone Candace Quiñones MD Primary Care Pro vider Amna Richards DO Primary Care Provider + [phone] Reason for Visit * Reason Comments Med Refill Encounter Details Date Type Department Care Team (Late st Contact Info) Description 05/17/[address] [facility] MEDICINE 230 [place] [address] Candace Quiñones MD 230 [place] [address] Fracture of vertebra due to osteoporosis, sequela [...] 12/08/2024 1:30 PM EDT Clinical Support [facility] MEDICINE [address] [place] [address] Ester Chatman RN 03/06/2025 3:00 PM EST Office Visit [facility] OPTOMETRY 267 [place], [place] [phone] Edna Latham, OD 267 [place] [address] documented as of this encounter Visit Diagnoses Diagnosis Fracture of vertebra due to osteoporosis, sequela documented in this encounter Additional Health Concerns Assessment Noted Time PHQ-9 Depression Total Score: 11 023 3:01 PM EDT documented as of this encounter Care Teams Actuarial Science Professor Relationship Specialty Start Date End Date Candace Quiñones MD [address] [place] [address] PCP - General Internal Medicine 07/24/22 10/11/23 Amna Richards DO [address] [place] [address] PCP - General Family Medicine 10/12/23 [facility] 05/08/24 documented as of this encounter
--- OUTSIDE RECORDS SUMMARY | 2024-12-05 14:16 | XMS_ITS | Encounter Summary ---
Author Organization [employer] Address [address] [facility] 7t [place] [address] Care Team Providers Care Relay Shop Tester Name Role Phone Candace Quiñones MD Primary Care Pro vider Amna Richards DO Primary Care Provider + [phone] Encounter Details Date Type Department Care Team ([facility] st Contact Info) Description 02/28/2023 Orders Only [facility] 230 [place] [address] Brendon Davidson MD 230 [place] [address] Social History Tobacco Use Types Packs/Day Years [...] Clinical Support [facility] MEDICINE 230 [place] [address] Ester Chatman RN 03/06/2025 3:00 PM EST Office Visit [facility] OPTOMETRY 267 [place] [address] Edna Latham, OD 267 [place] [address] documented as of this encounter Procedures Procedure Name Priority Date/Time Associated Diagnosis Comments PROTEIN ELECTROPHORESIS AND KAPPA/LAMBDA LIGHT CHAINS, SERUM Routine 02/28/2023 9:10 AM EST IMMUNOFIXATION, URINE Routine 02/28/2023 9:10 AM EST TESTOSTERONE, FREE (DIALYSIS) AND TOTAL,MS Routine 02/28/2023 9:10 AM EST documented in this encounter Results * Testosterone, Free (Dialysis) And Total, MS (02/28/2023 9:10 AM EST) Pathologist [facility] [place] Testosterone, Total 494 250 - 1100 ng/dL [facility] Comment:For additional infor leora, please refer tohttp://education.[place]/faq/[email or web address](This link is being provided for informational/educational purposes only.)This test was developed and its analytical performancecharacteristics have been determined by [employer] [place], [place]. It hasnot been cleared or approved by the U.S. Food and DrugAdministration. This assay has been validated pursuantto the CLIA regulations and is used for clinicalpurposes. Testosterone, Free 65.7 35.0 - 155.0 pg/mL [facility] Comment:This test was develo ped and its analytical performancecharacteristics have been determined by [employer] [place], [place]. It hasnot been cleared or approved by the U.S. Food and DrugAdministration. This assay has been validated pursuantto the CLIA regulations and is used for clinicalpurposes.THIS TEST WAS PERFORMED AT:[employer] [place] [address]NRTSCAHCHAZ COLÓN MD,PHD 02/28/2023 9:10 AM EST 02/28/2023 9:22 AM EST us Generic External Data Provider LAB BLOOD ORDERAB LES Final Result [facility] [address] [place] [phone] * (ABNORMAL) Protein Electrophoresis and [place]/[employer] (02/28/2023 9:10 AM EST) Pathologist [facility] [place] Prot Elec - Total Protein 7.0 6.1 - 8.1 g/dL [facility] Prot Elec - Albumin 4.0 3.8 - 4.8 g/dL [facility] Prot Elec - Alpha1 0.4(A) 0.2 - 0.3 g/dL [facility] Prot Elec - Alpha2 0.9 0.5 - 0.9 g/dL [facility] Prot Elec - Beta 1 0.4 0.4 - 0.6 g/dL [facility] Prot Elec - Beta 2 0.5 0.2 - 0.5 g/dL [facility] Prot Elec - Gamma 0.8 0.8 - 1.7 g/dL [facility] PES - Abn Protein Band 1 TNP [facility] PES-Abn Protein Band 2 [facility] PES-Abn Protein Band 3 [facility] Prot Elec - Interpretation SEE NOTE [facility] Comment:Alpha-1 globulin inc rease noted.THIS TEST WAS PERFORMED AT:[employer] [place] [address]ZPSVQDEL BELL MD 02/28/2023 9:10 AM EST 02/28/2023 9:22 AM EST Generic External Data Provider LAB BLOOD ORDERAB LES Final Result Performing Organization Address [facility] Co de Phone Number [facility] [address] [place] [phone] * Immunofixation (MICHAEL), Urine (02/28/2023 9:10 AM EST) MICHAEL Interpretation [facility] Comment:No monoclonal protei ns detected.THIS TEST WAS PERFORMED AT:[employer] [place] [address]KHELZLYSSA BELL MD 02/28/2023 9:10 AM EST 02/28/2023 10:14 AM EST Generic External Data Provider LAB URINE ORDERAB LES Final Result Performing Organization Address [facility] Co de Phone Number [facility] [address] [place] [address] [phone] documented in this encounter Visit Diagnoses Not on filedocumented in this encounter Additional Health Concerns Assessment Noted Time PHQ-9 Depression Total Score: 11 10/23/ 023 3:01 PM EDT documented as of this encounter Care Teams Relay Shop Tester Relationship Specialty Start Date End Date Candace Quiñones MD 230 [place] [address] PCP - General Internal Medicine 07/24/22 10/11/23 Amna Richards DO 230 [place] [address] PCP - General Family Medicine 10/12/23 [facility] 05/08/24 documented as of this encounter
--- OUTSIDE RECORDS SUMMARY | 2024-12-05 14:16 | XMS_ITS | Encounter Summary ---
Author Organization [employer] Address [address] [place] [address] [place] [address] Care Team Providers Care Supervisor Lathing Name Role Phone Amna Richards DO Primary Care Provider + [phone] Amna Richards DO Primary Care Provider [phone] Candace Quiñones MD Primary Care Pro vider Amna Richards DO Primary Care Provider + [phone] Reason for Visit * Reason Onset Date Comments Med Refill 05/31/2022 Encounter Details Date Type Department Care Team (Late st Contact Info) Description 05/31/2022 Telephone [facility] MEDICINE 230 [place], [place] [phone] Amna Richards DO 230 [place], [place] [phone] Med Refill Social History Tobacco Use Types [...] for HDF outreach. Patient was admitted to [facility] on 06/08/2022 and was discharged on 06/08/2022 [...] Wednesdays, and Walk-In Urgent Care Located in [facility]. Patient provided with after-hours line for [facility], , which offer night time triage service and option to transfer to epic professional provider if needed. CC will request Discharge [...] Nebulizer medication. Albuterol Sulfate Please sent to [facility] [address] [facility] documented in this encounter Plan of Treatment Upcoming Encounters Date Type Department Care Team ([facility] st Contact Info) Description 12/08/2024 1:30 PM EDT Clinical Support [facility] 230 [place] [address] Ester Chatman, RN 03/06/2025 3:00 PM EST Office Visit [facility] OPTOMETRY 267 [place], [place] [phone] Edna Latham OD 267 [place], [place] [phone] documented as of this encounter Visit Diagnoses Not on filedocumented in this encounter Additional Health Concerns Assessment Noted Time PHQ-9 Depression Total Score: 11 023 12:04 PM EST documented as of this encounter Care Teams Supervisor Lathing Relationship Specialty Start Date End Date Amna Richards DO 230 [place], [place] [phone] PCP - General Family Medicine 03/19/18 07/20/22 Amna Richards DO 230 [place], [place] [phone] PCP - General Family Medicine 07/21/22 07/23/22 Candace Quiñones MD 230 [place], [place] [phone] PCP - General Internal Medicine 07/24/22 10/11/23 Amna Richards DO 230 [place], [place] [phone] PCP - General Family Medicine 10/12/23 [facility] 05/08/24 documented as of this encounter
--- OUTSIDE RECORDS SUMMARY | 2024-12-05 14:16 | XMS_ITS | Encounter Summary ---
Author Organization [employer] Address [address] [place] [address] 7t [place] [address] Care Team Providers Care Senior Consumer Insights Consultant Name Role Phone Amna Richards DO Primary Care Provider + [phone] Amna Richards DO Primary Care Provider [phone] Candace Quiñones MD Primary Care Pro vider Amna Richards DO Primary Care Provider + [phone] Reason for Visit * Reason Comments Med Refill Encounter Details Date Type Department Care Team (Late st Contact Info) Description 06/26/2022 Refill [facility] MEDICINE 230 [place], [place] [phone] Linda Loya MD 230 [place] [address] Severe persistent asthma with acute exacerbation Social [...] Description 12/08/2024 1:30 PM EDT Clinical Support [facility] MEDICINE 230 [place] [address] Ester Chatman, RN 03/06/2025 3:00 PM EST Office Visit [facility] OPTOMETRY 267 [place], [place] [phone] Edna Latham OD 267 [place] [address] documented as of this encounter Visit Diagnoses Diagnosis Severe persistent asthma with acute exacerbation documented in this encounter Additional Health Concerns Assessment Noted Time PHQ-9 Depression Total Score: 13 023 11:01 AM EDT documented as of this encounter Care Teams Senior Consumer Insights Consultant Relationship Specialty Start Date End Date Amna Richards DO 230 [place] [address] PCP - General Family Medicine 03/19/18 07/20/22 Amna Richards DO 230 [place] [address] PCP - General Family Medicine 07/21/22 07/23/22 Candace Quiñones MD 230 [place] [address] PCP - General Internal Medicine 07/24/22 10/11/23 Amna Richards DO [address] [place] [address] PCP - General Family Medicine 10/12/23 [facility] 05/08/24 documented as of this encounter
--- OUTSIDE RECORDS SUMMARY | 2024-12-05 14:16 | XMS_ITS | Encounter Summary ---
Author Organization [employer] Address [address] [place] [address] 7t [place] [address] Care Team Providers Care Scanner Operator Name Role Phone Candace Quiñones MD Primary Care Pro vider Amna Richards DO Primary Care Provider + [phone] Reason for Visit * Reason Comments Med Refill Encounter Details Date Type Department Care Team (Late st Contact Info) Description 11/17/2022 Refill [facility] MEDICINE 230 [place] [address] Candace Quiñones MD 230 [place] [address] Fracture of vertebra due to osteoporosis, sequela [...] Description 12/08/2024 1:30 PM EDT Clinical Support [facility] MEDICINE 230 [place] [address] Ester Chatman RN 03/06/2025 3:00 PM EST Office Visit [facility] OPTOMETRY 267 [place], [place] [phone] Edna Latham, OD 267 [place], [place] [phone] documented as of this encounter Visit Diagnoses Diagnosis Fracture of vertebra due to osteoporosis, sequela documented in this encounter Additional Health Concerns Assessment Noted Time PHQ-9 Depression Total Score: 11 023 3:01 PM EDT documented as of this encounter Care Teams Scanner Operator Relationship Specialty Start Date End Date Candace Quiñones MD 230 [place] [address] PCP - General Internal Medicine 07/24/22 10/11/23 Amna Richards DO [address] [place] [address] [phone] PCP - General Family Medicine 10/12/23 [facility] 05/08/24 documented as of this encounter
--- OUTSIDE RECORDS SUMMARY | 2024-12-05 14:16 | XMS_ITS | Encounter Summary ---
Author Organization [employer] Address [address] [place] [address] 7t [place] [address] Care Team Providers Care Adult Parole Officer Name Role Phone Elizabeth Richardsfer Primary Care Provider + [phone] Reason for Visit * Reason Comments Med Refill Encounter Details Date Type Department Care Team ([facility] st Contact Info) Description 04/20/2024 Refill [facility] 230 [place], [place] [phone] Bong Sahni MD 230 [place], [place] [phone] Bronchitis Social History Tobacco Use Types Packs/Day [...] Description 12/08/2024 1:30 PM EDT Clinical Support [facility] MEDICINE 230 [place] [address] Ester Chatman RN 03/06/2025 3:00 PM EST Office Visit [facility] OPTOMETRY [address] [place] [address] Edna Latham, OD [address] [place] [address] documented as of this encounter Visit Diagnoses Diagnosis Bronchitis Bronchitis, not specified as acute or chronic documented in this encounter Additional Health Concerns Assessment Noted Time PHQ-9 Depression Total Score: 11 024 1:53 PM EDT documented as of this encounter Care Teams Adult Parole Officer Relationship Specialty Start Date End Date Amna Richards DO 230 [place] [address] PCP - General Family Medicine 10/12/23 [facility] 05/08/24 documented as of this encounter
--- OUTSIDE RECORDS SUMMARY | 2024-12-05 14:16 | XMS_ITS | Encounter Summary ---
Author Organization [employer] Address [address] [place] [address] 7 [place] [address] Care Team Providers Care Hospital Ward Clerk Name Role Phone Candace Quiñones MD Primary Care Pro vider Amna Richards DO Primary Care Provider + [phone] Reason for Visit * Reason Onset Date Comments Medication Question 11/23/2022 Encounter Details Date Type Department Care Team ([facility] st Contact Info) Description 11/23/2022 Telephone [facility] [address] [place] [address] Candace Quiñones MD [address] [place] [address] Medication Question Social History Tobacco Use Types [...] Miscellaneous Notes * Telephone Encounter - Marni Rosa - 11/23/2022 4:07 PM EDT Tc from pt requesting to speak to someone regarding his traMADol (Ultram) 50 MG tablet . documented in this encounter Plan of Treatment Upcoming Encounters Date Type Department Care Team (Late st Contact Info) Description 12/08/2024 1:30 PM EDT Clinical Support [facility] [address] [place] [address] Ester Chatman, RN 03/06/2025 3:00 PM EST Office Visit [facility] [address] [place], [place] [phone] Edna Latham, OD [address] [place] [address] documented as of this encounter Visit Diagnoses Not on filedocumented in this encounter Additional Health Concerns Assessment Noted Time PHQ-9 Depression Total Score: 11 023 3:01 PM EDT documented as of this encounter Care Teams Hospital Ward Clerk Relationship Specialty Start Date End Date Candace Quiñones MD [address] [place] [id number] PCP - General Internal Medicine 07/24/22 10/11/23 Amna Richards DO [address] [place] [id number] PCP - General Family Medicine 10/12/23 [facility] 05/08/24 documented as of this encounter
--- OUTSIDE RECORDS SUMMARY | 2024-12-05 14:16 | XMS_ITS | Encounter Summary ---
Author Organization [employer] Address [address] [place] [address] 7[address] [place] [address] Care Team Providers Care Instructor Extension Work Name Role Phone Amna Richards DO Primary Care Provider + [phone] Reason for Visit * Reason Comments Med Refill Encounter Details Date Type Department Care Team ([facility] st Contact Info) Description 12/05/2024 Refill [facility] [address] [place] [address] Amna Richards DO [address] [place], [place] [phone] Social History Tobacco Use Types Packs/Day Years [...] 1:30 PM EDT Clinical Support [facility] [address] [place] [address] Ester Chatman RN 03/06/2025 3:00 PM EST Office Visit [facility] [address] [place] [address] Edna Latham, OD [address] [place] [address] documented as of this encounter Visit Diagnoses Not on filedocumented in this encounter Additional Health Concerns Assessment Noted Time PHQ-9 Depression Total Score: 11 024 1:53 PM EDT documented as of this encounter Care Teams Instructor Extension Work Relationship Specialty Start Date End Date Amna Richards DO [address] [place] [address] PCP - General Family Medicine 10/12/23 [facility] 05/08/24 documented as of this encounter
[2024-12-05 14:17] VITALS: BP 136/80; PULSE 91; O2SAT 97; BMI 25.1
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
== END 2024-12-05 14:49 | disposition home or self-care (01) ==
LOC: HO.HPS 14:13
PROVIDERS: PCP Student in an Organized Health Care Education/Training Program; Visit Provider Hospitalist
DX: J45.50 Severe persistent asthma, uncomplicated (principal); J98.11 Atelectasis; J44.1 Chronic obstructive pulmonary disease with (acute) exacerbation; F17.200 Nicotine dependence, unspecified, uncomplicated; E11.9 Type 2 diabetes mellitus without complications
CPT/HCPCS: 99214

== ENCOUNTER 2024-12-14 17:05 | Outpatient (REF) | payer MEDICAID, SELFPAY ==
--- OUTSIDE RECORDS SUMMARY | 2024-12-11 09:00 | XMS_ITS | Encounter Summary ---
Author Organization [employer] Address [address] [facility] [address]t [place] [address] Care Team Providers Care Stock Handler Name Role Phone SusieAmna Primary Care Provider [phone] Reason for Visit * Reason Comments CURRICULUM COACH RV Encounter Details Date Type Department Care Team (Latest Contact Info) Description 12/11/2024 9:00 AM EDT Clinical Support [facility] MEDICINE [address] [place] [address] Ester Chatman RN Long-term current use of opiate analgesic (Primary Dx) Social History Tobacco Use Types [...] as of this encounter Progress Notes * Ester Chatman RN - 12/11/2024 9:00 AM EDT SUBJECTIVE: Aldo Breaux is a 54 y.o. year old male who presents for CURRICULUM COACH RV Preferred language for medical information: Croatian Interpreted needed: Yes, staff member Karen Salazar provided interpretation Infant Toddler Lead Teacher service utilized: Aldo Breaux does report adherence to Tramadol (Ultram) 50 mg, take 1 tablet every 6 hours PRN, last refilled 12/03/2024. States he takes 3-4 doses a day. The patient last took Tramadol (Ultram) on: 12/11/2024 Medication is: 50% % effective at alleviating pain. OBJECTIVE: TELE RN checked: 12/11/2024 Pill count completed for Tramadol (Ultram), count today is 0 , anticipated count should be 0, this is as expected. Vital Signs Pain Score: 8 Pain Loc: Knee Pain Education: Yes Additional pain site: both knee's, shoulders, hands Last PCP visit: 10/27/2024 Controlled substance agreement signed: Controlled Substance Agreement 06/04/2024 CURRICULUM COACH Tier: 1 Current Medications[1] Smoking status: Yes, 1-2 cigarettes daily ETOH use: Denies Illicit substances: Denies Marijuana use: No Lab Results Component Value Date POCTHC Negative 12/11/2024 POCCOCAINEUR Negative 12/11/2024 POCOPIATEUR Negative 12/11/2024 DOAUR Negative 12/11/2024 POCAMPHETAMI Negative 12/11/2024 POCBENZODIUR Negative 12/11/2024 POCBARBSCRN Negative 12/11/2024 POCMETHADOUR Negative 12/11/2024 POCBUPSCRN Negative 12/11/2024 POCTCAUR Negative 12/11/2024 POCMDMAUR Negative 12/11/2024 POCOXYCODONE Negative 12/11/2024 POCPHENCYCUR Negative 12/11/2024 PROPOXUR Negative 12/11/2024 FENTANYLURIN Negative 12/11/2024 ASSESSMENT: Encounter Diagnosis Name Primary? Long-term current use of opiate analgesic Yes PLAN: Information on pain group given: Previously discussed Information on acupuncture given: Previously discussed Narcan education provided: Previously discussed Narcan prescription: active Lengthy time assisting patient to setup and utilize [employer] raysa for his medication refills. Will send request to PCP for Tramadol refill. Bony Breaux will continue taking medication as prescribed and follow up at the next CURRICULUM COACH visit orsooner if needed. Bony Saeid has verbalized understanding of care plan. Future Appointments Date Time Provider Department Center 12/11/2024 10:[address] [facility] 1 WALK-IN [facility] 01/08/2025 11:30 AM Ester Chatman RN MEDICINE [facility] 03/06/2025 3:00 PM Edna Latham, OD VISION [facility] Ester Chatman RN [1] Current Outpatient Medications: traMADol (Ultram) 50 MG tablet, Take 1 tablet (50 mg) by mouth every 6 (six) hours if needed for severe pain for up to 7 days., Disp: 28 tablet, Rfl: 0 acetaminophen (Tylenol 8 Hour) 650 MG ER tablet, Take 1 tablet (650 mg) by mouth every 8 (eight) hours if needed for mild pain. Do not crush, chew, or split., Disp: 60 tablet, Rfl: 1 albuterol (2.5 MG/3ML) 0.083% nebulizer solution, Take 3 mL (2.5 mg) by nebulization Every 4-6 hours as needed for wheezing., Disp: 75 mL, Rfl: 2 albuterol 108 (90 Base) MCG/ACT inhaler, Inhale 2 puffs every 6 (six) hours if needed for wheezing or shortness of breath., Disp: 18 g, Rfl: 0 Alcohol Sheets (Alcoh-Wipe) sheet, Test daily before all meals/snacks and once before bedtime., Disp: 1 each, Rfl: 0 alendronate (Fosamax) 70 MG tablet, TAKE 1 TAB BY MOUTH EVERY 7 DAYS TAKE IN THE MORNING WITH A FULL GLASS OF WATER, ON AN EMPTY STOMACH, AND DO NOT TAKE ANYTHING ELSE BY MOUTH OR LIE DOWN FOR THE NEXT 30 MIN, Disp: 12 tablet, Rfl: 1 amitriptyline (Elavil) 10 MG tablet, Take 1 tablet (10 mg) by mouth at bedtime., Disp: 30 tablet, Rfl: 3 amLODIPine (Norvasc) 5 MG tablet, TAKE 1 TABLET BY MOUTH ONCE PER DAY., Disp: 90 tablet, Rfl: 1 atorvastatin (Lipitor) 10 MG tablet, TAKE 1 TABLET BY MOUTH EVERYDAY AT BEDTIME, Disp: 90 tablet, Rfl: 1 baclofen (Lioresal) 20 MG tablet, TAKE 1 TABLET BY MOUTH EVERY DAY AT BEDTIME NEEDED FOR MUSCLE SPASM, Disp: 30 tablet, Rfl: 0 Bisacodyl EC 5 MG EC tablet, Take 10 mg by mouth at bedtime., Disp: , Rfl: Blood Pressure kit, 1 each 2 times daily., Disp: 1 kit, Rfl: 0 Breo Ellipta 200-25 MCG/ACT aerosol powder , Inhale 1 puff Once per day., Disp: , Rfl: buPROPion (Wellbutrin) 75 MG tablet, Take 150 mg by mouth 2 times daily., Disp: , Rfl: Creon 85415-39031 units capsule, TAKE 1 CAPSULE BY MOUTH 4 TIMES A DAY WITH MEALS OR SNACKS, Disp: , Rfl: Diclofenac Sodium 1 % gel, Apply 2 g topically if needed in the morning, at noon, in the evening, and at bedtime (pain)., Disp: 150 g, Rfl: 3 docusate sodium (Colace) 100 MG capsule, TAKE 1 CAPSULE BY MOUTH TWICE A DAY WITH FOOD, Disp: , Rfl: Eliquis 5 MG tablet, TAKE 1 TABLET BY MOUTH TWICE A DAY, Disp: 60 tablet, Rfl: 1 ergocalciferol (Vitamin D2) 1.25 MG (51949 UT) capsule, TAKE 1 CAPSULE BY MOUTH ONE TIME PER WEEK, Disp: 12 capsule, Rfl: 1 famotidine (Pepcid) 40 MG tablet, TAKE 1 TABLET BY MOUTH EVERYDAY AT BEDTIME, Disp: , Rfl: GaviLyte-G 236 g solution, PLEASE SEE ATTACHED FOR DETAILED DIRECTIONS, Disp: , Rfl: hydroCHLOROthiazide 12.5 MG tablet, TAKE 1 TABLET BY MOUTH EVERY DAY, Disp: 90 tablet, Rfl: 0 insulin glargine (Basaglar KwikPen) 100 UNIT/ML pen, Inject 5 Units under the skin in the morning.,Disp: 3 mL, Rfl: 2 insulin pen needle (B-D UF III MINI PEN NEEDLES) 31G x 5 mm misc, USE WITH INSULIN ONCE A DAY, Disp: 100 each, Rfl: 12 Ketotifen Fumarate (Alaway) 0.035 % solution, Administer 1 drop into affected eye(s) if needed in the morning and at bedtime (itching)., Disp: 10 mL, Rfl: 0 lidocaine (Lidoderm) 5 % patch, Apply 1-2 patches topically if needed each day for mild pain. Remove & discard patch within 12 hours or as directed by MD., Disp: 60 patch, Rfl: 3 Linzess 290 MCG capsule, TAKE 1 CAPSULE BY MOUTH EVERY MORNING, Disp: , Rfl: losartan (Cozaar) 25 MG tablet, TAKE 1 TABLET BY MOUTH EVERY DAY IN THE MORNING, Disp: 90 tablet, Rfl: 1 Misc. Devices (Pulse Oximeter Deluxe) misc, 1 each Once per day., Disp: 1 each, Rfl: 0 nicotine (Nicoderm, Step 2) 14 MG/24HR patch, Place 1 patch on the skin 1 (one) time each day at the same time., Disp: , Rfl: nicotine polacrilex (Nicorette) 2 MG gum, CHEW 1 PIECE BUCCALLY EVERY 2 HOURS FOR 30 DAYS, Disp: , Rfl: omeprazole (PriLOSEC) [address] capsule, Take 1 capsule by mouth 1 (one) time each day., Disp: , Rfl: predniSONE (Deltasone) 10 MG tablet, Take 2 tablets by mouth Once per day., Disp: , Rfl: Roflumilast 250 MCG tablet, Take 1 tablet by mouth in the morning., Disp: , Rfl: senna-docusate sodium (Senokot-S) 8.6-50 MG tablet, Take 2 tablets by mouth at bedtime., Disp: , Rfl: Simethicone Ultra Strength 180 MG capsule, TAKE 1 CAPSULE BY MOUTH FOUR TIMES A DAY AFTER MEALS, Disp: , Rfl: Spiriva HandiHaler 18 MCG inhalation capsule, 1 CAPSULE INHALED DAILY FOR 30 DAYS PUNCTURE 1 CAPSULE USING DEVICE ONE DOSE = 2 INHALATIONS, Disp: , Rfl: triamcinolone (Kenalog) 0.1 % ointment, Apply topically if needed in the morning and at bedtime forrash., Disp: 30 g, Rfl: 1 Varenicline Tartrate, Starter, 0.5 MG X 11 & 1 MG X 42 tablet therapy pack, Take 1 0.5mg tab orally 1x daily x 3d, then 1 0.5mg tab 2x daily x 4d, then 1 1mg tab 2x daily., Disp: , Rfl: Ventolin HFA 108 (90 Base) MCG/ACT inhaler, INHALE 2 PUFFS BY MOUTH EVERY 6 HOURS NEEDED SHORT OF BREATH, Disp: , Rfl: zafirlukast (Accolate) 20 MG tablet, TAKE 1 TABLET BY MOUTH TWICE A DAY, Disp: 180 tablet, Rfl: 0 documented in this encounter Plan of Treatment Upcoming Encounters Date Type Department Care Team (Late st Contact Info) Description 01/08/2025 11:30 AM EDT Clinical Support [facility] MEDICINE [address] [place] [address] Ester Chatman RN 03/06/2025 3:00 PM EST Office Visit [facility] OPTOMETRY [address] [place] [address] TarEdna crystal, OD [address] [place] [address] documented as of this encounter Procedures Procedure Name Priority Date/Time Associated Diagnosis Comments POCT GAURAV-14 URINE DRUG SCREEN Routine 12/11/2024 9:05 AM EDT Long-term current use of opiate analgesic documented in this encounter Results * POCT GAURAV-14 Urine Drug Screen (12/11/2024 9:05 AM EDT) THC Negative Negative Cocaine Screen, Urine Negative Negative Opiate Screen, Urine Negative Negative Methamphetamine Screen Urine Negative Negative Amphetamine Screen, Urine Negative Negative Benzodiazepines Screen, Urine Negative Negative Barbiturate Screen, Urine Negative Negative Methadone Screen, Urine Negative Negative Buprenophine Screen, Urine Negative Negative TCA, Urine Negative Negative MDMA Urine Negative Negative ng/mL Oxycodone Screen, Urine Negative Negative Phencyclidine (PCP), Urine Negative Negative Propoxyphene, Urine Negative Negative Fentanyl, Urine Negative Negative Urine Urine specimen obtained by clean catch procedure / Unknown 12/11/2024 9:05 AM EDT Ester Jones RN - 12/11/2024 9:05 AM EDT UTOX cup Lot#[id number] Exp. 12/23/25 Internal Pass Control Amna Richards DO POINT OF CARE TEST ENTER/LOU T ORDERABLES Final Result documented in this encounter Visit Diagnoses Diagnosis Long-term current use of opiate analgesic- Primary Encounter for long-term (current) use of other medications documented in this encounter Additional Health Concerns Assessment Noted Time PHQ-9 Depression Total Score: 11 024 1:53 PM EDT documented as of this encounter Care Teams Stock Handler Relationship Specialty Start Date End Date Amna Richards DO [address] [place] [id number] PCP - General Family Medicine 10/12/23 [facility] 05/08/24 documented as of this encounter
--- OUTSIDE RECORDS SUMMARY | 2024-12-11 10:00 | XMS_ITS | Encounter Summary ---
Author Organization [email or web address] Address [address] [place] [address] 7[address] [place] [address] Care Team Providers Care Estimator Lumber Name Role Phone Susie Amna Primary Care Provider + [phone] Reason for Visit * Reason Comments Headache Encounter Details Date Type Department Care Team ([facility] st Contact Info) Description 12/11/2024 10:00 AM EDT Office Visit [facility] [address] [place] [address] Bong Sahni MD [address] [place] [address] Strain of cervical portion of left trapezius muscle (Primary Dx) Social History Tobacco Use Types [...] Sign Reading Time Taken Comments Blood Pressure 145/88 12/11/2024 10:04 AM EDT Pulse 85 12/11/2024 10:04 AM EDT Temperature 36.7 C (98 F) 12/11/2024 10:04 AM EDT Respiratory Rate 18 12/11/2024 10:04 AM EDT Oxygen Saturation - - Inhaled Oxygen Concentration - - Weight 65.8 kg (145 lb) 12/11/2024 10:04 AM EDT Height 170.2 cm (5' 7 ) 12/11/2024 10:04 AM EDT Body Mass Index 22.71 12/11/2024 10:04 AM EDT documented in this encounter Progress Notes * Bong Sahni MD - 12/11/2024 10:00 AM EDT Subjective History was provided by the patient. Aldo Breaux is a 54 y.o. male who presents for evaluation of left-sided occipital and posterior neck for 1 week. Denies any trauma or fall. Denies any activity change or change in sleeping arrangement. Denies any focal weakness. Painful to turn his neck to the left side. Patient has chronic paindue to right hand pain, knee arthritis, and back pain with history of vertebral fracture. Currentlytaking Tramadol consistently. Also has Baclofen and Diclofenac topical on his medication list, but reports he has not been taking these medications. Objective Vitals: 12/11/24 1004 BP: (!) 145/88 BP Location: Left arm Patient Position: Sitting BP Cuff Size: Adult Pulse: 85 Resp: 18 Temp: 98 ??F (36.7 ??C) TempSrc: Temporal Weight: 145 lb (65.8 kg) Height: 5' 7 (1.702 m) Physical Exam Constitutional: General: He is not in acute distress. Appearance: Normal appearance. He is not ill-appearing, toxic-appearing or diaphoretic. HENT: Head: Normocephalic and atraumatic. Right Ear: External ear normal. Left Ear: External ear normal. Mouth/Throat: Pharynx: Oropharynx is clear. Eyes: Extraocular Movements: Extraocular movements intact. Conjunctiva/sclera: Conjunctivae normal. Neck: Comments: Tenderness of the upper fibers of left trapezius without hypertonicity or hypertrophy; increased tenderness with lateral rotation of his neck towards the left (no significant concerns with turning towards the right); negative Spurling's test bilaterally; bilateral shoulder ROM full without limitation or weakness Pulmonary: Effort: Pulmonary effort is normal. Musculoskeletal: Cervical back: Tenderness present. Lymphadenopathy: Cervical: No cervical adenopathy. Skin: General: Skin is warm and dry. Neurological: General: No focal deficit present. Mental Status: He is alert and oriented to person, place, and time. Psychiatric: Mood and Affect: Mood normal. Behavior: Behavior normal. Aldo was seen today for headache. Diagnoses and all orders for this visit: Strain of cervical portion of left trapezius muscle (Primary) - Diclofenac Sodium 1 % gel; Apply 2 g topically if needed in the morning, at noon, in the evening,and at bedtime (pain) for up to 10 days. - baclofen (Lioresal) 10 MG tablet; Take 1 tablet (10 mg) by mouth if needed in the morning, at noon, and at bedtime for muscle spasms for up to 10 days. Hold Baclofen 20mg at evening dose while on this medication Patient with a clinical presentation of left upper trapezius strain No clinical evidence of radiculopathy or impingement Denies any preceding trauma/injury No focal weakness Recommended warm compress TID Also recommended to use Baclofen 10mg TID prn (previously used 20mg at nighttime) Rx Diclofenac topical prn Advised to contact the clinic if no improvement of symptoms Indications for UC/ER use reviewed documented in this encounter Plan of Treatment Upcoming Encounters Date Type Department Care Team (Late st Contact Info) Description 01/08/2025 11:30 AM EDT Clinical Support [facility] [address] [place] [address] Ester Chatman RN 03/06/2025 3:00 PM EST Office Visit [facility] OPTOMETRY [address] [place] [address] Edna Latham, OD [address] [place] [address] documented as of this encounter Visit Diagnoses Diagnosis Strain of cervical portion of left trapezius muscle- Primary documented in this encounter Additional Health Concerns Assessment Noted Time PHQ-9 Depression Total Score: 11 09/02/ 024 1:53 PM EDT documented as of this encounter Care Teams Estimator Lumber Relationship Specialty Start Date End Date Amna Richards DO [address] [place] [address] PCP - General Family Medicine 10/12/23 [facility] 05/08/24 documented as of this encounter
[2024-12-15 18:16] LABS: Total Volume 24 Hour Urine 1850 mL
[2024-12-15 18:20] LABS: Creatinine, mg/dL 107.89
--- OUTSIDE RECORDS SUMMARY | 2024-12-15 18:32 | XMS_ITS | Encounter Summary ---
Author Organization [employer] Address [address] [place] [address] 7t [place] [address] Care Team Providers Care Tax Clerk Name Role Phone SusieAmna Primary Care Provider + [phone] Reason for Visit * Reason Onset Date Comments ROSELINE ANATOMIC PATHOLOGY ASSISTANT RV appt today 12/08/2024 Encounter Details Date Type Department Care Team ([facility] st Contact Info) Description 12/08/2024 Telephone [facility] MEDICINE [address] [place] [address] Ester Chatman RN [facility] ANATOMIC PATHOLOGY ASSISTANT RV appt today Social History Tobacco Use Types Packs/Day Years [...] Telephone Encounter - Ester Chatman RN - 12/10/2024 12:19 PM EDT Return TC via P/I#[id number], pt stated he missed his appointment 12/08/24 d/t he had the flu. Rescheduled ANATOMIC PATHOLOGY ASSISTANT appointment for 12/11/24 @ 9am. * Telephone Encounter - Theresa Banda - 12/10/2024 11:50 AM EDT Tc from pt retuning call, requesting the appointment Contact pt at [phone] Need cylinder machine operator pulp drier * Telephone Encounter - Ester Chatman RN - 12/08/2024 1:43 PM EDT Pt was a NC[facility] for ANATOMIC PATHOLOGY ASSISTANT RV appt today TC via P/I#[id number]/[id number], no answer. L/M asking him to call back to reschedule his appt missed today. documented in this encounter Plan of Treatment Upcoming Encounters Date Type Department Care Team (Late st Contact Info) Description 01/08/2025 11:30 AM EDT Clinical Support [facility] MEDICINE [address] [place] [address] Ester Chatman RN 03/06/2025 3:00 PM EST Office Visit [facility] OPTOMETRY [address] [place], [place] [phone] Edna Latham, OD [address] [place] [address] documented as of this encounter Visit Diagnoses Not on filedocumented in this encounter Additional Health Concerns Assessment Noted Time PHQ-9 Depression Total Score: 11 024 1:53 PM EDT documented as of this encounter Care Teams Tax Clerk Relationship Specialty Start Date End Date Amna Richards DO [address] [place] [address] PCP - General Family Medicine 10/12/23 [facility] 05/08/24 documented as of this encounter
--- OUTSIDE RECORDS SUMMARY | 2024-12-15 18:32 | XMS_ITS | Encounter Summary ---
Author Organization [employer] Address [address] [place] [address] 7t [place] [address] Care Team Providers Care Video Recorder Mechanic Name Role Phone Candace Quiñones MD Primary Care Pro vider Amna Richards DO Primary Care Provider + [phone] Reason for Visit * Reason Comments Med Refill Encounter Details Date Type Department Care Team (Late st Contact Info) Description 05/17/2023 Refill [facility] MEDICINE [address] [place] [address] Candace Quiñones MD [address] [place] [address] Fracture of vertebra due to osteoporosis, sequela [...] Description 01/08/2025 11:30 AM EDT Clinical Support [facility] MEDICINE [address] [place] [address] Ester Chatman RN 03/06/2025 3:00 PM EST Office Visit [facility] OPTOMETRY [address] [place], [place] [phone] Edna Latham, OD [address] [place] [address] documented as of this encounter Visit Diagnoses Diagnosis Fracture of vertebra due to osteoporosis, sequela documented in this encounter Additional Health Concerns Assessment Noted Time PHQ-9 Depression Total Score: 11 023 3:01 PM EDT documented as of this encounter Care Teams Video Recorder Mechanic Relationship Specialty Start Date End Date Candace Quiñones MD [address] [place] [address] PCP - General Internal Medicine 07/24/22 10/11/23 Amna Richards DO [address] [place] [address] PCP - General Family Medicine 10/12/23 [facility] 05/08/24 documented as of this encounter
--- OUTSIDE RECORDS SUMMARY | 2024-12-15 18:32 | XMS_ITS | Encounter Summary ---
Author Organization [employer] Address [address] [place] [address] [address] [place] [address] Care Team Providers Care Early Head Start Director Name Role Phone Candace Quiñones MD Primary Care Pro vider Amna Richards DO Primary Care Provider + [phone] Reason for Visit * Reason Onset Date Comments Appointment Request 05/09/2023 Encounter Details Date Type Department Care Team ([facility] Contact Info) Description 05/09/2023 Telephone [facility] MEDICINE [address] [place] [address] Candace Quiñones MD [address] [place] [address] Appointment Request Social History Tobacco Use Types [...] Description 01/08/2025 11:30 AM EDT Clinical Support [facility] MEDICINE [address] [place] [address] Ester Chatman RN 03/06/2025 3:00 PM EST Office Visit [facility] OPTOMETRY [address] [place] [address] Edna Latham, OD [address] [place] [address] documented as of this encounter Visit Diagnoses Not on filedocumented in this encounter Additional Health Concerns Assessment Noted Time PHQ-9 Depression Total Score: 11 023 3:01 PM EDT documented as of this encounter Care Teams Early Head Start Director Relationship Specialty Start Date End Date Candace Quiñones MD [address] [place] [address] PCP - General Internal Medicine 07/24/22 10/11/23 Amna Richards DO [address] [place] [address] PCP - General Family Medicine 10/12/23 [facility] 05/08/24 documented as of this encounter
--- OUTSIDE RECORDS SUMMARY | 2024-12-15 18:32 | XMS_ITS | Encounter Summary ---
Author Organization [employer] Address [address] [place] [address] [address]t [place] [address] Care Team Providers Care Alteration Inspector Name Role Phone Candace Quiñones MD Primary Care Pro vider Amna Richards DO Primary Care Provider + [phone] Reason for Visit * Reason Onset Date Comments office notes and PFT 06/04/2023 Encounter Details Date Type Department Care Team (Late st Contact Info) Description 06/04/2023 Telephone [facility] MEDICINE [address] [place] [address] Candace Quiñones MD [address] [place], [place] [phone] office notes and PFT Social History Tobacco [...] Description 01/08/2025 11:30 AM EDT Clinical Support [facility] MEDICINE [address] [place] [address] Ester Chatman RN 03/06/2025 3:00 PM EST Office Visit [facility] OPTOMETRY [address] [place], [place] [phone] Edna Latham OD [address] [place] [address] documented as of this encounter Visit Diagnoses Not on filedocumented in this encounter Additional Health Concerns Assessment Noted Time PHQ-9 Depression Total Score: 11 023 3:01 PM EDT documented as of this encounter Care Teams Alteration Inspector Relationship Specialty Start Date End Date Candace Quiñones MD [address] [place] [address] PCP - General Internal Medicine 07/24/22 10/11/23 Amna Richards DO [address] [place] [address] PCP - General Family Medicine 10/12/23 [facility] 05/08/24 documented as of this encounter
--- OUTSIDE RECORDS SUMMARY | 2024-12-15 18:32 | XMS_ITS | Clinical Summary ---
Author Organization [facility] Address [address] [place] [address] Care Team Providers Care Ui Software Engineer Name Role Phone MinorAmna chanel Philip CARABALLO Primary Care Provider [phone] Medical History Medical History Date Comments Tobacco [...] 5 season) 2024 Influenza Vaccine (#1) 2024 RSV Immunization Adult Patie nts (1 - 1-dose 75+ series) 02/20/2043 HIB Vaccines Aged Out No longer eligi [...] Documents on File Type Date Recorded Patient Typing Pool Supervisor Expl anation Health Care Decision (hx) 06/24/2017 AD MCCANN DIRECTIVE Health Care Decision (hx) 06/24/2017 AD MCCANN DIRECTIVE Health Care Decision (hx) 06/24/2017 AD MCCANN DIRECTIVE Health Care Decision (hx) 06/24/2017 AD MCCANN DIRECTIVE Health Care Decision (hx) 06/24/2017 AD MCCANN DIRECTIVE Care Teams Ui Software Engineer Relationship Specialty Start Date End Date Amna Richards DO [address] [place] [address] PCP - General Internal Medicine 06/20/17
--- OUTSIDE RECORDS SUMMARY | 2024-12-15 18:32 | XMS_ITS | Encounter Summary ---
Author Organization [employer] Address [address] [place] [address] [place] [address] Care Team Providers Care Elevator Conductor Name Role Phone Amna Richards DO Primary Care Provider + [phone] Amna Richards DO Primary Care Provider [phone] Candace Quiñones MD Primary Care Pro vider Amna Richards DO Primary Care Provider + [phone] Reason for Visit * Reason Onset Date Comments Appointment Request 07/12/2022 Encounter Details Date Type Department Care Team (Late st Contact Info) Description 07/12/2022 Telephone [facility] [address] [place], [place] [phone] Amna Richards DO 230 [place], [place] [phone] Appointment Request Social History Tobacco Use Types [...] lungs one month ago and seen at [facility]. Pe rpt went to [facility] last night after having coughing fit. Per pt states chestx-ray done and was sent home told has nothing wrong. Per pt having productive cough. Pt also havingpain in back and chest with coughing. Per pt also having wheezing. Pt was supposed to have ongoing treatment and follow up after [facility] Discharge. Pt never had HDF appt. Seen at [facility] ED last night. No meds prescribed per pt. Pt agrees to sick visit with Dr. Singer today at 2:15pm. active. Sent to team to obtain discharge notes for [facility] ED visit yesterday. Protocol Used: Asthma Attack [...] accepted this outcome Please contact pt at [phone] Khmer Speaker documented in this encounter Plan of Treatment Upcoming Encounters Date Type Department Care Team ([facility] st Contact Info) Description 01/08/2025 11:30 AM EDT Clinical Support [facility] [address] [place] [address] Ester Chatman, JACOB 03/06/2025 3:00 PM EST Office Visit [facility] [address] [place], [place] [phone] Edna Latham, OD 267 [place] [address] documented as of this encounter Visit Diagnoses Not on filedocumented in this encounter Additional Health Concerns Assessment Noted Time PHQ-9 Depression Total Score: 13 023 11:01 AM EDT documented as of this encounter Care Teams Elevator Conductor Relationship Specialty Start Date End Date Amna Richards DO [address] [place] [address] PCP - General Family Medicine 03/19/18 07/20/22 Amna Richards DO [address] [place] [address] PCP - General Family Medicine 07/21/22 07/23/22 Candace Quiñones MD [address] [place] [address] PCP - General Internal Medicine 07/24/22 10/11/23 Amna Richards DO [address] [place] [address] PCP - General Family Medicine 10/12/23 [facility] 05/08/24 documented as of this encounter
--- OUTSIDE RECORDS SUMMARY | 2024-12-15 18:32 | XMS_ITS | Encounter Summary ---
Author Organization [email or web address] Address [address] [facility] 7t [place] [address] Care Team Providers Care Title Abstractor Name Role Phone Candace Quiñones MD Primary Care Pro vider Amna Richards DO Primary Care Provider + [phone] Encounter Details Date Type Department Care Team ([facility] st Contact Info) Description 02/28/2023 Orders Only [facility] 230 [place] [address] Brendon Davidson MD 230 [place] [address] Social History Tobacco Use Types Packs/Day Years [...] Description 01/08/2025 11:30 AM EDT Clinical Support [facility] 230 [place] [address] Ester Chatman RN 03/06/2025 3:00 PM EST Office Visit [facility] 267 [place] [address] Edna Latham, OD [address] [place] [address] documented as of this encounter Procedures Procedure Name Priority Date/Time Associated Diagnosis Comments PROTEIN ELECTROPHORESIS AND KAPPA/LAMBDA LIGHT CHAINS, SERUM Routine 02/28/2023 9:10 AM EST IMMUNOFIXATION, URINE Routine 02/28/2023 9:10 AM EST TESTOSTERONE, FREE (DIALYSIS) AND TOTAL,MS Routine 02/28/2023 9:10 AM EST documented in this encounter Results * Testosterone, Free (Dialysis) And Total, MS (02/28/2023 9:10 AM EST) Pathologist [facility] Testosterone, Total 494 250 - 1100 ng/dL [facility] Comment:For additional infor leora, please refer tohttp://education.Glassful/faq/[email or web address](This link is being provided for informational/educational purposes only.)This test was developed and its analytical performancecharacteristics have been determined by [employer] [place]. It hasnot been cleared or approved by the U.S. Food and DrugAdministration. This assay has been validated pursuantto the CLIA regulations and is used for clinicalpurposes. Testosterone, Free 65.7 35.0 - 155.0 pg/mL [facility] Comment:This test was develo ped and its analytical performancecharacteristics have been determined by [employer] [place]. It hasnot been cleared or approved by the U.S. Food and DrugAdministration. This assay has been validated pursuantto the CLIA regulations and is used for clinicalpurposes.THIS TEST WAS PERFORMED AT:[id number] [place] [address]BJZHNQJCHAZ COLÓN MD,PHD 02/28/2023 9:10 AM EST 02/28/2023 9:22 AM EST us Generic External Data Provider LAB BLOOD ORDERAB LES Final Result [facility] [address] [place] [phone] * (ABNORMAL) Protein Electrophoresis and Krupp/Lambda Light Chains (02/28/2023 9:10 AM EST) Pathologist [facility] Prot Elec - Total Protein 7.0 6.1 - 8.1 g/dL [facility] Prot Elec - Albumin 4.0 3.8 - 4.8 g/dL [facility] Prot Elec - Alpha1 0.4(A) 0.2 - 0.3 g/dL [facility] Prot Elec - Alpha2 0.9 0.5 - 0.9 g/dL [facility] Prot Elec - Beta 1 0.4 0.4 - 0.6 g/dL [facility] Prot Elec - Beta 2 0.5 0.2 - 0.5 g/dL [facility] Prot Elec - Gamma 0.8 0.8 - 1.7 g/dL [facility] PES - Abn Protein Band 1 TNP [facility] PES-Abn Protein Band 2 [facility] PES-Abn Protein Band 3 [facility] Prot Elec - Interpretation SEE NOTE [facility] Comment:Alpha-1 globulin inc rease noted.THIS TEST WAS PERFORMED AT:[email or web address] [place] [address]HRAOODEL BELL MD 02/28/2023 9:10 AM EST 02/28/2023 9:22 AM EST Generic External Data Provider LAB BLOOD ORDERAB LES Final Result Performing Organization Address [facility] Co de Phone Number [facility] [address] [place] [phone] * Immunofixation (MICHAEL), Urine (02/28/2023 9:10 AM EST) MICHAEL Interpretation [facility] Comment:No monoclonal protei ns detected.THIS TEST WAS PERFORMED AT:[email or web address] [place] [address]KDBKGLYSSA BELL MD 02/28/2023 9:10 AM EST 02/28/2023 10:14 AM EST Generic External Data Provider LAB URINE ORDERAB LES Final Result Performing Organization Address [facility] Co de Phone Number [facility] [address] [place] [phone] [phone] documented in this encounter Visit Diagnoses Not on filedocumented in this encounter Additional Health Concerns Assessment Noted Time PHQ-9 Depression Total Score: 11 10/23/ 023 3:01 PM EDT documented as of this encounter Care Teams Title Abstractor Relationship Specialty Start Date End Date Candace Quiñones MD 230 [place] [address] PCP - General Internal Medicine 07/24/22 10/11/23 Amna Richards DO 230 [place] [address] PCP - General Family Medicine 10/12/23 [facility] 05/08/24 documented as of this encounter
--- OUTSIDE RECORDS SUMMARY | 2024-12-15 18:32 | XMS_ITS | Encounter Summary ---
Author Organization [employer] Address [address] [place] [address] 7t [place] [address] Care Team Providers Care Senior Hydrogeologist Name Role Phone Elizabeth Richardsfer Primary Care Provider + [phone] Reason for Visit * Reason Comments Med Refill Encounter Details Date Type Department Care Team ([facility] st Contact Info) Description 04/20/2024 Refill [facility] 230 [place], [place] [phone] Bong Sahni MD 230 [place], [place] [phone] Bronchitis Social History Tobacco Use Types Packs/Day [...] Description 01/08/2025 11:30 AM EDT Clinical Support [facility] 230 [place] [address] Ester Chatman, JACOB 03/06/2025 3:00 PM EST Office Visit [facility] [address] [place] [address] Edna Latham, OD [address] [place] [address] documented as of this encounter Visit Diagnoses Diagnosis Bronchitis Bronchitis, not specified as acute or chronic documented in this encounter Additional Health Concerns Assessment Noted Time PHQ-9 Depression Total Score: 11 024 1:53 PM EDT documented as of this encounter Care Teams Senior Hydrogeologist Relationship Specialty Start Date End Date Amna Richards DO 230 [place] [address] PCP - General Family Medicine 10/12/23 [facility] 05/08/24 documented as of this encounter
--- OUTSIDE RECORDS SUMMARY | 2024-12-15 18:32 | XMS_ITS | Encounter Summary ---
Author Organization [employer] Address [address] [place] [address] 7t [place] [address] Care Team Providers Care Supervisor Yard Name Role Phone Amna Richards DO Primary Care Provider [phone] Encounter Details Date Type Department Care Team ([facility] st Contact Info) Description 05/01/2024 Telephone [facility] [address] [place] [address] Amna Richards DO [address] [place] [address] Social History Tobacco Use Types Packs/Day Years [...] Description 01/08/2025 11:30 AM EDT Clinical Support [facility] [address] [place] [address] Ester Chatman, RN 03/06/2025 3:00 PM EST Office Visit [facility] [address] [place], [place] [phone] Edna Latham OD 267 [place] [address] documented as of this encounter Visit Diagnoses Not on filedocumented in this encounter Additional Health Concerns Assessment Noted Time PHQ-9 Depression Total Score: 11 024 1:53 PM EDT documented as of this encounter Care Teams Supervisor Yard Relationship Specialty Start Date End Date Amna Richards DO 230 [place] [address] PCP - General Family Medicine 10/12/23 [facility] 05/08/24 documented as of this encounter
--- OUTSIDE RECORDS SUMMARY | 2024-12-15 18:32 | XMS_ITS | Encounter Summary ---
Author Organization [employer] Address [address] [facility] 7t [place] [address] Care Team Providers Care Financial Service Representative Name Role Phone SusieAmna Primary Care Provider [phone] Encounter Details Date Type Department Care Team (Latest Contact Info) Description 12/11/2024 Travel Social History Tobacco Use Types Packs/Day [...] Description 01/08/2025 11:30 AM EDT Clinical Support [facility] 230 [place] [address] Ester Chatman, RN 03/06/2025 3:00 PM EST Office Visit [facility] [address] [place] [address] Edna Latham, OD [address] [place] [address] documented as of this encounter Visit Diagnoses Not on filedocumented in this encounter Additional Health Concerns Assessment Noted Time PHQ-9 Depression Total Score: 11 024 1:53 PM EDT documented as of this encounter Care Teams Financial Service Representative Relationship Specialty Start Date End Date Amna Richards DO 230 [place] [address] PCP - General Family Medicine 10/12/23 [facility] 05/08/24 documented as of this encounter
--- OUTSIDE RECORDS SUMMARY | 2024-12-15 18:32 | XMS_ITS | Encounter Summary ---
Author Organization [employer] Address [address] [place] [address] 7t [place] [address] Care Team Providers Care Hooker Laster Name Role Phone Amna Richards DO Primary Care Provider + [phone] Reason for Visit * Reason Comments Med Refill Encounter Details Date Type Department Care Team ([facility] st Contact Info) Description 2024 Refill [facility] [address] [place] [address] Amna Richards DO [address] [place] [address] Social History Tobacco Use Types Packs/Day Years [...] 01/08/2025 11:30 AM EDT Clinical Support [facility] [address] [place] [address] Ester Chatman, JACOB 03/06/2025 3:00 PM EST Office Visit [facility] 267 [place], [place] [phone] Edna Latham, OD 267 [place] [address] documented as of this encounter Visit Diagnoses Not on filedocumented in this encounter Additional Health Concerns Assessment Noted Time PHQ-9 Depression Total Score: 11 024 1:53 PM EDT documented as of this encounter Care Teams Hooker Laster Relationship Specialty Start Date End Date Amna Richards DO 230 [place] [address] PCP - General Family Medicine 10/12/23 [facility] 05/08/24 documented as of this encounter
--- OUTSIDE RECORDS SUMMARY | 2024-12-15 18:32 | XMS_ITS | Encounter Summary ---
Author Organization [employer] Address [address] [place] [address] 7t [place] [address] Care Team Providers Care Dogger Name Role Phone Amna Richards DO Primary Care Provider + [phone] Amna Richards DO Primary Care Provider [phone] Candace Quiñones MD Primary Care Pro vider Amna Richards DO Primary Care Provider + [phone] Reason for Visit * Reason Comments Med Refill Encounter Details Date Type Department Care Team (Late st Contact Info) Description 06/26/2022 Refill [facility] [address] [place], [place] [phone] Linda Loya MD 230 [place] [address] Severe persistent asthma with acute exacerbation Social [...] Description 01/08/2025 11:30 AM EDT Clinical Support [facility] [address] [place] [address] Ester Chatman, RN 03/06/2025 3:00 PM EST Office Visit [facility] [address] [place], [place] [phone] Edna Latham OD 267 [place] [address] documented as of this encounter Visit Diagnoses Diagnosis Severe persistent asthma with acute exacerbation (HCC) documented in this encounter Additional Health Concerns Assessment Noted Time PHQ-9 Depression Total Score: 13 023 11:01 AM EDT documented as of this encounter Care Teams Dogger Relationship Specialty Start Date End Date Amna Richards DO 230 [place] [address] PCP - General Family Medicine 03/19/18 07/20/22 Amna Richards DO 230 [place] [address] PCP - General Family Medicine 07/21/22 07/23/22 Candace Quiñones MD [address] [place] [address] PCP - General Internal Medicine 07/24/22 10/11/23 Amna Richards DO 230 [place] [address] PCP - General Family Medicine 10/12/23 [facility] 05/08/24 documented as of this encounter
--- OUTSIDE RECORDS SUMMARY | 2024-12-15 18:32 | XMS_ITS | Encounter Summary ---
Author Organization [employer] Address [address] [place] [address] 7t h [place] [address] Care Team Providers Care Statistical Assistant Name Role Phone Candace Quiñones MD Primary Care Pro vider Amna Richards DO Primary Care Provider + [phone] Reason for Visit * Reason Onset Date Comments Med Refill 03/20/2023 Encounter Details Date Type Department Care Team ([facility] st Contact Info) Description 03/20/2023 Telephone [facility] 230 [place] [address] Candace Quiñones MD 230 [place] [address] Med Refill Social History Tobacco Use Types [...] 50 MG tablet To be sent to: [facility]/pharmacy #[id number] documented in this encounter Plan of Treatment Upcoming Encounters Date Type Department Care Team (Late st Contact Info) Description 01/08/2025 11:30 AM EDT Clinical Support [facility] 230 [place] [address] Ester Chatman, RN 03/06/2025 3:00 PM EST Office Visit [facility] [address] [place] [address] Edna Latham OD 267 [place] [address] documented as of this encounter Visit Diagnoses Not on filedocumented in this encounter Additional Health Concerns Assessment Noted Time PHQ-9 Depression Total Score: 11 023 3:01 PM EDT documented as of this encounter Care Teams Statistical Assistant Relationship Specialty Start Date End Date Candace Quiñones MD 230 [place] [address] PCP - General Internal Medicine 07/24/22 10/11/23 Amna Richards DO 230 [place], [place] [phone] PCP - General Family Medicine 10/12/23 [facility] 05/08/24 documented as of this encounter
--- OUTSIDE RECORDS SUMMARY | 2024-12-15 18:32 | XMS_ITS | Encounter Summary ---
Author Organization [employer] Address [address] [place] [address] 7t [place] [address] Care Team Providers Care Lmft Name Role Phone Elizabeth Richardsfer Primary Care Provider [phone] Reason for Visit * Reason Onset Date Comments Med Refill 12/11/2024 Encounter Details Date Type Department Care Team (Late st Contact Info) Description 12/11/2024 Refill [facility] [address] [place] [address] Ester Chatman RN Chronic pain of right hand Social History [...] Description 01/08/2025 11:30 AM EDT Clinical Support [facility] [address] [place] [address] Ester Chatman RN 03/06/2025 3:00 PM EST Office Visit [facility] [address] [place] [address] Edna Latham, OD [address] [place] [address] documented as of this encounter Visit Diagnoses Diagnosis Chronic pain of right hand documented in this encounter Additional Health Concerns Assessment Noted Time PHQ-9 Depression Total Score: 11 024 1:53 PM EDT documented as of this encounter Care Teams Lmft Relationship Specialty Start Date End Date Amna Richards DO 230 [place] [address] PCP - General Family Medicine 10/12/23 [facility] 05/08/24 documented as of this encounter
--- OUTSIDE RECORDS SUMMARY | 2024-12-15 18:32 | XMS_ITS | Encounter Summary ---
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 RV 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 01/15/24 Social History [...] t he electric, gas, oil or water [employer] threatened to shut off services in your [...] Description 01/08/2025 11:30 AM EDT Clinical Support [facility] 230 [place] [address] Ester Chatman RN 03/06/2025 3:00 PM EST Office Visit [facility] [address] [place] [address] Tarka, Edna, OD 267 [place] [address] documented as of this encounter Visit Diagnoses Not on filedocumented in this encounter Additional Health Concerns Assessment Noted Time PHQ-9 Depression Total Score: 11 09/02/ 024 1:53 PM EDT documented as of this encounter Care Teams Boarding Room Fixer Relationship Specialty Start Date End Date Amna Richards DO [address] [place] [address] PCP - General Family Medicine 10/12/23 [facility] 05/08/24 documented as of this encounter
--- OUTSIDE RECORDS SUMMARY | 2024-12-15 18:32 | XMS_ITS | Encounter Summary ---
Author Organization [employer] Address [address] [place] [address] 7t [place] [address] Care Team Providers Care Network Diagnostic Support Specialist Name Role Phone Susie Amna Primary Care Provider + [phone] Reason for Visit * Reason Comments Med Refill Encounter Details Date Type Department Care Team ([facility] st Contact Info) Description 01/25/2024 Refill [facility] 230 [place] [address] Candace Singh MD 230 [place] [address] Fracture of vertebra due to osteoporosis, sequela [...] Description 01/08/2025 11:30 AM EDT Clinical Support [facility] 230 [place] [address] Ester Chatman, JACOB 03/06/2025 3:00 PM EST Office Visit [facility] 267 [place], [place] [phone] Edna Latham, OD 267 [place] [address] documented as of this encounter Visit Diagnoses Diagnosis Fracture of vertebra due to osteoporosis, sequela documented in this encounter Additional Health Concerns Assessment Noted Time PHQ-9 Depression Total Score: 11 024 1:53 PM EDT documented as of this encounter Care Teams Network Diagnostic Support Specialist Relationship Specialty Start Date End Date Amna Richards DO 230 [place] [address] PCP - General Family Medicine 10/12/23 [facility] 05/08/24 documented as of this encounter
--- OUTSIDE RECORDS SUMMARY | 2024-12-15 18:32 | XMS_ITS | Encounter Summary ---
Author Organization [employer] Address [address] [facility] 7t [place] [address] Care Team Providers Care Hand Former Name Role Phone Elizabeth Richardsfer Primary Care Provider + [phone] Encounter Details Date Type Department Care Team (Late st Contact Info) Description 01/25/2024 Orders Only [facility] 230 [place] [address] Brendon Davidson MD 230 [place] [address] Social History Tobacco Use Types Packs/Day Years [...] Description 01/08/2025 11:30 AM EDT Clinical Support [facility] 230 [place] [address] Ester Chatman, RN 03/06/2025 3:00 PM EST Office Visit [facility] [address] [place], [place] [phone] Edna Latham OD 267 [place] [address] documented as of this encounter Visit Diagnoses Not on filedocumented in this encounter Additional Health Concerns Assessment Noted Time PHQ-9 Depression Total Score: 11 024 1:53 PM EDT documented as of this encounter Care Teams Hand Former Relationship Specialty Start Date End Date Amna Richards DO 230 [place] [address] PCP - General Family Medicine 10/12/23 [facility] 05/08/24 documented as of this encounter
--- OUTSIDE RECORDS SUMMARY | 2024-12-15 18:32 | XMS_ITS | Clinical Summary ---
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 Active Bisacodyl EC 5 MG EC tablet [...] 024 Active ergocalciferol (Vitamin D2) 1.25 MG (50009 UT) capsule TAKE 1 CAPSULE BY MOUTH [...] wheezing. 75 mL 2 025 2025 Active alendronate (Fosamax) 70 MG tablet TAKE [...] directed by MD. 60 patch 3 Active nicotine (Nicoderm, Step 2) 14 MG/24HR [...] obstructive pulmonary disease, unspecified COPD type (CMS/HCC) ([facility]) 1 each Once per day. 1 each 025 Active losartan (Cozaar) 25 MG tablet TAKE 1 TABLET BY MOUTH EVERY DAY IN THE MORNING 90 tablet 1 025 Active hydroCHLOROthia zide 12.5 MG tablet TAKE 1 TABLET BY MOUTH EVERY DAY 90 tablet 025 Active insulin glargine (Basaglar KwikPen) 100 UNIT/ML [...] NEEDED FOR MUSCLE SPASM 30 tablet Active atorvastatin (Lipitor) 10 MG tablet TAKE 1 TABLET BY MOUTH EVERYDAY AT BEDTIME 90 tablet 1 Active traMADol (Ultram) 50 MG tabletIndicatio ns:Chronic pain of right hand Take 1 tablet (50 mg) by mouth every 6 (six) hours if needed for severe pain for up to 7 days. 28 tablet 025 2024 Active Diclofenac Sodium 1 % gelIndications: Strain of cervical portion of left trapezius muscle Apply 2 g topically if needed in the morning, at noon, in the evening, and at bedtime (pain) for up to 10 days. 150 g 3 025 2024 Active baclofen (Lioresal) 10 MG tabletIndicatio ns:Strain of cervical portion of left trapezius muscle Take 1 tablet (10 mg) by mouth if needed in the morning, at noon, and at bedtime for muscle spasms for up to 10 days. Hold Baclofen 20mg at evening dose while on this medication 30 tablet 025 2024 Active Diclofenac Sodium 1 % gel Apply 2 g topically if needed in the morning, at noon, in the evening, and at bedtime (pain). 150 g 3 025 2024 Discontinued(R eorder (will not trigger notification to Pharmacy)) atorvastatin (Lipitor) 10 MG tablet TAKE 1 TABLET BY MOUTH EVERYDAY AT BEDTIME 90 tablet 1 025 2024 Discontinued traMADol (Ultram) 50 MG tabletIndicatio ns:Chronic pain of right hand Take 1 tablet (50 mg) by mouth every 6 (six) hours if needed for severe pain for up to 7 days. 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 Will follow up in next visit with patient about this and if still present at next labs will consider to refer again -CBC including blood Smear ordered at last visit, not done labs yet Assessment & Plan (10/24/2022 5:04 AM EDT): Most likely 2/2 chronic steroid use? Patient was referred in the past to mechanical system technician for this. Will follow up in next visit with patient about this and if still present at next labs will consider to refer again -CBC including blood Smear ordered at last visit, not done labs yet Assessment & Plan (08/21/2022 2:34 PM EDT): Most likely 2/2 chronic steroid use? Patient was referred in the past to mechanical system technician for this. Will follow up in next visit with patient about this and if still present at next labs will consider to refer again -labs today including blood smear Assessment & Plan (07/21/2022 6:41 PM EDT): Most likely 2/2 chronic steroid use? Patient was referred in the past to mechanical system technician for this. Will follow up in next visit with patient about this and if still present at next labs will consider to refer again Assessment & Plan (07/12/2022 10:17 PM EDT): Most likely 2/2 chronic steroid use? Patient was referred in the past to mechanical system technician for this. Will follow up in [...] length about tobacco cessation -continue following w beveler f lung ca screening ( as per in lung nodules problem) -start on chantix by beveler Assessment & Plan (10/24/2022 5:08 AM EDT): [...] length about tobacco cessation -continue following w beveler f lung ca screening ( as per [...] length about tobacco cessation -continue following w beveler f lung ca screening ( as per [...] scarring of lung base -continue care w beveler Assessment & Plan (10/23/2022 8:40 PM EDT): [...] scarring of lung base -continue care w beveler Assessment & Plan (08/21/2022 2:28 PM EDT): [...] the patient to follow up with his beveler about nodules and hx of tobacco smoking [...] the patient to follow up with his beveler about nodules and hx of tobacco smoking Assessment & Plan (07/12/2022 9:58 PM EDT): Patient with multiple pulmonary nodules seen in previous CT scans including the last one. In one CT scan in 2018 he did have tree in bud nodules in [place]. Rec for bronchoscopy, per patient he never underwent any procedure. - I advised the patient to follow up with his beveler about this. Chronic constipation 05/03/2022 Assessment & [...] --also I request today to OSWALD-( Karen A.) to try to get last colonoscopy report [...] -continue basal insulin- 10 HS -referred to human resources recruiter----to eval x osteoporosis , DM and likely [place] syndrome that can explain pts physical features w large abdominal girth and decrease muscle mass in extremities -with normal liver and no peritoneal fluid in CT scan and abd US.---apt scheduled x 02/01/2023 at 10 am - Patient would like a biological aide -Following already -discussed about hypoglyecemic symptoms and to check CBGs in fasting and 2 h after biggest meal and bring at next visit readings -will refer to house mother at future visit -referred to beaming inspector Assessment & Plan (10/24/2022 5:04 AM EDT): Hb1ac 10/2022 is 7.4 <-- 10.2 <-- - 9.2. Likely due to chronic steroid use. - Stop Farxiga 2 mo ago as possible cause of worsening balanitis - Continue Metformin 1 g BID. 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 that can explain pts physical features w large abdominal girth and decrease muscle mass in extremities -with normal liver and no peritoneal fluid in CT scan and abd US.---apt scheduled x 11/02/2022 at 9 am- - Patient would like a biological aide referral.-referred already -discussed about hypoglyecemic symptoms and to check CBGs in fasting and 2 h after biggest meal and bring at next visit readings -will refer to house mother at future visit -referred to beaming inspector Assessment & Plan (08/21/2022 2:19 PM EDT): [...] u from 7 u HS -referred to human resources recruiter----to eval x osteoporosis ,uncontrolled DM and 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 that can explain pts physical features w large abdominal girth and decrease muscle mass in extremities -with normal liver and no peritoneal fluid in CT scan.---apt scheduled x 11/02/2022 at 9 am--I told today this info to pt by phone - Patient would like a biological aide referral.-referred today -discussed about hypoglyecemic symptoms and to check CBGs in fasting and 2 h after biggest meal and bring at next visit readings -will refer to house mother at future visit -referred today to beaming inspector -DM labs today in fasting Assessment & [...] lantus-pen instead of basaglar) -referred today to human resources recruiter----to eval x osteoporosis ,uncontrolled DM and 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 - Patient would like a biological aide referral. Will refer at next visit. -discussed [...] at next visit. - Will refer to human resources recruiter at next appointment in 2 weeks. - Patient would like a biological aide referral. Will refer at next visit. [...] of inhalers. Advised patient to follow with beveler for uncontrolled COPD. 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 - continue alendronate weekly-started on 07/2022 [...] apt for HFU after is dc from [facility] 07/21/2022 10/11/2023 Assessment & Plan (12/01/2022 [...] Encounters Date Type Department Care Team Description 12/11/2024 10:00 AM EDT Office Visit [facility] [address] [place] [address] Bong Sahni MD Strain of cervical portion of left trapezius muscle (Primary Dx) 12/11/2024 9:00 AM EDT Clinical Support [facility] [address] [place] [address] Ester Chatman RN Long-term current use of opiate analgesic (Primary Dx) 12/11/2024 Refill [facility] [place] [address] Ester Chatman, global chief creative officer pain of right hand 12/11/2024 Travel 12/11/2024 Refill [facility] [address] [place] [address] Amna Richards DO Muscle spasm 12/08/2024 Telephone [facility] [address] [place] [address] Ester Chatman, JACOB NCNS CD MIXER HELPER RV appt today 12/05/2024 Orders Only GENERIC EXTERNAL DATA DEPARTMENT Provider, Generic External Data 12/05/2024 Refill [facility] [address] [place] [address] Amna Richards DO 12/02/2024 Refill [facility] [address] [place] [address] Amna Richards DO Chronic pain of right hand (Primary Dx) 11/13/2024 Refill [facility] [address] [place] [address] Amna Richards DO Muscle spasm 11/11/2024 Telephone [facility] [address] [place] [address] Amna Richards DO 11/08/2024 Refill [facility] [address] [place] [address] Amna Richards DO Hypertension, unspecified type 11/08/2024 Refill [facility] [address] [place] [address] Corrine Vega MD Hypertension, unspecified type 11/07/2024 11:30 AM EDT Telemedicine [facility] [address] [facility] [place] [address] Ester Chatman, RN Long-term current use of opiate analgesic 11/07/2024 Refill [facility] [address] [place] [address] Ester Chatman, global chief creative officer pain of right hand 11/07/2024 Travel 10/27/2024 11:30 AM EDT Office Visit [facility] [address] [facility] [place] [address] Amna Richards DO Type 2 diabetes mellitus without complication, without long-term current use of insulin ([facility]) (Primary Dx); Unintentional weight loss; Screening for colon cancer; Chronic pain of right hand 10/27/2024 Travel 10/23/2024 Telephone [facility] [address] [facility] [place] [address] Amna Richards DO Chart Prep 10/16/2024 Refill [facility] [address] [facility] [address] Amna Richards DO 10/16/2024 Telephone [facility] [address] [place] [address] Amna Richards DO Referral 10/14/2024 Patient Outreach [facility] [address] [facility] [place] [address] Amna Richards DO Care Coordination (C3 CM-W Justyna Banda telephone call outreach) 10/09/2024 Refill [facility] [address] [facility] [place] [address] Amna Richards DO Muscle spasm 10/08/2024 Telephone [facility] [address] [facility] [place] [address] Amna Richards DO Nurse Triage 10/08/2024 Refill [facility] [address] [facility] [place] [address] Amna Richards DO Long-term current use of opiate analgesic 10/07/2024 Patient Outreach [facility] [address] [facility] [place] [address] Amna Richards DO Care Coordination (C3 CM-W Ginette Banda telephone call outreach) 10/03/2024 Telephone [facility] [address] [facility] [place] [address] Amna Richards DO Chart Prep 09/26/2024 1:00 PM EDT Telemedicine [facility] [address] [facility] [place] [address] Ester Chatman, RN Long-term current use of opiate analgesic 09/26/2024 Refill [facility] [address] [place] [address] Ester Chatman, RN Long-term current use of opiate analgesic 09/26/2024 Travel 09/26/[address] [address] Amna Richards DO Nurse Triage 09/24/2024 6:20 PM EDT Office Visit [facility] [address] [place] [phone] Bong Sahni MD Tinea pedis of right foot (Primary Dx) 09/24/2024 Travel 09/24/[address] [address] Amna Richards DO Nurse Triage 09/23/2024 Patient Outreach [address] [address] Amna Richards DO Care Coordination 09/23/2024 Patient Outreach [address] [address] Amna Richards DO Care Management (C3CM- Initial assessment/enrollmen t) 09/17/[address] [address] Ester Chatman, JACOB Clarify who ordered Oxygen 09/17/[address] [address] Amna Richards DO Long-term current use of opiate analgesic (Primary Dx) from Last 3 Months Immunizations Immunization Administration [...] 18 12/11/2024 10:04 AM EDT Oxygen Saturation 95% 10/27/2024 11:56 AM EDT Inhaled Oxygen Concentration - - Weight 65.8 kg (145 lb) 12/11/2024 10:04 AM EDT Height 170.2 cm (5' 7 ) 12/11/2024 10:04 AM EDT Body Mass Index 22.71 12/11/2024 10:04 AM EDT Plan of Treatment Upcoming Encounters Date Type Department Care Team (Late st Contact Info) Description 01/08/2025 11:30 AM EDT Clinical Support [facility] [address] [place] [address] Ester Chatman, RN 03/06/2025 3:00 PM EST Office Visit [facility] [address] [place], [place] [phone] Edna Latham, OD [address] [place] [address] Health Maintenance Due Date Last Done Comments CT Colonography 1968 Colonoscopy 1968 FIT 1968 Sigmoidoscopy 1968 Diabetes: Foot Exam 02/20/1978 [...] Screening 05/16/2025 05/16/2024 Disability Screening 10/27/2025 10/27/2024 FOBT 12/05/2025 12/05/2024 Tobacco Screening 12/11/2025 12/11/2024 Colorectal Cancer Screening 12/06/2027 FIT DNA/Cologuard 12/06/2027 12/05/2024 DTaP/Tdap/Td Vaccines (3 - Td or Tdap) [...] EDT Long-term current use of opiate analgesic ALBUMIN Routine 12/05/2024 3:12 PM EDT BASIC METABOLIC PANEL Routine 12/05/2024 3:12 PM EDT SARS COV2/INFLUENZA A/B AND RSV RNA QL NAAT Routine 12/05/2024 3:12 PM EDT LAB COLOGUARD COLON CANCER SCREEN Routine 12/05/2024 9:05 AM EDT Screening for colon cancer BASIC METABOLIC PANEL Routine 10/28/2024 12:34 PM [...] complication, without long-term current use of insulin ([facility]/HCC) POCT GLUCOSE Routine 10/27/2024 11:57 AM EDT Type 2 diabetes mellitus without complication, without long-term current use of insulin ([facility]/HCC) ALBUMIN, RANDOM URINE W/CREATININE Routine 12/01/2022 12:06 [...] - 12/11/2024 9:05 AM EDT UTOX cup Lot#[id number] Exp. 12/23/25 Internal Pass Control Amna Richards DO POINT OF CARE TEST ENTER/LOU T ORDERABLES Final Result * SARS-CoV-2 RNA, Influenza A/B, and RSV RNA, Ql NAAT (12/05/2024 3:12 PM EDT) Influenza A PCR NEGATIVE Negative [facility] Influenza B PCR NEGATIVE Negative [facility] Resp Syncy Virus RNA Qual PCR NEGATIVE Negative [facility] SARS COV2 PCR NEGATIVE Negative [facility] Comment:All test results mus t be [...] use by authorized laboratories.Testing performed on the [employer] GeneXpert utilizingreal-time RT-PCR.All SARS CoV2 and positive influenza A/B results arereported to [facility]. 12/05/2024 3:12 PM EDT 12/05/2024 3:12 PM EDT Generic External Data Provider LAB MICROBIOLOGY - GENERAL ORDERABLES Final Result Performing Organization Address [facility]/ZIP Co de Phone Number [facility] [address] [place] [phone] * Albumin (12/05/2024 3:12 PM EDT) Pathologist [facility] Albumin Level 4.4 3.5 - 5.0 g/dL [facility] 12/05/2024 3:12 PM EDT 12/05/2024 3:12 PM EDT Generic External Data Provider LAB BLOOD ORDERAB LES Final Result Performing Organization Address [facility] Co de Phone Number [facility] [address] [place] [phone] * (ABNORMAL) Basic Metabolic Panel (12/05/2024 3:12 PM EDT) Only the most recent of2 resultswithin the time period is included. Sodium 137 135 - 145 mmol/L [facility] Potassium 4.4 3.3 - 5.1 mmol/L [facility] Chloride 96 96 - 108 mmol/L [facility] Carbon Dioxide 33(H) 22 - 29 mmol/L [facility] Anion Gap 12 12 - 20 [facility] Urea Nitrogen (BUN) 10 9 - 16 mg/dL [facility] Creatinine, Serum 0.68 0.5 - 1.4 mg/dL [facility] Estimated Glomerular Filt Rate >60 [facility] Comment:Chronic Kidney Disea se: Estimated GFR < 60 mL/min/1.90l3Tgvkeb Kidney Disease: Estimated GFR < 15 mL/min/1.73m2 Glucose 170(H) 60 - 115 mg/dL [facility] Calcium 9.3 8.4 - 10.2 mg/dL [facility] 12/05/2024 3:12 PM EDT 12/05/2024 3:12 PM EDT us Generic External Data Provider LAB BLOOD ORDERAB LES Final Result Performing Organization Address City/State/[facility] Co de Phone Number [facility] [address] [place] [phone] * Cologuard?? colon cancer screening (12/05/2024 9:05 AM EDT) Cologuard Result Negative Negative 12/10/19 12:47 PM EDT [employer] (CLIA #:[id number]) Comment: The Cologuard (TM) test was performed on this specimen. NEGATIVE TEST RESULT. A negative Cologuard result indicates a low likelihood that a colorectal cancer (CRC) or advanced adenoma (adenomatous polyps with more advanced pre-malignant features) is present. The chance that a person with a negative Cologuard test has a colorectal cancer is less than 1 in 1500 (negative predictive value >99.9%) or has an advanced adenoma is less than 5.3% (negative predictive value 94.7%). These data are based on a prospective cross-sectional study of 10,000 individuals at average risk for colorectal cancer who were screened with both Cologuard and colonoscopy. (Goyo Hernandez al, N Engl J Med 2014;370(14):1286- 1297) The normal value (reference range) for this assay is negative. COLOGUARD RE-SCREENING RECOMMENDATION: Periodic colorectal cancer screening is an important part of preventive healthcare for asymptomatic individuals at average risk for colorectal cancer. Following a negative Cologuard result, the [place] [employer] and U.S. Multi-Society Task Force screening guidelines recommend a Cologuard re-screening interval of 3 years. References: [place] [employer] Guideline for Colorectal Cancer Screening: https://www.cancer.org/cancer/echjz-dbpnbv-ujifke/iflsxmpzf-rwmawbmvm-mststog/ac s-rec ommendations.html.; Bin DK, Bill CHAU, Luiza TrevizoK, Colorectal Cancer Screening: Recommendations for Physicians and Patients from the U.S. Multi-Society Task Force on Colorectal Cancer Screening , Am J Gastroenterology 2017; 112:6142-9503. TEST DESCRIPTION: Composite algorithmic analysis of stool DNA-biomarkers with hemoglobin immunoassay. Quantitative values of individual biomarkers are not reportable and are not associated with individual biomarker result reference ranges. Cologuard is intended for colorectal cancer screening of adults of either sex, 45 years or older, who are at average-risk for colorectal cancer (CRC). Cologuard has been approved for use by the U.S. FDA. The performance of Cologuard was established in a cross sectional study of average-risk adults aged 50-84. Cologuard performance in patients ages 45 to 49 years was estimated by sub-group analysis of near-age groups. Colonoscopies performed for a positive result may find as the most clinically significant lesion: colorectal cancer [4.0%], advanced adenoma (including sessile serrated polyps greater than or equal to 1cm diameter) [20%] or non- advanced adenoma [31%]; or no colorectal neoplasia [45%]. These estimates are derived from a prospective cross-sectional screening study of 10,000 individuals at average risk for colorectal cancer who were screened with both Cologuard and colonoscopy. (Goyo Hernandez al, N Engl J Med 2014;370(14):3628-4274.) Cologuard may produce a false negative or false positive result (no colorectal cancer or precancerous polyp present at colonoscopy follow up). A negative Cologuard test result does not guarantee the absence of CRC or advanced adenoma (pre-cancer). The current Cologuard screening interval is every 3 years. ([place] [employer] and U.S. Multi-Society Task Force). Cologuard performance data in a 10,000 patient pivotal study using colonoscopy as the reference method can be accessed at the following location: www.[employer]/results. Additional description of the Cologuard test process, warnings and precautions can be found at www.[employer].com. Stool specimen (specimen) 12/05/2024 9:05 AM EDT 12/06/2024 1:34 PM EDT Amna Richards DO LAB MOLECULAR DIAGNOSTICS OR DERABLES Final Result [employer] (CLIA #:[id number]) [address] [place] [address], * T-SPOT??.TB (10/28/2024 12:34 PM EDT) T Spot TB Negative Negative [facility] Comment:A negative test resu lt [...] as aquantitative test. TS PANEL A 0 [facility] TS PANEL B 0 [facility] Negative Control Passed [facility] Positive Control Passed [facility] Comment:For additional infor leora, please refer tohttp://education.[employer]/faq/NSB120(This link is being provided for informational/educational purposes only.)THIS TEST WAS PERFORMED AT:[employer]/JACK [id number] [place] [address]PSZCOCB W. MASON,MD,PHD 10/28/2024 12:3 4 PM EDT 10/28/2024 5:45 PM EDT us Amna Richards DO LAB BLOOD ORDERABLES Final R esult [facility] [address] [place] [phone] * (ABNORMAL) CBC auto differential (10/28/2024 12:34 PM EDT) White Blood Count 13.6(H) 4.8 - 10.8 X10*3/uL [facility] Red Blood Count 4.88 4.60 - 5.80 X10*6/uL [facility] Hemoglobin 14.8 14.0 - 18.0 g/dl [facility] Hematocrit 45.8 42.0 - 52.0 % [facility] Mean Corpuscular Volume 93.9 80.0 - 98.0 fL [facility] Mean Corpuscular Hemoglobin 30.3 27.0 - 33.0 pg [facility] Mean Corpuscular HGB Conc 32.3 31.0 - 36.0 g/dl [facility] Red Cell Distribution Width 14.4 11.0 - 16.0 % [facility] Platelet Count 421(H) 160 - 400 X10*3/uL [facility] Mean Platelet Volume 8.8(L) 9.4 - 12.4 fL [facility] Neutrophils Percent Auto 84.5(H) 45 - 73 % [facility] Imm Gran Pct Auto 1.0(H) 0.0 - 0.4 % [facility] Lymphocytes Percent Auto 6.8(L) 20 - 40 % [facility] Monocytes Percent Auto 6.6 2 - 11 % [facility] Eosinophils Percent Auto 0.4 0 - 4 % [facility] Basophils Percent Auto 0.7 0 - 2 % [facility] NRBC Pct Auto 0.0 0.0 - 0.2 /100WBC [facility] Neutrophils Absolute Auto 11.5(H) 2.0 - 8.3 x10*3/uL [facility] Imm Gran Abs Auto 0.14(H) 0.00 - 0.03 X10*3/uL [facility] Lymphocytes Absolute Auto 0.9(L) 1.2 - 4.9 X10*3/uL [facility] Monocytes Absolute Auto 0.9 0.1 - 1.2 X10*3/uL [facility] Eosinophils Absolute Auto 0.1 0.0 - 0.4 X10*3/uL [facility] Basophils Absolute Auto 0.1 0.0 - 0.2 X10*3/uL [facility] NRBC Abs Auto 0.000 0.0 - 0.012 X10*3/uL [facility] Blood Venous blood specimen / Unknown 10/28/2024 12:34 PM EDT 10/28/2024 5:45 PM EDT us Amna Richards DO LAB BLOOD ORDERABLES Final R esult [facility] [address], [place] [phone] * HIV-1/2 Antigen and Antibodies, Fourth Generation, with Reflexes (10/28/2024 12:34 PM EDT) HIV AB/AG Nonreactive Nonreactive [facility] Comment:HIV-1 p24 Ag and/or HIV-1/HIV-2 Ab not detected.A test result that is nonreactive does not exclude thepossibility of exposure to or infection with HIV-1 and/orHIV-2. Nonreactive results in this assay for individualswith prior exposure to HIV-1 and/or HIV-2 may be due toantigen and antibody levels that are below the limit ofdetection of this assay.The [employer] HIV Ag/Ab Combo assay result andsupplemental assay results should be interpreted inconjunction with the patient's clinical presentation,history and other laboratory results. If the results areinconsistent with clinical evidence, additional testing issuggested to confirm the result. Blood Venous blood specimen / Unknown 10/28/2024 12:34 PM EDT 10/28/2024 5:45 PM EDT Amna Richards DO LAB BLOOD ORDERABLES Final R esult [facility] [address] [place] [phone] * (ABNORMAL) Urinalysis Complete (10/28/2024 12:34 PM EDT) Color Urine Yellow [facility] Appearance Urine Clear [facility] PH 6.0 5.0 - 9.0 [facility] Glucose Urine UA Negative Negative mg/dL [facility] Urine Blood Trace(A) Negative [facility] Specific Morgan[place] - Urine 1.015 1.005 - 1.025 [facility] Urine Protein Negative Neg-Trace mg/dL [facility] Urine Ketones Negative Negative mg/dL [facility] Nitrite Urine Negative Negative [facility] Leukocyte Esterase Urine Negative Negative [facility] RBC Urine 3-5(A) 0 - 2 /HPF [facility] Urine WBC 0-5 0 - 5 /HPF [facility] Urine Squamous Epithelial Cell 0-2 0 - 2 /HPF [facility] Urine Bacteria None Seen None Seen [facility] Hyaline Casts, Urine 0-2 0 - 2 /LPF [facility] Urine (Urine, Random) 10/28/2024 12:34 PM EDT 10/28/2024 4:02 PM EDT Amna Richards DO LAB URINE ORDERABLES Final R esult Performing Organization Address [facility] Co de Phone Number [facility] [address] [place] [phone] * Sed Rate by Modified Dwightren (10/28/2024 12:34 PM EDT) Erythrocyte Sedimentation Rate 5 0 - 15 MM/HR [facility] Comment:Patients with polycy themia and many hemoglobin abnormalitiesmay have depressed sed rates whereas patients with anemiamay have elevated sed rates. Blood Venous blood specimen / Unknown 10/28/2024 12:34 PM EDT 10/28/2024 5:45 PM EDT Amna Richards DO LAB BLOOD ORDERABLES Final R esult Performing Organization Address [facility] Co de Phone Number [facility] [address] [place] [phone] * Culture, Urine, Routine (10/28/2024 12:34 PM EDT) Urine Urine specimen obtained by clean catch procedure / Unknown 10/28/2024 12:34 PM EDT 10/29/2024 8:45 AM EDT Comment:CC Narrative [facility] - 10/30/2024 10:32 AM EDT Urine Culture No growth. Specimen Source: Urine clean catch Amna Richards DO LAB MICROBIOLOGY - GENERAL O RDERABLES Final Result Performing Organization Address City/[facility]/ZIP Co de Phone Number [facility] [address] [place] [phone] * C-reactive Protein (10/28/2024 12:34 PM EDT) C Reactive Protein 0.12 < or = 0.50 mg/dL [facility] Blood Venous blood specimen / Unknown 10/28/2024 12:34 PM EDT 10/28/2024 5:45 PM EDT Amna Richards DO LAB BLOOD ORDERABLES Final R esult Performing Organization Address [facility] Co de Phone Number [facility] [address] [place] [phone] * TSH (10/28/2024 12:34 PM EDT) Thyroid Stimulating Hormone 0.55 0.32 - 4.0 uIU/mL [facility] Comment:TSH 3rd Generation ( [facility]) Blood Venous blood specimen / Unknown 10/28/2024 12:34 PM EDT 10/28/2024 5:45 PM EDT Amna Richards DO LAB BLOOD ORDERABLES Final R esult Performing Organization Address [facility] de Phone Number [facility] [address] [place] [phone] * T4, Free (10/28/2024 12:34 PM EDT) Free T4 (Free Thyroxine) 0.87 0.71 - 1.85 ng/dL [facility] Blood Venous blood specimen / Unknown 10/28/2024 12:34 PM EDT 10/28/2024 5:45 PM EDT Amna Richards DO LAB BLOOD ORDERABLES Final R esult Performing Organization Address [facility] Co de Phone Number [facility] [address] [place] [phone] * PSA,Total (10/28/2024 12:34 PM EDT) Prostate Specific Antigen 1.19 <0.05 - 4.0 ng/mL [facility] Comment:PSA methodology: Abb marissa Alichikaty i ChemiluminescentMicroparticle Immunoassay (CMIA) Blood Venous blood specimen / Unknown 10/28/2024 12:34 PM EDT 10/28/2024 5:45 PM EDT Amna Richards DO LAB BLOOD ORDERABLES Final R esult Performing Organization Address City/[facility] Co de Phone Number [facility] [address] [place] [phone] * Prealbumin (10/28/2024 12:34 PM EDT) Prealbumin 24.0 20 - 40 mg/dL [facility] Blood Venous blood specimen / Unknown 10/28/2024 12:34 PM EDT 10/28/2024 5:45 PM EDT Amna Richards [facility] LAB BLOOD ORDERABLES Final R esult Performing Organization Address [facility] de Phone Number [facility] [address] [place] [phone] * Hepatic Function Panel (10/28/2024 12:34 PM EDT) Bilirubin, Total 0.4 0.0 - 1.0 mg/dL [facility] Bilirubin, Direct 0.2 0.0 - 0.5 mg/dL [facility] Aspartate Amino Transferase 24 5 - 37 U/L [facility] Alanine Aminotransferase 17 0 - 40 U/L [facility] Total Protein 7.1 6.5 - 8.0 g/dL [facility] Albumin Level 4.3 3.5 - 5.0 g/dL [facility] Alkaline Phosphatase 63 39 - 117 U/L [facility] Blood Venous blood specimen / Unknown 10/28/2024 12:34 PM EDT 10/28/2024 5:45 PM EDT Amna Richards DO LAB BLOOD ORDERABLES Final R esult Performing Organization Address [facility] Co de Phone Number [facility] [address] [place] [phone] * (ABNORMAL) POCT HGB A1C (10/27/2024 12:01 PM EDT) Pathologist [facility] Hemoglobin A1C 7.8(A) 4.0 - 5.7 % QC Media Lot # [id number] Lot# Expiration Date Blood 10/27/2024 12:0 1 PM EDT Amna Susie DO POINT OF CARE TEST ENTER/LUO T ORDERABLES Final Result * (ABNORMAL) POCT Glucose (10/27/2024 11:57 AM EDT) Pathologist [facility] Glucose Blood, POC 276(A) 60 - 200 mg/dL QC Media Lot # [id number] Lot# Expiration Date Blood Capillary blood specimen / Unknown 10/27/2024 11:57 AM EDT Amna Susie DO POINT OF CARE TEST ENTER/LOU T ORDERABLES Final Result * (ABNORMAL) Albumin, Random Urine W/Creatinine (12/01/2022 12:06 PM EDT) Pathologist [facility] Creatinine, Urine 134.93 mg/dL [facility] Microalbumin Urine 71.0 mg/L H [facility] Microalbum Creatinine Ratio Ur 52.6(H) <30 ug/mg cr [facility] Comment:Albumin/Creatinine R atio Reference Ranges: Normal: < 30 ug/mg creatinine Microalbuminuria: 30 - 300 ug/mg creatinineClinical Albuminuria: > 300 ug/mg creatinine 12/01/2022 12:0 6 PM EDT 12/01/2022 2:44 PM EDT Candace Palmer MD LAB URINE ORDERAB LES Final Result [facility] [address] [place] [phone] * Hepatitis C Antibody with Reflex to HCV, RNA, Quantitative, Real-Time PCR (12/01/2022 12:01 PM EDT) Hepatitis C Antibody Nonreactive Nonreactive [facility] Comment:Antibodies to HCV no t detected; does not exclude early acuteHCV infection. Blood Venous blood specimen / Unknown 12/01/2022 12:01 PM EDT 12/01/2022 2:52 PM EDT Candace Palmer MD LAB BLOOD ORDERAB LES Final Result [facility] [address] [place] [phone] * (ABNORMAL) Lipid Panel, Standard (12/01/2022 12:01 PM EDT) Pathologist [facility] Triglycerides 79 <150 mg/dL [facility] Comment:Desirable Triglyceri de: less than 150 mg/dLBorderline High Triglyceride 150-199 mg/dLHigh Triglyceride: 200-499 mg/dLVery High Triglyceride: greater than or equal to 5OO mg/dL Cholesterol 178 <200 mg/dL [facility] Comment:Desirable Cholestero l: less than 200 mg/dLBorderline High Cholesterol: 200-239 mg/dLHigh Cholesterol: greater than 239 mg/dL LDL Cholesterol Calculated 100(H) <100 mg/dL [facility] Comment:Desirable LDL: less than 100 mg/dLNear Optimal/Above Optimal LDL: 110- 129 mg/dLBorderline High LDL: 130-159 mg/dLHigh LDL: 160-189 mg/dLVery High LDL: greater than or equal to 190 mg/dL HDL Cholesterol 63 >40 mg/dL [facility] Comment:Desirable HDL: great er than 40 mg/dL Note: This HDL assay may give artificially low results in patients with liver disease. 12/01/2022 12:0 1 PM EDT 12/01/2022 2:52 PM EDT Candace Palmer MD LAB BLOOD ORDERAB LES Final Result [facility] [address] [place] [phone] from Last 3 Months or Most Recently Relevant to Health Maintenance Insurance [employer] C3 Care Teams Recreational Vehicle Repairer Relationship Specialty Start Date End Date Amna Richards DO [address] [place], [place] PCP - General Family Medicine 10/12/23 [facility] 05/08/24
--- OUTSIDE RECORDS SUMMARY | 2024-12-15 18:32 | XMS_ITS | Encounter Summary ---
Author Organization [employer] Address [address] [place] [address] 7t [place] [address] Care Team Providers Care Inspector Balance Wheel Motion Name Role Phone Amna Richards DO Primary Care Provider + [phone] Reason for Visit * Reason Comments Med Refill Encounter Details Date Type Department Care Team ([facility] st Contact Info) Description 12/11/2024 Refill [facility] [address] [place], [place] [phone] Amna Richards DO [address] [place], [place] [phone] Muscle spasm Social History Tobacco Use Types Packs/Day Years [...] Description 01/08/2025 11:30 AM EDT Clinical Support [facility] [address] [place] [address] Ester Chatman RN 03/06/2025 3:00 PM EST Office Visit [facility] [address] [place] [address] Edna Latham, OD [address] [place] [address] documented as of this encounter Visit Diagnoses Diagnosis Muscle spasm Spasm of muscle documented in this encounter Additional Health Concerns Assessment Noted Time PHQ-9 Depression Total Score: 11 024 1:53 PM EDT documented as of this encounter Care Teams Inspector Balance Wheel Motion Relationship Specialty Start Date End Date Amna Richards DO [address] [place] [address] PCP - General Family Medicine 10/12/23 [facility] 05/08/24 documented as of this encounter
--- OUTSIDE RECORDS SUMMARY | 2024-12-15 18:33 | XMS_ITS | Encounter Summary ---
Author Organization [employer] Address [address] [place] [address] 7t [place] [address] Care Team Providers Care Conversion Worker Name Role Phone Candace Quiñones MD Primary Care Pro vider Amna Richards DO Primary Care Provider + [phone] Reason for Visit * Reason Comments Med Change Request Encounter Details Date Type Department Care Team ([facility] st Contact Info) Description 08/21/2022 Refill [facility] [address] [place] [address] Candace Quiñones MD [address] [place] [address] Social History Tobacco Use Types Packs/Day Years [...] Description 01/08/2025 11:30 AM EDT Clinical Support [facility] [address] [place] [address] Ester Chatman, RN 03/06/2025 3:00 PM EST Office Visit [facility] OPTOMETRY [address] [place], [place] [phone] Edna Latham OD [address] [place] [address] documented as of this encounter Visit Diagnoses Not on filedocumented in this encounter Additional Health Concerns Assessment Noted Time PHQ-9 Depression Total Score: 13 023 11:01 AM EDT documented as of this encounter Care Teams Conversion Worker Relationship Specialty Start Date End Date Candace Quiñones MD [address] [place] [phone] PCP - General Internal Medicine 07/24/22 10/11/23 Amna Richards DO [address] [place] [address] PCP - General Family Medicine 10/12/23 [facility] 05/08/24 documented as of this encounter
--- OUTSIDE RECORDS SUMMARY | 2024-12-15 18:33 | XMS_ITS | Encounter Summary ---
Author Organization [employer] Address [address] [place] [address] 7 [place] [address] Care Team Providers Care Windows Server Architect Name Role Phone Candace Quiñones MD Primary Care Pro vider Amna Richards DO Primary Care Provider + [phone] Reason for Visit * Reason Onset Date Comments Appointment Request 11/21/2022 Encounter Details Date Type Department Care Team ([facility] st Contact Info) Description 11/21/2022 Telephone [facility] MEDICINE [address] [place] [address] Candace Quiñones MD [address] [place] [address] Appointment Request Social History Tobacco Use Types [...] Clinical Support [facility] [address] [place] [address] Ester Chatman, JACOB 03/06/2025 3:00 PM EST Office Visit [facility] OPTOMETRY [address] [place], [place] [phone] Edna Latham, OD [address] [place], [place] [phone] documented as of this encounter Visit Diagnoses Not on filedocumented in this encounter Additional Health Concerns Assessment Noted Time PHQ-9 Depression Total Score: 11 023 3:01 PM EDT documented as of this encounter Care Teams Windows Server Architect Relationship Specialty Start Date End Date Candace Quiñones MD [address] [place], [place] [phone] PCP - General Internal Medicine 07/24/22 10/11/23 Amna Richards DO [address] [place] [address] PCP - General Family Medicine 10/12/23 [facility] 05/08/24 documented as of this encounter
--- OUTSIDE RECORDS SUMMARY | 2024-12-15 18:33 | XMS_ITS | Encounter Summary ---
Author Organization [employer] Address [address] [place] [address] 7t [place] [address] Care Team Providers Care Cable Tv Installer Name Role Phone Candace Quiñones MD Primary Care Pro vider Amna Richards DO Primary Care Provider + [phone] Reason for Visit * Reason Comments Med Refill Encounter Details Date Type Department Care Team (Late st Contact Info) Description 11/17/2022 Refill [facility] [address] [place] [address] Candace Quiñones MD [address] [place] [address] Fracture of vertebra due to osteoporosis, sequela [...] Description 01/08/2025 11:30 AM EDT Clinical Support [facility] [address] [place] [address] Ester Chatman, RN 03/06/2025 3:00 PM EST Office Visit [facility] OPTOMETRY [address] [place] [address] Edna Latham, OD [address] [place], [place] [phone] documented as of this encounter Visit Diagnoses Diagnosis Fracture of vertebra due to osteoporosis, sequela documented in this encounter Additional Health Concerns Assessment Noted Time PHQ-9 Depression Total Score: 11 023 3:01 PM EDT documented as of this encounter Care Teams Cable Tv Installer Relationship Specialty Start Date End Date Candace Quiñones MD [address] [place] [address] PCP - General Internal Medicine 07/24/22 10/11/23 Amna Richards DO [address] [place] [address] [phone] PCP - General Family Medicine 10/12/23 [facility] 05/08/24 documented as of this encounter
--- OUTSIDE RECORDS SUMMARY | 2024-12-15 18:33 | XMS_ITS | Encounter Summary ---
Author Organization [employer] Address [address] [place] [address] 7 [place] [address] Care Team Providers Care Car Repairer Name Role Phone Candace Quiñones MD Primary Care Pro vider Amna Richards DO Primary Care Provider + [phone] Reason for Visit * Reason Onset Date Comments Med Refill RN SURGERY Services 07/11/2023 The patient call ed stating that his RN SURGERY has not been getting paid, because his PCP has not completed paperwork from [facility]. I informed him that there are no entries in his chart, stating that any paperwork was received by medical records. I provided him with the HIM Department's fax number, and he agreed to contact [facility] to have them fax any paperwork that needs to be reviewed and signed by his provider. Encounter Details Date Type Department Care Team (Late st Contact Info) Description 07/11/[address] [facility] [address] [place], [place] [phone] Candace Quiñones MD [address] [place], [place] [phone] Social History Tobacco Use Types Packs/Day Years [...] EDT The patient called stating that his RN SURGERY has not been getting paid, because his PCP has not completed paperwork from [facility]. I informed him that there are no entries in his chart, stating that any paperwork was received by medical records. I provided him with the [facility] Department's fax number, and heagreed to contact [employer] to have them fax any paperwork that needs to be reviewed and signed by his provider. documented in this encounter Plan of Treatment Upcoming Encounters Date Type Department Care Team (Late st Contact Info) Description 01/08/2025 11:30 AM EDT Clinical Support [facility] [address] [place] [address] Ester Chatman RN 03/06/2025 3:00 PM EST Office Visit [facility] OPTOMET[facility] [address] [place], [place] [phone] Edna Latham, OD [address] [place] [address] documented as of this encounter Visit Diagnoses Not on filedocumented in this encounter Additional Health Concerns Assessment Noted Time PHQ-9 Depression Total Score: 11 023 3:01 PM EDT documented as of this encounter Care Teams Car Repairer Relationship Specialty Start Date End Date Candace Quiñones MD [address] [place] [address] PCP - General Internal Medicine 07/24/22 10/11/23 Amna Richards DO [address] [place] [address] PCP - General Family Medicine 10/12/23 [facility] 05/08/24 documented as of this encounter
--- OUTSIDE RECORDS SUMMARY | 2024-12-15 18:33 | XMS_ITS | Encounter Summary ---
Author Organization [employer] Address [address] [place] [address] 7 [place] [address] Care Team Providers Care Quality Assurance Tester Name Role Phone Candace Quiñones MD Primary Care Pro vider Amna Richards DO Primary Care Provider + [phone] Reason for Visit * Reason Onset Date Comments Medication Question 11/23/2022 Encounter Details Date Type Department Care Team ([facility] st Contact Info) Description 11/23/2022 Telephone [facility] MEDICINE [address] [place] [address] Candace Quiñones MD [address] [place] [address] Medication Question Social History Tobacco Use Types [...] Description 01/08/2025 11:30 AM EDT Clinical Support [facility] MEDICINE [address] [place] [address] Ester Chatman, RN 03/06/2025 3:00 PM EST Office Visit [facility] OPTOMETRY [address] [place], [place] [phone] Edna Latham, OD [address] [place] [address] documented as of this encounter Visit Diagnoses Not on filedocumented in this encounter Additional Health Concerns Assessment Noted Time PHQ-9 Depression Total Score: 11 023 3:01 PM EDT documented as of this encounter Care Teams Quality Assurance Tester Relationship Specialty Start Date End Date Candace Quiñones MD [address] [place] [address] PCP - General Internal Medicine 07/24/22 10/11/23 Amna Richards DO [address] [place] [phone] PCP - General Family Medicine 10/12/23 [facility] 05/08/24 documented as of this encounter
--- OUTSIDE RECORDS SUMMARY | 2024-12-15 18:33 | XMS_ITS | Encounter Summary ---
Author Organization [employer] Address [address] [place] [address] 7 [place] [address] Care Team Providers Care Row Boss Name Role Phone Candace Quiñones MD Primary Care Pro vider Amna Richards DO Primary Care Provider + [phone] Encounter Details Date Type Department Care Team (Late st Contact Info) Description 09/13/2023 Community Care Management [facility] MEDICINE [address] [place] [address] Candace Quiñones MD [address] [place] [address] Social History Tobacco Use Types Packs/Day Years [...] Clinical Support [facility] MEDICINE [address] [place] [address] Ester Chatman RN 03/06/2025 3:00 PM EST Office Visit [facility] OPTOMETRY [address] [place], [place] [phone] Edna Latham, OD [address] [place] [address] documented as of this encounter Visit Diagnoses Not on filedocumented in this encounter Additional Health Concerns Assessment Noted Time PHQ-9 Depression Total Score: 11 024 1:53 PM EDT documented as of this encounter Care Teams Row Boss Relationship Specialty Start Date End Date Candace Quiñones MD [address] [place] [address] PCP - General Internal Medicine 07/24/22 10/11/23 Amna Richards DO [address] [place] [address] PCP - General Family Medicine 10/12/23 [facility] 05/08/24 documented as of this encounter
--- OUTSIDE RECORDS SUMMARY | 2024-12-15 18:33 | XMS_ITS | Encounter Summary ---
Author Organization [employer] Address [address] [place] [address] 7 [place] [address] Care Team Providers Care Silver Designer Name Role Phone Candace Quiñones MD Primary Care Pro vider Amna Richards DO Primary Care Provider + [phone] Reason for Visit * Reason Onset Date Comments Appointment Request 09/07/2022 Encounter Details Date Type Department Care Team ([facility] Contact Info) Description 09/07/2022 Telephone [facility] MEDICINE [address] [place] [address] Candace Quiñones MD [address] [place] [address] Appointment Request Social History Tobacco Use Types [...] 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 Pt states he had a recent surgery and cannot attend. Please contact pt at [phone] German Speaker documented in this encounter Plan of Treatment Upcoming Encounters Date Type Department Care Team (Late st Contact Info) Description 01/08/2025 11:30 AM EDT Clinical Support [facility] MEDICINE [address] [place] [address] Ester Chatman, RN 03/06/2025 3:00 PM EST Office Visit [facility] OPTOMETRY [address] [place], [place] [phone] Edna Latham OD [address] [place] [address] documented as of this encounter Visit Diagnoses Not on filedocumented in this encounter Additional Health Concerns Assessment Noted Time PHQ-9 Depression Total Score: 13 023 11:01 AM EDT documented as of this encounter Care Teams Silver Designer Relationship Specialty Start Date End Date Candace Quiñones MD [address] [place] [address] PCP - General Internal Medicine 07/24/22 10/11/23 Amna Richards DO [address] [place] [address] [phone] PCP - General Family Medicine 10/12/23 [facility] 05/08/24 documented as of this encounter
--- OUTSIDE RECORDS SUMMARY | 2024-12-15 18:33 | XMS_ITS | Encounter Summary ---
Author Organization [employer] Address [address] [place] [address] 7t [place] [address] Care Team Providers Care Speech And Language Assistant Name Role Phone Amna Richards DO Primary Care Provider [phone] Reason for Visit * Reason Onset Date Comments Hospital Follow-up 06/23/2024 Encounter Details Date Type Department Care Team ([facility] st Contact Info) Description 06/23/2024 Telephone [facility] MEDICINE [address] [place], [place] [phone] Amna Richards DO [address] [place] [address] Hospital Follow-up Social History Tobacco Use Types [...] from pt requesting a HDF appt. Hospital: [facility] Date of admission: 06/16/2024 Discharge date: 06/18/2024 Diagnosed: COPD , Influenza A *Send message to [facility] Clinical Care Coordinators documented in this encounter Plan of Treatment Upcoming Encounters Date Type Department Care Team (Late st Contact Info) Description 01/08/2025 11:30 AM EDT Clinical Support [facility] MEDICINE [address] [place] [address] Ester Chatman, RN 03/06/2025 3:00 PM EST Office Visit [facility] OPTOMETRY [address] [place] [address] Edna Latham, OD [address] [place] [address] documented as of this encounter Visit Diagnoses Not on filedocumented in this encounter Additional Health Concerns Assessment Noted Time PHQ-9 Depression Total Score: 11 024 1:53 PM EDT documented as of this encounter Care Teams Speech And Language Assistant Relationship Specialty Start Date End Date Amna Richards DO [address] [place] [address] PCP - General Family Medicine 10/12/23 [facility] 05/08/24 documented as of this encounter
--- OUTSIDE RECORDS SUMMARY | 2024-12-15 18:33 | XMS_ITS | Encounter Summary ---
Author Organization [employer] Address [address] [place] [address] [place] [address] Care Team Providers Care Artistic Associate Name Role Phone Amna Richards DO Primary Care Provider + [phone] Amna Richards DO Primary Care Provider [phone] Candace Quiñones MD Primary Care Pro vider Amna Richards DO Primary Care Provider + [phone] Reason for Visit * Reason Onset Date Comments Med Refill 06/15/2022 Encounter Details Date Type Department Care Team (Late st Contact Info) Description 06/15/2022 Telephone [facility]IC[facility] [address] [place], [place] [phone] Amna Richards DO [address] [place], [place] [phone] Med Refill Social History Tobacco Use Types [...] States if it can be sent to [facility] pharmacy due to [facility] not having them in stock at this time . Pt also informed if tablets can be the oval not [facility] . documented in this encounter Plan of Treatment Upcoming Encounters Date Type Department Care Team (Late st Contact Info) Description 01/08/2025 11:30 AM EDT Clinical Support [facility] MEDIC[facility] [address] [place] [address] Ester Chatman RN 03/06/2025 3:00 PM EST Office Visit [facility] OPTOMETRY [address] [place] [address] Edna Latham OD [address] [place] [address] documented as of this encounter Visit Diagnoses Not on filedocumented in this encounter Additional Health Concerns Assessment Noted Time PHQ-9 Depression Total Score: 11 023 12:04 PM EST documented as of this encounter Care Teams Artistic Associate Relationship Specialty Start Date End Date Amna Richards DO [address] [place] [address] PCP - General Family Medicine 03/19/18 07/20/22 Amna Richards DO [address] [place] [address] PCP - General Family Medicine 07/21/22 07/23/22 Candace Quiñones MD [address] [place] [address] PCP - General Internal Medicine 07/24/22 10/11/23 Amna Richards DO [address] [place] [address] PCP - General Family Medicine 10/12/23 [facility] 05/08/24 documented as of this encounter
--- OUTSIDE RECORDS SUMMARY | 2024-12-15 18:33 | XMS_ITS | Encounter Summary ---
Author Organization [employer] Address [address] [place] [address] [place] [address] Care Team Providers Care Penciller Name Role Phone Amna Richards DO Primary Care Provider + [phone] Amna Richards DO Primary Care Provider [phone] Candace Quiñones MD Primary Care Pro vider Amna Richards DO Primary Care Provider + [phone] Reason for Visit * Reason Onset Date Comments Med Refill 05/31/2022 Encounter Details Date Type Department Care Team (Late st Contact Info) Description 05/31/2022 Telephone [facility] MEDICINE [address] [place], [place] [phone] Amna Richards DO [address] [place], [place] [phone] Med Refill Social History Tobacco Use Types [...] for HDF outreach. Patient was admitted to [facility] on 06/08/2022 and was discharged on 06/08/2022 [...] Wednesdays, and Walk-In Urgent Care Located in [facility]. 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 CC will request Discharge [...] Nebulizer medication. Albuterol Sulfate Please sent to [facility] [address] [facility] documented in this encounter Plan of Treatment Upcoming Encounters Date Type Department Care Team ([facility] st Contact Info) Description 01/08/2025 11:30 AM EDT Clinical Support [facility] MEDICINE [address] [place] [address] Ester Chatman, RN 03/06/2025 3:00 PM EST Office Visit [facility] OPTOMETRY [address] [place], [place] [phone] Edna Latham OD [address] [place], [place] [phone] documented as of this encounter Visit Diagnoses Not on filedocumented in this encounter Additional Health Concerns Assessment Noted Time PHQ-9 Depression Total Score: 11 023 12:04 PM EST documented as of this encounter Care Teams Penciller Relationship Specialty Start Date End Date Amna Richards DO [address] [place], [place] [phone] PCP - General Family Medicine 03/19/18 07/20/22 Amna Richarsd DO [address] [place], [place] [phone] PCP - General Family Medicine 07/21/22 07/23/22 Candace Quiñones MD [address] [place], [place] [phone] PCP - General Internal Medicine 07/24/22 10/11/23 Amna Richards DO [address] [place], [place] [phone] PCP - General Family Medicine 10/12/23 [facility] 05/08/24 documented as of this encounter
--- OUTSIDE RECORDS SUMMARY | 2024-12-15 18:33 | XMS_ITS | Encounter Summary ---
Author Organization [employer] Address [address] [place] [address] 7 [place] [address] Care Team Providers Care Tariff Publishing Agent Name Role Phone Candace Quiñones MD Primary Care Pro vider Amna Richards DO Primary Care Provider + [phone] Reason for Visit * Reason Onset Date Comments Appointment Request 12/21/2022 Encounter Details Date Type Department Care Team ([facility] st Contact Info) Description 12/21/2022 Telephone [facility] MEDICINE [address] [place] [address] Candace Quiñones MD [address] [place] [address] Appointment Request Social History Tobacco Use Types [...] EDT Tc from patient requesting to r/s [employer] appt from 12/21/22. Details:[employer] [place]; utox Tramadol lab conf documented in this encounter Plan of Treatment Upcoming Encounters Date Type Department Care Team (Late st Contact Info) Description 01/08/2025 11:30 AM EDT Clinical Support [facility] MEDICINE [address] [place] [address] Ester Chatman, JACOB 03/06/2025 3:00 PM EST Office Visit [facility] OPTOMETRY [address] [place], [place] [phone] Edna Latham, OD [address] [place], [place] [phone] documented as of this encounter Visit Diagnoses Not on filedocumented in this encounter Additional Health Concerns Assessment Noted Time PHQ-9 Depression Total Score: 11 10/23/ 023 3:01 PM EDT documented as of this encounter Care Teams Tariff Publishing Agent Relationship Specialty Start Date End Date Candace Quiñones MD [address] [place] [address] PCP - General Internal Medicine 07/24/22 10/11/23 Amna Richards DO [address] [place] [address] PCP - General Family Medicine 10/12/23 [facility] 05/08/24 documented as of this encounter
--- OUTSIDE RECORDS SUMMARY | 2024-12-15 18:33 | XMS_ITS | Encounter Summary ---
Author Organization [employer] Address [address] [place] [address] 7 [place] [address] Care Team Providers Care Lunchroom Mother Name Role Phone Candace Quiñones MD Primary Care Pro vider Amna Richards DO Primary Care Provider + [phone] Reason for Visit * Reason Onset Date Comments [employer] 07/09/2023 Encounter Details Date Type Department Care Team ([facility] st Contact Info) Description 07/09/2023 Telephone [facility] MEDICINE [address] [place] [address] Candace Quiñones MD [address] [place] [address] [employer]MER Social History Tobacco Use Types Packs/Day Years [...] Tc from pt calling in regards to [employer]. Pt stated [employer] has not been paid for about 4 weeks due to needing approval from pcp. Pt was transferred back from HIM and stated he spoke with [employer] and theyinformed pt pcp would need to contact them regarding [employer] services and from there get in contact with program to prove pt does require [employer] services. If any questions please contact pt at [phone]. documented in this encounter Plan of Treatment Upcoming Encounters Date Type Department Care Team (Late st Contact Info) Description 01/08/2025 11:30 AM EDT Clinical Support [facility] MEDICINE [address] [place] [address] Ester Chatman, RN 03/06/2025 3:00 PM EST Office Visit [facility] OPTOMETRY [address] [place] [address] Edna Latham, OD [address] [place] [address] documented as of this encounter Visit Diagnoses Not on filedocumented in this encounter Additional Health Concerns Assessment Noted Time PHQ-9 Depression Total Score: 11 10/23/ 023 3:01 PM EDT documented as of this encounter Care Teams Lunchroom Mother Relationship Specialty Start Date End Date Candace Quiñones MD [address] [place] [address] PCP - General Internal Medicine 07/24/22 10/11/23 Amna Richards DO [address] [place] [address] PCP - General Family Medicine 10/12/23 [facility] 05/08/24 documented as of this encounter
[2024-12-28 21:23] LABS: Calcium/Creatinine Ratio 143 mg/g creat (30-210)
== END 2024-12-14 17:06 | disposition home or self-care (01) ==
LOC: HO.LNP 17:05
PROVIDERS: Visit Provider Internal Medicine Endocrinology, Diabetes & Metabolism
DX: M81.0 Age-related osteoporosis without current pathological fracture (principal)
CPT/HCPCS: 82340; 82570